=== PATIENT | male | born 1935 | race Caucasian/White ===

== ENCOUNTER 2016-10-24 00:50 | Inpatient (IN) | payer OTHER ==
[~2016-10-24] VITALS: Ht 177.8 cm; Wt 78.9 kg
[2016-10-24] VITALS (51 sets, daily range): BP systolic 81–158; BP diastolic 47–79; PULSE 69–96; TEMP 36.4–36.9; O2SAT 97–99; Ht 177.8 cm; Wt 78.9 kg
[2016-10-24] MEDS ORDERED: SODIUM CHLORIDE 0.9% 500ML 500 ML IV STA (01:08)
[2016-10-24] MEDS ORDERED: ONDANSETRON INJ 2 MG/ML 2 ML VIAL IV STA (01:08)
[2016-10-24] MEDS ORDERED: MoRPHine SULFATE 4 MG/ML 1 ML CARP\\VIAL IV STA (01:08)
--- NOTE | 2016-10-24 01:08 | EMERGENCY ROOM VISIT NOTE ---
History Report prepared by Herminio: Laura Graves Under the Supervision of: Dr. Narinder Swanson M.D. First contact with patient: 00:57 Chief Complaint: ABDOMINAL PAIN Stated Complaint: CHEST PAIN History of Present Illness The patient is a 81 year old male who presents to the Emergency Room with complaints of constant abdominal pain beginning 2 hours prior to arrival. He rates the pain at an 8/10. The patient states that he still has the pain right now and that it is exacerbated with palpation. He states that he has no history of a cardiac catheterization. His states that he took 2 Aspirin tonight prior to arrival. Source of History: patient Onset: 2 hours prior to arrival Position: abdomen Symptom Intensity: rated at an 8/10 Timing: constant Modifying Factors (Worsening): other (palpation) Review of Systems See HPI for pertinent positives & negatives. A total of 10 systems reviewed and were otherwise negative. Past Medical & Surgical Medical Problems: (1) Hypertension Family History No pertinent family history Social History Smoking Status: Former Smoker Marital Status: Current/Historical Medications Scheduled Aspirin (Aspirin), 1 TAB PO DAILY Atenolol (Tenormin), 50 MG PO DAILY Finasteride (Proscar), 5 MG PO DAILY Indapamide (Lozol), 1.25 MG PO DAILY Multiple Vitamins W/ Minerals (Centrum Adults), 1 TAB PO DAILY Ocuvite Preservision (Ocuvite Preservision), 1 TAB PO DAILY Tamsulosin Hcl (Flomax), 0.4 MG PO DAILY Allergies Coded Allergies: No Known Allergies (Unverified , 10/24/16) Physical Exam Vital Signs Date Time Temp Pulse Resp B/P (MAP) Pulse Ox O2 Delivery O2 Flow Rate FiO2 10/24/16 04:31 95 20 144/72 94 Room Air 10/24/16 03:21 36.8 88 21 151/81 95 Room Air 10/24/16 02:48 88 151/81 95 Room Air 10/24/16 02:20 93 21 10/24/16 01:29 Room Air 10/24/16 01:29 Room Air 10/24/16 01:05 100 10/24/16 01:01 160/87 10/24/16 00:53 36.8 101 22 103/62 94 Room Air Physical Exam GENERAL: Patient is a healthy-appearing well-nourished male HEAD: Normocephalic atraumatic EYES: Ocular movements intact pupils equal and react to light OROPHARYNX mucous membranes are moist no exudates present no erythema or edema present NECK: Supple no nuchal rigidity CHEST: Good equal expansion LUNGS: Clear and equal to auscultation CARDIAC: Normal S1 and S2 ABDOMEN: Tenderness in the epigastric region. Positive guarding. BACK: No CVA tenderness EXTREMITIES: No pain upon palpation normal muscle strength in all groups no clubbing cyanosis or edema NEURO: Patient is following commands and answering questions appropriately. Alert and oriented x3 Cranial Nerves 2-12 grossly intact Medical Decision & Procedures ER Provider Diagnostic Interpretation: 1 view of chest as reviewed by me: No evidence of pneumonia, congestion, or pneumothorax Radiology results as stated below per my review and radiologist interpretation: CTA CHEST: ADDENDUM: added by Maria Elena Sharma MD on 10/24/2016 3:05 AM (-07:00) Dilated bowel and free intraperitoneal air in the upper abdomen. See CTA abdomen and pelvis for further details. No evidence of pulmonary embolism, thoracic aortic aneurysm or dissection. No evidence of intramural hematoma on noncontrast CT. Small amount of fluid in the esophagus with esophageal wall thickening, possibly esophagitis related to gastroesophageal reflux or other process. Recommend clinical correlation. Cardiac size within normal limits. Small pericardial fluid.effusion. Hyperlucent and hyperinflated lungs consistent with emphysema/COPD. Evidence of prior granulomatous disease with left lung granulomas and calcified left hilar lymph nodes. Incidental thyroid nodules. Radiology results as stated below per my review and radiologist interpretation: CTA ABDOMEN & PELVIS: Dilated colon with extraluminal air most prominent in the region of the sigmoid colon with additional free air in the upper abdomen. Findings are consistent with bowel perforation, likely at the level of the sigmoid colon. There is focal wall thickening of the sigmoid colon with adjacent air and fluid collections suspicious for pericolonic abscess in the setting of perforation. Underlying colonic mass or perforated diverticulitis not excluded. Surgery consultation recommended. Peripheral air along the cecum as well as at the hepatic flexure favored to represent air trapped beneath liquid stool versus (less likely) pneumatosis. Areas of colonic ischemia or pneumatosis elated to obstruction not entirely excluded. 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 No evidence of active extravasation or periaortic hemorrhage to suggest rupture. Abdominal aorta and visualized branch vessels appear patent. Thick-walled distal esophagus containing fluid. Findings may represent esophagitis related to gastroesophageal reflux disease or other etiology. Low-attenuation structure in the right posterior aspect of the prostate measuring 10 mm. This may represent cyst or other lesion. Decompressed bladder with wall thickening which may be related to underdistention. Correlate with urinalysis to exclude cystitis. Laboratory Results 10/24/16 01:23 Red Blood Count 4.46, Mean Corpuscular Volume 84.5, Mean Corpuscular Hemoglobin 28.0, Mean Corpuscular Hemoglobin Concent 33.2, Mean Platelet Volume 9.3, Neutrophils (%) (Auto) 93.0, Lymphocytes (%) (Auto) 3.3, Monocytes (%) (Auto) 3.1, Eosinophils (%) (Auto) 0.1, Basophils (%) (Auto) 0.1, Neutrophils # (Auto) 11.39, Lymphocytes # (Auto) 0.41, Monocytes # (Auto) 0.38, Eosinophils # (Auto) 0.01, Basophils # (Auto) 0.01 10/24/16 01:23 Test 10/24/16 01:23 10/24/16 01:29 10/24/16 02:40 White Blood Count 12.25 K/uL (4.8-10.8) Red Blood Count 4.46 M/uL (4.7-6.1) Hemoglobin 12.5 g/dL (14.0-18.0) Hematocrit 37.7 % (42-52) Mean Corpuscular Volume 84.5 fL (80-100) Mean Corpuscular Hemoglobin 28.0 pg (25-34) Mean Corpuscular Hemoglobin Concent 33.2 g/dl (32-36) Platelet Count 672 K/uL (130-400) Mean Platelet Volume 9.3 fL (7.4-10.4) Neutrophils (%) (Auto) 93.0 % Lymphocytes (%) (Auto) 3.3 % Monocytes (%) (Auto) 3.1 % Eosinophils (%) (Auto) 0.1 % Basophils (%) (Auto) 0.1 % Neutrophils # (Auto) 11.39 K/uL (1.4-6.5) Lymphocytes # (Auto) 0.41 K/uL (1.2-3.4) Monocytes # (Auto) 0.38 K/uL (0.11-0.59) Eosinophils # (Auto) 0.01 K/uL (0-0.5) Basophils # (Auto) 0.01 K/uL (0-0.2) RDW Standard Deviation 41.1 fL (36.4-46.3) RDW Coefficient of Variation 13.4 % (11.5-14.5) Immature Granulocyte % (Auto) 0.4 % Immature Granulocyte # (Auto) 0.05 K/uL (0.00-0.02) Red Blood Cell Morphology Unremarkable Estimated GFR () 64.4 Estimated GFR (Non- 55.6 BUN/Creatinine Ratio 21.9 (10-20) Calcium Level 11.3 mg/dl (8.5-10.1) Total Bilirubin 0.4 mg/dl (0.2-1) Direct Bilirubin 0.2 mg/dl (0-0.2) Aspartate Amino Transf (AST/SGOT) 12 U/L (15-37) Alanine Aminotransferase (ALT/SGPT) 18 U/L (12-78) Alkaline Phosphatase 93 U/L (45-117) Total Creatine Kinase 10 U/L (39-308) Creatine Kinase MB 0.7 ng/ml (0.5-3.6) Creatine Kinase MB Ratio 7.0 (0-3.0) Troponin I < 0.015 ng/ml (0-0.045) Total Protein 6.6 gm/dl (6.4-8.2) Albumin 2.4 gm/dl (3.4-5.0) Lipase 172 U/L (73-393) Bedside Hemoglobin 13.3 g/dl (14.0-18.0) Bedside Hematocrit 39 % (42-52) Bedside Sodium 132 mEq/L (135-144) Bedside Potassium 3.1 mEq/L (3.3-5.0) Bedside Chloride 89 mEq/L (101-112) Bedside Total CO2 28 mEq/l (24-31) Anion Gap 18.0 mmol/L (16-25) Bedside Blood Urea Nitrogen 27 mg/dl (7-18) Bedside Creatinine 1.1 mg/dl (0.6-1.3) Bedside Glucose (other) 156 mg/dl (70-99) Bedside Ionized Calcium (Pola) 1.09 mmol/l (1.12-1.32) Prothrombin Time 13.3 SECONDS (9.0-12.0) Prothromb Time International Ratio 1.2 (0.9-1.1) Activated Partial Thromboplast Time 26.1 SECONDS (21.0-31.0) Partial Thromboplastin Ratio 1.0 Labs reviewed by ED physician. Medications Administered Medications (Trade) Dose Ordered Sig/Andrzej Route Start Time Stop Time Status Last Admin Dose Admin Sodium Chloride 500 ml @ 999 mls/hr Q31M STAT IV 10/24/16 01:08 10/24/16 01:38 DC 10/24/16 01:08 999 MLS/HR Imipenem/ Cilastatin Sodium 500 mg/Dextrose 110 ml @ 100 mls/hr NOW STAT IV 10/24/16 03:17 10/24/16 04:22 DC 10/24/16 04:26 100 MLS/HR Daptomycin 414 mg/ Sodium Chloride 58.28 ml @ 100 mls/hr NOW STAT IV 10/24/16 03:27 10/24/16 04:01 DC 10/24/16 03:27 100 MLS/HR ECG Indication: abdominal pain Rate (beats per minute): 103 Rhythm: sinus tachycardia Findings: no acute ischemic change, no ectopy ED Course 0107: Past medical records reviewed. The patient was evaluated in room B2. A complete history and physical examination was performed. 0108: Ordered Zofran Inj 4 mg IV, Morphine Sulfate 4 mg IV, Sodium Chloride 500 ml @ 999 mls/hr IV. 0317: Ordered Imipenem/Cilastatin Sodium 500 mg/Dextrose 110 ml @ 100 mls/hr IV. 0327: Ordered Daptomycin 414 mg/Sodium Chloride 58.28 ml @ 100 mls/hr IV. 0334: I discussed the patient's case with Dr. Santana, he has agreed to evaluate the patient for further management and care. 0336: Upon reexamination the patient is resting. I discussed results and treatment plan with the patient. He verbalizes agreement and understanding. Medical Decision Blood Pressure Screening: Patient was found to have an elevated blood pressure and was referred to their primary care doctor for recheck and further treatment Medication Reconciliation: I attest that I have personally reviewed the patient' s current medication list Differential diagnosis: Etiologies such as appendicitis, diverticulitis, PUD, biliary pathology, UTI, pancreatitis, obstruction, mesenteric ischemia, aortic pathology, infections, inflammatory bowel disease, renal colic, as well as others were entertained. This is an 81-year-old male who presents emergency department complaining of epigastric pain. The patient is right tender on examination. He is hypotensive upon arrival to emergency department. Due to the nature the patient 's pain and abdominal examination the patient was immediately sent for CAT scan of the abdomen and pelvis. This was concerning for free air along what appears to be a puncture in the sigmoid colon. The patient was therefore pancultured and started on antibiotics. I will note that there was a delay between the patient's CAT scan being performed and the read by stat rad due to the high volume and high acuity of the emergency department .I did discuss the case with the surgeon on-call who agreed to see the patient. The patient was given normal saline bolus as well as morphine. Repeat examination revealed improvement in the patient's vital signs. I discussed my findings with the family her were in agreement with the treatment plan. Consults Time Called: 030 Consulting Physician: Dr. Santana Returned Call: 033 I discussed the patient's case with Dr. Santana, he has agreed to evaluate the patient for further management and care. Impression Primary Impression: Perforated abdominal viscus Critical Care I have personally spent greater than 90 minutes of critical care time in the direct management of this patient. This includes bedside care, interpretation of diagnostic studies, and testing, discussion with consultants, patient, and family members, and other required patient management activities. This 90 minutes is in excess of all separately billable procedures. Scribe Attestation The scribe's documentation has been prepared under my direction and personally reviewed by me in its entirety. I confirm that the note above accurately reflects all work, treatment, procedures, and medical decision making performed by me. Departure Information Dispostion Being Evaluated By Surgeon Referrals No Doctor, Assigned (PCP) Patient Instructions My [facility]
[2016-10-24] MEDS ORDERED: OPTIRAY 320 IV PRN (01:30)
[2016-10-24 01:33] LABS: HEMATOCRIT 37.7 % (42-52); MEAN CELL VOLUME 84.5 fL (80-100); MEAN CORPUSCULAR HGB CONC 33.2 g/dl (32-36); MEAN PLATELET VOLUME 9.3 fL (7.4-10.4); PLATELET COUNT 672 K/uL (130-400); RED BLOOD COUNT 4.46 M/uL (4.7-6.1); WHITE BLOOD COUNT 12.25 K/uL (4.8-10.8)
[2016-10-24 01:43] LABS: ISTAT CREATININE 1.1 mg/dl (0.6-1.3); ISTAT HEMOGLOBIN 13.3 g/dl (14.0-18.0); ISTAT IONIZED CALCIUM 1.09 mmol/l (1.12-1.32)
[2016-10-24 01:50] LABS: ALT/SGPT 18 U/L (12-78); AST/SGOT 12 U/L (15-37); BLOOD UREA NITROGEN 26 mg/dl (7-18); BUN/CREATININE RATIO 21.9 (10-20); CALCIUM 11.3 mg/dl (8.5-10.1); CARBON DIOXIDE 29 mmol/L (21-32); CHLORIDE 92 mmol/L (98-107); GLUCOSE 149 mg/dl (70-99); POTASSIUM 3.2 mmol/L (3.5-5.1); SODIUM 134 mmol/L (136-145)
[2016-10-24 01:56] LABS: ALKALINE PHOSPHATASE 93 U/L (45-117)
[2016-10-24 01:57] LABS: BASO % 0.1 %; BASO ABS # 0.01 K/uL (0-0.2); COMPLETE YES; EOS % 0.1 %; IG% 0.4 %; LYMPH % 3.3 %; LYMPH ABS # 0.41 K/uL (1.2-3.4); MONO % 3.1 %
[2016-10-24] MEDS ORDERED: INDA1TAB3 PO (03:06)
[2016-10-24] MEDS ORDERED: MULT-190 PO (03:06)
[2016-10-24] MEDS ORDERED: MULT-610 PO (03:06)
[2016-10-24] MEDS ORDERED: TAMS0.4C38 PO (03:06)
[2016-10-24] MEDS ORDERED: ATEN50TA8 PO (03:06)
[2016-10-24] MEDS ORDERED: FINA5TAB4 PO (03:06)
[2016-10-24] MEDS ORDERED: ASPI1TAB83 PO (03:06)
[2016-10-24 03:13] LABS: INR 1.2 (0.9-1.1); PROTHROMBIN TIME (PATIENT) 13.3 SECONDS (9.0-12.0)
[2016-10-24] MEDS ORDERED: IMIPENEM/CILASTATIN IV 500 MG in DEXTROSE 5% 100ML 100 ML IV STA (03:17)
[2016-10-24] MEDS ORDERED: SODIUM CHLORIDE 0.9% IV STA (03:27)
[2016-10-24] MEDS ORDERED: DAPTOMYCIN IV STA (03:27)
--- NOTE | 2016-10-24 04:24 | History and Physical ---
History & Physical Date & Time of Service: Oct 24, 2016 at 04:20 Chief Complaint: Chest Pain Primary Care Physician: No Doctor, Assigned History of Present Illness Source: patient, family Family History No pertinent family history Social History Smoking Status: Former Smoker Marital Status: Allergies Coded Allergies: No Known Allergies (Unverified , 10/24/16) Home Medications Scheduled Aspirin (Aspirin), 1 TAB PO DAILY Atenolol (Tenormin), 50 MG PO DAILY Finasteride (Proscar), 5 MG PO DAILY Indapamide (Lozol), 1.25 MG PO DAILY Multiple Vitamins W/ Minerals (Centrum Adults), 1 TAB PO DAILY Ocuvite Preservision (Ocuvite Preservision), 1 TAB PO DAILY Tamsulosin Hcl (Flomax), 0.4 MG PO DAILY Review of Systems Constitutional: + weight loss Abdomen: + pain Physical Exam Vital Signs Date Time Temp Pulse Resp B/P (MAP) Pulse Ox O2 Delivery O2 Flow Rate FiO2 10/24/16 03:21 36.8 88 21 151/81 95 Room Air 10/24/16 02:48 88 151/81 95 Room Air 10/24/16 02:20 93 21 10/24/16 01:29 Room Air 10/24/16 01:29 Room Air 10/24/16 01:05 100 10/24/16 01:01 160/87 10/24/16 00:53 36.8 101 22 103/62 94 Room Air General Appearance: + mild distress Head: normocephalic, atraumatic Eyes: PERRL, EOMI ENT: hearing grossly normal Neck: supple, no JVD Respiratory/Chest: no respiratory distress, no accessory muscle use Cardiovascular: no edema Abdomen/GI: + tenderness, + guarding, + rebound Neurologic/Psych: alert Skin: normal color, warm/dry Diagnostics Laboratory Results Results Past 24 Hours Test 10/24/16 01:23 10/24/16 01:29 10/24/16 02:40 Range/Units White Blood Count 12.25 4.8-10.8 K/uL Red Blood Count 4.46 4.7-6.1 M/uL Hemoglobin 12.5 14.0-18.0 g/dL Hematocrit 37.7 42-52 % Mean Corpuscular Volume 84.5 80-100 fL Mean Corpuscular Hemoglobin 28.0 25-34 pg Mean Corpuscular Hemoglobin Concent 33.2 32-36 g/dl Platelet Count 672 130-400 K/uL Mean Platelet Volume 9.3 7.4-10.4 fL Neutrophils (%) (Auto) 93.0 % Lymphocytes (%) (Auto) 3.3 % Monocytes (%) (Auto) 3.1 % Eosinophils (%) (Auto) 0.1 % Basophils (%) (Auto) 0.1 % Neutrophils # (Auto) 11.39 1.4-6.5 K/uL Lymphocytes # (Auto) 0.41 1.2-3.4 K/uL Monocytes # (Auto) 0.38 0.11-0.59 K/uL Eosinophils # (Auto) 0.01 0-0.5 K/uL Basophils # (Auto) 0.01 0-0.2 K/uL RDW Standard Deviation 41.1 36.4-46.3 fL RDW Coefficient of Variation 13.4 11.5-14.5 % Immature Granulocyte % (Auto) 0.4 % Immature Granulocyte # (Auto) 0.05 0.00-0.02 K/uL Red Blood Cell Morphology Unremarkable Sodium Level 134 136-145 mmol/L Potassium Level 3.2 3.5-5.1 mmol/L Chloride Level 92 98-107 mmol/L Carbon Dioxide Level 29 21-32 mmol/L Anion Gap 13.0 18.0 16-25 mmol/L Blood Urea Nitrogen 26 7-18 mg/dl Creatinine 1.20 0.60-1.40 mg/dl Estimated GFR () 64.4 Estimated GFR (Non- 55.6 BUN/Creatinine Ratio 21.9 10-20 Random Glucose 149 70-99 mg/dl Calcium Level 11.3 8.5-10.1 mg/dl Total Bilirubin 0.4 0.2-1 mg/dl Direct Bilirubin 0.2 0-0.2 mg/dl Aspartate Amino Transf (AST/SGOT) 12 15-37 U/L Alanine Aminotransferase (ALT/SGPT) 18 12-78 U/L Alkaline Phosphatase 93 45-117 U/L Total Creatine Kinase 10 39-308 U/L Creatine Kinase MB 0.7 0.5-3.6 ng/ml Creatine Kinase MB Ratio 7.0 0-3.0 Troponin I < 0.015 0-0.045 ng/ml Total Protein 6.6 6.4-8.2 gm/dl Albumin 2.4 3.4-5.0 gm/dl Lipase 172 73-393 U/L Bedside Hemoglobin 13.3 14.0-18.0 g/dl Bedside Hematocrit 39 42-52 % Bedside Sodium 132 135-144 mEq/L Bedside Potassium 3.1 3.3-5.0 mEq/L Bedside Chloride 89 101-112 mEq/L Bedside Total CO2 28 24-31 mEq/l Bedside Blood Urea Nitrogen 27 7-18 mg/dl Bedside Creatinine 1.1 0.6-1.3 mg/dl Bedside Glucose (other) 156 70-99 mg/dl Bedside Ionized Calcium (Pola) 1.09 1.12-1.32 mmol/l Prothrombin Time 13.3 9.0-12.0 SECONDS Prothromb Time International Ratio 1.2 0.9-1.1 Activated Partial Thromboplast Time 26.1 21.0-31.0 SECONDS Partial Thromboplastin Ratio 1.[address] showing free air/pneumotosis; ? sigmoid mass Impression Assessment and Plan free air likely sigmoid colon source will need ex-lap and likely ac's procedure vs repair gastric/duodenal perforated ulcer discussed with patient and family at bedside risks include bleeding/infection/dvt/pe/mi/sepsis/injury to ureter/bowel/ bladder etc... will likely require colostomy questions answered. will proceed stat
[2016-10-24] MEDS ORDERED: LIDOCAINE HCL 2% 2 ML VIAL (20MG/ML) ONE (04:28)
[2016-10-24] MEDS ORDERED: ONDANSETRON INJ 2 MG/ML 2 ML VIAL ONE (04:28)
[2016-10-24] MEDS ORDERED: PROPOFOL IV EMULSION 10 MG/ML 20 ML VIAL IV ONE (04:28)
[2016-10-24] MEDS ORDERED: ROCURONIUM BROMIDE 10 MG/ML 5 ML VIAL ONE (04:29)
[2016-10-24] MEDS ORDERED: FENTANYL CITRATE INJ 50 MCG/1 ML 2 ML VIAL ONE (04:30)
[2016-10-24] MEDS ORDERED: ATROPINE SULFATE 0.1 MG/ML 5ML SYR IV PRN (04:45)
[2016-10-24] MEDS ORDERED: EpHEDrine SULFATE INJ 50 MG/ML AMP IV PRN (04:45)
[2016-10-24] MEDS ORDERED: ONDANSETRON INJ 2 MG/ML 2 ML VIAL IV PRN ×2 (04:45→07:30)
[2016-10-24] MEDS ORDERED: HYDROmorphone INJ 2 MG/ML SYR/VIAL IV PRN (04:45)
[2016-10-24] MEDS ORDERED: PHENYLEPHRINE 100MCG/ML 5ML SYR IV PRN (04:45)
[2016-10-24] MEDS: POTASSIUM CHLR 10 MEQ / WTR 10 MEQ in PREMIXED WATER 100 ML IV SCH ×2 (04:53→05:53)
[2016-10-24] MEDS ORDERED: ALBUMIN HUMAN 5% 12.5 GM/250 ML VIAL IV ONE ×2 (06:14→06:18)
--- NOTE | 2016-10-24 06:41 | DIAGNOSTIC IMAGING REPORT ---
CHEST ONE VIEW PORTABLE HISTORY:81 yearsMaleCHEST PAIN COMPARISON: Chest CT 10/24/2016 TECHNIQUE: Portable upright AP view of the chest FINDINGS: Cardiac silhouette is within normal limits. There is a calcified granuloma of the left upper lobe. Emphysematous changes are noted without pneumothorax, pleural effusion or focal airspace consolidation. There is mild right hemidiaphragmatic elevation. The bones are grossly intact. IMPRESSION: 1. Emphysema without acute cardiopulmonary process. 2. Prior granulomatous disease. The above report was generated using voice recognition software. It may contain grammatical, syntax or spelling errors. Electronically signed by: Campbell Sterling 10/24/2016 6:39 AM Dictated Date/Time: 10/24/2016 6:37 AM
--- NOTE | 2016-10-24 07:21 | [facility] Operative Report ---
Operative Report Operative Date Oct 24, 2016. Pre-Operative Diagnosis Perforated viscus Post-Operative Diagnosis Perforated sigmoid colon Procedure(s) Performed Exploratory laparotomy, sigmoid colectomy, end colostomy, cecostomy with decompression, and abdominal washout Surgeon Dr. Fabian Silver Collection Development Librarian Surgeon(s) None Estimated Blood Loss 20ml Findings perforated sigmoid colon;free air/fluid throughout abdomen; massively dilated cecum. Specimens A. Sigmoid colon Drains 19 gavin times 2 Anesthesia get Complication(s) None Disposition Surgical ICU Description of Procedure After informed consent was obtained the patient was taken to the operating suite placed in supine position. After successful intubation and nasogastric tube and Harrison catheter were placed. The abdomen was sterilely prepped and draped in usual fashion. Midline incision from above the umbilicus down to the suprapubic area was made with a 10 blade scalpel and carried down through the soft tissue using electrocautery. Anterior rectus fascia was opened using electrocautery exposing peritoneum. Peritoneum was elevated with hemostats and incised under direct vision using a Metzenbaum scissor. We then used electrocautery to open the incision the both poles. Immediately upon entering the abdomen there was a large amount of purulent fluid. There was not a foul odor but there was a large amount of white edgar free fluid as well as free air. The cecum was massively dilated up to the hepatic flexure. We began by simply exploring the abdomen irrigating and suctioning. Initially had trouble identifying exactly where the perforation was. Stomach and duodenum appeared normal. The cecum appeared normal other than being massively dilated. We followed this clear around the sigmoid colon. The sigmoid colon was markedly inflamed and stuck to the pelvic brim. I freed this up using blunt finger fractionation and encountered a very large abscess cavity. Once we free this up there was an obvious perforation of the sigmoid colon. I began by transecting the sigmoid colon proximal to this area with a MADELYN purple cartridge stapler. I then used LigaSure to come down the mesentery. Just distal to the perforation I was able to free up the mesentery and make a small opening in it. We used a another MADELYN purple cartridge linear stapler to transect this. Once we did this I used LigaSure to take down the mesentery and handed off portion of sigmoid colon to be sent to pathology. It was very hard and was unclear to me whether this was diverticular disease versus a perforated tumor. I did not see any evidence of tumor anywhere else such as the peritoneal surfaces or the liver. Once we had the perforation out I did thoroughly irrigated with irrigating all 4 quadrants of the abdomen. The cecum being massively dilated starting to have some serosal tears on. He despite denying abdominal surgery in the past clearly did have surgery as we saw silk sutures and the mesentery as well as his appendix was missing. I did make a small cecostomy and decompressed the entire sigmoid colon up to the hepatic flexure. We milked out brown liquid stool as well as air. Once we had this adequately decompressed I then used a MADELYN stapler with a 10 cartridge to close the cecostomy. I did oversew the staple line with 3-0 silk in Lembert fashion. I did explore the abdomen one final time. I saw no other gross abnormalities. We did a final irrigation. I fashioned a colostomy site in the left lower quadrant using electrocautery. I made a cruciate incision in the fascia and using blunt spreading of the muscle. A [place] clamp was then used to pull the end of the left colon out through this was performed without tension and without twisting it. I then used 2 #19 Gavin drains through separate stab incisions one directed into the pelvis and one directed along the left paracolic gutter up in the left upper quadrant. There is secured to skin using 2-0 silk. I then closed the fascia using #1 PDS starting at either pole running them and securing them in the midline. Soft tissue was irrigated and closure using skin moe loosely. I then fashioned a Farrah colostomy with 3-0 PDS. I placed an appliance bag. We then covered the incision was silver dressing gauze and tape. The patient remained intubated and was transferred to the intensive care unit in critical condition I attest to the content of the Intraoperative Record and any orders documented therein. Any exceptions are noted below.
[2016-10-24] MEDS ORDERED: PIPERACILL/TAZOBAC CONSULT ACTIVE PRN (07:30)
[2016-10-24] MEDS ORDERED: MoRPHine SULFATE 4 MG/ML 1 ML CARP\\VIAL IV PRN (07:30)
[2016-10-24] MEDS ORDERED: PIPERACILL/TAZOBAC IV 2.25 GM in DEXTROSE 5% 100ML 100 ML IV SCH (07:30)
[2016-10-24] MEDS ORDERED: MoRPHine SULFATE 2 MG/ML CARP IV PRN (07:30)
[2016-10-24] MEDS ORDERED: SODIUM CHLORIDE 0.9% 1000ML 1,000 ML IV SCH (07:30)
--- NOTE | 2016-10-24 07:44 | DIAGNOSTIC IMAGING REPORT ---
CT ANGIOGRAM OF THE CHEST COMBO; CT angiogram of the abdomen and pelvis CLINICAL HISTORY: Epigastric abdominal pain. COMPARISON STUDY: Chest x-ray dated 10/24/2016. TECHNIQUE: Unenhanced CT scan of the chest was performed. Subsequent, following the IV administration of 119 cc of Optiray 320, CT angiogram of the chest, abdomen, and pelvis was performed from the thoracic inlet to the proximal femora. Images are reviewed in the axial, sagittal, and coronal planes. 3-D MIPS images are created and assessed. IV contrast was administered without complication. Automated dose control exposure was utilized. CT DOSE: 972.02 mGy.cm FINDINGS: CHEST: Thyroid: Imaged portions of the thyroid gland are normal in size and attenuation. There are numerous bilateral low-attenuation nodules. The largest is on the left and measures up to 1.1 cm. Coarse calcifications are noted. Thoracic aorta: No intramural hematoma is identified on the unenhanced series. There is atherosclerotic calcification of the thoracic aorta, which is normal in caliber and demonstrates standard 3-vessel arch anatomy. No dissection is seen. The arch vessels are widely patent. Pulmonary vasculature: The pulmonary trunk is normal in caliber. There are no filling defects identified in the central pulmonary vessels to indicate pulmonary embolus. Note that this examination was not protocoled for evaluation of the pulmonary arteries. Heart: The heart is normal in size and there is trace pericardial effusion. The coronary arteries are calcified. Lungs and pleural spaces: There is advanced emphysema. No airspace consolidation or pleural effusion is identified. The trachea and central airways are clear. Scattered calcified granulomas are observed. A 3 mm pleural-based nodule is seen in the right middle lobe on image #206 of the unenhanced series. Mediastinum: There is no mediastinal lymphadenopathy. Rsoario: There are calcified hilar nodes. No hilar adenopathy is seen. Axillae: There is no axillary lymphadenopathy. Bony thorax: The skeletal structures are osteopenic. No lytic or blastic lesions are identified. Degenerative change is seen throughout the thoracic spine. ABDOMEN AND PELVIS: Liver: The contrast-enhanced liver is normal in size, contour, and attenuation. There is no intrahepatic biliary ductal dilatation. Numerous calcified hepatic granulomas are identified. A 1.5 cm cyst is noted in the left hepatic lobe. Additional subcentimeter hypodensities also likely represent cysts but are too small for definitive characterization. Gallbladder: Unremarkable. Spleen: Normal in size and attenuation. There are numerous calcified splenic granulomas. Pancreas: Atrophic and grossly unremarkable. Adrenal glands: There is nodular thickening of the adrenal glands. Kidneys: The contrast enhanced kidneys are atrophic and without hydronephrosis. There is a left-sided extrarenal pelvis. The kidneys enhance symmetrically. Abdominal aorta and iliac arteries: There is advanced atherosclerotic calcification of the abdominal aorta and iliac arteries. 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 This measures 3.3 cm in AP diameter and 3.4 cm in transverse outer. A focal dissection is seen within this aneurysm as seen on axial image #190. The abdominal aorta is widely patent. The iliac arteries are widely patent bilaterally, as are the common femoral arteries and the imaged portions of the proximal superficial femoral arteries. Major branches of the abdominal aorta: The celiac trunk, superior mesenteric, and inferior mesenteric arteries are widely patent. Hepatic arterial anatomy is conventional. The splenic artery is patent. Single renal arteries are widely patent bilaterally. Stomach and bowel: Mild wall thickening is seen in the mid to distal esophagus. There is a small hiatal hernia. The stomach and duodenum otherwise normal in configuration. There is no evidence of bowel obstruction. The right colon is markedly distended, filled with gas and liquid stool. The cecum measures up to 10 cm in diameter. There is pneumatosis intestinalis involving the right colon, greatest in the cecum. There is mild colonic diverticulosis without CT evidence of acute diverticulitis. There is abnormal wall thickening versus underdistention seen involving a portion of the sigmoid colon seen on axial image #353. The appendix is not clearly identified. Peritoneum: There are numerous foci of intraperitoneal free air is seen throughout the abdomen and pelvis, greatest in the pelvis. There is a small volume of perihepatic and perisplenic ascites, as well as fluid in the paracolic gutters and pelvis. Lymphadenopathy: None. Pelvic viscera: The prostate gland is enlarged and heterogeneous measuring 6.0 cm in transverse diameter. There is median lobe hypertrophy. A 1.4 cm low-attenuation nodule is noted in the right lobe of the prostate gland on image #426. The bladder wall is thickened and trabeculated suggesting the sequelae of chronic outlet obstruction. Skeletal structures: The skeletal structures are osteopenic. There is moderate to advanced lumbosacral spondylosis. Advanced arthritic change is seen in the hips. No lytic or blastic lesions are seen. IMPRESSION: 1. Advanced emphysema. 2. There is no aneurysm or dissection seen involving the thoracic aorta. 3. No airspace consolidation or pleural effusion is identified. 4. Wall thickening and hyperemia is suggested involving the distal esophagus. Correlate clinically for evidence of esophagitis. 5. 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 6. The right colon is markedly abnormal. The cecum is distended and fluid-filled. There is pneumatosis intestinalis involving the cecum, and the appearance is highly concerning for ischemic colitis. 7. There is underdistention versus abnormal wall thickening identified in the sigmoid colon. Adjacent free air and fluid are identified. A mass lesion with perforation is not excluded. 8. There are numerous foci of intraperitoneal free air throughout the abdomen and pelvis consistent with visceral perforation. A small volume of abdominopelvic ascites is identified. This is most likely related to either the sigmoid colon or the right colon. Surgical consultation is advised. 9. The prostate gland is enlarged and heterogeneous, and there is evidence of chronic bladder obstruction. A 1.4 cm low-attenuation nodule is suggested in the right lobe of the prostate. Follow-up with serum PSA levels is recommended. 10. The celiac trunk, superior mesenteric artery, and inferior mesenteric artery are widely patent. 11. Additional findings as above. Electronically signed by: Jed Guidry M.D. 10/24/2016 7:43 AM Dictated Date/Time: 10/24/2016 7:22 AM
[2016-10-24] MEDS ORDERED: LACTATED RINGER'S 1000ML 1,000 ML IV SCH (08:00)
[2016-10-24] MEDS ORDERED: PIPERACILL/TAZOBAC IV 3.375 GM in DEXTROSE 5% 100ML IV ONE (08:00)
--- NOTE | 2016-10-24 08:02 | Critical Care Consultation ---
Critical Care Consultation Date of Consultation: Oct 24, 2016. Attending Physician: Fabian Silver D.O. Reason for Consultation: Perforated Bowel History of Present Illness He was admitted to the hospital with a perforated bowel. Required exploration and diversion. He comes to the ICU after surgery intubated and critically ill. The operative information and anesthesia interventions noted. Directly reviewed care and performed evaluation with ICU team AM today. Past Medical/Surgical History HTN BPH Mild Cognitive Decline--able to perform all ADLs OA with hip pain--uses a cane Family History No pertinent family history Social History Smoking Status: Former Smoker Marital Status: Allergies Coded Allergies: No Known Allergies (Unverified , 10/24/16) Home Medications Scheduled Aspirin (Aspirin), 1 TAB PO DAILY Atenolol (Tenormin), 50 MG PO DAILY Finasteride (Proscar), 5 MG PO DAILY Indapamide (Lozol), 1.25 MG PO DAILY Multiple Vitamins W/ Minerals (Centrum Adults), 1 TAB PO DAILY Ocuvite Preservision (Ocuvite Preservision), 1 TAB PO DAILY Tamsulosin Hcl (Flomax), 0.4 MG PO DAILY Current Inpatient Medications Current Inpatient Medications Medications (Trade) Dose Ordered Sig/Andrzej Route Start Time Stop Time Status Last Admin Dose Admin Ioversol (Optiray 320) 125 ml UD PRN IV 10/24/16 01:30 10/28/16 01:29 Hydromorphone HCl (Dilaudid Inj) 0.5 mg Q5M PRN IV 10/24/16 04:45 10/24/16 10:00 Ondansetron HCl (Zofran Inj) 4 mg ONE PRN IV 10/24/16 04:45 10/24/16 10:00 Ephedrine Sulfate (EpHEDrine SULFATE INJ) 5 mg Q5M PRN IV 10/24/16 04:45 10/24/16 10:00 Atropine Sulfate (Atropine Sulfate 0.1MG/Ml Inj) 0.5 mg Q1M PRN IV 10/24/16 04:45 10/24/16 10:00 Phenylephrine HCl (Edvin-Synephrine 500MCG/5ML Syr) 100 mcg Q5M PRN IV 10/24/16 04:45 10/24/16 10:00 Sodium Chloride 1,000 ml @ 125 mls/hr Q8H IV 10/24/16 07:30 11/23/16 07:29 Piperacillin Sod/ Tazobactam Sod 3.375 gm/Dextrose 115 ml @ 230 mls/hr 0800 ONCE IV 10/24/16 08:00 10/24/16 08:29 Piperacillin Sod/ Tazobactam Sod 3.375 gm/Dextrose 115 ml @ 28.75 mls/ hr Q8H IV 10/24/16 14:00 11/03/16 13:59 Piperacillin Sod/ Tazobactam Sod (Consult) 1 ea UD PRN N/A 10/24/16 07:30 11/23/16 07:29 Lactated Ringer's 1,000 ml @ 150 mls/hr Q6H40M IV 10/24/16 08:00 11/23/16 07:59 Morphine Sulfate (MoRPHine SULFATE INJ) 2 mg Q3H PRN IV 10/24/16 07:30 11/07/16 07:29 Morphine Sulfate (MoRPHine SULFATE INJ) 4 mg Q3H PRN IV 10/24/16 07:30 11/07/16 07:29 Ondansetron HCl (Zofran Inj) 4 mg Q6H PRN IV 10/24/16 07:30 11/23/16 07:29 Acetaminophen 100 ml @ 400 mls/hr Q8H PRN IV 10/24/16 07:30 11/23/16 07:29 Enoxaparin Sodium (Lovenox Inj) 40 mg QAM SQ 10/24/16 09:00 11/23/16 08:59 UNV Lorazepam (Ativan Inj) 1 mg UD PRN IV 10/24/16 07:45 11/23/16 07:44 UNV Fentanyl Citrate (Fentanyl Inj) 25 mcg UD PRN IV 10/24/16 07:45 11/07/16 07:44 UNV Potassium Chloride 10 meq/ Prmx 100 ml @ 100 mls/hr NOW STAT IV 10/24/16 07:44 10/24/16 08:43 UNV Lactated Ringer's 1,000 ml @ 125 mls/hr Q8H IV 10/24/16 07:45 11/23/16 07:44 UNV Review of Systems The review was limited given the intubation and postoperative sedation. No clear target pain. Awakes to time. Synchronous on the vent. Physical Exam Date Time Temp Pulse Resp B/P (MAP) Pulse Ox O2 Delivery O2 Flow Rate FiO2 10/24/16 07:45 87 16 149/74 (89) 99 10/24/16 07:35 85 16 144/72 (91) 97 10/24/16 07:25 85 16 152/68 (107) 99 Mechanical Ventilator 100 10/24/16 07:20 100 10/24/16 07:15 36.5 88 16 158/75 (116) 99 Mechanical Ventilator 100 10/24/16 04:31 95 20 144/72 94 Room Air 10/24/16 03:21 36.8 88 21 151/81 95 Room Air 10/24/16 02:48 88 151/81 95 Room Air 10/24/16 02:20 93 21 10/24/16 01:29 Room Air 10/24/16 01:29 Room Air 10/24/16 01:05 100 10/24/16 01:01 160/87 10/24/16 00:53 36.8 101 22 103/62 94 Room Air Gen--frail elderly man--cachectic HEENT--no focal targets. ETT in place. Respiratory--exchange is adequate without substantial wheezing/rhonchi Cardio--rate and volume ok. for now. Perfusion adequate--no JVD observed. No substantial murmur GI--quiet--drains in place --cardona to gravity Musculo--poor muscle mass Neuro--no focal deficits appreciated--responding to nursing Psych--negative Derm--no lesions of concern at this point. Laboratory Results Last 24 Hours Test 10/24/16 01:23 10/24/16 01:29 10/24/16 02:40 White Blood Count 12.25 K/uL Red Blood Count 4.46 M/uL Hemoglobin 12.5 g/dL Hematocrit 37.7 % Mean Corpuscular Volume 84.5 fL Mean Corpuscular Hemoglobin 28.0 pg Mean Corpuscular Hemoglobin Concent 33.2 g/dl Platelet Count 672 K/uL Mean Platelet Volume 9.3 fL Neutrophils (%) (Auto) 93.0 % Lymphocytes (%) (Auto) 3.3 % Monocytes (%) (Auto) 3.1 % Eosinophils (%) (Auto) 0.1 % Basophils (%) (Auto) 0.1 % Neutrophils # (Auto) 11.39 K/uL Lymphocytes # (Auto) 0.41 K/uL Monocytes # (Auto) 0.38 K/uL Eosinophils # (Auto) 0.01 K/uL Basophils # (Auto) 0.01 K/uL RDW Standard Deviation 41.1 fL RDW Coefficient of Variation 13.4 % Immature Granulocyte % (Auto) 0.4 % Immature Granulocyte # (Auto) 0.05 K/uL Red Blood Cell Morphology Unremarkable Sodium Level 134 mmol/L Potassium Level 3.2 mmol/L Chloride Level 92 mmol/L Carbon Dioxide Level 29 mmol/L Anion Gap 13.0 mmol/L 18.0 mmol/L Blood Urea Nitrogen 26 mg/dl Creatinine 1.20 mg/dl Estimated GFR () 64.4 Estimated GFR (Non- 55.6 BUN/Creatinine Ratio 21.9 Random Glucose 149 mg/dl Calcium Level 11.3 mg/dl Total Bilirubin 0.4 mg/dl Direct Bilirubin 0.2 mg/dl Aspartate Amino Transf (AST/SGOT) 12 U/L Alanine Aminotransferase (ALT/SGPT) 18 U/L Alkaline Phosphatase 93 U/L Total Creatine Kinase 10 U/L Creatine Kinase MB 0.7 ng/ml Creatine Kinase MB Ratio 7.0 Troponin I < 0.015 ng/ml Total Protein 6.6 gm/dl Albumin 2.4 gm/dl Lipase 172 U/L Bedside Hemoglobin 13.3 g/dl Bedside Hematocrit 39 % Bedside Sodium 132 mEq/L Bedside Potassium 3.1 mEq/L Bedside Chloride 89 mEq/L Bedside Total CO2 28 mEq/l Bedside Blood Urea Nitrogen 27 mg/dl Bedside Creatinine 1.1 mg/dl Bedside Glucose (other) 156 mg/dl Bedside Ionized Calcium (Pola) 1.09 mmol/l Prothrombin Time 13.3 SECONDS Prothromb Time International Ratio 1.2 Activated Partial Thromboplast Time 26.1 SECONDS Partial Thromboplastin Ratio 1.0 Assessment & Plan Perforated Viscous with surgical exploration and diversion: 1. Cardio--will volume replace as needed.--Currently stable--track for urine output. May require IV metoprolol given the history of Atenolol. 2. Pulmonary--currently tolerating limited support. Recheck CXR. If able plan to extubate in next 24 hours 3. GI--supportive care for now. enteral feeding when surgery advises-- 4. F/E/N--will optimize numbers 5. Renal--track urine output closely 6. General ICU--PICC for access/antibiotics/replacements--DVT prophylaxis
[2016-10-24] MEDS ORDERED: POTASSIUM CHLR 10 MEQ / WTR 10 MEQ in PREMIXED WATER 100 ML IV ONE (08:30)
--- NOTE | 2016-10-24 08:37 | Anesthesiology Progress Note ---
Anesthesia Post Op Note Date & Time Oct 24, 2016 at 08:35 Vital Signs Pain Intensity: 0.0 Vital Signs Past 12 Hours Date Time Temp Pulse Resp B/P (MAP) Pulse Ox O2 Delivery O2 Flow Rate FiO2 10/24/16 07:55 36.0 86 17 147/74 (116) 99 Mechanical Ventilator 100 10/24/16 07:45 87 16 149/74 (89) 99 10/24/16 07:35 85 16 144/72 (91) 97 10/24/16 07:30 36.5 88 14 158/75 99 Mechanical Ventilator 100 10/24/16 07:25 85 16 152/68 (107) 99 Mechanical Ventilator 100 10/24/16 07:20 100 10/24/16 07:15 36.5 88 16 158/75 (116) 99 Mechanical Ventilator 100 10/24/16 04:31 95 20 144/72 94 Room Air 10/24/16 03:21 36.8 88 21 151/81 95 Room Air 10/24/16 02:48 88 151/81 95 Room Air 10/24/16 02:20 93 21 10/24/16 01:29 Room Air 10/24/16 01:29 Room Air 10/24/16 01:05 100 10/24/16 01:01 160/87 10/24/16 00:53 36.8 101 22 103/62 94 Room Air Notes Nausea / Vomiting: adequately controlled Pain: adequately controlled Airway Patency, RR, SpO2: see Notes BP & HR: see Notes Hydration State: see Notes The patient was in early sepsis and was left intubated and placed on the ventilator in the ICU. His vital signs were stable on admission.
[2016-10-24 08:52] LABS: URINE APPEARANCE CLOUDY (CLEAR); URINE BILIRUBIN NEG (NEG); URINE COLOR DK YELLOW; URINE EPITHELIAL CELL AUTO >30 /lpf (0-5); URINE NITRITE NEG (NEG); URINE PH 5.5 (4.5-7.5); URINE SPECIFIC GRAVITY > 1.045 (1.000-1.030); UROBILINOGEN NEG (NEG); ZZUR CULT IF INDIC CLEAN CATCH YES
[2016-10-24 09:04] LABS: MANUAL MICROSCOPIC REQUIRED? NO; REVIEW REQ? YES
[2016-10-24] MEDS: FAMOTIDINE IV INJ 20 MG in DEXTROSE 5% 100ML 100 ML IV SCH ×2 (09:24→21:00)
[2016-10-24] MEDS: LACTATED RINGER'S 1000ML 1,000 ML IV SCH ×2 (09:26→15:52)
[2016-10-24] MEDS: LORAZEPAM 2 MG/ML 1 ML VIAL IV PRN ×2 (09:26→18:42)
[2016-10-24] MEDS: FENTANYL CITRATE INJ 50 MCG/1 ML 2 ML VIAL IV PRN (09:27)
--- NOTE | 2016-10-24 09:32 | DIAGNOSTIC IMAGING REPORT ---
CHEST ONE VIEW PORTABLE CLINICAL HISTORY: vent tube position COMPARISON STUDY: 10/24/2016 1:18 AM FINDINGS: Interval placement of an endotracheal tube 4.5 cm both keyur. Lungs remain clear. Emphysematous changes again noted. There is nasogastric tube position within the stomach, versus the possibility of a drainage catheter in left upper quadrant. The radiopaque marker of the nasogastric tube appears to be discontinuous. Radiopaque marker terminates at the distal esophagus with a curved tube position overlying the the stomach, or drainage catheter in left upper quadrant. IMPRESSION: 1. Endotracheal tube 4.5 cm both keyur 2. Nasogastric tube positioned within the distal esophagus, versus a discontinuous radiopaque marker with the catheter coiled within the stomach. 3. Alternatively, the nasogastric tube is positioned within the distal esophagus, and should be repositioned, with the second catheter represent a drainage catheter in the left upper quadrant Electronically signed by: Jagdish Shrestha M.D. 10/24/2016 9:31 AM Dictated Date/Time: 10/24/2016 9:26 AM
[2016-10-24 11:11] LABS: HEMATOCRIT 28.9 % (42-52); MEAN CELL VOLUME 84.3 fL (80-100); MEAN CORPUSCULAR HEMOGLOBIN 26.5 pg (25-34); MEAN CORPUSCULAR HGB CONC 31.5 g/dl (32-36); MEAN PLATELET VOLUME 9.1 fL (7.4-10.4); PLATELET COUNT 508 K/uL (130-400); RED BLOOD COUNT 3.43 M/uL (4.7-6.1); WHITE BLOOD COUNT 15.76 K/uL (4.8-10.8)
[2016-10-24 11:12] LABS: COMPLETE YES; IG% 0.5 %; LYMPH % 1.3 %; MONO % 2.2 %
[2016-10-24 11:31] LABS: BUN/CREATININE RATIO 22.8 (10-20); CALCIUM 9.9 mg/dl (8.5-10.1); CREATININE 1.2 mg/dl (0.60-1.40); POTASSIUM 4.6 mmol/L (3.5-5.1)
[2016-10-24] MEDS ORDERED: PNEUMOCOCCAL ADMINISTRATION CHARGE ONE (13:45)
[2016-10-24] MEDS ORDERED: PNEUMOCOCCAL POLYSACCHARIDES 25 MCG/0.5 ML VIAL/SYR IM. ONE (13:45)
[2016-10-24] MEDS ORDERED: PIPERACILL/TAZOBAC IV 3.375 GM in DEXTROSE 5% 100ML 100 ML IV SCH (14:00)
[2016-10-24] MEDS: PIPERACILL/TAZOBAC IV 3.375 GM in DEXTROSE 5% 100ML IV SCH ×2 (14:42→21:01)
[2016-10-24] MEDS: ENOXAPARIN 40 MG/0.4 ML SYR SQ SCH (15:03)
[2016-10-24] MEDS: MoRPHine SULFATE 2 MG/ML CARP IV PRN (16:06)
[2016-10-25] VITALS (19 sets, daily range): BP systolic 99–142; BP diastolic 54–95; PULSE 70–89; TEMP 36.8–37; O2SAT 91–100
[2016-10-25] MEDS: MoRPHine SULFATE 2 MG/ML CARP IV PRN (00:40)
[2016-10-25] MEDS: LORAZEPAM 2 MG/ML 1 ML VIAL IV PRN (01:01)
[2016-10-25] MEDS: LACTATED RINGER'S 1000ML 1,000 ML IV SCH ×3 (01:01→16:46)
[2016-10-25] MEDS: PIPERACILL/TAZOBAC IV 3.375 GM in DEXTROSE 5% 100ML IV SCH ×3 (05:43→21:55)
[2016-10-25 06:06] LABS: HEMATOCRIT 26.3 % (42-52); MEAN CELL VOLUME 84.3 fL (80-100); MEAN CORPUSCULAR HEMOGLOBIN 27.2 pg (25-34); MEAN CORPUSCULAR HGB CONC 32.3 g/dl (32-36); MEAN PLATELET VOLUME 8.9 fL (7.4-10.4); PLATELET COUNT 482 K/uL (130-400); RED BLOOD COUNT 3.12 M/uL (4.7-6.1); WHITE BLOOD COUNT 15.66 K/uL (4.8-10.8)
[2016-10-25 06:31] LABS: BASO % 0.1 %; BASO ABS # 0.01 K/uL (0-0.2); COMPLETE YES; EOS % 0.3 %; IG% 0.4 %; LYMPH % 2.2 %; LYMPH ABS # 0.35 K/uL (1.2-3.4); MONO % 2.7 %; NEUT % 94.3 %; OVALOCYTES 1+
[2016-10-25 06:46] LABS: BUN/CREATININE RATIO 27.1 (10-20); CALCIUM 9.8 mg/dl (8.5-10.1); CREATININE 0.87 mg/dl (0.60-1.40)
--- NOTE | 2016-10-25 07:59 | Critical Care Progress Note ---
Critical Care Progress Note Date of Service Oct 25, 2016. ICU Day ICU Day Number: [address] Rojas Subjective He is sedated but able to arouse some. Wean trial looking good. No Temp. Secretions minimal. Volume status ok. Objective Gen--calm and comfortable HEENT--no focal target-- Respiratory--exchange is good Cardio--volume status appropriate GI--functional--small amount of stool in the bag with gas --cardona to gravity Musculo--rate and volume ok Neuro--no focal changes. Derm--intact--wound ok Psych--somewhat sedated at this point Current SOFA Score SOFA Score Response (Comments) Value PaO2/FiO2 (mmHg) < 300 2 SaO2 / FIO2 142 - 220 2 Platelets (x10) > 150 0 Bilirubin (mg/dL) < 1.2 0 Renetta Coma Score 10 - 12 2 Level of Hypotension No Hypotension 0 Creatinine (mg/dL) 1.2 - 1.9 1 Total 7 Assessment & Plan Bowel Perforation--Vent 1. Respiratory--wean and extubate 2. Cardio--volume status ok--no additions or changes, consider low dose of beta humble 3. GI--trickle feed when ok with surgery 4. Neuro--holding sedation 5. Disposition--will require Rehab care. Consults & Procedures Consultants: see orders Procedures: none Data Medications: Current Inpatient Medications Medications (Trade) Dose Ordered Sig/Andrzej Route Start Time Stop Time Status Last Admin Dose Admin Ioversol (Optiray 320) 125 ml UD PRN IV 10/24/16 01:30 10/28/16 01:29 Piperacillin Sod/ Tazobactam Sod 3.375 gm/Dextrose 115 ml @ 28.75 mls/ hr Q8H IV 10/24/16 14:00 11/03/16 13:59 10/25/16 05:43 28.75 MLS/HR Piperacillin Sod/ Tazobactam Sod (Consult) 1 ea UD PRN N/A 10/24/16 07:30 11/23/16 07:29 Morphine Sulfate (MoRPHine SULFATE INJ) 2 mg Q3H PRN IV 10/24/16 07:30 11/07/16 07:29 10/25/16 00:40 2 MG Morphine Sulfate (MoRPHine SULFATE INJ) 4 mg Q3H PRN IV 10/24/16 07:30 11/07/16 07:29 Ondansetron HCl (Zofran Inj) 4 mg Q6H PRN IV 10/24/16 07:30 11/23/16 07:29 Acetaminophen 100 ml @ 400 mls/hr Q8H PRN IV 10/24/16 07:30 11/23/16 07:29 Enoxaparin Sodium (Lovenox Inj) 40 mg QAM SQ 10/24/16 14:00 11/23/16 13:59 10/24/16 15:03 40 MG Lorazepam (Ativan Inj) 1 mg Q30M PRN IV 10/24/16 07:45 11/23/16 07:44 10/25/16 01:01 1 MG Fentanyl Citrate (Fentanyl Inj) 25 mcg Q30M PRN IV 10/24/16 07:45 11/07/16 07:44 10/24/16 09:27 25 MCG Lactated Ringer's 1,000 ml @ 125 mls/hr Q8H IV 10/24/16 08:30 11/23/16 08:29 10/25/16 01:01 125 MLS/HR Famotidine 20 mg/ Dextrose 102 ml @ 204 mls/hr Q12@0900,2100 IV 10/24/16 09:00 11/23/16 08:59 10/24/16 21:00 204 MLS/HR Heparin Sodium (Porcine) (Heparin 10 Unit/ ml 5 ml Flush) 5 ml PRN PRN FLUSH 10/24/16 12:45 11/23/16 12:44 Vital Signs: Date Time Temp Pulse Resp B/P (MAP) Pulse Ox O2 Delivery O2 Flow Rate FiO2 10/25/16 06:00 76 12 112/62 (79) 96 CPAP 35 Mechanical Ventilator 10/25/16 05:02 35 10/25/16 04:00 40 10/25/16 04:00 36.9 72 12 117/57 (77) 97 Mechanical Ventilator 40 10/25/16 04:00 97 Mechanical Ventilator 40 10/25/16 02:01 75 12 104/54 (71) 94 10/25/16 01:48 50 10/25/16 00:00 36.8 75 13 114/62 (79) 99 Mechanical Ventilator 50 10/25/16 00:00 99 Mechanical Ventilator 50 10/25/16 00:00 50 10/24/16 22:02 50 10/24/16 22:01 71 14 101/60 (74) 97 10/24/16 21:31 72 14 103/60 (74) 98 10/24/16 21:01 74 14 115/65 (82) 98 10/24/16 20:31 69 13 98/56 (70) 98 10/24/16 20:01 36.9 70 13 106/59 (75) 98 Mechanical Ventilator 50 10/24/16 20:00 50 10/24/16 20:00 98 Mechanical Ventilator 50 10/24/16 19:27 50 10/24/16 18:00 76 13 94/58 (70) 98 Mechanical Ventilator 50 10/24/16 18:00 50 10/24/16 16:00 99 Mechanical Ventilator 50 10/24/16 16:00 50 10/24/16 16:00 36.4 78 12 109/63 (78) 99 Mechanical Ventilator 50 10/24/16 14:44 50 10/24/16 14:01 80 13 120/67 (84) 98 10/24/16 13:40 77 12 98 10/24/16 12:41 70 12 99 10/24/16 12:31 70 12 112/68 (83) 99 10/24/16 12:31 70 12 112/68 (82) 99 10/24/16 12:11 72 12 99 10/24/16 12:01 74 13 136/79 (104) 99 10/24/16 12:01 74 13 136/79 (98) 99 10/24/16 12:00 50 10/24/16 12:00 73 12 98 10/24/16 12:00 98 Mechanical Ventilator 50 10/24/16 11:55 50 10/24/16 11:41 74 14 98 10/24/16 11:31 71 12 134/77 (105) 10/24/16 11:31 71 12 134/77 (96) 10/24/16 11:11 71 13 97 10/24/16 11:01 70 11 93/52 (69) 98 10/24/16 11:00 71 11 98 10/24/16 11:00 71 11 98 10/24/16 10:56 70 10 98 10/24/16 10:41 72 11 99 10/24/16 10:31 73 9 81/48 (59) 98 10/24/16 10:31 73 9 81/48 (59) 98 10/24/16 10:12 81 10 85/47 (60) 10/24/16 10:12 81 10 85/47 (60) 10/24/16 10:11 82 8 97 10/24/16 09:46 88 16 91/49 (63) 98 10/24/16 09:46 88 16 91/49 (63) 98 10/24/16 09:41 87 15 98 10/24/16 09:40 89 14 98 10/24/16 09:31 96 16 130/68 (88) 99 10/24/16 09:31 96 16 130/68 (88) 99 10/24/16 09:30 92 19 99 10/24/16 09:16 86 15 134/73 (93) 99 10/24/16 09:16 86 15 134/73 (93) 99 10/24/16 09:11 84 15 98 10/24/16 09:01 85 15 130/68 (88) 99 10/24/16 09:00 84 15 99 10/24/16 08:46 87 23 137/66 (89) 98 10/24/16 08:46 87 23 137/66 (89) 98 10/24/16 08:45 85 12 98 10/24/16 08:31 87 16 141/72 (95) 99 10/24/16 08:31 87 16 141/72 (95) 99 10/24/16 08:30 85 14 99 10/24/16 08:30 85 14 99 10/24/16 08:16 83 14 141/68 (92) 99 10/24/16 08:16 83 14 141/68 (92) 99 10/24/16 08:15 85 16 98 10/24/16 08:01 87 17 127/77 (94) 99 10/24/16 08:01 87 17 127/77 (94) 99 10/24/16 08:00 Mechanical Ventilator 10/24/16 08:00 85 15 99 10/24/16 08:00 85 15 99 Laboratory Results: Last 24 Hours Test 10/24/16 08:25 10/24/16 10:33 10/24/16 21:05 10/25/16 05:39 Urine Color DK YELLOW Urine Appearance CLOUDY Urine pH 5.5 Urine Specific [place] > 1.045 Urine Protein 2+ Urine Glucose (UA) NEG Urine Ketones TRACE Urine Occult Blood 2+ Urine Nitrite NEG Urine Bilirubin NEG Urine Urobilinogen NEG Urine Leukocyte Esterase NEG Urine WBC (Auto) 10-30 /hpf Urine RBC (Auto) 10-30 /hpf Urine Hyaline Casts (Auto) 1-5 /lpf Urine Epithelial Cells (Auto) >30 /lpf Urine Bacteria (Auto) 1+ Urine Renal Epithelial Cells /lpf Urine Pathogenic Casts /lpf Urine Yeast (Auto) White Blood Count 15.76 K/uL 15.66 K/uL Red Blood Count 3.43 M/uL 3.12 M/uL Hemoglobin 9.1 g/dL 8.5 g/dL Hematocrit 28.9 % 26.3 % Mean Corpuscular Volume 84.3 fL 84.3 fL Mean Corpuscular Hemoglobin 26.5 pg 27.2 pg Mean Corpuscular Hemoglobin Concent 31.5 g/dl 32.3 g/dl Platelet Count 508 K/uL 482 K/uL Mean Platelet Volume 9.1 fL 8.9 fL Neutrophils (%) (Auto) 96.0 % 94.3 % Lymphocytes (%) (Auto) 1.3 % 2.2 % Monocytes (%) (Auto) 2.2 % 2.7 % Eosinophils (%) (Auto) 0.0 % 0.3 % Basophils (%) (Auto) 0.0 % 0.1 % Neutrophils # (Auto) 15.13 K/uL 14.76 K/uL Lymphocytes # (Auto) 0.20 K/uL 0.35 K/uL Monocytes # (Auto) 0.35 K/uL 0.43 K/uL Eosinophils # (Auto) 0.00 K/uL 0.05 K/uL Basophils # (Auto) 0.00 K/uL 0.01 K/uL RDW Standard Deviation 41.1 fL 41.3 fL RDW Coefficient of Variation 13.6 % 13.6 % Immature Granulocyte % (Auto) 0.5 % 0.4 % Immature Granulocyte # (Auto) 0.08 K/uL 0.06 K/uL Sodium Level 134 mmol/L 135 mmol/L Potassium Level 4.6 mmol/L 4.0 mmol/L Chloride Level 98 mmol/L 99 mmol/L Carbon Dioxide Level 32 mmol/L 27 mmol/L Anion Gap 4.0 mmol/L 9.0 mmol/L Blood Urea Nitrogen 27 mg/dl 24 mg/dl Creatinine 1.20 mg/dl 0.87 mg/dl Est Creatinine Clear Calc Drug Dose 48.2 ml/min 64.2 ml/min Estimated GFR () 64.4 92.5 Estimated GFR (Non- 55.6 79.8 BUN/Creatinine Ratio 22.8 27.1 Random Glucose 139 mg/dl 84 mg/dl Calcium Level 9.9 mg/dl 9.8 mg/dl Bedside Glucose 109 mg/dl Ovalocytes 1+
--- NOTE | 2016-10-25 08:18 | Surgery Progress Note ---
Surgery Progress Note Date of Service Oct 25, 2016. Subjective Post OP Day: 1 on CPAP Objective Vital Signs: Date Time Temp Pulse Resp B/P (MAP) Pulse Ox O2 Delivery O2 Flow Rate FiO2 10/25/16 08:06 37.0 83 26 136/64 (88) 91 Nasal Cannula 2.0 10/25/16 07:23 83 24 137/95 (109) 96 Nasal Cannula 4.0 10/25/16 06:00 76 12 112/62 (79) 96 CPAP 35 Mechanical Ventilator 10/25/16 05:02 35 10/25/16 04:00 40 10/25/16 04:00 36.9 72 12 117/57 (77) 97 Mechanical Ventilator 40 10/25/16 04:00 97 Mechanical Ventilator 40 10/25/16 02:01 75 12 104/54 (71) 94 10/25/16 01:48 50 10/25/16 00:00 36.8 75 13 114/62 (79) 99 Mechanical Ventilator 50 10/25/16 00:00 99 Mechanical Ventilator 50 10/25/16 00:00 50 10/24/16 22:02 50 10/24/16 22:01 71 14 101/60 (74) 97 10/24/16 21:31 72 14 103/60 (74) 98 10/24/16 21:01 74 14 115/65 (82) 98 10/24/16 20:31 69 13 98/56 (70) 98 10/24/16 20:01 36.9 70 13 106/59 (75) 98 Mechanical Ventilator 50 10/24/16 20:00 50 10/24/16 20:00 98 Mechanical Ventilator 50 10/24/16 19:27 50 10/24/16 18:00 76 13 94/58 (70) 98 Mechanical Ventilator 50 10/24/16 18:00 50 10/24/16 16:00 99 Mechanical Ventilator 50 10/24/16 16:00 50 10/24/16 16:00 36.4 78 12 109/63 (78) 99 Mechanical Ventilator 50 10/24/16 14:44 50 10/24/16 14:01 80 13 120/67 (84) 98 10/24/16 13:40 77 12 98 10/24/16 12:41 70 12 99 10/24/16 12:31 70 12 112/68 (83) 99 10/24/16 12:31 70 12 112/68 (82) 99 10/24/16 12:11 72 12 99 10/24/16 12:01 74 13 136/79 (104) 99 10/24/16 12:01 74 13 136/79 (98) 99 10/24/16 12:00 50 10/24/16 12:00 73 12 98 10/24/16 12:00 98 Mechanical Ventilator 50 10/24/16 11:55 50 10/24/16 11:41 74 14 98 10/24/16 11:31 71 12 134/77 (105) 10/24/16 11:31 71 12 134/77 (96) 10/24/16 11:11 71 13 97 10/24/16 11:01 70 11 93/52 (69) 98 10/24/16 11:00 71 11 98 10/24/16 11:00 71 11 98 10/24/16 10:56 70 10 98 10/24/16 10:41 72 11 99 10/24/16 10:31 73 9 81/48 (59) 98 10/24/16 10:31 73 9 81/48 (59) 98 10/24/16 10:12 81 10 85/47 (60) 10/24/16 10:12 81 10 85/47 (60) 10/24/16 10:11 82 8 97 10/24/16 09:46 88 16 91/49 (63) 98 10/24/16 09:46 88 16 91/49 (63) 98 10/24/16 09:41 87 15 98 10/24/16 09:40 89 14 98 10/24/16 09:31 96 16 130/68 (88) 99 10/24/16 09:31 96 16 130/68 (88) 99 10/24/16 09:30 92 19 99 10/24/16 09:16 86 15 134/73 (93) 99 10/24/16 09:16 86 15 134/73 (93) 99 10/24/16 09:11 84 15 98 10/24/16 09:01 85 15 130/68 (88) 99 10/24/16 09:00 84 15 99 10/24/16 08:46 87 23 137/66 (89) 98 10/24/16 08:46 87 23 137/66 (89) 98 10/24/16 08:45 85 12 98 10/24/16 08:31 87 16 141/72 (95) 99 10/24/16 08:31 87 16 141/72 (95) 99 10/24/16 08:30 85 14 99 10/24/16 08:30 85 14 99 10/24/16 08:16 83 14 141/68 (92) 99 10/24/16 08:16 83 14 141/68 (92) 99 10/24/16 08:15 85 16 98 Physical Exam: MOHAN drainage (70cc #1, 30 cc #2), nasogastric drainage (minimal) , urine output (200 cc past 4 hr) Abdomen: soft, + distended (minimal), + pertinent finding (stoma pink, some air in pouch) Incision(s): clean, dry Laboratory Results: Results Past 24 Hours Test 10/24/16 08:25 10/24/16 10:33 10/24/16 21:05 10/25/16 05:39 Range/Units Urine Color DK YELLOW Urine Appearance CLOUDY CLEAR Urine pH 5.5 4.5-7.5 Urine Specific [place] > 1.045 1.000-1.030 Urine Protein 2+ NEG Urine Glucose (UA) NEG NEG Urine Ketones TRACE NEG Urine Occult Blood 2+ NEG Urine Nitrite NEG NEG Urine Bilirubin NEG NEG Urine Urobilinogen NEG NEG Urine Leukocyte Esterase NEG NEG Urine WBC (Auto) 10-30 0-5 /hpf Urine RBC (Auto) 10-30 0-4 /hpf Urine Hyaline Casts (Auto) 1-5 0-5 /lpf Urine Epithelial Cells (Auto) >30 0-5 /lpf Urine Bacteria (Auto) 1+ NEG Urine Renal Epithelial Cells 0-5 /lpf Urine Pathogenic Casts 0 /lpf Urine Yeast (Auto) NONE PRSENT White Blood Count 15.76 15.66 4.8-10.8 K/uL Red Blood Count 3.43 3.12 4.7-6.1 M/uL Hemoglobin 9.1 8.5 14.0-18.0 g/dL Hematocrit 28.9 26.3 42-52 % Mean Corpuscular Volume 84.3 84.3 80-100 fL Mean Corpuscular Hemoglobin 26.5 27.2 25-34 pg Mean Corpuscular Hemoglobin Concent 31.5 32.3 32-36 g/dl Platelet Count 508 482 130-400 K/uL Mean Platelet Volume 9.1 8.9 7.4-10.4 fL Neutrophils (%) (Auto) 96.0 94.3 % Lymphocytes (%) (Auto) 1.3 2.2 % Monocytes (%) (Auto) 2.2 2.7 % Eosinophils (%) (Auto) 0.0 0.3 % Basophils (%) (Auto) 0.0 0.1 % Neutrophils # (Auto) 15.13 14.76 1.4-6.5 K/uL Lymphocytes # (Auto) 0.20 0.35 1.2-3.4 K/uL Monocytes # (Auto) 0.35 0.43 0.11-0.59 K/uL Eosinophils # (Auto) 0.00 0.05 0-0.5 K/uL Basophils # (Auto) 0.00 0.01 0-0.2 K/uL RDW Standard Deviation 41.1 41.3 36.4-46.3 fL RDW Coefficient of Variation 13.6 13.6 11.5-14.5 % Immature Granulocyte % (Auto) 0.5 0.4 % Immature Granulocyte # (Auto) 0.08 0.06 0.00-0.02 K/uL Sodium Level 134 135 136-145 mmol/L Potassium Level 4.6 4.0 3.5-5.1 mmol/L Chloride Level 98 99 98-107 mmol/L Carbon Dioxide Level 32 27 21-32 mmol/L Anion Gap 4.0 9.0 3-11 mmol/L Blood Urea Nitrogen 27 24 7-18 mg/dl Creatinine 1.20 0.87 0.60-1.40 mg/dl Est Creatinine Clear Calc Drug Dose 48.2 64.2 ml/min Estimated GFR () 64.4 92.5 Estimated GFR (Non- 55.6 79.8 BUN/Creatinine Ratio 22.8 27.1 10-20 Random Glucose 139 84 70-99 mg/dl Calcium Level 9.9 9.8 8.5-10.1 mg/dl Bedside Glucose 109 70-99 mg/dl Ovalocytes 1+ Microbiology Results 10/24/16 Urine Culture, Received Pending Assessment & Plan s/p ex lap, sigmoid rxsn/colostomy for perforated diverticulitis planning to extubate this AM UOP improving, creatine down to 0.8 WBC remains 15,000, afebrile post op anemia, H&H stable continue IV Zosyn, Lovenox, Pepcid cont dulce KNIGHT
--- NOTE | 2016-10-25 08:27 | Clinical Documentation Query ---
KAMI Graves : CLINICAL DOCUMENTATION QUERY Patient is a 81 year old male presenting with perforated bowel who underwent resection, colostomy creation, and abdominal washout. He remained intubated postoperatively and is currently being weaned from the ventilator. As appropriate, consider documentation as suggested below to capture the severity of illness and risk of mortality associated with such invasive management. In your clinical opinion is this patient being managed for: ( ) Acute pulmonary insufficiency following surgery ( ) Other explanation of clinical findings (Please Explain) ( ) Unable to determine (Please Define) ( ) Need to Discuss ( ) Not Agree The medical record reflects the following clinical findings, treatment, and risk factors. Clinical Indicators: As above Treatment: Remains mechanically ventilated > 24 hours postoperatively Risk Factors: Age, likely COPD, bowel surgery Please clarify and document your clinical opinion in the progress notes and discharge summary. Terms such as "probable", "suspected", "likely", "questionable", "possible", or "still to be ruled out" are acceptable. IF IN AGREEMENT, YOU MUST DOCUMENT ABOVE DIAGNOSTIC STATEMENT IN DAILY PROGRESS NOTES AND DISCHARGE SUMMARY. This document is not part of the patient's record. Thank You, Eitan Raman, RN [phone]
[2016-10-25] MEDS: FAMOTIDINE IV INJ 20 MG in DEXTROSE 5% 100ML 100 ML IV SCH ×2 (10:02→20:45)
[2016-10-25] MEDS: ENOXAPARIN 40 MG/0.4 ML SYR SQ SCH (10:03)
[2016-10-25] MEDS ORDERED: IMPACT LIQ 1000 ML BAG NG PRN (10:45)
[2016-10-25] MEDS: ACETAMINOPHEN IV 100 ML IV PRN (13:20)
[2016-10-25] MEDS: FENTANYL CITRATE INJ 50 MCG/1 ML 2 ML VIAL IV PRN (20:45)
[2016-10-26] VITALS (10 sets, daily range): BP systolic 119–177; BP diastolic 68–84; PULSE 77–92; TEMP 36.5–37.1; O2SAT 85–100
[2016-10-26] MEDS: FENTANYL CITRATE INJ 50 MCG/1 ML 2 ML VIAL IV PRN (00:44)
[2016-10-26] MEDS: LACTATED RINGER'S 1000ML 1,000 ML IV SCH ×3 (00:51→16:14)
[2016-10-26] MEDS: PIPERACILL/TAZOBAC IV 3.375 GM in DEXTROSE 5% 100ML IV SCH ×3 (06:07→21:36)
--- NOTE | 2016-10-26 07:13 | Surgery Progress Note ---
Surgery Progress Note Date of Service Oct 26, 2016. Subjective Post OP Day: 2 pt doing well per ICU attending. pt awake by sedate. denies pain. no acute changes clinically. Objective Vital Signs: Date Time Temp Pulse Resp B/P (MAP) Pulse Ox O2 Delivery O2 Flow Rate FiO2 10/26/16 06:00 36.8 92 23 161/84 (109) 96 Nasal Cannula 4.0 Humidified Oxygen 10/26/16 04:00 100 Oxymask 10.0 10/26/16 04:00 37.1 89 27 150/74 (99) 100 Oxymask 10.0 10/26/16 02:00 77 18 124/70 (88) 100 Oxymask 10.0 10/26/16 00:01 37.0 81 20 136/76 (96) 100 Oxymask 10.0 10/25/16 23:59 100 Oxymask 10.0 10/25/16 21:00 83 24 127/61 (83) 98 Oxymask 10.0 10/25/16 20:00 37.0 80 20 138/91 (107) 94 Nasal Cannula 2.0 10/25/16 20:00 94 Nasal Cannula 2.0 10/25/16 18:01 82 24 131/67 (88) 94 10/25/16 17:01 80 19 135/71 (92) 96 10/25/16 16:01 36.9 70 18 99/54 (69) 96 10/25/16 16:00 Nasal Cannula 2.0 10/25/16 15:01 83 24 115/61 (79) 96 10/25/16 14:02 83 23 114/76 (89) 96 10/25/16 13:01 89 21 142/71 (94) 92 10/25/16 12:01 36.9 77 25 126/58 (80) 95 10/25/16 12:00 Nasal Cannula 2.0 10/25/16 11:01 77 26 120/60 (80) 94 10/25/16 10:01 83 22 118/59 (78) 95 Nasal Cannula 2.0 10/25/16 09:01 83 25 131/66 (87) 94 Nasal Cannula 2.0 10/25/16 08:06 37.0 83 26 136/64 (88) 91 Nasal Cannula 2.0 10/25/16 08:00 Nasal Cannula 2.0 10/25/16 08:00 Nasal Cannula 10/25/16 07:23 83 24 137/95 (109) 96 Nasal Cannula 4.0 Physical Exam: MOHAN drainage (serous) General Appearance: no apparent distress Head: normocephalic, atraumatic Abdomen: non distended, soft Incision(s): clean, dry, intact Laboratory Results: Results Past 24 Hours Test 10/25/16 11:35 10/25/16 17:45 10/26/16 06:01 Range/Units Bedside Glucose 103 92 70-99 mg/dl Assessment & Plan POD#2 doing as well as could be expected ok to transfer to surgical floor will pull ngt and start oral intake will need PT/OT and likely rehab eventually am labs pending
--- NOTE | 2016-10-26 07:36 | Critical Care Progress Note ---
Critical Care Progress Note Date of Service Oct 26, 2016. ICU Day ICU Day Number: [address] Rojas Subjective Comfortable. Hemodynamically stable. Only change I see is continue elevation of the WBCs. Clinically he is improved. Spoke with surgery regarding care. Objective Gen--calm and comfortable HEENT--no focal target-- Respiratory--exchange is good Cardio--volume status appropriate GI--functional --cardona to gravity Musculo--rate and volume ok Neuro--no focal changes. Derm--intact--wound ok Psych--calm Current SOFA Score SOFA Score Response (Comments) Value PaO2/FiO2 (mmHg) < 300 2 SaO2 / FIO2 142 - 220 2 Platelets (x10) > 150 0 Bilirubin (mg/dL) < 1.2 0 Renetta Coma Score 10 - 12 2 Level of Hypotension No Hypotension 0 Creatinine (mg/dL) 1.2 - 1.9 1 Total 7 Assessment & Plan Bowel Obstruction and surgical intervention 1. Cardio--volume status and B/P good 2. Pulmonary--off the vent and doing ok 3. GI--will review with surgery 4. Musculo--no new targets 5. Neuro--nonfocal 6. F/E/N-Renal---output has been reasonable. Consults & Procedures Consultants: see orders Procedures: none Data Medications: Current Inpatient Medications Medications (Trade) Dose Ordered Sig/Andrzej Route Start Time Stop Time Status Last Admin Dose Admin Ioversol (Optiray 320) 125 ml UD PRN IV 10/24/16 01:30 10/28/16 01:29 Piperacillin Sod/ Tazobactam Sod 3.375 gm/Dextrose 115 ml @ 28.75 mls/ hr Q8H IV 10/24/16 14:00 11/03/16 13:59 10/26/16 06:07 28.75 MLS/HR Piperacillin Sod/ Tazobactam Sod (Consult) 1 ea UD PRN N/A 10/24/16 07:30 11/23/16 07:29 Morphine Sulfate (MoRPHine SULFATE INJ) 2 mg Q3H PRN IV 10/24/16 07:30 11/07/16 07:29 10/25/16 00:40 2 MG Morphine Sulfate (MoRPHine SULFATE INJ) 4 mg Q3H PRN IV 10/24/16 07:30 11/07/16 07:29 Ondansetron HCl (Zofran Inj) 4 mg Q6H PRN IV 10/24/16 07:30 11/23/16 07:29 Acetaminophen 100 ml @ 400 mls/hr Q8H PRN IV 10/24/16 07:30 11/23/16 07:29 10/25/16 13:20 400 MLS/HR Enoxaparin Sodium (Lovenox Inj) 40 mg QAM SQ 10/24/16 14:00 11/23/16 13:59 10/25/16 10:03 40 MG Lorazepam (Ativan Inj) 1 mg Q30M PRN IV 10/24/16 07:45 11/23/16 07:44 10/25/16 01:01 1 MG Fentanyl Citrate (Fentanyl Inj) 25 mcg Q30M PRN IV 10/24/16 07:45 11/07/16 07:44 10/26/16 00:44 25 MCG Lactated Ringer's 1,000 ml @ 125 mls/hr Q8H IV 10/24/16 08:30 11/23/16 08:29 10/26/16 00:51 125 MLS/HR Famotidine 20 mg/ Dextrose 102 ml @ 204 mls/hr Q12@0900,2100 IV 10/24/16 09:00 11/23/16 08:59 10/25/16 20:45 204 MLS/HR Heparin Sodium (Porcine) (Heparin 10 Unit/ ml 5 ml Flush) 5 ml PRN PRN FLUSH 10/24/16 12:45 11/23/16 12:44 Enteral Nutritional Formula (Impact 1.0 Jose) 1,000 ml 10ML/HR PRN NG 10/25/16 10:45 11/24/16 10:44 10/25/16 13:21 1,000 ML Vital Signs: Date Time Temp Pulse Resp B/P (MAP) Pulse Ox O2 Delivery O2 Flow Rate FiO2 10/26/16 06:00 36.8 92 23 161/84 (109) 96 Nasal Cannula 4.0 Humidified Oxygen 10/26/16 04:00 100 Oxymask 10.0 10/26/16 04:00 37.1 89 27 150/74 (99) 100 Oxymask 10.0 10/26/16 02:00 77 18 124/70 (88) 100 Oxymask 10.0 10/26/16 00:01 37.0 81 20 136/76 (96) 100 Oxymask 10.0 10/25/16 23:59 100 Oxymask 10.0 10/25/16 21:00 83 24 127/61 (83) 98 Oxymask 10.0 10/25/16 20:00 37.0 80 20 138/91 (107) 94 Nasal Cannula 2.0 10/25/16 20:00 94 Nasal Cannula 2.0 10/25/16 18:01 82 24 131/67 (88) 94 10/25/16 17:01 80 19 135/71 (92) 96 10/25/16 16:01 36.9 70 18 99/54 (69) 96 10/25/16 16:00 Nasal Cannula 2.0 10/25/16 15:01 83 24 115/61 (79) 96 10/25/16 14:02 83 23 114/76 (89) 96 10/25/16 13:01 89 21 142/71 (94) 92 10/25/16 12:01 36.9 77 25 126/58 (80) 95 10/25/16 12:00 Nasal Cannula 2.0 10/25/16 11:01 77 26 120/60 (80) 94 10/25/16 10:01 83 22 118/59 (78) 95 Nasal Cannula 2.0 10/25/16 09:01 83 25 131/66 (87) 94 Nasal Cannula 2.0 10/25/16 08:06 37.0 83 26 136/64 (88) 91 Nasal Cannula 2.0 10/25/16 08:00 Nasal Cannula 2.0 10/25/16 08:00 Nasal Cannula Laboratory Results: Last 24 Hours Test 10/25/16 11:35 10/25/16 17:45 10/26/16 06:01 Bedside Glucose 103 mg/dl 92 mg/dl
[2016-10-26 08:40] LABS: HEMATOCRIT 31.4 % (42-52); MEAN CELL VOLUME 85.3 fL (80-100); MEAN CORPUSCULAR HEMOGLOBIN 27.2 pg (25-34); MEAN CORPUSCULAR HGB CONC 31.8 g/dl (32-36); MEAN PLATELET VOLUME 9.1 fL (7.4-10.4); PLATELET COUNT 498 K/uL (130-400); RED BLOOD COUNT 3.68 M/uL (4.7-6.1); WHITE BLOOD COUNT 27.78 K/uL (4.8-10.8)
[2016-10-26 08:51] LABS: BUN/CREATININE RATIO 22.6 (10-20); CALCIUM 10.9 mg/dl (8.5-10.1); CREATININE 0.73 mg/dl (0.60-1.40); POTASSIUM 3.6 mmol/L (3.5-5.1)
[2016-10-26 08:56] LABS: BASO % 0.1 %; BASO ABS # 0.02 K/uL (0-0.2); COMPLETE YES; EOS % 0.1 %; IG% 0.5 %; LYMPH % 0.9 %; LYMPH ABS # 0.24 K/uL (1.2-3.4); MONO % 1.3 %; NEUT % 97.1 %
[2016-10-26] MEDS: ACETAMINOPHEN IV 100 ML IV PRN (09:16)
[2016-10-26] MEDS: ENOXAPARIN 40 MG/0.4 ML SYR SQ SCH (09:45)
[2016-10-26] MEDS ORDERED: METOPROLOL TARTRATE 1 MG/ML VIAL IV. SCH (13:00)
--- NOTE | 2016-10-26 13:06 | Medical Consult ---
Consultation Date of Consultation: Oct 26, 2016. Attending Physician: Fabian Silver D.O. History of Present Illness 81 y/o M Hx HTN, BPH, mild cognitive impairment - presented to the ER on 10/24 with persistent severe abdominal pain and proceeded to the OR emergently due to a bowel perforation. He was intubated and sent to the ICU post-op. He has since recovered enough to transfer to the floor and the medical service is asked to see him for management pending D/C. Pt is lethargic - denies excessive pain or SOB at the time of medical evaluation. Per surgical report, pt is post exploratory laparotomy, sigmoid colectomy, end colostomy, cecostomy with decompression, and abdominal washout. Results of initial CT below. 1. Advanced emphysema. 2. There is no aneurysm or dissection seen involving the thoracic aorta. 3. No airspace consolidation or pleural effusion is identified. 4. Wall thickening and hyperemia is suggested involving the distal esophagus. 5. 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 6. The right colon is markedly abnormal. The cecum is distended and fluid- filled. There is pneumatosis intestinalis involving the cecum, and the appearance is highly concerning for ischemic colitis. 7. There is underdistention versus abnormal wall thickening identified in the sigmoid colon. Adjacent free air and fluid are identified. A mass lesion with perforation is not excluded. 8. There are numerous foci of intraperitoneal free air throughout the abdomen and pelvis consistent with visceral perforation. A small volume of abdominopelvic ascites is identified. This is most likely related to either the sigmoid colon or the right colon. Surgical consultation is advised. 9. The prostate gland is enlarged and heterogeneous, and there is evidence of chronic bladder obstruction. A 1.4 cm low-attenuation nodule is suggested in the right lobe of the prostate. Follow-up with serum PSA levels is recommended. Past Medical/Surgical History 1) HTN 2) BPH 3) Mild cognitive impairment Family History No pertinent family history Social History Smoking Status: Former Smoker Marital Status: Allergies Coded Allergies: No Known Allergies (Unverified , 10/24/16) Current Inpatient Medications Current Inpatient Medications Medications (Trade) Dose Ordered Sig/Andrzej Route Start Time Stop Time Status Last Admin Dose Admin Ioversol (Optiray 320) 125 ml UD PRN IV 10/24/16 01:30 10/28/16 01:29 Piperacillin Sod/ Tazobactam Sod 3.375 gm/Dextrose 115 ml @ 28.75 mls/ hr Q8H IV 10/24/16 14:00 11/03/16 13:59 10/26/16 06:07 28.75 MLS/HR Piperacillin Sod/ Tazobactam Sod (Consult) 1 ea UD PRN N/A 10/24/16 07:30 11/23/16 07:29 Morphine Sulfate (MoRPHine SULFATE INJ) 2 mg Q3H PRN IV 10/24/16 07:30 11/07/16 07:29 10/25/16 00:40 2 MG Morphine Sulfate (MoRPHine SULFATE INJ) 4 mg Q3H PRN IV 10/24/16 07:30 11/07/16 07:29 Ondansetron HCl (Zofran Inj) 4 mg Q6H PRN IV 10/24/16 07:30 11/23/16 07:29 Acetaminophen 100 ml @ 400 mls/hr Q8H PRN IV 10/24/16 07:30 11/23/16 07:29 10/26/16 09:16 400 MLS/HR Enoxaparin Sodium (Lovenox Inj) 40 mg QAM SQ 10/24/16 14:00 11/23/16 13:59 10/26/16 09:45 40 MG Lorazepam (Ativan Inj) 1 mg Q30M PRN IV 10/24/16 07:45 11/23/16 07:44 10/25/16 01:01 1 MG Fentanyl Citrate (Fentanyl Inj) 25 mcg Q30M PRN IV 10/24/16 07:45 11/07/16 07:44 10/26/16 00:44 25 MCG Lactated Ringer's 1,000 ml @ 125 mls/hr Q8H IV 10/24/16 08:30 11/23/16 08:29 10/26/16 00:51 125 MLS/HR Heparin Sodium (Porcine) (Heparin 10 Unit/ ml 5 ml Flush) 5 ml PRN PRN FLUSH 10/24/16 12:45 11/23/16 12:44 Enteral Nutritional Formula (Impact 1.0 Jose) 1,000 ml 10ML/HR PRN NG 10/25/16 10:45 11/24/16 10:44 10/25/16 13:21 1,000 ML Review of Systems Constitutional: + weakness, + fatigue Eyes: No worsening of vision, No eye pain ENT: No hearing loss, No nasal symptoms Respiratory: No cough, No sputum, No wheezing Cardiovascular: No chest pain, No orthopnea, No PND Abdomen: + pain (at surgical site - controlled), No nausea (tolerating full liquid diet), No vomiting Musculoskeletal: No joint pain Genitourinary - Male: + problem reported (Harrison in place), No hematuria Neurologic: + weakness, No memory loss, No paralysis Endocrine: + fatigue Hematologic / Lymphatic: No abnormal bleeding/bruising Integumentary: No rash Allergic / Immunologic: No environmental allergies Physical Exam Date Time Temp Pulse Resp B/P (MAP) Pulse Ox O2 Delivery O2 Flow Rate FiO2 10/26/16 11:33 92 Nasal Cannula 2.0 10/26/16 11:33 85 Room Air 10/26/16 10:45 36.5 91 16 119/68 (85) 93 Room Air 10/26/16 10:45 Room Air 93.0 10/26/16 09:29 36.8 92 22 98 2.0 10/26/16 08:00 98 Nasal Cannula 2.0 Humidified Oxygen 10/26/16 08:00 36.8 92 22 136/78 (97) 98 Nasal Cannula 2.0 Humidified Oxygen 10/26/16 06:00 36.8 92 23 161/84 (109) 96 Nasal Cannula 4.0 Humidified Oxygen 10/26/16 04:00 100 Oxymask 10.0 10/26/16 04:00 37.1 89 27 150/74 (99) 100 Oxymask 10.0 10/26/16 02:00 77 18 124/70 (88) 100 Oxymask 10.0 10/26/16 00:01 37.0 81 20 136/76 (96) 100 Oxymask 10.0 10/25/16 23:59 100 Oxymask 10.0 10/25/16 21:00 83 24 127/61 (83) 98 Oxymask 10.0 10/25/16 20:00 37.0 80 20 138/91 (107) 94 Nasal Cannula 2.0 10/25/16 20:00 94 Nasal Cannula 2.0 10/25/16 18:01 82 24 131/67 (88) 94 10/25/16 17:01 80 19 135/71 (92) 96 10/25/16 16:01 36.9 70 18 99/54 (69) 96 10/25/16 16:00 Nasal Cannula 2.0 10/25/16 15:01 83 24 115/61 (79) 96 10/25/16 14:02 83 23 114/76 (89) 96 10/25/16 13:01 89 21 142/71 (94) 92 Lethargic elderly male - can answer questions appropriately - no distress Head: normocephalic, atraumatic Eyes: normal inspection, EOMI ENT: normal ENT inspection, pharynx normal Neck: supple, no JVD Respiratory/Chest: chest non-tender, lungs clear, normal breath sounds Cardiovascular: regular rate, rhythm, no edema, no gallop Abdomen/GI: + pertinent finding (palpation avoided - no evidence of infection at op site) Back: normal inspection, no CVA tenderness, no muscle spasm, normal range of motion Extremities/Musculoskelatal: normal inspection, no calf tenderness, normal capillary refill, no pedal edema, normal range of motion Neurologic/Psych: physiognomist II-XII nml as tested, no motor/sensory deficits, alert, + pertinent finding (AAO x 2 ) Skin: normal color, warm/dry, no rash Laboratory Results Last 24 Hours Test 10/25/16 17:45 10/26/16 08:24 Bedside Glucose 92 mg/dl White Blood Count 27.78 K/uL Red Blood Count 3.68 M/uL Hemoglobin 10.0 g/dL Hematocrit 31.4 % Mean Corpuscular Volume 85.3 fL Mean Corpuscular Hemoglobin 27.2 pg Mean Corpuscular Hemoglobin Concent 31.8 g/dl Platelet Count 498 K/uL Mean Platelet Volume 9.1 fL Neutrophils (%) (Auto) 97.1 % Lymphocytes (%) (Auto) 0.9 % Monocytes (%) (Auto) 1.3 % Eosinophils (%) (Auto) 0.1 % Basophils (%) (Auto) 0.1 % Neutrophils # (Auto) 26.96 K/uL Lymphocytes # (Auto) 0.24 K/uL Monocytes # (Auto) 0.37 K/uL Eosinophils # (Auto) 0.04 K/uL Basophils # (Auto) 0.02 K/uL RDW Standard Deviation 42.7 fL RDW Coefficient of Variation 13.6 % Immature Granulocyte % (Auto) 0.5 % Immature Granulocyte # (Auto) 0.15 K/uL Sodium Level 136 mmol/L Potassium Level 3.6 mmol/L Chloride Level 99 mmol/L Carbon Dioxide Level 30 mmol/L Anion Gap 7.0 mmol/L Blood Urea Nitrogen 17 mg/dl Creatinine 0.73 mg/dl Est Creatinine Clear Calc Drug Dose 76.5 ml/min Estimated GFR () 99.4 Estimated GFR (Non- 85.8 BUN/Creatinine Ratio 22.6 Random Glucose 89 mg/dl Calcium Level 10.9 mg/dl Assessment & Plan 81 y/o M Hx HTN, BPH, mild cognitive impairment - presented to the ER on 10/24 with persistent severe abdominal pain and proceeded to the OR emergently due to a bowel perforation. He was intubated and sent to the ICU post-op. He has since recovered enough to transfer to the floor and the medical service is asked to see him for management pending D/C. Per surgical report, pt is post exploratory laparotomy, sigmoid colectomy, end colostomy, cecostomy with decompression, and abdominal washout. 1) Bowel perforation - post laparotomy, colectomy/colostomy 10/24. Pt has recovered well and transferred to the surgical floor from the ICU. PT/OT recommended - will likely need rehab due to age and deconditioning. Receiving Zosyn. Morphine PRN for pain. IVF - lactated ringers per surgery. Decision to start PO and colostomy management per surgery. 2) HTN - can continue prescribed meds if tolerating PO - should start B humble at earliest time - can provide 12.5 BID of reg metoprolol 3) BPH - Restart Finasteride and Flomax prior to Harrison removal. 4) Lovenox provided for DVT prophylaxis. Total time for this consult including review of labs, meds, surgical notes - discussion with pt - 37 min - med to follow daily
[2016-10-26] MEDS: MoRPHine SULFATE 2 MG/ML CARP IV PRN (16:10)
[2016-10-26] MEDS: LORAZEPAM INJ 1 MG in SYRINGE 0.5 ML IV PRN (20:56)
[2016-10-27] VITALS (7 sets, daily range): BP systolic 133–174; BP diastolic 65–89; PULSE 78–98; TEMP 36.4–37.3; O2SAT 93–98
[2016-10-27] MEDS: LACTATED RINGER'S 1000ML 1,000 ML IV SCH ×3 (00:44→22:41)
[2016-10-27 05:29] LABS: HEMATOCRIT 31.5 % (42-52); MEAN CELL VOLUME 85.1 fL (80-100); MEAN CORPUSCULAR HEMOGLOBIN 26.8 pg (25-34); MEAN CORPUSCULAR HGB CONC 31.4 g/dl (32-36); MEAN PLATELET VOLUME 9.2 fL (7.4-10.4); PLATELET COUNT 512 K/uL (130-400); WHITE BLOOD COUNT 21.22 K/uL (4.8-10.8)
[2016-10-27] MEDS: PIPERACILL/TAZOBAC IV 3.375 GM in DEXTROSE 5% 100ML IV SCH ×3 (05:44→21:42)
[2016-10-27 05:53] LABS: COMPLETE YES; ECHINOCYTES 1+; IG% 0.3 %; LYMPH % 1.5 %; LYMPH ABS # 0.32 K/uL (1.2-3.4); MONO % 2.7 %; NEUT % 94.5 %
[2016-10-27 05:58] LABS: BUN/CREATININE RATIO 18.6 (10-20); CALCIUM 10.5 mg/dl (8.5-10.1); CREATININE 0.69 mg/dl (0.60-1.40); POTASSIUM 3.5 mmol/L (3.5-5.1)
--- NOTE | 2016-10-27 06:50 | Surgery Progress Note ---
Surgery Progress Note Date of Service Oct 27, 2016. Subjective Post OP Day: 3 pt mildly confused...has baseline dementia. ? baseline. denies pain. Objective Vital Signs: Date Time Temp Pulse Resp B/P (MAP) Pulse Ox O2 Delivery O2 Flow Rate FiO2 10/26/16 23:24 36.9 92 16 177/78 (111) 92 Nasal Cannula 2.0 10/26/16 23:15 Nasal Cannula 2.0 10/26/16 16:49 Nasal Cannula 2.0 10/26/16 15:18 36.6 83 18 137/68 (91) 98 Nasal Cannula 2.0 10/26/16 11:33 92 Nasal Cannula 2.0 10/26/16 11:33 85 Room Air 10/26/16 10:45 36.5 91 16 119/68 (85) 93 Room Air 10/26/16 10:45 Room Air 93.0 10/26/16 09:29 36.8 92 22 98 2.0 10/26/16 08:00 98 Nasal Cannula 2.0 Humidified Oxygen 10/26/16 08:00 36.8 92 22 136/78 (97) 98 Nasal Cannula 2.0 Humidified Oxygen Physical Exam: MOHAN drainage (serous) General Appearance: no apparent distress Abdomen: non tender, non distended, soft, + pertinent finding (stoma pink/ functioning.) Incision(s): clean, dry, intact, no erythema Laboratory Results: Results Past 24 Hours Test 10/26/16 08:24 10/27/16 05:09 Range/Units White Blood Count 27.78 21.22 4.8-10.8 K/uL Red Blood Count 3.68 3.70 4.7-6.1 M/uL Hemoglobin 10.0 9.9 14.0-18.0 g/dL Hematocrit 31.4 31.5 42-52 % Mean Corpuscular Volume 85.3 85.1 80-100 fL Mean Corpuscular Hemoglobin 27.2 26.8 25-34 pg Mean Corpuscular Hemoglobin Concent 31.8 31.4 32-36 g/dl Platelet Count 498 512 130-400 K/uL Mean Platelet Volume 9.1 9.2 7.4-10.4 fL Neutrophils (%) (Auto) 97.1 94.5 % Lymphocytes (%) (Auto) 0.9 1.5 % Monocytes (%) (Auto) 1.3 2.7 % Eosinophils (%) (Auto) 0.1 1.0 % Basophils (%) (Auto) 0.1 0.0 % Neutrophils # (Auto) 26.96 20.05 1.4-6.5 K/uL Lymphocytes # (Auto) 0.24 0.32 1.2-3.4 K/uL Monocytes # (Auto) 0.37 0.57 0.11-0.59 K/uL Eosinophils # (Auto) 0.04 0.21 0-0.5 K/uL Basophils # (Auto) 0.02 0.00 0-0.2 K/uL RDW Standard Deviation 42.7 42.3 36.4-46.3 fL RDW Coefficient of Variation 13.6 13.5 11.5-14.5 % Immature Granulocyte % (Auto) 0.5 0.3 % Immature Granulocyte # (Auto) 0.15 0.07 0.00-0.02 K/uL Sodium Level 136 138 136-145 mmol/L Potassium Level 3.6 3.5 3.5-5.1 mmol/L Chloride Level 99 98 98-107 mmol/L Carbon Dioxide Level 30 34 21-32 mmol/L Anion Gap 7.0 6.0 3-11 mmol/L Blood Urea Nitrogen 17 13 7-18 mg/dl Creatinine 0.73 0.69 0.60-1.40 mg/dl Est Creatinine Clear Calc Drug Dose 76.5 80.9 ml/min Estimated GFR () 99.4 101.8 Estimated GFR (Non- 85.8 87.8 BUN/Creatinine Ratio 22.6 18.6 10-20 Random Glucose 89 75 70-99 mg/dl Calcium Level 10.9 10.5 8.5-10.1 mg/dl Echinocytes 1+ Microbiology Results 10/26/16 Blood Culture, Received Pending 10/26/16 Blood Culture, Received Pending 10/26/16 C.difficile Toxin B Gene (PCR) - Final, Complete No C. difficile toxin B gene detected 10/26/16 Urine Culture, Received Pending Assessment & Plan 10/27/16 doing reasonably ok stoma functioning wbc still elevated but decreasing. c.diff negative. blood cx pending path- no malignancy/diverticulitis will need agressive pt/ot/rehab can advance diet as tolerated 10/26/16 POD#2 doing as well as could be expected ok to transfer to surgical floor will pull ngt and start oral intake will need PT/OT and likely rehab eventually am labs pending POD#2 doing as well as could be expected ok to transfer to surgical floor will pull ngt and start oral intake will need PT/OT and likely rehab eventually am labs pending
[2016-10-27] MEDS: TAMSULOSIN HCL 0.4 MG CAP PO SCH (08:11)
[2016-10-27] MEDS: METOPROLOL TARTRATE 25 MG TAB PO SCH ×2 (08:11→21:00)
--- NOTE | 2016-10-27 08:11 | Progress Note ---
Subjective Date of Service: Oct 27, 2016. Subjective pt is lethargic and at bedside states he is typically highly functioning. he has some abdominal pain Review of Systems Constitutional: + weakness, + fatigue, No fever, No chills Respiratory: No cough, No shortness of breath, No dyspnea on exertion Cardiac: No chest pain, No PND, No edema Abdomen: + pain, + constipation, No nausea, No vomiting, No diarrhea Musculoskeletal: No joint pain, No muscle pain Psychiatric: No depression symptoms, No anhedonism Objective Vital Signs Date Time Temp Pulse Resp B/P (MAP) Pulse Ox O2 Delivery O2 Flow Rate FiO2 10/27/16 08:00 37.3 98 16 168/88 (114) 96 Nasal Cannula 2.0 10/27/16 07:44 36.8 97 20 174/89 (117) 94 Nasal Cannula 2.0 10/27/16 07:35 Nasal Cannula 2.0 10/26/16 23:24 36.9 92 16 177/78 (111) 92 Nasal Cannula 2.0 10/26/16 23:15 Nasal Cannula 2.0 10/26/16 16:49 Nasal Cannula 2.0 10/26/16 15:18 36.6 83 18 137/68 (91) 98 Nasal Cannula 2.0 10/26/16 11:33 92 Nasal Cannula 2.0 10/26/16 11:33 85 Room Air 10/26/16 10:45 36.5 91 16 119/68 (85) 93 Room Air 10/26/16 10:45 Room Air 93.0 10/26/16 09:29 36.8 92 22 98 2.0 Physical Exam General Appearance: WD/WN, + moderate distress Neck: supple, no JVD Respiratory/Chest: chest non-tender, lungs clear Cardiovascular: regular rate, rhythm, no murmur Abdomen: soft, + abnormal bowel sounds, + distended Extremities: no pedal edema, no calf tenderness Laboratory Results Last 24 Hours Test 10/26/16 08:24 10/27/16 05:09 White Blood Count 27.78 K/uL 21.22 K/uL Red Blood Count 3.68 M/uL 3.70 M/uL Hemoglobin 10.0 g/dL 9.9 g/dL Hematocrit 31.4 % 31.5 % Mean Corpuscular Volume 85.3 fL 85.1 fL Mean Corpuscular Hemoglobin 27.2 pg 26.8 pg Mean Corpuscular Hemoglobin Concent 31.8 g/dl 31.4 g/dl Platelet Count 498 K/uL 512 K/uL Mean Platelet Volume 9.1 fL 9.2 fL Neutrophils (%) (Auto) 97.1 % 94.5 % Lymphocytes (%) (Auto) 0.9 % 1.5 % Monocytes (%) (Auto) 1.3 % 2.7 % Eosinophils (%) (Auto) 0.1 % 1.0 % Basophils (%) (Auto) 0.1 % 0.0 % Neutrophils # (Auto) 26.96 K/uL 20.05 K/uL Lymphocytes # (Auto) 0.24 K/uL 0.32 K/uL Monocytes # (Auto) 0.37 K/uL 0.57 K/uL Eosinophils # (Auto) 0.04 K/uL 0.21 K/uL Basophils # (Auto) 0.02 K/uL 0.00 K/uL RDW Standard Deviation 42.7 fL 42.3 fL RDW Coefficient of Variation 13.6 % 13.5 % Immature Granulocyte % (Auto) 0.5 % 0.3 % Immature Granulocyte # (Auto) 0.15 K/uL 0.07 K/uL Sodium Level 136 mmol/L 138 mmol/L Potassium Level 3.6 mmol/L 3.5 mmol/L Chloride Level 99 mmol/L 98 mmol/L Carbon Dioxide Level 30 mmol/L 34 mmol/L Anion Gap 7.0 mmol/L 6.0 mmol/L Blood Urea Nitrogen 17 mg/dl 13 mg/dl Creatinine 0.73 mg/dl 0.69 mg/dl Est Creatinine Clear Calc Drug Dose 76.5 ml/min 80.9 ml/min Estimated GFR () 99.4 101.8 Estimated GFR (Non- 85.8 87.8 BUN/Creatinine Ratio 22.6 18.6 Random Glucose 89 mg/dl 75 mg/dl Calcium Level 10.9 mg/dl 10.5 mg/dl Echinocytes 1+ Assessment and Plan 81 y/o M presented with bowel perforation taken to OR 10/24, Hx HTN, BPH, mild cognitive impairment Per surgical report, pt is post exploratory laparotomy, sigmoid colectomy, end colostomy, cecostomy with decompression, and abdominal washout. pathology is negative for tumor Bowel perforation - post laparotomy, colectomy/colostomy 10/24. Zosyn. Morphine PRN for pain. IVF - per surgery. Decision to start PO and colostomy management per surgery. HTN - metoprolol, systolic bp is high will increase dose if needed but has not received any med yet BPH - Finasteride and Flomax prior to Harrison removal. Lovenox provided for DVT prophylaxis.
[2016-10-27] MEDS: FINASTERIDE 5 MG TAB PO SCH (08:12)
[2016-10-27] MEDS: ENOXAPARIN 40 MG/0.4 ML SYR SQ SCH (08:12)
[2016-10-27] MEDS: LORAZEPAM INJ 1 MG in SYRINGE 0.5 ML IV PRN ×2 (16:10→19:26)
[2016-10-27] MEDS ORDERED: KETOROLAC TROMETHAMINE 15 MG/ML VIAL IV PRN (17:15)
[2016-10-27] MEDS ORDERED: ACETAMINOPHEN IV 650 MG in EMPTY BAG 0 ML IV PRN (17:15)
[2016-10-27] MEDS: ACETAMINOPHEN IV 100 ML IV PRN (19:52)
[2016-10-28] MEDS: PIPERACILL/TAZOBAC IV 3.375 GM in DEXTROSE 5% 100ML IV SCH ×3 (05:45→21:36)
[2016-10-28 07:31] VITALS: BP 154/74; PULSE 92; TEMP 36.7; O2SAT 98
--- NOTE | 2016-10-28 08:29 | Surgery Progress Note ---
Surgery Progress Note Date of Service Oct 28, 2016. Subjective Post OP Day: 4 + feeling well F/U post exploratory laparotomy, sigmoid colectomy, end colostomy, cecostomy with decompression, and abdominal washout. pt is doing better, per nurse, pt denies abdominal pain, he tolerated full liquid diet, pt denies nausea, no vomiting, Objective Vital Signs: Date Time Temp Pulse Resp B/P (MAP) Pulse Ox O2 Delivery O2 Flow Rate FiO2 10/28/16 07:31 36.7 92 18 154/74 (100) 98 Room Air 10/27/16 23:35 36.4 83 15 149/65 (93) 95 Nasal Cannula 2.0 10/27/16 23:30 Nasal Cannula 2.0 10/27/16 16:46 Nasal Cannula 2.0 10/27/16 15:12 36.8 90 18 133/78 (96) 98 Nasal Cannula 2.0 10/27/16 12:10 36.7 88 16 147/87 (107) 97 Nasal Cannula 2.0 10/27/16 09:47 97 Nasal Cannula 2.0 General Appearance: no apparent distress Neck: supple, no JVD Respiratory/Chest: chest non-tender, lungs clear Cardiovascular: regular rate, rhythm, no edema, no JVD Abdomen: normal bowel sounds, non tender, non distended, soft (colostomy is working, some stool in bag, ) Incision(s): clean, dry, intact Extremities: normal range of motion, non-tender, normal inspection Laboratory Results: Results Past 24 Hours Test 10/28/16 08:20 Range/Units Assessment & Plan pt is post exploratory laparotomy, sigmoid colectomy, end colostomy, cecostomy with decompression, and abdominal washout. continue treatment, CBC CMP today will F/U
[2016-10-28 09:07] LABS: BASO % 0.1 %; BASO ABS # 0.01 K/uL (0-0.2); COMPLETE YES; EOS % 1.8 %; HEMATOCRIT 31.9 % (42-52); IG% 0.4 %; LYMPH % 2.2 %; LYMPH ABS # 0.28 K/uL (1.2-3.4); MEAN CELL VOLUME 85.5 fL (80-100); MEAN CORPUSCULAR HEMOGLOBIN 26.5 pg (25-34); MEAN PLATELET VOLUME 9.1 fL (7.4-10.4); MONO % 5.8 %; NEUT % 89.7 %; PLATELET COUNT 498 K/uL (130-400); RED BLOOD COUNT 3.73 M/uL (4.7-6.1); WHITE BLOOD COUNT 12.75 K/uL (4.8-10.8)
[2016-10-28 09:23] LABS: BUN/CREATININE RATIO 21.6 (10-20); CALCIUM 10.5 mg/dl (8.5-10.1); CREATININE 0.68 mg/dl (0.60-1.40); POTASSIUM 3.4 mmol/L (3.5-5.1)
[2016-10-28] MEDS: TAMSULOSIN HCL 0.4 MG CAP PO SCH (09:25)
[2016-10-28] MEDS: FINASTERIDE 5 MG TAB PO SCH (09:26)
[2016-10-28] MEDS: METOPROLOL TARTRATE 25 MG TAB PO SCH ×2 (09:26→20:31)
[2016-10-28] MEDS: ENOXAPARIN 40 MG/0.4 ML SYR SQ SCH (09:27)
[2016-10-28 09:28] LABS: ALB/GLOB RATIO 0.5 (0.9-2)
--- NOTE | 2016-10-28 12:39 | Progress Note ---
Subjective Date of Service: Oct 28, 2016. Subjective pt remains lethargic but states his pain is better Review of Systems Constitutional: No fever, No chills, No weakness Respiratory: No cough, No shortness of breath Cardiac: No chest pain, No edema Abdomen: + pain, No nausea, No vomiting, No diarrhea, No constipation Musculoskeletal: No joint pain, No muscle pain Objective Vital Signs Date Time Temp Pulse Resp B/P (MAP) Pulse Ox O2 Delivery O2 Flow Rate FiO2 10/28/16 10:38 Nasal Cannula 2.0 10/28/16 07:31 36.7 92 18 154/74 (100) 98 Room Air 10/27/16 23:35 36.4 83 15 149/65 (93) 95 Nasal Cannula 2.0 10/27/16 23:30 Nasal Cannula 2.0 10/27/16 16:46 Nasal Cannula 2.0 10/27/16 15:12 36.8 90 18 133/78 (96) 98 Nasal Cannula 2.0 Physical Exam General Appearance: WD/WN, + mild distress Neck: supple, no JVD Respiratory/Chest: chest non-tender, + decreased breath sounds Cardiovascular: regular rate, rhythm, + systolic murmur Abdomen: soft, + abnormal bowel sounds, + guarding, + tenderness Extremities: no pedal edema, no calf tenderness Laboratory Results Last 24 Hours Test 10/28/16 08:32 White Blood Count 12.75 K/uL Red Blood Count 3.73 M/uL Hemoglobin 9.9 g/dL Hematocrit 31.9 % Mean Corpuscular Volume 85.5 fL Mean Corpuscular Hemoglobin 26.5 pg Mean Corpuscular Hemoglobin Concent 31.0 g/dl Platelet Count 498 K/uL Mean Platelet Volume 9.1 fL Neutrophils (%) (Auto) 89.7 % Lymphocytes (%) (Auto) 2.2 % Monocytes (%) (Auto) 5.8 % Eosinophils (%) (Auto) 1.8 % Basophils (%) (Auto) 0.1 % Neutrophils # (Auto) 11.44 K/uL Lymphocytes # (Auto) 0.28 K/uL Monocytes # (Auto) 0.74 K/uL Eosinophils # (Auto) 0.23 K/uL Basophils # (Auto) 0.01 K/uL RDW Standard Deviation 42.7 fL RDW Coefficient of Variation 13.7 % Immature Granulocyte % (Auto) 0.4 % Immature Granulocyte # (Auto) 0.05 K/uL Sodium Level 138 mmol/L Potassium Level 3.4 mmol/L Chloride Level 99 mmol/L Carbon Dioxide Level 37 mmol/L Anion Gap 2.0 mmol/L Blood Urea Nitrogen 15 mg/dl Creatinine 0.68 mg/dl Est Creatinine Clear Calc Drug Dose 82.1 ml/min Estimated GFR () 102.4 Estimated GFR (Non- 88.3 BUN/Creatinine Ratio 21.6 Random Glucose 92 mg/dl Calcium Level 10.5 mg/dl Total Bilirubin 0.4 mg/dl Aspartate Amino Transf (AST/SGOT) 14 U/L Alanine Aminotransferase (ALT/SGPT) 13 U/L Alkaline Phosphatase 86 U/L Total Protein 4.8 gm/dl Albumin 1.6 gm/dl Globulin 3.2 gm/dl Albumin/Globulin Ratio 0.5 Assessment and Plan 81 y/o M presented with bowel perforation taken to OR 10/24, Hx HTN, BPH, mild cognitive impairment Per surgical report, pt is post exploratory laparotomy, sigmoid colectomy, end colostomy, cecostomy with decompression, and abdominal washout. pathology is negative for tumor Bowel perforation - post laparotomy, colectomy/colostomy 10/24. Zosyn continues , . Morphine PRN for pain, pain is in good control IVF - per surgery. Decision to start PO and colostomy management per surgery. HTN - metoprolol, systolic improved with b humble, will keep on metoprolol but change to atenolol on discharge as per his home meds BPH - Finasteride and Flomax no complaints Lovenox provided for DVT prophylaxis.
[2016-10-28 15:01] VITALS: BP 132/70; PULSE 88; TEMP 36.7; O2SAT 97
[2016-10-28] MEDS: LACTATED RINGER'S 1000ML 1,000 ML IV SCH (18:53)
[2016-10-28] MEDS: ACETAMINOPHEN IV 100 ML IV PRN (19:34)
[2016-10-28 20:33] VITALS: BP 129/69; PULSE 91
[2016-10-28] MEDS ORDERED: SODIUM CHLORIDE 0.9% 500ML 500 ML IV SCH (22:30)
[2016-10-28 22:59] VITALS: BP 163/73; PULSE 91; TEMP 36.6; O2SAT 95
[2016-10-29] MEDS: PIPERACILL/TAZOBAC IV 3.375 GM in DEXTROSE 5% 100ML IV SCH ×3 (05:51→21:39)
[2016-10-29 07:18] VITALS: BP 149/71; PULSE 95; TEMP 36.6; O2SAT 97
[2016-10-29] MEDS: FINASTERIDE 5 MG TAB PO SCH (08:36)
[2016-10-29] MEDS: POTASSIUM CHLORIDE 20 MEQ TABCR PO SCH (08:36)
[2016-10-29] MEDS: TAMSULOSIN HCL 0.4 MG CAP PO SCH (08:36)
[2016-10-29] MEDS: METOPROLOL TARTRATE 25 MG TAB PO SCH ×2 (08:37→21:01)
[2016-10-29] MEDS: ENOXAPARIN 40 MG/0.4 ML SYR SQ SCH (08:38)
[2016-10-29 09:00] VITALS: O2SAT 92
--- NOTE | 2016-10-29 10:34 | Surgery Progress Note ---
Surgery Progress Note Date of Service Oct 29, 2016. Subjective + feeling well pt is doing better, more wake, no abdominal pain, no nausea, no vomiting, the colostomy is working well, Objective Vital Signs: Date Time Temp Pulse Resp B/P (MAP) Pulse Ox O2 Delivery O2 Flow Rate FiO2 10/29/16 09:00 92 Room Air 10/29/16 07:18 36.6 95 18 149/71 (97) 97 Room Air 10/28/16 23:45 Nasal Cannula 2.0 10/28/16 22:59 36.6 91 16 163/73 (103) 95 Nasal Cannula 2.0 10/28/16 20:33 91 129/69 (89) 10/28/16 15:10 Nasal Cannula 2.0 10/28/16 15:01 36.7 88 16 132/70 (90) 97 Nasal Cannula 2.0 10/28/16 10:38 Nasal Cannula 2.0 General Appearance: WD/WN Head: normocephalic Neck: supple, no JVD Respiratory/Chest: chest non-tender, lungs clear Cardiovascular: regular rate, rhythm, no edema Abdomen: normal bowel sounds, non tender, non distended, soft Incision(s): clean, dry, intact Extremities: normal range of motion, non-tender, normal inspection Assessment & Plan pt is post exploratory laparotomy, sigmoid colectomy, end colostomy, cecostomy with decompression, and abdominal washout. continue treatment, CBC CMP today will F/U 10/29/2016 pt is doing better, continue treatment, pt is post exploratory laparotomy, sigmoid colectomy, end colostomy, cecostomy with decompression, and abdominal washout. continue treatment, CBC CMP today will F/U
--- NOTE | 2016-10-29 11:42 | Progress Note ---
Subjective Date of Service: Oct 29, 2016. Subjective pt has made a dramatic improvement overnight, still sleepy but sitting in chair eating breakfast states pain is controlled Review of Systems Constitutional: + weakness, + fatigue, No fever, No chills Respiratory: No cough, No shortness of breath Cardiac: No chest pain, No edema Abdomen: + pain, + constipation, No nausea, No vomiting, No diarrhea Musculoskeletal: No joint pain, No muscle pain Objective Vital Signs Date Time Temp Pulse Resp B/P (MAP) Pulse Ox O2 Delivery O2 Flow Rate FiO2 10/29/16 11:22 Room Air 10/29/16 09:00 92 Room Air 10/29/16 07:18 36.6 95 18 149/71 (97) 97 Room Air 10/28/16 23:45 Nasal Cannula 2.0 10/28/16 22:59 36.6 91 16 163/73 (103) 95 Nasal Cannula 2.0 10/28/16 20:33 91 129/69 (89) 10/28/16 15:10 Nasal Cannula 2.0 10/28/16 15:01 36.7 88 16 132/70 (90) 97 Nasal Cannula 2.0 Physical Exam General Appearance: WD/WN, + mild distress Eyes: PERRL, EOMI Neck: supple, no JVD Respiratory/Chest: chest non-tender, lungs clear Cardiovascular: regular rate, rhythm, no murmur Abdomen: + abnormal bowel sounds, + distended, + tenderness Neurologic/Psychiatric: alert, oriented x 3 Assessment and Plan 81 y/o M presented with bowel perforation taken to OR 10/24, Hx HTN, BPH, mild cognitive impairment Per surgical report, pt is post exploratory laparotomy, sigmoid colectomy, end colostomy, cecostomy with decompression, and abdominal washout. pathology is negative for tumor Bowel perforation - post laparotomy, colectomy/colostomy 10/24. Zosyn continues , . Morphine PRN for pain, pain is in good control IVF - per surgery. PO feedings started and colostomy management per surgery. HTN - in good control after some adjustment, metoprolol, , will keep on metoprolol while here but consider resumption of outpt atenolol on discharge BPH - Finasteride and Flomax Lovenox provided for DVT prophylaxis.
[2016-10-29 11:46] VITALS: BP 130/69; PULSE 102; O2SAT 91
[2016-10-29] MEDS: LACTATED RINGER'S 1000ML 1,000 ML IV SCH (15:11)
[2016-10-29 15:27] VITALS: BP 129/68; PULSE 97; TEMP 36.8; O2SAT 90
[2016-10-29 21:01] VITALS: BP 146/78; PULSE 95
[2016-10-29 22:49] VITALS: BP 145/71; PULSE 86; TEMP 36.8; O2SAT 91
[2016-10-30] MEDS: PIPERACILL/TAZOBAC IV 3.375 GM in DEXTROSE 5% 100ML IV SCH ×3 (05:30→21:39)
[2016-10-30 06:25] LABS: HEMATOCRIT 30.6 % (42-52); MEAN CELL VOLUME 84.1 fL (80-100); MEAN CORPUSCULAR HEMOGLOBIN 26.4 pg (25-34); MEAN CORPUSCULAR HGB CONC 31.4 g/dl (32-36); MEAN PLATELET VOLUME 9.1 fL (7.4-10.4); PLATELET COUNT 508 K/uL (130-400); RED BLOOD COUNT 3.64 M/uL (4.7-6.1); WHITE BLOOD COUNT 14.14 K/uL (4.8-10.8)
[2016-10-30 07:01] LABS: CREATININE 0.66 mg/dl (0.60-1.40)
[2016-10-30 07:34] VITALS: BP 168/86; PULSE 88; TEMP 36.7; O2SAT 92
[2016-10-30] MEDS: TAMSULOSIN HCL 0.4 MG CAP PO SCH (08:23)
[2016-10-30] MEDS: METOPROLOL TARTRATE 25 MG TAB PO SCH ×2 (08:23→21:11)
[2016-10-30] MEDS: POTASSIUM CHLORIDE 20 MEQ TABCR PO SCH (08:24)
[2016-10-30] MEDS: ENOXAPARIN 40 MG/0.4 ML SYR SQ SCH (08:24)
[2016-10-30] MEDS: FINASTERIDE 5 MG TAB PO SCH (08:24)
--- NOTE | 2016-10-30 08:44 | Surgery Progress Note ---
Surgery Progress Note Date of Service Oct 30, 2016. Subjective Post OP Day: 6 + feeling well, + diet (full liquids), No complaints, No nausea eating breakfast Objective Vital Signs: Date Time Temp Pulse Resp B/P (MAP) Pulse Ox O2 Delivery O2 Flow Rate FiO2 10/30/16 07:34 36.7 88 16 168/86 (113) 92 Room Air 10/30/16 07:05 Room Air 10/29/16 23:20 Room Air 10/29/16 22:49 36.8 86 16 145/71 (95) 91 Room Air 10/29/16 21:01 95 146/78 (100) 10/29/16 15:27 36.8 97 18 129/68 (88) 90 Room Air 10/29/16 15:10 Room Air 10/29/16 11:46 102 91 10/29/16 11:22 Room Air 10/29/16 09:00 92 Room Air Physical Exam: Gavin drainage (30 cc #1, 90 cc #2 past 24 hrs, serous) Abdomen: soft Laboratory Results: Results Past 24 Hours Test 10/30/16 05:58 Range/Units White Blood Count 14.14 4.8-10.8 K/uL Red Blood Count 3.64 4.7-6.1 M/uL Hemoglobin 9.6 14.0-18.0 g/dL Hematocrit 30.6 42-52 % Mean Corpuscular Volume 84.1 80-100 fL Mean Corpuscular Hemoglobin 26.4 25-34 pg Mean Corpuscular Hemoglobin Concent 31.4 32-36 g/dl RDW Standard Deviation 41.9 36.4-46.3 fL RDW Coefficient of Variation 13.6 11.5-14.5 % Platelet Count 508 130-400 K/uL Mean Platelet Volume 9.1 7.4-10.4 fL Creatinine 0.66 0.60-1.40 mg/dl Est Creatinine Clear Calc Drug Dose 87.6 ml/min Estimated GFR () 103.6 Estimated GFR (Non- 89.4 Assessment & Plan s/p ex lap, sigmoid rxsn/colostomy for perforated diverticulitis tolerating liquids, can probably advance PT/OT WBC 14, cultures were negative, remains afebrile cont IV zosyn will give an extra 20 meq K+ this AM
[2016-10-30] MEDS ORDERED: POTASSIUM CHLORIDE 20 MEQ TABCR PO ONE (08:45)
[2016-10-30] MEDS ORDERED: NURSING VERBAL MED ORDER ONE (10:00)
--- NOTE | 2016-10-30 11:28 | Hospitalist Progress Note ---
Hospitalist Progress Note Date of Service Oct 30, 2016. (Abril Ribera ., SHILPA) Subjective Pt evaluation today including: conversation w/ patient, physical exam, chart review, lab review, review of inpatient medication list Voiding: cardona catheter in place Patient states he is feeling well. Diet per surgery: currently on liquid diet, tolerating well. Denies any pain. +chronic cough- no sputum production Patient denies any fever, chills, sweats, lightheadedness, dizziness, vision changes, CP, palpitations, edema, SOB, wheezing, abdominal pain, nausea, vomiting, diarrhea, urinary symptoms, melena, numbness/tingling, weakness, muscle/joint pain, anxiety/depression, active bleeding, or new skin discoloration/changes. (Abril Ribera ., SAVAGEC) Medications Current Inpatient Medications Medications (Trade) Dose Ordered Sig/Andrzej Route Start Time Stop Time Status Last Admin Dose Admin Piperacillin Sod/ Tazobactam Sod 3.375 gm/Dextrose 115 ml @ 28.75 mls/ hr Q8H IV 10/24/16 14:00 11/03/16 13:59 10/30/16 05:30 28.75 MLS/HR Piperacillin Sod/ Tazobactam Sod (Consult) 1 ea UD PRN N/A 10/24/16 07:30 11/23/16 07:29 Morphine Sulfate (MoRPHine SULFATE INJ) 2 mg Q3H PRN IV 10/24/16 07:30 11/07/16 07:29 10/26/16 16:10 2 MG Morphine Sulfate (MoRPHine SULFATE INJ) 4 mg Q3H PRN IV 10/24/16 07:30 11/07/16 07:29 Ondansetron HCl (Zofran Inj) 4 mg Q6H PRN IV 10/24/16 07:30 11/23/16 07:29 Acetaminophen 100 ml @ 400 mls/hr Q8H PRN IV 10/24/16 07:30 11/23/16 07:29 10/28/16 19:34 400 MLS/HR Enoxaparin Sodium (Lovenox Inj) 40 mg QAM SQ 10/24/16 14:00 11/23/16 13:59 10/30/16 08:24 40 MG Heparin Sodium (Porcine) (Heparin 10 Unit/ ml 5 ml Flush) 5 ml PRN PRN FLUSH 10/24/16 12:45 11/23/16 12:44 10/30/16 10:34 5 ML Enteral Nutritional Formula (Impact 1.0 Jose) 1,000 ml 10ML/HR PRN NG 10/25/16 10:45 11/24/16 10:44 10/25/16 13:21 1,000 ML Finasteride (Proscar Tab) 5 mg DAILY PO 10/27/16 09:00 11/26/16 08:59 10/30/16 08:24 5 MG Tamsulosin HCl (Flomax Cap) 0.4 mg DAILY PO 10/27/16 09:00 11/26/16 08:59 10/30/16 08:23 0.4 MG Lorazepam 1 mg/ Syringe 1 ml @ 1 mls/min Q30M PRN IV 10/26/16 20:30 11/25/16 20:29 10/27/16 19:26 1 MLS/MIN Acetaminophen 650 mg/Empty Bag 65 ml @ 260 mls/hr Q6H PRN IV 10/27/16 17:15 11/26/16 17:14 Ketorolac Tromethamine (Toradol Inj) 15 mg Q6H PRN IV 10/27/16 17:15 11/01/16 17:14 Metoprolol Tartrate (Lopressor Tab) 25 mg BID PO 10/28/16 09:00 11/26/16 08:59 10/30/16 08:23 25 MG Potassium Chloride (Klor-Con Tab) 20 meq QAM PO 10/29/16 09:00 11/02/16 08:59 10/30/16 08:24 20 MEQ (Abril Ribera, PA-C) Objective Vital Signs Date Time Temp Pulse Resp B/P (MAP) Pulse Ox O2 Delivery O2 Flow Rate FiO2 10/30/16 07:34 36.7 88 16 168/86 (113) 92 Room Air 10/30/16 07:05 Room Air 10/29/16 23:20 Room Air 10/29/16 22:49 36.8 86 16 145/71 (95) 91 Room Air 10/29/16 21:01 95 146/78 (100) 10/29/16 15:27 36.8 97 18 129/68 (88) 90 Room Air 10/29/16 15:10 Room Air 10/29/16 11:46 102 91 10/29/16 11:22 Room Air (Abril Ribera, JUANIS-C) Physical Exam General Appearance: no apparent distress Eyes: normal inspection, PERRL ENT: hearing grossly normal Neck: supple Respiratory/Chest: lungs clear, no respiratory distress, no accessory muscle use Cardiovascular: regular rate, rhythm Abdomen: normal bowel sounds, soft, + tenderness Extremities: no pedal edema, no calf tenderness Neurologic/Psychiatric: alert, normal mood/affect, oriented x 3 Skin: normal color, warm/dry, no rash (Abril Ribera, JUANIS-C) Laboratory Results Last 24 Hours Test 10/30/16 05:58 10/30/16 08:14 White Blood Count 14.14 K/uL Red Blood Count 3.64 M/uL Hemoglobin 9.6 g/dL Hematocrit 30.6 % Mean Corpuscular Volume 84.1 fL Mean Corpuscular Hemoglobin 26.4 pg Mean Corpuscular Hemoglobin Concent 31.4 g/dl RDW Standard Deviation 41.9 fL RDW Coefficient of Variation 13.6 % Platelet Count 508 K/uL Mean Platelet Volume 9.1 fL Creatinine 0.66 mg/dl Est Creatinine Clear Calc Drug Dose 87.6 ml/min Estimated GFR () 103.6 Estimated GFR (Non- 89.4 Bedside Glucose 130 mg/dl (Abril Ribera, JUANIS-C) Assessment and Plan 81 y/o male, with PMHx HTN, BPH, mild cognitive impairment, presented with bowel perforation taken to OR 10/24 Bowel perforation s/p exploratory laparotomy, sigmoid colectomy, end colostomy, cecostomy with decompression, and abdominal washout by Dr. Silver on 10/24: - Admitted to ICU- intubated 10/24 and extubated on 10/25 -- Transferred to med/surg on 10/26 - Pathology negative - Per surgical team: -- Diet is currently full liquid, tolerating well- advance per surgery recommendations -- Pain management w/ IV Tylenol, Toradol, and IV Morphine PRN -- Antibiotic therapy w/ IV Zosyn (started on 10/24) -- Colostomy care per surgery - Encouraged incentive spirometer Mild hypokalemia at 3.4 10/28: Continue KCL 20 mEq daily HTN: - Atenolol 50 mg daily held - Started Metoprolol 12.5 mg BID on 10/27- increased to Metoprolol 25 mg BID on - increase to 37.5 mg BID on 10/30 BPH: Continue Proscar 5 mg daily and Flomax 0.4 mg HS DVT Prophylaxis: Lovenox Code Status: LEVEL I, FULL Dispo: Discharge as per primary team - PT/OT recommend rehab- family refusing, would like patient to return home w/ family support (Abril Ribera ., PA-C) Attending Attestation: Pt seen/examined, chart reviewed, care plan d/w JUANIS Ribera. I agree w/ the king components of her documentation. Pt w/o complaints. He passed some stool via the ostomy today. No abdominal pain. Tolerating diet. Chronic cough unchanged. VSS afebrile gen - nad mouth - no thrush neck - no JVD heart - RRR lungs - CTA b/l abd - soft, colostomy with bag in place with dark brown stool, NT, BS+ ext - no edema A/P: s/p ex lap with cecostomy, sigmoid colectomy, colostomy creation (path report suggests diverticulitis). HTN - labile but control acceptable. Bowel function has returned. Hypokalemia - repeat BMP in am. dispo - rehab vs Home with HH. Art Todd MD (Art Todd MD)
[2016-10-30 12:16] VITALS: BP 122/68; O2SAT 94
[2016-10-30 15:35] VITALS: BP 129/66; PULSE 94; TEMP 37; O2SAT 97
[2016-10-30 21:09] VITALS: BP 164/80; PULSE 91
[2016-10-30 23:15] VITALS: BP 155/77; PULSE 80; TEMP 36.7; O2SAT 92
[2016-10-31] MEDS: PIPERACILL/TAZOBAC IV 3.375 GM in DEXTROSE 5% 100ML IV SCH ×3 (05:34→21:24)
--- NOTE | 2016-10-31 07:15 | Surgery Progress Note ---
Surgery Progress Note Date of Service Oct 31, 2016. Subjective Post OP Day: 7 + feeling well, + diet (soft), No nausea Objective Vital Signs: Date Time Temp Pulse Resp B/P (MAP) Pulse Ox O2 Delivery O2 Flow Rate FiO2 10/30/16 23:15 36.7 80 20 155/77 (103) 92 Room Air 10/30/16 23:10 Room Air 10/30/16 21:09 91 164/80 (108) 10/30/16 15:40 Room Air 10/30/16 15:35 37.0 94 16 129/66 (87) 97 Room Air 10/30/16 12:16 122/68 (86) 94 10/30/16 07:34 36.7 88 16 168/86 (113) 92 Room Air Physical Exam: MOHAN drainage (#1) 15, #2) 60) Abdomen: non distended, soft, + pertinent finding (stoma pink, + output) Incision(s): clean, no erythema Laboratory Results: Results Past 24 Hours Test 10/30/16 08:14 10/31/16 04:44 Range/Units Bedside Glucose 130 70-99 mg/dl Assessment & Plan s/p Edwar's tolerating diet, not taking any analgesics wants to return home rather than rehab labs pending d/c in next day or so, continue po abx at discharge
[2016-10-31 07:35] VITALS: BP 132/70; PULSE 89; TEMP 36.7; O2SAT 91
[2016-10-31] MEDS: POTASSIUM CHLORIDE 20 MEQ TABCR PO SCH (07:52)
[2016-10-31] MEDS: TAMSULOSIN HCL 0.4 MG CAP PO SCH (07:52)
[2016-10-31] MEDS: METOPROLOL TARTRATE 25 MG TAB PO SCH ×2 (07:53→21:24)
[2016-10-31] MEDS: FINASTERIDE 5 MG TAB PO SCH (07:58)
[2016-10-31] MEDS: ENOXAPARIN 40 MG/0.4 ML SYR SQ SCH (08:00)
[2016-10-31] MEDS: BOOST VANILLA PO SCH ×6 (09:36→17:49)
[2016-10-31] MEDS ORDERED: HYDR-5688 PO (09:47)
--- NOTE | 2016-10-31 09:50 | Discharge Instructions ---
Discharge Instructions Date of Service Oct 31, 2016. Admission Reason for Admission: Pneumoperitoneum Discharge Discharge Diagnosis / Problem: colostomy for diverticular perforation Discharge Goals Goal(s): Increase independence, Improve nutritional status Activity Recommendations Activity Limitations: as noted below Lifting Limitations: no more than 10 pounds Exercise/Sports Limitations: as tolerated Shower/Bathe: no limitations (shower or sponge bath in shallow water) . Instructions / Follow-Up Instructions / Follow-Up Dr. Silver in 7-10 days, call [phone] to schedule, [facility], [address] [place] [address] Current Hospital Diet Patient's current hospital diet: Low Fat Diet Discharge Diet Recommended Diet: Low Fiber Diet Procedures Procedures Performed: Exploratory laparotomy, sigmoid colectomy, end colostomy, cecostomy with decompression, and abdominal washout Pending Studies Studies pending at discharge: no Medical Emergencies . Who to Call and When: Medical Emergencies: If at any time you feel your situation is an emergency, please call 911 immediately. . Non-Emergent Contact Non-Emergency issues call your: Surgeon Call Non-Emergent contact if: you have a fever, temperature is above 101.5, your pain is not controlled, wound has increased redness, wound has increased pain, you have any medication questions . "Provider Documentation" section prepared by Jw Best. . VTE Core Measure Inpt VTE Proph given/why not?: Enoxaparin (Lovenox)SQ, SCD's [place] Drug Monitoring Program Search Results: no issues identified
[2016-10-31] MEDS ORDERED: AMOX875T PO (09:51)
[2016-10-31] MEDS: CEROVITE ADV FORMULA TAB PO SCH (10:03)
[2016-10-31 10:12] LABS: BUN/CREATININE RATIO 26.7 (10-20); CALCIUM 10.7 mg/dl (8.5-10.1); CREATININE 0.69 mg/dl (0.60-1.40)
[2016-10-31 15:27] VITALS: BP 153/68; PULSE 80; TEMP 36.6; O2SAT 92
[2016-10-31 23:25] VITALS: BP 127/66; PULSE 75; TEMP 36.6; O2SAT 94
--- NOTE | 2016-11-01 01:08 | Progress Note ---
Subjective Date of Service: late entry for visit Oct 31, 2016. Subjective Pt evaluation today including: conversation w/ patient, physical exam, chart review, lab review Pain: left hip "for years"; hurts to lay on it and walk on it PO Intake: improved Voiding: no voiding problems overall his abdomen feels good; denies pain, nausea, emesis passing flatus & stool via ostomy Review of Systems Constitutional: No fever, No chills Respiratory: + cough, No sputum, No shortness of breath Cardiac: No chest pain Abdomen: No pain Objective Vital Signs Date Time Temp Pulse Resp B/P (MAP) Pulse Ox O2 Delivery O2 Flow Rate FiO2 10/31/16 23:30 Room Air 10/31/16 23:25 36.6 75 18 127/66 (86) 94 Room Air 10/31/16 16:00 Room Air 10/31/16 15:27 36.6 80 16 153/68 (96) 92 Room Air 10/31/16 08:00 Room Air 10/31/16 07:35 36.7 89 16 132/70 (90) 91 Room Air Physical Exam General Appearance: no apparent distress, + thin ENT: pharynx normal Neck: no JVD Respiratory/Chest: lungs clear, no respiratory distress, no accessory muscle use Cardiovascular: regular rate, rhythm, no gallop, no murmur Abdomen: normal bowel sounds, non tender, soft, no organomegaly, + pertinent finding (sutures in place - clean; colostomy in place with dark brown stool) Extremities: + pedal edema, + swelling (significant - 3-4+ both thighs and lower legs as well) Neurologic/Psychiatric: alert, oriented x 3 Comments: musculo - left hip - tender to palpation over expected location of trochanteric bursa; no pain with flexion of hip; internal and external rotation of hip causes mild pain laterally Laboratory Results Last 24 Hours Test 10/31/16 09:05 Sodium Level 135 mmol/L Potassium Level 4.0 mmol/L Chloride Level 98 mmol/L Carbon Dioxide Level 35 mmol/L Anion Gap 2.0 mmol/L Blood Urea Nitrogen 18 mg/dl Creatinine 0.69 mg/dl Est Creatinine Clear Calc Drug Dose 83.8 ml/min Estimated GFR () 101.8 Estimated GFR (Non- 87.8 BUN/Creatinine Ratio 26.7 Random Glucose 125 mg/dl Calcium Level 10.7 mg/dl Assessment and Plan 81yo male: 1. s/p ex lap with cecostomy, sigmoid colectomy, colostomy creation (path report suggests diverticulitis) - doing well from surgical standpoint. 2. HTN - controlled. 3. left hip pain - either chronic IT band/bursitis pain vs OA of hip; suspect former. Follow for now. 4. hypokalemia - resolved. 5. hypercalcemia - primary hyperparathyroidism? check PTH and phos in AM then re-eval. 6. COPD - stable, not in exacerbation. 7. BPH - continue dual therapy. 8. edema of legs - likely due to severe protein calorie malnutrition (albumin < 2, etc). Boost supplementation. Consider a few days of low-dose oral lasix. both PT, OT recommend rehab (probably SNF level) will d/w patient and his family ultimate disposition is per the surgical team Continued [facility] stay due to: ambulation difficulties, multiple IV medications needed Discharge planning: uncertain
[2016-11-01] MEDS: PIPERACILL/TAZOBAC IV 3.375 GM in DEXTROSE 5% 100ML IV SCH ×3 (05:31→21:09)
[2016-11-01 07:38] LABS: HEMATOCRIT 31.3 % (42-52); MEAN CELL VOLUME 84.8 fL (80-100); MEAN CORPUSCULAR HEMOGLOBIN 26.3 pg (25-34); PLATELET COUNT 547 K/uL (130-400); RED BLOOD COUNT 3.69 M/uL (4.7-6.1)
--- NOTE | 2016-11-01 07:46 | Surgery Progress Note ---
Surgery Progress Note Date of Service Nov 01, 2016. Subjective Post OP Day: 8 + feeling well, + diet (regular, appetite decreased), No nausea Objective Vital Signs: Date Time Temp Pulse Resp B/P (MAP) Pulse Ox O2 Delivery O2 Flow Rate FiO2 10/31/16 23:30 Room Air 10/31/16 23:25 36.6 75 18 127/66 (86) 94 Room Air 10/31/16 16:00 Room Air 10/31/16 15:27 36.6 80 16 153/68 (96) 92 Room Air 10/31/16 08:00 Room Air Physical Exam: Gavin drainage (20 cc) Abdomen: non distended, soft Incision(s): clean, dry, no erythema Laboratory Results: Results Past 24 Hours Test 10/31/16 09:05 11/01/16 07:15 Range/Units Sodium Level 135 136-145 mmol/L Potassium Level 4.0 3.5-5.1 mmol/L Chloride Level 98 98-107 mmol/L Carbon Dioxide Level 35 21-32 mmol/L Anion Gap 2.0 3-11 mmol/L Blood Urea Nitrogen 18 7-18 mg/dl Creatinine 0.69 0.60-1.40 mg/dl Est Creatinine Clear Calc Drug Dose 83.8 ml/min Estimated GFR () 101.8 Estimated GFR (Non- 87.8 BUN/Creatinine Ratio 26.7 10-20 Random Glucose 125 70-99 mg/dl Calcium Level 10.7 8.5-10.1 mg/dl White Blood Count 14.80 4.8-10.8 K/uL Red Blood Count 3.69 4.7-6.1 M/uL Hemoglobin 9.7 14.0-18.0 g/dL Hematocrit 31.3 42-52 % Mean Corpuscular Volume 84.8 80-100 fL Mean Corpuscular Hemoglobin 26.3 25-34 pg Mean Corpuscular Hemoglobin Concent 31.0 32-36 g/dl Platelet Count 547 130-400 K/uL Mean Platelet Volume 9.0 7.4-10.4 fL RDW Standard Deviation 43.2 36.4-46.3 fL RDW Coefficient of Variation 14.1 11.5-14.5 % Assessment & Plan s/p Edwar's tolerating diet, not taking any analgesics awaiting decision on placement WBC remains 14, will discuss IV vs PO abx at d/c remaining drain removed stable for transfer
[2016-11-01 07:53] VITALS: BP 126/60; PULSE 82; TEMP 36.5; O2SAT 92
[2016-11-01 07:57] VITALS: O2SAT 92
[2016-11-01 08:02] LABS: BASO % 0.2 %; BASO ABS # 0.03 K/uL (0-0.2); COMPLETE YES; EOS % 1.4 %; IG% 0.7 %; LYMPH % 3.5 %; LYMPH ABS # 0.52 K/uL (1.2-3.4); MONO % 5.9 %; NEUT % 88.3 %
--- NOTE | 2016-11-01 08:47 | Discharge Instructions ---
Discharge Instructions Date of Service Nov 01, 2016. Admission Reason for Admission: Pneumoperitoneum Discharge Discharge Diagnosis / Problem: perforated diverticulitis Discharge Goals Goal(s): Increase independence, Improve nutritional status Activity Recommendations Activity Level: Assistance Required Therapies: Physical Therapy, Occupational Therapy Exercise/Sports Limitations: as tolerated Shower/Bathe: no limitations . Additional Information Patient informed of condition: Yes Advance Directives: No DNR: No Level of Care: Acute Rehab Communicable Disease: No Prognosis: Improving Instructions / Follow-Up Instructions / Follow-Up Dr. Silver in 1 week for staple removal Current Hospital Diet Patient's current hospital diet: Low Fat Diet Discharge Diet Recommended Diet: Regular Diet Procedures Procedures Performed: Exploratory laparotomy, sigmoid colectomy, end colostomy, cecostomy with decompression, and abdominal washout Pending Studies Studies pending at discharge: no Medical Emergencies . Who to Call and When: Medical Emergencies: If at any time you feel your situation is an emergency, please call 911 immediately. . Non-Emergent Contact Non-Emergency issues call your: Surgeon Call Non-Emergent contact if: you have a fever, temperature is above 101.5, wound has increased redness . . "Provider Documentation" section prepared by Jw Best. . Core Measure Problem Core Measures: None [place] Drug Monitoring Program Search Results: no issues identified
[2016-11-01] MEDS ORDERED: Boost PO (08:48)
[2016-11-01] MEDS ORDERED: AMOX875T PO (08:48)
[2016-11-01] MEDS: BOOST VANILLA PO SCH ×6 (08:49→17:45)
[2016-11-01] MEDS: TAMSULOSIN HCL 0.4 MG CAP PO SCH (08:50)
[2016-11-01] MEDS: POTASSIUM CHLORIDE 20 MEQ TABCR PO SCH (08:51)
[2016-11-01] MEDS: METOPROLOL TARTRATE 25 MG TAB PO SCH ×2 (08:52→21:09)
[2016-11-01] MEDS: CEROVITE ADV FORMULA TAB PO SCH (08:54)
[2016-11-01] MEDS: FINASTERIDE 5 MG TAB PO SCH (08:55)
[2016-11-01] MEDS: ENOXAPARIN 40 MG/0.4 ML SYR SQ SCH (09:05)
[2016-11-01 11:06] VITALS: BP 108/58; PULSE 73; O2SAT 97
--- NOTE | 2016-11-01 11:11 | Discharge Summary ---
Discharge Summary Date of Service Nov 01, 2016. Admission Date/Reason Oct 24, 2016 at 07:10 Pneumoperitoneum. Discharge Date/Disposition Nov 01, 2016 Rehab Diagnosis Principal Diagnosis: 1. Perforated sigmoid diverticulitis 2. Postoperative anemia Secondary Diagnoses/Problems: 1. Hypertension 2. COPD 3. BPH Procedure(s) Performed Exploratory laparotomy, sigmoid colectomy, end colostomy, cecostomy with decompression, and abdominal washout Consultations 1. [facility] Industrial Machinery Mechanic 2. [facility] Hospitalist Medication Reconciliation New Medications: Amoxicillin & Pot Clavulanate (Augmentin 875-125 mg) 1 Tab Tab 875 MG PO BID, #12 TAB Hydrocodone/Acetaminophen 5MG/325MG ([place] 5MG/325MG) Tab 1 TABLET PO Q4H PRN for Pain, #15 TAB [Boost] () 1 CAN LIQD 1 CAN PO TIDM Continued Medications: Aspirin (Aspirin) 81 Mg Tab 1 TAB PO DAILY for 90 Days, #90 TAB 3 Refills Atenolol (Tenormin) 50 Mg Tab 50 MG PO DAILY, TAB Finasteride (Proscar) 5 Mg Tab 5 MG PO DAILY, TAB Indapamide (Lozol) 1.25 Mg Tab 1.25 MG PO DAILY, TAB Multiple Vitamins W/ Minerals (Centrum Adults) 1 Tab Tab 1 TAB PO DAILY Ocuvite Preservision (Ocuvite Preservision) 1 Tab Tab 1 TAB PO DAILY, TAB Tamsulosin Hcl (Flomax) 0.4 Mg Cap 0.4 MG PO DAILY, CAP Admission Physical Exam As per Admitting History & Physical. Hospital Course 81 y/o male presented to ED overnight with several hour history of abdominal pain. CT showed free air, sigmoid thickening with likely perforation and cecal distention. He was taken to the OR emergently where exploratory laparotomy, sigmoid colectomy, end colostomy, cecostomy with decompression, and abdominal washout were carried out. He was transferred to ICU intubated. He was extubated 24 hours later. He remained stable on POD 2, was transferred to the surgical floor. NG was discontinued. IV Zosyn was continued throughout admission. He had some confusion on POD 3 but made significant improvement over days 4 and 5. He was tolerating an advancing diet. Stoma was pink and there was colostomy output. He was tolerating regular diet on day 6. White count remained slightly elevated but urine and blood cultures were negative and he remained afebrile and was was clinically doing well. C. diff was also negative. He was wanting to return home although therapy recommended rehab. Once those arrangements were made he stable for transfer on POD 8 to [facility]. Discharge Instructions Follow-up dr. Treviño office in 1 week, [phone] Will need follow-up for high calcium/elevated PTH Please refer to the electronic Patient Visit Report (Discharge Instructions) for additional information.
--- NOTE | 2016-11-01 12:09 | Hospitalist Progress Note ---
Hospitalist Progress Note Date of Service Nov 01, 2016. (Abril Ribera ., SHILPA) Subjective Pt evaluation today including: conversation w/ patient, physical exam, chart review, lab review, review of inpatient medication list Voiding: no voiding problems Patient states he is feeling well. Oriented x3. Eating and drinking OK. +non-productive cough. Patient denies any fever, chills, sweats, lightheadedness, dizziness, vision changes, CP, palpitations, edema, SOB, wheezing, abdominal pain, nausea, vomiting, diarrhea, urinary symptoms, melena, numbness/tingling, weakness, muscle/joint pain, anxiety/depression, active bleeding, or new skin discoloration/changes. (Abril Ribera ., SAVAGEC) Medications Current Inpatient Medications Medications (Trade) Dose Ordered Sig/Andrzej Route Start Time Stop Time Status Last Admin Dose Admin Piperacillin Sod/ Tazobactam Sod 3.375 gm/Dextrose 115 ml @ 28.75 mls/ hr Q8H IV 10/24/16 14:00 11/03/16 13:59 11/01/16 05:31 28.75 MLS/HR Piperacillin Sod/ Tazobactam Sod (Consult) 1 ea UD PRN N/A 10/24/16 07:30 11/23/16 07:29 Morphine Sulfate (MoRPHine SULFATE INJ) 2 mg Q3H PRN IV 10/24/16 07:30 11/07/16 07:29 10/26/16 16:10 2 MG Morphine Sulfate (MoRPHine SULFATE INJ) 4 mg Q3H PRN IV 10/24/16 07:30 11/07/16 07:29 Ondansetron HCl (Zofran Inj) 4 mg Q6H PRN IV 10/24/16 07:30 11/23/16 07:29 Acetaminophen 100 ml @ 400 mls/hr Q8H PRN IV 10/24/16 07:30 11/23/16 07:29 10/28/16 19:34 400 MLS/HR Enoxaparin Sodium (Lovenox Inj) 40 mg QAM SQ 10/24/16 14:00 11/23/16 13:59 11/01/16 09:05 40 MG Heparin Sodium (Porcine) (Heparin 10 Unit/ ml 5 ml Flush) 5 ml PRN PRN FLUSH 10/24/16 12:45 8/10/17 12:44 11/01/16 10:35 5 ML Enteral Nutritional Formula (Impact 1.0 Jose) 1,000 ml 10ML/HR PRN NG 10/25/16 10:45 11/24/16 10:44 10/25/16 13:21 1,000 ML Finasteride (Proscar Tab) 5 mg DAILY PO 10/27/16 09:00 11/26/16 08:59 11/01/16 08:55 5 MG Tamsulosin HCl (Flomax Cap) 0.4 mg DAILY PO 10/27/16 09:00 11/26/16 08:59 11/01/16 08:50 0.4 MG Lorazepam 1 mg/ Syringe 1 ml @ 1 mls/min Q30M PRN IV 10/26/16 20:30 11/25/16 20:29 10/27/16 19:26 1 MLS/MIN Acetaminophen 650 mg/Empty Bag 65 ml @ 260 mls/hr Q6H PRN IV 10/27/16 17:15 11/26/16 17:14 Ketorolac Tromethamine (Toradol Inj) 15 mg Q6H PRN IV 10/27/16 17:15 11/01/16 17:14 10/31/16 14:31 15 MG Potassium Chloride (Klor-Con Tab) 20 meq QAM PO 10/29/16 09:00 11/02/16 08:59 11/01/16 08:51 20 MEQ Metoprolol Tartrate (Lopressor Tab) 37.5 mg BID PO 10/30/16 21:00 11/26/16 08:59 11/01/16 08:52 37.5 MG Enteral Nutritional Formula (Boost) 1 can TIDM PO 10/31/16 08:30 11/30/16 08:29 11/01/16 08:49 1 CAN Multivitamins/ Minerals (Multivitamin W/ Minerals Tab) 1 tab QAM PO 10/31/16 09:00 11/30/16 08:59 11/01/16 08:54 1 TAB (Abril Ribera PA-C) Objective Vital Signs Date Time Temp Pulse Resp B/P (MAP) Pulse Ox O2 Delivery O2 Flow Rate FiO2 11/01/16 07:57 92 Room Air 11/01/16 07:55 Room Air 11/01/16 07:53 36.5 82 14 126/60 (82) 92 Room Air 10/31/16 23:30 Room Air 10/31/16 23:25 36.6 75 18 127/66 (86) 94 Room Air 10/31/16 16:00 Room Air 10/31/16 15:27 36.6 80 16 153/68 (96) 92 Room Air (Abril Ribera, PA-C) Physical Exam General Appearance: no apparent distress Eyes: normal inspection, PERRL ENT: hearing grossly normal Neck: supple Respiratory/Chest: no respiratory distress, no accessory muscle use, + rhonchi (throughout all lung doran ) Cardiovascular: regular rate, rhythm Abdomen: normal bowel sounds, soft, + pertinent finding (ostomy- stool present ; incision site- clean and dry w/ no obvious erythema or drainage ) Extremities: no calf tenderness, + swelling (+2 pitting edema of bilateral lower extremities ) Neurologic/Psychiatric: alert, normal mood/affect, oriented x 3 Skin: normal color, warm/dry, no rash (Abril Ribera ., PA-C) Laboratory Results Last 24 Hours Test 11/01/16 07:15 White Blood Count 14.80 K/uL Red Blood Count 3.69 M/uL Hemoglobin 9.7 g/dL Hematocrit 31.3 % Mean Corpuscular Volume 84.8 fL Mean Corpuscular Hemoglobin 26.3 pg Mean Corpuscular Hemoglobin Concent 31.0 g/dl Platelet Count 547 K/uL Mean Platelet Volume 9.0 fL Neutrophils (%) (Auto) 88.3 % Lymphocytes (%) (Auto) 3.5 % Monocytes (%) (Auto) 5.9 % Eosinophils (%) (Auto) 1.4 % Basophils (%) (Auto) 0.2 % Neutrophils # (Auto) 13.06 K/uL Lymphocytes # (Auto) 0.52 K/uL Monocytes # (Auto) 0.88 K/uL Eosinophils # (Auto) 0.21 K/uL Basophils # (Auto) 0.03 K/uL RDW Standard Deviation 43.2 fL RDW Coefficient of Variation 14.1 % Immature Granulocyte % (Auto) 0.7 % Immature Granulocyte # (Auto) 0.10 K/uL Phosphorus Level 2.4 mg/dl Parathyroid Hormone (Intact) 164.3 pg/mL (Abril Ribera ., PA-C) Assessment and Plan 81 y/o male, with PMHx HTN, BPH, mild cognitive impairment, presented with bowel perforation taken to OR 10/24 Bowel perforation s/p exploratory laparotomy, sigmoid colectomy, end colostomy, cecostomy with decompression, and abdominal washout by Dr. Silver on 10/24: - Admitted to ICU- intubated 10/24 and extubated on 10/25 -- Transferred to med/surg on 10/26 - Pathology negative - Per surgical team: -- Advanced diet per surgery recommendations- tolerating low fat diet and boost supplement -- Pain management w/ IV Tylenol, Toradol, and IV Morphine PRN -- Antibiotic therapy w/ IV Zosyn (started on 10/24) -- Colostomy care per surgery - Encouraged incentive spirometer Hypercalcemia, ?secondary primary hyperparathyroidism: - PTH 164.3 and phosphate- 2.4 - Outpatient follow-up w/ Endocrinology recommended Mild hypokalemia at 3.4 10/28- RESOLVED: Continue KCL 20 mEq daily COPD- STABLE HTN- CONTROLLED: - Atenolol 50 mg daily held- resume at discharge - Treated w/ Metoprolol 37.5 mg BID while inpatient Bilateral lower extremity edema, likely due to severe protein calorie malnutrition (albumin <2): - Boost supplement - Lozol 1.25 mg daily held- resume at discharge BPH: Continue Proscar 5 mg daily and Flomax 0.4 mg HS DVT Prophylaxis: Lovenox Code Status: LEVEL I, FULL Dispo: Discharge as per primary team- planning for acute rehab- medically stable for discharge (Abril Ribera, PA-C) Attending Attestation: Pt seen/examined, chart reviewed,care plan d/w JUANIS Ribera. I agree w/ the king components of her documentation. [facility]. Denies complaints except for cough. LE edema persists. Diet improving. We had discussion re: suspected primary hyperparathyroidism. vss afebrile gen - nad neck - no JVD heart - RRR lungs - course BS b/l, no rales abd - soft, colostomy in place with brown stool, NT, incision clean ext - 2-3+ pitting edema from the hips all the ways down to the feet PTH elevated calcium mildly high phos mildly low A/P: 1. hypercalcemia - labs c/w primary hyperparathyroidism. At this time ca level is mildly high and he has no symptoms. outpatient endo f/u. 2. LE edema - lasix 20mg IV x1 with mag/K supplement. 2nd to immobilization, hypoalbuminemia, and copious hydration this admission. reassess response to lasix in AM; recheck labs in am. other plans per Ms. Ribera. should be ready for d/c tomorrow from medical standpoint Curtis TODD MD (Art Todd MD)
[2016-11-01 15:42] VITALS: BP 113/63; PULSE 84; TEMP 36.8; O2SAT 92
[2016-11-01 16:00] VITALS: O2SAT 92
[2016-11-01] MEDS ORDERED: POTASSIUM CHLORIDE 10 MEQ TABCR PO STA (17:01)
[2016-11-01] MEDS ORDERED: FUROSEMIDE INJ 20 MG in SYRINGE 0 ML IV SCH (17:15)
[2016-11-01] MEDS ORDERED: MAGNESIUM OXIDE 400 MG TAB PO SCH (17:15)
[2016-11-01] MEDS ORDERED: NURSING VERBAL MED ORDER ONE (18:30)
[2016-11-01 23:05] VITALS: BP 148/74; PULSE 70; TEMP 36.7; O2SAT 93
[2016-11-02] MEDS: PIPERACILL/TAZOBAC IV 3.375 GM in DEXTROSE 5% 100ML IV SCH (05:39)
[2016-11-02 06:57] LABS: HEMATOCRIT 29.8 % (42-52); MEAN CELL VOLUME 84.9 fL (80-100); MEAN CORPUSCULAR HEMOGLOBIN 26.8 pg (25-34); MEAN CORPUSCULAR HGB CONC 31.5 g/dl (32-36); MEAN PLATELET VOLUME 9.1 fL (7.4-10.4); PLATELET COUNT 585 K/uL (130-400); RED BLOOD COUNT 3.51 M/uL (4.7-6.1); WHITE BLOOD COUNT 13.68 K/uL (4.8-10.8)
[2016-11-02 07:25] LABS: CREATININE 0.8 mg/dl (0.60-1.40)
[2016-11-02] MEDS ORDERED: AMOX875T PO (07:25)
--- NOTE | 2016-11-02 07:33 | Surgery Progress Note ---
Surgery Progress Note Date of Service Nov 02, 2016. Subjective Post OP Day: 9 + feeling well Objective Vital Signs: Date Time Temp Pulse Resp B/P (MAP) Pulse Ox O2 Delivery O2 Flow Rate FiO2 11/01/16 23:15 Room Air 11/01/16 23:05 36.7 70 20 148/74 (98) 93 Room Air 11/01/16 16:00 92 Room Air 11/01/16 15:42 36.8 84 16 113/63 (80) 92 Room Air 11/01/16 11:06 73 97 11/01/16 07:57 92 Room Air 11/01/16 07:55 Room Air 11/01/16 07:53 36.5 82 14 126/60 (82) 92 Room Air Abdomen: non distended, soft Laboratory Results: Results Past 24 Hours Test 11/02/16 06:47 Range/Units White Blood Count 13.68 4.8-10.8 K/uL Red Blood Count 3.51 4.7-6.1 M/uL Hemoglobin 9.4 14.0-18.0 g/dL Hematocrit 29.8 42-52 % Mean Corpuscular Volume 84.9 80-100 fL Mean Corpuscular Hemoglobin 26.8 25-34 pg Mean Corpuscular Hemoglobin Concent 31.5 32-36 g/dl RDW Standard Deviation 43.0 36.4-46.3 fL RDW Coefficient of Variation 14.2 11.5-14.5 % Platelet Count 585 130-400 K/uL Mean Platelet Volume 9.1 7.4-10.4 fL Creatinine 0.80 0.60-1.40 mg/dl Est Creatinine Clear Calc Drug Dose 72.2 ml/min Estimated GFR () 95.7 Estimated GFR (Non- 82.6 Assessment & Plan s/p Edwar's tolerating diet, not taking any analgesics WBC 13, po abx at d/c ok for transfer to [facility]
[2016-11-02 07:43] VITALS: BP 118/62; PULSE 76; TEMP 36.2; O2SAT 96
[2016-11-02 07:43] LABS: BUN/CREATININE RATIO 19.7 (10-20); CALCIUM 10.1 mg/dl (8.5-10.1); CREATININE 0.86 mg/dl (0.60-1.40); MAGNESIUM 2.1 mg/dl (1.8-2.4); POTASSIUM 4.1 mmol/L (3.5-5.1)
[2016-11-02] MEDS: BOOST VANILLA PO SCH ×2 (09:16)
[2016-11-02 09:17] VITALS: BP 122/65; PULSE 87
[2016-11-02] MEDS: TAMSULOSIN HCL 0.4 MG CAP PO SCH (09:19)
[2016-11-02] MEDS: FINASTERIDE 5 MG TAB PO SCH (09:20)
[2016-11-02] MEDS: METOPROLOL TARTRATE 25 MG TAB PO SCH (09:20)
[2016-11-02] MEDS: CEROVITE ADV FORMULA TAB PO SCH (09:20)
[2016-11-02] MEDS: ENOXAPARIN 40 MG/0.4 ML SYR SQ SCH (09:21)
[2016-11-02 09:48] VITALS: O2SAT 96
[2016-11-02 09:50] VITALS: BP 122/65; PULSE 87; TEMP 36.2; O2SAT 96
--- NOTE | 2016-11-02 12:10 | Hospitalist Progress Note ---
Hospitalist Progress Note Date of Service Nov 02, 2016. Subjective Pt evaluation today including: conversation w/ patient, conversation w/ family , chart review, lab review, review of inpatient medication list Voiding: no voiding problems, no incontinence Patient states he is feeling well this AM. Getting dressed- planned discharge for 1030. Tolerated breakfast well. +nonproductive cough. Patient denies any fever, chills, sweats, lightheadedness, dizziness, vision changes, CP, palpitations, edema, SOB, wheezing, abdominal pain, nausea, vomiting, diarrhea, urinary symptoms, melena, numbness/tingling, weakness, muscle/joint pain, anxiety/depression, active bleeding, or new skin discoloration/changes. Objective Vital Signs Date Time Temp Pulse Resp B/P (MAP) Pulse Ox O2 Delivery O2 Flow Rate FiO2 11/02/16 09:50 36.2 87 14 96 Room Air 11/02/16 09:48 96 Room Air 11/02/16 09:17 87 122/65 (84) 11/02/16 07:43 36.2 76 14 118/62 (80) 96 Room Air 11/02/16 07:25 Room Air 11/01/16 23:15 Room Air 11/01/16 23:05 36.7 70 20 148/74 (98) 93 Room Air 11/01/16 16:00 92 Room Air 11/01/16 15:42 36.8 84 16 113/63 (80) 92 Room Air Physical Exam General Appearance: no apparent distress Eyes: normal inspection, PERRL ENT: hearing grossly normal Neck: supple Respiratory/Chest: no respiratory distress, no accessory muscle use, + crackles (bilateral lung bases ) Cardiovascular: regular rate, rhythm Abdomen: normal bowel sounds, soft, + pertinent finding (ostomy w/ dark stool present; incision site clean/dry w/ no obvious erythema or drainage ) Extremities: no calf tenderness, + swelling (+1-2 pitting edema of bilateral lower extremities; ) Neurologic/Psychiatric: alert Skin: normal color, warm/dry, no rash Laboratory Results Last 24 Hours Test 11/02/16 06:47 White Blood Count 13.68 K/uL Red Blood Count 3.51 M/uL Hemoglobin 9.4 g/dL Hematocrit 29.8 % Mean Corpuscular Volume 84.9 fL Mean Corpuscular Hemoglobin 26.8 pg Mean Corpuscular Hemoglobin Concent 31.5 g/dl RDW Standard Deviation 43.0 fL RDW Coefficient of Variation 14.2 % Platelet Count 585 K/uL Mean Platelet Volume 9.1 fL Sodium Level 135 mmol/L Potassium Level 4.1 mmol/L Chloride Level 99 mmol/L Carbon Dioxide Level 31 mmol/L Anion Gap 5.0 mmol/L Blood Urea Nitrogen 17 mg/dl Creatinine 0.86 mg/dl Est Creatinine Clear Calc Drug Dose 67.2 ml/min Estimated GFR () 92.9 Estimated GFR (Non- 80.2 BUN/Creatinine Ratio 19.7 Random Glucose 98 mg/dl Calcium Level 10.1 mg/dl Magnesium Level 2.1 mg/dl Assessment and Plan 81 y/o male, with PMHx HTN, BPH, mild cognitive impairment, presented with bowel perforation taken to OR 10/24 Bowel perforation s/p exploratory laparotomy, sigmoid colectomy, end colostomy, cecostomy with decompression, and abdominal washout by Dr. Silver on 10/24: - Admitted to ICU- intubated 10/24 and extubated on 10/25 -- Transferred to med/surg on 10/26 - Pathology negative - Per surgical team: -- Advanced diet per surgery recommendations- tolerating low fat diet and boost supplement -- Pain management w/ IV Tylenol, Toradol, and IV Morphine PRN -- Antibiotic therapy w/ IV Zosyn (started on 10/24)- discharged w/ Augmentin -- Colostomy care per surgery - Encouraged incentive spirometer Hypercalcemia, secondary primary hyperparathyroidism: - PTH 164.3 and phosphate- 2.4 - Outpatient follow-up w/ Endocrinology Mild hypokalemia at 3.4 10/28- RESOLVED: Continue KCL 20 mEq daily COPD- STABLE HTN- CONTROLLED: - Atenolol 50 mg daily held- resume at discharge - Treated w/ Metoprolol 37.5 mg BID while inpatient Bilateral lower extremity edema, likely due to severe protein calorie malnutrition (albumin <2), immobilization, and holding diuretic: - Boost supplement - IV Lasix 20 mg x1 dose of 11/01- Lozol 1.25 mg daily held- resume at discharge BPH: Continue Proscar 5 mg daily and Flomax 0.4 mg HS DVT Prophylaxis: Lovenox Code Status: LEVEL I, FULL Dispo: Discharge as per primary team to [facility]
[2016-11-17] MEDS ORDERED: ACET-1047 PO (16:38)
[2016-11-17] MEDS ORDERED: NUTR-977 PO (16:38)
[2016-11-17] MEDS ORDERED: IPRASOL4 INH (16:38)
[2016-11-17] MEDS ORDERED: LSX20 PO (16:38)
[2016-11-27] MEDS ORDERED: ALBU4TAB10 PO (14:39)
[2016-11-27] MEDS ORDERED: VNTHFA/IN INH (14:39)
[2017-01-10] MEDS ORDERED: KFL500 PO (17:06)
[2017-01-10] MEDS ORDERED: LCTX PO (17:06)
[2017-01-10] MEDS ORDERED: CINA0.42 PO (17:06)
== END 2016-11-02 10:45 | DRG 329 ==
LOC: C.EDB 00:52 → C.MSICU 07:10 → ENRESERV 10-26 08:46 → C.MSN 10-26 10:00
PROVIDERS: ADMIT Surgery; ATTEND Surgery
PROC: 02HV33Z Insertion of Infusion Device into Superior Vena Cava, Percutaneous Approach (ICD-10-PCS; 2016-10-24)
PROC: 0D9H0ZZ Drainage of Cecum, Open Approach (ICD-10-PCS; principal; 2016-10-24 04:45)
PROC: 0DTN0ZZ Resection of Sigmoid Colon, Open Approach (ICD-10-PCS; principal; 2016-10-24 04:45)
DX: K57.20 Diverticulitis of large intestine with perforation and abscess without bleeding (principal); E43 Unspecified severe protein-calorie malnutrition; K59.39 Other megacolon; R64 Cachexia; D64.9 Anemia, unspecified; E87.6 Hypokalemia; E83.52 Hypercalcemia; I10 Essential (primary) hypertension; J44.9 Chronic obstructive pulmonary disease, unspecified; N40.0 Benign prostatic hyperplasia without lower urinary tract symptoms; G31.84 Mild cognitive impairment of uncertain or unknown etiology; Z51.81 Encounter for therapeutic drug level monitoring; Z79.899 Other long term (current) drug therapy; Z79.82 Long term (current) use of aspirin; Z87.891 Personal history of nicotine dependence

== ENCOUNTER 2016-11-05 08:30 | Inpatient (IN) | payer OTHER ==
[2016-11-05] VITALS (11 sets, daily range): BP systolic 115–138; BP diastolic 54–68; PULSE 65–69; TEMP 36.4–37.3; O2SAT 90–99; Ht 180.3 cm; Wt 76.7 kg
[~2016-11-05] VITALS: Ht 180.3 cm; Wt 76.7 kg
[~2016-11-05 08:30] MED LIST: AMOX875T PO; ASPI1TAB83 PO; ATEN50TA8 PO; Boost PO; FINA5TAB4 PO; HYDR-5688 PO; INDA1TAB3 PO; MULT-190 PO; MULT-610 PO; TAMS0.4C38 PO
--- NOTE | 2016-11-05 09:20 | EMERGENCY ROOM VISIT NOTE ---
History Report prepared by Herminio: Radha Quiros Under the Supervision of: Dr. Johnny Alegria M.D. First contact with patient: 08:50 Chief Complaint: ILLNESS Stated Complaint: SEIZURE History of Present Illness The patient is an 81 year old male who presents to the Emergency Room with complaints of a sudden seizure that occurred 1 hour ago, around 0745. The patient came to the ED via ambulance from [facility]. His blood sugar in the field was 130. EMS reported that the patient's eyes rolled back and his arms and legs were "shaking." The shaking episode lasted for approximately 40 seconds. The patient does not remember what happened. He felt well prior to the seizure-like activity. He denies any incontinence or biting his tongue. He also denies recent fevers. He also denies being in any pain. The patient does not have any history of seizures. The patient was evaluated in the ED 12 days ago and admitted to the hospital for a perforated colon. The patient had a sigmoid colectomy and had a colostomy placed. He was discharged from the hospital 3 days ago. The patient's family member states that the patient has been experiencing worsening bilateral lower extremity edema since he was discharged from the hospital 3 days ago. The patient is also experiencing a productive cough. Source of History: patient, EMS Onset: 1 hour ago, around 0745 Position: other (global) Quality: other (seizure) Timing: other (sudden) Associated Symptoms: No fevers Note: no tongue bite, no incontinence, no pain Review of Systems All systems have been listed, reviewed, and are negative other than those previously mentioned. Please see Additional Medical History Sheet. Past Medical & Surgical Medical Problems: (1) Acute blood loss anemia (2) Hypertension (3) Pneumoperitoneum Family History No pertinent family history Social History Smoking Status: Former Smoker Marital Status: Current/Historical Medications Scheduled Amoxicillin & Pot Clavulanate (Augmentin 875-125 mg), 875 MG PO BID Aspirin (Aspirin), 1 TAB PO DAILY Atenolol (Tenormin), 50 MG PO DAILY Docusate Sodium (Docusate Sodium), 1 CAP PO BID Finasteride (Proscar), 5 MG PO DAILY Indapamide (Lozol), 1.25 MG PO DAILY Multiple Vitamins W/ Minerals (Centrum Adults), 1 TAB PO DAILY Ocuvite Preservision (Ocuvite Preservision), 1 TAB PO DAILY Tamsulosin Hcl (Flomax), 0.4 MG PO DAILY [Boost], 1 CAN PO TIDM Scheduled PRN Hydrocodone/Acetaminophen 5MG/325MG ([place] 5MG/325MG), 1 TABLET PO Q4H PRN for Pain Allergies Coded Allergies: No Known Allergies (Unverified , 11/05/16) Physical Exam Vital Signs Date Time Temp Pulse Resp B/P (MAP) Pulse Ox O2 Delivery O2 Flow Rate FiO2 11/05/16 11:45 93 Room Air 11/05/16 10:29 65 18 104/49 93 Room Air 11/05/16 09:14 94 Room Air 11/05/16 09:08 81 11/05/16 08:31 36.8 71 20 121/82 94 Room Air Physical Exam GENERAL: Patient awake, alert, oriented x 3. Patient follows commands. Patient does not appear toxic. Patient is adequately hydrated and well- nourished. SKIN: No erythema, pallor, cyanosis or rash HEENT: Normal head, pupils equal, reactive to light and accommodation, bilateral arcus senilis. Ears normal. Edentulous. Oral cavity and posterior pharynx appear normal. Neck: Without adenopathy, no neck vein distention. LUNGS: Rhonchi bilaterally. No wheezes or rales. HEART: No murmurs. No gallops. No rubs ABDOMEN: Colostomy in left lower quadrant, healing scar midabdomen, bowel sounds active, nontender, no masses, no rebound, no hepatomegaly or splenomegaly. EXTREMITIES: No signs of trauma. 3+ pretibial edema. No calf or thigh tenderness. NEUROLOGIC: Cranial nerves II-XII within normal limits. No gross motor sensory function deficits. Medical Decision & Procedures ER Provider Diagnostic Interpretation: Radiology results as stated below per my review and radiologist interpretation: CHEST ONE VIEW PORTABLE FINDINGS: The endotracheal tube has been removed. There is moderate to severe pulmonary emphysema. There is a calcified left upper lung zone granuloma. There is no focal pulmonary consolidation. There is no failure. Trace pleural effusions cannot be excluded.[ IMPRESSION: Emphysema. No evidence of focal pulmonary consolidation Electronically signed by: Tom Luong M.D. 11/05/2016 9:26 AM Dictated Date/Time: 11/05/2016 9:[address] HEAD WITHOUT CONTRAST (CT) FINDINGS: No intra or extra-axial mass lesions are visualized. There is no CT evidence of acute cortical infarction. There is no evidence of midline shift. There is no acute hemorrhage. No calvarial fractures are visualized. There are minor white matter hypodensities likely on a small vessel basis. There is no evidence of pathologic ventricular dilatation. There is no evidence of acute sinusitis IMPRESSION: No acute intracranial findings Electronically signed by: Tom Luong M.D. 11/05/2016 10:09 AM Dictated Date/Time: 11/05/2016 10:08 AM Laboratory Results 11/05/16 09:39 Red Blood Count 3.23, Mean Corpuscular Volume 84.5, Mean Corpuscular Hemoglobin 26.6, Mean Corpuscular Hemoglobin Concent 31.5, Mean Platelet Volume 9.2, Neutrophils (%) (Auto) 91.1, Lymphocytes (%) (Auto) 2.6, Monocytes (%) (Auto) 5.4, Eosinophils (%) (Auto) 0.3, Basophils (%) (Auto) 0.1, Neutrophils # (Auto) 11.71, Lymphocytes # (Auto) 0.33, Monocytes # (Auto) 0.70, Eosinophils # (Auto) 0.04, Basophils # (Auto) 0.01 11/05/16 09:39 Test 11/05/16 00:00 11/05/16 09:39 11/05/16 12:35 11/05/16 12:43 Urine Color YELLOW Urine Appearance CLEAR (CLEAR) Urine pH 6.5 (4.5-7.5) Urine Specific [place] 1.021 (1.000-1.030) Urine Protein NEG (NEG) Urine Glucose (UA) NEG (NEG) Urine Ketones NEG (NEG) Urine Occult Blood 2+ (NEG) Urine Nitrite NEG (NEG) Urine Bilirubin NEG (NEG) Urine Urobilinogen NEG (NEG) Urine Leukocyte Esterase NEG (NEG) Urine WBC (Auto) 1-5 /hpf (0-5) Urine RBC (Auto) >30 /hpf (0-4) Urine Hyaline Casts (Auto) 1-5 /lpf (0-5) Urine Epithelial Cells (Auto) >30 /lpf (0-5) Urine Bacteria (Auto) NEG (NEG) White Blood Count 12.85 K/uL (4.8-10.8) Red Blood Count 3.23 M/uL (4.7-6.1) Hemoglobin 8.6 g/dL (14.0-18.0) Hematocrit 27.3 % (42-52) Mean Corpuscular Volume 84.5 fL (80-100) Mean Corpuscular Hemoglobin 26.6 pg (25-34) Mean Corpuscular Hemoglobin Concent 31.5 g/dl (32-36) Platelet Count 715 K/uL (130-400) Mean Platelet Volume 9.2 fL (7.4-10.4) Neutrophils (%) (Auto) 91.1 % Lymphocytes (%) (Auto) 2.6 % Monocytes (%) (Auto) 5.4 % Eosinophils (%) (Auto) 0.3 % Basophils (%) (Auto) 0.1 % Neutrophils # (Auto) 11.71 K/uL (1.4-6.5) Lymphocytes # (Auto) 0.33 K/uL (1.2-3.4) Monocytes # (Auto) 0.70 K/uL (0.11-0.59) Eosinophils # (Auto) 0.04 K/uL (0-0.5) Basophils # (Auto) 0.01 K/uL (0-0.2) RDW Standard Deviation 45.2 fL (36.4-46.3) RDW Coefficient of Variation 14.9 % (11.5-14.5) Immature Granulocyte % (Auto) 0.5 % Immature Granulocyte # (Auto) 0.06 K/uL (0.00-0.02) Ovalocytes 1+ Prothrombin Time 11.5 SECONDS (9.0-12.0) Prothromb Time International Ratio 1.1 (0.9-1.1) Activated Partial Thromboplast Time 23.1 SECONDS (21.0-31.0) Partial Thromboplastin Ratio 0.9 Anion Gap 4.0 mmol/L (3-11) Est Creatinine Clear Calc Drug Dose 77.4 ml/min Estimated GFR () 97.3 Estimated GFR (Non- 83.9 BUN/Creatinine Ratio 17.4 (10-20) Lactic Acid Level 1.2 mmol/L (0.4-2.0) Calcium Level 10.2 mg/dl (8.5-10.1) Total Bilirubin 0.3 mg/dl (0.2-1) Aspartate Amino Transf (AST/SGOT) 20 U/L (15-37) Alanine Aminotransferase (ALT/SGPT) 26 U/L (12-78) Alkaline Phosphatase 70 U/L (45-117) Total Protein 5.0 gm/dl (6.4-8.2) Albumin 2.0 gm/dl (3.4-5.0) Globulin 3.0 gm/dl (2.5-4.0) Albumin/Globulin Ratio 0.7 (0.9-2) Laboratory results as stated above per my review. ECG Indication: syncope Rate (beats per minute): 66 Rhythm: normal sinus Findings: no acute ischemic change, no ectopy ED Course 0852: Past medical records reviewed. The patient was evaluated in room B6. A complete history and physical examination was performed. 1046: I reassessed the patient. He is resting comfortably but he has a steady ooze from his abdominal incision. I discussed today's findings with him. He verbalized agreement of the treatment plan. 1057: Discussed the patient's case with Dr. Silver - General Surgery. He is going to come in to evaluate the patient but he requested to have the patient admitted to medicine. 1124: Dr. Silver evaluated the patient in the ED. He doesn't think that the patient needs to be taken to the OR right now but he should be admitted to medicine. 1125: Discussed the patient's case with Dr. Rascon of the [facility] Hospitalist Service. The patient will be evaluated for further management. Medical Decision Nurses notes reviewed. Medical history sheet reviewed. Differential diagnosis includes but is not limited to: new onset seizure, metabolic disorder, fever, medication reaction, post -op complication. Multiple labs, EKG and imaging were obtained. Please see above. The patient has some steady oozing from his abdominal incision. The colostomy site is not bleeding. The patient's hemoglobin has dropped almost 1 g in the past 3 days. I do not know that his cause for his syncope today. The patient had no seizure-like activity while here in the ED. The patient will require further evaluation in the hospital. I discussed care with Dr. Silver who also evaluated the patient here. The patient was also seen by the hospitalist. Blood was typed and crossed for possible transfusion later. Medication Reconcilliation Current Medication List: was personally reviewed by me Blood Pressure Screening Patient's blood pressure: Normal blood pressure Consults Time Called: 1055 Consulting Physician: Dr. Silver - General Surgery Returned Call: 1054 Discussed the patient's case with Dr. Silver - [facility] Surgery. He is going to come in to evaluate the patient but he requested to have the patient admitted to medicine. Additional Consults: Time Called: 1124 Consulted Physician: Dr. Rascon - [facility] Returned Call: 1129 Additional Comments: Discussed the patient's case with Dr. Rascon of the [facility] Hospitalist Service. The patient will be evaluated for further management. Impression Primary Impression: Syncope Additional Impressions: Anemia Postoperative bleeding from incision Scribe Attestation The scribe's documentation has been prepared under my direction and personally reviewed by me in its entirety. I confirm that the note above accurately reflects all work, treatment, procedures, and medical decision making performed by me. Departure Information Dispostion Being Evaluated By Hospitalist Referrals No Doctor, Assigned (PCP) Patient Instructions My [facility] Health Problem Qualifiers Primary Impression: Syncope Syncope type: unspecified Qualified Codes: R55 - Syncope and collapse Additional Impressions: Anemia Anemia type: unspecified type Qualified Codes: D64.9 - Anemia, unspecified
--- NOTE | 2016-11-05 09:28 | DIAGNOSTIC IMAGING REPORT ---
CHEST ONE VIEW PORTABLE CLINICAL HISTORY: new onset seizure COMPARISON STUDY: 10/24/2016 FINDINGS: The endotracheal tube has been removed. There is moderate to severe pulmonary emphysema. There is a calcified left upper lung zone granuloma. There is no focal pulmonary consolidation. There is no failure. Trace pleural effusions cannot be excluded.[ IMPRESSION: Emphysema. No evidence of focal pulmonary consolidation Electronically signed by: Tom Luong M.D. 11/05/2016 9:26 AM Dictated Date/Time: 11/05/2016 9:24 AM
[2016-11-05 09:54] LABS: BASO % 0.1 %; BASO ABS # 0.01 K/uL (0-0.2); EOS % 0.3 %; HEMATOCRIT 27.3 % (42-52); IG% 0.5 %; LYMPH % 2.6 %; LYMPH ABS # 0.33 K/uL (1.2-3.4); MEAN CELL VOLUME 84.5 fL (80-100); MEAN CORPUSCULAR HEMOGLOBIN 26.6 pg (25-34); MEAN CORPUSCULAR HGB CONC 31.5 g/dl (32-36); MEAN PLATELET VOLUME 9.2 fL (7.4-10.4); MONO % 5.4 %; NEUT % 91.1 %; PLATELET COUNT 715 K/uL (130-400); RED BLOOD COUNT 3.23 M/uL (4.7-6.1); WHITE BLOOD COUNT 12.85 K/uL (4.8-10.8)
[2016-11-05] MEDS ORDERED: DOCU100C31 PO (09:58)
[2016-11-05 10:07] LABS: INR 1.1 (0.9-1.1); PARTIAL THROMBOPLASTIN RATIO 0.9; PROTHROMBIN TIME (PATIENT) 11.5 SECONDS (9.0-12.0)
[2016-11-05 10:09] LABS: BUN/CREATININE RATIO 17.4 (10-20); CALCIUM 10.2 mg/dl (8.5-10.1); CREATININE 0.77 mg/dl (0.60-1.40); POTASSIUM 3.8 mmol/L (3.5-5.1)
--- NOTE | 2016-11-05 10:10 | DIAGNOSTIC IMAGING REPORT ---
CT HEAD WITHOUT CONTRAST (CT) CLINICAL HISTORY: No onset seizure. Confusion. COMPARISON STUDY: No previous studies for comparison. TECHNIQUE: Axial CT of the brain is performed from the vertex to the skull base. IV contrast was not administered for this examination. A dose lowering technique was utilized adhering to the principles of ALARA. CT DOSE: 709.48 mGy.cm FINDINGS: No intra or extra-axial mass lesions are visualized. There is no CT evidence of acute cortical infarction. There is no evidence of midline shift. There is no acute hemorrhage. No calvarial fractures are visualized. There are minor white matter hypodensities likely on a small vessel basis. There is no evidence of pathologic ventricular dilatation. There is no evidence of acute sinusitis IMPRESSION: No acute intracranial findings Electronically signed by: Tom Luong M.D. 11/05/2016 10:09 AM Dictated Date/Time: 11/05/2016 10:08 AM
[2016-11-05 10:12] LABS: ALB/GLOB RATIO 0.7 (0.9-2)
[2016-11-05 10:13] LABS: COMPLETE YES; OVALOCYTES 1+
[2016-11-05 10:51] LABS: URINE APPEARANCE CLEAR (CLEAR); URINE BILIRUBIN NEG (NEG); URINE COLOR YELLOW; URINE EPITHELIAL CELL AUTO >30 /lpf (0-5); URINE NITRITE NEG (NEG); URINE PH 6.5 (4.5-7.5); URINE SPECIFIC GRAVITY 1.021 (1.000-1.030); UROBILINOGEN NEG (NEG); ZZUR CULT IF INDIC CLEAN CATCH NO
[2016-11-05 10:54] LABS: MANUAL MICROSCOPIC REQUIRED? NO; REVIEW REQ? NO
--- NOTE | 2016-11-05 11:36 | Surgery Consultation ---
Consultation Date of Consultation: Nov 05, 2016. Attending Physician: History of Present Illness pt s/p ex-lap [facility] procedure for perforated diverticulitis. had been transferred to [facility] and been doing well. this am had what sounds like a near syncopal episode while walking to the bathroom. other than some weakness and decreased appetite overall felt as though he was progressing nicely there. started have some blood from the upper part of his midline incision yesterday and admits he has been coughing. pt's family also states he had alot of leg edema there compared to normal. Family History No pertinent family history Social History Smoking Status: Former Smoker Marital Status: Allergies Coded Allergies: No Known Allergies (Unverified , 11/05/16) Home Medications Scheduled Amoxicillin & Pot Clavulanate (Augmentin 875-125 mg), 875 MG PO BID Aspirin (Aspirin), 1 TAB PO DAILY Atenolol (Tenormin), 50 MG PO DAILY Docusate Sodium (Docusate Sodium), 1 CAP PO BID Finasteride (Proscar), 5 MG PO DAILY Indapamide (Lozol), 1.25 MG PO DAILY Multiple Vitamins W/ Minerals (Centrum Adults), 1 TAB PO DAILY Ocuvite Preservision (Ocuvite Preservision), 1 TAB PO DAILY Tamsulosin Hcl (Flomax), 0.4 MG PO DAILY [Boost], 1 CAN PO TIDM Scheduled PRN Hydrocodone/Acetaminophen 5MG/325MG ([place] 5MG/325MG), 1 TABLET PO Q4H PRN for Pain Review of Systems Constitutional: + fatigue Respiratory: + cough Abdomen: + problem reported (some bleeding from midline incision for 24 hours. ) Physical Exam Date Time Temp Pulse Resp B/P (MAP) Pulse Ox O2 Delivery O2 Flow Rate FiO2 11/05/16 10:29 65 18 104/49 93 Room Air 11/05/16 09:14 94 Room Air 11/05/16 09:08 81 11/05/16 08:31 36.8 71 20 121/82 94 Room Air General Appearance: no apparent distress Head: normocephalic, atraumatic Eyes: EOMI ENT: hearing grossly normal Neck: supple Respiratory/Chest: + rhonchi, + pertinent finding (frequent cough) Abdomen/GI: non tender, soft, + pertinent finding (stoma fx. midline clean. no sign of infection. small amount of bright red blood coming from between moe on upper part of incsion. ) Neurologic/Psych: alert, oriented x 3 Laboratory Results Last 24 Hours Test 11/05/16 00:00 11/05/16 09:39 Urine Color YELLOW Urine Appearance CLEAR Urine pH 6.5 Urine Specific [place] 1.021 Urine Protein NEG Urine Glucose (UA) NEG Urine Ketones NEG Urine Occult Blood 2+ Urine Nitrite NEG Urine Bilirubin NEG Urine Urobilinogen NEG Urine Leukocyte Esterase NEG Urine WBC (Auto) 1-5 /hpf Urine RBC (Auto) >30 /hpf Urine Hyaline Casts (Auto) 1-5 /lpf Urine Epithelial Cells (Auto) >30 /lpf Urine Bacteria (Auto) NEG White Blood Count 12.85 K/uL Red Blood Count 3.23 M/uL Hemoglobin 8.6 g/dL Hematocrit 27.3 % Mean Corpuscular Volume 84.5 fL Mean Corpuscular Hemoglobin 26.6 pg Mean Corpuscular Hemoglobin Concent 31.5 g/dl Platelet Count 715 K/uL Mean Platelet Volume 9.2 fL Neutrophils (%) (Auto) 91.1 % Lymphocytes (%) (Auto) 2.6 % Monocytes (%) (Auto) 5.4 % Eosinophils (%) (Auto) 0.3 % Basophils (%) (Auto) 0.1 % Neutrophils # (Auto) 11.71 K/uL Lymphocytes # (Auto) 0.33 K/uL Monocytes # (Auto) 0.70 K/uL Eosinophils # (Auto) 0.04 K/uL Basophils # (Auto) 0.01 K/uL RDW Standard Deviation 45.2 fL RDW Coefficient of Variation 14.9 % Immature Granulocyte % (Auto) 0.5 % Immature Granulocyte # (Auto) 0.06 K/uL Ovalocytes 1+ Prothrombin Time 11.5 SECONDS Prothromb Time International Ratio 1.1 Activated Partial Thromboplast Time 23.1 SECONDS Partial Thromboplastin Ratio 0.9 Sodium Level 131 mmol/L Potassium Level 3.8 mmol/L Chloride Level 97 mmol/L Carbon Dioxide Level 30 mmol/L Anion Gap 4.0 mmol/L Blood Urea Nitrogen 13 mg/dl Creatinine 0.77 mg/dl Est Creatinine Clear Calc Drug Dose 77.4 ml/min Estimated GFR () 97.3 Estimated GFR (Non- 83.9 BUN/Creatinine Ratio 17.4 Random Glucose 110 mg/dl Lactic Acid Level 1.2 mmol/L Calcium Level 10.2 mg/dl Total Bilirubin 0.3 mg/dl Aspartate Amino Transf (AST/SGOT) 20 U/L Alanine Aminotransferase (ALT/SGPT) 26 U/L Alkaline Phosphatase 70 U/L Total Protein 5.0 gm/dl Albumin 2.0 gm/dl Globulin 3.0 gm/dl Albumin/Globulin Ratio 0.7 Assessment & Plan 1. s/p diverticulits with perf. doing well from surgery. eating. stoma fx 2. incisional bleeding. ? if cough initiated the episode. simple wound care. I do not want to remove moe yet at this time as wound otherwise looks good 3. anemia. likely multi-factoral. recent surgery. chronic illness. poor nutrition. may need a unit or 2 of PRBC's in light of recent near syncope. will defer to medicine 4. from my standpoint would not need admitted however I agree with ER physician that observation would be puck[place]. monitor h/h vs transfuse. monitor syncope symptoms. will follow while he's here.
[2016-11-05] MEDS ORDERED: POLYETHYLENE (MIRALAX) 17 GM PACK PO PRN (12:45)
[2016-11-05] MEDS ORDERED: ALUMINUM/MAGNESIUM/SIMETH (MAALOX MAX) 30 ML UDC PO PRN (12:45)
[2016-11-05] MEDS ORDERED: HYDROCODONE/ACETAMOPHEN 5/325MG TAB PO PRN (12:45)
[2016-11-05] MEDS ORDERED: MAGNESIUM HYDROXIDE SUSP 30 ML UDC PO PRN (12:45)
[2016-11-05] MEDS ORDERED: ACETAMINOPHEN 325 MG TAB PO PRN (12:45)
[2016-11-05] MEDS ORDERED: ONDANSETRON INJ 2 MG/ML 2 ML VIAL IV PRN (12:45)
[2016-11-05] MEDS ORDERED: PIPERACILLIN/TAZOBACTAM 4.5 GM/100ML D5W IV STA (13:16)
[2016-11-05 13:28] LABS: MAGNESIUM 2.1 mg/dl (1.8-2.4)
[2016-11-05] MEDS ORDERED: IV FLUIDS COMPLETED PRN (13:30)
[2016-11-05] MEDS ORDERED: VANCOMYCIN INJ 2,000 MG in SODIUM CHLORIDE 0.9% 500ML 500 ML IV ONE (13:30)
--- NOTE | 2016-11-05 13:43 | History and Physical ---
History & Physical Date & Time of Service: Nov 05, 2016 at 12:55 Chief Complaint: Seizure Primary Care Physician: Mateus Boyd M.D. History of Present Illness Source: patient, family (grandson at bedside), spouse, hospital records, other ([facility] records) This is an 81 y/o male with a history of HTN, BPH, and recent perforated diverticulitis s/p sigmoid colectomy and colostomy who presented to the ED on from [facility] following a syncopal or near syncopal episode. The patient reports feeling well until this morning when he got up to go to the bathroom. He developed dizziness and lightheadedness at that time and felt like he was going to pass out. He recalls hearing someone say that he should be lowered to the ground, but that is all he recalls. He is not certain if he truly lost consciousness, but he does not think he fell or hit his head. The states that there is reportedly some shakiness in the patient's hands for a few seconds, but again the patient does not recall this. The patient denied any chest pain, palpitations, shortness of breath, nausea, vomiting, numbness or tingling at the onset of the dizziness. The patient states that the dizziness has since resolved. The patient complains of a productive cough that has been ongoing since the sigmoid colectomy on October 24. He also complains of lower extremity edema, which again began after the recent surgery, although he and his family state that the swelling has been improving. The patient denies fevers, chills, sweats, chest pain, palpitations, claudication, wheezing, shortness of breath, nausea, vomiting, abdominal pain, dysuria, hematuria, urinary retention, paralysis, weakness, numbness and tingling. Past Medical/Surgical History HTN BPH H/o perforated diverticulitis s/p sigmoid colectomy and colostomy H/o hernia repair x 2 about 5-6 years ago Family History Cancer Myocardial infarction Social History Smoking Status: Former Smoker (quit 60 years ago) Smokeless Tobacco Use: No Alcohol Use: none Drug Use: none Marital Status: Housing status: other (rehab at [facility]) Occupational Status: retired Allergies Coded Allergies: No Known Allergies (Unverified , 11/05/16) Home Medications Scheduled Amoxicillin & Pot Clavulanate (Augmentin 875-125 mg), 875 MG PO BID Aspirin (Aspirin), 1 TAB PO DAILY Atenolol (Tenormin), 50 MG PO DAILY Docusate Sodium (Docusate Sodium), 1 CAP PO BID Finasteride (Proscar), 5 MG PO DAILY Indapamide (Lozol), 1.25 MG PO DAILY Multiple Vitamins W/ Minerals (Centrum Adults), 1 TAB PO DAILY Ocuvite Preservision (Ocuvite Preservision), 1 TAB PO DAILY Tamsulosin Hcl (Flomax), 0.4 MG PO DAILY [Boost], 1 CAN PO TIDM Scheduled PRN Hydrocodone/Acetaminophen 5MG/325MG (Riverside 5MG/325MG), 1 TABLET PO Q4H PRN for Pain Review of Systems Constitutional: + problem reported (dizziness), No fever, No chills, No sweats , No weakness, No fatigue Eyes: No worsening of vision, No eye pain, No diplopia ENT: No hearing loss, No sore throat, No trouble swallowing Respiratory: + cough, + sputum, No wheezing, No shortness of breath Cardiovascular: No chest pain, No claudication, No palpitations Abdomen: No pain, No nausea, No vomiting Musculoskeletal: + swelling, No joint pain, No muscle pain, No calf pain Genitourinary - Male: No hematuria, No dysuria, No urinary retention Neurologic: No paralysis, No weakness, No numbness/tingling Integumentary: No rash, No itch, No color change Physical Exam Vital Signs Date Time Temp Pulse Resp B/P (MAP) Pulse Ox O2 Delivery O2 Flow Rate FiO2 11/05/16 11:45 93 Room Air 11/05/16 10:29 65 18 104/49 93 Room Air 11/05/16 09:14 94 Room Air 11/05/16 09:08 81 11/05/16 08:31 36.8 71 20 121/82 94 Room Air General appearance: +Thin. Well-developed, well-nourished, no apparent distress Head: Normocephalic, atraumatic Eyes: Normal inspection, PERRL, EOMI ENT: Normal ENT inspection, hearing grossly normal, pharynx normal Neck: Supple, no JVD, trachea midline Respiratory/Chest: +Rhonchi throughout, decreased breath sounds. No respiratory distress Cardiovascular: Regular rate & rhythm, no gallop, no murmur Abdomen/GI: +Incision w/moe down midline. Bandages just changed by Dr. Silver, c/d/i. Colostomy LLQ. Normal bowel sounds, non-tender, soft Extremities/Musculoskeletal: +3-4 pitting edema lower extremities bilaterally with blisters. No calf tenderness Neurological/Psych: +Disoriented to place. Alert, normal mood/affect, oriented x 2 Skin: Normal color, warm/dry, no rash Diagnostics Laboratory Results Results Past 24 Hours Test 11/05/16 00:00 11/05/16 09:39 11/05/16 12:35 Range/Units Urine Color YELLOW Urine Appearance CLEAR CLEAR Urine pH 6.5 4.5-7.5 Urine Specific [place] 1.021 1.000-1.030 Urine Protein NEG NEG Urine Glucose (UA) NEG NEG Urine Ketones NEG NEG Urine Occult Blood 2+ NEG Urine Nitrite NEG NEG Urine Bilirubin NEG NEG Urine Urobilinogen NEG NEG Urine Leukocyte Esterase NEG NEG Urine WBC (Auto) 1-5 0-5 /hpf Urine RBC (Auto) >30 0-4 /hpf Urine Hyaline Casts (Auto) 1-5 0-5 /lpf Urine Epithelial Cells (Auto) >30 0-5 /lpf Urine Bacteria (Auto) NEG NEG White Blood Count 12.85 4.8-10.8 K/uL Red Blood Count 3.23 4.7-6.1 M/uL Hemoglobin 8.6 14.0-18.0 g/dL Hematocrit 27.3 42-52 % Mean Corpuscular Volume 84.5 80-100 fL Mean Corpuscular Hemoglobin 26.6 25-34 pg Mean Corpuscular Hemoglobin Concent 31.5 32-36 g/dl Platelet Count 715 130-400 K/uL Mean Platelet Volume 9.2 7.4-10.4 fL Neutrophils (%) (Auto) 91.1 % Lymphocytes (%) (Auto) 2.6 % Monocytes (%) (Auto) 5.4 % Eosinophils (%) (Auto) 0.3 % Basophils (%) (Auto) 0.1 % Neutrophils # (Auto) 11.71 1.4-6.5 K/uL Lymphocytes # (Auto) 0.33 1.2-3.4 K/uL Monocytes # (Auto) 0.70 0.11-0.59 K/uL Eosinophils # (Auto) 0.04 0-0.5 K/uL Basophils # (Auto) 0.01 0-0.2 K/uL RDW Standard Deviation 45.2 36.4-46.3 fL RDW Coefficient of Variation 14.9 11.5-14.5 % Immature Granulocyte % (Auto) 0.5 % Immature Granulocyte # (Auto) 0.06 0.00-0.02 K/uL Ovalocytes 1+ Prothrombin Time 11.5 9.0-12.0 SECONDS Prothromb Time International Ratio 1.1 0.9-1.1 Activated Partial Thromboplast Time 23.1 21.0-31.0 SECONDS Partial Thromboplastin Ratio 0.9 Sodium Level 131 136-145 mmol/L Potassium Level 3.8 3.5-5.1 mmol/L Chloride Level 97 98-107 mmol/L Carbon Dioxide Level 30 21-32 mmol/L Anion Gap 4.0 3-11 mmol/L Blood Urea Nitrogen 13 7-18 mg/dl Creatinine 0.77 0.60-1.40 mg/dl Est Creatinine Clear Calc Drug Dose 77.4 ml/min Estimated GFR () 97.3 Estimated GFR (Non- 83.9 BUN/Creatinine Ratio 17.4 10-20 Random Glucose 110 70-99 mg/dl Lactic Acid Level 1.2 0.4-2.0 mmol/L Calcium Level 10.2 8.5-10.1 mg/dl Total Bilirubin 0.3 0.2-1 mg/dl Aspartate Amino Transf (AST/SGOT) 20 15-37 U/L Alanine Aminotransferase (ALT/SGPT) 26 12-78 U/L Alkaline Phosphatase 70 45-117 U/L Total Protein 5.0 6.4-8.2 gm/dl Albumin 2.0 3.4-5.0 gm/dl Globulin 3.0 2.5-4.0 gm/dl Albumin/Globulin Ratio 0.7 0.9-2 Diagnostic Radiology Reviewed the following studies and agree with interpretation as follows: Patient Name: KAMI LABOY Unit Number: [id number] Dictated: 11/05/161007 Transcribed: 11/05/161007 ARG Printed Date/Time: [~ rep prt dt]/[~ rep prt tm] [~ rep ct labl] - [~ rep ct ivnm] [facility] [place] [address] Dictated: 11/05/16 1008 Transcribed: 11/05/16 100 ARG Printed Date/Time: [~ rep prt dt]/[~ rep prt tm] [~ rep ct labl] - [~ rep ct ivnm] Patient: KAMI LABOY JR Address1: [address] [place] [address] Rec: [id number] Address2: Acct ID: [id number] [facility] [place] [address] Date: 1935 Sex: M Room/Bed: Ref Phy: Maetus Boyd M.D. SC: GARY Att Phy: Report #: [id number] Sofiya Phy: Mateus Boyd M.D. Test: HWO Admit Phy: Food Quality Tester: BENNIE Interpreting Phy: Tom Luong M.D. Diagnosis: SEIZURE Ordering Phy: Johnny Alegria M.D. Service Date: 11/05/16 Admit Date: 11/05/16 MNE: PWRSCRIBE CONF: DICTATED BY: Tom Luong M.D.]] CC: Mateus Boyd M.D. Ziff, Theodore, M.D. Endcc: [~ rep ct add3]] CT HEAD WITHOUT CONTRAST (CT) CLINICAL HISTORY: No onset seizure. Confusion. COMPARISON STUDY: No previous studies for comparison. TECHNIQUE: Axial CT of the brain is performed from the vertex to the skull base. IV contrast was not administered for this examination. A dose lowering technique was utilized adhering to the principles of ALARA. CT DOSE: 709.48 mGy.cm FINDINGS: No intra or extra-axial mass lesions are visualized. There is no CT evidence of acute cortical infarction. There is no evidence of midline shift. There is no acute hemorrhage. No calvarial fractures are visualized. There are minor white matter hypodensities likely on a small vessel basis. There is no evidence of pathologic ventricular dilatation. There is no evidence of acute sinusitis IMPRESSION: No acute intracranial findings Electronically signed by: Tom Luong M.D. 11/05/2016 10:09 AM Dictated Date/Time: 11/05/2016 10:08 AM The status of this report is Signed. Draft = Not yet reviewed or approved by Radiologist. Signed = Reviewed and approved by Radiologist. <AttendingPhy></AttendingPhy> <FamilyPhy>Mateus Boyd M.D.</FamilyPhy > <PrimaryPhy>Mateus Boyd M.D.</PrimaryPhy> <UnitNumber>[id number]</ UnitNumber> <VisitNumber>[id number]</VisitNumber> <PatientName>KAMI LABOY JR </PatientName> <DateOfBirth>1935</DateOfBirth> <Location>C.EDB</Location> <ServiceDate>11/05/16</ServiceDate> <MNE>ESINDI</MNE> <OrderingPhy>Johnny Alegria M.D.</OrderingPhy> <OrderingPhyMNE>f rep ord dr knutson</OrderingPhyMNE> < DictatingPhyMNE>f rep dict dr knutson</DictatingPhyMNE> <CCListMNE>f rep ct mne</ CCListMNE> <AdmittingPhyMNE>f pt admit dr knutson</AdmittingPhyMNE> <AttendingPhyMNE >f pt attend dr knutson</AttendingPhyMNE> <ConsultingPhyMNE>f pt consult dr knutson</ConsultingPhyMNE> <FamilyPhyMNE>f pt fam dr knutson</FamilyPhyMNE> <OtherPhyMNE>f pt other dr knutson</OtherPhyMNE> < PrimaryPhyMNE>f pt prim care dr knutson</PrimaryPhyMNE> <ReferringPhyMNE>f pt referring dr knutson</ReferringPhyMNE> Patient Name: KAMI LABOY JR Unit Number: [id number] Dictated: 11/05/16923 Transcribed: 11/05/16923 ARG Printed Date/Time: [~ rep prt dt]/[~ rep prt tm] [~ rep ct labl] - [~ rep ct ivnm] [facility] [place] [address] Dictated: 11/05/16923 Transcribed: 11/05/16923 ARG Printed Date/Time: [~ rep prt dt]/[~ rep prt tm] [~ rep ct labl] - [~ rep ct ivnm] Patient: KAMI LABOY Address1: [address] [place] [address] Rec: [id number] Address2: Acct ID: [id number] [facility] Zip: [place] [address] Date: 1935 Sex: M Room/Bed: Ref Phy: No Doctor, Assigned SC: GARY Att Phy: Report #: [id number] Sofiya Phy: No Doctor, Assigned Test: CXR1P Admit Phy: Food Quality Tester: PAVEL Interpreting Phy: Tom Luong M.D. Diagnosis: SEIZURE Ordering Phy: Johnny Alegria M.D. Service Date: 11/05/16 Admit Date: 11/05/16 MNE: PWRSCRIBE CONF: DICTATED BY: Tom Luong M.D.]] CC: No Doctor, Assigned Johnny Alegria M.D. Endcc: [~ rep ct add3]] CHEST ONE VIEW PORTABLE CLINICAL HISTORY: new onset seizure COMPARISON STUDY: 10/24/2016 FINDINGS: The endotracheal tube has been removed. There is moderate to severe pulmonary emphysema. There is a calcified left upper lung zone granuloma. There is no focal pulmonary consolidation. There is no failure. Trace pleural effusions cannot be excluded.[ IMPRESSION: Emphysema. No evidence of focal pulmonary consolidation Electronically signed by: Tom Luong M.D. 11/05/2016 9:26 AM Dictated Date/Time: 11/05/2016 9:24 AM The status of this report is Signed. Draft = Not yet reviewed or approved by Radiologist. Signed = Reviewed and approved by Radiologist. <AttendingPhy></AttendingPhy> <FamilyPhy>No Doctor, Assigned</FamilyPhy> < PrimaryPhy>No Doctor, Assigned</PrimaryPhy> <UnitNumber>[id number]</UnitNumber> <VisitNumber>[id number]</VisitNumber> <PatientName>KAMI LABOY JR</ PatientName> <DateOfBirth>1935</DateOfBirth> <Location>C.EDB</Location> < ServiceDate>11/05/16</ServiceDate> <MNE>ESINDI</MNE> <OrderingPhy>Johnny Alegria M.D.</OrderingPhy> <OrderingPhyMNE>f rep ord dr knutson</OrderingPhyMNE> < DictatingPhyMNE>f rep dict dr knutson</DictatingPhyMNE> <CCListMNE>f rep ct eamon</ CCListMNE> <AdmittingPhyMNE>f pt admit dr knutson</AdmittingPhyMNE> <AttendingPhyMNE >f pt attend dr knutson</AttendingPhyMNE> <ConsultingPhyMNE>f pt consult dr knutson</ConsultingPhyMNE> <FamilyPhyMNE>f pt fam dr knutson</FamilyPhyMNE> <OtherPhyMNE>f pt other dr knutson</OtherPhyMNE> < PrimaryPhyMNE>f pt prim care dr knutson</PrimaryPhyMNE> <ReferringPhyMNE>f pt referring dr knutson</ReferringPhyMNE> EKG Reviewed EKG and agree with interpretation as follows: 66 bpm, NSR Impression Assessment and Plan 81 y/o male with a history of HTN, BPH, and recent perforated diverticulitis s/ p sigmoid colectomy and colostomy who presented to the ED on 11/05 from [facility] following a syncopal or near syncopal episode. Patient afebrile, VSS. BP was 121/82 on arrival, then dropped to 104/49. Head CT negative for acute findings. CXR shows emphysema but no evidence of consolidation. Trace pleural effusions cannot be excluded. EKG shows no ischemic changes. WBC 12.85. Hgb 8.6. PLT 715. UA positive for occult blood 2+. Syncope/near syncope, acute blood loss anemia--bleeding from incision, pt with poor oral intake -Admit to telemetry for observation -Hgb 8.6 on admission, down from 9.4 3 days ago -Trend CBC w/o diff q6h x 4 -Transfuse prn if Hgb <8. Consent form signed. Type and screen completed, and 2 units type and crossed on hold from ED -Echocardiogram ordered -Trend troponin q8h x 3 -Check orthostatic BPs q shift -Decrease atenolol dose to 25 mg PO qd, start tomorrow -Hold ASA -Fall precautions -PT/OT Suspected lower respiratory infection in healthcare setting w/recent ventilation --recently admitted to [facility], discharged 11/02 to [facility]. Was on ventilator while admitted -CXR does not show infiltrate, but pt has had productive cough last 2 weeks and has rhonchi on exam -WBC 12.85 on admission, down from 13.58 3 days ago -Treat with IV vancomycin, Levaquin, and Zosyn for now to cover healthcare acquired infection Bilateral lower extremity edema--improving per pt and family -Doppler ultrasound b/l to r/o DVT ordered -Hold indapamide, which pt had started recently at [facility] due to edema -Lasix 20 mg IV qd, 1 dose now -Wound care nurse consulted for blisters HTN--stable, currently low normal -Reduce atenolol dose as above. Hold if HR less than 60 or SBP less than 100 BPH -Continue Proscar 5 mg PO qd and Flomax 0.4 mg PO qd Recent perforated diverticulitis s/p sigmoid colectomy and colostomy -Consult general surgery. Dr Silver saw in ED, does not require any surgical intervention right now -Continue Riverside 5/325 mg 1 tab PO q4h prn pain -Augmentin held, abx as above -Pt with poor oral intake. Continue Boost TIDM DVT prophylaxis -Hold chemical prophylaxis due to anemia -CHANTALE zamora and SCDs Code Status -Level I, FULL RESUSCITATION STATUS This chart was completed in part utilizing 8hands Speech Voice Recognition software. Attempts were made to minimize the grammatical errors, random word insertions, pronoun errors and incomplete sentences. Any formal questions or concerns about the content, text or information contained within the body of this dictation should be directly addressed to the provider for clarification. Level of Care Telemetry Advanced Directives Existing Living Will: No Existing Power of Plating Engineer: No Resuscitation Status FULL RESUSCITATION VTE Prophylaxis VTE Risk Assessment Done? Y/N: Yes Risk Level: Moderate Given or contraindicated: T.ERitesh Kearney, SCD's Reviewed: Pt Seen/Exam by Me History Physician Subway Operator Supervision Note: I interviewed and examined the patient. Discussed with JUANIS Blount and agree with findings and plan as documented in the note. Any exceptions or clarifications are listed here: Patient is an 81-year-old male with history of recent sigmoid perforation and colectomy with colostomy, who is at [facility] and presented with probable syncope likely vasovagal in nature. Also with active cough 2 weeks and some oozing from his incision site with a gram drop in his hemoglobin. No significant abdominal pain, afebrile, no signs of sepsis, however his white blood cell count remains elevated as well as a thrombocytosis. He's also had significant lower extremity edema worsening in the last 2 days, no calf pain, but with multiple superficial blisters on the legs with no surrounding cellulitis. Vitals reviewed No acute distress, appears cachectic Regular rate and rhythm, no murmurs Rubs Lungs with Mostly Upper Airway Rhonchi, Productive Cough during Interview, No Wheezing Abdomen Positive Blood Stained Dressing That Was Recently Changed, with Scant Dried Blood underneath the Colostomy Bag, Colostomy Bag with Air and Small Amount of Stool Nonbloody, Soft, Nontender, Positive Bowel Sounds Extremities 3+ Pitting Edema to the Thigh Bilaterally with Multiple Ruptured Superficial Blisters without Any Surrounding Cellulitis, 2+ Dorsalis Pedis Pulses Bilaterally -Check Dopplers of the Lower Extremities to Rule Out DVT, but Largely Edema Most Likely Secondary to Fluid Overload from Recent Prolonged Hospital Stay As Well As Hypoalbuminemia and Poor Nutrition -IV Lasix Daily for Diuresis -Check Echo and Monitor on Telemetry -Appreciate General Surgery Consultation and Will Follow for Bleeding from Incision Site, Check CBC Every 6 Hours -We'll Give Broad-Spectrum Antibiotics to Cover for Healthcare Associated Pneumonia Considering He Was on the Ventilator for 24 Hours Plus Was in the Hospital for 8 Days Followed by a Alf Setting. Could Consider Narrowing Back down to Augmentin Plus Levaquin upon Discharge If Improving Documented By: Janel Rascon
--- NOTE | 2016-11-05 13:44 | Pharmacy Progress Note ---
Pharmacy Abx Initial Consult Date of Service Nov 05, 2016. Pharmacy Dosing Scope Date of Consult: 11/05/16 Consultation requested by: Nevin Blount PA-C Pharmacy is consulted to initiate Vancomycin + Zosyn + Levaquin IV dosing therapy, order appropriate labs and adjust drug dose/frequency. Subjective The patient is a 81 year old male admitted on 11/05/16. Objective Height (Feet): 5 Height (Inches): 11.00 Weight (Kilograms): 80.200 Vital Signs (Past 12Hrs) Vital Signs Past 12 Hours Date Time Temp Pulse Resp B/P (MAP) Pulse Ox O2 Delivery O2 Flow Rate FiO2 11/05/16 11:45 93 Room Air 11/05/16 10:29 65 18 104/49 93 Room Air 11/05/16 09:14 94 Room Air 11/05/16 09:08 81 11/05/16 08:31 36.8 71 20 121/82 94 Room Air Lab Results (24Hrs) Laboratory Tests (24 Hours) Test 11/05/16 09:39 Lactic Acid Level 1.2 mmol/L (0.4-2.0) White Blood Count 12.85 K/uL (4.8-10.8) H Red Blood Count 3.23 M/uL (4.7-6.1) L Hemoglobin 8.6 g/dL (14.0-18.0) L Hematocrit 27.3 % (42-52) L Mean Corpuscular Volume 84.5 fL (80-100) Mean Corpuscular Hemoglobin 26.6 pg (25-34) Mean Corpuscular Hemoglobin Concent 31.5 g/dl (32-36) L Platelet Count 715 K/uL (130-400) H Mean Platelet Volume 9.2 fL (7.4-10.4) Neutrophils (%) (Auto) 91.1 % Lymphocytes (%) (Auto) 2.6 % Monocytes (%) (Auto) 5.4 % Eosinophils (%) (Auto) 0.3 % Basophils (%) (Auto) 0.1 % Neutrophils # (Auto) 11.71 K/uL (1.4-6.5) H Lymphocytes # (Auto) 0.33 K/uL (1.2-3.4) L Monocytes # (Auto) 0.70 K/uL (0.11-0.59) H Eosinophils # (Auto) 0.04 K/uL (0-0.5) Basophils # (Auto) 0.01 K/uL (0-0.2) Risk Factors for Resistance * Resident at extended-care facility * Hospitalization for 48 hours or more within the past 90 days * Antimicrobial use within the last 90 days -> Zosyn and Augmentin Assessment & Plan Assessment 81 year old male admitted with perforated diverticulitis, r/o pneumonia ( empiric antibiotics were ordered with indication of pulmonary source) * recent admission to [facility] 10/24-11/02 with perforated sigmoid diverticulitis, s/ p ex-lap Hartmans procedure * pt treated with Zosyn during last admission and discharged to [facility] on Augmentin Plan Empiric treatment with Vancomycin, Zosyn, and Levaquin Vancomycin IV * Loading dose: 2000 mg (25 mg/kg) * Maintenance dose: 1250 mg IV (15.6 mg/kg) every 12 hours * Goal trough level for pnx/intra-abd. : 15 to 20 mcg/mL * Trough level ordered for 11/07/16 Piperacillin/tazobactam * 4.5 g bolus administered over 30 minutes, then 3.375 g IV extended infusion every 8 hours for CrCl greater than 20 mL/min Levaquin IV * 750 mg IV every 24 hours for CrCl >/= 50 ml/min Pharmacy will continue to follow and will adjust dose/frequency as necessary. Thank you.
--- NOTE | 2016-11-05 14:59 | DIAGNOSTIC IMAGING REPORT ---
ULTRASOUND VENOUS DOPPLER LWR EXT BILA CLINICAL HISTORY: lower extremity edema COMPARISON STUDY: No previous studies for comparison. FINDINGS: Real-time and color flow Doppler imaging were performed. Flow was seen within the femoral, popliteal and calf veins with no intraluminal thrombus demonstrated. The saphenous vein is patent. There is a left popliteal cyst measuring 24 x 2 x 49 mm. IMPRESSION: No evidence of lower extremity DVT Electronically signed by: Tom Luong M.D. 11/05/2016 2:58 PM Dictated Date/Time: 11/05/2016 2:57 PM
[2016-11-05] MEDS ORDERED: FUROSEMIDE INJ 20 MG in SYRINGE 0 ML IV ONE (15:30)
[2016-11-05 15:36] LABS: MEAN CELL VOLUME 83.9 fL (80-100); MEAN CORPUSCULAR HEMOGLOBIN 26.6 pg (25-34); MEAN CORPUSCULAR HGB CONC 31.7 g/dl (32-36); PLATELET COUNT 649 K/uL (130-400); RED BLOOD COUNT 2.86 M/uL (4.7-6.1); WHITE BLOOD COUNT 11.63 K/uL (4.8-10.8)
[2016-11-05] MEDS: BOOST PLUS VANILLA PO SCH ×2 (15:50)
[2016-11-05] MEDS ORDERED: ACETAMINOPHEN 325 MG TAB PO ONE (16:00)
[2016-11-05] MEDS ORDERED: FUROSEMIDE INJ 20 MG in SYRINGE 0 ML IV SCH (18:00)
[2016-11-05 20:44] LABS: MEAN CELL VOLUME 83.3 fL (80-100); MEAN CORPUSCULAR HEMOGLOBIN 27.5 pg (25-34); MEAN PLATELET VOLUME 8.8 fL (7.4-10.4); PLATELET COUNT 640 K/uL (130-400); RED BLOOD COUNT 3.24 M/uL (4.7-6.1); WHITE BLOOD COUNT 13.14 K/uL (4.8-10.8)
[2016-11-05] MEDS: DOCUSATE SODIUM 100 MG CAP PO SCH (21:00)
[2016-11-05] MEDS: LEVOFLOXACIN / D5W 750 MG in PREMIXED IN D5W 150 ML IV SCH (21:38)
[2016-11-05] MEDS ORDERED: NURSING VERBAL MED ORDER ONE (22:00)
[2016-11-05] MEDS: PIPERACILL/TAZOBAC IV 3.375 GM in DEXTROSE 5% 100ML 100 ML IV SCH (23:10)
[2016-11-06] VITALS (14 sets, daily range): BP systolic 95–146; BP diastolic 54–70; PULSE 65–78; TEMP 36.6–37.2; O2SAT 92–99
[2016-11-06] MEDS: VANCOMYCIN INJ 1,250 MG in SODIUM CHLORIDE 0.9% 250ML 250 ML IV SCH ×2 (00:41→11:29)
[2016-11-06] MEDS: PIPERACILL/TAZOBAC IV 3.375 GM in DEXTROSE 5% 100ML 100 ML IV SCH ×2 (04:29→11:28)
[2016-11-06 04:41] LABS: HEMATOCRIT 26.9 % (42-52); MEAN CELL VOLUME 85.1 fL (80-100); MEAN CORPUSCULAR HEMOGLOBIN 27.5 pg (25-34); MEAN CORPUSCULAR HGB CONC 32.3 g/dl (32-36); PLATELET COUNT 626 K/uL (130-400); RED BLOOD COUNT 3.16 M/uL (4.7-6.1); WHITE BLOOD COUNT 10.81 K/uL (4.8-10.8)
[2016-11-06 04:57] LABS: BLOOD UREA NITROGEN 11 mg/dl (7-18); BUN/CREATININE RATIO 14.6 (10-20); CALCIUM 9.3 mg/dl (8.5-10.1); CARBON DIOXIDE 33 mmol/L (21-32); CHLORIDE 99 mmol/L (98-107); CREATININE 0.78 mg/dl (0.60-1.40); GLUCOSE 86 mg/dl (70-99); MAGNESIUM 1.9 mg/dl (1.8-2.4); POTASSIUM 3.9 mmol/L (3.5-5.1); SODIUM 136 mmol/L (136-145)
[2016-11-06] MEDS: TAMSULOSIN HCL 0.4 MG CAP PO SCH (07:11)
[2016-11-06] MEDS: DOCUSATE SODIUM 100 MG CAP PO SCH ×2 (07:11→20:53)
[2016-11-06] MEDS: FINASTERIDE 5 MG TAB PO SCH (07:12)
[2016-11-06] MEDS: CEROVITE ADV FORMULA TAB PO SCH (07:12)
[2016-11-06] MEDS: BOOST PLUS VANILLA PO SCH ×6 (07:30→16:26)
[2016-11-06] MEDS ORDERED: POTASSIUM CHLORIDE 10 MEQ TABCR PO STA (07:58)
[2016-11-06] MEDS ORDERED: FUROSEMIDE INJ 20 MG in SYRINGE 0 ML IV SCH (08:15)
[2016-11-06] MEDS ORDERED: POTASSIUM CHLORIDE 20 MEQ TABCR PO ONE (08:15)
[2016-11-06] MEDS: ALBUT/IPRATROP 3MG/0.5MG NEB 3 ML VIAL INH SCH ×4 (08:15→18:56)
[2016-11-06] MEDS ORDERED: ALBUT/IPRATROP 3MG/0.5MG NEB 3 ML VIAL INH PRN (08:30)
--- NOTE | 2016-11-06 08:30 | Surgery Progress Note ---
Surgery Progress Note Date of Service Nov 06, 2016. Subjective feeling well, in chair this AM, tolerated breakfast Objective Vital Signs: Date Time Temp Pulse Resp B/P (MAP) Pulse Ox O2 Delivery O2 Flow Rate FiO2 11/06/16 08:24 94 Nasal Cannula 3.0 11/06/16 07:25 36.6 69 18 146/70 (95) 94 3.0 11/06/16 04:00 99 Nasal Cannula 3.0 11/06/16 03:15 36.9 66 18 136/68 (90) 97 Nasal Cannula 3.0 11/06/16 00:00 99 Nasal Cannula 3.0 11/05/16 23:05 36.4 68 18 138/54 (82) 99 Nasal Cannula 3.0 11/05/16 20:00 90 Nasal Cannula 3.0 11/05/16 19:18 36.9 65 15 115/65 91 11/05/16 18:15 37.0 69 18 130/66 95 11/05/16 17:45 36.9 69 18 131/61 94 11/05/16 17:15 37.0 67 18 127/66 94 11/05/16 17:00 37.0 67 18 131/64 94 11/05/16 16:45 37.1 68 18 131/68 93 11/05/16 16:30 37.1 65 18 132/58 94 11/05/16 16:14 37.3 68 22 132/58 93 11/05/16 13:42 69 18 120/60 96 Room Air 11/05/16 11:45 37.2 69 18 130/67 93 Room Air 11/05/16 10:29 65 18 104/49 93 Room Air 11/05/16 09:14 94 Room Air 11/05/16 09:08 81 11/05/16 08:31 36.8 71 20 121/82 94 Room Air Abdomen: soft Incision(s): clean, dry, ecchymosis, findings (no further bleeding) Laboratory Results: Results Past 24 Hours Test 11/05/16 09:39 11/05/16 15:20 11/05/16 20:33 11/06/16 04:27 Range/Units White Blood Count 12.85 11.63 13.14 10.81 4.8-10.8 K/uL Red Blood Count 3.23 2.86 3.24 3.16 4.7-6.1 M/uL Hemoglobin 8.6 7.6 8.9 8.7 14.0-18.0 g/dL Hematocrit 27.3 24.0 27.0 26.9 42-52 % Mean Corpuscular Volume 84.5 83.9 83.3 85.1 80-100 fL Mean Corpuscular Hemoglobin 26.6 26.6 27.5 27.5 25-34 pg Mean Corpuscular Hemoglobin Concent 31.5 31.7 33.0 32.3 32-36 g/dl Platelet Count 715 649 640 626 130-400 K/uL Mean Platelet Volume 9.2 9.0 8.8 9.0 7.4-10.4 fL Neutrophils (%) (Auto) 91.1 % Lymphocytes (%) (Auto) 2.6 % Monocytes (%) (Auto) 5.4 % Eosinophils (%) (Auto) 0.3 % Basophils (%) (Auto) 0.1 % Neutrophils # (Auto) 11.71 1.4-6.5 K/uL Lymphocytes # (Auto) 0.33 1.2-3.4 K/uL Monocytes # (Auto) 0.70 0.11-0.59 K/uL Eosinophils # (Auto) 0.04 0-0.5 K/uL Basophils # (Auto) 0.01 0-0.2 K/uL RDW Standard Deviation 45.2 45.1 44.3 45.7 36.4-46.3 fL RDW Coefficient of Variation 14.9 15.0 14.9 14.9 11.5-14.5 % Immature Granulocyte % (Auto) 0.5 % Immature Granulocyte # (Auto) 0.06 0.00-0.02 K/uL Ovalocytes 1+ Prothrombin Time 11.5 9.0-12.0 SECONDS Prothromb Time International Ratio 1.1 0.9-1.1 Activated Partial Thromboplast Time 23.1 21.0-31.0 SECONDS Partial Thromboplastin Ratio 0.9 Sodium Level 131 136 136-145 mmol/L Potassium Level 3.8 3.9 3.5-5.1 mmol/L Chloride Level 97 99 98-107 mmol/L Carbon Dioxide Level 30 33 21-32 mmol/L Anion Gap 4.0 4.0 3-11 mmol/L Blood Urea Nitrogen 13 11 7-18 mg/dl Creatinine 0.77 0.78 0.60-1.40 mg/dl Est Creatinine Clear Calc Drug Dose 77.4 76.4 ml/min Estimated GFR () 97.3 96.7 Estimated GFR (Non- 83.9 83.5 BUN/Creatinine Ratio 17.4 14.6 10-20 Random Glucose 110 86 70-99 mg/dl Lactic Acid Level 1.2 0.4-2.0 mmol/L Calcium Level 10.2 9.3 8.5-10.1 mg/dl Magnesium Level 2.1 1.9 1.8-2.4 mg/dl Total Bilirubin 0.3 0.2-1 mg/dl Aspartate Amino Transf (AST/SGOT) 20 15-37 U/L Alanine Aminotransferase (ALT/SGPT) 26 12-78 U/L Alkaline Phosphatase 70 45-117 U/L Troponin I < 0.015 < 0.015 < 0.015 0-0.045 ng/ml Total Protein 5.0 6.4-8.2 gm/dl Albumin 2.0 3.4-5.0 gm/dl Globulin 3.0 2.5-4.0 gm/dl Albumin/Globulin Ratio 0.7 0.9-2 Microbiology Results 11/05/16 Blood Culture, Received Pending 11/05/16 Blood Culture, Received Pending 11/05/16 MRSA DNA Surveillance Screen - Final, Complete Specimen Negative for MRSA by DNA Probe Assessment & Plan syncope/near syncope s/p Edwar's no further bleeding from incision H&H stable would continue binder for now no surgical issues at this time
[2016-11-06] MEDS: FERROUS SULFATE 325 MG TAB PO SCH ×2 (08:36→16:26)
[2016-11-06] MEDS: FUROSEMIDE INJ 20 MG in SYRINGE 0 ML IV SCH (08:36)
[2016-11-06] MEDS: FLUTICASONE/SALMETEROL 250/50 (ADVAIR) 14 PUFF/1 INHALER INH SCH ×2 (08:36→20:54)
[2016-11-06] MEDS: MAGNESIUM OXIDE 400 MG TAB PO SCH (08:36)
[2016-11-06] MEDS: GUAIFENESIN 600 MG TABCR PO SCH ×2 (08:37→20:54)
[2016-11-06] MEDS ORDERED: CEROVITE ADV FORMULA TAB PO SCH (09:00)
--- NOTE | 2016-11-06 09:20 | Hospitalist Progress Note ---
Hospitalist Progress Note Date of Service Nov 06, 2016. (Abril Ribera ., PA-C) Subjective Pt evaluation today including: conversation w/ patient, physical exam, chart review, lab review, review of studies, review of inpatient medication list Voiding: cardona catheter in place (draining clear/yellow urine) Patient states he is feeling well. [place] lightheaded/dizzy yesterday. Denies any events since admission. +decreased appetite- encourage good intake and boost supplement. +non-productive cough- believes it has improved slightly since last admission. Denies SOB Denies fevers/chills +bilateral lower extremity edema- improving since last admission. Patient denies any fever, chills, sweats, lightheadedness, dizziness, vision changes, CP, palpitations, SOB, wheezing, abdominal pain, nausea, vomiting, diarrhea, urinary symptoms, melena, numbness/tingling, weakness, muscle/joint pain, anxiety/depression, active bleeding, or new skin discoloration/changes. (Abril Ribera ., PA-C) Medications Current Inpatient Medications Medications (Trade) Dose Ordered Sig/Andrzej Route Start Time Stop Time Status Last Admin Dose Admin Acetaminophen (Tylenol Tab) 650 mg Q4H PRN PO 11/05/16 12:45 12/05/16 12:44 Al Hydrox/Mg Hydrox/Simethicone (Maalox Max Susp) 15 ml Q4H PRN PO 11/05/16 12:45 12/05/16 12:44 Magnesium Hydroxide (Milk Of Magnesia Susp) 30 ml Q12H PRN PO 11/05/16 12:45 12/05/16 12:44 Ondansetron HCl (Zofran Inj) 4 mg Q6H PRN IV 11/05/16 12:45 12/05/16 12:44 Polyethylene (Miralax Powder Packet) 17 gm DAILY PRN PO 11/05/16 12:45 12/05/16 12:44 Atenolol (Tenormin Tab) 25 mg DAILY PO 11/06/16 09:00 12/06/16 08:59 11/06/16 07:12 25 MG Docusate Sodium (coLACE CAP) 100 mg BID PO 11/05/16 21:00 12/05/16 20:59 11/06/16 07:11 100 MG Finasteride (Proscar Tab) 5 mg DAILY PO 11/06/16 09:00 12/06/16 08:59 11/06/16 07:12 5 MG Acetaminophen/ Hydrocodone Bitart ([place] 5/325 Tab) 1 tab Q4H PRN PO 11/05/16 12:45 11/19/16 12:44 Multivitamins/ Minerals (Multivitamin W/ Minerals Tab) 1 tab DAILY PO 11/06/16 09:00 12/06/16 08:59 11/06/16 07:12 1 TAB Tamsulosin HCl (Flomax Cap) 0.4 mg DAILY PO 11/06/16 09:00 12/06/16 08:59 11/06/16 07:11 0.4 MG Enteral Nutritional Formula (Boost Plus Vanilla) 1 can TIDM PO 11/05/16 16:45 12/05/16 17:59 11/05/16 15:50 1 CAN Furosemide 20 mg/ Syringe 2 ml @ 4 mls/min DAILY IV 11/06/16 09:00 12/06/16 08:59 11/06/16 08:36 4 MLS/MIN Vancomycin HCl 1250 mg/Sodium Chloride 275 ml @ 125 mls/hr Q12H IV 11/06/16 00:00 11/12/16 11:59 11/06/16 11:29 125 MLS/HR Levofloxacin 750 mg/Prmx 150 ml @ 100 mls/hr Q24H IV 11/05/16 16:00 11/12/16 15:59 11/05/16 21:38 100 MLS/HR Piperacillin Sod/ Tazobactam Sod 3.375 gm/Dextrose 115 ml @ 28.75 mls/ hr Q8H IV 11/05/16 20:00 11/12/16 12:59 11/06/16 11:28 28.75 MLS/HR Miscellaneous (Iv Fluids Completed) 1 ea PRN PRN N/A 11/05/16 13:30 11/05/17 13:29 Magnesium Oxide (Mag-Ox Tab) 400 mg QAM PO 11/06/16 09:00 12/06/16 08:59 11/06/16 08:36 400 MG Ferrous Sulfate (Feosol Tab) 325 mg BIDM PO 11/06/16 08:00 12/06/16 07:59 11/06/16 08:36 325 MG Salmeterol Xinafoate/ Fluticasone (Advair Diskus 250/50 Inh) 1 puff BID INH 11/06/16 09:00 12/06/16 08:59 11/06/16 08:36 1 PUFF Guaifenesin (Mucinex Contr Rel Tab) 1,200 mg Q12 PO 11/06/16 09:00 12/06/16 08:59 11/06/16 08:37 1,200 MG Albuterol/ Ipratropium (Duoneb) 3 ml QIDR INH 11/06/16 08:15 12/06/16 08:14 11/06/16 11:11 3 ML Albuterol/ Ipratropium (Duoneb) 3 ml Q2H PRN INH 11/06/16 08:30 12/06/16 08:29 Enteral Nutritional Formula (Boost Plus Vanilla) 1 can TIDM PO 11/06/16 16:45 12/06/16 16:44 UNV (Abril Ribera, PA-C) Objective Vital Signs Date Time Temp Pulse Resp B/P (MAP) Pulse Ox O2 Delivery O2 Flow Rate FiO2 11/06/16 08:24 94 Nasal Cannula 3.0 11/06/16 07:25 36.6 69 18 146/70 (95) 94 3.0 11/06/16 04:00 99 Nasal Cannula 3.0 11/06/16 03:15 36.9 66 18 136/68 (90) 97 Nasal Cannula 3.0 11/06/16 00:00 99 Nasal Cannula 3.0 11/05/16 23:05 36.4 68 18 138/54 (82) 99 Nasal Cannula 3.0 11/05/16 20:00 90 Nasal Cannula 3.0 11/05/16 19:18 36.9 65 15 115/65 91 11/05/16 18:15 37.0 69 18 130/66 95 11/05/16 17:45 36.9 69 18 131/61 94 11/05/16 17:15 37.0 67 18 127/66 94 11/05/16 17:00 37.0 67 18 131/64 94 11/05/16 16:45 37.1 68 18 131/68 93 11/05/16 16:30 37.1 65 18 132/58 94 11/05/16 16:14 37.3 68 22 132/58 93 11/05/16 13:42 69 18 120/60 96 Room Air 11/05/16 11:45 37.2 69 18 130/67 93 Room Air 11/05/16 10:29 65 18 104/49 93 Room Air 11/05/16 09:14 94 Room Air 11/05/16 09:08 81 (Abril Ribera ., PA-C) Physical Exam General Appearance: no apparent distress ENT: hearing grossly normal Neck: supple Respiratory/Chest: no respiratory distress, no accessory muscle use, + decreased breath sounds (bilateral lung bases, R>L), + crackles (throughout all lung doran, >at bases ), + wheezing (slight, occasional expiratory wheeze ) Cardiovascular: regular rate, rhythm Abdomen: normal bowel sounds, non tender, soft, + pertinent finding (LLQ ostomy - abdominal binder on ) Extremities: + swelling (+1 pitting edema of bilateral lower extremities), + pertinent finding (TEDs on ) Neurologic/Psychiatric: alert, normal mood/affect Skin: warm/dry, no rash, + pallor (Abril Ribera ., PA-C) Laboratory Results Last 24 Hours Test 11/05/16 09:39 11/05/16 15:20 11/05/16 20:33 11/06/16 04:27 White Blood Count 12.85 K/uL 11.63 K/uL 13.14 K/uL 10.81 K/uL Red Blood Count 3.23 M/uL 2.86 M/uL 3.24 M/uL 3.16 M/uL Hemoglobin 8.6 g/dL 7.6 g/dL 8.9 g/dL 8.7 g/dL Hematocrit 27.3 % 24.0 % 27.0 % 26.9 % Mean Corpuscular Volume 84.5 fL 83.9 fL 83.3 fL 85.1 fL Mean Corpuscular Hemoglobin 26.6 pg 26.6 pg 27.5 pg 27.5 pg Mean Corpuscular Hemoglobin Concent 31.5 g/dl 31.7 g/dl 33.0 g/dl 32.3 g/dl Platelet Count 715 K/uL 649 K/uL 640 K/uL 626 K/uL Mean Platelet Volume 9.2 fL 9.0 fL 8.8 fL 9.0 fL Neutrophils (%) (Auto) 91.1 % Lymphocytes (%) (Auto) 2.6 % Monocytes (%) (Auto) 5.4 % Eosinophils (%) (Auto) 0.3 % Basophils (%) (Auto) 0.1 % Neutrophils # (Auto) 11.71 K/uL Lymphocytes # (Auto) 0.33 K/uL Monocytes # (Auto) 0.70 K/uL Eosinophils # (Auto) 0.04 K/uL Basophils # (Auto) 0.01 K/uL RDW Standard Deviation 45.2 fL 45.1 fL 44.3 fL 45.7 fL RDW Coefficient of Variation 14.9 % 15.0 % 14.9 % 14.9 % Immature Granulocyte % (Auto) 0.5 % Immature Granulocyte # (Auto) 0.06 K/uL Ovalocytes 1+ Prothrombin Time 11.5 SECONDS Prothromb Time International Ratio 1.1 Activated Partial Thromboplast Time 23.1 SECONDS Partial Thromboplastin Ratio 0.9 Sodium Level 131 mmol/L 136 mmol/L Potassium Level 3.8 mmol/L 3.9 mmol/L Chloride Level 97 mmol/L 99 mmol/L Carbon Dioxide Level 30 mmol/L 33 mmol/L Anion Gap 4.0 mmol/L 4.0 mmol/L Blood Urea Nitrogen 13 mg/dl 11 mg/dl Creatinine 0.77 mg/dl 0.78 mg/dl Est Creatinine Clear Calc Drug Dose 77.4 ml/min 76.4 ml/min Estimated GFR () 97.3 96.7 Estimated GFR (Non- 83.9 83.5 BUN/Creatinine Ratio 17.4 14.6 Random Glucose 110 mg/dl 86 mg/dl Lactic Acid Level 1.2 mmol/L Calcium Level 10.2 mg/dl 9.3 mg/dl Magnesium Level 2.1 mg/dl 1.9 mg/dl Total Bilirubin 0.3 mg/dl Aspartate Amino Transf (AST/SGOT) 20 U/L Alanine Aminotransferase (ALT/SGPT) 26 U/L Alkaline Phosphatase 70 U/L Troponin I < 0.015 ng/ml < 0.015 ng/ml < 0.015 ng/ml Total Protein 5.0 gm/dl Albumin 2.0 gm/dl Globulin 3.0 gm/dl Albumin/Globulin Ratio 0.7 (Abril Ribera, SHILPA) Assessment and Plan 81 y/o male with a history of HTN, BPH, and recent perforated diverticulitis s/ p sigmoid colectomy and colostomy who presented to the ED on 11/05 from [facility] following a syncopal or near syncopal episode. Patient afebrile, VSS. BP was 121/82 on arrival, then dropped to 104/49. Head CT negative for acute findings. CXR shows emphysema but no evidence of consolidation. Trace pleural effusions cannot be excluded. EKG shows no ischemic changes. WBC 12.85. Hgb 8.6. PLT 715. UA positive for occult blood 2+. Syncope/near syncope event, likely secondary to acute blood loss anemia- transfused 1 U PRBCs on 11/05 due to hgb of 7.6 : - Admit to telemetry cardiac monitoring- no acute events - Trended cardiac enzymes x3- negative - Follow H&H- STABLE - Ferrous sulfate supplement 325 mg BID - Atenolol dose decreased to to 25 mg PO daily from 50 mg daily - Hold ASA 81 mg daily Cough, ?secondary to fluid overload vs lower respiratory infection in healthcare setting w/ recent ventilation: - CXR on 11/05- Emphysema. No evidence of focal pulmonary consolidation - Mild leukocytosis- IMPROVING - BCx pending; UA negative - Started IV Vancomycin, Levaquin, and Zosyn on 11/05 -- MRSA swab negative- will d/c Vanco -- Treated w/ IV Zosyn 10/24-11/02, then discharged w/ Augmentin BID x5 days- will d/c Zosyn - DuoNebs QID and q2 hrs PRN - Mucinex 1200 mg BID - O2 protocol, wean as tolerated- does NOT wear supplemental O2 at home - Treating w/ IV Lasix 20 mg daily- will given additional 20 mg IV x1 tonight; hold Lozol 1.25 mg daily - Cardona placed- monitor I&O's and daily weights; weight up ~10kg since admission on 10/24 - ECHO Bilateral lower extremity edema, likely secondary to holding Lozol during last admission- IMPROVING: - Doppler ultrasound b/l- no evidence of DVT - Held Lozol; treating w/ IV Lasix - Wound care consulted HTN- STABLE: Reduced Atenolol dose as above- hold if HR less than 60 or SBP less than 100 BPH: Continue Proscar 5 mg PO qd and Flomax 0.4 mg PO qd Recent perforated diverticulitis s/p sigmoid colectomy and colostomy: - Consulted general surgery, appreciate recommendations -- No intervention required at this time - Continue [place] 5/325 mg 1 tab PO q4h PRN pain - Poor oral intake- continue Boost TID DVT Prophylaxis: Mechanical w/ TEDs/SCDs; chemical means contraindicated due to anemia Code Status: LEVEL I, FULL Dispo: From [facility]- health social work professor consulted - PT/OT evaluations (Abril Ribera ., PAIssaC) Attending Attestation: Pt seen/examined, chart reviewed, care plan d/w JUANIS Ribera. I agree w/ the king components of her documentation. Pt "feeling well" Mild cough but no worse than his last hospital stay (just lingering) LE edema improved Denies any further dizziness or near-syncope VSS BPs low-normal o2 sats acceptable gen - nad neck - no obvious JVD at 90 degrees (pt sitting in chair) heart - RRR, s1, s2, no murmur lungs - wheeze/rhonchi b/l; decreased BS bases with occasional crackle abd - soft, NT, ND, BS+, colostomy in place left abdomen with normal -appearing stool ext - 1-2+ edema b/l - improved from prior hospital stay abd binder in place - incision not examined A/P: 1. acute blood loss anemia 2nd to mild bleeding from incision s/p 1 unit PRBCs start Fe supplementation 2. severe hypoalbuminemia with volume overload (possible acute diastolic CHF) - await echo. lasix 20mg IV x 2 doses today repeat BMP, mag in am IMPROVING 3. dizziness/near-syncope - likely due to #1 above 4. edema - 2nd to #1 - LE dopplers neg for DVT 5. probable underlying COPD with exacerbation - narrow abx to levaquin only; add duonebs; add advair BID; add mucinex defer on systemic steroids unless he fails to improve PT, OT consultations leave on tele Art Todd MD (Art Todd MD)
[2016-11-06 10:35] LABS: HEMATOCRIT 29.8 % (42-52); MEAN CELL VOLUME 84.9 fL (80-100); MEAN CORPUSCULAR HEMOGLOBIN 26.8 pg (25-34); MEAN CORPUSCULAR HGB CONC 31.5 g/dl (32-36); MEAN PLATELET VOLUME 9.1 fL (7.4-10.4); PLATELET COUNT 652 K/uL (130-400); RED BLOOD COUNT 3.51 M/uL (4.7-6.1); WHITE BLOOD COUNT 12.87 K/uL (4.8-10.8)
--- NOTE | 2016-11-06 16:16 | ECHOCARDIOGRAM REPORT ---
*NOTICE TO RECEIVING [employer] This information is strictly Confidential and protected under [place] law. [place] law prohibits you from making any further disclosure of this information unless further disclosure is expressly permitted by the written consent of the person to whom it pertains or is authorized by law. A general authorization for the release of medical or other information is not sufficient for this purpose. Hospital accepts no responsibility if the information is made available to any other person, INCLUDING THE PATIENT. Interpretation Summary * Name: KAMI LABOY JR Study Date: 11/05/2016 03:30 PM BP: 104/49 mmHg * Patient Location: [facility] HR: 65 * : 1935 (M/d/yyyy) Gender: Male Height: 71 in * Age: 81 yrs Ethnicity: [place] Weight: 176 lb * Ordering Physician: Nevin Blount * Referring Physician: Brandin Rush * Performed By: Cata Sweeney RDCS * * Reason For Study: Syncope * BSA: 2.0 m2 * -- Conclusions -- * Left ventricular systolic function is normal. * No regional wall motion abnormalities noted. * Ejection Fraction = 55-60%. * No significant valvular pathology. Procedure Details * The study was technically difficult. * Limited views were obtained. * There were technical limitations due to patient'sPoor acoustic windows secondary to severe lung disease. * The study was technically limited. Left Ventricle * The left ventricle is normal in size. * There is normal left ventricular wall thickness. * Left ventricular systolic function is normal. * Ejection Fraction = 55-60%. * No regional wall motion abnormalities noted. Right Ventricle * The right ventricle is grossly normal size. * The right ventricular systolic function is normal as assessed by tricuspid annular plane systolic excursion (TAPSE) (normal >1.5 cm). Atria * The left atrial size is normal. * Right atrium not well visualized. * There is no evidence of atrial septal defect, but resolution does not allow assessment for a patent foramen ovale. Mitral Valve * The mitral valve is grossly normal. * There is no mitral valve stenosis. * Significant mitral regurgitation is absent. Tricuspid Valve * The tricuspid valve is not well visualized. * Significant tricuspid regurgitation is absent. Aortic Valve * The aortic valve is not well visualized. * The aortic valve opens well. * Aortic valve sclerosis moderate, without significant aortic valvular stenosis. * No aortic regurgitation is present. Pulmonic Valve * The pulmonary valve is not well seen, but the Doppler examination is normal without significant regurgitation or stenosis. Great Vessels * The aortic root is normal size. * The pulmonary is not well visualized. Pericardium/Pleural * There is no pericardial effusion. Great Vessels * The IVC is not well seen. MMode 2D Measurements and Calculations IVSd 0.77 cm LVIDd 4.5 cm LVIDs 3.1 cm LVPWd 0.77 cm IVS/LVPW 1.0 FS 32.7 % EDV(Teich) 94.2 ml ESV(Teich) 36.5 ml EF(Teich) 61.2 % EDV(cubed) 93.3 ml ESV(cubed) 28.4 ml EF(cubed) 69.5 % LV mass(C)d 109.9 grams LV mass(C)dI 55.0 grams/m\S\2 SV(Teich) 57.7 ml SI(Teich) 28.9 ml/m\S\2 SV(cubed) 64.9 ml SI(cubed) 32.5 ml/m\S\2 Ao root diam 3.5 cm Ao root area 9.7 cm\S\2 ACS 1.8 cm LVOT diam 2.0 cm LVOT area 3.1 cm\S\2 Doppler Measurements and Calculations PA V2 max 105.9 cm/sec PA max PG 4.5 mmHg PA acc slope 836.7 cm/sec\S\2 PA acc time 0.10 sec PA pr(Accel) 36.2 mmHg
[2016-11-06] MEDS: LEVOFLOXACIN / D5W 750 MG in PREMIXED IN D5W 150 ML IV SCH (16:26)
[2016-11-06] MEDS ORDERED: FUROSEMIDE INJ 20 MG in SYRINGE 0 ML IV ONE (17:00)
[2016-11-07] VITALS (29 sets, daily range): BP systolic 88–151; BP diastolic 46–68; PULSE 70–92; TEMP 36.4–37.2; O2SAT 18–97
[2016-11-07 06:12] LABS: MEAN CELL VOLUME 83.3 fL (80-100); MEAN CORPUSCULAR HEMOGLOBIN 26.9 pg (25-34); MEAN CORPUSCULAR HGB CONC 32.3 g/dl (32-36); MEAN PLATELET VOLUME 9.3 fL (7.4-10.4); PLATELET COUNT 629 K/uL (130-400); RED BLOOD COUNT 3.12 M/uL (4.7-6.1); WHITE BLOOD COUNT 13.14 K/uL (4.8-10.8)
[2016-11-07 06:56] LABS: BUN/CREATININE RATIO 18.8 (10-20); CALCIUM 9.3 mg/dl (8.5-10.1); CREATININE 0.7 mg/dl (0.60-1.40)
[2016-11-07] MEDS: ALBUT/IPRATROP 3MG/0.5MG NEB 3 ML VIAL INH SCH ×4 (07:10→19:24)
[2016-11-07] MEDS: BOOST PLUS VANILLA PO SCH ×6 (07:24→15:06)
[2016-11-07] MEDS: GUAIFENESIN 600 MG TABCR PO SCH ×2 (07:27→20:22)
[2016-11-07] MEDS: DOCUSATE SODIUM 100 MG CAP PO SCH ×2 (07:27→20:22)
[2016-11-07] MEDS: MAGNESIUM OXIDE 400 MG TAB PO SCH (07:27)
[2016-11-07] MEDS: TAMSULOSIN HCL 0.4 MG CAP PO SCH (07:27)
[2016-11-07] MEDS: FLUTICASONE/SALMETEROL 250/50 (ADVAIR) 14 PUFF/1 INHALER INH SCH ×2 (07:27→20:21)
[2016-11-07] MEDS: FUROSEMIDE INJ 20 MG in SYRINGE 0 ML IV SCH (07:27)
[2016-11-07] MEDS: FERROUS SULFATE 325 MG TAB PO SCH ×2 (07:27→17:17)
[2016-11-07] MEDS: FINASTERIDE 5 MG TAB PO SCH (07:28)
[2016-11-07] MEDS: CEROVITE ADV FORMULA TAB PO SCH (07:28)
[2016-11-07] MEDS ORDERED: POTASSIUM CHLORIDE 20 MEQ TABCR PO ONE (08:00)
--- NOTE | 2016-11-07 09:24 | Clinical Documentation Query ---
EMILIO Huynh : CLINICAL DOCUMENTATION QUERY Patient is an 81 year old male admitted s/p syncopal event at inpatient rehab s/p sigmoid colectomy on October 24. H&P notes "Suspected lower respiratory infection in healthcare setting w/recent mechanical ventilation", initially treated with Vanco, Zosyn, and Levaquin. Antibiotic regimen since reduced to Levaquin only. Subsequent progress note includes "ower respiratory infection in healthcare setting w/ recent ventilation" and "probable underlying COPD with exacerbation". Please clarify as clinically appropriate and to negate the possibility of cpc coder uncertainty at time of discharge. Thank you. In your clinical opinion is this patient being managed for: ( ) (Possible/Suspected/Likely) Gram negative pneumonia ( x ) Other explanation of clinical findings (Please Explain) - likely COPD with exacerbation ( ) Unable to determine (Please Define) ( ) Need to Discuss ( ) Not Agree The medical record reflects the following clinical findings, treatment, and risk factors. Clinical Indicators: As above Treatment: IV Levaquin, nebs, mucinex, advair Risk Factors: Recent hospitalization with mechanical ventilation, inpatient rehabilitation, recent antibiotics Please clarify and document your clinical opinion in the progress notes and discharge summary. Terms such as "probable", "suspected", "likely", "questionable", "possible", or "still to be ruled out" are acceptable. IF IN AGREEMENT, YOU MUST DOCUMENT ABOVE DIAGNOSTIC STATEMENT IN DAILY PROGRESS NOTES AND DISCHARGE SUMMARY. This document is not part of the patient's record. Thank You, Eitan Raman, RN [phone]
--- NOTE | 2016-11-07 09:58 | Surgery Progress Note ---
Surgery Progress Note Date of Service Nov 07, 2016. Subjective Patient laying in bed during examination. No new complaints overnight. Objective Vital Signs: Date Time Temp Pulse Resp B/P (MAP) Pulse Ox O2 Delivery O2 Flow Rate FiO2 11/07/16 08:53 79 103/52 (69) 92 Nasal Cannula 2.0 80 94/49 (64) 76 96/53 (67) 11/07/16 08:19 93 Nasal Cannula 2.0 11/07/16 07:19 36.9 76 18 138/68 (91) 93 2.0 11/07/16 07:11 71 16 92 Nasal Cannula 2.0 11/07/16 04:03 37.1 70 18 125/61 (82) 94 Room Air 11/07/16 04:00 Room Air 11/07/16 00:00 Room Air 11/06/16 23:37 37.1 78 18 111/57 (75) 92 Room Air 11/06/16 20:00 Nasal Cannula 3.0 11/06/16 19:16 36.9 69 16 95/56 (69) 95 Nasal Cannula 2.5 11/06/16 18:56 74 16 94 Nasal Cannula 2.5 11/06/16 16:00 95 Nasal Cannula 3.0 11/06/16 15:23 37.2 65 18 100/54 (69) 95 Nasal Cannula 3.0 11/06/16 15:08 76 16 94 Nasal Cannula 2.0 11/06/16 12:08 94 Nasal Cannula 3.0 11/06/16 11:11 75 16 99 Nasal Cannula 3.0 11/06/16 11:05 36.8 68 18 101/55 (70) 97 3.0 General Appearance: WD/WN, no apparent distress Respiratory/Chest: no respiratory distress Abdomen: non tender, soft Incision(s): clean, no erythema, findings (Minimal drainage on dressing- no active bleeding. Lance still in place. ) Laboratory Results: Results Past 24 Hours Test 11/06/16 10:11 11/07/16 05:03 11/07/16 08:00 Range/Units White Blood Count 12.87 13.14 4.8-10.8 K/uL Red Blood Count 3.51 3.12 4.7-6.1 M/uL Hemoglobin 9.4 8.4 14.0-18.0 g/dL Hematocrit 29.8 26.0 42-52 % Mean Corpuscular Volume 84.9 83.3 80-100 fL Mean Corpuscular Hemoglobin 26.8 26.9 25-34 pg Mean Corpuscular Hemoglobin Concent 31.5 32.3 32-36 g/dl RDW Standard Deviation 46.1 45.9 36.4-46.3 fL RDW Coefficient of Variation 15.2 15.5 11.5-14.5 % Platelet Count 652 629 130-400 K/uL Mean Platelet Volume 9.1 9.3 7.4-10.4 fL Sodium Level 133 136-145 mmol/L Potassium Level 3.0 3.5-5.1 mmol/L Chloride Level 95 98-107 mmol/L Carbon Dioxide Level 31 21-32 mmol/L Anion Gap 7.0 3-11 mmol/L Blood Urea Nitrogen 13 7-18 mg/dl Creatinine 0.70 0.60-1.40 mg/dl Est Creatinine Clear Calc Drug Dose 85.2 ml/min Estimated GFR () 101.2 Estimated GFR (Non- 87.3 BUN/Creatinine Ratio 18.8 10-20 Random Glucose 101 70-99 mg/dl Calcium Level 9.3 8.5-10.1 mg/dl Magnesium Level 2.0 1.8-2.4 mg/dl Stool Occult Blood POSITIVE NEGATIVE Assessment & Plan syncope/near syncope s/p Edwar's Dr. Silver in to see and examine patient. Dressing removed. No active bleeding from incision. Continue abdominal binder. Consult PT- patient was discharged to [facility] after last hospital stay and was doing well, receiving PT/OT, until syncope/near syncope episode. No surgical issues at this time. WiIl continue to follow.
[2016-11-07] MEDS: LEVOFLOXACIN 750 MG TAB PO SCH (11:06)
[2016-11-07] MEDS ORDERED: FUROSEMIDE INJ 20 MG in SYRINGE 0 ML IV SCH (12:00)
[2016-11-07] MEDS ORDERED: POTASSIUM CHLORIDE 20 MEQ TABCR PO SCH (12:00)
--- NOTE | 2016-11-07 12:00 | Hospitalist Progress Note ---
Hospitalist Progress Note Date of Service Nov 07, 2016. (Tess Florian PA-C) Subjective Pt evaluation today including: conversation w/ patient, conversation w/ family , physical exam Pain: None PO Intake: NPO Voiding: no voiding problems The patient was seen and examined this morning. Pt reports feeling good this morning. He does note that when he was up and walked with PT that he felt dizzy and needed to sit back down. He denies lightheadedness now, at rest. He denies any chest palpitations, flutter or sob. He denies that he looks pale in comparison to his usual. Recheck heme + stool. Constitutional: + problem reported (lightheaded when standing/walking with PT), No fever, No chills, No sweats Eyes: No discharge, No problem reported ENT: No trouble swallowing Respiratory: No shortness of breath, No dyspnea on exertion Cardiovascular: No chest pain, No palpitations Abdomen: No pain, No nausea, No vomiting, No diarrhea, No constipation Male : No dysuria Neurologic: No memory loss, No weakness, No numbness/tingling Endo: No fatigue Skin: No rash, No itch (Tess Florian PA-C) Objective Vital Signs Date Time Temp Pulse Resp B/P (MAP) Pulse Ox O2 Delivery O2 Flow Rate FiO2 11/07/16 11:30 79 18 91 Nasal Cannula 2.0 11/07/16 11:29 36.9 76 18 93/50 (64) 97 Nasal Cannula 2.0 11/07/16 08:53 79 103/52 (69) 92 Nasal Cannula 2.0 80 94/49 (64) 76 96/53 (67) 11/07/16 08:19 93 Nasal Cannula 2.0 11/07/16 07:19 36.9 76 18 138/68 (91) 93 2.0 11/07/16 07:11 71 16 92 Nasal Cannula 2.0 11/07/16 04:03 37.1 70 18 125/61 (82) 94 Room Air 11/07/16 04:00 Room Air 11/07/16 00:00 Room Air 11/06/16 23:37 37.1 78 18 111/57 (75) 92 Room Air 11/06/16 20:00 Nasal Cannula 3.0 11/06/16 19:16 36.9 69 16 95/56 (69) 95 Nasal Cannula 2.5 11/06/16 18:56 74 16 94 Nasal Cannula 2.5 11/06/16 16:00 95 Nasal Cannula 3.0 11/06/16 15:23 37.2 65 18 100/54 (69) 95 Nasal Cannula 3.0 11/06/16 15:08 76 16 94 Nasal Cannula 2.0 11/06/16 12:08 94 Nasal Cannula 3.0 (Tess Florian, SAVAGEC) Physical Exam General Appearance: WD/WN, no apparent distress Eyes: PERRL, EOMI ENT: hearing grossly normal, pharynx normal Neck: supple, no JVD Respiratory/Chest: no respiratory distress, no accessory muscle use, + pertinent finding (coarse breath sounds throughout, slightly diminished in all doran. + crackles at baseline. He is on 2 L via NC. ) Cardiovascular: regular rate, rhythm, no JVD, no murmur Abdomen: non tender, soft, + pertinent finding (+ LLQ ostomy, + mid abdominal incision, dressing is seeping/intact. ) Neurologic/Psychiatric: alert, normal mood/affect, oriented x 3 Skin: normal color, warm/dry (Tess Florian, JUANIS-C) Laboratory Results Last 24 Hours Test 11/07/16 05:03 11/07/16 08:00 White Blood Count 13.14 K/uL Red Blood Count 3.12 M/uL Hemoglobin 8.4 g/dL Hematocrit 26.0 % Mean Corpuscular Volume 83.3 fL Mean Corpuscular Hemoglobin 26.9 pg Mean Corpuscular Hemoglobin Concent 32.3 g/dl RDW Standard Deviation 45.9 fL RDW Coefficient of Variation 15.5 % Platelet Count 629 K/uL Mean Platelet Volume 9.3 fL Sodium Level 133 mmol/L Potassium Level 3.0 mmol/L Chloride Level 95 mmol/L Carbon Dioxide Level 31 mmol/L Anion Gap 7.0 mmol/L Blood Urea Nitrogen 13 mg/dl Creatinine 0.70 mg/dl Est Creatinine Clear Calc Drug Dose 85.2 ml/min Estimated GFR () 101.2 Estimated GFR (Non- 87.3 BUN/Creatinine Ratio 18.8 Random Glucose 101 mg/dl Calcium Level 9.3 mg/dl Magnesium Level 2.0 mg/dl Stool Occult Blood POSITIVE (Tess Florian, SHILPA) Assessment and Plan 81 y/o male with a history of HTN, BPH, and recent perforated diverticulitis s/ p sigmoid colectomy and colostomy who presented to the ED on 11/05 from [facility] following a syncopal or near syncopal episode. Patient afebrile, VSS. BP was 121/82 on arrival, then dropped to 104/49. Head CT negative for acute findings. CXR shows emphysema but no evidence of consolidation. Trace pleural effusions cannot be excluded. EKG shows no ischemic changes. WBC 12.85. Hgb 8.6. PLT 715. UA positive for occult blood 2+. Syncope/near syncope event, likely secondary to acute blood loss anemia- transfused 1 U PRBCs on 11/05 due to hgb of 7.6 : - Hgb has dropped again this morning to 8.4, he is lightheaded with standing with PT this morning, and orthostatic, -- will order another 2 U of PRBCs - discussed with Dr. Todd. Recheck Hgb this afternoon. - Trended cardiac enzymes x3- negative - Ferrous sulfate supplement 325 mg BID - Atenolol dose decreased to to 25 mg PO daily from 50 mg daily - Hold ASA 81 mg daily Cough, ?secondary to fluid overload vs lower respiratory infection in healthcare setting w/ recent ventilation: Possible/Suspected/Likely) Gram negative pneumonia - CXR on 11/05- Emphysema. No evidence of focal pulmonary consolidation - Mild leukocytosis- IMPROVING - BCx pending; UA negative -Continue IV Levaquin, and Zosyn on 11/05 -- now off Vanco with neg MRSA swab. -- Treated w/ IV Zosyn 10/24-11/02, then discharged w/ Augmentin BID x5 days - will d/c Zosyn - DuoNebs QID and q2 hrs PRN - Mucinex 1200 mg BID - O2 protocol, wean as tolerated- does NOT wear supplemental O2 at home - Treating w/ IV Lasix 20 mg daily- hold Lozol 1.25 mg daily - Harrison placed- monitor I&O's / daily weights; currently - 4 L with diuresis - ECHO Bilateral lower extremity edema, likely secondary to holding Lozol during last admission- IMPROVING: - Doppler ultrasound b/l- no evidence of DVT - Held Lozol; treating w/ IV Lasix - Wound care consulted - pt has bilateral lower extremity fluid blisters. - Discussed with nursing to place nonstick dressing over these to avoid further abrasion with TEDs. HTN- STABLE: Reduced Atenolol dose as above- hold if HR less than 60 or SBP less than 100 BPH: Continue Proscar 5 mg PO qd and Flomax 0.4 mg PO qd Recent perforated diverticulitis s/p sigmoid colectomy and colostomy: - Consulted general surgery, appreciate recommendations -- No intervention required at this time - Continue [place] 5/325 mg 1 tab PO q4h PRN pain - Poor oral intake- continue Boost TID DVT Prophylaxis: TEDs/SCDs; chemical means contraindicated due to anemia Code Status: FULL CODE Dispo: From [facility]- social welfare research worker consulted, PT/OT evals, possible discharge within ~2 days. (Tess Florian, SHILPA) Attending Attestation: Pt seen/examined, chart reviewed, care plan d/w JUANIS Florian. I agree w/ the king components of her documentation. Pt with +orthostatics and c/o dizziness with standing and ambulation Denies dyspnea Denies abd pain Nursing staff confirm midline incision continues to drain serosanguinous fluid Stool in colostomy bag is brown - no bright red blood or melena VSS BPs low-normal or low with +orthostatics o2 sats acceptable gen - nad neck - no obvious JVD at 90 degrees (pt sitting in chair) heart - RRR, s1, s2, no murmur lungs - crackles improved, wheezes improved abd - soft, NT, ND, BS+, colostomy in place; midline incision with intact moe but with serosanguinous drainage ext - 1-2+ edema - again improved today Na 133 K 3 Cr stable A/P: 1. acute blood loss anemia 2nd to mild bleeding from incision, heme+ stool ( possible), and frequent phlebotomy - in light of low-normal BPs, orthostasis, and dizziness will Tx 2 more units of PRBCs today repeat CBC am lasix in between units 1 and 2 cont Fe supplement 2. severe hypoalbuminemia with volume overload (possible acute diastolic CHF) - echo largely normal overall improved continue gentle diuresis improve his nutritional state 3. dizziness/near-syncope - due to orthostasis. Latter likely due to anemia, 3rd spacing from hypoalbuminemia, etc. 4. edema - 2nd to #1 - LE dopplers neg for DVT; overall improved with lasix 5. probable underlying COPD with exacerbation - cont levaquin, duonebs, advair , mucinex defer on systemic steroids unless he fails to improve 6. midline incision drainage - spoke with surgery - nothing to do at this time 7. hypokalemia - replace 8. hyponatremia - 2nd to diuresis; BMP am PT, OT consultations appreciated leave on tele but maybe med/surg in AM family updated by phone this evening Art Todd MD (Art Todd MD)
--- NOTE | 2016-11-07 12:52 | Clinical Documentation Query ---
Ms. MAZARIEGOSCARLYLE : CLINICAL DOCUMENTATION QUERY Patient is an 81 year old male admitted s/p syncopal event at inpatient rehab s/p sigmoid colectomy on October 24. H&P notes "Suspected lower respiratory infection in healthcare setting w/recent mechanical ventilation", initially treated with Vanco, Zosyn, and Levaquin. Antibiotic regimen since reduced to Levaquin only. Subsequent progress note includes "ower respiratory infection in healthcare setting w/ recent ventilation" and "probable underlying COPD with exacerbation". Please clarify as clinically appropriate and to negate the possibility of rn lactation consultant uncertainty at time of discharge. Thank you. In your clinical opinion is this patient being managed for: ( ) (Possible/Suspected/Likely) Gram negative pneumonia ( x ) Other explanation of clinical findings (Please Explain) - likely COPD with exacerbation; no evidence of pneumonia on imaging - Curtis ARRIETA ( ) Unable to determine (Please Define) ( ) Need to Discuss ( ) Not Agree The medical record reflects the following clinical findings, treatment, and risk factors. Clinical Indicators: As above Treatment: IV Levaquin, nebs, mucinex, advair Risk Factors: Recent hospitalization with mechanical ventilation, inpatient rehabilitation, recent antibiotics Please clarify and document your clinical opinion in the progress notes and discharge summary. Terms such as "probable", "suspected", "likely", "questionable", "possible", or "still to be ruled out" are acceptable. IF IN AGREEMENT, YOU MUST DOCUMENT ABOVE DIAGNOSTIC STATEMENT IN DAILY PROGRESS NOTES AND DISCHARGE SUMMARY. This document is not part of the patient's record. Thank You, Eitan Raman, MOOK [phone]
[2016-11-07] MEDS: PANTOprazole SOD 40 MG TAB PO SCH ×2 (15:05→21:31)
[2016-11-07] MEDS: POTASSIUM CHLORIDE 20 MEQ TABCR PO SCH (20:22)
[2016-11-08] VITALS (18 sets, daily range): BP systolic 83–138; BP diastolic 45–75; PULSE 65–84; TEMP 36.8–37.3; O2SAT 90–96
[2016-11-08 06:20] LABS: HEMATOCRIT 29.2 % (42-52); MEAN CELL VOLUME 83.2 fL (80-100); MEAN CORPUSCULAR HEMOGLOBIN 27.4 pg (25-34); MEAN CORPUSCULAR HGB CONC 32.9 g/dl (32-36); MEAN PLATELET VOLUME 9.3 fL (7.4-10.4); PLATELET COUNT 538 K/uL (130-400); RED BLOOD COUNT 3.51 M/uL (4.7-6.1); WHITE BLOOD COUNT 12.48 K/uL (4.8-10.8)
[2016-11-08] MEDS: ALBUT/IPRATROP 3MG/0.5MG NEB 3 ML VIAL INH SCH ×4 (06:57→19:36)
--- NOTE | 2016-11-08 07:22 | Surgery Progress Note ---
Surgery Progress Note Date of Service Nov 08, 2016. Subjective feeling well from abdominal stanpoint. no new complaints. Objective Vital Signs: Date Time Temp Pulse Resp B/P (MAP) Pulse Ox O2 Delivery O2 Flow Rate FiO2 11/08/16 06:57 83 14 94 Room Air 11/08/16 04:32 37.2 84 18 136/63 (87) 92 Room Air 11/08/16 04:00 Room Air 11/07/16 23:59 Room Air 11/07/16 23:47 37.0 86 18 151/62 (91) 94 Room Air 92 133/64 (87) 85 123/62 (82) 11/07/16 20:00 Room Air 2.0 11/07/16 19:32 37.2 82 16 113/53 (73) 91 Nasal Cannula 2.0 11/07/16 19:24 90 14 91 Nasal Cannula 2.0 11/07/16 18:15 36.9 82 18 96/56 18 2.0 11/07/16 17:15 36.9 78 18 96/56 91 2.0 11/07/16 16:45 37.0 81 18 94/54 90 2.0 11/07/16 16:41 93 Nasal Cannula 2.0 11/07/16 16:15 37.0 84 18 96/54 90 2.0 11/07/16 16:00 37.0 82 18 96/56 92 2.0 11/07/16 15:51 77 18 92 Nasal Cannula 2.0 11/07/16 15:45 36.9 84 18 97/52 91 2.0 11/07/16 15:30 36.9 78 18 93/46 91 2.0 11/07/16 15:22 36.8 85 16 103/55 (71) 92 Nasal Cannula 2.0 11/07/16 15:15 36.8 83 18 94/53 91 2.0 11/07/16 14:00 36.8 80 18 93/56 90 2.0 11/07/16 13:30 36.8 80 18 92/55 91 2.0 11/07/16 13:00 36.7 76 18 89/54 90 2.0 11/07/16 12:45 36.7 76 18 89/54 93 2.0 11/07/16 12:30 36.8 81 18 103/61 92 2.0 11/07/16 12:15 36.8 85 18 103/55 92 2.0 11/07/16 12:09 93 Nasal Cannula 2.0 11/07/16 11:59 36.4 82 18 88/46 96 2.0 11/07/16 11:30 79 18 91 Nasal Cannula 2.0 11/07/16 11:29 36.9 76 18 93/50 (64) 97 Nasal Cannula 2.0 11/07/16 08:53 79 103/52 (69) 92 Nasal Cannula 2.0 80 94/49 (64) 76 96/53 (67) 11/07/16 08:19 93 Nasal Cannula 2.0 General Appearance: no apparent distress Abdomen: non tender, non distended, soft Incision(s): clean, dry, intact, findings (dressing from yesterday still essentially dry/no active bleeding. ) Laboratory Results: Results Past 24 Hours Test 11/07/16 08:00 11/08/16 05:51 Range/Units Stool Occult Blood POSITIVE NEGATIVE White Blood Count 12.48 4.8-10.8 K/uL Red Blood Count 3.51 4.7-6.1 M/uL Hemoglobin 9.6 14.0-18.0 g/dL Hematocrit 29.2 42-52 % Mean Corpuscular Volume 83.2 80-100 fL Mean Corpuscular Hemoglobin 27.4 25-34 pg Mean Corpuscular Hemoglobin Concent 32.9 32-36 g/dl RDW Standard Deviation 45.5 36.4-46.3 fL RDW Coefficient of Variation 15.6 11.5-14.5 % Platelet Count 538 130-400 K/uL Mean Platelet Volume 9.3 7.4-10.4 fL Assessment & Plan no acute surgical issues follow H/H
[2016-11-08 07:29] LABS: BUN/CREATININE RATIO 20.2 (10-20); CALCIUM 9.3 mg/dl (8.5-10.1); CREATININE 0.85 mg/dl (0.60-1.40); POTASSIUM 3.9 mmol/L (3.5-5.1)
[2016-11-08] MEDS: BOOST PLUS VANILLA PO SCH ×6 (07:30→17:46)
[2016-11-08] MEDS: DOCUSATE SODIUM 100 MG CAP PO SCH ×2 (07:35→20:57)
[2016-11-08] MEDS: GUAIFENESIN 600 MG TABCR PO SCH ×2 (07:35→20:56)
[2016-11-08] MEDS: CEROVITE ADV FORMULA TAB PO SCH (07:35)
[2016-11-08] MEDS: FLUTICASONE/SALMETEROL 250/50 (ADVAIR) 14 PUFF/1 INHALER INH SCH ×2 (07:35→20:55)
[2016-11-08] MEDS: FINASTERIDE 5 MG TAB PO SCH (07:35)
[2016-11-08] MEDS: TAMSULOSIN HCL 0.4 MG CAP PO SCH (07:35)
[2016-11-08] MEDS: FERROUS SULFATE 325 MG TAB PO SCH ×2 (07:35→17:45)
[2016-11-08] MEDS: MAGNESIUM OXIDE 400 MG TAB PO SCH (07:35)
[2016-11-08] MEDS: POTASSIUM CHLORIDE 20 MEQ TABCR PO SCH ×2 (07:35→20:57)
[2016-11-08] MEDS: PANTOprazole SOD 40 MG TAB PO SCH (07:36)
[2016-11-08] MEDS: LEVOFLOXACIN 750 MG TAB PO SCH (11:07)
--- NOTE | 2016-11-08 14:02 | Hospitalist Progress Note ---
Hospitalist Progress Note Date of Service Nov 08, 2016. (Tess Florian PA-C) Subjective Pt evaluation today including: conversation w/ patient, physical exam, chart review, lab review, review of studies Pain: None PO Intake: good Voiding: cardona catheter in place The patient was seen and examined this morning. Pt reports doing well. He is tolerating a regular diet without difficulty. Pt reports bowels are moving through the ostomy, and are occasionally dark brown and almost tarry. He denies bright red blood in the ostomy outs. Pt has been ambulating in room. He denies lightheadedness or dizziness today s/p 2 U PRBCs. His hgb increased from 8.4 to 9.6. Additional Comments: ROS: Constitutional: No fever, No chills, No sweats Eyes: No discharge, No problem reported ENT: No trouble swallowing Respiratory: No shortness of breath, No dyspnea on exertion Cardiovascular: No chest pain, No palpitations Abdomen: No pain, No nausea, No vomiting, No diarrhea, No constipation Male : No dysuria Neurologic: No memory loss, No weakness, No numbness/tingling Endo: No fatigue Skin: No rash, No itch (Tess Florian PA-C) Objective Vital Signs Date Time Temp Pulse Resp B/P (MAP) Pulse Ox O2 Delivery O2 Flow Rate FiO2 11/08/16 12:33 36.8 80 104/63 (77) 96 96/54 (68) 83/45 (58) 11/08/16 12:22 96 Room Air 11/08/16 11:24 70 14 95 Room Air 11/08/16 08:39 96 Room Air 11/08/16 07:59 37.0 84 16 138/66 (90) 96 11/08/16 06:57 83 14 94 Room Air 11/08/16 04:32 37.2 84 18 136/63 (87) 92 Room Air 11/08/16 04:00 Room Air 11/07/16 23:59 Room Air 11/07/16 23:47 37.0 86 18 151/62 (91) 94 Room Air 92 133/64 (87) 85 123/62 (82) 11/07/16 20:00 Room Air 2.0 11/07/16 19:32 37.2 82 16 113/53 (73) 91 Nasal Cannula 2.0 11/07/16 19:24 90 14 91 Nasal Cannula 2.0 11/07/16 18:15 36.9 82 18 96/56 18 2.0 11/07/16 17:15 36.9 78 18 96/56 91 2.0 11/07/16 16:45 37.0 81 18 94/54 90 2.0 11/07/16 16:41 93 Nasal Cannula 2.0 11/07/16 16:15 37.0 84 18 96/54 90 2.0 11/07/16 16:00 37.0 82 18 96/56 92 2.0 11/07/16 15:51 77 18 92 Nasal Cannula 2.0 11/07/16 15:45 36.9 84 18 97/52 91 2.0 11/07/16 15:30 36.9 78 18 93/46 91 2.0 11/07/16 15:22 36.8 85 16 103/55 (71) 92 Nasal Cannula 2.0 11/07/16 15:15 36.8 83 18 94/53 91 2.0 11/07/16 14:00 36.8 80 18 93/56 90 2.0 11/07/16 13:30 36.8 80 18 92/55 91 2.0 (Tess Florian PA-C) Physical Exam Notes: General Appearance: WD/WN, no apparent distress Eyes: PERRL, EOMI ENT: hearing grossly normal, pharynx normal Neck: supple, no JVD Respiratory/Chest: no respiratory distress, no accessory muscle use, + pertinent finding (coarse breath in anterior doran, improved aeration in posterior doran and bases, on 2 L via NC. ) Cardiovascular: regular rate, rhythm, no JVD, no murmur Abdomen: non tender, soft, + pertinent finding (+ LLQ ostomy, + mid abdominal incision, dressing is C/D/I ) Neurologic/Psychiatric: alert, normal mood/affect, oriented x 3 Skin: normal color, warm/dry (Tess Florian, PA-C) Laboratory Results Last 24 Hours Test 11/08/16 05:51 White Blood Count 12.48 K/uL Red Blood Count 3.51 M/uL Hemoglobin 9.6 g/dL Hematocrit 29.2 % Mean Corpuscular Volume 83.2 fL Mean Corpuscular Hemoglobin 27.4 pg Mean Corpuscular Hemoglobin Concent 32.9 g/dl RDW Standard Deviation 45.5 fL RDW Coefficient of Variation 15.6 % Platelet Count 538 K/uL Mean Platelet Volume 9.3 fL Sodium Level 134 mmol/L Potassium Level 3.9 mmol/L Chloride Level 98 mmol/L Carbon Dioxide Level 31 mmol/L Anion Gap 5.0 mmol/L Blood Urea Nitrogen 17 mg/dl Creatinine 0.85 mg/dl Est Creatinine Clear Calc Drug Dose 70.1 ml/min Estimated GFR () 93.4 Estimated GFR (Non- 80.6 BUN/Creatinine Ratio 20.2 Random Glucose 107 mg/dl Calcium Level 9.3 mg/dl Magnesium Level 2.0 mg/dl (Tess Florian, SHILPA) Assessment and Plan 81 y/o male with a history of HTN, BPH, and recent perforated diverticulitis s/ p sigmoid colectomy and colostomy who presented to the ED on 11/05 from [facility] following a syncopal or near syncopal episode. Patient afebrile, VSS. BP was 121/82 on arrival, then dropped to 104/49. Head CT negative for acute findings. CXR shows emphysema but no evidence of consolidation. Trace pleural effusions cannot be excluded. EKG shows no ischemic changes. WBC 12.85. Hgb 8.6. PLT 715. UA positive for occult blood 2+. Syncope/near syncope event, likely secondary to acute blood loss anemia - S/p total of 3 U PRBCs: 1 on 11/05 and then another 1 U on 11/07 Hgb - Hgb 9.6 now, only increased 1g with 2 U though - Will consult GI involved to evaluate and determine if there are needs for scope to identify source of bleed , unlikely that incisional site is causing this much hgb drop - Spoke with TERRENCE Charles from GI and is aware of the patient. - Trended cardiac enzymes x3- negative - Ferrous sulfate supplement 325 mg BID - Atenolol dose decreased to 25 mg PO daily from 50 mg daily - Hold ASA 81 mg daily Cough, ?secondary to fluid overload vs lower respiratory infection in healthcare setting w/ recent ventilation: Possible Gram negative pneumonia - CXR on 11/05- Emphysema. No evidence of focal pulmonary consolidation - Mild leukocytosis- IMPROVED - BCx pending; UA negative - Continue Levaquin (day #4), now switched to PO. Initially treated with Zosyn x 2 days and Vanco x2 days but d/c'd with neg MRSA swab. -- Prior to admission was Treated w/ IV Zosyn 10/24-11/02, then discharged w / Augmentin BID x5 days - DuoNebs QID and q2 hrs PRN - Mucinex 1200 mg BID - O2 protocol, wean as tolerated- does NOT wear supplemental O2 at home - Holding Lasix 20 mg daily and Lozol 1.25 mg daily - Cardona placed- monitor I&O's / daily weights; currently - 4 L with diuresis - ECHO Bilateral lower extremity edema, likely secondary to holding Lozol during last admission- improving - Doppler ultrasound b/l- no evidence of DVT - Held Lozol - Wound care consulted - pt has bilateral lower extremity fluid blisters. Continue nonstick dressings HTN- STABLE: Reduced Atenolol dose as above- hold if HR less than 60 or SBP less than 100 BPH: Continue Proscar 5 mg PO qd and Flomax 0.4 mg PO qd Recent perforated diverticulitis s/p sigmoid colectomy and colostomy 10/24/16: - Consulted general surgery, appreciate recommendations -- No intervention required at this time - Continue [place] 5/325 mg 1 tab PO q4h PRN pain - Poor oral intake- continue Boost TID DVT Prophylaxis: TEDs/SCDs; chemical means contraindicated due to anemia Code Status: FULL CODE Dispo: From [facility]- social secretary consulted, PT/OT evals, possible discharge within ~2 days. (Tess Florian PA-C) Attending Attestation: Pt seen/examined, chart reviewed, care plan d/w JUANIS Florian. I agree w/ the king components of her documentation. Pt w/o complaints today No dizziness No cp, sob Cough improved LE edema improved Tele stable overnight EGD tomorrow AM by GI scheduled VSS O2 sats stable in RA gen - nad neck - no obvious JVD at 90 degrees (pt sitting in chair) heart - RRR, s1, s2, no murmur lungs - slight rales bases only, otherwise cta b/l w/o wheeze or rhonchi abd - soft, NT, ND, BS+, colostomy in place left abdomen ext - 1-2+ edema from the shins down but thighs are back to normal Na 134 Cr stable Hb 9.6 A/P: 1. acute blood loss anemia- he is s/p 3 units PRBCs this admission. Despite such his Hb has only risen modestly His stool in the colostomy is heme+ GI consulted; EGD planned for AM Protonix drip in meantime Has had minimal serosanguinous d/c from incision and I agree with surgery this is not the cause of his anemia 2. severe hypoalbuminemia with volume overload (possible acute diastolic CHF) - echo largely normal volume status significantly improved improve his nutritional state hold off on diuretics today due to concern of ongoing GI bleeding repeat albumin in am 3. dizziness/near-syncope - due to orthostasis. Latter likely due to anemia, 3rd spacing from hypoalbuminemia, etc. Symptoms resolved 4. edema - 2nd to #2 - LE dopplers neg for DVT; overall improved with lasix 5. probable underlying COPD with exacerbation - cont levaquin, duonebs, advair , mucinex - improved 6. midline incision drainage - improved, gen surg following 7. hypokalemia - replaced and resolved 8. hyponatremia - stable and improved PT, OT consultations appreciated leave on telemetry dispo - hopefully [facility] at the conclusion of this stay Art Todd MD (Art Todd MD)
--- NOTE | 2016-11-08 14:37 | Gastrointestinal Consultation ---
Gastrointestinal Consultation Date of Consultation: Nov 08, 2016 Attending Physician: Art Sotomayor Consulting Physician: Rich Sosa Reason for Consultation: GI bleed, anemia History of Present Illness Patient is a 81 year old male w PMHx of HTN, BPH, and recent perforated diverticulitis s/p Edwar's procedure by Dr. Silver on 10/24/16 who presented to ED on 11/05/16 from [facility] after a near syncopal episode. He was going to the bathroom when he felt lightheaded and dizzy, denies any falls. Upon evaluation he was noted to be hemodynamically stable, CT head unremarkable. CXR did show emphysematous changes. He was found to be anemic w Hgb in 8s. Previous Hgb 12 during his hospitalized after his perforated diverticulitis, at time of DC on 11/02, it was 9.9. He had been transfused a total of 3U PRBC since admission (1U on 11/05, 2U on 11/07). Hgb staying mid 8s, then today 8-9.6 after 2U yesterday. Pt denies any nirmala blood output from his LLQ ostomy. Ostomy bag usually empties 2x a day, stools may be dark in color, it was tested to be heme positive yesterday. He is tolerating regular consistency diet. Denies any more light headedness, dizziness today. Denies any abd pain, n/v. Been followed by Surgery team who's monitoring his incisional areas, no acute surgical intervention needed at this time. He's never had any endoscopic evaluations in the past. Recently moved from [place] to this area. Past Medical/Surgical History Medical Problems: (1) Anemia Status: Acute (2) Postoperative bleeding from incision Status: Acute (3) Syncope Status: Acute Past Medical History: See HPI Past Surgical History: 10/24 Edwar's procedure for perforated diverticulitis Hx of inguinal hernia repairs Family History Cancer Myocardial infarction Social History Smoking Status: Former Smoker (quit 60 years ago) Drug Use: none Marital Status: Housing Status: other (Was at [facility]) Occupation Status: retired Allergies Coded Allergies: No Known Allergies (Unverified , 11/05/16) Current Medications Home Meds and Scripts Medications Dose Route/Sig Max Daily Dose Days Date Category Docusate Sodium 100 Mg Cap 1 Cap PO BID 11/05/16 Reported Augmentin 875-125 mg (Amoxicillin & Pot Clavulanate) 1 Tab Tab 875 Mg PO BID 11/02/16 Rx [Boost] 1 CAN Liqd 1 Can PO TIDM 11/01/16 Rx [place] 5MG/325MG (Acetaminophen/Hydrocodone Bitart) Tab 1 Tablet PO Q4H PRN 10/31/16 Rx Centrum Adults (Multiple Vitamins W/ Minerals) 1 Tab Tab 1 Tab PO DAILY 10/24/16 Reported Ocuvite Preservision (Multivitamins/Minerals) 1 Tab Tab 1 Tab PO DAILY 10/24/16 Reported Lozol (Indapamide) 1.25 Mg Tab 1.25 Mg PO DAILY 10/24/16 Reported Tenormin (Atenolol) 50 Mg Tab 50 Mg PO DAILY 10/24/16 Reported Aspirin 81 Mg Tab 1 Tab PO DAILY 90 10/24/16 Reported Proscar (Finasteride) 5 Mg Tab 5 Mg PO DAILY 10/24/16 Reported Flomax (Tamsulosin Hcl) 0.4 Mg Cap 0.4 Mg PO DAILY 10/24/16 Reported Review of Systems Constitutional: No fever, No chills Respiratory: No cough, No shortness of breath Abdomen: No pain, No nausea, No vomiting Physical Exam Date Time Temp Pulse Resp B/P (MAP) Pulse Ox O2 Delivery O2 Flow Rate FiO2 11/08/16 12:33 36.8 80 104/63 (77) 96 96/54 (68) 83/45 (58) 11/08/16 12:22 96 Room Air 11/08/16 11:24 70 14 95 Room Air 11/08/16 08:39 96 Room Air 11/08/16 07:59 37.0 84 16 138/66 (90) 96 11/08/16 06:57 83 14 94 Room Air 11/08/16 04:32 37.2 84 18 136/63 (87) 92 Room Air 11/08/16 04:00 Room Air 11/07/16 23:59 Room Air 11/07/16 23:47 37.0 86 18 151/62 (91) 94 Room Air 92 133/64 (87) 85 123/62 (82) 11/07/16 20:00 Room Air 2.0 11/07/16 19:32 37.2 82 16 113/53 (73) 91 Nasal Cannula 2.0 11/07/16 19:24 90 14 91 Nasal Cannula 2.0 11/07/16 18:15 36.9 82 18 96/56 18 2.0 11/07/16 17:15 36.9 78 18 96/56 91 2.0 11/07/16 16:45 37.0 81 18 94/54 90 2.0 11/07/16 16:41 93 Nasal Cannula 2.0 11/07/16 16:15 37.0 84 18 96/54 90 2.0 11/07/16 16:00 37.0 82 18 96/56 92 2.0 11/07/16 15:51 77 18 92 Nasal Cannula 2.0 11/07/16 15:45 36.9 84 18 97/52 91 2.0 11/07/16 15:30 36.9 78 18 93/46 91 2.0 11/07/16 15:22 36.8 85 16 103/55 (71) 92 Nasal Cannula 2.0 11/07/16 15:15 36.8 83 18 94/53 91 2.0 General Appearance: WD/WN, no apparent distress Eyes: normal inspection, PERRL, EOMI Neck: supple, thyroid normal, trachea midline Respiratory/Chest: no accessory muscle use, + rhonchi Cardiovascular: regular rate, rhythm, no gallop, no murmur Abdomen: normal bowel sounds, non tender, soft, + pertinent finding (RLQ ostomy w sticky, tarry stool output) Extremities: + swelling (bilateral LE) Neurologic/Psych: alert, normal mood/affect, oriented x 3 Skin: normal color, no jaundice, no rash Laboratory Results Last 24 Hours Test 11/08/16 05:51 White Blood Count 12.48 K/uL Red Blood Count 3.51 M/uL Hemoglobin 9.6 g/dL Hematocrit 29.2 % Mean Corpuscular Volume 83.2 fL Mean Corpuscular Hemoglobin 27.4 pg Mean Corpuscular Hemoglobin Concent 32.9 g/dl RDW Standard Deviation 45.5 fL RDW Coefficient of Variation 15.6 % Platelet Count 538 K/uL Mean Platelet Volume 9.3 fL Sodium Level 134 mmol/L Potassium Level 3.9 mmol/L Chloride Level 98 mmol/L Carbon Dioxide Level 31 mmol/L Anion Gap 5.0 mmol/L Blood Urea Nitrogen 17 mg/dl Creatinine 0.85 mg/dl Est Creatinine Clear Calc Drug Dose 70.1 ml/min Estimated GFR () 93.4 Estimated GFR (Non- 80.6 BUN/Creatinine Ratio 20.2 Random Glucose 107 mg/dl Calcium Level 9.3 mg/dl Magnesium Level 2.0 mg/dl Impression Patient is a 81 year old male w recent perforated diverticulitis s/p Eagle procedure on 10/24 and discharged to [facility]; admitted for presyncopal episode on 11/05. He was noted to be anemic, Hgb mid 8s, treated w total of 3U PRBC since admission, now Hgb up to 9.6. No nirmala s/s of GI bleeding especially from ostomy site though his stools did test heme positive. He is tolerated regular consistency diet w/o abd pain, n/v. Plan - Monitor H/H and transfuse prn - Protonix 40mg bolus and gtt - Would proceed w EGD eval to r/o PUD given melanotic stool from ostomy output. Pls keep pt NPO after midnight. Would defer endoscopic procedures through his ostomy at this time for risk of colon perforation. I have seen, examined, and agree with the plan as outlined above by TERRENCE Cottrell. -Melena in the ostomy -PPI and NPO after MN -Plan for EGD tomorrow given has eaten today and VSS, if has bleeding acutely will need to call GI telephone service adviser
[2016-11-08] MEDS ORDERED: PANTOprazole INJ 80 MG in DEXTROSE 5% 100ML IV ONE (15:30)
[2016-11-08] MEDS: PANTOprazole INJ 40 MG in DEXTROSE 5% 100ML IV SCH ×2 (15:54→20:55)
[2016-11-08 16:44] LABS: HEMATOCRIT 30.5 % (42-52)
[2016-11-09] VITALS (9 sets, daily range): BP systolic 92–147; BP diastolic 44–72; PULSE 64–72; TEMP 36.5–37; O2SAT 92–100
[2016-11-09] MEDS: PANTOprazole INJ 40 MG in DEXTROSE 5% 100ML IV SCH ×5 (00:59→21:40)
[2016-11-09 06:16] LABS: HEMATOCRIT 29.9 % (42-52); MEAN CELL VOLUME 84.9 fL (80-100); MEAN CORPUSCULAR HEMOGLOBIN 28.1 pg (25-34); MEAN CORPUSCULAR HGB CONC 33.1 g/dl (32-36); PLATELET COUNT 485 K/uL (130-400); RED BLOOD COUNT 3.52 M/uL (4.7-6.1); WHITE BLOOD COUNT 7.95 K/uL (4.8-10.8)
[2016-11-09 06:41] LABS: BUN/CREATININE RATIO 19.1 (10-20); CALCIUM 9.5 mg/dl (8.5-10.1); CREATININE 0.77 mg/dl (0.60-1.40); POTASSIUM 4.2 mmol/L (3.5-5.1)
[2016-11-09 06:44] LABS: ALB/GLOB RATIO 0.7 (0.9-2)
[2016-11-09] MEDS: BOOST PLUS VANILLA PO SCH ×6 (07:13→16:28)
[2016-11-09] MEDS: ALBUT/IPRATROP 3MG/0.5MG NEB 3 ML VIAL INH SCH ×4 (07:32→19:40)
[2016-11-09] MEDS: FERROUS SULFATE 325 MG TAB PO SCH ×2 (08:28→16:28)
[2016-11-09] MEDS: DOCUSATE SODIUM 100 MG CAP PO SCH ×2 (08:28→20:58)
[2016-11-09] MEDS: MAGNESIUM OXIDE 400 MG TAB PO SCH (08:30)
[2016-11-09] MEDS: FLUTICASONE/SALMETEROL 250/50 (ADVAIR) 14 PUFF/1 INHALER INH SCH ×2 (08:30→20:58)
[2016-11-09] MEDS: FINASTERIDE 5 MG TAB PO SCH (08:31)
[2016-11-09] MEDS: TAMSULOSIN HCL 0.4 MG CAP PO SCH (08:31)
[2016-11-09] MEDS: POTASSIUM CHLORIDE 20 MEQ TABCR PO SCH ×2 (08:31→20:58)
[2016-11-09] MEDS: GUAIFENESIN 600 MG TABCR PO SCH ×2 (08:31→20:59)
[2016-11-09] MEDS: CEROVITE ADV FORMULA TAB PO SCH (08:31)
--- NOTE | 2016-11-09 09:17 | Surgery Progress Note ---
Surgery Progress Note Date of Service Nov 09, 2016. Subjective No complaints for EGD today Objective Vital Signs: Date Time Temp Pulse Resp B/P (MAP) Pulse Ox O2 Delivery O2 Flow Rate FiO2 11/09/16 07:32 72 18 94 Room Air 11/09/16 07:16 37.0 69 20 147/72 (97) 100 11/09/16 04:00 Room Air 11/09/16 03:13 36.9 67 18 122/64 (83) 94 Room Air 11/08/16 23:59 Room Air 11/08/16 22:58 65 103/48 (66) 11/08/16 22:57 77 121/62 (81) 11/08/16 22:56 37.1 75 18 120/63 (82) 91 Room Air 11/08/16 20:00 96 Room Air 11/08/16 19:20 74 18 95 Room Air 11/08/16 18:58 72 126/64 (84) 11/08/16 18:56 77 119/69 (86) 11/08/16 18:52 37.3 78 20 126/75 (92) 94 Room Air 11/08/16 16:05 73 14 95 Room Air 11/08/16 16:00 96 Room Air 11/08/16 15:14 37.0 74 20 99/58 (72) 90 Room Air 11/08/16 12:33 36.8 80 104/63 (77) 96 96/54 (68) 83/45 (58) 11/08/16 12:22 96 Room Air 11/08/16 11:24 70 14 95 Room Air Abdomen: non distended, soft Incision(s): drainage (minimal bloody drainage from mid incision) Laboratory Results: Results Past 24 Hours Test 11/08/16 16:25 11/09/16 06:07 Range/Units Hemoglobin 10.0 9.9 14.0-18.0 g/dL Hematocrit 30.5 29.9 42-52 % White Blood Count 7.95 4.8-10.8 K/uL Red Blood Count 3.52 4.7-6.1 M/uL Mean Corpuscular Volume 84.9 80-100 fL Mean Corpuscular Hemoglobin 28.1 25-34 pg Mean Corpuscular Hemoglobin Concent 33.1 32-36 g/dl RDW Standard Deviation 49.0 36.4-46.3 fL RDW Coefficient of Variation 16.0 11.5-14.5 % Platelet Count 485 130-400 K/uL Mean Platelet Volume 9.0 7.4-10.4 fL Sodium Level 133 136-145 mmol/L Potassium Level 4.2 3.5-5.1 mmol/L Chloride Level 101 98-107 mmol/L Carbon Dioxide Level 30 21-32 mmol/L Anion Gap 2.0 3-11 mmol/L Blood Urea Nitrogen 15 7-18 mg/dl Creatinine 0.77 0.60-1.40 mg/dl Est Creatinine Clear Calc Drug Dose 76.9 ml/min Estimated GFR () 97.3 Estimated GFR (Non- 83.9 BUN/Creatinine Ratio 19.1 10-20 Random Glucose 97 70-99 mg/dl Calcium Level 9.5 8.5-10.1 mg/dl Total Bilirubin 0.4 0.2-1 mg/dl Aspartate Amino Transf (AST/SGOT) 12 15-37 U/L Alanine Aminotransferase (ALT/SGPT) 18 12-78 U/L Alkaline Phosphatase 61 45-117 U/L Total Protein 4.5 6.4-8.2 gm/dl Albumin 1.8 3.4-5.0 gm/dl Globulin 2.7 2.5-4.0 gm/dl Albumin/Globulin Ratio 0.7 0.9-2 Assessment & Plan syncope/near syncope s/p Edwar's minimal bleeding from incision EGD today needs to mobilize, consider removing cardona & can transfer to floor per primary
[2016-11-09] MEDS ORDERED: LIDOCAINE HCL 2% 2 ML VIAL (20MG/ML) ONE (11:01)
[2016-11-09] MEDS ORDERED: PROPOFOL IV EMULSION 10 MG/ML 20 ML VIAL IV ONE (11:01)
[2016-11-09] MEDS ORDERED: FENTANYL CITRATE INJ 50 MCG/1 ML 2 ML VIAL ONE (12:17)
--- NOTE | 2016-11-09 12:54 | GI REPORT ---
Procedure Date: 11/09/2016 11:01 AM Procedure: Upper GI endoscopy Indications: Melena Medicines: General Anesthesia Complications: No immediate complications. Estimated blood loss: None. Estimated Blood Loss: Estimated blood loss: None. Estimated blood loss: none. Procedure: Pre-Anesthesia Assessment: - Pre-Anesthesia Assessment: - Prior to the procedure, a History and Physical was performed, and patient medications, allergies and sensitivities were reviewed. The patient's tolerance of previous anesthesia was reviewed. Please see [facility] for complete details. - The risks and benefits of the procedure and the sedation options and risks were discussed with the patient. All questions were answered and informed consent was obtained. - Patient identification and proposed procedure were verified prior to the procedure by the physician and the nurse. The procedure was verified in the pre-procedure area in the procedure room. After obtaining informed consent, the endoscope was passed carefully and meticuously under direct vision and only advanced when the lumen was clearly identified, C02 insuflation was utilized throughout the entirity of the procedure. Throughout the procedure, the patient's blood pressure, pulse, and oxygen saturations were monitored continuously. After obtaining informed consent, the endoscope was passed under direct vision. Throughout the procedure, the patient's blood pressure, pulse, and oxygen saturations were monitored continuously.The upper GI endoscopy was accomplished without difficulty. The patient tolerated the procedure well. The scope was introduced through the mouth, and advanced to the second part of duodenum. Findings: LA Grade D (one or more mucosal breaks involving at least 75% of esophageal circumference) esophagitis with no bleeding was found. Biopsies were taken with a cold forceps for histology. The entire examined stomach was normal. Biopsies were taken with a cold forceps for Helicobacter pylori testing. One non-bleeding, extremely deep, and cratered duodenal ulcer with a clean ulcer base (Gustavo Class III) was found in the duodenal bulb. The lesion was at the apex of the bulb and extended through the sweep towards the second portion of the duodenal and appeared at least 12-14 mm in largest lateral dimension. Impression: - LA Grade D reflux esophagitis. Biopsied. - Normal stomach. Biopsied. - One non-bleeding duodenal ulcer with a clean ulcer base (Gustavo Class III). Recommendation: - [facility]. - Continue IV PPI infusion given size of ulcer for at least overnight - If has evidence of bleeding, then will need surgical vs IR intervention as ulcer is unlikely too big for endsoscopic therapy. - OK for clear liquids today Rich Sosa MD 11/09/2016 12:53:51 PM This report has been signed electronically. Note Initiated On: 11/09/2016 11:01 AM I attest to the content of the Intraoperative Record and orders documented therein, exceptions below
--- NOTE | 2016-11-09 13:07 | Anesthesiology Progress Note ---
Anesthesia Post Op Note Date & Time Nov 09, 2016 at 13:07 Vital Signs Pain Intensity: 0 Vital Signs Past 12 Hours Date Time Temp Pulse Resp B/P (MAP) Pulse Ox O2 Delivery O2 Flow Rate FiO2 11/09/16 13:02 94 Room Air 11/09/16 13:00 73 20 100/59 (73) 96 Nasal Cannula 2 11/09/16 12:45 73 20 102/55 (71) 92 Nasal Cannula 4 11/09/16 09:56 36.6 73 20 133/72 (92) 93 Room Air 11/09/16 09:37 37.0 69 18 147/72 94 Room Air 2.0 11/09/16 08:00 Room Air 11/09/16 07:32 72 18 94 Room Air 11/09/16 07:16 37.0 69 20 147/72 (97) 100 11/09/16 04:00 Room Air 11/09/16 03:13 36.9 67 18 122/64 (83) 94 Room Air Notes Mental Status: alert / awake / arousable, participated in evaluation Pt Amnestic to Procedure: Yes Nausea / Vomiting: adequately controlled Pain: adequately controlled Airway Patency, RR, SpO2: stable & adequate BP & HR: stable & adequate Hydration State: stable & adequate Anesthetic Complications: no major complications apparent
--- NOTE | 2016-11-09 14:17 | Hospitalist Progress Note ---
Hospitalist Progress Note Date of Service Nov 09, 2016. (Tess Florian PA-C) Subjective Pt evaluation today including: conversation w/ patient, physical exam, chart review, lab review, review of studies Pain: None PO Intake: NPO this morning Voiding: cardona catheter in place Pt reports doing well. He denies lightheadedness or dizziness. Nursing reports negative orthostatics this morning. He is scheduled for an upper endoscopy. Pt denies abdominal pain, nausea, vomiting, diarrhea, or dark tarry stools. He has not been walking with PT/OT in the past 2 days, but reports he wants to try. Pts endoscopy was held this morning due to orthostatic BPs until early afternoon. He had an episode of syncope after endoscopy at ~ 13:45. Pts family members state this is similar to preadmission syncopal episode at [facility]. Constitutional: No fever, No chills, No sweats Eyes: No discharge, No diplopia ENT: No sore throat, No trouble swallowing Respiratory: No shortness of breath, No dyspnea at rest Cardiovascular: No chest pain, No edema Abdomen: No pain, No nausea, No vomiting, No diarrhea, No constipation Musculoskeletal: No joint pain, No muscle pain Neurologic: No numbness/tingling Skin: No rash, No itch (Tess Florian PA-C) Objective Vital Signs Date Time Temp Pulse Resp B/P (MAP) Pulse Ox O2 Delivery O2 Flow Rate FiO2 11/09/16 13:43 65 20 131/74 (93) 99 Mask 10 11/09/16 13:38 69 20 149/78 (101) 98 Mask 15 11/09/16 13:25 68 20 169/107 (127) 98 Mask 15 11/09/16 13:15 63 20 107/50 (69) 93 Room Air 11/09/16 13:05 63 20 107/58 (74) 93 Room Air 11/09/16 13:02 94 Room Air 11/09/16 13:00 73 20 100/59 (73) 96 Nasal Cannula 2 11/09/16 12:45 73 20 102/55 (71) 92 Nasal Cannula 4 11/09/16 09:56 36.6 73 20 133/72 (92) 93 Room Air 11/09/16 09:37 37.0 69 18 147/72 94 Room Air 2.0 11/09/16 08:00 Room Air 11/09/16 07:32 72 18 94 Room Air 11/09/16 07:16 37.0 69 20 147/72 (97) 100 11/09/16 04:00 Room Air 11/09/16 03:13 36.9 67 18 122/64 (83) 94 Room Air 11/08/16 23:59 Room Air 11/08/16 22:58 65 103/48 (66) 11/08/16 22:57 77 121/62 (81) 11/08/16 22:56 37.1 75 18 120/63 (82) 91 Room Air 11/08/16 20:00 96 Room Air 11/08/16 19:20 74 18 95 Room Air 11/08/16 18:58 72 126/64 (84) 11/08/16 18:56 77 119/69 (86) 11/08/16 18:52 37.3 78 20 126/75 (92) 94 Room Air 11/08/16 16:05 73 14 95 Room Air 11/08/16 16:00 96 Room Air 11/08/16 15:14 37.0 74 20 99/58 (72) 90 Room Air (Tess Florian PA-C) Physical Exam Notes: General Appearance: WD/WN, no apparent distress Eyes: PERRL, EOMI ENT: hearing grossly normal, pharynx normal Neck: supple, no JVD Respiratory/Chest: no respiratory distress, no accessory muscle use, + pertinent finding (coarse breath in anterior doran, continued improved aeration in posterior doran and bases, on 2 L via NC. ) Cardiovascular: regular rate, rhythm, no JVD, no murmur Abdomen: non tender, soft, + pertinent finding (+ LLQ ostomy, + mid abdominal incision, dressing is C/D/I) Neurologic/Psychiatric: alert, normal mood/affect, oriented x 3 Skin: normal color, warm/dry. + multiple fluid blisters over BLE are covered in dressings which are saturated, removed at bedside with NSS and replaced w nonstick vaseline gauze. Some blisters are popped open, and few a oozing blood when dressing removed. (Tess Florian PA-C) Laboratory Results Last 24 Hours Test 11/08/16 16:25 11/09/16 06:07 Hemoglobin 10.0 g/dL 9.9 g/dL Hematocrit 30.5 % 29.9 % White Blood Count 7.95 K/uL Red Blood Count 3.52 M/uL Mean Corpuscular Volume 84.9 fL Mean Corpuscular Hemoglobin 28.1 pg Mean Corpuscular Hemoglobin Concent 33.1 g/dl RDW Standard Deviation 49.0 fL RDW Coefficient of Variation 16.0 % Platelet Count 485 K/uL Mean Platelet Volume 9.0 fL Sodium Level 133 mmol/L Potassium Level 4.2 mmol/L Chloride Level 101 mmol/L Carbon Dioxide Level 30 mmol/L Anion Gap 2.0 mmol/L Blood Urea Nitrogen 15 mg/dl Creatinine 0.77 mg/dl Est Creatinine Clear Calc Drug Dose 76.9 ml/min Estimated GFR () 97.3 Estimated GFR (Non- 83.9 BUN/Creatinine Ratio 19.1 Random Glucose 97 mg/dl Calcium Level 9.5 mg/dl Total Bilirubin 0.4 mg/dl Aspartate Amino Transf (AST/SGOT) 12 U/L Alanine Aminotransferase (ALT/SGPT) 18 U/L Alkaline Phosphatase 61 U/L Total Protein 4.5 gm/dl Albumin 1.8 gm/dl Globulin 2.7 gm/dl Albumin/Globulin Ratio 0.7 (eTss Florian, SAVAGEC) Assessment and Plan 81 y/o male with a history of HTN, BPH, and recent perforated diverticulitis s/ p sigmoid colectomy and colostomy who presented to the ED on 11/05 from [facility] following a syncopal or near syncopal episode. Patient afebrile, VSS. BP was 121/82 on arrival, then dropped to 104/49. Head CT negative for acute findings. CXR shows emphysema but no evidence of consolidation. Trace pleural effusions cannot be excluded. EKG shows no ischemic changes. WBC 12.85. Hgb 8.6. PLT 715. UA positive for occult blood 2+. Syncope/near syncope event, likely secondary to acute blood loss anemia - S/p total of 3 U PRBCs: 1 on 11/05 and then another 2 U on 11/07 - Hgb stable today at 9.9 - GI on board- upper endoscopy was scheduled for this morning, but then postponed until afternoon due to orthostatics, procedure identified on large nonbleeding duodenal ulcer. After the procedure the pt had an acute syncopal episode which was similar to the one experienced at [facility] upon admission. Recheck CBC and BMP this afternoon May require neuro consultation if no improvement. - Trended cardiac enzymes x3- negative - Ferrous sulfate supplement 325 mg BID - Atenolol dose decreased to 25 mg PO daily from 50 mg daily - Hold ASA 81 mg daily Cough, ?secondary to fluid overload vs lower respiratory infection in healthcare setting w/ recent ventilation: Possible Gram negative pneumonia - CXR on 11/05- Emphysema. No evidence of focal pulmonary consolidation - Mild leukocytosis improved - BCx pending; UA negative - Continue Levaquin (day #5), now switched to PO. Initially treated with Zosyn x 2 days and Vanco x2 days but d/c'd with neg MRSA swab. -- Prior to admission was Treated w/ IV Zosyn 10/24-11/02, then discharged w / Augmentin BID x5 days - DuoNebs QID and q2 hrs PRN - Mucinex 1200 mg BID - O2 protocol, wean as tolerated- does NOT wear supplemental O2 at home - Holding Lasix 20 mg daily and Lozol 1.25 mg daily - Cardona placed- monitor I&O's / daily weights; currently - 4 L with diuresis - ECHO Bilateral lower extremity edema, likely secondary to holding Lozol during last admission- improving - Doppler ultrasound b/l- no evidence of DVT - Held Lozol - Wound care consulted - pt has bilateral lower extremity fluid blisters. Continue nonstick dressings HTN- STABLE: Reduced Atenolol dose as above- hold if HR less than 60 or SBP less than 100 BPH: Continue Proscar 5 mg PO qd and Flomax 0.4 mg PO qd - UA noted to have occult blood at time of admission, will recheck UA as urine appears slightly darker today, and check UCx with repeat syncopal episode. Recent perforated diverticulitis s/p sigmoid colectomy and colostomy 10/24/16: - Consulted general surgery, appreciate recommendations -- No intervention required at this time - Continue [place] 5/325 mg 1 tab PO q4h PRN pain - Poor oral intake- continue Boost TID DVT Prophylaxis: TEDs/SCDs; chemical means contraindicated due to anemia Code Status: FULL CODE Dispo: From [facility]- social service liaison consulted, PT/OT therese (Tess Florian PA-C) JUANIS Physician Supervision Note: I interviewed and examined the patient. Discussed with Tess Florian PAC and agree with findings and plan as documented in the note. Any exceptions or clarifications are listed here: None This patient underwent endoscopy today was found to have a very large duodenal ulcer however he did have a syncopal episode in endoscopy which the family states was similar to the episode that occurred at else out. Repeat laboratories in the afternoon after segment did not show any change the exact etiology of his syncope is yet to be determined considerations could be vasovagal or orthostatic from inappropriate autonomic response Current vital signs are stable The patient is awake and alert he is reasonable memory with some gaps Heart is regular with a systolic murmur lungs are clear without wheezes abdomen soft Syncope of undetermined significance patient was not on the monitor when this occurred to determine whether this would be an arrhythmia will continue to monitor him. Evaluate medications that may affect his blood pressure or ability to respond to changes in position, orthostatics in the morning For his duodenal ulcer he is on a Protonix continuous infusion. Documented By: Wilmer Kramer (Wilmer Kramer M.D.)
[2016-11-09] MEDS: LEVOFLOXACIN 750 MG TAB PO SCH (14:51)
[2016-11-09 15:32] LABS: HEMATOCRIT 31.7 % (42-52); MEAN CELL VOLUME 85.9 fL (80-100); MEAN CORPUSCULAR HEMOGLOBIN 28.2 pg (25-34); MEAN CORPUSCULAR HGB CONC 32.8 g/dl (32-36); MEAN PLATELET VOLUME 8.8 fL (7.4-10.4); PLATELET COUNT 510 K/uL (130-400); RED BLOOD COUNT 3.69 M/uL (4.7-6.1)
[2016-11-09 16:14] LABS: CALCIUM 9.7 mg/dl (8.5-10.1); CREATININE 0.84 mg/dl (0.60-1.40); POTASSIUM 4.4 mmol/L (3.5-5.1)
[2016-11-09 16:15] LABS: BASO % 0.3 %; BASO ABS # 0.03 K/uL (0-0.2); COMPLETE YES; ECHINOCYTES 1+; IG% 0.3 %; LYMPH % 4.5 %; MONO % 8.9 %
[2016-11-09 23:35] LABS: URINE APPEARANCE CLEAR (CLEAR); URINE BILIRUBIN NEG (NEG); URINE COLOR YELLOW; URINE NITRITE NEG (NEG); URINE PH 6.5 (4.5-7.5); URINE SPECIFIC GRAVITY 1.009 (1.000-1.030); UROBILINOGEN NEG (NEG)
[2016-11-09 23:37] LABS: MANUAL MICROSCOPIC REQUIRED? YES; REVIEW REQ? NO
[2016-11-09 23:50] LABS: URINE BACTERIA NEG (NEG); URINE RBC 0-4 /hpf (0-4)
[2016-11-10] VITALS (14 sets, daily range): BP systolic 98–151; BP diastolic 57–76; PULSE 56–77; TEMP 36.6–37; O2SAT 90–99
[2016-11-10] MEDS: PANTOprazole INJ 40 MG in DEXTROSE 5% 100ML IV SCH ×3 (02:54→12:47)
[2016-11-10] MEDS: ALBUT/IPRATROP 3MG/0.5MG NEB 3 ML VIAL INH SCH ×3 (07:14→19:08)
[2016-11-10] MEDS: BOOST PLUS VANILLA PO SCH ×6 (07:30→16:45)
--- NOTE | 2016-11-10 08:38 | Hospitalist Progress Note ---
Hospitalist Progress Note Date of Service Nov 10, 2016. (Tess Florian PA-C) Subjective Pt evaluation today including: conversation w/ patient, physical exam, chart review, lab review, review of studies Pain: None PO Intake: Good Voiding: cardona catheter in place The patient was seen and examined this morning. Pt reports he does not remember the syncopal episode yesterday after EGD. He was not sure of the results from the EGD yesterday, but once reminded about the findings he could recall having a large ulcer. Pt denies any other acute complaints. He has not walked with PT yet. He denies feeling lightheaded or dizziness with sitting at the bedside. Pt was informed of holding atenolol this morning to attempt to improve his pressures. Additional Comments: Constitutional: No fever, No chills, No sweats Eyes: No discharge, No diplopia ENT: No sore throat, No trouble swallowing Respiratory: No shortness of breath, No dyspnea at rest Cardiovascular: No chest pain, No edema Abdomen: No pain, No nausea, No vomiting, No diarrhea, No constipation Musculoskeletal: No joint pain, No muscle pain Neurologic: No numbness/tingling Skin: No rash, No itch (Tess Florian PA-C) Objective Vital Signs Date Time Temp Pulse Resp B/P (MAP) Pulse Ox O2 Delivery O2 Flow Rate FiO2 11/10/16 07:15 36.7 66 20 133/72 (92) 98 Nasal Cannula 11/10/16 07:15 71 16 90 Room Air 11/10/16 04:00 108/62 (77) 98/57 (71) 11/10/16 04:00 92 Room Air 11/10/16 03:47 36.6 56 18 118/64 (82) 92 Room Air 11/10/16 00:00 92 Room Air 11/09/16 23:38 36.5 68 18 113/58 (76) 92 Room Air 11/09/16 20:00 36.6 64 16 115/65 (82) 93 Room Air 66 106/58 (74) 66 92/44 (60) 11/09/16 20:00 93 Room Air 11/09/16 19:40 70 12 95 Room Air 11/09/16 16:00 Room Air 11/09/16 15:56 68 18 100 Room Air 11/09/16 15:13 36.7 64 19 117/66 (83) 98 Nasal Cannula 2.0 11/09/16 14:25 67 20 132/69 (90) 97 Nasal Cannula 2 11/09/16 14:15 64 20 131/69 (89) 97 Nasal Cannula 2 11/09/16 14:05 62 20 135/78 (97) 100 Nasal Cannula 2 11/09/16 13:55 66 20 138/76 (96) 99 Nasal Cannula 5 11/09/16 13:43 65 20 131/74 (93) 99 Mask 10 11/09/16 13:38 69 20 149/78 (101) 98 Mask 15 11/09/16 13:25 68 20 169/107 (127) 98 Mask 15 11/09/16 13:15 63 20 107/50 (69) 93 Room Air 11/09/16 13:05 63 20 107/58 (74) 93 Room Air 11/09/16 13:02 94 Room Air 11/09/16 13:00 73 20 100/59 (73) 96 Nasal Cannula 2 11/09/16 12:45 73 20 102/55 (71) 92 Nasal Cannula 4 11/09/16 09:56 36.6 73 20 133/72 (92) 93 Room Air 11/09/16 09:37 37.0 69 18 147/72 94 Room Air 2.0 (Tess Florian, PAIssaC) Physical Exam Notes: General Appearance: WD/WN, no apparent distress Eyes: PERRL, EOMI ENT: hearing grossly normal, pharynx normal Neck: supple, no JVD Respiratory/Chest: no respiratory distress, no accessory muscle use, + pertinent finding (coarse breath in anterior doran, continued improved aeration in posterior doran and bases, on 2 L via NC. ) Cardiovascular: regular rate, rhythm, no JVD, no murmur Abdomen: non tender, soft, + pertinent finding (+ LLQ ostomy, + mid abdominal incision, dressing is C/D/I) Neurologic/Psychiatric: alert, normal mood/affect, oriented x 3 Skin: normal color, warm/dry. + multiple fluid blisters over BLE are covered in dressings which are saturated, removed at bedside with NSS and replaced w nonstick vaseline gauze. Some blisters are popped open, no oozing blood when dressing removed. Dressing changed. (Tess Florian, SHILPA) Laboratory Results Last 24 Hours Test 11/09/16 15:11 11/09/16 23:17 White Blood Count 8.80 K/uL Red Blood Count 3.69 M/uL Hemoglobin 10.4 g/dL Hematocrit 31.7 % Mean Corpuscular Volume 85.9 fL Mean Corpuscular Hemoglobin 28.2 pg Mean Corpuscular Hemoglobin Concent 32.8 g/dl Platelet Count 510 K/uL Mean Platelet Volume 8.8 fL Neutrophils (%) (Auto) 83.0 % Lymphocytes (%) (Auto) 4.5 % Monocytes (%) (Auto) 8.9 % Eosinophils (%) (Auto) 3.0 % Basophils (%) (Auto) 0.3 % Neutrophils # (Auto) 7.30 K/uL Lymphocytes # (Auto) 0.40 K/uL Monocytes # (Auto) 0.78 K/uL Eosinophils # (Auto) 0.26 K/uL Basophils # (Auto) 0.03 K/uL RDW Standard Deviation 50.2 fL RDW Coefficient of Variation 16.0 % Immature Granulocyte % (Auto) 0.3 % Immature Granulocyte # (Auto) 0.03 K/uL Echinocytes 1+ Sodium Level 136 mmol/L Potassium Level 4.4 mmol/L Chloride Level 100 mmol/L Carbon Dioxide Level 28 mmol/L Anion Gap 8.0 mmol/L Blood Urea Nitrogen 13 mg/dl Creatinine 0.84 mg/dl Est Creatinine Clear Calc Drug Dose 70.5 ml/min Estimated GFR () 93.8 Estimated GFR (Non- 81.0 BUN/Creatinine Ratio 16.0 Random Glucose 96 mg/dl Calcium Level 9.7 mg/dl Urine Color YELLOW Urine Appearance CLEAR Urine pH 6.5 Urine Specific [place] 1.009 Urine Protein NEG Urine Glucose (UA) NEG Urine Ketones NEG Urine Occult Blood 1+ Urine Nitrite NEG Urine Bilirubin NEG Urine Urobilinogen NEG Urine Leukocyte Esterase TRACE Urine WBC (Auto) /hpf Urine RBC (Auto) /hpf Urine Hyaline Casts (Auto) /lpf Urine Epithelial Cells (Auto) /lpf Urine Bacteria (Auto) Urine RBC 0-4 /hpf Urine WBC 1-5 /hpf Urine Epithelial Cells 0-5 /lpf Urine Calcium Oxalate Crystals PRESENT Urine Bacteria NEG (Tess Florian, SHILPA) Assessment and Plan 81 y/o male with a history of HTN, BPH, and recent perforated diverticulitis s/ p sigmoid colectomy and colostomy who presented to the ED on 11/[address] [facility] following a syncopal or near syncopal episode. Patient afebrile, VSS. BP was 121/82 on arrival, then dropped to 104/49. Head CT negative for acute findings. CXR shows emphysema but no evidence of consolidation. Trace pleural effusions cannot be excluded. EKG shows no ischemic changes. WBC 12.85. Hgb 8.6. PLT 715. UA positive for occult blood 2+. Syncope/near syncope event, likely secondary to acute blood loss anemia - S/p total of 3 U PRBCs: 1 on 11/05 and then another 2 U on 11/07 - Hgb stable today at 10.4 - GI on board- upper endoscopy was scheduled for this morning, but then postponed until afternoon due to orthostatics, procedure identified on large nonbleeding duodenal ulcer. After the procedure the pt had an acute syncopal episode which was similar to the one experienced at [facility] upon admission. May require neuro consultation if no improvement. - Trended cardiac enzymes x3- negative - Ferrous sulfate supplement 325 mg BID - Atenolol dose being held this morning, due to syncopal episode on 11/09 after GI procedure, pt has been orthostatic yesterday evening and again this morning. At time of admission it was decreased to 25 mg PO daily from 50 mg daily - Hold ASA 81 mg daily Cough, ?secondary to fluid overload vs lower respiratory infection in healthcare setting w/ recent ventilation: Possible Gram negative pneumonia - CXR on 11/05- Emphysema. No evidence of focal pulmonary consolidation - Mild leukocytosis improved - BCx negative, UA negative - Continue Levaquin (day #6), now switched to PO. Initially treated with Zosyn x 2 days and Vanco x2 days but d/c'd with neg MRSA swab. -- Prior to admission was Treated w/ IV Zosyn 10/24-11/02, then discharged w / Augmentin BID x5 days - DuoNebs QID and q2 hrs PRN - Mucinex 1200 mg BID - O2 protocol, wean as tolerated- does NOT wear supplemental O2 at home - Holding Lasix 20 mg daily and Lozol 1.25 mg daily - Cardona placed- monitor I&O's / daily weights; currently - 4 L with diuresis - ECHO Bilateral lower extremity edema, likely secondary to holding Lozol during last admission- improving - Doppler ultrasound b/l- no evidence of DVT - Held Lozol - Wound care consulted - pt has bilateral lower extremity fluid blisters. Continue nonstick dressings HTN- STABLE: Holding Atenolol completely today as above- hold if HR less than 60 or SBP less than 100 BPH: Continue Proscar 5 mg PO qd and Flomax 0.4 mg PO qd - UA noted to have occult blood at time of admission, will recheck UA has only 1 + blood, but with trace esterase, Culture in process Recent perforated diverticulitis s/p sigmoid colectomy and colostomy 10/24/16: - Consulted general surgery, appreciate recommendations - No intervention required at this time - Continue Rose 5/325 mg 1 tab PO q4h PRN pain - Poor oral intake- continue Boost TID DVT Prophylaxis: TEDs/SCDs; chemical means contraindicated due to anemia Code Status: FULL CODE Dispo: From [facility]- licensed clinical social worker consulted, PT/OT therese (Tess Florian PA-C) PA Physician Supervision Note: I interviewed and examined the patient. Discussed with Tess Florian PAC and agree with findings and plan as documented in the note. Any exceptions or clarifications are listed here: None This patient underwent endoscopy and was found to have a very large duodenal ulcer however syncopal episode in endoscopy which was similar to the episode that occurred at [facility]. vitals in the am show pt to be orthostatic and bradycardic Current vital signs are stable when laying down The patient is more awake and alert Heart is regular with a systolic murmur lungs are clear without wheezes abdomen soft Orthostatic bp, stop atenolol, follow for heart rate to corn picker For his duodenal ulcer he is on a Protonix continuous infusion will transition to po PT/OT Documented By: Wilmer Kramer (Wilmer Kramer M.D.)
[2016-11-10] MEDS: FLUTICASONE/SALMETEROL 250/50 (ADVAIR) 14 PUFF/1 INHALER INH SCH ×2 (09:14→20:30)
[2016-11-10] MEDS: FERROUS SULFATE 325 MG TAB PO SCH ×2 (09:14→18:58)
[2016-11-10] MEDS: DOCUSATE SODIUM 100 MG CAP PO SCH ×2 (09:14→20:30)
[2016-11-10] MEDS: GUAIFENESIN 600 MG TABCR PO SCH ×2 (09:14→20:30)
[2016-11-10] MEDS: POTASSIUM CHLORIDE 20 MEQ TABCR PO SCH ×2 (09:15→20:30)
[2016-11-10] MEDS: MAGNESIUM OXIDE 400 MG TAB PO SCH (09:15)
[2016-11-10] MEDS: CEROVITE ADV FORMULA TAB PO SCH (09:15)
[2016-11-10] MEDS: FINASTERIDE 5 MG TAB PO SCH (09:16)
--- NOTE | 2016-11-10 09:36 | Surgery Progress Note ---
Surgery Progress Note Date of Service Nov 10, 2016. Subjective + feeling well Objective Vital Signs: Date Time Temp Pulse Resp B/P (MAP) Pulse Ox O2 Delivery O2 Flow Rate FiO2 11/10/16 07:15 36.7 66 20 133/72 (92) 98 Nasal Cannula 11/10/16 07:15 71 16 90 Room Air 11/10/16 04:00 108/62 (77) 98/57 (71) 11/10/16 04:00 92 Room Air 11/10/16 03:47 36.6 56 18 118/64 (82) 92 Room Air 11/10/16 00:00 92 Room Air 11/09/16 23:38 36.5 68 18 113/58 (76) 92 Room Air 11/09/16 20:00 36.6 64 16 115/65 (82) 93 Room Air 66 106/58 (74) 66 92/44 (60) 11/09/16 20:00 93 Room Air 11/09/16 19:40 70 12 95 Room Air 11/09/16 16:00 Room Air 11/09/16 15:56 68 18 100 Room Air 11/09/16 15:13 36.7 64 19 117/66 (83) 98 Nasal Cannula 2.0 11/09/16 14:25 67 20 132/69 (90) 97 Nasal Cannula 2 11/09/16 14:15 64 20 131/69 (89) 97 Nasal Cannula 2 11/09/16 14:05 62 20 135/78 (97) 100 Nasal Cannula 2 11/09/16 13:55 66 20 138/76 (96) 99 Nasal Cannula 5 11/09/16 13:43 65 20 131/74 (93) 99 Mask 10 11/09/16 13:38 69 20 149/78 (101) 98 Mask 15 11/09/16 13:25 68 20 169/107 (127) 98 Mask 15 11/09/16 13:15 63 20 107/50 (69) 93 Room Air 11/09/16 13:05 63 20 107/58 (74) 93 Room Air 11/09/16 13:02 94 Room Air 11/09/16 13:00 73 20 100/59 (73) 96 Nasal Cannula 2 11/09/16 12:45 73 20 102/55 (71) 92 Nasal Cannula 4 11/09/16 09:56 36.6 73 20 133/72 (92) 93 Room Air 11/09/16 09:37 37.0 69 18 147/72 94 Room Air 2.0 Abdomen: non distended, soft Incision(s): drainage (minimal) Laboratory Results: Results Past 24 Hours Test 11/09/16 15:11 11/09/16 23:17 Range/Units White Blood Count 8.80 4.8-10.8 K/uL Red Blood Count 3.69 4.7-6.1 M/uL Hemoglobin 10.4 14.0-18.0 g/dL Hematocrit 31.7 42-52 % Mean Corpuscular Volume 85.9 80-100 fL Mean Corpuscular Hemoglobin 28.2 25-34 pg Mean Corpuscular Hemoglobin Concent 32.8 32-36 g/dl Platelet Count 510 130-400 K/uL Mean Platelet Volume 8.8 7.4-10.4 fL Neutrophils (%) (Auto) 83.0 % Lymphocytes (%) (Auto) 4.5 % Monocytes (%) (Auto) 8.9 % Eosinophils (%) (Auto) 3.0 % Basophils (%) (Auto) 0.3 % Neutrophils # (Auto) 7.30 1.4-6.5 K/uL Lymphocytes # (Auto) 0.40 1.2-3.4 K/uL Monocytes # (Auto) 0.78 0.11-0.59 K/uL Eosinophils # (Auto) 0.26 0-0.5 K/uL Basophils # (Auto) 0.03 0-0.2 K/uL RDW Standard Deviation 50.2 36.4-46.3 fL RDW Coefficient of Variation 16.0 11.5-14.5 % Immature Granulocyte % (Auto) 0.3 % Immature Granulocyte # (Auto) 0.03 0.00-0.02 K/uL Echinocytes 1+ Sodium Level 136 136-145 mmol/L Potassium Level 4.4 3.5-5.1 mmol/L Chloride Level 100 98-107 mmol/L Carbon Dioxide Level 28 21-32 mmol/L Anion Gap 8.0 3-11 mmol/L Blood Urea Nitrogen 13 7-18 mg/dl Creatinine 0.84 0.60-1.40 mg/dl Est Creatinine Clear Calc Drug Dose 70.5 ml/min Estimated GFR () 93.8 Estimated GFR (Non- 81.0 BUN/Creatinine Ratio 16.0 10-20 Random Glucose 96 70-99 mg/dl Calcium Level 9.7 8.5-10.1 mg/dl Urine Color YELLOW Urine Appearance CLEAR CLEAR Urine pH 6.5 4.5-7.5 Urine Specific [place] 1.009 1.000-1.030 Urine Protein NEG NEG Urine Glucose (UA) NEG NEG Urine Ketones NEG NEG Urine Occult Blood 1+ NEG Urine Nitrite NEG NEG Urine Bilirubin NEG NEG Urine Urobilinogen NEG NEG Urine Leukocyte Esterase TRACE NEG Urine WBC (Auto) 0-5 /hpf Urine RBC (Auto) 0-4 /hpf Urine Hyaline Casts (Auto) 0-5 /lpf Urine Epithelial Cells (Auto) 0-5 /lpf Urine Bacteria (Auto) NEG Urine RBC 0-4 0-4 /hpf Urine WBC 1-5 0-5 /hpf Urine Epithelial Cells 0-5 0-5 /lpf Urine Calcium Oxalate Crystals PRESENT NONE PRSENT Urine Bacteria NEG NEG Microbiology Results 11/09/16 Urine Culture, Received Pending Assessment & Plan s/p Edwar's syncope/near syncope H&H stable EGD yesterday- nonbleeding ulcer in duodenal bulb will remove moe if he develops bleeding from ulcer, would consider tertiary center for IR
[2016-11-10] MEDS: LEVOFLOXACIN 750 MG TAB PO SCH (12:47)
--- NOTE | 2016-11-10 13:22 | Gastroenterology Progress Note ---
Progress Note Date of Service: Nov 10, 2016 Subjective Pt evaluation today including: conversation w/ patient, physical exam, chart review, lab review, review of studies, review of inpatient medication list Mr. Kumari is an 81 yr old male admitted with anemia, melena EGD yesterday with a large duodenal ulcer and with esophagitis. Today, Hb stable at 10.4,BUN is 13. Ostomy draining dark green thick but not formed stool, no melena or nirmala blood this morning. Review of Systems Constitutional: No fever Respiratory: No cough Cardiac: No chest pain Abdomen: No pain, No nausea, No vomiting, No diarrhea, No constipation Male : No dysuria Neuro: No memory loss Psych: No depression symptoms Heme: No abnormal bleeding/bruising Endo: + fatigue (improving) Medications Current Inpatient Medications Medications (Trade) Dose Ordered Sig/Andrzej Route Start Time Stop Time Status Last Admin Dose Admin Acetaminophen (Tylenol Tab) 650 mg Q4H PRN PO 11/05/16 12:45 12/05/16 12:44 Al Hydrox/Mg Hydrox/Simethicone (Maalox Max Susp) 15 ml Q4H PRN PO 11/05/16 12:45 12/05/16 12:44 Magnesium Hydroxide (Milk Of Magnesia Susp) 30 ml Q12H PRN PO 11/05/16 12:45 12/05/16 12:44 Ondansetron HCl (Zofran Inj) 4 mg Q6H PRN IV 11/05/16 12:45 12/05/16 12:44 Polyethylene (Miralax Powder Packet) 17 gm DAILY PRN PO 11/05/16 12:45 12/05/16 12:44 Atenolol (Tenormin Tab) 25 mg DAILY PO 11/06/16 09:00 12/06/16 08:59 Future Hold 11/09/16 08:30 25 MG Docusate Sodium (coLACE CAP) 100 mg BID PO 11/05/16 21:00 12/05/16 20:59 11/10/16 09:14 100 MG Finasteride (Proscar Tab) 5 mg DAILY PO 11/06/16 09:00 12/06/16 08:59 11/10/16 09:16 5 MG Acetaminophen/ Hydrocodone Bitart ([place] 5/325 Tab) 1 tab Q4H PRN PO 11/05/16 12:45 11/19/16 12:44 11/10/16 10:29 1 TAB Multivitamins/ Minerals (Multivitamin W/ Minerals Tab) 1 tab DAILY PO 11/06/16 09:00 12/06/16 08:59 11/10/16 09:15 1 TAB Tamsulosin HCl (Flomax Cap) 0.4 mg DAILY PO 11/06/16 09:00 12/06/16 08:59 Future Hold 11/09/16 08:31 0.4 MG Furosemide 20 mg/ Syringe 2 ml @ 4 mls/min DAILY IV 11/06/16 09:00 12/06/16 08:59 Future Hold 11/07/16 07:27 4 MLS/MIN Miscellaneous (Iv Fluids Completed) 1 ea PRN PRN N/A 11/05/16 13:30 11/05/17 13:29 Magnesium Oxide (Mag-Ox Tab) 400 mg QAM PO 11/06/16 09:00 12/06/16 08:59 11/10/16 09:15 400 MG Ferrous Sulfate (Feosol Tab) 325 mg BIDM PO 11/06/16 08:00 12/06/16 07:59 11/10/16 09:14 325 MG Salmeterol Xinafoate/ Fluticasone (Advair Diskus 250/50 Inh) 1 puff BID INH 11/06/16 09:00 12/06/16 08:59 11/10/16 09:14 1 PUFF Guaifenesin (Mucinex Contr Rel Tab) 1,200 mg Q12 PO 11/06/16 09:00 12/06/16 08:59 11/10/16 09:14 1,200 MG Albuterol/ Ipratropium (Duoneb) 3 ml QIDR INH 11/06/16 08:15 12/06/16 08:14 11/10/16 11:11 3 ML Albuterol/ Ipratropium (Duoneb) 3 ml Q2H PRN INH 11/06/16 08:30 12/06/16 08:29 Enteral Nutritional Formula (Boost Plus Vanilla) 1 can TIDM PO 11/06/16 16:45 12/06/16 16:44 11/10/16 07:30 1 CAN Levofloxacin (Levaquin Tab) 750 mg DAILY@11 PO 11/07/16 11:00 11/12/26 10:59 11/10/16 12:47 750 MG Potassium Chloride (Klor-Con Tab) 20 meq BID PO 11/07/16 21:00 12/07/16 20:59 11/10/16 09:15 20 MEQ Pantoprazole Sodium 40 mg/ Dextrose 100 ml @ 20 mls/hr Q5H IV 11/08/16 15:44 12/08/16 15:43 11/10/16 12:47 20 MLS/HR Objective Vital Signs Date Time Temp Pulse Resp B/P (MAP) Pulse Ox O2 Delivery O2 Flow Rate FiO2 11/10/16 11:23 36.8 71 20 151/73 (99) 99 Room Air 11/10/16 11:11 67 16 91 Room Air 11/10/16 07:15 36.7 66 20 133/72 (92) 98 Nasal Cannula 11/10/16 07:15 71 16 90 Room Air 11/10/16 04:00 108/62 (77) 98/57 (71) 11/10/16 04:00 92 Room Air 11/10/16 03:47 36.6 56 18 118/64 (82) 92 Room Air 11/10/16 00:00 92 Room Air 11/09/16 23:38 36.5 68 18 113/58 (76) 92 Room Air 11/09/16 20:00 36.6 64 16 115/65 (82) 93 Room Air 66 106/58 (74) 66 92/44 (60) 11/09/16 20:00 93 Room Air 11/09/16 19:40 70 12 95 Room Air 11/09/16 16:00 Room Air 11/09/16 15:56 68 18 100 Room Air 11/09/16 15:13 36.7 64 19 117/66 (83) 98 Nasal Cannula 2.0 11/09/16 14:25 67 20 132/69 (90) 97 Nasal Cannula 2 11/09/16 14:15 64 20 131/69 (89) 97 Nasal Cannula 2 11/09/16 14:05 62 20 135/78 (97) 100 Nasal Cannula 2 11/09/16 13:55 66 20 138/76 (96) 99 Nasal Cannula 5 11/09/16 13:43 65 20 131/74 (93) 99 Mask 10 11/09/16 13:38 69 20 149/78 (101) 98 Mask 15 11/09/16 13:25 68 20 169/107 (127) 98 Mask 15 Physical Exam General Appearance: no apparent distress Neck: thyroid normal, no JVD Respiratory/Chest: lungs clear Cardiovascular: regular rate, rhythm, no JVD, no murmur Abdomen: non tender, soft, + pertinent finding (ileostomy) Extremities: non-tender Neurologic/Psych: alert, normal mood/affect, oriented x 3 Skin: no jaundice Laboratory Results Last 24 Hours Test 11/09/16 15:11 11/09/16 23:17 White Blood Count 8.80 K/uL Red Blood Count 3.69 M/uL Hemoglobin 10.4 g/dL Hematocrit 31.7 % Mean Corpuscular Volume 85.9 fL Mean Corpuscular Hemoglobin 28.2 pg Mean Corpuscular Hemoglobin Concent 32.8 g/dl Platelet Count 510 K/uL Mean Platelet Volume 8.8 fL Neutrophils (%) (Auto) 83.0 % Lymphocytes (%) (Auto) 4.5 % Monocytes (%) (Auto) 8.9 % Eosinophils (%) (Auto) 3.0 % Basophils (%) (Auto) 0.3 % Neutrophils # (Auto) 7.30 K/uL Lymphocytes # (Auto) 0.40 K/uL Monocytes # (Auto) 0.78 K/uL Eosinophils # (Auto) 0.26 K/uL Basophils # (Auto) 0.03 K/uL RDW Standard Deviation 50.2 fL RDW Coefficient of Variation 16.0 % Immature Granulocyte % (Auto) 0.3 % Immature Granulocyte # (Auto) 0.03 K/uL Echinocytes 1+ Sodium Level 136 mmol/L Potassium Level 4.4 mmol/L Chloride Level 100 mmol/L Carbon Dioxide Level 28 mmol/L Anion Gap 8.0 mmol/L Blood Urea Nitrogen 13 mg/dl Creatinine 0.84 mg/dl Est Creatinine Clear Calc Drug Dose 70.5 ml/min Estimated GFR () 93.8 Estimated GFR (Non- 81.0 BUN/Creatinine Ratio 16.0 Random Glucose 96 mg/dl Calcium Level 9.7 mg/dl Urine Color YELLOW Urine Appearance CLEAR Urine pH 6.5 Urine Specific [place] 1.009 Urine Protein NEG Urine Glucose (UA) NEG Urine Ketones NEG Urine Occult Blood 1+ Urine Nitrite NEG Urine Bilirubin NEG Urine Urobilinogen NEG Urine Leukocyte Esterase TRACE Urine WBC (Auto) /hpf Urine RBC (Auto) /hpf Urine Hyaline Casts (Auto) /lpf Urine Epithelial Cells (Auto) /lpf Urine Bacteria (Auto) Urine RBC 0-4 /hpf Urine WBC 1-5 /hpf Urine Epithelial Cells 0-5 /lpf Urine Calcium Oxalate Crystals PRESENT Urine Bacteria NEG Assessment and Plan Mr. Kumari is an 81 yr old male with acute blood loss anemia secondary to esophagitis and a duodenal ulcer. He is hemodynamically stable w/o evidence of continued bleeding on a Protonix drip. Plan: 1. May advance diet to soft/low residual. 2. May change from Protonix drip to po or IV BID. 3. No plan for f/u endoscopy. 4. GI will sign off. Please notify us if new/worsening GI issues. I have seen, examined, and agree with the plan as outlined above by TERRENCE Fuller -ostomy output has decreased -hold octreotide -can give colestipol as is effective -Follow up with colorectal with Garfield [facility]field
[2016-11-10] MEDS: PANTOprazole SOD 40 MG TAB PO SCH (20:30)
[2016-11-11] VITALS (10 sets, daily range): BP systolic 117–151; BP diastolic 58–70; PULSE 72–103; TEMP 36.8–37; O2SAT 90–94
[2016-11-11] MEDS: ALBUT/IPRATROP 3MG/0.5MG NEB 3 ML VIAL INH SCH ×3 (07:20→15:24)
[2016-11-11] MEDS: PANTOprazole SOD 40 MG TAB PO SCH ×2 (08:03→20:57)
[2016-11-11] MEDS: POTASSIUM CHLORIDE 20 MEQ TABCR PO SCH ×2 (08:03→20:58)
[2016-11-11] MEDS: FLUTICASONE/SALMETEROL 250/50 (ADVAIR) 14 PUFF/1 INHALER INH SCH ×2 (08:04→20:57)
[2016-11-11] MEDS: GUAIFENESIN 600 MG TABCR PO SCH ×2 (08:04→20:58)
[2016-11-11] MEDS: FERROUS SULFATE 325 MG TAB PO SCH ×2 (08:04→17:38)
[2016-11-11] MEDS: CEROVITE ADV FORMULA TAB PO SCH (08:04)
[2016-11-11] MEDS: DOCUSATE SODIUM 100 MG CAP PO SCH ×2 (08:04→20:57)
[2016-11-11] MEDS: MAGNESIUM OXIDE 400 MG TAB PO SCH (08:05)
[2016-11-11] MEDS: BOOST PLUS VANILLA PO SCH ×6 (08:05→17:02)
[2016-11-11] MEDS: FINASTERIDE 5 MG TAB PO SCH (08:06)
--- NOTE | 2016-11-11 09:18 | Gastroenterology Progress Note ---
Progress Note Date of Service: Nov 11, 2016 Subjective Pt evaluation today including: conversation w/ patient, physical exam The patient reports that he has no nausea or abdominal pain presently. It appears she's had no further drop in his hemoglobin overnight. Review of Systems Eyes: No eye pain, No redness Respiratory: + problem reported, No cough, No wheezing, No dyspnea at rest Abdomen: No pain, No nausea, No jaundice Medications Current Inpatient Medications Medications (Trade) Dose Ordered Sig/Andrzej Route Start Time Stop Time Status Last Admin Dose Admin Acetaminophen (Tylenol Tab) 650 mg Q4H PRN PO 11/05/16 12:45 12/05/16 12:44 Al Hydrox/Mg Hydrox/Simethicone (Maalox Max Susp) 15 ml Q4H PRN PO 11/05/16 12:45 12/05/16 12:44 Magnesium Hydroxide (Milk Of Magnesia Susp) 30 ml Q12H PRN PO 11/05/16 12:45 12/05/16 12:44 Ondansetron HCl (Zofran Inj) 4 mg Q6H PRN IV 11/05/16 12:45 12/05/16 12:44 Polyethylene (Miralax Powder Packet) 17 gm DAILY PRN PO 11/05/16 12:45 12/05/16 12:44 Atenolol (Tenormin Tab) 25 mg DAILY PO 11/06/16 09:00 12/06/16 08:59 Future Hold 11/09/16 08:30 25 MG Docusate Sodium (coLACE CAP) 100 mg BID PO 11/05/16 21:00 12/05/16 20:59 11/11/16 08:04 100 MG Finasteride (Proscar Tab) 5 mg DAILY PO 11/06/16 09:00 12/06/16 08:59 11/11/16 08:06 5 MG Acetaminophen/ Hydrocodone Bitart ([place] 5/325 Tab) 1 tab Q4H PRN PO 11/05/16 12:45 11/19/16 12:44 11/10/16 10:29 1 TAB Multivitamins/ Minerals (Multivitamin W/ Minerals Tab) 1 tab DAILY PO 11/06/16 09:00 12/06/16 08:59 11/11/16 08:04 1 TAB Tamsulosin HCl (Flomax Cap) 0.4 mg DAILY PO 11/06/16 09:00 12/06/16 08:59 Future Hold 11/09/16 08:31 0.4 MG Furosemide 20 mg/ Syringe 2 ml @ 4 mls/min DAILY IV 11/06/16 09:00 12/06/16 08:59 Future Hold 11/07/16 07:27 4 MLS/MIN Miscellaneous (Iv Fluids Completed) 1 ea PRN PRN N/A 11/05/16 13:30 11/05/17 13:29 Magnesium Oxide (Mag-Ox Tab) 400 mg QAM PO 11/06/16 09:00 12/06/16 08:59 11/11/16 08:05 400 MG Ferrous Sulfate (Feosol Tab) 325 mg BIDM PO 11/06/16 08:00 12/06/16 07:59 11/11/16 08:04 325 MG Salmeterol Xinafoate/ Fluticasone (Advair Diskus 250/50 Inh) 1 puff BID INH 11/06/16 09:00 12/06/16 08:59 11/11/16 08:04 1 PUFF Guaifenesin (Mucinex Contr Rel Tab) 1,200 mg Q12 PO 11/06/16 09:00 12/06/16 08:59 11/11/16 08:04 1,200 MG Albuterol/ Ipratropium (Duoneb) 3 ml QIDR INH 11/06/16 08:15 12/06/16 08:14 11/11/16 07:20 3 ML Albuterol/ Ipratropium (Duoneb) 3 ml Q2H PRN INH 11/06/16 08:30 12/06/16 08:29 Enteral Nutritional Formula (Boost Plus Vanilla) 1 can TIDM PO 11/06/16 16:45 12/06/16 16:44 11/11/16 08:05 1 CAN Levofloxacin (Levaquin Tab) 750 mg DAILY@11 PO 11/07/16 11:00 11/12/26 10:59 11/10/16 12:47 750 MG Potassium Chloride (Klor-Con Tab) 20 meq BID PO 11/07/16 21:00 12/07/16 20:59 11/11/16 08:03 20 MEQ Pantoprazole Sodium (Protonix Tab) 40 mg BID PO 11/10/16 21:00 12/10/16 20:59 11/11/16 08:03 40 MG Objective Vital Signs Date Time Temp Pulse Resp B/P (MAP) Pulse Ox O2 Delivery O2 Flow Rate FiO2 11/11/16 07:20 79 16 92 Room Air 11/11/16 06:57 37.0 75 18 151/69 (96) 92 Room Air 11/11/16 04:00 36.8 72 18 127/62 (83) 94 Room Air 11/11/16 04:00 94 Room Air 11/11/16 00:00 94 Room Air 11/10/16 23:48 37.0 77 20 138/65 (89) 94 Room Air 11/10/16 20:00 Room Air 11/10/16 19:10 65 16 90 Room Air 11/10/16 18:49 36.6 72 19 141/70 (93) 92 Room Air 11/10/16 16:45 71 151/68 (95) 91 Room Air 11/10/16 16:00 Room Air 11/10/16 15:14 114/57 (76) 11/10/16 15:12 125/71 (89) 11/10/16 15:10 36.7 76 19 142/76 (98) 94 Room Air 11/10/16 12:00 Room Air 11/10/16 11:23 36.8 71 20 151/73 (99) 99 Room Air 11/10/16 11:11 67 16 91 Room Air Physical Exam General Appearance: no apparent distress Eyes: PERRL Neck: no JVD Respiratory/Chest: lungs clear Cardiovascular: no murmur Abdomen: soft Neurologic/Psych: alert Skin: no jaundice Assessment and Plan Patient found to have a large duodenal ulcer yesterday during upper endoscopy. Given the size and description from I would suggest continued Protonix drip for another 48 hours. You can advance the patient's diet as tolerated. If there is evidence of rebleeding Dr. sosa felt that the ulcer was not amenable to endoscopic therapy and would therefore suggest referral to a tertiary care center Recomendations Protonix drip for another 48 hours the protonix [address] Sosa to repeat egd in 8 weeks Please call with any additional questions or concerns over the weekend GI coverage to resume on Sunday
--- NOTE | 2016-11-11 10:30 | Hospitalist Progress Note ---
Hospitalist Progress Note Date of Service Nov 11, 2016. (Tess Florian PA-C) Subjective Pt evaluation today including: conversation w/ patient, physical exam, chart review, lab review, review of studies Pain: None PO Intake: Good Voiding: no voiding problems The patient was seen and examined this morning, his granddaughter is present at bedside. He has been tolerating a soft diet without difficulty, outs in ostomy are dark brown/tarry still, likely residual. He denies any other complaints. Wound dressed the wounds on his legs last night. Discussion was held regarding having a wound vac placed, he is in agreement to this. PT/OT has not worked with the patient, will ask them to today. Overnight events: [place] were removed from abdominal incision yesterday and upper part of the wound dehisced, ~ 3-4 cm. Additional Comments: Constitutional: No fever, No chills, No sweats Eyes: No discharge, No diplopia ENT: No sore throat, No trouble swallowing Respiratory: No shortness of breath, No dyspnea at rest Cardiovascular: No chest pain, No edema Abdomen: No pain, No nausea, No vomiting, No diarrhea, No constipation Musculoskeletal: No joint pain, No muscle pain Neurologic: No numbness/tingling Skin: No rash, No itch (Tess Florian PA-C) Objective Vital Signs Date Time Temp Pulse Resp B/P (MAP) Pulse Ox O2 Delivery O2 Flow Rate FiO2 11/11/16 08:00 Room Air 11/11/16 07:20 79 16 92 Room Air 11/11/16 06:57 37.0 75 18 151/69 (96) 92 Room Air 11/11/16 04:00 36.8 72 18 127/62 (83) 94 Room Air 11/11/16 04:00 94 Room Air 11/11/16 00:00 94 Room Air 11/10/16 23:48 37.0 77 20 138/65 (89) 94 Room Air 11/10/16 20:00 Room Air 11/10/16 19:10 65 16 90 Room Air 11/10/16 18:49 36.6 72 19 141/70 (93) 92 Room Air 11/10/16 16:45 71 151/68 (95) 91 Room Air 11/10/16 16:00 Room Air 11/10/16 15:14 114/57 (76) 11/10/16 15:12 125/71 (89) 11/10/16 15:10 36.7 76 19 142/76 (98) 94 Room Air 11/10/16 12:00 Room Air 11/10/16 11:23 36.8 71 20 151/73 (99) 99 Room Air 11/10/16 11:11 67 16 91 Room Air (Tess Florian PA-C) Physical Exam Notes: General Appearance: WD/WN, no apparent distress Eyes: PERRL, EOMI ENT: hearing grossly normal, pharynx normal Neck: supple, no JVD Respiratory/Chest: no respiratory distress, no accessory muscle use, + pertinent finding (coarse breaths in anterior doran and posterior doran, seems the same, on room air ) Cardiovascular: regular rate, rhythm, no JVD, no murmur Abdomen: non tender, soft, + pertinent finding (+ LLQ ostomy, + mid abdominal incision moe removed 11/10, now with dehiscense at top ~ 3-4 cm, packed with guaze, lower part of incision is intact) Neurologic/Psychiatric: alert, normal mood/affect, oriented x 3 Skin: normal color, warm/dry. + multiple fluid blisters over BLE are covered in nonstick vaseline gauze and kerlix, replaced last evening. (Tess Florian, SAVAGEC) Assessment and Plan 81 y/o male with a history of HTN, BPH, and recent perforated diverticulitis s/ p sigmoid colectomy and colostomy who presented to the ED on 11/05 from [facility] following a syncopal or near syncopal episode. Patient afebrile, VSS. BP was 121/82 on arrival, then dropped to 104/49. Head CT negative for acute findings. CXR shows emphysema but no evidence of consolidation. Trace pleural effusions cannot be excluded. EKG shows no ischemic changes. WBC 12.85. Hgb 8.6. PLT 715. UA positive for occult blood 2+. Syncope/near syncope event, likely secondary to acute blood loss anemia - S/p total of 3 U PRBCs: 1 on 11/05 and then another 2 U on 11/07 - Hgb stable - GI on board- upper endoscopy was scheduled for this morning, but then postponed until afternoon due to orthostatics, procedure identified on large nonbleeding duodenal ulcer. After the procedure the pt had an acute syncopal episode which was similar to the one experienced at [facility] upon admission. May require neuro consultation if no improvement. - Trended cardiac enzymes x3- negative - Ferrous sulfate supplement 325 mg BID - Atenolol dose being held due to syncopal episode on 11/09 after GI procedure, pt has been orthostatic yesterday evening and again this morning. At time of admission it was decreased to 25 mg PO daily from 50 mg daily - Hold ASA 81 mg daily Cough, ?secondary to fluid overload vs lower respiratory infection in healthcare setting w/ recent ventilation: Possible Gram negative pneumonia - CXR on 11/05- Emphysema. No evidence of focal pulmonary consolidation - Mild leukocytosis improved - BCx negative, UA negative - Continue Levaquin (day #6), now switched to PO. Initially treated with Zosyn x 2 days and Vanco x2 days but d/c'd with neg MRSA swab. -- Prior to admission was Treated w/ IV Zosyn 10/24-11/02, then discharged w / Augmentin BID x5 days - DuoNebs QID and q2 hrs PRN - Mucinex 1200 mg BID - O2 protocol, wean as tolerated- does NOT wear supplemental O2 at home - Holding Lasix 20 mg daily and Lozol 1.25 mg daily - Harrison placed- monitor I&O's / daily weights; currently - 4 L with diuresis - ECHO Abdominal Wound dehiscence - Abdominal moe removed on 11/10 and superior aspect of incision now open ~ 3 cm down to the fascial plane,- Dr. Hernandez looked at the wound on 11/10 in PM , however does not require surgery at this time. Recommending wound vac. Likely was a hematoma that is now resolve. - Wound vac ordered - Wound consulted for abd dehiscence Bilateral lower extremity edema, likely secondary to holding Lozol during last admission- improving - Doppler ultrasound b/l- no evidence of DVT - Held Lozol - Wound care consulted - pt has bilateral lower extremity fluid blisters. Continue nonstick dressings HTN- STABLE: Holding Atenolol completely since 7/27 - would not resume this at the time of discharge, as it was previously and he represented with syncopal episode from [facility]. Likely can see his PCP once discharged and consider restarting if needed later. BPH: Continue Proscar 5 mg PO qd and Flomax 0.4 mg PO qd - UA noted to have occult blood at time of admission, will recheck UA has only 1 + blood, but with trace esterase, Culture in process Recent perforated diverticulitis s/p sigmoid colectomy and colostomy 10/24/16: - Consulted general surgery, appreciate recommendations - No intervention required at this time - Continue [place] 5/325 mg 1 tab PO q4h PRN pain - Poor oral intake- continue Boost TID DVT Prophylaxis: TEDs/SCDs; chemical means contraindicated due to anemia Code Status: FULL CODE Dispo: From N- social worker delinquency prevention consulted, PT/OT evals (Tess Florian, SHILPA) PA Physician Supervision Note: I interviewed and examined the patient. Discussed with Tess Florian PAC and agree with findings and plan as documented in the note. Any exceptions or clarifications are listed here: None This patient underwent endoscopy and was found to have a very large duodenal ulcer however syncopal episode in endoscopy which was similar to the episode that occurred at [facility]. this proved to be orhtostatic hypotension at least temporarily improved with hydration and stopping atenolol Current vital signs are stable no recurrent symptoms Heart is regular with a systolic murmur lungs are clear without wheezes abdomen on afternoon of 11/10 the pt had a dehiscence of abdominal wound approx 6 cm, this was evaluated by surgery and felt fascia was intact, will now heal by second intent and wound nurse will be consulted Orthostatic bp, improved with stopping atenolol For his duodenal ulcer he is on a Protonix continuous infusion will transition to po wound dehissance will need wound care follow up PT/OT eval for return to rehab Documented By: Wilmer Kramer (Wilmer Kramer M.D.)
[2016-11-11 10:54] LABS: HEMATOCRIT 33.5 % (42-52); MEAN CORPUSCULAR HEMOGLOBIN 27.5 pg (25-34); MEAN CORPUSCULAR HGB CONC 31.6 g/dl (32-36); MEAN PLATELET VOLUME 8.9 fL (7.4-10.4); PLATELET COUNT 450 K/uL (130-400); RED BLOOD COUNT 3.85 M/uL (4.7-6.1); WHITE BLOOD COUNT 9.17 K/uL (4.8-10.8)
[2016-11-11] MEDS: LEVOFLOXACIN 750 MG TAB PO SCH (11:14)
[2016-11-11 11:29] LABS: BASO % 0.3 %; BASO ABS # 0.03 K/uL (0-0.2); COMPLETE YES; EOS % 2.5 %; IG% 0.5 %; LYMPH % 4.9 %; LYMPH ABS # 0.45 K/uL (1.2-3.4); MONO % 8.9 %; NEUT % 82.9 %; OVALOCYTES 1+
[2016-11-11 11:31] LABS: BUN/CREATININE RATIO 10.8 (10-20); CALCIUM 10.3 mg/dl (8.5-10.1); CREATININE 0.81 mg/dl (0.60-1.40); POTASSIUM 4.4 mmol/L (3.5-5.1)
--- NOTE | 2016-11-11 11:35 | Surgery Progress Note ---
Surgery Progress Note Date of Service Nov 11, 2016. Subjective + feeling well, + bowel movement, No complaints, No nausea, No vomiting Objective Vital Signs: Date Time Temp Pulse Resp B/P (MAP) Pulse Ox O2 Delivery O2 Flow Rate FiO2 11/11/16 08:00 Room Air 11/11/16 07:20 79 16 92 Room Air 11/11/16 06:57 37.0 75 18 151/69 (96) 92 Room Air 11/11/16 04:00 36.8 72 18 127/62 (83) 94 Room Air 11/11/16 04:00 94 Room Air 11/11/16 00:00 94 Room Air 11/10/16 23:48 37.0 77 20 138/65 (89) 94 Room Air 11/10/16 20:00 Room Air 11/10/16 19:10 65 16 90 Room Air 11/10/16 18:49 36.6 72 19 141/70 (93) 92 Room Air 11/10/16 16:45 71 151/68 (95) 91 Room Air 11/10/16 16:00 Room Air 11/10/16 15:14 114/57 (76) 11/10/16 15:12 125/71 (89) 11/10/16 15:10 36.7 76 19 142/76 (98) 94 Room Air 11/10/16 12:00 Room Air Abdomen: normal bowel sounds, non tender, non distended, soft Incision(s): clean, no erythema, no drainage Laboratory Results: Results Past 24 Hours Test 11/11/16 10:31 Range/Units White Blood Count 9.17 4.8-10.8 K/uL Red Blood Count 3.85 4.7-6.1 M/uL Hemoglobin 10.6 14.0-18.0 g/dL Hematocrit 33.5 42-52 % Mean Corpuscular Volume 87.0 80-100 fL Mean Corpuscular Hemoglobin 27.5 25-34 pg Mean Corpuscular Hemoglobin Concent 31.6 32-36 g/dl Platelet Count 450 130-400 K/uL Mean Platelet Volume 8.9 7.4-10.4 fL Neutrophils (%) (Auto) 82.9 % Lymphocytes (%) (Auto) 4.9 % Monocytes (%) (Auto) 8.9 % Eosinophils (%) (Auto) 2.5 % Basophils (%) (Auto) 0.3 % Neutrophils # (Auto) 7.59 1.4-6.5 K/uL Lymphocytes # (Auto) 0.45 1.2-3.4 K/uL Monocytes # (Auto) 0.82 0.11-0.59 K/uL Eosinophils # (Auto) 0.23 0-0.5 K/uL Basophils # (Auto) 0.03 0-0.2 K/uL RDW Standard Deviation 51.3 36.4-46.3 fL RDW Coefficient of Variation 16.1 11.5-14.5 % Immature Granulocyte % (Auto) 0.5 % Immature Granulocyte # (Auto) 0.05 0.00-0.02 K/uL Ovalocytes 1+ Sodium Level 136 136-145 mmol/L Potassium Level 4.4 3.5-5.1 mmol/L Chloride Level 104 98-107 mmol/L Carbon Dioxide Level 29 21-32 mmol/L Anion Gap 3.0 3-11 mmol/L Blood Urea Nitrogen 9 7-18 mg/dl Creatinine 0.81 0.60-1.40 mg/dl Est Creatinine Clear Calc Drug Dose 73.5 ml/min Estimated GFR () 95.3 Estimated GFR (Non- 82.2 BUN/Creatinine Ratio 10.8 10-20 Random Glucose 98 70-99 mg/dl Calcium Level 10.3 8.5-10.1 mg/dl Assessment & Plan S/P Eagle procedure Skin portion of wound opened No purulence or bleeding Wound vac ordered Continue dressings until wound vac placed
[2016-11-12] VITALS (13 sets, daily range): BP systolic 115–159; BP diastolic 67–76; PULSE 81–99; TEMP 36.5–37; O2SAT 90–96
[2016-11-12] MEDS: ALBUT/IPRATROP 3MG/0.5MG NEB 3 ML VIAL INH SCH ×4 (07:15→19:20)
[2016-11-12] MEDS: BOOST PLUS VANILLA PO SCH ×8 (08:31→17:49)
[2016-11-12] MEDS: FERROUS SULFATE 325 MG TAB PO SCH ×2 (08:34→17:49)
[2016-11-12] MEDS: DOCUSATE SODIUM 100 MG CAP PO SCH ×2 (08:34→20:47)
[2016-11-12] MEDS: GUAIFENESIN 600 MG TABCR PO SCH ×2 (08:34→20:47)
[2016-11-12] MEDS: MAGNESIUM OXIDE 400 MG TAB PO SCH (08:34)
[2016-11-12] MEDS: FINASTERIDE 5 MG TAB PO SCH (08:35)
[2016-11-12] MEDS: CEROVITE ADV FORMULA TAB PO SCH (08:35)
[2016-11-12] MEDS: PANTOprazole SOD 40 MG TAB PO SCH ×2 (08:35→20:47)
[2016-11-12] MEDS: POTASSIUM CHLORIDE 20 MEQ TABCR PO SCH ×2 (08:36→20:47)
[2016-11-12] MEDS: FLUTICASONE/SALMETEROL 250/50 (ADVAIR) 14 PUFF/1 INHALER INH SCH ×2 (08:36→21:22)
[2016-11-12] MEDS: LEVOFLOXACIN 750 MG TAB PO SCH (08:36)
--- NOTE | 2016-11-12 12:29 | Progress Note ---
Subjective Date of Service: Nov 12, 2016. Subjective Patient is doing well seems less confused he is oriented 2. He has no abdominal pain. He's had no rebound tachycardia nor reoccurrence of his syncope orthostasis since discontinuation of atenolol. Wound care nurses will address his abdominal wound dehiscence. Evaluation for replacement in rehabilitation will occur early next week. Problem List Medical Problems: (1) Anemia Status: Acute (2) Postoperative bleeding from incision Status: Acute (3) Syncope Status: Acute Review of Systems Constitutional: No fever, No chills Respiratory: No shortness of breath Cardiac: No chest pain, No orthopnea, No edema Abdomen: + problem reported (wound dehissence ), No pain, No nausea, No vomiting, No diarrhea Male : No dysuria, No urinary frequency Objective Vital Signs Date Time Temp Pulse Resp B/P (MAP) Pulse Ox O2 Delivery O2 Flow Rate FiO2 11/12/16 11:39 37.0 87 20 138/74 (95) 96 Room Air 11/12/16 11:20 36.5 85 16 90 2.0 11/12/16 11:12 85 16 90 Room Air 11/12/16 08:07 36.5 99 20 129/71 (90) 92 Room Air 11/12/16 08:00 95 Room Air 11/12/16 07:15 85 16 93 Room Air 11/12/16 04:43 37.0 81 16 132/72 (92) 94 11/12/16 04:00 Room Air 11/12/16 00:41 36.9 85 18 134/67 (89) 95 11/12/16 00:00 95 Room Air 11/11/16 20:00 90 149/70 (96) 98 133/64 (87) 103 126/58 (80) 11/11/16 20:00 94 Room Air 11/11/16 19:02 37.0 88 18 146/66 (92) 94 Room Air 11/11/16 16:00 Room Air 11/11/16 15:24 87 16 90 Room Air 11/11/16 15:12 37.0 84 20 122/62 (82) 93 Room Air Physical Exam General Appearance: WD/WN, + mild distress, + thin Respiratory/Chest: chest non-tender, lungs clear, normal breath sounds Cardiovascular: regular rate, rhythm, no murmur Abdomen: normal bowel sounds, soft, + guarding, + tenderness, + pertinent finding (colostomy llq) Extremities: no pedal edema, no calf tenderness Neurologic/Psychiatric: government affairs manager II-XII nml as tested, alert Assessment and Plan 81 y/o M here with acute blood loss anemia from large duodenal ulcer, had orthostatic hypotension and syncope which improved with stopping atenolol, history of HTN, BPH, and recent perforated diverticulitis s/p sigmoid colectomy and colostomy. Developed post op vental abdominal wound dehiscence 11/10 Acute blood loss anemia, S/p 3 u prbc, not clear role anemia played in syncope, certainly blood volume loss worsened orthostasis Endoscopy showed large non bleeding duodenal ulcer, GI recommends Bid PPI Orthostatic syncope, - Atenolol stopped due to syncopal episode on 11/09 after GI procedure, Cough, baseline copd, complete course of treatment of previous pneumonia, Mucinex 1200 mg BID - DuoNebs QID and q2 hrs PRN - O2 protocol, wean as tolerated- does NOT wear supplemental O2 at home Abdominal Wound dehiscence Dr. Hernandez looked at the wound on 11/10 in PM, . Recommending wound consult for recommendations, currently Dry Sterile Dressing Bilateral lower extremity edema- Doppler ultrasound b/l- no evidence of DVT BPH: Continue Proscar 5 mg PO qd and Flomax 0.4 mg PO qd attempt to remove cardona prior to discharge Recent perforated diverticulitis s/p sigmoid colectomy and colostomy 10/24/16: - Consulted general surgery, appreciate recommendations DVT Prophylaxis: TEDs/SCDs; chemical means contraindicated due to anemia Code Status: FULL CODE Dispo: From N- director social welfare consulted, PT/OT evals
--- NOTE | 2016-11-12 12:41 | Surgery Progress Note ---
Surgery Progress Note Date of Service Nov 12, 2016. Subjective + feeling well, + bowel movement (osomy functioning), + diet (tolerating low fiber diet) Objective Vital Signs: Date Time Temp Pulse Resp B/P (MAP) Pulse Ox O2 Delivery O2 Flow Rate FiO2 11/12/16 11:39 37.0 87 20 138/74 (95) 96 Room Air 11/12/16 11:20 36.5 85 16 90 2.0 11/12/16 11:12 85 16 90 Room Air 11/12/16 08:07 36.5 99 20 129/71 (90) 92 Room Air 11/12/16 08:00 95 Room Air 11/12/16 07:15 85 16 93 Room Air 11/12/16 04:43 37.0 81 16 132/72 (92) 94 11/12/16 04:00 Room Air 11/12/16 00:41 36.9 85 18 134/67 (89) 95 11/12/16 00:00 95 Room Air 11/11/16 20:00 90 149/70 (96) 98 133/64 (87) 103 126/58 (80) 11/11/16 20:00 94 Room Air 11/11/16 19:02 37.0 88 18 146/66 (92) 94 Room Air 11/11/16 16:00 Room Air 11/11/16 15:24 87 16 90 Room Air 11/11/16 15:12 37.0 84 20 122/62 (82) 93 Room Air Abdomen: normal bowel sounds, non distended, soft, + pertinent finding (upper portion of skin open) Incision(s): clean, dry, no erythema Assessment & Plan S/P Eagle procedure Upper portion of skin opened No purulence or bleeding Wound vac ordered Continue dressings until wound vac placed
[2016-11-13] VITALS (8 sets, daily range): BP systolic 108–161; BP diastolic 55–76; PULSE 82–91; TEMP 36.4–37.1; O2SAT 91–96
[2016-11-13 06:08] LABS: BASO % 0.8 %; BASO ABS # 0.06 K/uL (0-0.2); COMPLETE YES; EOS % 6.8 %; HEMATOCRIT 31.8 % (42-52); IG% 0.4 %; LYMPH % 8.4 %; LYMPH ABS # 0.63 K/uL (1.2-3.4); MEAN CELL VOLUME 87.1 fL (80-100); MEAN CORPUSCULAR HEMOGLOBIN 27.7 pg (25-34); MEAN CORPUSCULAR HGB CONC 31.8 g/dl (32-36); MEAN PLATELET VOLUME 9.3 fL (7.4-10.4); MONO % 11.5 %; NEUT % 72.1 %; PLATELET COUNT 360 K/uL (130-400); RED BLOOD COUNT 3.65 M/uL (4.7-6.1); WHITE BLOOD COUNT 7.46 K/uL (4.8-10.8)
[2016-11-13 06:38] LABS: BUN/CREATININE RATIO 19.7 (10-20); CREATININE 0.76 mg/dl (0.60-1.40); POTASSIUM 4.4 mmol/L (3.5-5.1)
[2016-11-13] MEDS: ALBUT/IPRATROP 3MG/0.5MG NEB 3 ML VIAL INH SCH ×4 (07:00→18:19)
[2016-11-13] MEDS: BOOST PLUS VANILLA PO SCH ×6 (08:46→17:45)
[2016-11-13] MEDS: FERROUS SULFATE 325 MG TAB PO SCH ×2 (08:47→18:48)
[2016-11-13] MEDS: CEROVITE ADV FORMULA TAB PO SCH (08:47)
[2016-11-13] MEDS: PANTOprazole SOD 40 MG TAB PO SCH ×2 (08:47→21:03)
[2016-11-13] MEDS: GUAIFENESIN 600 MG TABCR PO SCH ×2 (08:47→21:03)
[2016-11-13] MEDS: DOCUSATE SODIUM 100 MG CAP PO SCH ×2 (08:47→21:04)
[2016-11-13] MEDS: POTASSIUM CHLORIDE 20 MEQ TABCR PO SCH ×2 (08:47→21:04)
[2016-11-13] MEDS: MAGNESIUM OXIDE 400 MG TAB PO SCH (08:48)
[2016-11-13] MEDS: FINASTERIDE 5 MG TAB PO SCH (08:48)
[2016-11-13] MEDS: FLUTICASONE/SALMETEROL 250/50 (ADVAIR) 14 PUFF/1 INHALER INH SCH ×2 (08:49→21:02)
[2016-11-13] MEDS ORDERED: HydrALAZINE HCL 20 MG/ML VIAL IV. PRN (10:45)
--- NOTE | 2016-11-13 11:47 | Surgery Progress Note ---
Surgery Progress Note Date of Service Nov 13, 2016. Subjective eating breakfast, no complaints Objective Vital Signs: Date Time Temp Pulse Resp B/P (MAP) Pulse Ox O2 Delivery O2 Flow Rate FiO2 11/13/16 11:40 84 16 92 Room Air 11/13/16 07:30 Room Air 11/13/16 07:25 36.5 88 18 161/75 (103) 96 Room Air 11/13/16 07:15 82 16 94 Room Air 11/13/16 00:00 Room Air 11/12/16 22:57 36.9 85 16 159/70 (99) 94 Room Air 11/12/16 19:20 84 16 93 Room Air 11/12/16 15:46 90 16 93 Room Air 11/12/16 15:40 Room Air 11/12/16 15:13 36.6 90 16 115/76 (89) 92 Room Air 11/12/16 12:15 Room Air General Appearance: no apparent distress Laboratory Results: Results Past 24 Hours Test 11/13/16 05:17 Range/Units White Blood Count 7.46 4.8-10.8 K/uL Red Blood Count 3.65 4.7-6.1 M/uL Hemoglobin 10.1 14.0-18.0 g/dL Hematocrit 31.8 42-52 % Mean Corpuscular Volume 87.1 80-100 fL Mean Corpuscular Hemoglobin 27.7 25-34 pg Mean Corpuscular Hemoglobin Concent 31.8 32-36 g/dl Platelet Count 360 130-400 K/uL Mean Platelet Volume 9.3 7.4-10.4 fL Neutrophils (%) (Auto) 72.1 % Lymphocytes (%) (Auto) 8.4 % Monocytes (%) (Auto) 11.5 % Eosinophils (%) (Auto) 6.8 % Basophils (%) (Auto) 0.8 % Neutrophils # (Auto) 5.37 1.4-6.5 K/uL Lymphocytes # (Auto) 0.63 1.2-3.4 K/uL Monocytes # (Auto) 0.86 0.11-0.59 K/uL Eosinophils # (Auto) 0.51 0-0.5 K/uL Basophils # (Auto) 0.06 0-0.2 K/uL RDW Standard Deviation 52.9 36.4-46.3 fL RDW Coefficient of Variation 16.4 11.5-14.5 % Immature Granulocyte % (Auto) 0.4 % Immature Granulocyte # (Auto) 0.03 0.00-0.02 K/uL Sodium Level 137 136-145 mmol/L Potassium Level 4.4 3.5-5.1 mmol/L Chloride Level 105 98-107 mmol/L Carbon Dioxide Level 28 21-32 mmol/L Anion Gap 4.0 3-11 mmol/L Blood Urea Nitrogen 15 7-18 mg/dl Creatinine 0.76 0.60-1.40 mg/dl Est Creatinine Clear Calc Drug Dose 78.4 ml/min Estimated GFR () 97.8 Estimated GFR (Non- 84.4 BUN/Creatinine Ratio 19.7 10-20 Random Glucose 95 70-99 mg/dl Calcium Level 10.0 8.5-10.1 mg/dl Assessment & Plan s/p Edwar's syncope/near syncope duodenal ulcer H&H stable wound opened after moe removed, to be seen for wound vac today
--- NOTE | 2016-11-13 14:23 | Hospitalist Progress Note ---
Hospitalist Progress Note Date of Service Nov 13, 2016. (Kisha Hansen PA-C) Subjective Pt evaluation today including: conversation w/ patient, physical exam, chart review, lab review, review of studies, review of inpatient medication list Patient seen and evaluated. Is due for wound vac placement today. Verbalizes no complaints. Hemoglobin has remained stable. Constitutional: No fever, No chills Respiratory: No shortness of breath Cardiovascular: No chest pain Abdomen: No pain, No nausea, No vomiting Heme: No abnormal bleeding/bruising (Kisha Hansen PA-C) Medications Current Inpatient Medications Medications (Trade) Dose Ordered Sig/Andrzej Route Start Time Stop Time Status Last Admin Dose Admin Acetaminophen (Tylenol Tab) 650 mg Q4H PRN PO 11/05/16 12:45 12/05/16 12:44 Al Hydrox/Mg Hydrox/Simethicone (Maalox Max Susp) 15 ml Q4H PRN PO 11/05/16 12:45 12/05/16 12:44 Magnesium Hydroxide (Milk Of Magnesia Susp) 30 ml Q12H PRN PO 11/05/16 12:45 12/05/16 12:44 Ondansetron HCl (Zofran Inj) 4 mg Q6H PRN IV 11/05/16 12:45 12/05/16 12:44 Polyethylene (Miralax Powder Packet) 17 gm DAILY PRN PO 11/05/16 12:45 12/05/16 12:44 Atenolol (Tenormin Tab) 25 mg DAILY PO 11/06/16 09:00 12/06/16 08:59 Future Hold 11/09/16 08:30 25 MG Docusate Sodium (coLACE CAP) 100 mg BID PO 11/05/16 21:00 12/05/16 20:59 11/13/16 08:47 100 MG Finasteride (Proscar Tab) 5 mg DAILY PO 11/06/16 09:00 12/06/16 08:59 11/13/16 08:48 5 MG Acetaminophen/ Hydrocodone Bitart ([place] 5/325 Tab) 1 tab Q4H PRN PO 11/05/16 12:45 11/19/16 12:44 11/10/16 10:29 1 TAB Multivitamins/ Minerals (Multivitamin W/ Minerals Tab) 1 tab DAILY PO 11/06/16 09:00 12/06/16 08:59 11/13/16 08:47 1 TAB Tamsulosin HCl (Flomax Cap) 0.4 mg DAILY PO 11/06/16 09:00 12/06/16 08:59 Future Hold 11/09/16 08:31 0.4 MG Furosemide 20 mg/ Syringe 2 ml @ 4 mls/min DAILY IV 11/06/16 09:00 12/06/16 08:59 Future Hold 11/07/16 07:27 4 MLS/MIN Miscellaneous (Iv Fluids Completed) 1 ea PRN PRN N/A 11/05/16 13:30 11/05/17 13:29 Magnesium Oxide (Mag-Ox Tab) 400 mg QAM PO 11/06/16 09:00 12/06/16 08:59 11/13/16 08:48 400 MG Ferrous Sulfate (Feosol Tab) 325 mg BIDM PO 11/06/16 08:00 12/06/16 07:59 11/13/16 08:47 325 MG Salmeterol Xinafoate/ Fluticasone (Advair Diskus 250/50 Inh) 1 puff BID INH 11/06/16 09:00 12/06/16 08:59 11/12/16 21:22 1 PUFF Guaifenesin (Mucinex Contr Rel Tab) 1,200 mg Q12 PO 11/06/16 09:00 12/06/16 08:59 11/13/16 08:47 1,200 MG Albuterol/ Ipratropium (Duoneb) 3 ml QIDR INH 11/06/16 08:15 12/06/16 08:14 11/13/16 11:40 3 ML Albuterol/ Ipratropium (Duoneb) 3 ml Q2H PRN INH 11/06/16 08:30 12/06/16 08:29 Enteral Nutritional Formula (Boost Plus Vanilla) 1 can TIDM PO 11/06/16 16:45 12/06/16 16:44 11/13/16 12:43 1 CAN Potassium Chloride (Klor-Con Tab) 20 meq BID PO 11/07/16 21:00 12/07/16 20:59 11/13/16 08:47 20 MEQ Pantoprazole Sodium (Protonix Tab) 40 mg BID PO 11/10/16 21:00 12/10/16 20:59 11/13/16 08:47 40 MG Hydralazine HCl (HydrALAZINE INJ) 10 mg Q6 PRN IV. 11/13/16 10:45 12/13/16 10:44 (Kisha Hansen PA-C) Objective Vital Signs Date Time Temp Pulse Resp B/P (MAP) Pulse Ox O2 Delivery O2 Flow Rate FiO2 11/13/16 07:25 36.5 88 18 161/75 (103) 96 Room Air 11/13/16 07:15 82 16 94 Room Air 11/13/16 00:00 Room Air 11/12/16 22:57 36.9 85 16 159/70 (99) 94 Room Air 11/12/16 19:20 84 16 93 Room Air 11/12/16 15:46 90 16 93 Room Air 11/12/16 15:40 Room Air 11/12/16 15:13 36.6 90 16 115/76 (89) 92 Room Air 11/12/16 12:15 Room Air 11/12/16 11:39 37.0 87 20 138/74 (95) 96 Room Air 11/12/16 11:20 36.5 85 16 90 2.0 11/12/16 11:12 85 16 90 Room Air (Kisha Hansen PA-C) Physical Exam General Appearance: no apparent distress, + thin Eyes: sclerae normal ENT: hearing grossly normal Neck: supple, no JVD, trachea midline Respiratory/Chest: no respiratory distress, no accessory muscle use, + wheezing (intermittent R exp. wheeze that cleared with increased breaths) Cardiovascular: regular rate, rhythm, no gallop, no murmur Abdomen: normal bowel sounds, + pertinent finding (LLQ colostomy) Extremities: + pertinent finding (improved edema with blistering of lower extremities) Neurologic/Psychiatric: alert Skin: normal color, warm/dry (Kisha Hansen PA-C) Laboratory Results Last 24 Hours Test 11/13/16 05:17 White Blood Count 7.46 K/uL Red Blood Count 3.65 M/uL Hemoglobin 10.1 g/dL Hematocrit 31.8 % Mean Corpuscular Volume 87.1 fL Mean Corpuscular Hemoglobin 27.7 pg Mean Corpuscular Hemoglobin Concent 31.8 g/dl Platelet Count 360 K/uL Mean Platelet Volume 9.3 fL Neutrophils (%) (Auto) 72.1 % Lymphocytes (%) (Auto) 8.4 % Monocytes (%) (Auto) 11.5 % Eosinophils (%) (Auto) 6.8 % Basophils (%) (Auto) 0.8 % Neutrophils # (Auto) 5.37 K/uL Lymphocytes # (Auto) 0.63 K/uL Monocytes # (Auto) 0.86 K/uL Eosinophils # (Auto) 0.51 K/uL Basophils # (Auto) 0.06 K/uL RDW Standard Deviation 52.9 fL RDW Coefficient of Variation 16.4 % Immature Granulocyte % (Auto) 0.4 % Immature Granulocyte # (Auto) 0.03 K/uL Sodium Level 137 mmol/L Potassium Level 4.4 mmol/L Chloride Level 105 mmol/L Carbon Dioxide Level 28 mmol/L Anion Gap 4.0 mmol/L Blood Urea Nitrogen 15 mg/dl Creatinine 0.76 mg/dl Est Creatinine Clear Calc Drug Dose 78.4 ml/min Estimated GFR () 97.8 Estimated GFR (Non- 84.4 BUN/Creatinine Ratio 19.7 Random Glucose 95 mg/dl Calcium Level 10.0 mg/dl (Kisha Hansen, PAIssaC) Assessment and Plan 81 y/o male with a history of HTN, BPH, and recent perforated diverticulitis s/ p sigmoid colectomy and colostomy who presented to the ED on 11/05 from [facility] following a syncopal or near syncopal episode. Patient afebrile, VSS. BP was 121/82 on arrival, then dropped to 104/49. Head CT negative for acute findings. CXR shows emphysema but no evidence of consolidation. Trace pleural effusions cannot be excluded. EKG shows no ischemic changes. WBC 12.85. Hgb 8.6. PLT 715. UA positive for occult blood 2+. Syncope/Near Syncope: Acute Blood Loss Anemia vs Atenolol: - Total transfusion of PRBCs x 3 units - 11/05 and 11/07 - Hgb stable in 10s - ASA 81 mg on hold - Ferrous sulfate 325 mg BID - Continue to hold Atenolol and plan to D/C altogether - tolerating without rebound effects - GI followed - evidence of non-bleeding duodenal ulcer - Gen Surg following - plan for wound vac for dehiscence Cough: Fluid Overload vs Lower Resp Infection: - Outpatient antibiotics as well as inpatient - antibiotic course finished - Duonebs and Mucinex BID - Echo - EF 55-60%; no mention of diastolic dysfunction - Continue to hold Lozol - negative 10471 fluid balance Abdominal Wound Dehiscence S/P Sigmoid Colectomy and Colostomy 10/24 - Perforated Diverticulitis: - Staple removed 11/10 - superior aspect of incision 3 cm down to fascial plan - no surgical intervention but placement of wound vac - Wound care following - discussed with Amparo that there is presence of a hematoma and will not be able to place wound vac due to risk of compromised hemostasis -- Will discuss with Dr. Carrillo and have him evaluate patient - will utilize non-stick and absorbant dressings Bilateral Lower Extremity Edema: IMPROVING - Bilateral Doppler U/S - no evidence of DVT - Lozol remains on hold - Wound care following - non-stick dressings for blisters HTN: STABLE - Continue to hold atenolol with likely D/C - consideration for reinstitution if necessary by PCP BPH: - Proscar 5 mg daily and Flomax 0.4 mg daily DVT Prophylaxis: TEDs/SCDs; chemical means contraindicated due to anemia Code Status: FULL CODE Disposition: D/C likely tomorrow to [facility] Discharge planning: rehab hospital (Kisha Hansen PA-C) Reviewed: Pt Seen/Exam by Me (Janel Rascon MD) History Physician Care Transport Nurse Supervision Note: I interviewed and examined the patient. Discussed with JUANIS Hansen and agree with findings and plan as documented in the note. Any exceptions or clarifications are listed here: Pt states he feels "fine." Denies SOB, has a mild cough that is improved from when I admitted him. Has diuresed quite a bit but still remains with LE edema. Apparently Wound RN tried to place wound vac but couldn't this afternoon due to hematoma. Vitals reviewed, labile BP NAD, sitting in chair, Alert, awake RRR no mgr Lungs with diminished BS throughout, some upper airway insp and exp wheezes, no crackles Abd +BS, soft, NT, LLQ colostomy bag with stool green, superior incision with dressing in place c/d/i, lower incision open to air with some steri strips and is well-healed Ext 2+ pitting edema, dressings not removed 81 yo male with recent perforated sigmoid diverticulitis with colectomy and colostomy, admitted with syncope and acute blood loss anemia, fluid overload. Found to have large nonbleeding duodenal ulcer, also with bleeding from incision and wound dehiscence. Hgb has stabilized, no further transfusion needed. Difficulty with wound vac placement now due to incisional hematoma--> will d/w Surgery, WOund MD FLuid overload-ECHO with normal EF, has diuresed quite a bit and still has more to go--> restart lasix 20mg po daily -ok to stephen Hopson, continue to follow I/Os -COPD-continue nebs, has finished out course of Levaquin for acute exacerbation COPD -continue bid PPI for large ulcer--> will likely need outpt GI f/u in future, may need f/u EGD Documented By: Janel Rascon (Janel Rascon MD)
[2016-11-13] MEDS ORDERED: FUROSEMIDE 20 MG TAB PO ONE (16:00)
[2016-11-14] VITALS (11 sets, daily range): BP systolic 103–160; BP diastolic 57–78; PULSE 81–96; TEMP 36.5–37; O2SAT 94–96
[2016-11-14 06:55] LABS: HEMATOCRIT 32.8 % (42-52); MEAN CORPUSCULAR HEMOGLOBIN 27.6 pg (25-34); MEAN CORPUSCULAR HGB CONC 31.7 g/dl (32-36); MEAN PLATELET VOLUME 9.2 fL (7.4-10.4); PLATELET COUNT 372 K/uL (130-400); RED BLOOD COUNT 3.77 M/uL (4.7-6.1); WHITE BLOOD COUNT 8.51 K/uL (4.8-10.8)
[2016-11-14] MEDS: ALBUT/IPRATROP 3MG/0.5MG NEB 3 ML VIAL INH SCH ×4 (07:10→19:33)
[2016-11-14 07:17] LABS: BUN/CREATININE RATIO 20.6 (10-20); CALCIUM 10.5 mg/dl (8.5-10.1); CREATININE 1.1 mg/dl (0.60-1.40); POTASSIUM 4.1 mmol/L (3.5-5.1)
--- NOTE | 2016-11-14 07:42 | Surgery Progress Note ---
Surgery Progress Note Date of Service Nov 14, 2016. Subjective No complaints wound vac on hold due to clot in wound Objective Vital Signs: Date Time Temp Pulse Resp B/P (MAP) Pulse Ox O2 Delivery O2 Flow Rate FiO2 11/14/16 07:10 94 16 96 Room Air 11/13/16 23:20 Room Air 11/13/16 22:52 36.9 90 16 147/76 (99) 95 Room Air 11/13/16 18:20 86 16 93 Room Air 11/13/16 15:32 86 16 93 Room Air 11/13/16 15:23 37.1 91 16 108/55 (72) 95 Room Air 11/13/16 15:15 Room Air 11/13/16 11:51 36.4 85 16 110/66 (81) 91 Room Air 11/13/16 11:40 84 16 92 Room Air Incision(s): intact (optifoam dressing) Laboratory Results: Results Past 24 Hours Test 11/14/16 06:22 Range/Units White Blood Count 8.51 4.8-10.8 K/uL Red Blood Count 3.77 4.7-6.1 M/uL Hemoglobin 10.4 14.0-18.0 g/dL Hematocrit 32.8 42-52 % Mean Corpuscular Volume 87.0 80-100 fL Mean Corpuscular Hemoglobin 27.6 25-34 pg Mean Corpuscular Hemoglobin Concent 31.7 32-36 g/dl RDW Standard Deviation 52.2 36.4-46.3 fL RDW Coefficient of Variation 16.4 11.5-14.5 % Platelet Count 372 130-400 K/uL Mean Platelet Volume 9.2 7.4-10.4 fL Sodium Level 137 136-145 mmol/L Potassium Level 4.1 3.5-5.1 mmol/L Chloride Level 103 98-107 mmol/L Carbon Dioxide Level 29 21-32 mmol/L Anion Gap 5.0 3-11 mmol/L Blood Urea Nitrogen 23 7-18 mg/dl Creatinine 1.10 0.60-1.40 mg/dl Est Creatinine Clear Calc Drug Dose 54.2 ml/min Estimated GFR () 71.6 Estimated GFR (Non- 61.8 BUN/Creatinine Ratio 20.6 10-20 Random Glucose 96 70-99 mg/dl Calcium Level 10.5 8.5-10.1 mg/dl Assessment & Plan s/p Edwar's syncope/near syncope duodenal ulcer stable from surgical perspective wound care following d/c planning ? return to [facility], can f/u with us about 2 weeks after discharge
[2016-11-14] MEDS: BOOST PLUS VANILLA PO SCH ×6 (08:30→18:18)
[2016-11-14] MEDS: CEROVITE ADV FORMULA TAB PO SCH (09:41)
[2016-11-14] MEDS: GUAIFENESIN 600 MG TABCR PO SCH ×2 (09:42→21:09)
[2016-11-14] MEDS: FLUTICASONE/SALMETEROL 250/50 (ADVAIR) 14 PUFF/1 INHALER INH SCH ×2 (09:42→21:07)
[2016-11-14] MEDS: PANTOprazole SOD 40 MG TAB PO SCH ×2 (09:42→21:09)
[2016-11-14] MEDS: FERROUS SULFATE 325 MG TAB PO SCH ×2 (09:42→18:18)
[2016-11-14] MEDS: FUROSEMIDE 20 MG TAB PO SCH (09:43)
[2016-11-14] MEDS: DOCUSATE SODIUM 100 MG CAP PO SCH ×2 (09:43→21:08)
[2016-11-14] MEDS: POTASSIUM CHLORIDE 20 MEQ TABCR PO SCH ×2 (09:43→21:08)
[2016-11-14] MEDS: MAGNESIUM OXIDE 400 MG TAB PO SCH (09:43)
[2016-11-14] MEDS: FINASTERIDE 5 MG TAB PO SCH (09:43)
--- NOTE | 2016-11-14 14:15 | Hospitalist Progress Note ---
Hospitalist Progress Note Date of Service Nov 14, 2016. (Kisha Hansen PA-C) Subjective Pt evaluation today including: conversation w/ patient, physical exam, chart review, lab review, review of studies, review of inpatient medication list Voiding: cardona catheter in place Patient seen and evaluated. Wound care provider in to see patient and removed clot but will not be able to place vac due to concern of evisceration. Will continue conservative treatment with wound care/dressings. Surgery plans to follow-up in 2 weeks. Patient also noted to have urinary retention requiring straight cath and ultimately reinsertion of Cardona catheter. Flomax has been on hold due to orthostasis. -- Plan to obtain updated orthostatics and possible reinstitute Flomax Patient was eating lunch and has been tolerating diet. Granddaughter reports that they were just recently able to get him eating again a few days ago. He verbalizes no complaints. Updated granddaughter yesterday and will try to update her again today. Spoke with [facility] sales representative facility services and the authorization process was started. Constitutional: No fever, No chills Respiratory: + cough, No shortness of breath Cardiovascular: No chest pain, No palpitations Abdomen: No pain, No nausea, No vomiting Male : No dysuria Heme: No abnormal bleeding/bruising (Kisha Hansen, SAVAGEC) Medications Current Inpatient Medications Medications (Trade) Dose Ordered Sig/Andrzej Route Start Time Stop Time Status Last Admin Dose Admin Acetaminophen (Tylenol Tab) 650 mg Q4H PRN PO 11/05/16 12:45 12/05/16 12:44 Al Hydrox/Mg Hydrox/Simethicone (Maalox Max Susp) 15 ml Q4H PRN PO 11/05/16 12:45 12/05/16 12:44 Magnesium Hydroxide (Milk Of Magnesia Susp) 30 ml Q12H PRN PO 11/05/16 12:45 12/05/16 12:44 Ondansetron HCl (Zofran Inj) 4 mg Q6H PRN IV 11/05/16 12:45 12/05/16 12:44 Polyethylene (Miralax Powder Packet) 17 gm DAILY PRN PO 11/05/16 12:45 12/05/16 12:44 Atenolol (Tenormin Tab) 25 mg DAILY PO 11/06/16 09:00 8/23/17 08:59 Future Hold 11/09/16 08:30 25 MG Docusate Sodium (coLACE CAP) 100 mg BID PO 11/05/16 21:00 12/05/16 20:59 11/14/16 09:43 100 MG Finasteride (Proscar Tab) 5 mg DAILY PO 11/06/16 09:00 12/06/16 08:59 11/14/16 09:43 5 MG Acetaminophen/ Hydrocodone Bitart ([place] 5/325 Tab) 1 tab Q4H PRN PO 11/05/16 12:45 11/19/16 12:44 11/10/16 10:29 1 TAB Multivitamins/ Minerals (Multivitamin W/ Minerals Tab) 1 tab DAILY PO 11/06/16 09:00 12/06/16 08:59 11/14/16 09:41 1 TAB Tamsulosin HCl (Flomax Cap) 0.4 mg DAILY PO 11/06/16 09:00 12/06/16 08:59 Future Hold 11/09/16 08:31 0.4 MG Miscellaneous (Iv Fluids Completed) 1 ea PRN PRN N/A 11/05/16 13:30 11/05/17 13:29 Magnesium Oxide (Mag-Ox Tab) 400 mg QAM PO 11/06/16 09:00 12/06/16 08:59 11/14/16 09:43 400 MG Ferrous Sulfate (Feosol Tab) 325 mg BIDM PO 11/06/16 08:00 12/06/16 07:59 11/14/16 09:42 325 MG Salmeterol Xinafoate/ Fluticasone (Advair Diskus 250/50 Inh) 1 puff BID INH 11/06/16 09:00 12/06/16 08:59 11/14/16 09:42 1 PUFF Guaifenesin (Mucinex Contr Rel Tab) 1,200 mg Q12 PO 11/06/16 09:00 12/06/16 08:59 11/14/16 09:42 1,200 MG Albuterol/ Ipratropium (Duoneb) 3 ml QIDR INH 11/06/16 08:15 12/06/16 08:14 11/14/16 07:10 3 ML Albuterol/ Ipratropium (Duoneb) 3 ml Q2H PRN INH 11/06/16 08:30 12/06/16 08:29 Enteral Nutritional Formula (Boost Plus Vanilla) 1 can TIDM PO 11/06/16 16:45 12/06/16 16:44 11/14/16 12:39 1 CAN Potassium Chloride (Klor-Con Tab) 20 meq BID PO 11/07/16 21:00 12/07/16 20:59 11/14/16 09:43 20 MEQ Pantoprazole Sodium (Protonix Tab) 40 mg BID PO 11/10/16 21:00 12/10/16 20:59 11/14/16 09:42 40 MG Hydralazine HCl (HydrALAZINE INJ) 10 mg Q6 PRN IV. 11/13/16 10:45 12/13/16 10:44 Furosemide (Lasix Tab) 20 mg QAM PO 11/14/16 09:00 12/14/16 08:59 11/14/16 09:43 20 MG (Kisha Hansen PA-C) Objective Vital Signs Date Time Temp Pulse Resp B/P (MAP) Pulse Ox O2 Delivery O2 Flow Rate FiO2 11/14/16 12:25 Room Air 11/14/16 12:21 109/63 (78) 11/14/16 12:20 103/57 (72) 11/14/16 12:19 134/68 (90) 11/14/16 08:30 96 Room Air 11/14/16 07:50 37.0 82 16 154/78 (103) 96 Room Air 11/14/16 07:10 94 16 96 Room Air 11/13/16 23:20 Room Air 11/13/16 22:52 36.9 90 16 147/76 (99) 95 Room Air 11/13/16 18:20 86 16 93 Room Air 11/13/16 15:32 86 16 93 Room Air 11/13/16 15:23 37.1 91 16 108/55 (72) 95 Room Air 11/13/16 15:15 Room Air (Kisha Hansen PA-C) Physical Exam General Appearance: no apparent distress, + thin Eyes: sclerae normal ENT: hearing grossly normal Neck: supple, no JVD, trachea midline Respiratory/Chest: lungs clear, normal breath sounds, no respiratory distress, no accessory muscle use Cardiovascular: regular rate, rhythm, no gallop, no murmur Abdomen: normal bowel sounds, non tender, soft Extremities: + swelling (bilateral lower extremities - L>R) Neurologic/Psychiatric: alert Skin: normal color, warm/dry (Kisha Hansen PA-C) Laboratory Results Last 24 Hours Test 11/14/16 06:22 White Blood Count 8.51 K/uL Red Blood Count 3.77 M/uL Hemoglobin 10.4 g/dL Hematocrit 32.8 % Mean Corpuscular Volume 87.0 fL Mean Corpuscular Hemoglobin 27.6 pg Mean Corpuscular Hemoglobin Concent 31.7 g/dl RDW Standard Deviation 52.2 fL RDW Coefficient of Variation 16.4 % Platelet Count 372 K/uL Mean Platelet Volume 9.2 fL Sodium Level 137 mmol/L Potassium Level 4.1 mmol/L Chloride Level 103 mmol/L Carbon Dioxide Level 29 mmol/L Anion Gap 5.0 mmol/L Blood Urea Nitrogen 23 mg/dl Creatinine 1.10 mg/dl Est Creatinine Clear Calc Drug Dose 54.2 ml/min Estimated GFR () 71.6 Estimated GFR (Non- 61.8 BUN/Creatinine Ratio 20.6 Random Glucose 96 mg/dl Calcium Level 10.5 mg/dl (Kisha Hansen PA-C) Assessment and Plan 81 y/o male with a history of HTN, BPH, and recent perforated diverticulitis s/ p sigmoid colectomy and colostomy who presented to the ED on 11/05 from [facility] following a syncopal or near syncopal episode. Patient afebrile, VSS. BP was 121/82 on arrival, then dropped to 104/49. Head CT negative for acute findings. CXR shows emphysema but no evidence of consolidation. Trace pleural effusions cannot be excluded. EKG shows no ischemic changes. WBC 12.85. Hgb 8.6. PLT 715. UA positive for occult blood 2+. Syncope/Near Syncope: Acute Blood Loss Anemia vs Atenolol: RESOLVED - Total transfusion of PRBCs x 3 units - 11/05 and 11/07 - hemoglobin remains stable in 10s - ASA 81 mg on hold - Ferrous sulfate 325 mg BID - Continue to hold Atenolol and plan to D/C altogether - tolerating without rebound effects - GI followed - evidence of non-bleeding duodenal ulcer - Gen Surg following - wants to F/U in 2 weeks - no need for surgical intervention Cough: Fluid Overload vs Lower Resp Infection: - Outpatient antibiotics as well as inpatient - antibiotic course finished - Duonebs and Mucinex BID - Echo - EF 55-60%; no mention of diastolic dysfunction - Continue to hold Lozol - negative 20647 fluid balance Abdominal Wound Dehiscence S/P Sigmoid Colectomy and Colostomy 10/24 - Perforated Diverticulitis: - Staple removed 11/10 - superior aspect of incision 3 cm down to fascial plan - - Wound care following - discussed with Amparo that there is presence of a hematoma and will not be able to place wound vac due to risk of compromised hemostasis -- Dr. Carrillo evaluated and evacuated clot - still cannot place wound vac for concern of evisceration - continue dressings and will see tomorrow Bilateral Lower Extremity Edema: IMPROVING - Bilateral Doppler U/S - no evidence of DVT - Lozol remains on hold - likely will need to avoid on D/C - Lasix 20 mg po daily - Wound care following - non-stick dressings for blisters HTN: STABLE - Continue to hold atenolol with likely D/C - consideration for reinstitution if necessary by PCP BPH: - Proscar 5 mg daily and Flomax 0.4 mg daily DVT Prophylaxis: TEDs/SCDs; chemical means contraindicated due to anemia Code Status: FULL CODE Disposition: Will await re-evaluated by wound - would like to make sure wound is stabilized; will likely need to be D/C'd with Cardona -- Hopeful D/C 1-2 days? Continued [facility] stay due to: voiding difficulties, other (Wound stabilization) Discharge planning: rehab hospital (Kisha Hansen PA-C) Reviewed: Pt Seen/Exam by Me (Janel Rascon MD) History Physician Merchant Tailor Supervision Note: I interviewed and examined the patient. Discussed with JUANIS Hansen and agree with findings and plan as documented in the note. Any exceptions or clarifications are listed here: Discussed case with Wound MD and after clot removal, there was exposed peritoneum so wound vac will not be placed. He d/w Surgery who recommended continued dressing changes until healed. Pt is eating. He is retaining urine and has been off Flomax for orthostasis, Cardona placed today Vitals reviewed, labile BP NAD, sitting in chair, Alert, awake RRR no mgr Lungs with diminished BS throughout, some upper airway insp and exp wheezes, no crackles Abd +BS, soft, NT, LLQ colostomy bag with stool green, superior incision with dressing in place c/d/i, lower incision open to air with some steri strips and is well-healed Ext 1+ pitting edema, dressings not removed 81 yo male with recent perforated sigmoid diverticulitis with colectomy and colostomy, admitted with syncope and acute blood loss anemia, fluid overload. Found to have large nonbleeding duodenal ulcer, also with bleeding from incision and wound dehiscence. Hgb has stabilized, no further transfusion needed. No plans for wound vac placement now due to exposed peritoneum, continue daily dressing changes Leg edema secondary to hypoalbuminemia-ECHO with normal EF, has diuresed quite a bit and still has more to go--> restart lasix 20mg po daily -continue with good nutrition and Nutrition consult for wound healing -Keep Cardona in now and restart Flomax, will keep Cardona in to go to SNF -COPD-continue nebs, has finished out course of Levaquin for acute exacerbation COPD -continue bid PPI for large ulcer--> will likely need outpt GI f/u in future, may need f/u EGD Documented By: Janel Rascon (Janel Rascon MD)
--- NOTE | 2016-11-14 15:09 | Wound Consultation: Inpatient ---
Wound Consultation Date of Consultation: Nov 14, 2016. Attending Physician: Wilmer Kramer M.D. Reason for Consultation: Nonhealing postoperative abdominal wound History of Present Illness Patient underwent surgical exploration for a ruptured diverticuli approximately 7 days prior. Patient's midabdominal wound opened a few days ago following removal of moe. There were episodes of bleeding at this site intermittently prior to this. Patient currently denies any pain in the area. Patient denies any nausea vomiting chest pain or shortness of breath. Patient denies any fever chills or night sweats. Patient denies any other systemic complaints at this time. Family History Cancer Myocardial infarction Social History Smoking Status: Former Smoker Smokeless Tobacco Use: No Alcohol Use: none Drug Use: none Marital Status: Housing Status: other (Was at [facility]) Occupation Status: retired Allergies Coded Allergies: No Known Allergies (Unverified , 11/05/16) Home Medications Scheduled Amoxicillin & Pot Clavulanate (Augmentin 875-125 mg), 875 MG PO BID Aspirin (Aspirin), 1 TAB PO DAILY Atenolol (Tenormin), 50 MG PO DAILY Docusate Sodium (Docusate Sodium), 1 CAP PO BID Finasteride (Proscar), 5 MG PO DAILY Indapamide (Lozol), 1.25 MG PO DAILY Multiple Vitamins W/ Minerals (Centrum Adults), 1 TAB PO DAILY Ocuvite Preservision (Ocuvite Preservision), 1 TAB PO DAILY Tamsulosin Hcl (Flomax), 0.4 MG PO DAILY [Boost], 1 CAN PO TIDM Scheduled PRN Hydrocodone/Acetaminophen 5MG/325MG ([place] 5MG/325MG), 1 TABLET PO Q4H PRN for Pain Inpatient Medications Current Inpatient Medications Medications (Trade) Dose Ordered Sig/Andrzej Route Start Time Stop Time Status Last Admin Dose Admin Acetaminophen (Tylenol Tab) 650 mg Q4H PRN PO 11/05/16 12:45 12/05/16 12:44 Al Hydrox/Mg Hydrox/Simethicone (Maalox Max Susp) 15 ml Q4H PRN PO 11/05/16 12:45 12/05/16 12:44 Magnesium Hydroxide (Milk Of Magnesia Susp) 30 ml Q12H PRN PO 11/05/16 12:45 12/05/16 12:44 Ondansetron HCl (Zofran Inj) 4 mg Q6H PRN IV 11/05/16 12:45 12/05/16 12:44 Polyethylene (Miralax Powder Packet) 17 gm DAILY PRN PO 11/05/16 12:45 12/05/16 12:44 Atenolol (Tenormin Tab) 25 mg DAILY PO 11/06/16 09:00 12/06/16 08:59 Future Hold 11/09/16 08:30 25 MG Docusate Sodium (coLACE CAP) 100 mg BID PO 11/05/16 21:00 12/05/16 20:59 11/14/16 09:43 100 MG Finasteride (Proscar Tab) 5 mg DAILY PO 11/06/16 09:00 12/06/16 08:59 11/14/16 09:43 5 MG Acetaminophen/ Hydrocodone Bitart ([place] 5/325 Tab) 1 tab Q4H PRN PO 11/05/16 12:45 11/19/16 12:44 11/10/16 10:29 1 TAB Multivitamins/ Minerals (Multivitamin W/ Minerals Tab) 1 tab DAILY PO 11/06/16 09:00 12/06/16 08:59 11/14/16 09:41 1 TAB Tamsulosin HCl (Flomax Cap) 0.4 mg DAILY PO 11/06/16 09:00 12/06/16 08:59 Future hold 11/09/16 08:31 0.4 MG Miscellaneous (Iv Fluids Completed) 1 ea PRN PRN N/A 11/05/16 13:30 11/05/17 13:29 Magnesium Oxide (Mag-Ox Tab) 400 mg QAM PO 11/06/16 09:00 12/06/16 08:59 11/14/16 09:43 400 MG Ferrous Sulfate (Feosol Tab) 325 mg BIDM PO 11/06/16 08:00 12/06/16 07:59 11/14/16 09:42 325 MG Salmeterol Xinafoate/ Fluticasone (Advair Diskus 250/50 Inh) 1 puff BID INH 11/06/16 09:00 12/06/16 08:59 11/14/16 09:42 1 PUFF Guaifenesin (Mucinex Contr Rel Tab) 1,200 mg Q12 PO 11/06/16 09:00 12/06/16 08:59 11/14/16 09:42 1,200 MG Albuterol/ Ipratropium (Duoneb) 3 ml QIDR INH 11/06/16 08:15 12/06/16 08:14 11/14/16 07:10 3 ML Albuterol/ Ipratropium (Duoneb) 3 ml Q2H PRN INH 11/06/16 08:30 12/06/16 08:29 Enteral Nutritional Formula (Boost Plus Vanilla) 1 can TIDM PO 11/06/16 16:45 12/06/16 16:44 11/14/16 12:39 1 CAN Potassium Chloride (Klor-Con Tab) 20 meq BID PO 11/07/16 21:00 12/07/16 20:59 11/14/16 09:43 20 MEQ Pantoprazole Sodium (Protonix Tab) 40 mg BID PO 11/10/16 21:00 12/10/16 20:59 11/14/16 09:42 40 MG Hydralazine HCl (HydrALAZINE INJ) 10 mg Q6 PRN IV. 11/13/16 10:45 12/13/16 10:44 Furosemide (Lasix Tab) 20 mg QAM PO 11/14/16 09:00 12/14/16 08:59 11/14/16 09:43 20 MG Physical Exam Date Time Temp Pulse Resp B/P (MAP) Pulse Ox O2 Delivery O2 Flow Rate FiO2 11/14/16 12:25 Room Air 11/14/16 12:21 109/63 (78) 11/14/16 12:20 103/57 (72) 11/14/16 12:19 134/68 (90) 11/14/16 08:30 96 Room Air 11/14/16 07:50 37.0 82 16 154/78 (103) 96 Room Air 11/14/16 07:10 94 16 96 Room Air 11/13/16 23:20 Room Air 11/13/16 22:52 36.9 90 16 147/76 (99) 95 Room Air 11/13/16 18:20 86 16 93 Room Air 11/13/16 15:32 86 16 93 Room Air 11/13/16 15:23 37.1 91 16 108/55 (72) 95 Room Air 11/13/16 15:15 Room Air General: The patient is sitting in the exam room in no distress. Alert, cooperative and appropriate to all questions. HEENT: Pupils equal and reactive to light. Sclera clear, EOM intact. Neck: Supple, No JVD noted Chest: CTA in all doran. No deformity Heart: RRR without murmurs, S3, S4, thrills, rubs or heaves Abdomen: Soft nondistended no tenderness to palpations noted. There is an extensive open midabdominal wound measuring 9.5 x 3.7 x 2.2 cm. Undermining present between 12 and 6:00 of 2.8 cm. There is an extensive organized clot throughout the base. Once the clot was evacuated peritoneum was exposed. No evidence of fascia or muscle present at the base. No active bleeding present. Neurological: Alert and oriented x3. No focal deficits. Laboratory Results Last 24 Hours Test 11/14/16 06:22 White Blood Count 8.51 K/uL Red Blood Count 3.77 M/uL Hemoglobin 10.4 g/dL Hematocrit 32.8 % Mean Corpuscular Volume 87.0 fL Mean Corpuscular Hemoglobin 27.6 pg Mean Corpuscular Hemoglobin Concent 31.7 g/dl RDW Standard Deviation 52.2 fL RDW Coefficient of Variation 16.4 % Platelet Count 372 K/uL Mean Platelet Volume 9.2 fL Sodium Level 137 mmol/L Potassium Level 4.1 mmol/L Chloride Level 103 mmol/L Carbon Dioxide Level 29 mmol/L Anion Gap 5.0 mmol/L Blood Urea Nitrogen 23 mg/dl Creatinine 1.10 mg/dl Est Creatinine Clear Calc Drug Dose 54.2 ml/min Estimated GFR () 71.6 Estimated GFR (Non- 61.8 BUN/Creatinine Ratio 20.6 Random Glucose 96 mg/dl Calcium Level 10.5 mg/dl Assessment & Plan Assessment: Postoperative nonhealing abdominal wound with organized hematoma Plan: With the patient's permission the hematoma formation was removed with blunt dissection and copious irrigation of normal saline was suction. No active bleeding was present. No significant purulent drainage or odor was noted. Peritoneum was present and intact. No fascia or muscle was noted at the base. The site will be dressed today with 2 layers of Adaptic followed by Kaltostat and after phone dressings. Rest is to be changed daily. Patient will continue to be monitored during his hospital course and in the outpatient environment as needed. At this time a wound VAC is not recommended due to the complete exposure peritoneum at the base. The care was discussed with Dr. Silver. This represented an evacuation of an abdominal wall hematoma.
[2016-11-15] VITALS (8 sets, daily range): BP systolic 94–137; BP diastolic 39–70; PULSE 78–101; TEMP 36.3–37.2; O2SAT 88–96
[2016-11-15 07:01] LABS: BASO % 1.7 %; BASO ABS # 0.12 K/uL (0-0.2); COMPLETE YES; EOS % 7.7 %; HEMATOCRIT 29.5 % (42-52); IG% 0.4 %; LYMPH % 8.3 %; LYMPH ABS # 0.58 K/uL (1.2-3.4); MEAN CORPUSCULAR HEMOGLOBIN 27.4 pg (25-34); MEAN CORPUSCULAR HGB CONC 31.5 g/dl (32-36); MEAN PLATELET VOLUME 9.2 fL (7.4-10.4); MONO % 9.8 %; NEUT % 72.1 %; PLATELET COUNT 320 K/uL (130-400); RED BLOOD COUNT 3.39 M/uL (4.7-6.1); WHITE BLOOD COUNT 7.03 K/uL (4.8-10.8)
[2016-11-15] MEDS: ALBUT/IPRATROP 3MG/0.5MG NEB 3 ML VIAL INH SCH ×4 (07:07→19:59)
[2016-11-15 07:38] LABS: CALCIUM 10.2 mg/dl (8.5-10.1); CREATININE 0.94 mg/dl (0.60-1.40); POTASSIUM 4.4 mmol/L (3.5-5.1)
[2016-11-15] MEDS: FLUTICASONE/SALMETEROL 250/50 (ADVAIR) 14 PUFF/1 INHALER INH SCH ×2 (08:58→20:40)
[2016-11-15] MEDS: PANTOprazole SOD 40 MG TAB PO SCH ×2 (08:59→20:41)
[2016-11-15] MEDS: DOCUSATE SODIUM 100 MG CAP PO SCH ×2 (08:59→20:40)
[2016-11-15] MEDS: FINASTERIDE 5 MG TAB PO SCH (08:59)
[2016-11-15] MEDS: FUROSEMIDE 20 MG TAB PO SCH (08:59)
[2016-11-15] MEDS: CEROVITE ADV FORMULA TAB PO SCH (08:59)
[2016-11-15] MEDS: GUAIFENESIN 600 MG TABCR PO SCH ×2 (08:59→20:41)
[2016-11-15] MEDS: POTASSIUM CHLORIDE 20 MEQ TABCR PO SCH ×2 (08:59→20:42)
[2016-11-15] MEDS: MAGNESIUM OXIDE 400 MG TAB PO SCH (08:59)
[2016-11-15] MEDS: FERROUS SULFATE 325 MG TAB PO SCH ×2 (09:00→20:40)
[2016-11-15] MEDS: BOOST PLUS VANILLA PO SCH ×6 (09:00→20:39)
[2016-11-15] MEDS: TAMSULOSIN HCL 0.4 MG CAP PO SCH (11:54)
[2016-11-15] MEDS ORDERED: FRRS300 PO (12:12)
[2016-11-15] MEDS ORDERED: Boost PO (12:12)
[2016-11-15] MEDS ORDERED: IPRASOL4 INH (12:12)
[2016-11-15] MEDS ORDERED: ADVIN25050 INH (12:12)
[2016-11-15] MEDS ORDERED: GFNSR600 PO (12:12)
[2016-11-15] MEDS ORDERED: HYDR-5688 PO (12:12)
[2016-11-15] MEDS ORDERED: MCRK20 PO (12:12)
[2016-11-15] MEDS ORDERED: MGNO400 PO (12:12)
[2016-11-15] MEDS ORDERED: LSX20 PO (12:12)
--- NOTE | 2016-11-15 15:17 | Hospitalist Progress Note ---
Hospitalist Progress Note Date of Service Nov 15, 2016. (Kisha Hansen, SAVAGEC) Subjective Pt evaluation today including: conversation w/ patient, physical exam, chart review, lab review, review of studies, review of inpatient medication list Patient seen and evaluated. No acute events overnight. Verbalizes no complaints. Looks comfortable and in no distress. Discussed with Dr. Carrillo in regards to his wound and expresses concern for evisceration given the wound being down to the peritoneum. He would like to evaluate the plan. Discussing some plans with colleagues to appropriately stabilize and treat this wound. Discussed with Gela about plan to continue hospital stay. Will update grandson later today. Constitutional: No fever, No chills Respiratory: No cough, No shortness of breath Cardiovascular: No chest pain, No palpitations Abdomen: No pain, No nausea, No vomiting Musculoskeletal: + swelling (bilateral lower extremities) (Kisha Hansen , JUANIS-C) Medications Current Inpatient Medications Medications (Trade) Dose Ordered Sig/Andrzej Route Start Time Stop Time Status Last Admin Dose Admin Acetaminophen (Tylenol Tab) 650 mg Q4H PRN PO 11/05/16 12:45 12/05/16 12:44 Al Hydrox/Mg Hydrox/Simethicone (Maalox Max Susp) 15 ml Q4H PRN PO 11/05/16 12:45 12/05/16 12:44 Magnesium Hydroxide (Milk Of Magnesia Susp) 30 ml Q12H PRN PO 11/05/16 12:45 12/05/16 12:44 Ondansetron HCl (Zofran Inj) 4 mg Q6H PRN IV 11/05/16 12:45 12/05/16 12:44 Polyethylene (Miralax Powder Packet) 17 gm DAILY PRN PO 11/05/16 12:45 12/05/16 12:44 Atenolol (Tenormin Tab) 25 mg DAILY PO 11/06/16 09:00 12/06/16 08:59 Future Hold 11/09/16 08:30 25 MG Docusate Sodium (coLACE CAP) 100 mg BID PO 11/05/16 21:00 12/05/16 20:59 11/15/16 08:59 100 MG Finasteride (Proscar Tab) 5 mg DAILY PO 11/06/16 09:00 12/06/16 08:59 11/15/16 08:59 5 MG Acetaminophen/ Hydrocodone Bitart ([place] 5/325 Tab) 1 tab Q4H PRN PO 11/05/16 12:45 11/19/16 12:44 11/10/16 10:29 1 TAB Multivitamins/ Minerals (Multivitamin W/ Minerals Tab) 1 tab DAILY PO 11/06/16 09:00 12/06/16 08:59 11/15/16 08:59 1 TAB Tamsulosin HCl (Flomax Cap) 0.4 mg DAILY PO 11/06/16 09:00 12/06/16 08:59 Future hold 11/15/16 11:54 0.4 MG Miscellaneous (Iv Fluids Completed) 1 ea PRN PRN N/A 11/05/16 13:30 11/05/17 13:29 Magnesium Oxide (Mag-Ox Tab) 400 mg QAM PO 11/06/16 09:00 12/06/16 08:59 11/15/16 08:59 400 MG Ferrous Sulfate (Feosol Tab) 325 mg BIDM PO 11/06/16 08:00 12/06/16 07:59 11/15/16 09:00 325 MG Salmeterol Xinafoate/ Fluticasone (Advair Diskus 250/50 Inh) 1 puff BID INH 11/06/16 09:00 12/06/16 08:59 11/15/16 08:58 1 PUFF Guaifenesin (Mucinex Contr Rel Tab) 1,200 mg Q12 PO 11/06/16 09:00 12/06/16 08:59 11/15/16 08:59 1,200 MG Albuterol/ Ipratropium (Duoneb) 3 ml QIDR INH 11/06/16 08:15 12/06/16 08:14 11/15/16 11:14 3 ML Albuterol/ Ipratropium (Duoneb) 3 ml Q2H PRN INH 11/06/16 08:30 12/06/16 08:29 Enteral Nutritional Formula (Boost Plus Vanilla) 1 can TIDM PO 11/06/16 16:45 12/06/16 16:44 11/15/16 13:10 1 CAN Potassium Chloride (Klor-Con Tab) 20 meq BID PO 11/07/16 21:00 12/07/16 20:59 11/15/16 08:59 20 MEQ Pantoprazole Sodium (Protonix Tab) 40 mg BID PO 11/10/16 21:00 12/10/16 20:59 11/15/16 08:59 40 MG Hydralazine HCl (HydrALAZINE INJ) 10 mg Q6 PRN IV. 11/13/16 10:45 12/13/16 10:44 Furosemide (Lasix Tab) 20 mg QAM PO 11/14/16 09:00 12/14/16 08:59 11/15/16 08:59 20 MG (Kisha Hansen PA-C) Objective Vital Signs Date Time Temp Pulse Resp B/P (MAP) Pulse Ox O2 Delivery O2 Flow Rate FiO2 11/15/16 11:16 92 15 93 Room Air 11/15/16 08:52 Room Air 11/15/16 08:00 36.3 88 16 130/70 (90) 92 Room Air 11/15/16 08:00 92 Room Air 11/15/16 07:09 78 16 96 Room Air 11/15/16 05:16 37.2 88 16 137/64 (88) 92 Room Air 95 101/39 (59) 101 94/49 (64) 11/14/16 23:19 Room Air 11/14/16 22:59 36.9 93 16 131/66 (87) 96 Room Air 11/14/16 19:33 81 16 96 Room Air 11/14/16 15:42 85 16 94 Room Air 11/14/16 15:25 Room Air 11/14/16 15:17 36.5 96 18 138/66 (90) Room Air (Kisha Hansen PA-C) Physical Exam General Appearance: no apparent distress, + thin Eyes: sclerae normal ENT: hearing grossly normal Neck: supple, no JVD, trachea midline Respiratory/Chest: lungs clear Cardiovascular: regular rate, rhythm, no gallop, no murmur Abdomen: normal bowel sounds, non tender, soft, + pertinent finding (LLQ colostomy) Extremities: no pedal edema Neurologic/Psychiatric: alert Skin: normal color, warm/dry (Kisha Hansen PA-C) Laboratory Results Last 24 Hours Test 11/15/16 06:18 White Blood Count 7.03 K/uL Red Blood Count 3.39 M/uL Hemoglobin 9.3 g/dL Hematocrit 29.5 % Mean Corpuscular Volume 87.0 fL Mean Corpuscular Hemoglobin 27.4 pg Mean Corpuscular Hemoglobin Concent 31.5 g/dl Platelet Count 320 K/uL Mean Platelet Volume 9.2 fL Neutrophils (%) (Auto) 72.1 % Lymphocytes (%) (Auto) 8.3 % Monocytes (%) (Auto) 9.8 % Eosinophils (%) (Auto) 7.7 % Basophils (%) (Auto) 1.7 % Neutrophils # (Auto) 5.07 K/uL Lymphocytes # (Auto) 0.58 K/uL Monocytes # (Auto) 0.69 K/uL Eosinophils # (Auto) 0.54 K/uL Basophils # (Auto) 0.12 K/uL RDW Standard Deviation 53.1 fL RDW Coefficient of Variation 16.7 % Immature Granulocyte % (Auto) 0.4 % Immature Granulocyte # (Auto) 0.03 K/uL Sodium Level 138 mmol/L Potassium Level 4.4 mmol/L Chloride Level 105 mmol/L Carbon Dioxide Level 30 mmol/L Anion Gap 3.0 mmol/L Blood Urea Nitrogen 21 mg/dl Creatinine 0.94 mg/dl Est Creatinine Clear Calc Drug Dose 63.4 ml/min Estimated GFR () 86.6 Estimated GFR (Non- 74.7 BUN/Creatinine Ratio 22.0 Random Glucose 90 mg/dl Calcium Level 10.2 mg/dl (Kisha Hansen, PA-C) Assessment and Plan 81 y/o male with a history of HTN, BPH, and recent perforated diverticulitis s/ p sigmoid colectomy and colostomy who presented to the ED on 11/05 from [facility] following a syncopal or near syncopal episode. Patient afebrile, VSS. BP was 121/82 on arrival, then dropped to 104/49. Head CT negative for acute findings. CXR shows emphysema but no evidence of consolidation. Trace pleural effusions cannot be excluded. EKG shows no ischemic changes. WBC 12.85. Hgb 8.6. PLT 715. UA positive for occult blood 2+. Syncope/Near Syncope: Acute Blood Loss Anemia vs Atenolol: RESOLVED - Total transfusion of PRBCs x 3 units - 11/05 and 11/07 - hemoglobin remains stable - ASA 81 mg on hold - Ferrous sulfate 325 mg BID - Continue to hold Atenolol and plan to D/C altogether - tolerating without rebound effects - GI followed - evidence of non-bleeding duodenal ulcer - Gen Surg following - wants to F/U in 2 weeks - no need for surgical intervention Cough: Fluid Overload vs Lower Resp Infection: - Outpatient antibiotics as well as inpatient - antibiotic course finished - Duonebs and Mucinex BID - Echo - EF 55-60%; no mention of diastolic dysfunction - Continue to hold Lozol - negative 21122 fluid balance Abdominal Wound Dehiscence S/P Sigmoid Colectomy and Colostomy 10/24 - Perforated Diverticulitis: - Milton removed 11/10 - wound dehiscence - Wound care following - wound is to the peritoneum and concern for lack of stabilization leading to evisceration Bilateral Lower Extremity Edema: IMPROVING - Bilateral Doppler U/S - no evidence of DVT - Lozol remains on hold - likely will need to avoid on D/C - Lasix 20 mg po daily - orthostatics remain + but states he is asymptomatic - likely can place Lasix PRN - lower extremity edema likely from hypoalbuminemia - Wound care following - non-stick dressings for blisters HTN: STABLE - Continue to hold atenolol with likely D/C - consideration for reinstitution if necessary by PCP BPH: - Proscar 5 mg daily and Flomax 0.4 mg daily DVT Prophylaxis: TEDs/SCDs; chemical means contraindicated due to anemia Code Status: FULL CODE Disposition: - Will have Dr. Carrillo see patient today - concern for wound stabilization - pending intervention hopeful D/C tomorrow Continued [facility] stay due to: other (wound stabilization) Discharge planning: rehab hospital (Kisha Hansen PA-C) Reviewed: Pt Seen/Exam by Me (Janel Rascon MD) History Physician Truck Hop Supervision Note: I interviewed and examined the patient. Discussed with JUANIS Hansen and agree with findings and plan as documented in the note. Any exceptions or clarifications are listed here: Wound vac placed today by Wound MD but set at much lower suction than usual. Pt feels fine, has no complaints. Orthostatics remain positive but pt is asymptomatic. Had to restart Flomax due to urinary retention Vitals reviewed, afebrile NAD, sitting in chair, Alert, awake RRR no mgr Lungs with diminished BS throughout, some upper airway insp and exp wheezes, no crackles Abd +BS, soft, NT, LLQ colostomy bag with stool green, superior incision with wound vac in place c/d/i, lower incision open to air with some steri strips and is well-healed Ext 1+ pitting edema, dressings not removed 81 yo male with recent perforated sigmoid diverticulitis with colectomy and colostomy, admitted with syncope and acute blood loss anemia, fluid overload. Found to have large nonbleeding duodenal ulcer, also with bleeding from incision and wound dehiscence. Hgb has stabilized, no further transfusion needed. Now with wound vac placement at lower suction pressure due to exposed peritoneum ,appreciate Wound MD management Leg edema secondary to hypoalbuminemia-ECHO with normal EF, has diuresed quite a bit and still has more to go--> cont lasix 20mg po daily prn -continue with good nutrition and Nutrition consult for wound healing -Keep Harrison in now and continue Flomax, will keep Harrison in to go to SNF -COPD-continue nebs, has finished out course of Levaquin for acute exacerbation COPD -continue bid PPI for large ulcer--> will likely need outpt GI f/u in future, may need f/u EGD Documented By: Janel Rascon (Janel Rascon MD)
[2016-11-16] VITALS (10 sets, daily range): BP systolic 94–137; BP diastolic 48–71; PULSE 83–103; TEMP 36.8–37.3; O2SAT 91–95
[2016-11-16] MEDS: ALBUT/IPRATROP 3MG/0.5MG NEB 3 ML VIAL INH SCH ×4 (07:03→20:49)
[2016-11-16] MEDS: POTASSIUM CHLORIDE 20 MEQ TABCR PO SCH ×2 (07:52→21:39)
[2016-11-16] MEDS: DOCUSATE SODIUM 100 MG CAP PO SCH ×2 (07:52→21:39)
[2016-11-16] MEDS: FLUTICASONE/SALMETEROL 250/50 (ADVAIR) 14 PUFF/1 INHALER INH SCH ×2 (07:52→21:38)
[2016-11-16] MEDS: FUROSEMIDE 20 MG TAB PO SCH (07:52)
[2016-11-16] MEDS: FERROUS SULFATE 325 MG TAB PO SCH ×2 (07:52→17:54)
[2016-11-16] MEDS: BOOST PLUS VANILLA PO SCH ×6 (07:52→17:45)
[2016-11-16] MEDS: TAMSULOSIN HCL 0.4 MG CAP PO SCH (07:52)
[2016-11-16] MEDS: FINASTERIDE 5 MG TAB PO SCH (07:53)
[2016-11-16] MEDS: GUAIFENESIN 600 MG TABCR PO SCH ×2 (07:53→21:38)
[2016-11-16] MEDS: MAGNESIUM OXIDE 400 MG TAB PO SCH (07:53)
[2016-11-16] MEDS: PANTOprazole SOD 40 MG TAB PO SCH ×2 (07:53→21:38)
[2016-11-16] MEDS: CEROVITE ADV FORMULA TAB PO SCH (07:53)
[2016-11-16 08:25] LABS: HEMATOCRIT 28.1 % (42-52); MEAN CELL VOLUME 87.3 fL (80-100); MEAN PLATELET VOLUME 9.1 fL (7.4-10.4); PLATELET COUNT 313 K/uL (130-400); RED BLOOD COUNT 3.22 M/uL (4.7-6.1); WHITE BLOOD COUNT 8.11 K/uL (4.8-10.8)
[2016-11-16 08:45] LABS: BUN/CREATININE RATIO 23.8 (10-20); CALCIUM 10.4 mg/dl (8.5-10.1); CREATININE 0.77 mg/dl (0.60-1.40); POTASSIUM 4.3 mmol/L (3.5-5.1)
--- NOTE | 2016-11-16 13:38 | Surgery Progress Note ---
Surgery Progress Note Date of Service Nov 16, 2016. Subjective feeling well. eating. no pain. no new complaints. Objective Vital Signs: Date Time Temp Pulse Resp B/P (MAP) Pulse Ox O2 Delivery O2 Flow Rate FiO2 11/16/16 11:09 95 16 93 Room Air 11/16/16 07:45 Room Air 11/16/16 07:04 86 16 93 Room Air 11/16/16 07:01 36.9 83 18 137/65 (89) 93 Room Air 11/16/16 06:19 36.9 90 18 107/59 (75) 92 Room Air 11/16/16 06:18 36.8 89 19 117/63 (81) 91 Room Air 11/16/16 06:17 36.9 87 17 132/71 (91) 93 Room Air 11/15/16 23:48 Room Air 11/15/16 23:09 37.1 92 16 129/63 (85) 95 Room Air 11/15/16 20:00 98 16 88 Room Air 11/15/16 16:10 36.8 98 16 118/60 (79) 94 Room Air 113/55 (74) 94/47 (63) 11/15/16 15:26 88 18 91 Room Air 11/15/16 15:25 Room Air Abdomen: non tender, soft Incision(s): findings (wound vac in place) Laboratory Results: Results Past 24 Hours Test 11/16/16 07:41 Range/Units White Blood Count 8.11 4.8-10.8 K/uL Red Blood Count 3.22 4.7-6.1 M/uL Hemoglobin 9.0 14.0-18.0 g/dL Hematocrit 28.1 42-52 % Mean Corpuscular Volume 87.3 80-100 fL Mean Corpuscular Hemoglobin 28.0 25-34 pg Mean Corpuscular Hemoglobin Concent 32.0 32-36 g/dl RDW Standard Deviation 52.9 36.4-46.3 fL RDW Coefficient of Variation 16.4 11.5-14.5 % Platelet Count 313 130-400 K/uL Mean Platelet Volume 9.1 7.4-10.4 fL Sodium Level 136 136-145 mmol/L Potassium Level 4.3 3.5-5.1 mmol/L Chloride Level 104 98-107 mmol/L Carbon Dioxide Level 30 21-32 mmol/L Anion Gap 2.0 3-11 mmol/L Blood Urea Nitrogen 18 7-18 mg/dl Creatinine 0.77 0.60-1.40 mg/dl Est Creatinine Clear Calc Drug Dose 77.4 ml/min Estimated GFR () 97.3 Estimated GFR (Non- 83.9 BUN/Creatinine Ratio 23.8 10-20 Random Glucose 95 70-99 mg/dl Calcium Level 10.4 8.5-10.1 mg/dl Assessment & Plan 11/16/16 no acute surgical issues d/w harsh keyes...keep wound vac. f/u with me in office in 1-2 weeks no acute surgical issues follow H/H
--- NOTE | 2016-11-16 15:46 | Hospitalist Progress Note ---
Hospitalist Progress Note Date of Service Nov 16, 2016. (Kisha Hansen, PAIssaC) Subjective Pt evaluation today including: conversation w/ patient, conversation w/ family , physical exam, chart review, lab review, review of studies, review of inpatient medication list Patient seen and evaluated. Wound vac placed at low pressure. Discussed with Dr. Carrillo that it needs to be a KCI vac with low pressure for the next 3-4 weeks. Patient remains orthostatic but verbalizes no issues. Lasix will be changed to PRN and edema of legs likely related more to hypoalbuminemia. Wound vac without drainage in container but clear/brown colored drainage ( minimal) in tubing. Verbalizes no complaints with this. Colostomy with brown/ green stool. Continues to have a cough that he reports is largely non-productive. Continues to have intermittent wheeze and course sounds largely on the R side. Wound and vac will be assessed tomorrow and if no acute events or problems will be cleared for discharge tomorrow. Constitutional: No fever, No chills Respiratory: + cough, No sputum, No shortness of breath Cardiovascular: No chest pain, No palpitations Abdomen: No pain, No nausea, No vomiting Musculoskeletal: + swelling, No calf pain Male : No dysuria (Kisha Hansen, JUANIS-C) Medications Current Inpatient Medications Medications (Trade) Dose Ordered Sig/Andrzej Route Start Time Stop Time Status Last Admin Dose Admin Acetaminophen (Tylenol Tab) 650 mg Q4H PRN PO 11/05/16 12:45 12/05/16 12:44 Al Hydrox/Mg Hydrox/Simethicone (Maalox Max Susp) 15 ml Q4H PRN PO 11/05/16 12:45 12/05/16 12:44 Magnesium Hydroxide (Milk Of Magnesia Susp) 30 ml Q12H PRN PO 11/05/16 12:45 12/05/16 12:44 Ondansetron HCl (Zofran Inj) 4 mg Q6H PRN IV 11/05/16 12:45 12/05/16 12:44 Polyethylene (Miralax Powder Packet) 17 gm DAILY PRN PO 11/05/16 12:45 12/05/16 12:44 Atenolol (Tenormin Tab) 25 mg DAILY PO 11/06/16 09:00 12/06/16 08:59 Future Hold 11/09/16 08:30 25 MG Docusate Sodium (coLACE CAP) 100 mg BID PO 11/05/16 21:00 12/05/16 20:59 11/16/16 07:52 100 MG Finasteride (Proscar Tab) 5 mg DAILY PO 11/06/16 09:00 12/06/16 08:59 11/16/16 07:53 5 MG Acetaminophen/ Hydrocodone Bitart (Stephan 5/325 Tab) 1 tab Q4H PRN PO 11/05/16 12:45 11/19/16 12:44 11/10/16 10:29 1 TAB Multivitamins/ Minerals (Multivitamin W/ Minerals Tab) 1 tab DAILY PO 11/06/16 09:00 12/06/16 08:59 11/16/16 07:53 1 TAB Tamsulosin HCl (Flomax Cap) 0.4 mg DAILY PO 11/06/16 09:00 12/06/16 08:59 Future hold 11/16/16 07:52 0.4 MG Miscellaneous (Iv Fluids Completed) 1 ea PRN PRN N/A 11/05/16 13:30 11/05/17 13:29 Magnesium Oxide (Mag-Ox Tab) 400 mg QAM PO 11/06/16 09:00 12/06/16 08:59 11/16/16 07:53 400 MG Ferrous Sulfate (Feosol Tab) 325 mg BIDM PO 11/06/16 08:00 12/06/16 07:59 11/16/16 07:52 325 MG Salmeterol Xinafoate/ Fluticasone (Advair Diskus 250/50 Inh) 1 puff BID INH 11/06/16 09:00 12/06/16 08:59 11/16/16 07:52 1 PUFF Guaifenesin (Mucinex Contr Rel Tab) 1,200 mg Q12 PO 11/06/16 09:00 12/06/16 08:59 11/16/16 07:53 1,200 MG Albuterol/ Ipratropium (Duoneb) 3 ml QIDR INH 11/06/16 08:15 12/06/16 08:14 11/16/16 15:26 3 ML Albuterol/ Ipratropium (Duoneb) 3 ml Q2H PRN INH 11/06/16 08:30 12/06/16 08:29 Enteral Nutritional Formula (Boost Plus Vanilla) 1 can TIDM PO 11/06/16 16:45 12/06/16 16:44 11/16/16 11:27 1 CAN Potassium Chloride (Klor-Con Tab) 20 meq BID PO 11/07/16 21:00 12/07/16 20:59 11/16/16 07:52 20 MEQ Pantoprazole Sodium (Protonix Tab) 40 mg BID PO 11/10/16 21:00 12/10/16 20:59 11/16/16 07:53 40 MG Hydralazine HCl (HydrALAZINE INJ) 10 mg Q6 PRN IV. 11/13/16 10:45 12/13/16 10:44 Furosemide (Lasix Tab) 20 mg QAM PRN PO 11/17/16 09:00 12/14/16 08:59 (Kisha aHnsen, JUANIS-C) Objective Vital Signs Date Time Temp Pulse Resp B/P (MAP) Pulse Ox O2 Delivery O2 Flow Rate FiO2 11/16/16 15:08 37.1 98 16 126/63 (84) 93 Room Air 110/55 (73) 94/48 (63) 11/16/16 11:09 95 16 93 Room Air 11/16/16 07:45 Room Air 11/16/16 07:04 86 16 93 Room Air 11/16/16 07:01 36.9 83 18 137/65 (89) 93 Room Air 11/16/16 06:19 36.9 90 18 107/59 (75) 92 Room Air 11/16/16 06:18 36.8 89 19 117/63 (81) 91 Room Air 11/16/16 06:17 36.9 87 17 132/71 (91) 93 Room Air 11/15/16 23:48 Room Air 11/15/16 23:09 37.1 92 16 129/63 (85) 95 Room Air 11/15/16 20:00 98 16 88 Room Air 11/15/16 16:10 36.8 98 16 118/60 (79) 94 Room Air 113/55 (74) 94/47 (63) (Kisha Hansen, PA-C) Physical Exam General Appearance: no apparent distress, + thin Eyes: sclerae normal ENT: hearing grossly normal Neck: supple, no JVD, trachea midline Respiratory/Chest: no respiratory distress, no accessory muscle use, + wheezing (intermittent in R mid-lung; minimal course rhonchi) Cardiovascular: regular rate, rhythm, no gallop, no murmur Abdomen: normal bowel sounds, non tender, soft, + pertinent finding (colostomy in LLQ with green/brown stool; wound vac in place with surrounding skin without erythema, edema, purulent drainage) Extremities: + swelling (continues to have pitting edema in bilateral lower extremities with legs wrapped) Neurologic/Psychiatric: alert Skin: normal color, warm/dry (Kisha Hansen, PA-C) Laboratory Results Last 24 Hours Test 11/16/16 07:41 White Blood Count 8.11 K/uL Red Blood Count 3.22 M/uL Hemoglobin 9.0 g/dL Hematocrit 28.1 % Mean Corpuscular Volume 87.3 fL Mean Corpuscular Hemoglobin 28.0 pg Mean Corpuscular Hemoglobin Concent 32.0 g/dl RDW Standard Deviation 52.9 fL RDW Coefficient of Variation 16.4 % Platelet Count 313 K/uL Mean Platelet Volume 9.1 fL Sodium Level 136 mmol/L Potassium Level 4.3 mmol/L Chloride Level 104 mmol/L Carbon Dioxide Level 30 mmol/L Anion Gap 2.0 mmol/L Blood Urea Nitrogen 18 mg/dl Creatinine 0.77 mg/dl Est Creatinine Clear Calc Drug Dose 77.4 ml/min Estimated GFR () 97.3 Estimated GFR (Non- 83.9 BUN/Creatinine Ratio 23.8 Random Glucose 95 mg/dl Calcium Level 10.4 mg/dl (Kisha Hansen, PA-C) Assessment and Plan 81 y/o male with a history of HTN, BPH, and recent perforated diverticulitis s/ p sigmoid colectomy and colostomy who presented to the ED on 11/05 from [facility] following a syncopal or near syncopal episode. Patient afebrile, VSS. BP was 121/82 on arrival, then dropped to 104/49. Head CT negative for acute findings. CXR shows emphysema but no evidence of consolidation. Trace pleural effusions cannot be excluded. EKG shows no ischemic changes. WBC 12.85. Hgb 8.6. PLT 715. UA positive for occult blood 2+. Syncope/Near Syncope: Acute Blood Loss Anemia vs Atenolol: RESOLVED - Total transfusion of PRBCs x 3 units - 11/05 and 11/07 - hemoglobin remains stable - ASA 81 mg on hold - Ferrous sulfate 325 mg BID - Continue to hold Atenolol and plan to D/C altogether - tolerating without rebound effects - GI followed - evidence of non-bleeding duodenal ulcer - plan for F/U EGD in 8 weeks and follow-up as outpatient - Gen Surg following - wants to F/U in 1-2 weeks Cough: Fluid Overload vs Lower Resp Infection: - Outpatient antibiotics as well as inpatient - antibiotic course finished - Duonebs and Mucinex BID - Echo - EF 55-60%; no mention of diastolic dysfunction - Continue to hold Lozol - negative [id number] fluid balance - Repeat CXR - pending Abdominal Wound Dehiscence S/P Sigmoid Colectomy and Colostomy 10/24 - Perforated Diverticulitis: - [place] removed 11/10 - wound dehiscence - Wound care following - wound is to the peritoneum and concern for lack of stabilization leading to evisceration - low pressure wound vac at 75 Bilateral Lower Extremity Edema: STABLE - Likely more from hypoalbuminemia - Bilateral Doppler U/S - no evidence of DVT - Lozol remains on hold - likely will need to avoid on D/C - Lasix 20 mg po PRN - orthostatics remain + but states he is asymptomatic - Wound care following - non-stick dressings for blisters HTN: STABLE - Continue to hold atenolol with likely D/C - consideration for reinstitution if necessary by PCP BPH: - Proscar 5 mg daily and Flomax 0.4 mg daily DVT Prophylaxis: TEDs/SCDs; chemical means contraindicated due to anemia Code Status: FULL CODE Disposition: - Dr. Carrillo will evaluate wound and adjust wound vac tomorrow - if no acute events will be cleared for D/C -- Discussed with case management and auth will need submitted after evaluation - possible remaining stay 1-2 days Continued [facility] stay due to: other (wound stabilization) Discharge planning: rehab hospital (Kisha Hansen, SHILPA) Reviewed: Pt Seen/Exam by Me (Janel Rascon MD) History Physician Industrial Engineering Analyst Supervision Note: I interviewed and examined the patient. Discussed with JUANIS Hansen and agree with findings and plan as documented in the note. Any exceptions or clarifications are listed here: Pt denies abd pain. He does have a persistent cough and abnormal CXR with slightly worse right basilar opacity despite prolonged courses of Zosyn, then Augmentin as outpt, then more Zosyn, Vanc x 2 days, and Levaquin x7 days this admission. Afebrile, cough nonproductive, no leukocytosis. Vitals reviewed, afebrile NAD, sitting in chair, Alert, awake RRR no mgr Lungs with diminished BS throughout, +rhonchi on right lower and mid lung doran Abd +BS, soft, NT, LLQ colostomy bag with stool green, superior incision with wound vac in place c/d/i, lower incision open to air with some steri strips and is well-healed Ext 1+ pitting edema, dressings not removed 81 yo male with recent perforated sigmoid diverticulitis with colectomy and colostomy, admitted with syncope and acute blood loss anemia, fluid overload. Found to have large nonbleeding duodenal ulcer, also with bleeding from incision and wound dehiscence. Hgb has stabilized, no further transfusion needed. Now with wound vac placement at lower suction pressure due to exposed peritoneum ,appreciate Wound MD management Leg edema secondary to hypoalbuminemia-ECHO with normal EF, has diuresed quite a bit and still has more to go--> cont lasix 20mg po daily -continue with good nutrition and Nutrition consult for wound healing -Keep [place] in now and continue Flomax, will keep Harrison in to go to SNF -COPD-continue nebs, has finished out course of Levaquin for acute exacerbation COPD but with persistent chronic cough likely from COPD, CXR slightly worse today with pleural effusions and right basilar opacity----> check CT CHest, hold off on further abx at this time -continue bid PPI for large ulcer--> will likely need outpt GI f/u in future, will need f/u EGD in 6-8 weeks Documented By: Janel Rascon (Janel Rascon MD)
--- NOTE | 2016-11-16 16:20 | DIAGNOSTIC IMAGING REPORT ---
CHEST 2 VIEWS ROUTINE CLINICAL HISTORY: Cough SYNCOPE COMPARISON STUDY: 11/05/2016 FINDINGS: There is evidence for pulmonary emphysema. There is calcified left midlung zone granuloma. There is no failure. There are small bilateral pleural effusions. There is a hazy airspace opacity within the posterior aspect of the right lower lobe. IMPRESSION: 1. Pulmonary emphysema 2. Small bilateral pleural effusions 3. Hazy right basilar airspace opacity Electronically signed by: Tom Luong M.D. 11/16/2016 4:19 PM Dictated Date/Time: 11/16/2016 4:17 PM
[2016-11-16] MEDS ORDERED: PRT40 PO (17:25)
--- NOTE | 2016-11-16 17:39 | Discharge Instructions ---
Discharge Instructions Date of Service Nov 16, 2016. Admission Reason for Admission: Acute Blood Loss Anemia, Syncope Discharge Discharge Diagnosis / Problem: Orthostatic Hypotension and Surgical Wound Dehiscence,Duodenal ulcer Discharge Goals Goal(s): Decrease discomfort, Improve function, Increase independence Activity Recommendations Activity Level: Assistance Required Therapies: Physical Therapy, Occupational Therapy ABSOLUTELY NO ABDOMINAL EXERCISES AND NO EXERCISES THAT WOULD CAUSE ASH YENNY OR INCREASED INTRABDOMINAL PRESSURE. . Additional Information Patient informed of condition: Yes Advance Directives: Yes DNR: No Level of Care: Acute Rehab Communicable Disease: No Prognosis: Improving [place] Catheter: Yes Instructions / Follow-Up Instructions / Follow-Up 81 y/o male with a history of HTN, BPH, and recent perforated diverticulitis s/ p sigmoid colectomy and colostomy who presented to the ED on 11/05 from [facility] following a syncopal or near syncopal episode. Patient afebrile, VSS. BP was 121/82 on arrival, then dropped to 104/49. Head CT negative for acute findings. CXR shows emphysema but no evidence of consolidation. Trace pleural effusions cannot be excluded. EKG shows no ischemic changes. WBC 12.85. Hgb 8.6. PLT 715. UA positive for occult blood 2+. Syncope/Near Syncope: Acute Blood Loss Anemia vs Atenolol: RESOLVED - Continues to have positive orthostatic BP readings but reporting being asymptomatic - no syncopal episodes with D/C atenolol - Total transfusion of PRBCs x 3 units - 11/05 and 11/07 - hemoglobin remains stable in 9-10 range - recommend repeat CBC in 2-3 days to monitor continued stabilization - ASA 81 mg on hold - would recommend to continue holding at this time given gastric ulcer and wound dehiscence - can likely be restarted soon now that PPI coverage provided and as wound heals - Ferrous sulfate 325 mg BID - Continue to hold Atenolol and plan to D/C altogether - tolerating without rebound effects - GI followed - evidence of non-bleeding duodenal ulcer - plan for F/U EGD in 7 weeks and follow-up as outpatient -- This will be performed by [facility] - Dr. Sosa - will need follow-up appointment for this - Gen Surg following - wants to F/U in 1-2 weeks - Dr. Silver Cough: acute on chronic COPD - Outpatient antibiotics as well as inpatient - antibiotic course finished with 7 days of Levaquin -CT Chest shows small bilat pleural effusions, no infiltrate on 11/17 - Duonebs and Mucinex BID - Echo - EF 55-60%; no mention of diastolic dysfunction - D/C'd Lozol - negative 45539+ fluid balance - Repeat CXR 11/16 - without failure; evidence of emphysema and hazy RLL opacity which was present on comparison study - remains afebrile and without leukocytosis Abdominal Wound Dehiscence S/P Sigmoid Colectomy and Colostomy 10/24 - Perforated Diverticulitis: - [place] removed 11/10 - wound dehiscence occurred - Wound care following - wound is to the peritoneum and concern for lack of stabilization leading to evisceration - keep low pressure KCI wound vac at 75 -- Dr. Carrillo has been following patient - expresses to use KCI low pressure wound vac - likely 3-4 weeks and prefers KCI vacs and requests to not use other brand vacs -change wound vac with dressing as per Wound Care notes MWF -follow up with [facility], Dr. Jagdish Carrillo in 1 week, f/u Dr. Silver 1-2 weeks Bilateral Lower Extremity Edema: STABLE - Likely more from hypoalbuminemia - with extensive diuresis legs remain edematous but improved - appetite has improved and Boost supplementation implemented - Bilateral Doppler U/S - no evidence of DVT -dc Lozol - Lasix 20 mg po PRN - orthostatics remain + but states he is asymptomatic - Wound care following - non-stick dressings for blisters of lower extremities which are healed HTN: STABLE - Continue to hold atenolol with likely D/C - consideration for reinstitution if necessary by PCP BPH: - Proscar 5 mg daily and Flomax 0.4 mg daily - Has had some urinary retention as Flomax was initially held due to orthostasis - plan to leave Harrison in for about a week and do void trial in 1 week DVT Prophylaxis: TEDs/SCDs; chemical means contraindicated due to anemia Code Status: FULL CODE Disposition: - Repeat CBC in 2-3 days - GI F/U in 7 weeks for likely repeat EGD - Dr. Sosa - Gen Surg F/U in 1-2 week - Dr. Silver - Wound care F/U and continued wound vac Current Hospital Diet Patient's current hospital diet: Low Fiber Diet Discharge Diet Recommended Diet: Low Fiber Diet Procedures Procedures Performed: CT Chest Chest xray ECHO Doppler venous lower extremities Head CT Pending Studies Studies pending at discharge: no Physician Orders On Transfer Dressing Changes: Wound Vac Mon/Sun/Sun IV Therapy: none Vital Signs: Routine Weigh: Routine POLST Discussion: Not Applicable Laboratory Results Last 24 Hours Test 11/17/16 06:47 White Blood Count 8.59 K/uL Red Blood Count 3.20 M/uL Hemoglobin 9.0 g/dL Hematocrit 28.0 % Mean Corpuscular Volume 87.5 fL Mean Corpuscular Hemoglobin 28.1 pg Mean Corpuscular Hemoglobin Concent 32.1 g/dl RDW Standard Deviation 53.2 fL RDW Coefficient of Variation 16.6 % Platelet Count 313 K/uL Mean Platelet Volume 9.1 fL Sodium Level 138 mmol/L Potassium Level 4.2 mmol/L Chloride Level 104 mmol/L Carbon Dioxide Level 30 mmol/L Anion Gap 4.0 mmol/L Blood Urea Nitrogen 18 mg/dl Creatinine 0.72 mg/dl Est Creatinine Clear Calc Drug Dose 82.8 ml/min Estimated GFR () 100.0 Estimated GFR (Non- 86.3 BUN/Creatinine Ratio 25.4 Random Glucose 94 mg/dl Calcium Level 10.3 mg/dl Magnesium Level 2.2 mg/dl Total Bilirubin 0.2 mg/dl Direct Bilirubin < 0.1 mg/dl Aspartate Amino Transf (AST/SGOT) 12 U/L Alanine Aminotransferase (ALT/SGPT) 13 U/L Alkaline Phosphatase 64 U/L Total Protein 5.0 gm/dl Albumin 1.9 gm/dl Medical Emergencies . Who to Call and When: Medical Emergencies: If at any time you feel your situation is an emergency, please call 911 immediately. . Non-Emergent Contact Non-Emergency issues call your: Primary Care Provider, Surgeon Call Non-Emergent contact if: you have a fever, your pain is concerning you, wound has increased drainage, wound has increased redness, wound has increased pain, you have any medication questions . . "Provider Documentation" section prepared by Kisha Hansen. . Core Measure Problem Core Measures: None [place] Drug Monitoring Program Search Results: patient reviewed within database, no issues identified (last 2012)
[2016-11-17] VITALS (7 sets, daily range): BP systolic 117–138; BP diastolic 62–68; PULSE 85–97; TEMP 36.8–37.1; O2SAT 91–100
[2016-11-17] MEDS: ALBUT/IPRATROP 3MG/0.5MG NEB 3 ML VIAL INH SCH ×4 (07:12→20:29)
[2016-11-17 07:29] LABS: MEAN CELL VOLUME 87.5 fL (80-100); MEAN CORPUSCULAR HEMOGLOBIN 28.1 pg (25-34); MEAN CORPUSCULAR HGB CONC 32.1 g/dl (32-36); MEAN PLATELET VOLUME 9.1 fL (7.4-10.4); PLATELET COUNT 313 K/uL (130-400); WHITE BLOOD COUNT 8.59 K/uL (4.8-10.8)
[2016-11-17] MEDS: FLUTICASONE/SALMETEROL 250/50 (ADVAIR) 14 PUFF/1 INHALER INH SCH (07:44)
[2016-11-17] MEDS: FINASTERIDE 5 MG TAB PO SCH (07:45)
[2016-11-17] MEDS: FERROUS SULFATE 325 MG TAB PO SCH ×2 (07:45→18:37)
[2016-11-17] MEDS: BOOST PLUS VANILLA PO SCH ×6 (07:45→18:37)
[2016-11-17] MEDS: POTASSIUM CHLORIDE 20 MEQ TABCR PO SCH (07:45)
[2016-11-17] MEDS: GUAIFENESIN 600 MG TABCR PO SCH (07:45)
[2016-11-17] MEDS: PANTOprazole SOD 40 MG TAB PO SCH (07:45)
[2016-11-17] MEDS: TAMSULOSIN HCL 0.4 MG CAP PO SCH (07:45)
[2016-11-17] MEDS: MAGNESIUM OXIDE 400 MG TAB PO SCH (07:45)
[2016-11-17] MEDS: DOCUSATE SODIUM 100 MG CAP PO SCH (07:45)
[2016-11-17] MEDS: CEROVITE ADV FORMULA TAB PO SCH (07:45)
[2016-11-17 08:04] LABS: ALT/SGPT 13 U/L (12-78); BLOOD UREA NITROGEN 18 mg/dl (7-18); BUN/CREATININE RATIO 25.4 (10-20); CALCIUM 10.3 mg/dl (8.5-10.1); CARBON DIOXIDE 30 mmol/L (21-32); CHLORIDE 104 mmol/L (98-107); CREATININE 0.72 mg/dl (0.60-1.40); GLUCOSE 94 mg/dl (70-99); MAGNESIUM 2.2 mg/dl (1.8-2.4); POTASSIUM 4.2 mmol/L (3.5-5.1); SODIUM 138 mmol/L (136-145)
[2016-11-17 08:07] LABS: ALKALINE PHOSPHATASE 64 U/L (45-117); AST/SGOT 12 U/L (15-37)
[2016-11-17] MEDS ORDERED: OPTIRAY 320 IV PRN (08:30)
--- NOTE | 2016-11-17 08:48 | DIAGNOSTIC IMAGING REPORT ---
(CHEST) THORAX WITH CT DOSE: 304.89 mGycm HISTORY: Pneumonia right lower lung opacity, r/o infiltrate/PNA TECHNIQUE: Multiaxial CT images of the chest were performed following the intravenous administration of contrast. A dose lowering technique was utilized adhering to the principles of ALARA. COMPARISON: 11/16/2016 FINDINGS: No evidence for focal infiltrate. Moderate emphysematous change. Calcified granuloma left upper lobe. No significant mediastinal or hilar adenopathy. Bilateral pleural effusions. Mild bibasilar atelectasis. IMPRESSION: 1. Small bilateral pleural effusions. 2. Mild bibasilar atelectasis. 3. Moderate emphysematous change. 4. No acute infiltrate. The above report was generated using voice recognition software. It may contain grammatical, syntax or spelling errors. Electronically signed by: Jagdish Shrestha M.D. 11/17/2016 8:47 AM Dictated Date/Time: 11/17/2016 8:44 AM
[2016-11-17] MEDS ORDERED: FUROSEMIDE 20 MG TAB PO PRN (09:00)
[2016-11-17] MEDS ORDERED: LSX20 PO (16:38)
[2016-11-17] MEDS ORDERED: ACET-1047 PO (16:38)
[2016-11-17] MEDS ORDERED: NUTR-977 PO (16:38)
[2016-11-17] MEDS ORDERED: IPRASOL4 INH (16:38)
--- NOTE | 2016-11-21 16:13 | Discharge Summary ---
Discharge Summary Date of Service Nov 17, 2016. Discharge Summary Admission Date: Nov 05, 2016 at 15:48 Discharge Date: Nov 17, 2016 Discharge Disposition: Rehab Principal Diagnosis: Syncope,orthostasis, acute blood loss anemia Problems/Secondary Diagnoses: HTN BPH H/o perforated diverticulitis s/p sigmoid colectomy and colostomy PUD with +Hemoccult Wound dehiscence Hypoalbuminemia Lower extremity edema Acute exacerbation of COPD Small bilateral pleural effusions Acute urinary retention Hyperparathyroidism Hypercalcemia Procedures: 1. Head CT-negative for acute findings 2. CHEST ONE VIEW PORTABLE CLINICAL HISTORY: new onset seizure COMPARISON STUDY: 10/24/2016 FINDINGS: The endotracheal tube has been removed. There is moderate to severe pulmonary emphysema. There is a calcified left upper lung zone granuloma. There is no focal pulmonary consolidation. There is no failure. Trace pleural effusions cannot be excluded.[ IMPRESSION: Emphysema. No evidence of focal pulmonary consolidation 3. ULTRASOUND VENOUS DOPPLER LWR EXT BILA CLINICAL HISTORY: lower extremity edema COMPARISON STUDY: No previous studies for comparison. FINDINGS: Real-time and color flow Doppler imaging were performed. Flow was seen within the femoral, popliteal and calf veins with no intraluminal thrombus demonstrated. The saphenous vein is patent. There is a left popliteal cyst measuring 24 x 2 x 49 mm. IMPRESSION: No evidence of lower extremity DVT 4. CHEST 2 VIEWS ROUTINE CLINICAL HISTORY: Cough SYNCOPE COMPARISON STUDY: 11/05/2016 FINDINGS: There is evidence for pulmonary emphysema. There is calcified left midlung zone granuloma. There is no failure. There are small bilateral pleural effusions. There is a hazy airspace opacity within the posterior aspect of the right lower lobe. IMPRESSION: 1. Pulmonary emphysema 2. Small bilateral pleural effusions 3. Hazy right basilar airspace opacity 5. (CHEST) THORAX WITH CT DOSE: 304.89 mGycm HISTORY: Pneumonia right lower lung opacity, r/o infiltrate/PNA TECHNIQUE: Multiaxial CT images of the chest were performed following the intravenous administration of contrast. A dose lowering technique was utilized adhering to the principles of ALARA. COMPARISON: 11/16/2016 FINDINGS: No evidence for focal infiltrate. Moderate emphysematous change. Calcified granuloma left upper lobe. No significant mediastinal or hilar adenopathy. Bilateral pleural effusions. Mild bibasilar atelectasis. IMPRESSION: 1. Small bilateral pleural effusions. 2. Mild bibasilar atelectasis. 3. Moderate emphysematous change. 4. No acute infiltrate. 6. ECHO: * Left ventricular systolic function is normal. * No regional wall motion abnormalities noted. * Ejection Fraction = 55-60%. * No significant valvular pathology. 7. EGD: Impression: - LA Grade D reflux esophagitis. Biopsied. - Normal stomach. Biopsied. - One non-bleeding duodenal ulcer with a clean ulcer base (Gustavo Class III). Recommendation: - [facility] - Continue IV PPI infusion given size of ulcer for at least overnight - If has evidence of bleeding, then will need surgical vs IR intervention as ulcer is unlikely too big for endsoscopic therapy. - OK for clear liquids today Consultations: General Surgery Gastroenterology Wound Care Medication Reconciliation New Medications: Acetaminophen (Mapap) 325 Mg Tab 650 MG PO Q4H PRN for Pain or Fever for 30 Days Enteral Nutrition Formula (Ensure Plus Vanilla) 1 Can Liqd 1 CAN PO TIDM for 30 Days Ferrous Sulfate (Ferrous Sulfate) 325 Mg Tab 325 MG PO BIDM for 14 Days, TAB Fluticasone Prop/Salmeterol (Advair Diskus 250-50 Mcg/Dose) 14 Puff/1 Inhaler Aerp 1 PUFF INH BID for 14 Days Furosemide (Furosemide) 20 Mg Tab 20 MG PO QAM PRN for Edema for 14 Days, #14 TAB Furosemide (Furosemide) 20 Mg Tab 20 MG PO QAM PRN for Edema for 30 Days, #30 TAB Guaifenesin Ext Rel (Mucinex Ext Rel) 600 Mg Tabcr 1200 MG PO Q12 for 7 Days Ipratropium-Albuterol (Duoneb) 3 Ml Nebu 3 ML INH QIDR for 30 Days Magnesium Oxide (Magnesium-Oxide) 400 Mg Tab 400 MG PO QAM PRN for With Lasix for 14 Days, #14 TAB Pantoprazole (Pantoprazole Sodium) 40 Mg Tab 40 MG PO BID for 14 Days, #28 TAB Potassium Chloride (Klor-Con M20) 20 Meq Tabcr 20 MEQ PO DAILY PRN for With Lasix for 14 Days Continued Medications: Docusate Sodium (Docusate Sodium) 100 Mg Cap 1 CAP PO BID, CAP Finasteride (Proscar) 5 Mg Tab 5 MG PO DAILY, TAB Multiple Vitamins W/ Minerals (Centrum Adults) 1 Tab Tab 1 TAB PO DAILY Ocuvite Preservision (Ocuvite Preservision) 1 Tab Tab 1 TAB PO DAILY, TAB Tamsulosin Hcl (Flomax) 0.4 Mg Cap 0.4 MG PO DAILY, CAP [Boost] () 1 CAN LIQD 1 CAN PO TIDM (This prescription has been renewed) Discontinued Medications: Amoxicillin & Pot Clavulanate (Augmentin 875-125 mg) 1 Tab Tab 875 MG PO BID, #10 TAB Aspirin (Aspirin) 81 Mg Tab 1 TAB PO DAILY for 90 Days, #90 TAB 3 Refills Atenolol (Tenormin) 50 Mg Tab 50 MG PO DAILY, TAB Indapamide (Lozol) 1.25 Mg Tab 1.25 MG PO DAILY, TAB Discharge Exam Vitals reviewed, afebrile NAD, lying in bed with wound vac off, Alert, awake RRR no mgr Lungs much clearer today, no wcr Abd +BS, soft, NT, LLQ colostomy bag with stool green, wound is open at the superior portion about 3-4 cm across at widest portion, exposed peritoneum, no undermining exists, no purulence, no surrounding erythema Ext 1+ pitting edema, dressings not removed Review of Systems: Constitutional: No fever, No chills Eyes: No problem reported ENT: No problem reported Respiratory: + cough (chronic mild) Cardiovascular: + edema, No chest pain, No palpitations Abdomen: No pain, No nausea, No vomiting, No constipation Musculoskeletal: No problem reported Genitourinary - Male: + urinary retention Neurologic: No problem reported Psychiatric: No problem reported Endocrine: No problem reported Hematologic / Lymphatic: No problem reported Integumentary: No problem reported Hospital Course 81 y/o male with a history of HTN, BPH, and recent perforated diverticulitis s/ p sigmoid colectomy and colostomy who presented to the ED on 11/05 from [facility] following a syncopal or near syncopal episode. Patient afebrile, VSS. BP was 121/82 on arrival, then dropped to 104/49. Head CT negative for acute findings. CXR shows emphysema but no evidence of consolidation. Trace pleural effusions cannot be excluded. EKG shows no ischemic changes. WBC 12.85. Hgb 8.6. PLT 715. UA positive for occult blood 2+. Syncope/Near Syncope: Acute Blood Loss Anemia vs Atenolol: RESOLVED - Continues to have positive orthostatic BP readings but reporting being asymptomatic - no syncopal episodes with D/C atenolol - Total transfusion of PRBCs x 3 units - 11/05 and 11/07 - hemoglobin remains stable in 9-10 range - recommend repeat CBC in 2-3 days to monitor continued stabilization - ASA 81 mg on hold - would recommend to continue holding at this time given gastric ulcer and wound dehiscence - can likely be restarted soon now that PPI coverage provided and as wound heals - Ferrous sulfate 325 mg BID - Continue to hold Atenolol and plan to D/C altogether - tolerating without rebound effects - GI followed - evidence of non-bleeding duodenal ulcer - plan for F/U EGD in 7 weeks and follow-up as outpatient -- This will be performed by [facility] - Dr. Sosa - will need follow-up appointment for this - Gen Surg following - wants to F/U in 1-2 weeks - Dr. Silver Cough: acute exacerbation COPD - Outpatient antibiotics as well as inpatient - antibiotic course finished with 7 days of Levaquin -CT Chest shows small bilat pleural effusions, no infiltrate on 11/17 - Duonebs and Mucinex BID - Echo - EF 55-60%; no diastolic dysfunction - D/C'd Lozol - negative [id number] fluid balance - Repeat CXR 11/16 - without failure; evidence of emphysema and hazy RLL opacity which was present on comparison study - remains afebrile and without leukocytosis Abdominal Wound Dehiscence S/P Sigmoid Colectomy and Colostomy 10/24 - Perforated Diverticulitis: - Industry removed 11/10 - wound dehiscence occurred - Wound care following - wound is exposed down to the peritoneum and concern for lack of stabilization leading to evisceration - keep low pressure KCI wound vac at 75 -- Dr. Carrillo has been following patient - expresses to use KCI low pressure wound vac - likely 3-4 weeks and prefers KCI vacs and requests to not use other brand vacs -change wound vac with dressing as per Wound Care notes MWF -follow up with [facility], Dr. Jagdish Carrillo in 1 week, f/u Dr. Silver 1-2 weeks Bilateral Lower Extremity Edema: STABLE - Likely more from hypoalbuminemia - with extensive diuresis legs remain edematous but improved - appetite has improved and Boost supplementation implemented - Bilateral Doppler U/S - no evidence of DVT -dc Lozol - Lasix 20 mg po PRN - orthostatics remain + but states he is asymptomatic - Wound care following - non-stick dressings for blisters of lower extremities which are healed HTN: STABLE - Continue to hold atenolol with likely D/C - consideration for reinstitution if necessary by PCP BPH: - Proscar 5 mg daily and Flomax 0.4 mg daily - Has had some urinary retention as Flomax was initially held due to orthostasis - plan to leave [place] in for about a week and do void trial in 1 week Hyperparathyroidism, Hypercalcemia- corrected calcium close to 11. iPTH checked last admission and was elevated at 164. No signs or symptoms related to hypercalcemia. No CKD. Vit D level not checked in our records. Most likely primary hyperparathyroidism -should be followed as an outpatient -should have Endocrine workup and possible SESTAMIBI scan parathyroid glands -as outpatient, would check Vit D25-OH, DEXA scan, follow corrected calcium levels, and watch for signs/symptoms of hypercalcemic crisis DVT Prophylaxis: TEDs/SCDs; chemical means contraindicated due to anemia Code Status: FULL CODE Disposition: - Repeat CBC in 2-3 days - GI F/U in 7 weeks for likely repeat EGD - Dr. Sosa - Gen Surg F/U in 1-2 week - Dr. Silver - Wound care F/U and continued wound vac Total Time Spent: Greater than 30 minutes This includes examination of the patient, discharge planning, medication reconciliation, and communication with other providers. Discharge Instructions Please refer to the electronic Patient Visit Report (Discharge Instructions) for additional information. Additional [facility] To [facility]; Mateus Boyd M.D.
[2016-11-27] MEDS ORDERED: VNTHFA/IN INH (14:39)
[2016-11-27] MEDS ORDERED: ALBU4TAB10 PO (14:39)
[2017-01-10] MEDS ORDERED: KFL500 PO (17:06)
[2017-01-10] MEDS ORDERED: CINA0.42 PO (17:06)
[2017-01-10] MEDS ORDERED: LCTX PO (17:06)
== END 2016-11-17 20:45 | DRG 907 ==
LOC: EDBD 08:30 → C.EDB 08:32 → C.2T 12:54 → ENRESERV 13:04 → OBSVTOIN 15:48 → EDBEDREQ 11-12 10:32 → EDBEDREQSVC 11-12 10:32 → ENRESERV 11-12 10:40 → C.MSN 11-12 11:34
PROVIDERS: ADMIT Family Medicine; ATTEND Internal Medicine
PROC: 0DB58ZX Excision of Esophagus, Via Natural or Artificial Opening Endoscopic, Diagnostic (ICD-10-PCS; 2016-11-09)
PROC: 0DB68ZX Excision of Stomach, Via Natural or Artificial Opening Endoscopic, Diagnostic (ICD-10-PCS; 2016-11-09)
PROC: 0W9F0ZZ Drainage of Abdominal Wall, Open Approach (ICD-10-PCS; principal; 2016-11-14)
DX: K91.870 Postprocedural hematoma of a digestive system organ or structure following a digestive system procedure (principal); T81.32XA Disruption of internal operation (surgical) wound, not elsewhere classified, initial encounter; I50.31 Acute diastolic (congestive) heart failure; K26.4 Chronic or unspecified duodenal ulcer with hemorrhage; D62 Acute posthemorrhagic anemia; R56.9 Unspecified convulsions; F17.200 Nicotine dependence, unspecified, uncomplicated; E87.6 Hypokalemia; J44.1 Chronic obstructive pulmonary disease with (acute) exacerbation; J90 Pleural effusion, not elsewhere classified; E87.1 Hypo-osmolality and hyponatremia; Z79.82 Long term (current) use of aspirin; I10 Essential (primary) hypertension; N40.1 Benign prostatic hyperplasia with lower urinary tract symptoms; Z82.49 Family history of ischemic heart disease and other diseases of the circulatory system; Z93.3 Colostomy status; K20.9 Esophagitis, unspecified; I95.1 Orthostatic hypotension; Y83.8 Other surgical procedures as the cause of abnormal reaction of the patient, or of later complication, without mention of misadventure at the time of the procedure; Y92.199 Unspecified place in other specified residential institution as the place of occurrence of the external cause; E88.09 Other disorders of plasma-protein metabolism, not elsewhere classified; R33.9 Retention of urine, unspecified

== ENCOUNTER → 2016-12-05 | Outpatient (CLI) | payer OTHER ==
[~2016-12-05] MED LIST changes: +ACET-1047 PO; +ADVIN25050 INH; -AMOX875T PO; -ASPI1TAB83 PO; -ATEN50TA8 PO; +CINA0.42 PO; +DOCU100C31 PO; +FRRS300 PO; +GFNSR600 PO; +GUAI400T29 PO; -HYDR-5688 PO; -INDA1TAB3 PO; +IPRASOL4 INH; +KFL500 PO; +LCTX PO; +LSX20 PO; +MCRK20 PO; +MGNO400 PO; +NUTR-977 PO; +PRT40 PO
[2016-12-06 08:34] LABS: BLOOD UREA NITROGEN 14 mg/dl (7-18); BUN/CREATININE RATIO 17.6 (10-20); CALCIUM 11.8 mg/dl (8.5-10.1); CARBON DIOXIDE 29 mmol/L (21-32); CHLORIDE 105 mmol/L (98-107); GLUCOSE 122 mg/dl (70-99); POTASSIUM 4.2 mmol/L (3.5-5.1); SODIUM 138 mmol/L (136-145)
[2016-12-06 09:26] LABS: HEMATOCRIT 29.4 % (42-52); MEAN CELL VOLUME 87.2 fL (80-100); MEAN CORPUSCULAR HEMOGLOBIN 27.3 pg (25-34); MEAN CORPUSCULAR HGB CONC 31.3 g/dl (32-36); MEAN PLATELET VOLUME 9.1 fL (7.4-10.4); PLATELET COUNT 522 K/uL (130-400); RED BLOOD COUNT 3.37 M/uL (4.7-6.1); WHITE BLOOD COUNT 7.42 K/uL (4.8-10.8)
== END | disposition home or self-care (01) ==
LOC: C.LABSPEC 08:20
PROVIDERS: ATTEND Nurse Practitioner
DX: N17.9 Acute kidney failure, unspecified (principal); D64.9 Anemia, unspecified; T81.89XA Other complications of procedures, not elsewhere classified, initial encounter; Y83.8 Other surgical procedures as the cause of abnormal reaction of the patient, or of later complication, without mention of misadventure at the time of the procedure

== ENCOUNTER 2017-01-06 15:10 | Inpatient (IN) | payer OTHER ==
[~2017-01-06] VITALS: Ht 182.9 cm; Wt 68.2 kg
[~2017-01-06 15:10] MED LIST changes: -CINA0.42 PO; -GUAI400T29 PO; -KFL500 PO; -LCTX PO
--- NOTE | 2017-01-06 15:59 | EMERGENCY ROOM VISIT NOTE ---
History Report prepared by Herminio: Iggy Ash Under the Supervision of: Dr. Johnny Alegria M.D. First contact with patient: 15:45 Chief Complaint: REFERRED BY DOCTOR Stated Complaint: INCREASE IN CALCIUM History of Present Illness The patient is a 81 year old male who presents to the Emergency Room with complaints of hypercalcemia that was recorded at a 13.9. The patient was diagnosed with hyperparathyroid disease in October of this year. He has a wound to his chest that is healing and a colostomy in place from a sigmoid colectomy procedure. His daughter brought in a blood sample to the ER this morning like usual and was notified of the patient's high calcium level. Currently, the patient feels very well. He denies any pain, shortness of breath, or abnormal urinary symptoms. Per family, they note that the patient has not been eating very much lately. Secondary to this, he has not been passing much stool into his ostomy. He is currently taking Cinacalcet. Source of History: patient Onset: Collected today Position: other (global) Symptom Intensity: 13.9 Quality: other (Hypercalcemia) Timing: constant Associated Symptoms: No SOB, No urinary symptoms Note: He denies any pain. He has not been eating very much. Review of Systems All systems have been listed, reviewed, and are negative other than those previously mentioned. Please see Additional Medical History Sheet. Past Medical & Surgical Medical Problems: (1) Acute blood loss anemia (2) COPD (chronic obstructive pulmonary disease) (3) Hyperparathyroidism (4) Hypertension (5) Pneumoperitoneum (6) Severe anemia Surgical Problems: (1) History of colectomy Family History Cancer Myocardial infarction Social History Smoking Status: Former Smoker Drug Use: none Marital Status: Housing Status: other Occupation Status: retired Current/Historical Medications Scheduled Cinacalcet (Sensipar), Unknown Dose PO UD Docusate Sodium (Docusate Sodium), 1 CAP PO BID Enteral Nutrition Formula (Ensure Plus Vanilla), 1 CAN PO DAILY Ferrous Sulfate (Ferrous Sulfate), 325 MG PO BIDM Finasteride (Proscar), 5 MG PO DAILY Fluticasone Prop/Salmeterol (Advair Diskus 250-50 Mcg/Dose), 1 PUFF INH BID Guaifenesin (Mucus Relief), 800 MG PO BID Ipratropium-Albuterol (Duoneb), 3 ML INH QIDR Multiple Vitamins W/ Minerals (Centrum Adults), 1 TAB PO DAILY Ocuvite Preservision (Ocuvite Preservision), 1 TAB PO DAILY Pantoprazole (Pantoprazole Sodium), 40 MG PO BID Tamsulosin Hcl (Flomax), 0.4 MG PO DAILY Scheduled PRN Acetaminophen (Mapap), 650 MG PO Q4H PRN for Pain or Fever Allergies Coded Allergies: No Known Allergies (Unverified , 11/05/16) Physical Exam Vital Signs Date Time Temp Pulse Resp B/P (MAP) Pulse Ox O2 Delivery O2 Flow Rate FiO2 01/06/17 16:33 67 16 180/86 96 Room Air 01/06/17 16:10 67 01/06/17 15:52 97 Room Air 01/06/17 15:27 37.0 71 17 122/61 95 Room Air Physical Exam GENERAL: Patient awake, alert, oriented x 3. Patient follows commands. Patient does not appear toxic. Patient is adequately hydrated and well- nourished. SKIN: No erythema, pallor, cyanosis or rash HEENT: Normal head, pupils equal, reactive to light and accommodation. Bilateral arcus senilis. Ears normal. Oral cavity and posterior pharynx appear normal. Neck: Without adenopathy, no neck vein distention. LUNGS: Clear to auscultation. No wheezes, no rales, no rhonchi. HEART: No murmurs. No gallops. No rubs ABDOMEN: Colostomy in place to the LLQ. Healing wound on the mid abdomen. No masses, no rebound, no hepatomegaly or splenomegaly. EXTREMITIES: No signs of trauma/infection. No pedal or pretibial edema. No calf or thigh tenderness. NEUROLOGIC: Cranial nerves II-XII within normal limits. No gross motor sensory function deficits. Medical Decision & Procedures Laboratory Results Test 01/06/17 16:15 01/06/17 17:25 Calcium Level 15.0 mg/dl (8.5-10.1) Laboratory results as stated above per my review. Medications Administered Medications (Trade) Dose Ordered Sig/Andrzej Route Start Time Stop Time Status Last Admin Dose Admin Sodium Chloride 1,000 ml @ 1,000 mls/hr Q1H ONCE IV 01/06/17 16:00 01/06/17 16:59 DC 01/06/17 16:30 1,000 MLS/HR ECG Indication: other (Hypercalcemia) Rate (beats per minute): 70 Rhythm: normal sinus Findings: no acute ischemic change, left axis deviation, no ectopy ED Course 1545: Past medical records reviewed. The patient was evaluated in room C6. A complete history and physical examination was performed. 1600: Ordered Sodium Chloride 1000 ml @ 1000 mls/hr IV 1723: Upon reevaluation, the patient is resting. I discussed today's findings with him. He verbalized agreement of the treatment plan. I spoke with Dr. Rodney of the [place] [facility] to evaluate the patient for further management. Medical Decision Differential diagnoses considered include hypercalcemia, hyperparathyroidism, other metabolic disorders, infection, and dehydration. Multiple labs from earlier today plus additional labs today, chest x-ray and EKG were evaluated. Please see above. The patient's calcium increased from earlier today. The patient will require treatment and was started on IV fluids here. I discussed care with the patient and multiple family members. I also discussed care with the hospitalist. The patient remains asymptomatic. Medication Reconcilliation Current Medication List: was personally reviewed by me Blood Pressure Screening Patient's blood pressure: Normal blood pressure Blood pressure disposition: Did not require urgent referral Consults Time Called: 1720 Consulting Physician: Dr. Rodney - [facility] [place] Returned Call: 1723 Discussed the patient's case with him. The patient will be evaluated for further management. Impression Primary Impression: Hypercalcemia Additional Impression: Hyperparathyroidism Scribe Attestation The scribe's documentation has been prepared under my direction and personally reviewed by me in its entirety. I confirm that the note above accurately reflects all work, treatment, procedures, and medical decision making performed by me. Departure Information Dispostion Being Evaluated By Hospitalist Referrals Mateus Boyd M.D. (PCP) Patient Instructions My [facility] Problem Qualifiers
[2017-01-06] MEDS ORDERED: SODIUM CHLORIDE 0.9% 1000ML 1,000 ML IV ONE (16:00)
[2017-01-06] MEDS ORDERED: NUTR-977 PO (17:05)
[2017-01-06] MEDS ORDERED: CINA0.42 PO (17:05)
[2017-01-06] MEDS ORDERED: GUAI400T29 PO (17:05)
[2017-01-06] MEDS ORDERED: ACETAMINOPHEN 325 MG TAB PO PRN (18:15)
[2017-01-06] MEDS ORDERED: ONDANSETRON INJ 2 MG/ML 2 ML VIAL IV PRN (18:15)
[2017-01-06 18:19] VITALS: O2SAT 97; BMI 20.3
--- NOTE | 2017-01-06 18:31 | History and Physical ---
History & Physical Date & Time of Service: Jan 06, 2017 at 18:17 Chief Complaint: Increase In Calcium Primary Care Physician: Mateus Boyd M.D. History of Present Illness Source: patient, family Pt is a 81 yo male who presents to the ER as a referral for complaints of hypercalcemia that was recorded at a 13.9 this AM. Pt was diagnosed with hyperparathyroid disease in October of this year and follows up with Dr Brizuela. His daughter (who works for a lab) brought in blood sample to the ER this morning like usual and was notified of the patient's high calcium level. Upon evaluation, pt denies any chest pain, shortness of breath, joint pain, palpitations, fevers or chills, N/V/D. Family does report that pt has had poor PO intake. He is currently taking Cinacalcet. Past Medical/Surgical History Medical Problems: (1) COPD (chronic obstructive pulmonary disease) Status: Chronic (2) Hyperparathyroidism Status: Chronic Surgical Problems: (1) History of colectomy Status: Resolved Family History Cancer Myocardial infarction Social History Smoking Status: Former Smoker Drug Use: none Marital Status: Housing status: other Occupational Status: retired Allergies Coded Allergies: No Known Allergies (Unverified , 11/05/16) Home Medications Scheduled Cinacalcet (Sensipar), Unknown Dose PO UD Docusate Sodium (Docusate Sodium), 1 CAP PO BID Enteral Nutrition Formula (Ensure Plus Vanilla), 1 CAN PO DAILY Ferrous Sulfate (Ferrous Sulfate), 325 MG PO BIDM Finasteride (Proscar), 5 MG PO DAILY Fluticasone Prop/Salmeterol (Advair Diskus 250-50 Mcg/Dose), 1 PUFF INH BID Guaifenesin (Mucus Relief), 800 MG PO BID Ipratropium-Albuterol (Duoneb), 3 ML INH QIDR Multiple Vitamins W/ Minerals (Centrum Adults), 1 TAB PO DAILY Ocuvite Preservision (Ocuvite Preservision), 1 TAB PO DAILY Pantoprazole (Pantoprazole Sodium), 40 MG PO BID Tamsulosin Hcl (Flomax), 0.4 MG PO DAILY Scheduled PRN Acetaminophen (Mapap), 650 MG PO Q4H PRN for Pain or Fever Review of Systems Constitutional: + weakness, + fatigue, No fever, No chills, No sweats, No weight loss Eyes: No worsening of vision, No eye pain, No redness, No discharge, No diplopia Respiratory: No cough, No sputum, No wheezing, No shortness of breath Cardiovascular: + edema, No chest pain, No orthopnea, No PND Abdomen: No pain, No nausea, No vomiting, No diarrhea Musculoskeletal: No joint pain, No muscle pain, No swelling, No calf pain Genitourinary - Male: No hematuria, No dysuria, No urinary frequency, No urinary urgency Neurologic: No memory loss, No paralysis, No weakness, No numbness/tingling, No vertigo Psychiatric: No depression symptoms, No anhedonism, No anxiety, No insomnia Endocrine: No fatigue, No excessive thirst Integumentary: No rash, No itch Allergic / Immunologic: No environmental allergies Physical Exam Vital Signs Date Time Temp Pulse Resp B/P (MAP) Pulse Ox O2 Delivery O2 Flow Rate FiO2 01/06/17 16:33 67 16 180/86 96 Room Air 01/06/17 16:10 67 01/06/17 15:52 97 Room Air 01/06/17 15:27 37.0 71 17 122/61 95 Room Air General Appearance: WD/WN, no apparent distress Head: normocephalic, atraumatic Eyes: normal inspection, PERRL, EOMI Neck: supple, no adenopathy, thyroid normal, no JVD Respiratory/Chest: chest non-tender, lungs clear, normal breath sounds, no respiratory distress Cardiovascular: no edema, no gallop, no JVD, no murmur Abdomen/GI: normal bowel sounds, non tender, soft, no organomegaly Back: normal inspection, no CVA tenderness, no muscle spasm, normal range of motion Extremities/Musculoskelatal: normal inspection, no calf tenderness, normal capillary refill, + pedal edema Neurologic/Psych: no motor/sensory deficits, alert, normal mood/affect, normal reflexes Diagnostics Laboratory Results Results Past 24 Hours Test 01/06/17 16:15 01/06/17 18:09 Range/Units Calcium Level 15.0 8.5-10.1 mg/dl Impression Assessment and Plan 81 y/o male with a history of HTN, BPH, perforated diverticulitis s/p sigmoid colectomy and colostomy presents to ER for abnormals labs Hypercalcemia likely related to hyperparathyroidism in addition to poor PO intake Will admit to observation at this time Start on IV NS at 75 cc/hr Obtain an intact PTH Give zometa 4 mg IV x 1 EKG unremarkable Consult PT/OT Hx of bilateral lower extremity edema Cont to monitor with IVF HTN cont home meds BPH Continue Proscar 5 mg PO qd and Flomax 0.4 mg PO qd Recent perforated diverticulitis s/p sigmoid colectomy and colostomy Pt with poor oral intake. 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 Y/N: Yes Risk Level: Moderate
--- NOTE | 2017-01-06 18:40 | DIAGNOSTIC IMAGING REPORT ---
CHEST ONE VIEW PORTABLE HISTORY: hypercalcemia COMPARISON: Chest 11/16/2016. Chest CT 11/17/2016. FINDINGS: Advanced emphysema. No pneumothorax. Stable calcified granuloma within the left upper lobe. The heart is normal in size. No new focal lung consolidations to suggest pneumonia. No evidence for pulmonary edema. No pleural effusions. IMPRESSION: Emphysema. Otherwise, no acute process within the chest. Electronically signed by: Jeremias Swartz M.D. 01/06/2017 6:38 PM Dictated Date/Time: 01/06/2017 6:37 PM
[2017-01-06 18:47] VITALS: BP 143/73; PULSE 69; TEMP 36.7; O2SAT 96
[2017-01-06 19:02] VITALS: BP 143/73; PULSE 69; TEMP 36.7
[2017-01-06 19:05] VITALS: Ht 182.9 cm; Wt 68.2 kg
[2017-01-06 19:16] LABS: BASO % 1.1 %; BASO ABS # 0.07 K/uL (0-0.2); COMPLETE YES; EOS % 3.7 %; HEMATOCRIT 32.1 % (42-52); IG% 0.3 %; LYMPH ABS # 0.79 K/uL (1.2-3.4); MEAN CELL VOLUME 87.2 fL (80-100); MEAN CORPUSCULAR HGB CONC 32.1 g/dl (32-36); MEAN PLATELET VOLUME 10.7 fL (7.4-10.4); MONO % 10.2 %; NEUT % 72.7 %; PLATELET COUNT 274 K/uL (130-400); RED BLOOD COUNT 3.68 M/uL (4.7-6.1); WHITE BLOOD COUNT 6.57 K/uL (4.8-10.8)
[2017-01-06 19:28] LABS: PROTHROMBIN TIME (PATIENT) 10.7 SECONDS (9.0-12.0)
[2017-01-06] MEDS: SODIUM CHLORIDE 0.9% 1000ML 1,000 ML IV SCH (19:32)
[2017-01-06] MEDS: ALBUT/IPRATROP 3MG/0.5MG NEB 3 ML VIAL INH SCH (19:58)
[2017-01-06] MEDS ORDERED: ZOLEDRONIC ACID INJ 4 MG in SODIUM CHLORIDE 0.9% 100ML 100 ML IV ONE (20:00)
[2017-01-06 20:02] VITALS: PULSE 63; O2SAT 94
[2017-01-06 20:25] LABS: BUN/CREATININE RATIO 23.2 (10-20); CALCIUM 14.6 mg/dl (8.5-10.1); CREATININE 1.4 mg/dl (0.60-1.40); POTASSIUM 3.4 mmol/L (3.5-5.1)
[2017-01-06] MEDS: DOCUSATE SODIUM 100 MG CAP PO SCH (20:38)
[2017-01-06] MEDS: PANTOprazole SOD 40 MG TAB PO SCH (20:38)
[2017-01-06] MEDS: HEPARIN SOD 5000 UNIT/0.5 ML CARP SQ SCH (22:00)
[2017-01-06 23:25] VITALS: BP 173/77; PULSE 69; TEMP 36.9; O2SAT 96
[2017-01-07] VITALS (9 sets, daily range): BP systolic 116–190; BP diastolic 51–94; PULSE 68–88; TEMP 36.5–37.7; O2SAT 93–98
[2017-01-07] MEDS ORDERED: HydrALAZINE HCL 20 MG/ML VIAL IV. STA (05:29)
[2017-01-07] MEDS: FLUTICASONE/SALMETEROL 250/50 (ADVAIR) 14 PUFF/1 INHALER INH SCH ×3 (06:14→21:36)
[2017-01-07] MEDS: HEPARIN SOD 5000 UNIT/0.5 ML CARP SQ SCH ×3 (06:19→21:38)
[2017-01-07] MEDS: ALBUT/IPRATROP 3MG/0.5MG NEB 3 ML VIAL INH SCH ×4 (06:47→18:55)
[2017-01-07 07:04] LABS: BASO ABS # 0.06 K/uL (0-0.2); COMPLETE YES; EOS % 4.6 %; HEMATOCRIT 32.1 % (42-52); IG% 0.2 %; LYMPH % 12.4 %; LYMPH ABS # 0.76 K/uL (1.2-3.4); MEAN CELL VOLUME 86.5 fL (80-100); MEAN CORPUSCULAR HEMOGLOBIN 27.8 pg (25-34); MEAN CORPUSCULAR HGB CONC 32.1 g/dl (32-36); MEAN PLATELET VOLUME 10.3 fL (7.4-10.4); MONO % 9.3 %; NEUT % 72.5 %; PLATELET COUNT 257 K/uL (130-400); RED BLOOD COUNT 3.71 M/uL (4.7-6.1); WHITE BLOOD COUNT 6.15 K/uL (4.8-10.8)
--- NOTE | 2017-01-07 07:41 | Progress Note ---
Subjective Date of Service: Jan 07, 2017. Subjective pt is pleasantly confused but in no distress, accompanied by family Problem List Medical Problems: (1) Anemia Status: Acute (2) Hypercalcemia Status: Acute (3) Hyperparathyroidism Status: Chronic (4) Postoperative bleeding from incision Status: Acute (5) Syncope Status: Acute Review of Systems Constitutional: + weakness, + fatigue, No fever, No chills Respiratory: No cough, No shortness of breath, No dyspnea on exertion Cardiac: No chest pain, No edema Abdomen: No pain, No nausea, No vomiting, No diarrhea Objective Vital Signs Date Time Temp Pulse Resp B/P (MAP) Pulse Ox O2 Delivery O2 Flow Rate FiO2 01/07/17 06:47 36.7 74 18 126/51 (76) 96 Room Air 01/07/17 06:47 72 16 96 Room Air 01/07/17 04:15 36.6 68 20 190/87 (121) 96 Room Air 01/07/17 04:00 Room Air 01/07/17 00:00 Room Air 01/06/17 23:25 36.9 69 22 173/77 (109) 96 Room Air 01/06/17 20:02 63 16 94 Room Air 01/06/17 20:00 Room Air 01/06/17 19:02 36.7 69 20 143/73 01/06/17 18:47 36.7 69 19 143/73 (96) 96 Nasal Cannula 2.0 01/06/17 18:22 69 18 175/91 97 Room Air 01/06/17 18:19 97 Room Air 01/06/17 16:33 67 16 180/86 96 Room Air 01/06/17 16:10 67 01/06/17 15:52 97 Room Air 01/06/17 15:27 37.0 71 17 122/61 95 Room Air Physical Exam General Appearance: no apparent distress, + thin Respiratory/Chest: chest non-tender, lungs clear, normal breath sounds Cardiovascular: regular rate, rhythm, no murmur Abdomen: normal bowel sounds, non tender, soft Extremities: no calf tenderness, + pedal edema Neurologic/Psychiatric: alert, oriented x 3 Skin: normal color, warm/dry, no rash Laboratory Results Last 24 Hours Test 01/06/17 16:15 01/06/17 19:18 01/07/17 06:48 White Blood Count 6.57 K/uL 6.15 K/uL Red Blood Count 3.68 M/uL 3.71 M/uL Hemoglobin 10.3 g/dL 10.3 g/dL Hematocrit 32.1 % 32.1 % Mean Corpuscular Volume 87.2 fL 86.5 fL Mean Corpuscular Hemoglobin 28.0 pg 27.8 pg Mean Corpuscular Hemoglobin Concent 32.1 g/dl 32.1 g/dl Platelet Count 274 K/uL 257 K/uL Mean Platelet Volume 10.7 fL 10.3 fL Neutrophils (%) (Auto) 72.7 % 72.5 % Lymphocytes (%) (Auto) 12.0 % 12.4 % Monocytes (%) (Auto) 10.2 % 9.3 % Eosinophils (%) (Auto) 3.7 % 4.6 % Basophils (%) (Auto) 1.1 % 1.0 % Neutrophils # (Auto) 4.78 K/uL 4.47 K/uL Lymphocytes # (Auto) 0.79 K/uL 0.76 K/uL Monocytes # (Auto) 0.67 K/uL 0.57 K/uL Eosinophils # (Auto) 0.24 K/uL 0.28 K/uL Basophils # (Auto) 0.07 K/uL 0.06 K/uL RDW Standard Deviation 51.9 fL 51.0 fL RDW Coefficient of Variation 16.0 % 16.0 % Immature Granulocyte % (Auto) 0.3 % 0.2 % Immature Granulocyte # (Auto) 0.02 K/uL 0.01 K/uL Prothrombin Time 10.7 SECONDS Prothromb Time International Ratio 1.0 Calcium Level 15.0 mg/dl 14.6 mg/dl Troponin I < 0.015 ng/ml Sodium Level 143 mmol/L Potassium Level 3.4 mmol/L Chloride Level 109 mmol/L Carbon Dioxide Level 27 mmol/L Anion Gap 7.0 mmol/L Blood Urea Nitrogen 33 mg/dl Creatinine 1.40 mg/dl Est Creatinine Clear Calc Drug Dose 36.4 ml/min Estimated GFR () 53.5 Estimated GFR (Non- 46.1 BUN/Creatinine Ratio 23.2 Random Glucose 87 mg/dl Total Bilirubin 0.3 mg/dl Aspartate Amino Transf (AST/SGOT) 11 U/L Alanine Aminotransferase (ALT/SGPT) 11 U/L Alkaline Phosphatase 82 U/L Total Protein 6.0 gm/dl Albumin 3.0 gm/dl Globulin 3.0 gm/dl Albumin/Globulin Ratio 1.0 Parathyroid Hormone (Intact) 563.9 pg/mL Assessment and Plan 81 y/o male with hypercalcemia and previous hyperparathyroidism, plus a history of HTN, BPH, perforated diverticulitis s/p sigmoid colectomy and colostomy Hypercalcemia likely related to hyperparathyroidism in addition to clinical dehydration Started on IV NS at 75 cc/hr, elevated intact PTH Given zometa 4 mg IV x 1 EKG unremarkable Hx of bilateral lower extremity edema, Last Echo preserved EF Cont to monitor with IVF cautious use with edema in past Copd stable on symbicort, offer duonebs BPH Proscar 5 mg PO qd and Flomax 0.4 mg PO qd Recent perforated diverticulitis s/p sigmoid colectomy and colostomy . Communications Engineering Technician consult to consider supplementation DVT prophylaxis with heparin Code Status Level I, FULL RESUSCITATION STATUS
[2017-01-07] MEDS: SODIUM CHLORIDE 0.9% 1000ML 1,000 ML IV SCH (07:49)
[2017-01-07] MEDS: FERROUS SULFATE 325 MG TAB PO SCH ×2 (07:49→17:04)
[2017-01-07 07:53] LABS: ALB/GLOB RATIO 0.9 (0.9-2); BUN/CREATININE RATIO 21.7 (10-20); CALCIUM 14.7 mg/dl (8.5-10.1); CREATININE 1.4 mg/dl (0.60-1.40); POTASSIUM 3.3 mmol/L (3.5-5.1)
[2017-01-07] MEDS: PANTOprazole SOD 40 MG TAB PO SCH ×2 (08:35→21:36)
[2017-01-07] MEDS: FINASTERIDE 5 MG TAB PO SCH (08:35)
[2017-01-07] MEDS: DOCUSATE SODIUM 100 MG CAP PO SCH ×2 (08:35→21:36)
[2017-01-07] MEDS: TAMSULOSIN HCL 0.4 MG CAP PO SCH (08:35)
[2017-01-07] MEDS: CEROVITE ADV FORMULA TAB PO SCH (08:35)
[2017-01-07] MEDS: BOOST PLUS VANILLA PO SCH ×2 (17:03)
[2017-01-08] VITALS (10 sets, daily range): BP systolic 121–158; BP diastolic 53–74; PULSE 70–80; TEMP 36.7–37.8; O2SAT 94–98
[2017-01-08] MEDS: HEPARIN SOD 5000 UNIT/0.5 ML CARP SQ SCH ×3 (05:57→21:19)
[2017-01-08] MEDS: ALBUT/IPRATROP 3MG/0.5MG NEB 3 ML VIAL INH SCH ×4 (06:55→19:36)
[2017-01-08] MEDS: SODIUM CHLORIDE 0.9% 1000ML 1,000 ML IV SCH (07:13)
[2017-01-08] MEDS: BOOST PLUS VANILLA PO SCH ×6 (07:13→16:15)
[2017-01-08] MEDS: FERROUS SULFATE 325 MG TAB PO SCH ×2 (07:13→16:34)
[2017-01-08 07:29] LABS: BASO ABS # 0.04 K/uL (0-0.2); EOS % 1.5 %; HEMATOCRIT 29.1 % (42-52); IG% 0.2 %; LYMPH % 7.9 %; LYMPH ABS # 0.32 K/uL (1.2-3.4); MEAN CELL VOLUME 87.1 fL (80-100); MEAN CORPUSCULAR HEMOGLOBIN 26.6 pg (25-34); MEAN CORPUSCULAR HGB CONC 30.6 g/dl (32-36); MONO % 10.4 %; PLATELET COUNT 230 K/uL (130-400); RED BLOOD COUNT 3.34 M/uL (4.7-6.1); WHITE BLOOD COUNT 4.03 K/uL (4.8-10.8)
[2017-01-08 07:53] LABS: COMPLETE YES
[2017-01-08 08:05] LABS: ALB/GLOB RATIO 0.9 (0.9-2); BUN/CREATININE RATIO 20.4 (10-20); CREATININE 1.3 mg/dl (0.60-1.40); POTASSIUM 3.1 mmol/L (3.5-5.1)
[2017-01-08] MEDS: DOCUSATE SODIUM 100 MG CAP PO SCH ×2 (08:41→21:14)
[2017-01-08] MEDS: FLUTICASONE/SALMETEROL 250/50 (ADVAIR) 14 PUFF/1 INHALER INH SCH ×2 (08:41→21:15)
[2017-01-08] MEDS: PANTOprazole SOD 40 MG TAB PO SCH ×2 (08:42→21:14)
[2017-01-08] MEDS ORDERED: POTASSIUM CHLORIDE 10 MEQ TABCR PO ONE (09:00)
[2017-01-08] MEDS: NSS + 20MEQ KCL 1000ML 1,000 ML IV SCH ×2 (09:15→21:16)
[2017-01-08] MEDS: FINASTERIDE 5 MG TAB PO SCH (09:16)
[2017-01-08] MEDS: TAMSULOSIN HCL 0.4 MG CAP PO SCH (09:16)
[2017-01-08] MEDS: CEROVITE ADV FORMULA TAB PO SCH (09:16)
[2017-01-08 11:07] LABS: URINE APPEARANCE CLOUDY (CLEAR); URINE BILIRUBIN NEG (NEG); URINE COLOR YELLOW; URINE NITRITE POS (NEG); URINE SPECIFIC GRAVITY 1.016 (1.000-1.030); UROBILINOGEN NEG (NEG)
[2017-01-08 11:11] LABS: MANUAL MICROSCOPIC REQUIRED? NO; REVIEW REQ? NO
--- NOTE | 2017-01-08 12:11 | Clinical Documentation Query ---
EMILIO Huynh : CLINICAL DOCUMENTATION QUERY Patient is an 81 year old male admitted for treatment of hypercalcemia in the setting of hyperparathyroidism. BMI noted to be 19.0 kg/m*m. Weight 63.7 Kg. On 11/05/16, documented weight was 80.2 Kg. This represents a weight loss of 16.5 Kg or > 20% of initial body weight over this interval. Recent (10/30) perforated sigmoid diverticulitis s/p colectomy and colostomy. Green Inspector has seen in consultation In your clinical opinion is this patient being managed for: ( ) Severe protein-calorie malnutrition ( ) Not Agree ( ) Other explanation of clinical findings (Please Explain) ( ) Unable to determine (Please Define) ( ) Need to Discuss The medical record reflects the following clinical findings, treatment, and risk factors. Clinical Indicators: Weight loss, poor wound healing Treatment: Oral supplementation, dietary consultation, MVI, iron supplementation Risk Factors: Age, recent surgery ASPEN Criteria: Malnutrition in Chronic Illness Moderate or Severe Malnutrition defined by 2 of the following 6 criteria: ENERGY INTAKE <75% of estimated energy requirement for > 1month WEIGHT LOSS 5%/1 month 7.5%/3 months 10%/6months 20%/1year >5%/1 month >7.5%/3 months >10%/6months >20%/1year Please clarify and document your clinical opinion in the progress notes and discharge summary. Terms such as "probable", "suspected", "likely", "questionable", "possible", or "still to be ruled out" are acceptable. IF IN AGREEMENT, YOU MUST DOCUMENT ABOVE DIAGNOSTIC STATEMENT IN DAILY PROGRESS NOTES AND DISCHARGE SUMMARY. This document is not part of the patient's record. Thank You, Eitan Raman, RN [phone]
[2017-01-08] MEDS ORDERED: CEFTRIAXONE SOD INJ 1 GM in DEXTROSE 5% ADD-VANTAGE 50ML 50 ML IV SCH (12:30)
--- NOTE | 2017-01-08 13:09 | Medical Student: [facility] ---
Med Student History & Physical Date & Time of Service: Jan 08, 2017 at 12:56 Chief Complaint: Hypercalcemia,Hyperparathyroidism Primary Care Physician: Mateus Boyd M.D. History of Present Illness Source: clinic records, hospital records Pt is 81 yo M who was admitted for hypercalcemia (13.9) secondary to primary hyperparathryoidism. His hyperparathyroidism was diagnosed earlier this year while hospitalized for perforated diverticulitis and a subsequent sigmoidectomy and colostomy. He has seen Dr. Egan outpatient for his Primary hyperparathyroidism. 30 mg of Sensipar was started in an attempt to delay a possible parathryoid surgery. Overnight, the patient was agitated and pulled out his IVs. He also had a low-grade fever overnight. He was placed with a 1:1 sitter and has been calm today. Past Medical/Surgical History Medical Problems: (1) Anemia Status: Acute (2) Hypercalcemia Status: Acute (3) Hyperparathyroidism Status: Chronic (4) Postoperative bleeding from incision Status: Acute (5) Syncope Status: Acute Surgical Problems: (1) History of colectomy Status: Resolved Social History Smoking Status: Former Smoker Drug Use: none Marital Status: Housing status: other Occupational Status: retired Allergies Coded Allergies: No Known Allergies (Unverified , 11/05/16) Medications Acetaminophen (Mapap), 650 MG PO Q4H PRN for Pain or Fever Cinacalcet (Sensipar), Unknown Dose PO UD Docusate Sodium (Docusate Sodium), 1 CAP PO BID Enteral Nutrition Formula (Ensure Plus Vanilla), 1 CAN PO DAILY Ferrous Sulfate (Ferrous Sulfate), 325 MG PO BIDM Finasteride (Proscar), 5 MG PO DAILY Fluticasone Prop/Salmeterol (Advair Diskus 250-50 Mcg/Dose), 1 PUFF INH BID Guaifenesin (Mucus Relief), 800 MG PO BID Ipratropium-Albuterol (Duoneb), 3 ML INH QIDR Multiple Vitamins W/ Minerals (Centrum Adults), 1 TAB PO DAILY Ocuvite Preservision (Ocuvite Preservision), 1 TAB PO DAILY Pantoprazole (Pantoprazole Sodium), 40 MG PO BID Tamsulosin Hcl (Flomax), 0.4 MG PO DAILY Review of Systems Constitutional: No chills, No weakness Respiratory: No cough, No shortness of breath Cardiovascular: No chest pain, No palpitations Abdomen: No pain, No nausea, No vomiting Musculoskeletal: No joint pain, No swelling Genitourinary - Male: No dysuria, No urinary frequency Neurologic: + memory loss, No weakness Physical Exam Vital Signs (24 Hours) Date Time Temp Pulse Resp B/P (MAP) Pulse Ox O2 Delivery O2 Flow Rate FiO2 01/08/17 11:28 70 16 95 Room Air 01/08/17 11:03 37.1 74 19 121/55 (77) 95 Room Air 01/08/17 08:00 Room Air 01/08/17 07:39 70 16 95 Room Air 01/08/17 07:36 36.7 80 20 134/53 (80) 94 Room Air 01/08/17 04:00 Room Air 01/08/17 03:34 37.8 77 18 158/74 (102) 96 Room Air 01/08/17 00:00 Room Air 01/07/17 23:36 37.7 85 18 149/94 (112) 97 Room Air 01/07/17 20:00 Room Air 01/07/17 19:13 37.1 88 22 150/56 (87) 97 Room Air 01/07/17 18:55 80 16 93 Room Air 01/07/17 16:00 Room Air 01/07/17 15:50 37.0 73 18 123/63 (83) 97 Room Air 01/07/17 15:36 72 16 96 Room Air General Appearance: no apparent distress (sleeping comfortably. ), + thin Head: normocephalic, atraumatic Eyes: normal inspection ENT: hearing grossly normal Neck: supple, no adenopathy, no JVD Respiratory/Chest: lungs clear, normal breath sounds, no respiratory distress Cardiovascular: regular rate, rhythm, no edema, no murmur Abdomen/GI: non tender, soft, no organomegaly Extremities/Musculoskelatal: normal range of motion, + swelling (Right knee effusion ) Neurologic/Psych: alert, + disoriented (oriented to person and year only. ) Skin: normal color, warm/dry, no rash Diagnostics Laboratory Results Results Past 24 Hours Test 01/08/17 07:11 01/08/17 10:34 Range/Units White Blood Count 4.03 4.8-10.8 K/uL Red Blood Count 3.34 4.7-6.1 M/uL Hemoglobin 8.9 14.0-18.0 g/dL Hematocrit 29.1 42-52 % Mean Corpuscular Volume 87.1 80-100 fL Mean Corpuscular Hemoglobin 26.6 25-34 pg Mean Corpuscular Hemoglobin Concent 30.6 32-36 g/dl Platelet Count 230 130-400 K/uL Mean Platelet Volume 10.0 7.4-10.4 fL Neutrophils (%) (Auto) 79.0 % Lymphocytes (%) (Auto) 7.9 % Monocytes (%) (Auto) 10.4 % Eosinophils (%) (Auto) 1.5 % Basophils (%) (Auto) 1.0 % Neutrophils # (Auto) 3.18 1.4-6.5 K/uL Lymphocytes # (Auto) 0.32 1.2-3.4 K/uL Monocytes # (Auto) 0.42 0.11-0.59 K/uL Eosinophils # (Auto) 0.06 0-0.5 K/uL Basophils # (Auto) 0.04 0-0.2 K/uL RDW Standard Deviation 52.4 36.4-46.3 fL RDW Coefficient of Variation 16.3 11.5-14.5 % Immature Granulocyte % (Auto) 0.2 % Immature Granulocyte # (Auto) 0.01 0.00-0.02 K/uL Red Blood Cell Morphology Unremarkable Sodium Level 144 136-145 mmol/L Potassium Level 3.1 3.5-5.1 mmol/L Chloride Level 112 98-107 mmol/L Carbon Dioxide Level 23 21-32 mmol/L Anion Gap 9.0 3-11 mmol/L Blood Urea Nitrogen 27 7-18 mg/dl Creatinine 1.30 0.60-1.40 mg/dl Est Creatinine Clear Calc Drug Dose 38.8 ml/min Estimated GFR () 58.5 Estimated GFR (Non- 50.5 BUN/Creatinine Ratio 20.4 10-20 Random Glucose 84 70-99 mg/dl Calcium Level 12.0 8.5-10.1 mg/dl Magnesium Level 2.1 1.8-2.4 mg/dl Total Bilirubin 0.2 0.2-1 mg/dl Aspartate Amino Transf (AST/SGOT) 15 15-37 U/L Alanine Aminotransferase (ALT/SGPT) 11 12-78 U/L Alkaline Phosphatase 71 45-117 U/L Total Protein 5.4 6.4-8.2 gm/dl Albumin 2.6 3.4-5.0 gm/dl Globulin 2.7 2.5-4.0 gm/dl Albumin/Globulin Ratio 0.9 0.9-2 Urine Color YELLOW Urine Appearance CLOUDY CLEAR Urine pH 7.0 4.5-7.5 Urine Specific [place] 1.016 1.000-1.030 Urine Protein TRACE NEG Urine Glucose (UA) NEG NEG Urine Ketones NEG NEG Urine Occult Blood NEG NEG Urine Nitrite POS NEG Urine Bilirubin NEG NEG Urine Urobilinogen NEG NEG Urine Leukocyte Esterase LARGE NEG Urine WBC (Auto) >30 0-5 /hpf Urine RBC (Auto) 0-4 0-4 /hpf Urine Hyaline Casts (Auto) 1-5 0-5 /lpf Urine Epithelial Cells (Auto) 5-10 0-5 /lpf Urine Bacteria (Auto) 1+ NEG Microbiology Results 01/08/17 Urine Culture, Received Pending Impression Assessment and Plan Pt is 81 year old male with hx of primary hyperparathyroidism, COPD, BPH and perforated diverticulosis who presented with hypercalcemia. Plan: Neuro * Altered Mental Status * Disoriented to time and place. Has been baseline following last surgery. * Agitated - pulling out IVs. Could be secondary to hypercalcemia or possible UTI. * Continue with 1:1 sitter. Cardiovascular * No concerns at this time. Pulmonology * COPD * Continue home dose of Advair BID and duonebs PRN. GI * Normal diet as tolerated. * Boost supplements as well for hypoalbuminemia. * Monitor consistency of colostomy output. * Continue home Protonix 40 mg BID. * Continue Iron replacement and Colace supplements for constipation that results. Renal * Decreased renal function * Cr bumped slightly from baseline of 0.8 to 1.3. * BUN is 27. * Continue to monitor. * Likely UTI * UA was (+) for bacteria, WBCs, and nitrites. * Begin Rocefin. * * Continue IVF (1,000 mL at 75 mls/hr) to diurese excess calcium. * Hypokalemia * add 20 meq K+ to IVF. * Hypoalbuminemia * Continue to monitor. Endocrine * Primary Hyperparathyroidism and hypercalcemia. * Sensipar 30 mg no on formulary. family may supply. * Continue NaCl IVF to diurese Calcium. * Start Zometa 4 mg IV. * Discuss referral to endocrine surgery. Infectious Disease * UTI - as above. Hematology * Anemia * likely acute blood loss and dilutional in nature. * Fe supplementation, 3225 mg BID. * Obtain Ferratin and transferrin saturation, as well as B12 and folate levels. Level of Care Med/Surg Advanced Directives Existing Living Will: Yes Existing Power of Hoop Punch And Coiler Operator Helper: Yes (LAURA) Resuscitation Status FULL RESUSCITATION DVT Prophylaxis unfractionated heparin SQ
[2017-01-08] MEDS: LACTOBACILLUS ACIDOPHILUS (FLORANEX) TAB PO SCH (16:34)
[2017-01-08] MEDS ORDERED: NURSING VERBAL MED ORDER ONE (17:00)
[2017-01-09] VITALS (9 sets, daily range): BP systolic 141–166; BP diastolic 72–76; PULSE 62–76; TEMP 36.4–37.1; O2SAT 94–98
[2017-01-09] MEDS: HEPARIN SOD 5000 UNIT/0.5 ML CARP SQ SCH ×3 (06:24→22:32)
--- NOTE | 2017-01-09 06:24 | Progress Note ---
Subjective Date of Service: Jan 08, 2017. Subjective Pt evaluation today including: conversation w/ patient, physical exam, chart review, lab review, review of inpatient medication list Pain: none voiced PO Intake: decent per staff tele stable overnight during the visit he was pleasant and offered no complaints of cp, sob, abd pain he was surprisingly alert/oriented x 3 for us; staff reporting waxing & waning delirium family confirmed with staff he is typically not fully oriented on most days at home was encephalopathic overnight Problem List Medical Problems: (1) Anemia Status: Acute (2) Hypercalcemia Status: Acute (3) Hyperparathyroidism Status: Chronic (4) Postoperative bleeding from incision Status: Acute (5) Syncope Status: Acute Review of Systems Constitutional: No fever, No chills Respiratory: No shortness of breath Cardiac: No chest pain Abdomen: No pain Objective Vital Signs Date Time Temp Pulse Resp B/P (MAP) Pulse Ox O2 Delivery O2 Flow Rate FiO2 01/08/17 19:38 74 16 96 Room Air 01/08/17 18:55 37.2 72 18 136/60 (85) 97 Room Air 01/08/17 16:00 Room Air 01/08/17 15:27 77 16 98 Room Air 01/08/17 15:14 37.4 72 18 147/67 (93) 97 Room Air 01/08/17 12:00 Room Air 01/08/17 11:28 70 16 95 Room Air 01/08/17 11:03 37.1 74 19 121/55 (77) 95 Room Air 01/08/17 08:00 Room Air 01/08/17 07:39 70 16 95 Room Air 01/08/17 07:36 36.7 80 20 134/53 (80) 94 Room Air 01/08/17 04:00 Room Air 01/08/17 03:34 37.8 77 18 158/74 (102) 96 Room Air 01/08/17 00:00 Room Air 01/07/17 23:36 37.7 85 18 149/94 (112) 97 Room Air 01/07/17 20:00 Room Air Physical Exam General Appearance: no apparent distress ENT: pharynx normal Neck: no JVD Respiratory/Chest: lungs clear, no respiratory distress, no accessory muscle use Cardiovascular: regular rate, rhythm, no gallop Abdomen: normal bowel sounds, non tender, soft, no organomegaly, + pertinent finding (colostomy in place with brown stool in bag) Extremities: no pedal edema Neurologic/Psychiatric: alert, oriented x 3 Skin: + pertinent finding (stasis changes on legs) Laboratory Results Last 24 Hours Test 01/08/17 07:11 01/08/17 10:34 White Blood Count 4.03 K/uL Red Blood Count 3.34 M/uL Hemoglobin 8.9 g/dL Hematocrit 29.1 % Mean Corpuscular Volume 87.1 fL Mean Corpuscular Hemoglobin 26.6 pg Mean Corpuscular Hemoglobin Concent 30.6 g/dl Platelet Count 230 K/uL Mean Platelet Volume 10.0 fL Neutrophils (%) (Auto) 79.0 % Lymphocytes (%) (Auto) 7.9 % Monocytes (%) (Auto) 10.4 % Eosinophils (%) (Auto) 1.5 % Basophils (%) (Auto) 1.0 % Neutrophils # (Auto) 3.18 K/uL Lymphocytes # (Auto) 0.32 K/uL Monocytes # (Auto) 0.42 K/uL Eosinophils # (Auto) 0.06 K/uL Basophils # (Auto) 0.04 K/uL RDW Standard Deviation 52.4 fL RDW Coefficient of Variation 16.3 % Immature Granulocyte % (Auto) 0.2 % Immature Granulocyte # (Auto) 0.01 K/uL Red Blood Cell Morphology Unremarkable Sodium Level 144 mmol/L Potassium Level 3.1 mmol/L Chloride Level 112 mmol/L Carbon Dioxide Level 23 mmol/L Anion Gap 9.0 mmol/L Blood Urea Nitrogen 27 mg/dl Creatinine 1.30 mg/dl Est Creatinine Clear Calc Drug Dose 38.8 ml/min Estimated GFR () 58.5 Estimated GFR (Non- 50.5 BUN/Creatinine Ratio 20.4 Random Glucose 84 mg/dl Calcium Level 12.0 mg/dl Magnesium Level 2.1 mg/dl Total Bilirubin 0.2 mg/dl Aspartate Amino Transf (AST/SGOT) 15 U/L Alanine Aminotransferase (ALT/SGPT) 11 U/L Alkaline Phosphatase 71 U/L Total Protein 5.4 gm/dl Albumin 2.6 gm/dl Globulin 2.7 gm/dl Albumin/Globulin Ratio 0.9 Urine Color YELLOW Urine Appearance CLOUDY Urine pH 7.0 Urine Specific [place] 1.016 Urine Protein TRACE Urine Glucose (UA) NEG Urine Ketones NEG Urine Occult Blood NEG Urine Nitrite POS Urine Bilirubin NEG Urine Urobilinogen NEG Urine Leukocyte Esterase LARGE Urine WBC (Auto) >30 /hpf Urine RBC (Auto) 0-4 /hpf Urine Hyaline Casts (Auto) 1-5 /lpf Urine Epithelial Cells (Auto) 5-10 /lpf Urine Bacteria (Auto) 1+ Assessment and Plan 81yo male - 1. hypercalcemia 2nd to primary hyperparathyroidism - improving. cont judicious IVF s/p IV bisphosphonate earlier this admission corrected total calcium is closer to 13 accounting for hypoalbuminemia sees Dr. Gutierres from endo cause of acute rise? dehydration? 2. concern for UTI - start rocephin 1gm daily. Follow cx 3. anemia - check iron studies, b12, folate; cbc in am 4. 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 h/o chronic diastolic CHF - compensated. 6. BPH - cont finasteride and flomax; stable; if has UTI will need JOSE JUAN to r/o prostatitis 7. DVT proph - heparin TID 8. hypokalemia - replace IV and PO BMP am 9. COPD -stable, cont home inhalers 10. CKD stage 3 - creatinine stable BMP am PT, OT evals to help w/ dispo planning Continued [facility] stay due to: multiple IV medications needed Discharge planning: uncertain
[2017-01-09] MEDS: BOOST PLUS VANILLA PO SCH ×6 (07:00→16:15)
[2017-01-09] MEDS: ALBUT/IPRATROP 3MG/0.5MG NEB 3 ML VIAL INH SCH ×4 (07:25→20:00)
[2017-01-09 08:12] LABS: BASO % 1.1 %; BASO ABS # 0.05 K/uL (0-0.2); COMPLETE YES; EOS % 5.9 %; HEMATOCRIT 30.9 % (42-52); LYMPH % 13.4 %; LYMPH ABS # 0.59 K/uL (1.2-3.4); MEAN CELL VOLUME 87.5 fL (80-100); MEAN CORPUSCULAR HEMOGLOBIN 26.9 pg (25-34); MEAN CORPUSCULAR HGB CONC 30.7 g/dl (32-36); MEAN PLATELET VOLUME 10.6 fL (7.4-10.4); MONO % 12.1 %; NEUT % 67.5 %; PLATELET COUNT 225 K/uL (130-400); RED BLOOD COUNT 3.53 M/uL (4.7-6.1); WHITE BLOOD COUNT 4.39 K/uL (4.8-10.8)
[2017-01-09] MEDS: CEROVITE ADV FORMULA TAB PO SCH (08:27)
[2017-01-09] MEDS: FERROUS SULFATE 325 MG TAB PO SCH ×2 (08:27→17:30)
[2017-01-09] MEDS: PANTOprazole SOD 40 MG TAB PO SCH ×2 (08:27→19:36)
[2017-01-09] MEDS: DOCUSATE SODIUM 100 MG CAP PO SCH ×2 (08:27→19:35)
[2017-01-09] MEDS: FINASTERIDE 5 MG TAB PO SCH (08:28)
[2017-01-09] MEDS: FLUTICASONE/SALMETEROL 250/50 (ADVAIR) 14 PUFF/1 INHALER INH SCH ×2 (08:28→19:35)
[2017-01-09] MEDS: TAMSULOSIN HCL 0.4 MG CAP PO SCH (08:28)
[2017-01-09] MEDS: LACTOBACILLUS ACIDOPHILUS (FLORANEX) TAB PO SCH ×3 (08:29→17:31)
[2017-01-09 09:00] LABS: CREATININE 1.2 mg/dl (0.60-1.40)
[2017-01-09 09:01] LABS: BUN/CREATININE RATIO 19.7 (10-20)
[2017-01-09] MEDS ORDERED: NON-FORMULARY MEDICATION SCH (11:00)
[2017-01-09] MEDS: CEPHALEXIN MONOHYDRATE 500 MG CAP PO SCH ×2 (14:29→19:38)
[2017-01-09] MEDS: NSS + 20MEQ KCL 1000ML 1,000 ML IV SCH (14:29)
--- NOTE | 2017-01-09 15:52 | Medical Student: [facility] ---
Med Student Progress Note Date of Service Jan 09, 2017. Subjective Pt evaluation today including: conversation w/ patient, physical exam, chart review, lab review, review of inpatient medication list Pain: None PO Intake: Regular Diet Voiding: no voiding problems Pt is a 81 yo male who was admitted for hypercalcemia secondary to primary hyperparathyroidism. Pt's mentation has improved significantly in the past 24 hours. He is now oriented to person, place and the month and the year. He remains unaware of the reason for his admission. He continues to deny any physical symptoms, stating he is comfortable and slept well last night. Review of Systems Constitutional: No fever, No chills, No sweats Respiratory: No cough, No wheezing, No shortness of breath Cardiac: No chest pain, No orthopnea, No palpitations Abdomen: No pain, No nausea, No vomiting, No diarrhea Musculoskeletal: No joint pain, No swelling Male : No dysuria, No urinary frequency Skin: No rash, No itch Objective Vital Signs Date Time Temp Pulse Resp B/P (MAP) Pulse Ox O2 Delivery O2 Flow Rate FiO2 01/09/17 12:00 Room Air 01/09/17 11:32 64 16 97 Room Air 01/09/17 11:25 36.4 67 16 142/72 (95) 94 Room Air 01/09/17 08:00 36.9 76 18 141/72 (95) 98 01/09/17 08:00 Room Air 01/09/17 07:25 62 16 95 Room Air 01/09/17 04:13 37.1 72 18 148/73 (98) 98 Room Air 01/09/17 04:00 Room Air 01/09/17 00:00 Room Air 01/08/17 23:34 37.4 76 16 134/64 (87) 96 Room Air 01/08/17 20:00 Room Air 01/08/17 19:38 74 16 96 Room Air 01/08/17 18:55 37.2 72 18 136/60 (85) 97 Room Air 01/08/17 16:00 Room Air Physical Exam General Appearance: WD/WN, no apparent distress ENT: hearing grossly normal Neck: supple, no adenopathy, no JVD Respiratory/Chest: lungs clear, normal breath sounds, no respiratory distress Cardiovascular: regular rate, rhythm, no edema, no murmur Abdomen: non tender, soft, no organomegaly, + pertinent finding (colostomy RLQ) Extremities: normal inspection, no pedal edema Neurologic/Psychiatric: alert, normal mood/affect, oriented x 3 Skin: normal color, warm/dry, no rash Laboratory Results Last 24 Hours Test 01/09/17 07:48 White Blood Count 4.39 K/uL Red Blood Count 3.53 M/uL Hemoglobin 9.5 g/dL Hematocrit 30.9 % Mean Corpuscular Volume 87.5 fL Mean Corpuscular Hemoglobin 26.9 pg Mean Corpuscular Hemoglobin Concent 30.7 g/dl Platelet Count 225 K/uL Mean Platelet Volume 10.6 fL Neutrophils (%) (Auto) 67.5 % Lymphocytes (%) (Auto) 13.4 % Monocytes (%) (Auto) 12.1 % Eosinophils (%) (Auto) 5.9 % Basophils (%) (Auto) 1.1 % Neutrophils # (Auto) 2.96 K/uL Lymphocytes # (Auto) 0.59 K/uL Monocytes # (Auto) 0.53 K/uL Eosinophils # (Auto) 0.26 K/uL Basophils # (Auto) 0.05 K/uL RDW Standard Deviation 52.4 fL RDW Coefficient of Variation 16.3 % Immature Granulocyte % (Auto) 0.0 % Immature Granulocyte # (Auto) 0.00 K/uL Sodium Level 142 mmol/L Potassium Level 4.0 mmol/L Chloride Level 113 mmol/L Carbon Dioxide Level 20 mmol/L Anion Gap 9.0 mmol/L Blood Urea Nitrogen 24 mg/dl Creatinine 1.20 mg/dl Est Creatinine Clear Calc Drug Dose 45.0 ml/min Estimated GFR () 64.4 Estimated GFR (Non- 55.6 BUN/Creatinine Ratio 19.7 Random Glucose 87 mg/dl Calcium Level 11.0 mg/dl Albumin 2.6 gm/dl Assessment and Plan Assessment and Plan: Pt is 81 year old male with hx of primary hyperparathyroidism, COPD, BPH and perforated diverticulosis who presented with hypercalcemia. Plan: Neuro * Altered Mental Status - resolved. * Now oriented to person time and place. * Likely secondary to hypercalcemia or possible UTI. Cardiovascular * history of CHF. Stable currently. Pulmonology * COPD * Continue home dose of Advair BID and duonebs PRN. GI * Normal diet as tolerated. * Boost supplements as well for hypoalbuminemia. * Monitor consistency of colostomy output. * Continue home Protonix 40 mg BID. * Continue Iron replacement and Colace supplements for constipation that results. Renal * Decreased renal function * Cr bumped slightly from baseline of 0.8 to 1.3. * BUN is 27. * Continue to monitor. * Continue IVF (1,000 mL at 75 mls/hr) to diurese excess calcium. * Hypokalemia - resolved. * 20 meq K+ to IVF. * Hypoalbuminemia * Continue to monitor. Endocrine * Primary Hyperparathyroidism and hypercalcemia. * D/w Dr. Mariano. Will up Sensipar dose to 60 mg. Family to bring in Rx from home as not on formulary here. * Continue NaCl IVF to diurese Calcium. * Start Zometa 4 mg IV. * Discuss referral to endocrine surgery. Infectious Disease * ? Prostatitis * Culture negative urine sample * Nitrites and WBCs present. * Boggy Prostate on JOSE JUAN. * Switch to keflex 500 mg bid. * low grade fevers have resolved. Hematology * Anemia * likely acute blood loss and dilutional in nature. * Fe supplementation, 325 mg BID. * Obtain Ferritin and transferrin saturation, as well as B12 and folate levels. PT/OT - referral to assist with discharge planning. Continued [facility] stay due to: multiple IV medications needed Discharge planning: uncertain
[2017-01-09] MEDS: CINACALCET 30 MG TAB PO SCH (19:40)
[2017-01-10] VITALS (8 sets, daily range): BP systolic 120–175; BP diastolic 79–84; PULSE 77–82; TEMP 36.7; O2SAT 94–98
--- NOTE | 2017-01-10 05:03 | Progress Note ---
Subjective Date of Service: late enty for visit on Jan 09, 2017. Subjective Pt evaluation today including: conversation w/ patient, conversation w/ family (grandson by phone), physical exam, chart review, lab review, conversation w/ foreign law consultant (Dr. Brizuela, endocrinology), review of inpatient medication list Pain: denies PO Intake: normal tele stable overnight offers no new complaints feels good cleared by PT for home Problem List Medical Problems: (1) Anemia Status: Acute (2) Hypercalcemia Status: Acute (3) Hyperparathyroidism Status: Chronic (4) Postoperative bleeding from incision Status: Acute (5) Syncope Status: Acute Review of Systems Constitutional: No fever Respiratory: No shortness of breath, No dyspnea on exertion Cardiac: No chest pain Abdomen: No pain Objective Vital Signs Date Time Temp Pulse Resp B/P (MAP) Pulse Ox O2 Delivery O2 Flow Rate FiO2 01/10/17 00:42 36.7 82 18 120/84 (96) 94 Room Air 01/10/17 00:30 97 Room Air 01/09/17 21:41 70 16 97 Room Air 01/09/17 20:00 Room Air 01/09/17 17:42 36.7 70 16 97 2.0 01/09/17 16:00 Room Air 01/09/17 15:47 70 16 97 Room Air 01/09/17 14:53 36.7 74 18 166/76 (106) 98 Room Air 01/09/17 12:00 Room Air 01/09/17 11:32 64 16 97 Room Air 01/09/17 11:25 36.4 67 16 142/72 (95) 94 Room Air 01/09/17 08:00 36.9 76 18 141/72 (95) 98 01/09/17 08:00 Room Air 01/09/17 07:25 62 16 95 Room Air Physical Exam General Appearance: no apparent distress ENT: pharynx normal Neck: no JVD Respiratory/Chest: lungs clear, no respiratory distress, no accessory muscle use Cardiovascular: regular rate, rhythm, no gallop, no murmur Abdomen: normal bowel sounds, non tender, soft, no organomegaly, + pertinent finding (colostomy in place with brown stool ) Extremities: no pedal edema Neurologic/Psychiatric: alert, oriented x 3 Comments: rectal exam - prostate enlarged, mildly boggy but not overtly tender; small nodule, left upper pole; there was firm, hard stool in the rectal vault Laboratory Results Last 24 Hours Test 01/09/17 07:48 01/10/17 04:44 White Blood Count 4.39 K/uL Red Blood Count 3.53 M/uL Hemoglobin 9.5 g/dL Hematocrit 30.9 % Mean Corpuscular Volume 87.5 fL Mean Corpuscular Hemoglobin 26.9 pg Mean Corpuscular Hemoglobin Concent 30.7 g/dl Platelet Count 225 K/uL Mean Platelet Volume 10.6 fL Neutrophils (%) (Auto) 67.5 % Lymphocytes (%) (Auto) 13.4 % Monocytes (%) (Auto) 12.1 % Eosinophils (%) (Auto) 5.9 % Basophils (%) (Auto) 1.1 % Neutrophils # (Auto) 2.96 K/uL Lymphocytes # (Auto) 0.59 K/uL Monocytes # (Auto) 0.53 K/uL Eosinophils # (Auto) 0.26 K/uL Basophils # (Auto) 0.05 K/uL RDW Standard Deviation 52.4 fL RDW Coefficient of Variation 16.3 % Immature Granulocyte % (Auto) 0.0 % Immature Granulocyte # (Auto) 0.00 K/uL Sodium Level 142 mmol/L Potassium Level 4.0 mmol/L Chloride Level 113 mmol/L Carbon Dioxide Level 20 mmol/L Anion Gap 9.0 mmol/L Blood Urea Nitrogen 24 mg/dl Creatinine 1.20 mg/dl Est Creatinine Clear Calc Drug Dose 45.0 ml/min Estimated GFR () 64.4 Estimated GFR (Non- 55.6 BUN/Creatinine Ratio 19.7 Random Glucose 87 mg/dl Calcium Level 11.0 mg/dl Albumin 2.6 gm/dl Transferrin % Saturation % Assessment and Plan 81yo male - 1. hypercalcemia 2nd to primary hyperparathyroidism - improving. s/p IV bisphosphonate earlier this admission corrected total calcium is closer to 11.5 but total today is 11. spoke with Dr. Gutierres from endo he has recommended increasing the sensipar to 60mg BID after d/c will need repeat calcium level in about 5 days with f/u with him in the office in about 1 week 2. suspected UTI + possible prostatitis - although urine cx was negative a specific pathogen is often not isolated from urine cx with prostatitis. will stop rocephin, change to keflex and treat for 10-14 days 3. anemia - check iron studies, b12, folate 4. 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 h/o chronic diastolic CHF - compensated. stop fluids to avoid fluid overload state 6. BPH - cont finasteride and flomax has nodule on exam - will mention to patient/family before discharge unsure if pursuing work-up is necessary 7. DVT proph - heparin TID 8. hypokalemia - resolved 9. COPD -stable, cont home inhalers 10. CKD stage 3 - creatinine stable BMP am PT, OT both feel he can return home d/c tele move to med/surg grandson updated anticipate d/c home tomorrow Continued [facility] stay due to: multiple IV medications needed Discharge planning: home
[2017-01-10] MEDS: HEPARIN SOD 5000 UNIT/0.5 ML CARP SQ SCH ×2 (06:04→14:46)
[2017-01-10 06:21] LABS: CREATININE 1.1 mg/dl (0.60-1.40)
[2017-01-10 06:22] LABS: BUN/CREATININE RATIO 17.7 (10-20); CALCIUM 10.2 mg/dl (8.5-10.1); POTASSIUM 3.8 mmol/L (3.5-5.1)
[2017-01-10 06:26] LABS: FERRITIN 202.7 ng/ml (8.0-388.0)
[2017-01-10] MEDS: ALBUT/IPRATROP 3MG/0.5MG NEB 3 ML VIAL INH SCH ×3 (07:14→14:24)
[2017-01-10] MEDS: FLUTICASONE/SALMETEROL 250/50 (ADVAIR) 14 PUFF/1 INHALER INH SCH (08:14)
[2017-01-10] MEDS: FERROUS SULFATE 325 MG TAB PO SCH ×2 (08:15→16:33)
[2017-01-10] MEDS: CEPHALEXIN MONOHYDRATE 500 MG CAP PO SCH (08:15)
[2017-01-10] MEDS: DOCUSATE SODIUM 100 MG CAP PO SCH (08:15)
[2017-01-10] MEDS: TAMSULOSIN HCL 0.4 MG CAP PO SCH (08:15)
[2017-01-10] MEDS: PANTOprazole SOD 40 MG TAB PO SCH (08:16)
[2017-01-10] MEDS: LACTOBACILLUS ACIDOPHILUS (FLORANEX) TAB PO SCH ×3 (08:16→16:34)
[2017-01-10] MEDS: CEROVITE ADV FORMULA TAB PO SCH (08:16)
[2017-01-10] MEDS: CINACALCET 30 MG TAB PO SCH (08:16)
[2017-01-10] MEDS: FINASTERIDE 5 MG TAB PO SCH (08:17)
[2017-01-10] MEDS: BOOST PLUS VANILLA PO SCH ×6 (08:17→16:34)
--- NOTE | 2017-01-10 14:14 | Medical Student: [facility] ---
Discharge Summary Admission Date: Jan 06, 2017 at 18:05 Discharge Date: Jan 10, 2017 Discharge Disposition: Home Principal Diagnosis: Hypercalcemia Problems/Secondary Diagnoses: Primary Hyperparathyroidism, COPD, CHF, normocytic anemia c/w anemia of chronic disease Discharge Exam Review of Systems: Constitutional: No fever, No chills, No sweats, No weakness Respiratory: No cough, No wheezing, No shortness of breath Cardiovascular: No chest pain, No palpitations Abdomen: No pain, No nausea, No vomiting, No diarrhea, No constipation Musculoskeletal: No joint pain, No swelling Genitourinary - Male: No dysuria, No urinary frequency Neurologic: No weakness Endocrine: No excessive thirst Integumentary: No rash, No itch Physical Exam: General Appearance: WD/WN, no apparent distress (sitting eating breakfast) Eyes: PERRL, EOMI Neck: supple, no adenopathy, no JVD Respiratory/Chest: lungs clear, normal breath sounds, no respiratory distress Cardiovascular: regular rate, rhythm, no gallop, no murmur, normal peripheral pulses Abdomen / GI: non tender, soft, no organomegaly, + pertinent finding ( colostomy with formed brown stool present. ) Extremities: normal capillary refill Neurologic/Psychiatric: alert, normal mood/affect, oriented x 3 Skin: normal color, warm/dry, no rash Hospital Course Mr. Kumari was admitted four days ago for a high Calcium level (13.9). While he was inpatient he was continued on home medications and given IV fluids to flush the excess calcium from his system. He was also given a dose of Zometa, that will help his bones absorb calcium in the next few weeks. While he was inpatient he developed a mild fever which was likely due to prostatitis. This caused him to experience some delirium while he was admitted. He has since been treated with antibiotics and is feeling much better. His AMS has resolved. He will need to continue this antibiotic (Keflex) for another 9 days. In addition, his Sensipar dose was increased to 60mg daily. Total Time Spent: Greater than 30 minutes This includes examination of the patient, discharge planning, medication reconciliation, and communication with other providers. Discharge Instructions Please refer to the electronic Patient Visit Report (Discharge Instructions) for additional information. Follow-Up Dr. Egan, your forex trader, will be following your Calcium Levels while out of the hospital. You will need to have bloodwork done on January 15, to measure your Calcium Level. You have an appt with Dr. Egan on 01/17. You should also follow up with your Primary Care Doctor on Sunday, 01/15. While you were in the hospital, you were diagnosed with Prostatitis, which is an infection of your prostate gland. You will need to take an antibiotic (Keflex ) for 9 more days to cure this infection. When your prostate was examined, a nodule (growth) was noted on your prostate gland. This could be benign, or it could be something else. You may decide if you would like to have further tests done to determine what type of nodule this is.
[2017-01-10] MEDS ORDERED: LCTX PO (17:06)
[2017-01-10] MEDS ORDERED: KFL500 PO (17:06)
[2017-01-10] MEDS ORDERED: CINA0.42 PO (17:06)
--- NOTE | 2017-01-10 17:16 | Discharge Instructions ---
Discharge Instructions Date of Service Jan 10, 2017. Admission Reason for Admission: Hypercalcemia (high calcium level), Hyperparathyroidism ( overactive parathyroid gland(s)) Discharge Discharge Diagnosis / Problem: High calcium level - improved; suspected Urinary tract infection - improved Discharge Goals Goal(s): Learn about illness, Diagnostic testing, Therapeutic intervention Activity Recommendations Activity Limitations: resume your previous activity (as tolerated) . Instructions / Follow-Up Instructions / Follow-Up From Dr. Todd: 1. Hyperparathyroidism causing high calcium levels - * this is markedly improved at time of discharge * your total calcium level on day of discharge is 10.2 (it was 15 at its peak) * we have spoken to Dr. Brizuela, your emergency services professional, and he recommends INCREASING your sensipar to 60mg twice daily; please start this TONIGHT upon return home * please have your calcium level checked on SUNDAY, January 15, 2017 - you can have this done at [facility] or your family physician's office; give the prescription with the lab test to the lab personnel * please see Dr. Brizuela as scheduled NEXT WEEK 2. Suspected urinary infection / prostatitis - * please take cephalexin ("keflex") 500mg twice a day for 12 more days * begin this TONIGHT on 01/10/17 upon return home 3. Follow-up appointments - * see separate section in this handout * you have 2 appointments this coming week 4. Return to [facility] if - * fever over 100.4 degrees * worsening weakness, lethargy/fatigue, shortness of breath * worsening confusion * any other concerns Current Hospital Diet Patient's current hospital diet: Regular Diet Discharge Diet Recommended Diet: Regular Diet Procedures Procedures Performed: chest x-ray Pending Studies Studies pending at discharge: no Medical Emergencies . Who to Call and When: Medical Emergencies: If at any time you feel your situation is an emergency, please call 911 immediately. . Non-Emergent Contact Non-Emergency issues call your: Primary Care Provider Call Non-Emergent contact if: temperature is above 100.5, you have any medication questions . . "Provider Documentation" section prepared by Art Todd. . VTE Core Measure Inpt VTE Proph given/why not?: Unfractionated heparin SQ
--- NOTE | 2017-01-11 10:37 | Discharge Summary ---
Discharge Summary Date of Service Jan 11, 2017. Discharge Summary Admission Date: Jan 06, 2017 at 18:05 Discharge Date: Jan 10, 2017 Discharge Disposition: Home Principal Diagnosis: hypercalcemia 2nd to primary hyperparathyroidism Problems/Secondary Diagnoses: 1. suspected UTI +/- mild prostatitis 2. COPD 3. h/o perforated diverticulitis s/p sigmoidectomy and colostomy formation 4. BPH 5. prostate nodule 6. CKD stage 2 7. hypokalemia - resolved 8. metabolic encephalopathy - resolved 9. baseline mild cognitive impairment 10. esophagitis / duodenal ulcer - October 2016 11. anemia of chronic disease 12. acute kidney injury - resolved 13. chronic diastolic CHF Procedures: chest x-ray Consultations: PT, OT Medication Reconciliation New Medications: Cephalexin Monohydrate (Cephalexin) 500 Mg Cap 500 MG PO BID for 12 Days, #24 CAP 0 Refills Lactobacillus Acidophilus (Floranex) 1 Tab Tab 4 TAB PO BID for 12 Days, #100 TAB 0 Refills Changed Medications: Cinacalcet Hydrochloride (Sensipar) 30 Mg Tab 60 MG PO BID for 30 Days, #120 TAB 2 Refills (Changed from: Cinacalcet (Sensipar ) 30 Mg Tab Unknown Dose PO UD) Continued Medications: Acetaminophen (Mapap) 325 Mg Tab 650 MG PO Q4H PRN for Pain or Fever for 30 Days Docusate Sodium (Docusate Sodium) 100 Mg Cap 1 CAP PO BID, CAP Enteral Nutrition Formula (Ensure Plus Vanilla) 1 Can Liqd 1 CAN PO DAILY, CAN Finasteride (Proscar) 5 Mg Tab 5 MG PO DAILY, TAB Fluticasone Prop/Salmeterol (Advair Diskus 250-50 Mcg/Dose) 14 Puff/1 Inhaler Aerp 1 PUFF INH BID for 14 Days Guaifenesin (Mucus Relief) 400 Mg Tab 800 MG PO BID Ipratropium-Albuterol (Duoneb) 3 Ml Nebu 3 ML INH QIDR for 30 Days Multiple Vitamins W/ Minerals (Centrum Adults) 1 Tab Tab 1 TAB PO DAILY Ocuvite Preservision (Ocuvite Preservision) 1 Tab Tab 1 TAB PO DAILY, TAB Pantoprazole (Pantoprazole Sodium) 40 Mg Tab 40 MG PO BID for 14 Days, #28 TAB Tamsulosin Hcl (Flomax) 0.4 Mg Cap 0.4 MG PO DAILY, CAP WITH EVENING MEAL Discontinued Medications: Ferrous Sulfate (Ferrous Sulfate) 325 Mg Tab 325 MG PO BIDM for 14 Days, TAB Discharge Exam Physical Exam: General Appearance: no apparent distress, + thin ENT: pharynx normal Neck: no JVD Respiratory/Chest: lungs clear, no respiratory distress, no accessory muscle use Cardiovascular: regular rate, rhythm, no gallop, no murmur, normal peripheral pulses Abdomen / GI: normal bowel sounds, non tender, soft, no organomegaly, + pertinent finding (colostomy in place, bag with brown stool) Extremities: + pedal edema (<1+ b/l) Neurologic/Psychiatric: alert, oriented x 3 Skin: no rash Hospital Course HISTORY OF PRESENT ILLNESS: Pt is a 81yo male who presents to the ER as a referral for complaint of hypercalcemia. Pt was diagnosed with hyperparathyroid disease in October of this year and follows with Dr Brizuela. His grand-daughter (who works in the [facility] lab) was notified of the patient's high calcium level after he had undergone routine surveillance blood work for his hyperparathyroidism. Upon evaluation pt denies any chest pain, shortness of breath, joint pain, palpitations, fevers or chills, N/V/D. Family does report that pt has had poor PO intake. He is currently taking Cinacalcet for the hypercalcemia. HOSPITAL COURSE: The patient's peak total calcium level was 15, improving to 10.2 at discharge. He was treated with IV bisphosphonate (zometa) and IVF. Diuretics were not needed. Phone consultation with his primary stand up forklift operator, Dr. Brizuela, was held and he recommended an increase in his sensipar to 60mg BID. He will need a repeat BMP about [address] Brizuela will then see him shortly after. In addition to the above it was suspected the patient had a mild UTI +/- mild prostatitis. He had low-grade fevers and a dirty u/a; urine culture, however, was negative. He will complete a course of keflex twice daily following discharge for the suspected urinary tract infection. Lastly the patient had mild acute kidney injury with presenting creatinine of 1.4, improving to 1.1 at discharge. This was likely 2nd to dehydration in the setting of his severe hypercalcemia. All other medical problems remained stable while hospitalized. He was cleared by PT/OT to return home. Total Time Spent: Greater than 30 minutes This includes examination of the patient, discharge planning, medication reconciliation, and communication with other providers. Discharge Instructions Please refer to the electronic Patient Visit Report (Discharge Instructions) for additional information. Follow-Up 1. Dr. Manuelito Brizuela - [facility] - SundayJanuary 17 at 1:40 pm. 2. Ashley Mojica PA-C - SundayJanuary 15 at 2:00 pm. Additional Copies To Manuelito Brizuela M.D.; Ashley MojicaPTrevor.
== END 2017-01-10 18:00 | disposition home or self-care (01) | DRG 644 ==
LOC: C.EDB 15:11 → C.2T 18:05 → ENRESERV 18:21 → C.2T 01-07 19:02 → ENRESERV 01-09 16:56 → C.4E 01-09 17:56
PROVIDERS: ADMIT Hospitalist; ATTEND Internal Medicine
DX: E21.0 Primary hyperparathyroidism (principal); N17.9 Acute kidney failure, unspecified; I13.0 Hypertensive heart and chronic kidney disease with heart failure and stage 1 through stage 4 chronic kidney disease, or unspecified chronic kidney disease; I50.32 Chronic diastolic (congestive) heart failure; N39.0 Urinary tract infection, site not specified; E86.0 Dehydration; D64.9 Anemia, unspecified; E87.6 Hypokalemia; J44.9 Chronic obstructive pulmonary disease, unspecified; N18.3 Chronic kidney disease, stage 3 (moderate); N40.0 Benign prostatic hyperplasia without lower urinary tract symptoms; Z93.3 Colostomy status; Z90.49 Acquired absence of other specified parts of digestive tract; Z87.19 Personal history of other diseases of the digestive system; Z87.891 Personal history of nicotine dependence; Z79.899 Other long term (current) drug therapy; Z82.49 Family history of ischemic heart disease and other diseases of the circulatory system

== ENCOUNTER → 2017-01-06 | Outpatient (CLI) | payer OTHER ==
[2017-01-06 10:42] LABS: BASO % 0.6 %; BASO ABS # 0.04 K/uL (0-0.2); COMPLETE YES; EOS % 3.5 %; HEMATOCRIT 31.1 % (42-52); IG% 0.3 %; LYMPH % 11.8 %; LYMPH ABS # 0.73 K/uL (1.2-3.4); MEAN CELL VOLUME 88.4 fL (80-100); MEAN CORPUSCULAR HEMOGLOBIN 27.8 pg (25-34); MEAN CORPUSCULAR HGB CONC 31.5 g/dl (32-36); MEAN PLATELET VOLUME 10.6 fL (7.4-10.4); MONO % 10.3 %; NEUT % 73.5 %; PLATELET COUNT 274 K/uL (130-400); RED BLOOD COUNT 3.52 M/uL (4.7-6.1)
[2017-01-06 11:26] LABS: PROSTATE SPECIFIC ANTIGEN 1.72 ng/ml (0.000-4.000); THYROID STIMULATING HORMONE 3.44 uIu/ml (0.300-4.500)
[2017-01-06 12:38] LABS: ALKALINE PHOSPHATASE 83 U/L (45-117); ALT/SGPT 11 U/L (12-78); AST/SGOT 10 U/L (15-37); BLOOD UREA NITROGEN 32 mg/dl (7-18); BUN/CREATININE RATIO 21.3 (10-20); CALCIUM 13.9 mg/dl (8.5-10.1); CARBON DIOXIDE 29 mmol/L (21-32); CHLORIDE 107 mmol/L (98-107); GLUCOSE 89 mg/dl (70-99); POTASSIUM 3.8 mmol/L (3.5-5.1); SODIUM 144 mmol/L (136-145)
== END | disposition home or self-care (01) ==
LOC: C.LABSPEC 09:59
PROVIDERS: ATTEND Internal Medicine Endocrinology, Diabetes & Metabolism
DX: E21.3 Hyperparathyroidism, unspecified (principal); E83.52 Hypercalcemia; D64.9 Anemia, unspecified; E88.09 Other disorders of plasma-protein metabolism, not elsewhere classified; N40.2 Nodular prostate without lower urinary tract symptoms

== ENCOUNTER → 2017-01-15 | Outpatient (CLI) | payer OTHER ==
[~2017-01-15] MED LIST changes: -Boost PO; +CINA0.42 PO; -FRRS300 PO; -GFNSR600 PO; +GUAI400T29 PO; +KFL500 PO; +LCTX PO; -LSX20 PO; -MCRK20 PO; -MGNO400 PO
[2017-01-15 17:22] LABS: BLOOD UREA NITROGEN 13 mg/dl (7-18); BUN/CREATININE RATIO 13.1 (10-20); CALCIUM 9.2 mg/dl (8.5-10.1); CARBON DIOXIDE 23 mmol/L (21-32); CHLORIDE 110 mmol/L (98-107); GLUCOSE 67 mg/dl (70-99); POTASSIUM 4.1 mmol/L (3.5-5.1); SODIUM 141 mmol/L (136-145)
== END | disposition home or self-care (01) ==
LOC: C.LABBFT 14:45
PROVIDERS: ATTEND Internal Medicine Endocrinology, Diabetes & Metabolism
DX: Z00.00 Encounter for general adult medical examination without abnormal findings (principal); E83.52 Hypercalcemia; E88.09 Other disorders of plasma-protein metabolism, not elsewhere classified; E21.3 Hyperparathyroidism, unspecified

== ENCOUNTER → 2017-01-22 | Outpatient (CLI) | payer OTHER ==
[2017-01-22 17:58] LABS: CALCIUM 10.9 mg/dl (8.5-10.1)
== END | disposition home or self-care (01) ==
LOC: C.LABBFT 15:22
PROVIDERS: ATTEND Internal Medicine Endocrinology, Diabetes & Metabolism
DX: E83.52 Hypercalcemia (principal); E21.3 Hyperparathyroidism, unspecified

== ENCOUNTER → 2017-01-29 | Outpatient (CLI) | payer OTHER | END | disposition home or self-care (01) | LOC: C.LABBFT 15:10 | PROVIDERS: ATTEND Internal Medicine Endocrinology, Diabetes & Metabolism | DX: E83.52 Hypercalcemia (principal) ==

== ENCOUNTER → 2017-02-12 | Outpatient (CLI) | payer OTHER ==
[~2017-02-12] MED LIST changes: +CINA60TA PO; +LSXL IV; +MRLP17X PO; +URC10 PO
== END | disposition home or self-care (01) ==
LOC: C.LABBFT 15:14
PROVIDERS: ATTEND Internal Medicine Endocrinology, Diabetes & Metabolism
DX: E83.52 Hypercalcemia (principal)

== ENCOUNTER → 2017-02-15 | Outpatient (CLI) | payer OTHER ==
--- NOTE | 2017-02-15 15:56 | DIAGNOSTIC IMAGING REPORT ---
SOFT TISS HEAD/NECK-THYROID HISTORY: HYPERPARATHYROIDISM COMPARISON: None. FINDINGS: Right lobe: Maximum linear dimension 4.6 cm. Several large benign-appearing calcifications. 5 mm upper pole hypoechoic nodule. 7 mm hypoechoic nodule lower pole. Left lobe: Maximum dimension 4.1 cm. Cystic nodules upper pole measuring 9 and 6 mm respectively. 6 mm mid pole nodule. 1.6 x 1.5 cm lower pole nodule. 2 x 1.2 cm exophytic nodule adjacent to the lower pole left thyroid with an additional 1.6 x 0.4 cm exophytic nodule adjacent to the lower pole of the right thyroid. Parathyroid adenomas are not excluded. Isthmus: No nodules. IMPRESSION: 1. Multinodular thyroid. 2. Dominant nodule lower aspect left thyroid measuring 1.6 x 1.5 cm. 3. Exophytic nodules adjacent to the lower poles of the right as well as left thyroid raising the possibility of parathyroid adenomas. The above report was generated using voice recognition software. It may contain grammatical, syntax or spelling errors. Electronically signed by: Jagdish Shrestha M.D. 02/15/2017 3:55 PM Dictated Date/Time: 02/15/2017 3:52 PM
--- NOTE | 2017-02-15 20:52 | DIAGNOSTIC IMAGING REPORT ---
NUCLEAR MEDICINE PARATHYROID SCAN WITH SPECT IMAGING CLINICAL HISTORY: HYPERPARATHYROIDISM COMPARISON STUDY: Thyroid ultrasonography dated February 15, 2017 FINDINGS: The patient was injected with 22 mCi of technetium 99m Cardiolite. 15 minute and 3 hour delayed images were acquired. SPECT imaging was performed On initial images, there is increased activity at the level of the left thyroid. Delayed images reveal very subtle persistent increased activity at the level of the lower pole the left thyroid. Given the clinical history, this could indicate a parathyroid adenoma. IMPRESSION: 1. Increased activity at the level of the lower pole the left of the thyroid which minimally persists on delayed imaging. This could be secondary to either a thyroid nodule or parathyroid adenoma. Electronically signed by: Tom Luong M.D. 02/15/2017 8:51 PM Dictated Date/Time: 02/15/2017 8:46 PM
== END | disposition home or self-care (01) ==
LOC: C.ULTR 14:59
PROVIDERS: ATTEND Internal Medicine Endocrinology, Diabetes & Metabolism
DX: E83.52 Hypercalcemia (principal); R93.8 Abnormal findings on diagnostic imaging of other specified body structures; E04.2 Nontoxic multinodular goiter

== ENCOUNTER 2017-02-26 19:22 | Emergency (ER) | payer OTHER ==
[~2017-02-26] VITALS: Ht 177.8 cm; Wt 66.0 kg
[~2017-02-26 19:22] MED LIST changes: -CINA0.42 PO; -KFL500 PO
[2017-02-26 19:25] VITALS: TEMP 37; Ht 177.8 cm; Wt 66.0 kg
--- NOTE | 2017-02-26 20:14 | EMERGENCY ROOM VISIT NOTE ---
History Report prepared by Herminio: Colleen Trejo Under the Supervision of: Dr. Sanket Gonzalez D.O. First contact with patient: 19:57 Chief Complaint: FALL Stated Complaint: FALL, LEFT HIP PAIN History of Present Illness The patient is an 81 year old male who presents to the Emergency Room with complaints of a fall that occurred earlier this afternoon. He reports he tripped over his feet as he was walking into his house around 1500 today and landed on his right side, hitting his right hip and right hand. He did not hit his head or lose consciousness. The patient rates his discomfort as a 4/10 in severity and states he is unable to walk. His son reports he has taken no medication for his discomfort. The patient denies any other complaints at today' s visit. Source of History: patient, family (son) Onset: 1500 today Position: other (global) Timing: resolved Associated Symptoms: No LOC Review of Systems See HPI for pertinent positives & negatives. A total of 10 systems reviewed and were otherwise negative. Past Medical & Surgical Medical Problems: (1) Acute blood loss anemia (2) COPD (chronic obstructive pulmonary disease) (3) Hypercalcemia (4) Hyperparathyroidism (5) Hypertension (6) Pneumoperitoneum (7) Severe anemia Surgical Problems: (1) History of colectomy Family History Cancer Myocardial infarction Social History Smoking Status: Former Smoker Drug Use: none Marital Status: Housing Status: other Occupation Status: retired Current/Historical Medications Scheduled Cinecalcet (Sensipar), 180 MG PO BID Docusate Sodium (Docusate Sodium), 1 CAP PO BID Enteral Nutrition Formula (Ensure Plus Vanilla), 1 CAN PO DAILY Finasteride (Proscar), 5 MG PO DAILY Fluticasone Prop/Salmeterol (Advair Diskus 250-50 Mcg/Dose), 1 PUFF INH BID Furosemide (Furosemide), 20 MG IV Q12 Guaifenesin (Mucus Relief), 800 MG PO BID Ipratropium-Albuterol (Duoneb), 3 ML INH QIDR Lactobacillus Acidophilus (Floranex), 4 TAB PO BIDM Multiple Vitamins W/ Minerals (Centrum Adults), 1 TAB PO DAILY Ocuvite Preservision (Ocuvite Preservision), 1 TAB PO DAILY Pantoprazole (Pantoprazole Sodium), 40 MG PO BID Potassium Citrate (Potassium Citrate), 10 MEQ PO BID Tamsulosin Hcl (Flomax), 0.4 MG PO DAILY Scheduled PRN Acetaminophen (Mapap), 650 MG PO Q4H PRN for Pain or Fever Polyethylene (Miralax), 17 GM PO DAILY PRN for Constipation Allergies Coded Allergies: No Known Allergies (Unverified , 11/05/16) Physical Exam Vital Signs Date Time Temp Pulse Resp B/P (MAP) Pulse Ox O2 Delivery O2 Flow Rate FiO2 02/26/17 21:25 87 18 135/60 94 Room Air 02/26/17 19:25 37.0 90 18 128/70 96 Room Air Physical Exam GENERAL: Patient is awake, alert, in no acute distress, patient is resting comfortably and showing no signs of anxiety EYES: The conjunctivae are clear. The pupils are round and reactive. EARS, NOSE, MOUTH AND THROAT: The nose is without any evidence of any deformity. Mucous membranes are moist tongue is midline NECK: The neck is nontender and supple. RESPIRATORY: Normal respiratory effort is noted there is no evidence of wheezing rhonchi or rales CARDIOVASCULAR: Regular rate and rhythm noted there no murmurs rubs or gallops normal S1 normal S2 GASTROINTESTINAL: The abdomen is soft. Bowel sounds are present in all quadrants. Abdomen is nontender BACK: No midline tenderness or or step-off noted range of motion in flexion extension as well as rotation no signs of muscle spasm noted MUSCULOSKELETAL/EXTREMITIES: No deformity noted of either lower extremities. Pain over lateral aspect of right hip with ROM testing. SKIN: There is no obvious evidence of any rash. There are no petechiae, pallor or cyanosis noted. NEUROLOGIC: Patient is awake alert and oriented x3 Medical Decision & Procedures ER Provider Diagnostic Interpretation: Radiology results as stated below per my review and radiologist interpretation: R FEMUR 2 VIEWS ROUTINE CLINICAL HISTORY: Left hip pain following fall. COMPARISON: None FINDINGS: There is complete loss of the left hip joint space with flattening of the femoral head, osteophytosis and sclerosis consistent with end-stage osteoarthritis. No acute fracture of the left hip is identified. There is no acute fracture the left femur. Alignment of the left knee is anatomic. IMPRESSION: 1. No acute fracture of the left femur. 2. End-stage osteoarthritis of the left hip. Electronically signed by: Law Galan M.D. 02/26/2017 9:24 PM PELVIS 1 OR 2 VIEW ROUTINE CLINICAL HISTORY: Left hip pain following fall. COMPARISON STUDY: CT of the abdomen and pelvis October 25, 2015. FINDINGS: A left lower quadrant ostomy is noted. Sacroiliac joints and symphysis pubis are intact. There is end-stage osteoarthritis of the left hip with flattening of the femoral head. Extensive osteophytosis and sclerosis is noted with complete loss of the joint space. No acute fracture within the pelvis or hips is identified. Note is made of chronic deformity of the left inferior pubic ramus. IMPRESSION: 1. No acute fracture within the pelvis or hips. 2. End-stage osteoarthritis of the left hip. Electronically signed by: Law Galan M.D. 02/26/2017 9:21 PM R FEMUR 2 VIEWS ROUTINE CLINICAL HISTORY: Fall. COMPARISON: None FINDINGS: No acute fracture of the right femur is identified. Alignment of the right hip and right knee is anatomic. IMPRESSION: No acute fracture of the right femur. Electronically signed by: Law Galan M.D. 02/26/2017 9:48 PM ED Course 2004: The patient was evaluated in room A6. A complete history and physical examination were performed. 2100: I reevaluated the patient. He is resting comfortably. 2154: I reevaluated the patient. He is feeling well and resting comfortably. I discussed his results and discharge instructions and he verbalized complete understanding and agreement. Medical Decision Prior records reviewed and summarized above. Triage Nursing notes reviewed and agree them. The patient's history was concerning for traumatic injury. Differential diagnosis: Etiologies such as fracture, dislocation, neurovascular compromise, compartment syndrome, soft tissue injury, as well as others were entertained. The patient is a 81-year-old male who presented to the emergency department for an evaluation of hip pain. The patient had a fall onto his right side suffering an injury to his right hip. He isolated the pain to his lateral hip. He did not have a decreased range of motion or shortening. The patient did not wish to have any pain medication. I discussed the patient's radiographic studies with him. He continues have very significant osteoarthritis of his left hip at the right hip appears to show no signs of fracture. The patient was encouraged to rest and avoid any strenuous activity. He was also encouraged to continue all medications as prescribed and follow-up with his family doctor this week. Otherwise she was encouraged to return to the emergency Department immediately if symptoms change worsen or the need arises. Medication Reconcilliation Current Medication List: was personally reviewed by me Blood Pressure Screening Patient's blood pressure: Normal blood pressure Blood pressure disposition: Did not require urgent referral Impression Primary Impression: Fall Additional Impression: Contusion of right hip Scribe Attestation The scribe's documentation has been prepared under my direction and personally reviewed by me in its entirety. I confirm that the note above accurately reflects all work, treatment, procedures, and medical decision making performed by me. Departure Information Dispostion Home / Self-Care Referrals Mateus Boyd M.D. (PCP) Patient Instructions ED Contusion Hip, [facility] Additional Instructions Call your family to schedule a follow-up appointment. Rest and avoid any strenuous activity. Continue all medications as prescribed. Problem Qualifiers Primary Impression: Fall Encounter type: initial encounter Qualified Codes: W19.XXXA - Unspecified fall, initial encounter Additional Impression: Contusion of right hip Encounter type: initial encounter Qualified Codes: S70.01XA - Contusion of right hip, initial encounter
--- NOTE | 2017-02-26 21:23 | DIAGNOSTIC IMAGING REPORT ---
PELVIS 1 OR 2 VIEW ROUTINE CLINICAL HISTORY: Left hip pain following fall. COMPARISON STUDY: CT of the abdomen and pelvis October 25, 2015. FINDINGS: A left lower quadrant ostomy is noted. Sacroiliac joints and symphysis pubis are intact. There is end-stage osteoarthritis of the left hip with flattening of the femoral head. Extensive osteophytosis and sclerosis is noted with complete loss of the joint space. No acute fracture within the pelvis or hips is identified. Note is made of chronic deformity of the left inferior pubic ramus. IMPRESSION: 1. No acute fracture within the pelvis or hips. 2. End-stage osteoarthritis of the left hip. Electronically signed by: Law Galan M.D. 02/26/2017 9:21 PM Dictated Date/Time: 02/26/2017 9:18 PM
[2017-02-26 21:25] VITALS: BP 135/60; PULSE 87; O2SAT 94
--- NOTE | 2017-02-26 21:26 | DIAGNOSTIC IMAGING REPORT ---
R FEMUR 2 VIEWS ROUTINE CLINICAL HISTORY: Left hip pain following fall. COMPARISON: None FINDINGS: There is complete loss of the left hip joint space with flattening of the femoral head, osteophytosis and sclerosis consistent with end-stage osteoarthritis. No acute fracture of the left hip is identified. There is no acute fracture the left femur. Alignment of the left knee is anatomic. IMPRESSION: 1. No acute fracture of the left femur. 2. End-stage osteoarthritis of the left hip. Electronically signed by: Law Galan M.D. 02/26/2017 9:24 PM Dictated Date/Time: 02/26/2017 9:23 PM
--- NOTE | 2017-02-26 21:49 | DIAGNOSTIC IMAGING REPORT ---
R FEMUR 2 VIEWS ROUTINE CLINICAL HISTORY: Fall. COMPARISON: None FINDINGS: No acute fracture of the right femur is identified. Alignment of the right hip and right knee is anatomic. IMPRESSION: No acute fracture of the right femur. Electronically signed by: Law Galan M.D. 02/26/2017 9:48 PM Dictated Date/Time: 02/26/2017 9:46 PM
== END 2017-02-26 21:55 | disposition home or self-care (01) ==
LOC: C.EDB 19:23 → C.EDA 21:55
DX: S70.01XA Contusion of right hip, initial encounter (principal); W01.0XXA Fall on same level from slipping, tripping and stumbling without subsequent striking against object, initial encounter; Y92.019 Unspecified place in single-family (private) house as the place of occurrence of the external cause; J44.9 Chronic obstructive pulmonary disease, unspecified; E83.52 Hypercalcemia; E21.3 Hyperparathyroidism, unspecified; I10 Essential (primary) hypertension; D64.9 Anemia, unspecified; Z80.9 Family history of malignant neoplasm, unspecified; Z82.49 Family history of ischemic heart disease and other diseases of the circulatory system; Z87.891 Personal history of nicotine dependence; Z79.899 Other long term (current) drug therapy

== ENCOUNTER → 2017-03-05 | Outpatient (CLI) | payer OTHER ==
[2017-03-05 12:46] LABS: CALCIUM 7.3 mg/dl (8.5-10.1)
== END | disposition home or self-care (01) ==
LOC: C.LABBFT 10:37
PROVIDERS: ATTEND Internal Medicine Endocrinology, Diabetes & Metabolism
DX: E21.3 Hyperparathyroidism, unspecified (principal)

== ENCOUNTER → 2017-03-08 | Outpatient (CLI) | payer OTHER | END | disposition home or self-care (01) | LOC: C.LABSPEC 13:28 | PROVIDERS: ATTEND Internal Medicine Endocrinology, Diabetes & Metabolism | DX: E83.51 Hypocalcemia (principal) ==

== ENCOUNTER → 2017-04-17 | Outpatient (CLI) | payer OTHER ==
[~2017-04-17] MED LIST changes: +AMLO10TA3 PO; +AMLO5TAB3 PO; +AZIT500T3 PO; +CALC0.5C PO; +CALC500C3 PO; +CEFD300C3 PO; +CHOL20009 PO; +GUAI1TAB7 PO; +IPRA-64 INH; +IPRA1AER2 INH; -IPRASOL4 INH; +PANT1TAB4 PO; +PRED10TA PO; -PRT40 PO; +SACC250C3 PO
== END | disposition home or self-care (01) ==
LOC: C.LABBFT 14:47
PROVIDERS: ATTEND Internal Medicine Endocrinology, Diabetes & Metabolism
DX: E83.51 Hypocalcemia (principal)

== ENCOUNTER 2017-05-10 08:54 | Emergency (ER) | payer OTHER ==
[~2017-05-10 08:54] MED LIST changes: -AMLO10TA3 PO; -AMLO5TAB3 PO; -AZIT500T3 PO; -CALC0.5C PO; -CALC500C3 PO; -CEFD300C3 PO; -CHOL20009 PO; -GUAI1TAB7 PO; -IPRA-64 INH; -IPRA1AER2 INH; +IPRASOL4 INH; -PANT1TAB4 PO; -PRED10TA PO; +PRT40 PO; -SACC250C3 PO
[2017-05-10 08:56] VITALS: TEMP 36.8; Ht 182.9 cm
--- NOTE | 2017-05-10 09:56 | EMERGENCY ROOM VISIT NOTE ---
History Report prepared by Herminio: Amando Robert Under the Supervision of: Dr. Nivia Lowe M.D. First contact with patient: 09:11 Chief Complaint: OTHER COMPLAINT Stated Complaint: BROKEN OSTOMY BAG History of Present Illness The patient is an 82 year old male who presents to the Emergency Room with complaints of a broken ostomy bag occurring last night. The patient's states that the bag came apart last night, and she was able to tape it up. He has not been sick recently. They have no other complaints. Source of History: patient, spouse/significant other Onset: last night Position: abdomen Quality: other (ostomy bag broken) Timing: constant Review of Systems See HPI for pertinent positives & negatives. A total of 6 systems reviewed and were otherwise negative. Past Medical & Surgical Medical Problems: (1) Acute blood loss anemia (2) COPD (chronic obstructive pulmonary disease) (3) Hypercalcemia (4) Hyperparathyroidism (5) Hypertension (6) Pneumoperitoneum (7) Severe anemia Surgical Problems: (1) History of colectomy Family History Cancer Myocardial infarction Social History Smoking Status: Former Smoker Drug Use: none Marital Status: Housing Status: other Occupation Status: retired Current/Historical Medications Scheduled Cinecalcet (Sensipar), 180 MG PO BID Docusate Sodium (Docusate Sodium), 1 CAP PO BID Enteral Nutrition Formula (Ensure Plus Vanilla), 1 CAN PO DAILY Finasteride (Proscar), 5 MG PO DAILY Fluticasone Prop/Salmeterol (Advair Diskus 250-50 Mcg/Dose), 1 PUFF INH BID Furosemide (Furosemide), 20 MG IV Q12 Guaifenesin (Mucus Relief), 800 MG PO BID Ipratropium-Albuterol (Duoneb), 3 ML INH QIDR Lactobacillus Acidophilus (Floranex), 4 TAB PO BIDM Multiple Vitamins W/ Minerals (Centrum Adults), 1 TAB PO DAILY Ocuvite Preservision (Ocuvite Preservision), 1 TAB PO DAILY Pantoprazole (Pantoprazole Sodium), 40 MG PO BID Potassium Citrate (Potassium Citrate), 10 MEQ PO BID Tamsulosin Hcl (Flomax), 0.4 MG PO DAILY Scheduled PRN Acetaminophen (Mapap), 650 MG PO Q4H PRN for Pain or Fever Polyethylene (Miralax), 17 GM PO DAILY PRN for Constipation Allergies Coded Allergies: No Known Allergies (Unverified , 05/10/17) Physical Exam Vital Signs Date Time Temp Pulse Resp B/P (MAP) Pulse Ox O2 Delivery O2 Flow Rate FiO2 05/10/17 11:22 79 16 140/76 94 05/10/17 08:56 36.8 90 20 151/69 94 Room Air Physical Exam Vital signs reviewed. General: Well-appearing male, in no significant distress. Abdomen: Abdomen to the left lower quadrant. Soft, nontender, nondistended, positive bowel sounds. Musculoskeletal: Atraumatic, no peripheral edema. Neurologic: Patient awake alert and oriented x 3 Skin: Warm, dry, no rash Medical Decision & Procedures ED Course 09: Past medical records reviewed. The patient was evaluated in room B8. A complete history and physical examination was performed. 1050: Upon reevaluation, the patient appeared to have improvement of his symptoms. I discussed findings with him. He verbalized agreement of the treatment plan. He was discharged home. Medical Decision This patient was evaluated and appeared to be in no significant distress. The ostomy box was ordered and nursing staff change the ostomy bag and wafer. Patient and seemed comfortable. The granddaughter normally cares for the patient's ostomy however she is at work today. They will continue current care and follow-up with the PCP. They will return to the ER for worsening of symptoms or any medical concerns. Medication Reconcilliation Current Medication List: was personally reviewed by me Blood Pressure Screening Patient's blood pressure: Elevated blood pressure Blood pressure disposition: Elevated BP felt to be situational Impression Primary Impression: Colostomy complication Scribe Attestation The scribe's documentation has been prepared under my direction and personally reviewed by me in its entirety. I confirm that the note above accurately reflects all work, treatment, procedures, and medical decision making performed by me. Departure Information Dispostion Home / Self-Care Referrals Mateus Boyd M.D. (PCP) Forms HOME CARE DOCUMENTATION FORM, IMPORTANT VISIT INFORMATION, WORK / SCHOOL INSTRUCTIONS Patient Instructions [facility] Additional Instructions Diagnosis: Colostomy malfunction Please continued ostomy care as directed. Follow-up with your physician for reevaluation or further colostomy issues.
[2017-05-10 11:22] VITALS: BP 140/76; PULSE 79; O2SAT 94
== END 2017-05-10 11:23 | disposition home or self-care (01) ==
LOC: C.EDB 08:57
DX: K94.03 Colostomy malfunction (principal); J44.9 Chronic obstructive pulmonary disease, unspecified; I10 Essential (primary) hypertension; E83.52 Hypercalcemia; E21.3 Hyperparathyroidism, unspecified; D64.9 Anemia, unspecified; D62 Acute posthemorrhagic anemia; Z87.891 Personal history of nicotine dependence

== ENCOUNTER → 2017-05-22 | Outpatient (CLI) | payer OTHER ==
[2017-05-22 17:57] LABS: BASO % 1.2 %; BASO ABS # 0.09 K/uL (0-0.2); EOS % 3.8 %; EOS ABS # 0.29 K/uL (0-0.5); HEMATOCRIT 33.3 % (42-52); HEMOGLOBIN 10.6 g/dL (14.0-18.0); IG# 0.02 K/uL (0.00-0.02); LYMPH % 13.4 %; LYMPH ABS # 1.03 K/uL (1.2-3.4); MEAN CELL VOLUME 91.2 fL (80-100); MEAN CORPUSCULAR HGB CONC 31.8 g/dl (32-36); MONO % 8.2 %; MONO ABS # 0.63 K/uL (0.11-0.59); NEUT % 73.1 %; PLATELET COUNT 421 K/uL (130-400); RED CELL DISTRIBUTION WIDTH CV 14.7 % (11.5-14.5); RED CELL DISTRIBUTION WIDTH SD 49.5 fL (36.4-46.3); WHITE BLOOD COUNT 7.66 K/uL (4.8-10.8)
[2017-05-22 18:16] LABS: ALBUMIN 3.4 gm/dl (3.4-5.0); ALT/SGPT 17 U/L (12-78); AST/SGOT 10 U/L (15-37); BLOOD UREA NITROGEN 19 mg/dl (7-18); CALCIUM 9.5 mg/dl (8.5-10.1); CARBON DIOXIDE 27 mmol/L (21-32); GLUCOSE 94 mg/dl (70-99); POTASSIUM 3.3 mmol/L (3.5-5.1); SODIUM 140 mmol/L (136-145)
[2017-05-22 18:19] LABS: ALKALINE PHOSPHATASE 77 U/L (45-117); CHOLESTEROL 157 mg/dl (0-200); LDL CHOLESTEROL CALCULATED 63 mg/dl; TOTAL PROTEIN 7.3 gm/dl (6.4-8.2)
== END | disposition home or self-care (01) ==
LOC: C.LABBFT 14:31
PROVIDERS: ATTEND Internal Medicine
DX: D64.9 Anemia, unspecified (principal); E55.9 Vitamin D deficiency, unspecified; Z13.6 Encounter for screening for cardiovascular disorders

== ENCOUNTER 2017-06-11 11:48 | Inpatient (IN) | payer OTHER ==
[~2017-06-11] VITALS: Ht 175.3 cm; Wt 62.8 kg
[2017-06-11] MEDS ORDERED: ALBUT/IPRATROP 3MG/0.5MG NEB 3 ML VIAL INH STA (12:35)
[2017-06-11] MEDS ORDERED: MAGNESIUM SULFATE 1GM / D5W 1 GM BAG IV STA (12:35)
[2017-06-11] MEDS ORDERED: SODIUM CHLORIDE 0.9% 1000ML 1,000 ML IV STA (12:35)
[2017-06-11] MEDS ORDERED: METHYLPREDNISOLONE 125 MG VIAL IV STA (12:35)
[2017-06-11] MEDS ORDERED: AZITHROMYCIN 250 MG TAB PO ONE (12:45)
[2017-06-11 12:57] LABS: BASO % 0.4 %; BASO ABS # 0.05 K/uL (0-0.2); EOS % 0.7 %; EOS ABS # 0.09 K/uL (0-0.5); HEMATOCRIT 33.7 % (42-52); IG# 0.03 K/uL (0.00-0.02); LYMPH % 4.2 %; LYMPH ABS # 0.53 K/uL (1.2-3.4); MEAN CORPUSCULAR HEMOGLOBIN 28.7 pg (25-34); MEAN CORPUSCULAR HGB CONC 32.6 g/dl (32-36); MEAN PLATELET VOLUME 9.1 fL (7.4-10.4); MONO % 6.6 %; MONO ABS # 0.84 K/uL (0.11-0.59); NEUT % 87.9 %; NEUT ABS # 11.13 K/uL (1.4-6.5); PLATELET COUNT 455 K/uL (130-400); RED CELL DISTRIBUTION WIDTH CV 14.7 % (11.5-14.5); RED CELL DISTRIBUTION WIDTH SD 47.2 fL (36.4-46.3); WHITE BLOOD COUNT 12.67 K/uL (4.8-10.8)
--- NOTE | 2017-06-11 13:11 | DIAGNOSTIC IMAGING REPORT ---
CHEST ONE VIEW PORTABLE CLINICAL HISTORY: Syncope. Altered mental status. Weakness. COMPARISON STUDY: 01/06/2017 FINDINGS: There is severe pulmonary emphysema. There is blunting of both lateral costophrenic angle suggesting small effusions. There are bibasal airspace opacities left greater than right. The findings are viewed as suspicious for a pneumonia. Films subsequent to treatment are recommended in follow-up.[ IMPRESSION: 1. Severe emphysema 2. Trace pleural effusions 3. Bibasal airspace opacities left greater than right. The findings are suspicious for pneumonia. Radiographic follow-up is recommended Electronically signed by: Tom Luong M.D. 06/11/2017 1:10 PM Dictated Date/Time: 06/11/2017 1:09 PM
[2017-06-11 13:13] LABS: ALBUMIN 3.2 gm/dl (3.4-5.0); BLOOD UREA NITROGEN 22 mg/dl (7-18); CALCIUM 9.2 mg/dl (8.5-10.1); CARBON DIOXIDE 29 mmol/L (21-32); CREATININE 1.13 mg/dl (0.60-1.40); GLUCOSE 107 mg/dl (70-99); POTASSIUM 3.6 mmol/L (3.5-5.1); SODIUM 140 mmol/L (136-145)
[2017-06-11 13:14] LABS: INR 1.1 (0.9-1.1); PTT PATIENT 27.5 SECONDS (21.0-31.0)
[2017-06-11 13:23] LABS: ALKALINE PHOSPHATASE 79 U/L (45-117); ALT/SGPT 18 U/L (12-78); AST/SGOT 13 U/L (15-37); PHOSPHORUS 3.5 mg/dl (2.5-4.9); TOTAL PROTEIN 7.2 gm/dl (6.4-8.2)
--- NOTE | 2017-06-11 13:37 | DIAGNOSTIC IMAGING REPORT ---
HEAD WITHOUT CONTRAST (CT) CLINICAL HISTORY: 82 years-old Male with EVALUATE ALTERED MENTAL STATUS/WEAKNESS. Acute weakness with altered mental status TECHNIQUE: Multiple axial CT images of the head were obtained without contrast. A dose lowering technique was utilized adhering to the principles of ALARA. CT DOSE: 614.27 mGy.cm COMPARISON: Head CT 11/05/2016. FINDINGS: No acute intracranial hemorrhage, midline shift, intracranial mass, hydrocephalus, territorial ischemia or abnormal extra-axial collection. Mild atrophy. Ill-defined areas of low attenuation are seen within the subcortical and periventricular white matter suggesting mild chronic microvascular ischemic changes. The calvarium is intact. Small bilateral mastoid effusions. Paranasal sinuses appear generally clear. Scalp, calvarium and soft tissues are unremarkable. Orbits appear symmetric. IMPRESSION: No acute intracranial abnormality. The above report was generated using voice recognition software. It may contain grammatical, syntax or spelling errors. Electronically signed by: Campbell Sterling M.D. 06/11/2017 1:35 PM Dictated Date/Time: 06/11/2017 1:33 PM
[2017-06-11] MEDS ORDERED: CEFTRIAXONE SOD INJ 1 GM ADDVIAL IV STA (13:54)
[2017-06-11] MEDS ORDERED: CALC500C3 PO (14:05)
[2017-06-11] MEDS ORDERED: GUAI1TAB7 PO (14:05)
[2017-06-11] MEDS ORDERED: AMLO-114 PO (14:05)
[2017-06-11] MEDS ORDERED: CHOL20009 PO (14:05)
[2017-06-11] MEDS ORDERED: IPRA1AER2 INH (14:05)
[2017-06-11] MEDS ORDERED: CALC0.5C PO (14:05)
--- NOTE | 2017-06-11 14:58 | EMERGENCY ROOM VISIT NOTE ---
History Report prepared by Herminio: Elvin Lema Under the Supervision of: Dr. Dwight Robles M.D. First contact with patient: 12:20 Chief Complaint: SYNCOPE Stated Complaint: PASSED OUT, TROUBLE BREATHINGQ History of Present Illness The patient is a 82 year old white male with a past medical history of COPD, HTN , diverticulitis s/p colectomy, hyperparathyroidism who presents to the ED by EMS with a cc of a syncopal episode occurring just prior to arrival. Positive shortness of breath (worsened with exertion). Patient was unconscious for about two minutes. He has a history of syncopal episodes, and his episode was consistent with his normal episodes. Patient does not remember the incident. He fell during the incident, landing on his back side and injured his left arm and right leg. Family states that the patient's pulse ox was 89% today (normally around 92%). They note that the patient's blood pressure was a little low today. They states that he was shaking during the episodes, but this is normal of his episodes. Negative chest pain, abdominal pain, numbness, tingling, or weakness. Patient has a known mass on his left chest which has been evaluated. Most recent syncopal episode was six months ago. Patient had his blood pressure dosage doubled last week. He has not been hydrating well recently. Source of History: patient Onset: Just prior to arrival Symptom Intensity: unconscious for two minutes Quality: other (syncope) Timing: other (episode) Associated Symptoms: + SOB (worse with exertion), No chest pain, No abdominal pain, No weakness, No numbness Note: Positive: right lower leg pain. Negative: tingling. Review of Systems See HPI for pertinent positives and negatives. A total of ten systems were reviewed and were otherwise negative. Past Medical & Surgical Medical Problems: (1) Acute blood loss anemia (2) COPD (chronic obstructive pulmonary disease) (3) Hypercalcemia (4) Hyperparathyroidism (5) Hypertension (6) Pneumoperitoneum (7) Severe anemia Surgical Problems: (1) History of colectomy Family History Cancer Myocardial infarction Social History Smoking Status: Unknown if Ever Smoked Drug Use: none Marital Status: Housing Status: other Occupation Status: retired Current/Historical Medications Scheduled Amlodipine (Norvasc), 10 MG PO DAILY Calcitriol (Calcitriol), 0.5 MCG PO DAILY Cholecalciferol (Vitamin D), 2,000 UNITS PO DAILY Docusate Sodium (Docusate Sodium), 1 CAP PO BID Finasteride (Proscar), 5 MG PO DAILY Fluticasone Prop/Salmeterol (Advair Diskus 250-50 Mcg/Dose), 1 PUFF INH BID Guaifenesin (Guaifenesin), 1 TAB PO BID Ipratropium-Albuterol (Combivent Respimat), 1 PUFFS INH QID Multiple Vitamins W/ Minerals (Centrum Adults), 1 TAB PO DAILY Ocuvite Preservision (Ocuvite Preservision), 1 TAB PO DAILY Pantoprazole (Pantoprazole Sodium), 40 MG PO BID Scheduled PRN Calcium Carbonate (Antacid) (Tums), 1 TAB PO DAILY PRN for GI Upset Allergies Coded Allergies: No Known Allergies (Unverified , 05/10/17) Physical Exam Vital Signs Date Time Temp Pulse Resp B/P (MAP) Pulse Ox O2 Delivery O2 Flow Rate FiO2 06/11/17 14:20 93 20 129/65 94 Room Air 06/11/17 13:03 77 143/69 72 135/68 80 117/62 06/11/17 12:39 91 Room Air 06/11/17 12:31 76 06/11/17 12:13 36.5 72 20 108/62 91 Room Air Physical Exam GENERAL: Awake, alert, well-appearing, NAD HENT: Normocephalic, atraumatic. EYES: Normal conjunctiva. Sclera non-icteric. NECK: Supple. No nuchal rigidity. FROM. No midline C-spine TTP. RESPIRATORY: Diffuse wheezing throughout. Shallow breath sounds. CARDIAC: RRR, no MRG ABDOMEN: Soft, NTND, BS+ MSK: No chest wall TTP, rubbery mass in left chest. No LE edema. No UE, LE, back or hip pain. NEURO: CN 2-12 intact, 5/5 upper and lower extremity strength, no dysmetria, no drift, good finger to nose, no sensory deficits. SKIN: No rash or jaundice noted. Medical Decision & Procedures ER Provider Diagnostic Interpretation: Radiology results as stated below per my review and radiologist interpretation: HEAD WITHOUT CONTRAST (CT) FINDINGS: No acute intracranial hemorrhage, midline shift, intracranial mass, hydrocephalus, territorial ischemia or abnormal extra-axial collection. Mild atrophy. Ill-defined areas of low attenuation are seen within the subcortical and periventricular white matter suggesting mild chronic microvascular ischemic changes. The calvarium is intact. Small bilateral mastoid effusions. Paranasal sinuses appear generally clear. Scalp, calvarium and soft tissues are unremarkable. Orbits appear symmetric. IMPRESSION: No acute intracranial abnormality. The above report was generated using voice recognition software. It may contain grammatical, syntax or spelling errors. Electronically signed by: Campbell Sterling M.D. 06/11/2017 1:35 PM CHEST ONE VIEW PORTABLE FINDINGS: There is severe pulmonary emphysema. There is blunting of both lateral costophrenic angle suggesting small effusions. There are bibasal airspace opacities left greater than right. The findings are viewed as suspicious for a pneumonia. Films subsequent to treatment are recommended in follow-up.[ IMPRESSION: 1. Severe emphysema 2. Trace pleural effusions 3. Bibasal airspace opacities left greater than right. The findings are suspicious for pneumonia. Radiographic follow-up is recommended Electronically signed by: Tom Luong M.D. 06/11/2017 1:10 PM Laboratory Results 06/11/17 12:48 Red Blood Count 3.83, Mean Corpuscular Volume 88.0, Mean Corpuscular Hemoglobin 28.7, Mean Corpuscular Hemoglobin Concent 32.6, Mean Platelet Volume 9.1, Neutrophils (%) (Auto) 87.9, Lymphocytes (%) (Auto) 4.2, Monocytes (%) (Auto) 6.6, Eosinophils (%) (Auto) 0.7, Basophils (%) (Auto) 0.4, Neutrophils # (Auto) 11.13, Lymphocytes # (Auto) 0.53, Monocytes # (Auto) 0.84, Eosinophils # (Auto) 0.09, Basophils # (Auto) 0.05 06/11/17 12:48 Test 06/11/17 12:48 White Blood Count 12.67 K/uL (4.8-10.8) Red Blood Count 3.83 M/uL (4.7-6.1) Hemoglobin 11.0 g/dL (14.0-18.0) Hematocrit 33.7 % (42-52) Mean Corpuscular Volume 88.0 fL (80-100) Mean Corpuscular Hemoglobin 28.7 pg (25-34) Mean Corpuscular Hemoglobin Concent 32.6 g/dl (32-36) Platelet Count 455 K/uL (130-400) Mean Platelet Volume 9.1 fL (7.4-10.4) Neutrophils (%) (Auto) 87.9 % Lymphocytes (%) (Auto) 4.2 % Monocytes (%) (Auto) 6.6 % Eosinophils (%) (Auto) 0.7 % Basophils (%) (Auto) 0.4 % Neutrophils # (Auto) 11.13 K/uL (1.4-6.5) Lymphocytes # (Auto) 0.53 K/uL (1.2-3.4) Monocytes # (Auto) 0.84 K/uL (0.11-0.59) Eosinophils # (Auto) 0.09 K/uL (0-0.5) Basophils # (Auto) 0.05 K/uL (0-0.2) RDW Standard Deviation 47.2 fL (36.4-46.3) RDW Coefficient of Variation 14.7 % (11.5-14.5) Immature Granulocyte % (Auto) 0.2 % Immature Granulocyte # (Auto) 0.03 K/uL (0.00-0.02) Prothrombin Time 11.4 SECONDS (9.0-12.0) Prothromb Time International Ratio 1.1 (0.9-1.1) Activated Partial Thromboplast Time 27.5 SECONDS (21.0-31.0) Partial Thromboplastin Ratio 1.1 Anion Gap 6.0 mmol/L (3-11) Est Creatinine Clear Calc Drug Dose 43.4 ml/min Estimated GFR () 68.8 Estimated GFR (Non- 59.4 BUN/Creatinine Ratio 19.4 (10-20) Calcium Level 9.2 mg/dl (8.5-10.1) Phosphorus Level 3.5 mg/dl (2.5-4.9) Magnesium Level 2.1 mg/dl (1.8-2.4) Total Bilirubin 0.4 mg/dl (0.2-1) Direct Bilirubin 0.1 mg/dl (0-0.2) Aspartate Amino Transf (AST/SGOT) 13 U/L (15-37) Alanine Aminotransferase (ALT/SGPT) 18 U/L (12-78) Alkaline Phosphatase 79 U/L (45-117) Total Creatine Kinase 50 U/L (39-308) Troponin I < 0.015 ng/ml (0-0.045) Total Protein 7.2 gm/dl (6.4-8.2) Albumin 3.2 gm/dl (3.4-5.0) Thyroid Stimulating Hormone (TSH) 5.610 uIu/ml (0.300-4.500) Laboratory results reviewed by me Medications Administered Medications (Trade) Dose Ordered Sig/Andrzej Route Start Time Stop Time Status Last Admin Dose Admin Sodium Chloride 1,000 ml @ 999 mls/hr Q1H1M STAT IV 06/11/17 12:35 06/11/17 13:35 DC 06/11/17 12:59 999 MLS/HR Albuterol/ Ipratropium (Duoneb) 9 ml ONE STAT INH 06/11/17 12:35 06/11/17 12:38 DC 06/11/17 12:59 9 ML Methylprednisolone Sodium Succinate (Solu-Medrol IV) 125 mg NOW STAT IV 06/11/17 12:35 06/11/17 12:38 DC 06/11/17 12:59 125 MG Magnesium Sulfate (Magnesium Sulfate) 1 gm NOW STAT IV 06/11/17 12:35 06/11/17 12:38 DC 06/11/17 12:59 1 GM Azithromycin (Zithromax Tab) 500 mg NOW ONCE PO 06/11/17 12:45 06/11/17 12:46 DC 06/11/17 12:59 500 MG Ceftriaxone Sodium (Rocephin Inj) 1 gm NOW STAT IV 06/11/17 13:54 06/11/17 13:56 DC 06/11/17 14:19 1 GM ECG Per My Interpretation Indication: syncope Rate (beats per minute): 76 Rhythm: normal sinus Findings: T-wave inversion (AVL), left axis deviation, no ectopy, other ( Normal intervals. ) Comparison ECG Date: January 08, 2017 Change: no significant change ED Course 1228: The patient was evaluated in room B7. A complete history and physical exam was performed. 1445: Upon reexamination, the patient was resting comfortably. I discussed the test results and treatment plan with him. The patient will be evaluated for further management. Medical Decision The patient is a 82 year old white male with a past medical history of COPD, HTN , diverticulitis s/p colectomy, hyperparathyroidism who presents to the ED by EMS with a cc of a syncopal episode occurring just prior to arrival. Differential diagnosis: Etiologies such as vasovagal event, infection, hypoglycemia, electrolyte abnormalities, cardiac sources, intracerebral event, toxicologic, neurologic, as well as others were entertained. Patient was seen and evaluated at the bedside. Patient reportedly had a syncopal episode with questionable seizure-like activity. Patient denies any tongue biting or incontinence. Patient did not strike his head. It was witnessed by family members. He is approximate for 2 minutes. Patient does have prior history of COPD and they are concerned about his breathing. On exam the patient has does have diffuse wheezing and shallow breath sounds. Patient was treated with has a COPD exacerbation along with a chest x-ray, EKG and blood work. Patient does have chronic stable anemia. Patient has a negative troponin. Patient's EKG does show a single T-wave inversion in aVL however this is fairly unchanged from prior. No overt arrhythmia noted. Intervals are normal. Chest x-ray does show a questionable developing pneumonia. Patient was given Rocephin in addition to the azithromycin for the pneumonia. Patient has had intermittent hypoxia at 88-89% on room air. Patient does not normally use O2. I did discuss the patient with the hospitalist. Patient is admitted. Medication Reconcilliation Current Medication List: was personally reviewed by me Blood Pressure Screening Patient's blood pressure: Normal blood pressure Blood pressure disposition: Did not require urgent referral Consults Time Called: 1445 Consulting Physician: Dr. Sears [facility] [place] Hospitalist Returned Call: [phone] Discussed the patient's case. The patient will be evaluated for further treatment and disposition. Impression Primary Impression: Syncope Additional Impressions: COPD (chronic obstructive pulmonary disease) Anemia Pneumonia Scribe Attestation The scribe's documentation has been prepared under my direction and personally reviewed by me in its entirety. I confirm that the note above accurately reflects all work, treatment, procedures, and medical decision making performed by me. Departure Information Dispostion Being Evaluated By Hospitalist Referrals Mateus Boyd M.D. (PCP) Patient Instructions My [facility] Problem Qualifiers Primary Impression: Syncope Syncope type: unspecified Qualified Codes: R55 - Syncope and collapse Additional Impressions: COPD (chronic obstructive pulmonary disease) COPD type: emphysema Emphysema type: unspecified Qualified Codes: J43.9 - Emphysema, unspecified Anemia Anemia type: unspecified type Qualified Codes: D64.9 - Anemia, unspecified Pneumonia Pneumonia type: due to unspecified organism Laterality: bilateral Lung location: lower lobe of lung Qualified Codes: J18.9 - Pneumonia, unspecified organism
--- NOTE | 2017-06-11 15:33 | History and Physical ---
History & Physical Date & Time of Service: Jun 11, 2017 at 15:27 Chief Complaint: Passed Out, Trouble Breathingq Primary Care Physician: Mateus Boyd M.D. History of Present Illness Source: patient, family, hospital records 82 years old man with past medical history of diverticulitis status post colectomy currently have a colostomy bag, severe COPD, hypertension, BPH and chronic kidney disease stage III. Patient was in his regular state of health until about 2 weeks ago when some family members had an upper respiratory tract infection. Patient started coughing more than usual. Denies any sputum production. Developed progressive worsening shortness of breath. Patient is not on oxygen at home and usually his oxygen saturation is around 92. Today family wanted to take him to see his primary care physician for the shortness of breath. Patient was sitting on a chair and suddenly lost consciousness and during his fall that she had filled with him but his relative he was who was next to him was able to catch him. Patient had stiffness in his upper body that lasted few minutes until paramedics arrived. On arrival here his oxygen saturation was 88-89% which is lower than his baseline. His blood pressure was borderline low. He was brought to the ED for further evaluation and management. Denies any chest pain or palpitation but chest x-ray revealed bilateral lower density in her lungs. Family History Cancer Myocardial infarction Social History Smoking Status: Unknown if Ever Smoked Drug Use: none Marital Status: Housing status: other Occupational Status: retired Allergies Coded Allergies: No Known Allergies (Unverified , 05/10/17) Home Medications Scheduled Amlodipine (Norvasc), 10 MG PO DAILY Calcitriol (Calcitriol), 0.5 MCG PO DAILY Cholecalciferol (Vitamin D), 2,000 UNITS PO DAILY Docusate Sodium (Docusate Sodium), 1 CAP PO BID Finasteride (Proscar), 5 MG PO DAILY Fluticasone Prop/Salmeterol (Advair Diskus 250-50 Mcg/Dose), 1 PUFF INH BID Guaifenesin (Guaifenesin), 1 TAB PO BID Ipratropium-Albuterol (Combivent Respimat), 1 PUFFS INH QID Multiple Vitamins W/ Minerals (Centrum Adults), 1 TAB PO DAILY Ocuvite Preservision (Ocuvite Preservision), 1 TAB PO DAILY Pantoprazole (Pantoprazole Sodium), 40 MG PO BID Scheduled PRN Calcium Carbonate (Antacid) (Tums), 1 TAB PO DAILY PRN for GI Upset Review of Systems Review of system Constitutional: No fever / no chills / no sweats /has some progressive weakness and fatigue Eyes: no blurring of vision / no eye pain / no discharge / no redness ENT: no hearing loss / no epistaxis /no swallowing problems Respiratory: Dry cough 2 weeks with progressive shortness of breath and wheezing Cardiovascular: no Chest pain / no lower extremity edema / no palpitation Abdomen: no pain / no nausea / no vomiting / no constipation Musculoskeletal: no joint pain / no muscle pain / no joint swelling Genitourinary: no dysuria / no incontinence / no urinary retention Neurologic: no focal weakness / no numbness/tingling / no ataxia Psychiatric: no depression symptoms / no anxiety / no insomnia Endocrine: no excessive thirst / no excessive urination Hematologic: no abnormal bleeding / no bruising / no LN swelling Skin: No rash / no pallor Physical Exam Vital Signs Date Time Temp Pulse Resp B/P (MAP) Pulse Ox O2 Delivery O2 Flow Rate FiO2 06/11/17 15:12 87 Room Air 06/11/17 15:12 91 Nasal Cannula 3.0 06/11/17 14:20 93 20 129/65 94 Room Air 06/11/17 13:03 77 143/69 72 135/68 80 117/62 06/11/17 12:39 91 Room Air 06/11/17 12:31 76 06/11/17 12:13 36.5 72 20 108/62 91 Room Air Physical examination General patient appears to be in mild distress HEENT: Atraumatic , normocephalic /no jaundice /no pallor /anicteric /no dry mucous membrane /normal external ear inspection Neck: Supple /no swelling /central trach Heart: S1/S2 normal/regular rate and rhythm/no gallop /no rub /no murmur Lungs: Bilateral decreased air entry, bilateral wheezing and scattered rhonchi. No use of accessory muscles of respiration but currently on oxygen Abdomen: Soft/nontender/no guarding/no rebound/no organomegaly/no pulsatile mass , colostomy bag Musculoskeletal: No swelling/no edema/no tenderness/normal range of motion Neuro exam: Awake alert oriented 3/cranial nerves II through XII appear to be intact/sensation intact/moves all extremities/no abnormal movements Psychiatric evaluation: No depressed mood/normal affect Skin: No rash on exposed skin area/no erythema Extremity: Normal pulse/no pitting edema/no clubbing or cyanosis Endocrine/lymphatic: No obvious lymphadenopathy /no lymphedema Diagnostics Laboratory Results Results Past 24 Hours Test 06/11/17 12:48 Range/Units White Blood Count 12.67 4.8-10.8 K/uL Red Blood Count 3.83 4.7-6.1 M/uL Hemoglobin 11.0 14.0-18.0 g/dL Hematocrit 33.7 42-52 % Mean Corpuscular Volume 88.0 80-100 fL Mean Corpuscular Hemoglobin 28.7 25-34 pg Mean Corpuscular Hemoglobin Concent 32.6 32-36 g/dl Platelet Count 455 130-400 K/uL Mean Platelet Volume 9.1 7.4-10.4 fL Neutrophils (%) (Auto) 87.9 % Lymphocytes (%) (Auto) 4.2 % Monocytes (%) (Auto) 6.6 % Eosinophils (%) (Auto) 0.7 % Basophils (%) (Auto) 0.4 % Neutrophils # (Auto) 11.13 1.4-6.5 K/uL Lymphocytes # (Auto) 0.53 1.2-3.4 K/uL Monocytes # (Auto) 0.84 0.11-0.59 K/uL Eosinophils # (Auto) 0.09 0-0.5 K/uL Basophils # (Auto) 0.05 0-0.2 K/uL RDW Standard Deviation 47.2 36.4-46.3 fL RDW Coefficient of Variation 14.7 11.5-14.5 % Immature Granulocyte % (Auto) 0.2 % Immature Granulocyte # (Auto) 0.03 0.00-0.02 K/uL Prothrombin Time 11.4 9.0-12.0 SECONDS Prothromb Time International Ratio 1.1 0.9-1.1 Activated Partial Thromboplast Time 27.5 21.0-31.0 SECONDS Partial Thromboplastin Ratio 1.1 Sodium Level 140 136-145 mmol/L Potassium Level 3.6 3.5-5.1 mmol/L Chloride Level 105 98-107 mmol/L Carbon Dioxide Level 29 21-32 mmol/L Anion Gap 6.0 3-11 mmol/L Blood Urea Nitrogen 22 7-18 mg/dl Creatinine 1.13 0.60-1.40 mg/dl Est Creatinine Clear Calc Drug Dose 43.4 ml/min Estimated GFR () 68.8 Estimated GFR (Non- 59.4 BUN/Creatinine Ratio 19.4 10-20 Random Glucose 107 70-99 mg/dl Calcium Level 9.2 8.5-10.1 mg/dl Phosphorus Level 3.5 2.5-4.9 mg/dl Magnesium Level 2.1 1.8-2.4 mg/dl Total Bilirubin 0.4 0.2-1 mg/dl Direct Bilirubin 0.1 0-0.2 mg/dl Aspartate Amino Transf (AST/SGOT) 13 15-37 U/L Alanine Aminotransferase (ALT/SGPT) 18 12-78 U/L Alkaline Phosphatase 79 45-117 U/L Total Creatine Kinase 50 39-308 U/L Troponin I < 0.015 0-0.045 ng/ml Total Protein 7.2 6.4-8.2 gm/dl Albumin 3.2 3.4-5.0 gm/dl Thyroid Stimulating Hormone (TSH) 5.610 0.300-4.500 uIu/ml Impression Assessment and Plan 82 years old man with past medical history of diverticulitis status post colectomy currently have a colostomy bag, severe COPD, hypertension, BPH and chronic kidney disease stage III. Presented to the hospital with cough, COPD exacerbation, syncope and hypoxic respiratory failure. Assessment Bibasal multifocal pneumonia, likely bacterial, community-acquired Acute respiratory failure with hypoxemia secondary to above COPD exacerbation Hypertension Chronic kidney disease stage III BPH History of parathyroid adenoma and hypercalcemia status post excision. Diverticulitis status post colectomy and colostomy bag Anemia of chronic disease Plan Admit patient to telemetry Syncope appears secondary to hypoxia plus anemia Oxygen supplement as per protocol Blood culture/sputum culture Influenza virus screen and PCR Urine legionella antigen Group a strep screen Initiate broad-spectrum antibiotics covering typical and atypical microorganisms Start patient on lactobacillus to prevent C. difficile Continue home medications IV fluid hydration as needed Monitor labs in a.m. Bronchodilators, small dose of steroids for the wheezing Monitor oxygen saturation DVT prophylaxis/heparin subcutaneous
[2017-06-11] MEDS ORDERED: MAGNESIUM HYDROXIDE SUSP 30 ML UDC PO PRN (15:45)
[2017-06-11] MEDS ORDERED: ZOLPIDEM TARTRATE 5 MG TAB PO PRN ×2 (15:45)
[2017-06-11] MEDS ORDERED: ACETAMINOPHEN 325 MG TAB PO PRN (15:45)
[2017-06-11] MEDS ORDERED: POLYETHYLENE (MIRALAX) 17 GM PACK PO PRN (15:45)
[2017-06-11] MEDS ORDERED: CALCIUM CARBONATE 500 MG CHEWABLE PO PRN (15:45)
[2017-06-11] MEDS ORDERED: ONDANSETRON INJ 2 MG/ML 2 ML VIAL IV PRN (15:45)
[2017-06-11] MEDS ORDERED: ALUMINUM/MAGNESIUM/SIMETH (MAALOX MAX) 30 ML UDC PO PRN (15:45)
[2017-06-11 16:31] VITALS: BP 154/71; PULSE 98; TEMP 36.9; O2SAT 93
[2017-06-11] MEDS ORDERED: IPRATROPIUM BROMIDE/ALBUTEROL respimat INH INH SCH (17:00)
[2017-06-11] MEDS: METHYLPREDNISOLONE IV 40 MG in SYRINGE 0 ML IV SCH ×2 (17:36→23:40)
[2017-06-11] MEDS: LACTOBACILLUS ACIDOPHILUS 1 GM PACK PO SCH (17:39)
[2017-06-11 19:28] VITALS: BP 154/71; PULSE 98; TEMP 36.9; O2SAT 95; Ht 175.3 cm; Wt 62.8 kg
[2017-06-11 19:40] LABS: INFLUENZA B ANTIGEN Neg for Influ B (NEG)
[2017-06-11] MEDS: PANTOprazole SOD 40 MG TAB PO SCH (20:44)
[2017-06-11] MEDS: GUAIFENESIN 200 MG TAB PO SCH (20:44)
[2017-06-11] MEDS: DOCUSATE SODIUM 100 MG CAP PO SCH (20:44)
[2017-06-11] MEDS: HEPARIN SOD 5000 UNIT/0.5 ML CARP SQ SCH (20:51)
[2017-06-11] MEDS ORDERED: FLUTICASONE/SALMETEROL 250/50 (ADVAIR) 14 PUFF/1 INHALER INH SCH (21:00)
[2017-06-11] MEDS ORDERED: LEVALBUTEROL/IPRATROPIUM NEB INH SCH (21:00)
[2017-06-11 23:31] VITALS: BP 145/71; PULSE 86; TEMP 36.9; O2SAT 95
[2017-06-12] VITALS (11 sets, daily range): BP systolic 130–153; BP diastolic 56–82; PULSE 79–88; TEMP 36.7–36.9; O2SAT 89–98
[2017-06-12] MEDS: LEVALBUTEROL 0.63MG/3 ML NEB INH SCH ×4 (01:40→19:35)
[2017-06-12] MEDS: IPRATROPIUM BROMIDE NEB SOLN 0.02% 2.5 ML VIAL INH SCH ×4 (01:40→19:35)
[2017-06-12 06:18] LABS: HEMATOCRIT 29.2 % (42-52); HEMOGLOBIN 9.5 g/dL (14.0-18.0); IG# 0.02 K/uL (0.00-0.02); LYMPH % 2.7 %; LYMPH ABS # 0.32 K/uL (1.2-3.4); MEAN CELL VOLUME 87.4 fL (80-100); MEAN CORPUSCULAR HEMOGLOBIN 28.4 pg (25-34); MEAN CORPUSCULAR HGB CONC 32.5 g/dl (32-36); MEAN PLATELET VOLUME 9.4 fL (7.4-10.4); MONO ABS # 0.12 K/uL (0.11-0.59); NEUT % 96.1 %; NEUT ABS # 11.53 K/uL (1.4-6.5); PLATELET COUNT 395 K/uL (130-400); RED CELL DISTRIBUTION WIDTH CV 14.4 % (11.5-14.5); RED CELL DISTRIBUTION WIDTH SD 46.6 fL (36.4-46.3); WHITE BLOOD COUNT 11.99 K/uL (4.8-10.8)
[2017-06-12 06:51] LABS: ALBUMIN 2.7 gm/dl (3.4-5.0); CALCIUM 8.5 mg/dl (8.5-10.1); CREATININE 1.19 mg/dl (0.60-1.40); POTASSIUM 4.3 mmol/L (3.5-5.1)
[2017-06-12 07:19] LABS: TOTAL PROTEIN 6.1 gm/dl (6.4-8.2)
[2017-06-12] MEDS: LACTOBACILLUS ACIDOPHILUS 1 GM PACK PO SCH ×3 (07:56→17:33)
[2017-06-12] MEDS: METHYLPREDNISOLONE IV 40 MG in SYRINGE 0 ML IV SCH ×2 (07:58→17:33)
[2017-06-12] MEDS: PANTOprazole SOD 40 MG TAB PO SCH ×2 (07:59→20:50)
[2017-06-12] MEDS: GUAIFENESIN 200 MG TAB PO SCH ×2 (07:59→20:50)
[2017-06-12] MEDS: DOCUSATE SODIUM 100 MG CAP PO SCH ×2 (07:59→20:50)
[2017-06-12] MEDS: CALCITRIOL 0.25 MCG CAP PO SCH (08:00)
[2017-06-12] MEDS: FINASTERIDE 5 MG TAB PO SCH (08:01)
[2017-06-12] MEDS: CEROVITE ADV FORMULA TAB PO SCH (08:01)
[2017-06-12] MEDS: CHOLECALCIFEROL 1000 INTER.UNIT TAB PO SCH (08:01)
[2017-06-12] MEDS: HEPARIN SOD 5000 UNIT/0.5 ML CARP SQ SCH ×2 (08:03→20:53)
[2017-06-12] MEDS ORDERED: CEROVITE ADV FORMULA TAB PO SCH (09:00)
--- NOTE | 2017-06-12 09:28 | Clinical Documentation Query ---
CLINICAL VALIDATION QUERY Dr. BECERRA, Thank you for your documentation of acute respiratory failure noted on 06/11/17 in the H/P. Due to recent R[employer] audit denials and stringent requirements passed on by our coding department, clear clinical indicators and treatment must be present. Please include the clinical support and treatment in your next progress note. Our coding department is requiring at least 2 of the indicators below or they will not code this diagnosis: Acute Respiratory Failure indicators include: * Respirations >28 or tachypnea * Air hunger * Use of accessory muscles of respiration * Inability to speak in full sentences *Cyanosis * Pulse ox <90% RA or <95% on O2 In your clinical opinion is this patient being managed for: Thank You, Latoya Obregon, RN [phone]
[2017-06-12] MEDS: AZITHROMYCIN IV 500 MG in DEXTROSE 5% 250ML 250 ML IV SCH (12:09)
[2017-06-12] MEDS ORDERED: CEFTRIAXONE SOD INJ 1 GM in DEXTROSE 5% ADD-VANTAGE 50ML 50 ML IV SCH (14:00)
--- NOTE | 2017-06-12 16:26 | Hospitalist Progress Note ---
Hospitalist Progress Note Date of Service Jun 12, 2017. Subjective Pt evaluation today including: conversation w/ patient, physical exam, chart review, lab review, review of studies, review of inpatient medication list Patient seen and evaluated. No acute events overnight. Telemetry unremarkable. Continues to have cough that is mostly non-productive. Feels that he is pretty much baseline without SOB. Rhonchi heard at L base but no wheezing. Will taper steroids Will obtain two-step tomorrow. Constitutional: No fever, No chills, No weakness, No fatigue Respiratory: + cough, No sputum, No wheezing, No shortness of breath Cardiovascular: No chest pain Abdomen: + problem reported (baseline colostomy output), No pain, No nausea , No vomiting Male : No dysuria Heme: No abnormal bleeding/bruising Medications Current Inpatient Medications Medications (Trade) Dose Ordered Sig/Andrzej Route Start Time Stop Time Status Last Admin Dose Admin Calcium Carbonate (Tums Chew Tab) 500 mg DAILY PRN PO 06/11/17 15:45 07/11/17 15:44 Docusate Sodium (coLACE CAP) 100 mg BID PO 06/11/17 21:00 07/11/17 20:59 06/12/17 07:59 100 MG Finasteride (Proscar Tab) 5 mg DAILY PO 06/12/17 09:00 07/12/17 08:59 06/12/17 08:01 5 MG Salmeterol Xinafoate/ Fluticasone (Advair Diskus 250/50 Inh) 1 puff BID INH 06/11/17 21:00 07/11/17 20:59 Future Hold Guaifenesin (Organidin Nr Tab) 200 mg BID PO 06/11/17 21:00 07/11/17 20:59 06/12/17 07:59 200 MG Albuterol/ Ipratropium (Combivent Respimat Inh) 1 puffs QID INH 06/11/17 17:00 07/11/17 16:59 Future Hold Multivitamins/ Minerals (Multivitamin W/ Minerals Tab) 1 tab DAILY PO 06/12/17 09:00 07/12/17 08:59 06/12/17 08:01 1 TAB Pantoprazole Sodium (Protonix Tab) 40 mg BID PO 06/11/17 21:00 07/11/17 20:59 06/12/17 07:59 40 MG Calcitriol (Rocaltrol Cap) 0.5 mcg DAILY PO 06/12/17 09:00 07/12/17 08:59 06/12/17 08:00 0.5 MCG Cholecalciferol (Vitamin D Tab) 2,000 inter.unit DAILY PO 06/12/17 09:00 07/12/17 08:59 06/12/17 08:01 2,000 INTER.UNIT Heparin Sodium (Porcine) (Heparin Sq 5000 Unit/0.5ml) 5,000 unit Q12 SQ 06/11/17 21:00 07/11/17 20:59 06/12/17 08:03 5,000 UNIT Acetaminophen (Tylenol Tab) 650 mg Q4H PRN PO 06/11/17 15:45 07/11/17 15:44 Al Hydrox/Mg Hydrox/Simethicone (Maalox Max Susp) 15 ml Q4H PRN PO 06/11/17 15:45 07/11/17 15:44 Magnesium Hydroxide (Milk Of Magnesia Susp) 30 ml Q12H PRN PO 06/11/17 15:45 07/11/17 15:44 Zolpidem Tartrate (Ambien Tab) 5 mg HSZ PRN PO 06/11/17 15:45 07/11/17 15:44 Zolpidem Tartrate (Ambien Tab) 5 mg HSZ PRN PO 06/11/17 15:45 07/11/17 15:44 Ondansetron HCl (Zofran Inj) 4 mg Q6H PRN IV 06/11/17 15:45 07/11/17 15:44 Polyethylene (Miralax Powder Packet) 17 gm DAILY PRN PO 06/11/17 15:45 07/11/17 15:44 Ceftriaxone Sodium 1 gm/ Dextrose 50 ml @ 100 mls/hr Q24H IV 06/12/17 14:00 06/18/17 13:59 06/12/17 14:29 100 MLS/HR Azithromycin 500 mg/Dextrose 255 ml @ 250 mls/hr Q24H IV 06/12/17 12:00 06/16/17 11:59 06/12/17 12:09 250 MLS/HR Methylprednisolone Sodium Succinate 40 mg/Syringe 0.64 ml @ 1.5 mls/min Q8H IV 06/11/17 17:00 07/11/17 16:59 06/12/17 07:58 1.5 MLS/MIN Lactobacillus Acidophilus (Lactinex Granules Pack) 1 gm TIDM PO 06/11/17 17:00 07/11/17 17:59 06/12/17 12:07 1 GM Ipratropium [place] (Atrovent 0.02% 0.5MG/2.5ML Neb) 0.5 mg Q6R INH 06/11/17 21:00 07/11/17 20:59 06/12/17 14:13 0.5 MG Levalbuterol (Xopenex 0.63 Mg/ 3 Ml Neb) 0.63 mg Q6R INH 06/11/17 21:00 07/11/17 20:59 06/12/17 14:13 0.63 MG Objective Vital Signs Date Time Temp Pulse Resp B/P (MAP) Pulse Ox O2 Delivery O2 Flow Rate FiO2 06/12/17 15:40 36.9 84 16 136/56 (82) 90 Room Air 0.0 06/12/17 14:13 86 18 91 Room Air 06/12/17 12:00 Room Air 06/12/17 11:36 90 Room Air 06/12/17 11:19 36.7 80 16 153/68 (96) 94 Nasal Cannula 1.0 06/12/17 11:19 94 Nasal Cannula 1.0 06/12/17 09:00 Nasal Cannula 2.0 06/12/17 08:00 Nasal Cannula 2.0 06/12/17 07:19 36.8 80 16 130/65 (86) 98 Nasal Cannula 2.0 06/12/17 07:05 83 18 91 Nasal Cannula 2.0 06/12/17 04:12 36.9 88 16 152/82 (105) 95 06/12/17 04:00 Nasal Cannula 2.0 06/12/17 01:40 79 18 90 Nasal Cannula 2.0 06/12/17 00:00 Nasal Cannula 2.0 06/11/17 23:31 36.9 86 18 145/71 (95) 95 Nasal Cannula 2.0 06/11/17 19:28 36.9 98 22 154/71 95 Nasal Cannula 3.0 06/11/17 16:31 36.9 98 22 154/71 (98) 93 Nasal Cannula 3.0 Physical Exam General Appearance: WD/WN, no apparent distress Eyes: sclerae normal ENT: hearing grossly normal Neck: supple, no JVD, trachea midline Respiratory/Chest: no respiratory distress, no accessory muscle use, + rhonchi (L base otherwise clear without wheezing) Cardiovascular: regular rate, rhythm Abdomen: normal bowel sounds, non tender, soft Extremities: no pedal edema Neurologic/Psychiatric: alert, oriented x 3 Skin: normal color, warm/dry Laboratory Results Last 24 Hours Test 06/11/17 17:50 06/11/17 21:00 06/12/17 05:55 06/12/17 10:44 Influenza Type A Antigen Neg for Influ A Influenza Type B Antigen Neg for Influ B Urine Color YELLOW Urine Appearance CLEAR Urine pH 5.0 Urine Specific [place] 1.021 Urine Protein NEG Urine Glucose (UA) NEG Urine Ketones TRACE Urine Occult Blood NEG Urine Nitrite NEG Urine Bilirubin NEG Urine Urobilinogen NEG Urine Leukocyte Esterase NEG White Blood Count 11.99 K/uL Red Blood Count 3.34 M/uL Hemoglobin 9.5 g/dL Hematocrit 29.2 % Mean Corpuscular Volume 87.4 fL Mean Corpuscular Hemoglobin 28.4 pg Mean Corpuscular Hemoglobin Concent 32.5 g/dl Platelet Count 395 K/uL Mean Platelet Volume 9.4 fL Neutrophils (%) (Auto) 96.1 % Lymphocytes (%) (Auto) 2.7 % Monocytes (%) (Auto) 1.0 % Eosinophils (%) (Auto) 0.0 % Basophils (%) (Auto) 0.0 % Neutrophils # (Auto) 11.53 K/uL Lymphocytes # (Auto) 0.32 K/uL Monocytes # (Auto) 0.12 K/uL Eosinophils # (Auto) 0.00 K/uL Basophils # (Auto) 0.00 K/uL RDW Standard Deviation 46.6 fL RDW Coefficient of Variation 14.4 % Immature Granulocyte % (Auto) 0.2 % Immature Granulocyte # (Auto) 0.02 K/uL Sodium Level 137 mmol/L Potassium Level 4.3 mmol/L Chloride Level 105 mmol/L Carbon Dioxide Level 25 mmol/L Anion Gap 7.0 mmol/L Blood Urea Nitrogen 25 mg/dl Creatinine 1.19 mg/dl Est Creatinine Clear Calc Drug Dose 41.6 ml/min Estimated GFR () 64.6 Estimated GFR (Non- 55.8 BUN/Creatinine Ratio 21.1 Random Glucose 139 mg/dl Calcium Level 8.5 mg/dl Magnesium Level 2.2 mg/dl Total Bilirubin 0.3 mg/dl Aspartate Amino Transf (AST/SGOT) 10 U/L Alanine Aminotransferase (ALT/SGPT) 14 U/L Alkaline Phosphatase 68 U/L Total Protein 6.1 gm/dl Albumin 2.7 gm/dl Globulin 3.4 gm/dl Albumin/Globulin Ratio 0.8 Iron Level 31 mcg/dl Total Iron Binding Capacity 204 mcg/dl Ferritin 245.6 ng/ml Vitamin B12 Level 1017 pg/mL Folate 17.64 ng/mL Test 06/12/17 13:45 Stool Occult Blood NEGATIVE Assessment and Plan 82 years old man with past medical history of diverticulitis status post colectomy currently have a colostomy bag, severe COPD, hypertension, BPH and chronic kidney disease stage III. Presented to the hospital with cough, COPD exacerbation, syncope and hypoxic respiratory failure. Syncope: RESOLVED - Telemetry reviewed and was NSR in 70-80s; May have been from illness/ dehydration - TSH is elevated but will check free T4 - given age this may be normal variant Acute Hypoxic Respiratory Failure 2/2 Multifocal CAP/COPD Exacerbation: IMPROVING - Zithromax 500 mg IV daily and Rocephin 1 g IV daily; Methylprednisolone 40 mg IV Q8H for today and convert to Prednisone 60 mg daily on 06/13 - Xopenex/Atrovent nebulizers; Advair BID - Will obtain two-step prior to D/C HTN: - Amlodipine 10 mg daily is on hold at this time CKD Stage III: STABLE - Continue to monitor and avoid nephrotoxins Anemia of Chronic Disease: - Iron and TIBC is low S/P Colectomy: STABLE - Reporting stable output DVT Prophylaxis: Heparin BID Code Status: FULL RESUSCITATION Disposition: - Possible D/C tomorrow pending clinical course Continued [facility] stay due to: multiple IV medications needed Discharge planning: home
[2017-06-13] VITALS (8 sets, daily range): BP systolic 154–170; BP diastolic 69–82; PULSE 70–82; TEMP 36.4–36.8; O2SAT 91–98
[2017-06-13] MEDS: LEVALBUTEROL 0.63MG/3 ML NEB INH SCH ×3 (01:32→14:15)
[2017-06-13] MEDS: IPRATROPIUM BROMIDE NEB SOLN 0.02% 2.5 ML VIAL INH SCH ×3 (01:32→14:15)
[2017-06-13 06:35] LABS: HEMATOCRIT 30.4 % (42-52); HEMOGLOBIN 9.8 g/dL (14.0-18.0); MEAN CELL VOLUME 87.9 fL (80-100); MEAN CORPUSCULAR HEMOGLOBIN 28.3 pg (25-34); MEAN CORPUSCULAR HGB CONC 32.2 g/dl (32-36); MEAN PLATELET VOLUME 9.6 fL (7.4-10.4); PLATELET COUNT 448 K/uL (130-400); RED CELL DISTRIBUTION WIDTH CV 14.7 % (11.5-14.5); RED CELL DISTRIBUTION WIDTH SD 47.1 fL (36.4-46.3); WHITE BLOOD COUNT 11.44 K/uL (4.8-10.8)
[2017-06-13 07:00] LABS: CREATININE 1.1 mg/dl (0.60-1.40)
[2017-06-13] MEDS: DOCUSATE SODIUM 100 MG CAP PO SCH (08:33)
[2017-06-13] MEDS: CHOLECALCIFEROL 1000 INTER.UNIT TAB PO SCH (08:33)
[2017-06-13] MEDS: CEROVITE ADV FORMULA TAB PO SCH (08:33)
[2017-06-13] MEDS: PANTOprazole SOD 40 MG TAB PO SCH (08:33)
[2017-06-13] MEDS: GUAIFENESIN 200 MG TAB PO SCH (08:34)
[2017-06-13] MEDS: FINASTERIDE 5 MG TAB PO SCH (08:34)
[2017-06-13] MEDS: LACTOBACILLUS ACIDOPHILUS 1 GM PACK PO SCH ×2 (08:34→12:23)
[2017-06-13] MEDS: CALCITRIOL 0.25 MCG CAP PO SCH (08:34)
--- NOTE | 2017-06-13 08:53 | DIAGNOSTIC IMAGING REPORT ---
CHEST 2 VIEWS ROUTINE CLINICAL HISTORY: follow up pna pneumonia COMPARISON STUDY: 06/11/2017 FINDINGS: Considerable improvement of the patient's bibasilar parenchymal infiltrative change. Moderate residual left and to a lesser extent right base. Baseline emphysematous change is unaltered. No evidence for cardiac enlargement. IMPRESSION: Improving basilar parenchymal infiltrates with moderate residual. Follow-up to complete resolution is suggested. The above report was generated using voice recognition software. It may contain grammatical, syntax or spelling errors. Electronically signed by: Jagdish Shrestha M.D. 06/13/2017 8:52 AM Dictated Date/Time: 06/13/2017 8:51 AM
[2017-06-13] MEDS: HEPARIN SOD 5000 UNIT/0.5 ML CARP SQ SCH ×2 (09:00→11:20)
[2017-06-13] MEDS ORDERED: AMLODIPINE BESYLATE 5 MG TAB PO ONE (11:30)
[2017-06-13] MEDS ORDERED: CEFDINIR 300 MG CAP PO ONE (12:23)
[2017-06-13] MEDS ORDERED: AZITHROMYCIN 250 MG TAB PO ONE (12:23)
[2017-06-13] MEDS: AZITHROMYCIN IV 500 MG in DEXTROSE 5% 250ML 250 ML IV SCH (12:26)
[2017-06-13] MEDS ORDERED: PRED10TA PO (13:43)
[2017-06-13] MEDS ORDERED: AMLO-110 PO (13:43)
[2017-06-13] MEDS ORDERED: AZIT500T3 PO (13:43)
[2017-06-13] MEDS ORDERED: CEFD300C3 PO (13:43)
--- NOTE | 2017-06-13 13:47 | Discharge Instructions ---
Discharge Instructions Date of Service Jun 13, 2017. Admission Reason for Admission: Acute Respiratory Failure With Hypoxemia Discharge Discharge Diagnosis / Problem: Syncope and Pneumonia/COPD Exacerbation Discharge Goals Goal(s): Decrease discomfort, Improve function, Increase independence Activity Recommendations Activity Limitations: resume your previous activity Driving or Machine Use: No driving until you see family doctor . Instructions / Follow-Up Instructions / Follow-Up Syncope: - This may have been from your illness or blood pressure medications. - DO NOT DRIVE UNTIL SEEING YOUR FAMILY DOCTOR WE MADE CHANGES TO YOUR BLOOD PRESSURE MEDICATIONS AND NEED TO MAKE SURE THIS IS NOT CONTRIBUTING. IF YOUR BLOOD PRESSURE GOES LOW AND YOU PASS OUT YOU CAN HARM YOURSELF, LOVED ONES, OR OTHERS - Your amlodipine was reduced to 7.5 mg daily. You had a dose today so start this tomorrow () Pneumonia and COPD Exacerbation: - You need to take Zithromax once daily on and Sunday and stop - You need to take your evening dose of Cefdinir tonight and then on 06/14 start taking this twice a day until all pills are gone - Continue your breathing treatments and inhalers - You will need to wear oxygen when at rest (2 Liters) and when walking around need to put this to 4 liters Current Hospital Diet Patient's current hospital diet: Regular Diet Discharge Diet Recommended Diet: Regular Diet Pending Studies Studies pending at discharge: no Laboratory Results Lipid Panel Test 05/22/17 14:34 Range/Units Triglycerides Level 41 0-150 mg/dl Cholesterol Level 157 0-200 mg/dl HDL Cholesterol 86 mg/dl Cholesterol/HDL Ratio 1.8 LDL Cholesterol, Calculated 63 mg/dl Medical Emergencies . Who to Call and When: Medical Emergencies: If at any time you feel your situation is an emergency, please call 911 immediately. . Non-Emergent Contact Non-Emergency issues call your: Primary Care Provider Call Non-Emergent contact if: you have a fever, your pain is concerning you, you have any medication questions . . "Provider Documentation" section prepared by Kisha Hansen. .
[2017-06-13] MEDS ORDERED: SACC250C3 PO (15:41)
--- NOTE | 2017-06-13 17:23 | Discharge Summary ---
Discharge Summary Date of Service Jun 13, 2017. Discharge Summary Admission Date: Jun 11, 2017 at 15:43 Discharge Date: Jun 13, 2017 Discharge Disposition: Home Principal Diagnosis: Syncope with Acute Hypoxic Respiratory Failure from CAP/ COPD Exacerbation Problems/Secondary Diagnoses: 1. COPD - Emphysema 2. HTN 3. CKD Stage III 4. BPH 5. Parathyroid Adenoma S/P Resection 6. Diverticulitis S/P Colectomy with Colostomy 7. Anemia of Chronic Disease - Iron Deficiency Procedures: CHEST ONE VIEW PORTABLE FINDINGS: There is severe pulmonary emphysema. There is blunting of both lateral costophrenic angle suggesting small effusions. There are bibasal airspace opacities left greater than right. The findings are viewed as suspicious for a pneumonia. Films subsequent to treatment are recommended in follow-up.[ IMPRESSION: 1. Severe emphysema 2. Trace pleural effusions 3. Bibasal airspace opacities left greater than right. The findings are suspicious for pneumonia. Radiographic follow-up is recommended Medication Reconciliation New Medications: Saccharomyces Boulardii (Florastor) 250 Mg Cap 1 TAB PO DAILY for 10 Days, #10 TAB Azithromycin (Azithromycin) 500 Mg Tab 500 MG PO DAILY for 2 Days, #2 TAB Start on 06/14. Cefdinir (Cefdinir) 300 Mg Cap 300 MG PO BID, #15 CAP Take one tablet this evening on 06/13 then resume twice a day on 06/14 Prednisone Tab (Prednisone) 10 Mg Tab 10 MG PO UD, #20 TAB Start on 06/14 taking 40 mg x 2 days then 30 mg x 2 days then 20 mg x 2 days then 10 mg x 2 days Changed Medications: Amlodipine (Norvasc) 5 Mg Tab 7.5 MG PO DAILY for 14 Days, #21 TAB (Changed from: Amlodipine (Norvasc) 10 Mg Tab 10 Mg PO DAILY) Continued Medications: Calcitriol (Calcitriol) 0.5 Mcg Cap 0.5 MCG PO DAILY Calcium Carbonate (Antacid) (Tums) 500 Mg Chw 1 TAB PO DAILY PRN for GI Upset Cholecalciferol (Vitamin D) 2,000 Unit Tab 2000 UNITS PO DAILY Docusate Sodium (Docusate Sodium) 100 Mg Cap 1 CAP PO BID, CAP Finasteride (Proscar) 5 Mg Tab 5 MG PO DAILY, TAB Fluticasone Prop/Salmeterol (Advair Diskus 250-50 Mcg/Dose) 14 Puff/1 Inhaler Aerp 1 PUFF INH BID for 14 Days Guaifenesin (Guaifenesin) 200 Mg Tab 1 TAB PO BID Ipratropium-Albuterol (Combivent Respimat) 1 Aer Aer 1 PUFFS INH QID Multiple Vitamins W/ Minerals (Centrum Adults) 1 Tab Tab 1 TAB PO DAILY Ocuvite Preservision (Ocuvite Preservision) 1 Tab Tab 1 TAB PO DAILY, TAB Pantoprazole (Pantoprazole Sodium) 40 Mg Tab 40 MG PO BID for 14 Days, #28 TAB Discharge Exam REVIEW OF SYSTEMS: General/Constitutional: Denies fever/chills, fatigue, weakness ENT: Denies nasal drainage, sore throat, trouble swallowing Cardiovascular: Denies chest pain Respiratory: + Cough; Denies sputum, SOB, wheezing GI: Denies nausea, vomiting, abdominal pain, constipation, melena/hematochezia : Denies dysuria Musculoskeletal: Denies joint/muscle aches, weakness, swelling Neurologic: Denies dizziness/lightheadedness Hematologic/Lymphatic: Denies bleeding/clotting abnormalities Skin: Denies rash PHYSICAL EXAM:: General Appearance: WDWN in NAD who is A&O x 3 and intermittently forgetful HEENT: Head is normocephalic/atraumatic; Hearing grossly intact; Mucous membranes moist; Pharynx negative for exudate/lesions Neck: Supple; Trachea midline; Neg JVD Heart: RRR with no M/G/R Lungs: Minimal rhonchi at bases; Good aeration; Respirations unlabored; Neg accessory muscle use Abdomen: Soft, non-tender, non-distended; Positive BS x 4 quadrants; Colostomy in LUQ with beefy red stoma in brown/green soft stool Extremities: Capillary refill < 2 seconds; Neg cyanosis or edema Neurological: Speech clear; Gross motor/sensory function intact; Neg focal neurologic deficits Psychiatric: Appropriate mood/affect Skin: Normal Color; Warm/Dry Hospital Course ADMISSION: 82 years old man with past medical history of diverticulitis status post colectomy currently have a colostomy bag, severe COPD, hypertension, BPH and chronic kidney disease stage III. Patient was in his regular state of health until about 2 weeks ago when some family members had an upper respiratory tract infection. Patient started coughing more than usual. Denies any sputum production. Developed progressive worsening shortness of breath. Patient is not on oxygen at home and usually his oxygen saturation is around 92. Today family wanted to take him to see his primary care physician for the shortness of breath. Patient was sitting on a chair and suddenly lost consciousness and during his fall that she had filled with him but his relative he was who was next to him was able to catch him. Patient had stiffness in his upper body that lasted few minutes until paramedics arrived. On arrival here his oxygen saturation was 88-89% which is lower than his baseline. His blood pressure was borderline low. He was brought to the ED for further evaluation and management. Denies any chest pain or palpitation but chest x-ray revealed bilateral lower density in her lungs. HOSPITAL COURSE: Mr. Kumari was admitted for a syncopal episode and acute hypoxic respiratory failure from pneumonia and COPD exacerbation. Syncope may have been the result of his illness versus dehydration versus low blood pressure. Patient was noted to have hypotension after episode however this may have been physiological from syncope. While on monitor no arrhythmias noted and he remained in NSR at rates of 70-80. In regards to blood pressure, his amlodipine was reduced to 7.5 mg daily. X-ray revealed bibasilar opacities with follow-up x-ray showing some improvement. For his pneumonia he will continue on Zithromax 2 days and Cefdinir 300 mg BID 7 more days. He will also complete a prednisone taper. Prior to discharge, two-step reveals the need for oxygen at 2 L at rest and 4 L with activity. DISPOSITION: Granddaughter Coco approached me outside of patient's room wanting to discuss the patient driving. She reports that he is forgetful and suspects he has underlying dementia. She states that he currently drives and is concerned that he may forget where he is going. She also feels that due to progressive visual issues his driving is not safe. He is reluctant to give up his driving. On previous accounts when taking care of his in the hospital , she has reported similar concerns. Patient overall is a good historian and appears competent to make decisions however does exhibit some signs of forgetfulness. Given syncope, it may be reasonable alone to pursue further evaluation of his driving abilities. However the syncope could have been related to acute illness versus blood pressure medication. Clinically, I do not have enough evidence to completely confirm that he is unsafe to drive however this may not be an unreasonable measure to pursue. I did instruct the patient to not drive at this time while adjusting his blood pressure medication as this may have possibly related to the syncope. Total Time Spent: Greater than 30 minutes This includes examination of the patient, discharge planning, medication reconciliation, and communication with other providers. Discharge Instructions Please refer to the electronic Patient Visit Report (Discharge Instructions) for additional information. Additional Copies To Mateus Boyd M.D.
[2017-06-13] MEDS ORDERED: CEFDINIR 300 MG CAP PO SCH (21:00)
[2017-06-14] MEDS ORDERED: AMLODIPINE BESYLATE 5 MG TAB PO SCH (09:00)
[2017-06-14] MEDS ORDERED: AZITHROMYCIN 250 MG TAB PO SCH (09:00)
--- NOTE | 2017-06-14 13:16 | EDITING REQUIRED CODING QUERY ---
CODING QUERY To promote full compliance with coding requirements relating to patient care, provider participation is requested in all cases of ore mixer uncertainty. Please assist us with the question(s) below: Coding Question(s): There is documentation in the record and Discharge Summary of Acute Hypoxic Respiratory Failure and the addendum on the Discharge Summary documents Acute Hypoxic Respiratory Distress. Please clarify below, in your clinical opinion. ( ) Acute Hypoxic Respiratory Failure (x ) Acute Hypoxic Respiratory Distress Physician's Response(s): Thank you Galilea Morales Principal Diagnosis: "_that condition established after study, to be chiefly responsible for occasioning the admission of the patient to the hospital for care." Co-Existing Principal Diagnosis: "_when two or more diagnoses equally meet the criteria for principal diagnosis as determined by the circumstances of admission, diagnostic work up, and/or therapy provided, and the Alphabetic Index, Tabular List, or another coding guideline does not provide sequencing direction, any one of the diagnoses may be sequenced first." "When the physician has documented what appears to be a current diagnosis in the body of the record, but has not included the diagnosis in the final diagnostic statement, the physician should be asked whether the diagnosis should be added." (Source Coding [facility] 2 QTR90. p3-4)
== END 2017-06-13 15:40 | disposition home or self-care (01) | DRG 190 ==
LOC: C.EDB 11:50 → C.MED 15:43 → ENRESERV 15:54
PROVIDERS: ADMIT Internal Medicine; ATTEND Hospitalist
DX: J44.0 Chronic obstructive pulmonary disease with (acute) lower respiratory infection (principal); J18.9 Pneumonia, unspecified organism; R55 Syncope and collapse; R09.02 Hypoxemia; R06.09 Other forms of dyspnea; E86.0 Dehydration; I95.9 Hypotension, unspecified; N18.3 Chronic kidney disease, stage 3 (moderate); I12.9 Hypertensive chronic kidney disease with stage 1 through stage 4 chronic kidney disease, or unspecified chronic kidney disease; D50.9 Iron deficiency anemia, unspecified; N40.0 Benign prostatic hyperplasia without lower urinary tract symptoms; Z51.81 Encounter for therapeutic drug level monitoring; Z79.899 Other long term (current) drug therapy; Z87.19 Personal history of other diseases of the digestive system; Z93.3 Colostomy status; Z82.49 Family history of ischemic heart disease and other diseases of the circulatory system

== ENCOUNTER → 2017-06-21 | Outpatient (CLI) | payer OTHER ==
[~2017-06-21] MED LIST changes: -ACET-1047 PO; +AMLO-110 PO; +AZIT500T3 PO; +CALC0.5C PO; +CALC500C3 PO; +CEFD300C3 PO; +CHOL20009 PO; -CINA60TA PO; +GUAI1TAB7 PO; -GUAI400T29 PO; +IPRA1AER2 INH; -IPRASOL4 INH; -LCTX PO; -LSXL IV; -MRLP17X PO; -NUTR-977 PO; +PRED10TA PO; +SACC250C3 PO; -TAMS0.4C38 PO; -URC10 PO
--- NOTE | 2017-06-21 11:50 | DIAGNOSTIC IMAGING REPORT ---
AORTIC ANEURYSM RETROPERI CLINICAL HISTORY: Abdominal aortic aneurysm COMPARISON STUDY: CT scan performed October 2016 FINDINGS: The proximal aorta measured 20 x 23 mm. The mid abdominal aorta measured 3.4 x 3.2 cm. There is a suspected focal dissection flap present. The distal abdominal aorta measured 15 x 12 mm. The right iliac measures 13 x 13 mm. The left iliac measured 15 x 12 mm. 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 There is a focal dissection flap present at this level Electronically signed by: Tom Luong M.D. 06/21/2017 11:49 AM Dictated Date/Time: 06/21/2017 11:46 AM
== END | disposition home or self-care (01) ==
LOC: C.ULTR 11:00
PROVIDERS: ATTEND Internal Medicine
DX: I71.4 Abdominal aortic aneurysm, without rupture (principal)

== ENCOUNTER → 2017-06-21 | Outpatient (CLI) | payer OTHER ==
[2017-06-21 18:25] LABS: ALBUMIN 3.1 gm/dl (3.4-5.0); CALCIUM 9.6 mg/dl (8.5-10.1)
== END | disposition home or self-care (01) ==
LOC: C.LABBFT 15:29
PROVIDERS: ATTEND Internal Medicine Endocrinology, Diabetes & Metabolism
DX: E88.09 Other disorders of plasma-protein metabolism, not elsewhere classified (principal); E83.51 Hypocalcemia

== ENCOUNTER → 2017-06-22 | Day surgery (SDC) | payer OTHER | END | disposition home or self-care (01) | LOC: C.ACU 14:02 | PROVIDERS: ATTEND Internal Medicine | DX: L90.9 Atrophic disorder of skin, unspecified (principal); J44.9 Chronic obstructive pulmonary disease, unspecified; D64.9 Anemia, unspecified; E88.09 Other disorders of plasma-protein metabolism, not elsewhere classified; I71.4 Abdominal aortic aneurysm, without rupture; I10 Essential (primary) hypertension; J18.9 Pneumonia, unspecified organism; K21.9 Gastro-esophageal reflux disease without esophagitis; M19.90 Unspecified osteoarthritis, unspecified site; N40.1 Benign prostatic hyperplasia with lower urinary tract symptoms; F32.9 Major depressive disorder, single episode, unspecified; E55.9 Vitamin D deficiency, unspecified; Z82.49 Family history of ischemic heart disease and other diseases of the circulatory system; Z88.5 Allergy status to narcotic agent ==

== ENCOUNTER → 2017-07-27 | Outpatient (CLI) | payer OTHER ==
[~2017-07-27] MED LIST changes: -AMLO-110 PO
--- NOTE | 2017-07-27 12:48 | DIAGNOSTIC IMAGING REPORT ---
CT OF THE CHEST WITHOUT IV CONTRAST CLINICAL HISTORY: Chronic obstructive pulmonary disease. COMPARISON STUDY: Chest CT November 17, 2016 and chest radiograph June 13, 2017. CT DOSE: 287.43 mGycm TECHNIQUE: Axial images of the chest were obtained without IV contrast. Images were reviewed in the axial, sagittal, and coronal planes. IV contrast was not administered for this examination. A dose lowering technique was utilized adhering to the principles of ALARA. FINDINGS: No enlarged axillary, mediastinal or hilar lymph nodes are present. The size of the heart is normal. Note is made of moderate coronary artery calcification. There is no pneumothorax. There is trace bilateral pleural fluid. Severe emphysema is noted. Right middle lobe subsegmental atelectasis is noted. Mild bilateral lower lobe airspace opacities are noted, including tree-in-bud nodules. Airspace opacity shown on exam of June 11, 2017 have significantly improved. There is no cavitation. No suspicious osseous lesions are present. Calcified granulomas within the spleen are noted. A suspected cyst within the upper pole of the left kidney is noted as well as several hepatic cysts. An infrarenal abdominal aortic aneurysm is partially imaged on this exam. IMPRESSION: 1. Mild bilateral lower lobe airspace opacities, markedly improved since exam of June 11, 2017. The findings suggest near complete resolution of pneumonia. A follow-up chest CT in 3 months to ensure complete resolution is recommended. 2. Severe emphysema. 3. Evidence for a previous granulomatous process. Electronically signed by: Law Galan M.D. 07/27/2017 12:47 PM Dictated Date/Time: 07/27/2017 12:38 PM
== END | disposition home or self-care (01) ==
LOC: C.CTS 11:59
PROVIDERS: ATTEND Internal Medicine Pulmonary Disease
DX: J44.9 Chronic obstructive pulmonary disease, unspecified (principal); J43.9 Emphysema, unspecified

== ENCOUNTER → 2017-08-06 | Outpatient (CLI) | payer OTHER ==
[2017-08-06 17:24] LABS: BASO % 1.4 %; BASO ABS # 0.08 K/uL (0-0.2); EOS % 3.6 %; EOS ABS # 0.21 K/uL (0-0.5); HEMATOCRIT 35.9 % (42-52); HEMOGLOBIN 11.4 g/dL (14.0-18.0); IG# 0.01 K/uL (0.00-0.02); LYMPH % 17.5 %; LYMPH ABS # 1.03 K/uL (1.2-3.4); MEAN CELL VOLUME 91.8 fL (80-100); MEAN CORPUSCULAR HEMOGLOBIN 29.2 pg (25-34); MEAN CORPUSCULAR HGB CONC 31.8 g/dl (32-36); MEAN PLATELET VOLUME 10.5 fL (7.4-10.4); MONO % 9.5 %; MONO ABS # 0.56 K/uL (0.11-0.59); NEUT % 67.8 %; PLATELET COUNT 213 K/uL (130-400); RED CELL DISTRIBUTION WIDTH CV 15.8 % (11.5-14.5); RED CELL DISTRIBUTION WIDTH SD 52.9 fL (36.4-46.3); RETIC COUNT % 0.6 % (0.5-2.0); WHITE BLOOD COUNT 5.89 K/uL (4.8-10.8)
== END | disposition home or self-care (01) ==
LOC: C.LABBFT 14:13
PROVIDERS: ATTEND Internal Medicine
DX: I10 Essential (primary) hypertension (principal); D64.9 Anemia, unspecified; R63.4 Abnormal weight loss; E55.9 Vitamin D deficiency, unspecified; Z86.39 Personal history of other endocrine, nutritional and metabolic disease; J44.9 Chronic obstructive pulmonary disease, unspecified; R94.6 Abnormal results of thyroid function studies

== ENCOUNTER 2018-04-23 17:32 | Inpatient (IN) ==
[2018-04-23] MEDS ORDERED: ALBUT/IPRATROP 3MG/0.5MG NEB 3 ML VIAL NEB STA ×2 (17:57→20:14)
[2018-04-23] MEDS ORDERED: ACETAMINOPHEN 500 MG TAB PO STA (18:04)
--- NOTE | 2018-04-23 18:04 | Emergency Department Note ---
Entered by Suni Gaviria acting as a scribe for Sanket Gonzalez DO History of Present Illness General Chief complaint: Congestion Stated complaint: GURGLING IN CHEST, COUGH, FEVER Time Seen by Provider: 04/23/18 17:50 Source: patient and family Mode of arrival: ambulatory Limitations: no limitations History of Present Illness Provider complaint: cough Onset (ago): day(s) (3 or 4) Location: chest Pain Consistency: + other (persistent) Quality: + other (cough) Associated symptoms: + fever/chills and + other (Denies: chest pain, pain or swelling in legs, abdominal pain. ) The patient is an 83 year old male who presents to the Emergency Room with complaints of persistent cough beginning 3 or 4 days ago. His son notes the patient has had a "gurgly" productive cough. The son notes the patient had a fever today. He sees Dr. Boyd as his PCP, and was referred to the ED when his family called the office today. The patient denies chest pain, pain or swelling in legs, or abdominal pain. He uses two different inhalers, and is not currently taking any antibiotics or steroids. The patient wears 2L oxygen at all times, 4L when moving around. He denies a history of ruptured lung. Home Medications Home Medications Medication Instructions Recorded Confirmed Type C,E,zinc,copper [id number] 1 cap PO DAILY 04/23/18 04/23/18 History [Ocuvite Adult 50 Plus] Saccharomyces boulardii [Florastor] 250 mg PO DAILY 04/23/18 04/23/18 History amlodipine 10 mg PO DAILY 04/23/18 04/23/18 History calcitriol 0.5 mcg PO DAILY 04/23/18 04/23/18 History calcium carbonate [Tums] 200 mg PO DIRECTED PRN 04/23/18 04/23/18 History cholecalciferol (vitamin D3) 2,000 units PO DAILY 04/23/18 04/23/18 History [Vitamin D3] docusate sodium 200 mg PO BID 04/23/18 04/23/18 History ferrous sulfate [iron] 325 mg PO TID 04/23/18 04/23/18 History finasteride 5 mg PO DAILY 04/23/18 04/23/18 History fluticasone-salmeterol [Advair 1 inh INHALATION BID 04/23/18 04/23/18 History Diskus] guaifenesin 200 mg PO BID 04/23/18 04/23/18 History ipratropium-albuterol [Combivent 1 puff INHALATION QID 04/23/18 04/23/18 History Respimat] xufpdzij-gff-AI-lycopen-lutein 1 tab PO DAILY 04/23/18 04/23/18 History [Centrum Silver] pantoprazole 40 mg PO BID 04/23/18 04/23/18 History tamsulosin 0.4 mg PO DAILY 04/23/18 04/23/18 History Allergies Allergy/AdvReac Type Severity Reaction Status Date / Time morphine AdvReac Severe Agitated Verified 04/23/18 19:30 Past Med/Surg History Medical History Hypertension Pneumoperitoneum Hyperparathyroidism (Chronic) COPD (chronic obstructive pulmonary disease) (Chronic) Colostomy complication (Inactive) Surgical History History of colon resection Family History Other No pertinent family history Social History marital status: Current Living Situation: Family current occupational status: retired Feels Safe at Home: Yes Smoking Status: Former smoker Preferred Language: [place] Communication Ability: Effective Hearing Ability: Hard of Hearing Review of Systems See HPI for pertinent positives & negatives. and A total of 10 systems reviewed and were otherwise negative Physical Exam Vital Signs Vital Signs - 24 hr 04/23/18 17:44 04/23/18 18:45 04/23/18 18:53 Temperature 39.3 C H Temperature Source Oral Sepsis Recent Fever Within 48 Hours Yes Sepsis Action Taken by Nursing Physician Notified Pulse Rate 92 H 92 H Pulse Rate [Apical] 88 Pulse Rhythm [Apical] Pulse Strength [Apical] Respiratory Rate 26 H 26 H 26 H Respiratory Effort / Characteristics Respiratory Depth Respiratory Pattern Blood Pressure 133/88 Blood Pressure [Right Arm] 134/64 Blood Pressure Mean 103 Blood Pressure Mean [Right Arm] 87 Blood Pressure Position Sitting Blood Pressure Position [Right Arm] Pulse Oximetry 95 95 97 Oxygen Delivery Method Nasal Cannula Nasal Cannula Nasal Cannula Oxygen Flow Rate 3 3 2 04/23/18 19:26 04/23/18 20:22 04/23/18 21:27 Temperature Temperature Source Sepsis Recent Fever Within 48 Hours Sepsis Action Taken by Nursing Pulse Rate Pulse Rate [Apical] 84 84 Pulse Rhythm [Apical] Regular Regular Regular Pulse Strength [Apical] Normal Normal Normal Respiratory Rate 21 20 20 Respiratory Effort / Characteristics Spontaneous Non-Labored Spontaneous Non-Labored Spontaneous Respiratory Depth Normal Normal Normal Respiratory Pattern Regular Regular Regular Blood Pressure Blood Pressure [Right Arm] 126/60 111/58 L 115/60 Blood Pressure Mean Blood Pressure Mean [Right Arm] 82 75 78 Blood Pressure Position Blood Pressure Position [Right Arm] Sitting Sitting Lying Pulse Oximetry 96 95 98 Oxygen Delivery Method Nasal Cannula Room Air Room Air Oxygen Flow Rate GENERAL: Patient is awake alert in no acute distress patient is resting comfortably and showing no signs of anxiety EYES: The conjunctivae are clear. The pupils are round and reactive. EARS, NOSE, MOUTH AND THROAT: The nose is without any evidence of any deformity. Mucous membranes are moist tongue is midline NECK: The neck is nontender and supple. RESPIRATORY: Diminished breath sounds were noted in the left lung field. There were scattered rhonchi noted throughout. Mild expiratory wheezing was noted. There was mild tachypnea and conversational dyspnea appreciated. CARDIOVASCULAR: Regular rate and rhythm noted there no murmurs rubs or gallops normal S1 normal S2 GASTROINTESTINAL: The abdomen is soft. Bowel sounds are present in all quadrants. Abdomen is nontender MUSCULOSKELETAL/EXTREMITIES: There is no evidence of gross deformity full range of motion is noted in the hips and shoulders SKIN: There is no obvious evidence of any rash. Trace pedal edema was noted bilaterally. NEUROLOGIC: Patient is awake alert and oriented x3. Course 1754: Past medical records reviewed. The patient was evaluated in room B7, and a complete history and physical examination were performed. 2017: I reviewed the patient's case with Dr. Ham [facility] hospitalist. He will evaluate the patient for further management. 2020: Upon reevaluation, the patient is resting. I discussed test results. They verbalized agreement with the treatment plan. Consultations Consultation #1: I reviewed the patient's case with Dr. Ham [facility] hospitalist. He will evaluate the patient for further management. Time: 20:17 Administered Medications Discontinued Medications Acetaminophen (Tylenol) 1,000 mg PO NOW STA Stop: 04/23/18 18:05 Last Admin: 04/23/18 18:36 Dose: 1,000 mg Albuterol (Duoneb) 3 ml NEB NOW STA Stop: 04/23/18 17:58 Last Admin: 04/23/18 18:36 Dose: 3 ml Albuterol (Duoneb) 3 ml NEB NOW STA Stop: 04/23/18 20:15 Last Admin: 04/23/18 20:21 Dose: 3 ml Levofloxacin/Dextrose (Levaquin/D5w) 750 mg in 150 mls @ 100 mls/hr IV NOW STA Stop: 04/23/18 19:56 Last Infusion: 04/23/18 20:21 Dose: 0 mls/hr Admin: 04/23/18 18:52 Dose: 100 mls/hr Sodium Chloride (Nss 1000ml) 1,000 mls @ 999 mls/hr IV .Q1H1M ONE Stop: 04/23/18 21:14 Last Admin: 04/23/18 20:21 Dose: 999 mls/hr Medical Decision Making Differential Diagnosis Etiologies such as infections, reactive airway disease, COPD, pneumonia, pleural effusion, pulmonary edema, ARDS, pneumothorax, CHF, cardiac ischemia, cardiac tamponade, dysrhythmia, anemia, pulmonary embolism, musculoskeletal, gastrointestinal process, as well as others were entertained. Medical Records Attestation: I reviewed the patient's medical records. Home Medications Current Medication List: was personally reviewed by me Laboratory Data Attestation: I reviewed the patient's lab results. Result diagrams: 04/23/18 18:32 04/23/18 18:32 Lab Results 04/23/18 04/23/18 04/23/18 Range/Units 18:23 18:32 18:32 WBC 17.75 H (4.8-10.8) K/uL RBC 3.70 L (4.7-6.1) M/uL Hgb 11.2 L (14.0-18.0) g/dL Hct 34.2 L (42-52) % MCV 92.4 (80-100) fL MCH 30.3 (25-34) pg MCHC 32.7 (32-36) g/dL RDW Std Deviation 48.2 H (36.4-46.3) fL RDW Coeff of Syl 14.2 (11.5-14.5) % Plt Count 234 (130-400) K/uL MPV 10.2 (7.4-10.4) fL Immature Gran % (Auto) 0.2 % Neut % (Auto) 88.0 % Lymph % (Auto) 2.5 % Polk % (Auto) 9.0 % Eos % (Auto) 0.1 % Baso % (Auto) 0.2 % Immature Gran # (Auto) 0.04 H (0.00-0.02) K/uL Neut # (Auto) 15.62 H (1.4-6.5) K/uL Lymph # (Auto) 0.45 L (1.2-3.4) K/uL Polk # (Auto) 1.60 H (0.11-0.59) K/uL Eos # (Auto) 0.01 (0-0.5) K/uL Baso # (Auto) 0.03 (0-0.2) K/uL ESR (0-14) mm/hr PT 11.2 (9.0-12.0) Seconds INR 1.1 (0.9-1.1) APTT 30.6 (21.0-31.0) Seconds PTT Ratio 1.2 VBG pH (7.36-7.41) VBG pCO2 (38-50) mmHg VBG pO2 mmHg VBG HCO3 mmol/L VBG O2 Saturation % VBG Base Excess mEq/L Barometric Pressure mm/Hg Sodium (136-145) mmol/L Potassium (3.5-5.1) mmol/L Chloride (98-107) mmol/L Carbon Dioxide (21-32) mmol/L Anion Gap (3-11) BUN (7-18) mg/dl Creatinine (0.6-1.4) mg/dl Est Cr Clr Drug Dosing ml/min Est GFR ( Amer) Est GFR (Non-Af Amer) BUN/Creatinine Ratio (10-20) Glucose (70-99) mg/dl Lactate (0.4-2.0) mmol/L Calcium (8.5-10.1) mg/dl Magnesium (1.8-2.4) mg/dl Total Bilirubin (0.2-1) mg/dl AST (15-37) U/L ALT (12-78) U/L Alkaline Phosphatase (45-117) U/L Troponin I (0-0.045) ng/ml C-Reactive Protein (0-0.29) mg/dl Total Protein (6.4-8.2) gm/dl Albumin (3.4-5.0) gm/dl Globulin (2.5-4.0) gm/dl Albumin/Globulin Ratio (0.9-2) Influenza Type A (PCR) Neg for Influ A (Neg) Influenza Type B (PCR) Neg for Influ B (Neg) 04/23/18 04/23/18 04/23/18 Range/Units 18:32 18:32 18:32 WBC (4.8-10.8) K/uL RBC (4.7-6.1) M/uL Hgb (14.0-18.0) g/dL Hct (42-52) % MCV (80-100) fL MCH (25-34) pg MCHC (32-36) g/dL RDW Std Deviation (36.4-46.3) fL RDW Coeff of Syl (11.5-14.5) % Plt Count (130-400) K/uL MPV (7.4-10.4) fL Immature Gran % (Auto) % Neut % (Auto) % Lymph % (Auto) % Polk % (Auto) % Eos % (Auto) % Baso % (Auto) % Immature Gran # (Auto) (0.00-0.02) K/uL Neut # (Auto) (1.4-6.5) K/uL Lymph # (Auto) (1.2-3.4) K/uL Polk # (Auto) (0.11-0.59) K/uL Eos # (Auto) (0-0.5) K/uL Baso # (Auto) (0-0.2) K/uL ESR 48 H (0-14) mm/hr PT (9.0-12.0) Seconds INR (0.9-1.1) APTT (21.0-31.0) Seconds PTT Ratio VBG pH (7.36-7.41) VBG pCO2 (38-50) mmHg VBG pO2 mmHg VBG HCO3 mmol/L VBG O2 Saturation % VBG Base Excess mEq/L Barometric Pressure mm/Hg Sodium 137 (136-145) mmol/L Potassium 4.0 (3.5-5.1) mmol/L Chloride 104 (98-107) mmol/L Carbon Dioxide 29 (21-32) mmol/L Anion Gap 4.0 (3-11) BUN 20 H (7-18) mg/dl Creatinine 1.12 (0.6-1.4) mg/dl Est Cr Clr Drug Dosing 46.9 ml/min Est GFR ( Amer) 69.1 Est GFR (Non-Af Amer) 59.6 BUN/Creatinine Ratio 17.7 (10-20) Glucose 118 H (70-99) mg/dl Lactate (0.4-2.0) mmol/L Calcium 9.2 (8.5-10.1) mg/dl Magnesium 1.9 Cancelled (1.8-2.4) mg/dl Total Bilirubin 0.6 (0.2-1) mg/dl AST 8 L (15-37) U/L ALT 17 (12-78) U/L Alkaline Phosphatase 84 (45-117) U/L Troponin I < 0.015 Cancelled (0-0.045) ng/ml C-Reactive Protein 13.50 H Cancelled (0-0.29) mg/dl Total Protein 6.9 (6.4-8.2) gm/dl Albumin 3.5 (3.4-5.0) gm/dl Globulin 3.4 (2.5-4.0) gm/dl Albumin/Globulin Ratio 1.0 (0.9-2) Influenza Type A (PCR) (Neg) Influenza Type B (PCR) (Neg) 04/23/18 04/23/18 Range/Units 18:49 18:50 WBC (4.8-10.8) K/uL RBC (4.7-6.1) M/uL Hgb (14.0-18.0) g/dL Hct (42-52) % MCV (80-100) fL MCH (25-34) pg MCHC (32-36) g/dL RDW Std Deviation (36.4-46.3) fL RDW Coeff of Syl (11.5-14.5) % Plt Count (130-400) K/uL MPV (7.4-10.4) fL Immature Gran % (Auto) % Neut % (Auto) % Lymph % (Auto) % Polk % (Auto) % Eos % (Auto) % Baso % (Auto) % Immature Gran # (Auto) (0.00-0.02) K/uL Neut # (Auto) (1.4-6.5) K/uL Lymph # (Auto) (1.2-3.4) K/uL Polk # (Auto) (0.11-0.59) K/uL Eos # (Auto) (0-0.5) K/uL Baso # (Auto) (0-0.2) K/uL ESR (0-14) mm/hr PT (9.0-12.0) Seconds INR (0.9-1.1) APTT (21.0-31.0) Seconds PTT Ratio VBG pH 7.47 H (7.36-7.41) VBG pCO2 38 (38-50) mmHg VBG pO2 50 mmHg VBG HCO3 27 mmol/L VBG O2 Saturation 85.6 % VBG Base Excess 2.9 mEq/L Barometric Pressure 722.3 mm/Hg Sodium (136-145) mmol/L Potassium (3.5-5.1) mmol/L Chloride (98-107) mmol/L Carbon Dioxide (21-32) mmol/L Anion Gap (3-11) BUN (7-18) mg/dl Creatinine (0.6-1.4) mg/dl Est Cr Clr Drug Dosing ml/min Est GFR ( Amer) Est GFR (Non-Af Amer) BUN/Creatinine Ratio (10-20) Glucose (70-99) mg/dl Lactate 1.1 (0.4-2.0) mmol/L Calcium (8.5-10.1) mg/dl Magnesium (1.8-2.4) mg/dl Total Bilirubin (0.2-1) mg/dl AST (15-37) U/L ALT (12-78) U/L Alkaline Phosphatase (45-117) U/L Troponin I (0-0.045) ng/ml C-Reactive Protein (0-0.29) mg/dl Total Protein (6.4-8.2) gm/dl Albumin (3.4-5.0) gm/dl Globulin (2.5-4.0) gm/dl Albumin/Globulin Ratio (0.9-2) Influenza Type A (PCR) (Neg) Influenza Type B (PCR) (Neg) Imaging Data Radiologist's Impression: Radiology results as stated below per my review and the radiologist's interpretation: SINGLE VIEW CHEST CLINICAL HISTORY: Sepsis. FINDINGS: 2 AP, portable, upright chest radiographs are compared to study dated 06/11/2017 and correlated with chest CT dated 07/27/2017. The cardiomediastinal silhouette is unremarkable, noting atherosclerotic calcification of the thoracic aorta. Enlargement of the central pulmonary arteries suggests pulmonary artery hypertension. Advanced emphysematous change is noted and there is chronic interstitial thickening. Bullous change is seen at the apices. There is patchy airspace consolidation at the right lung base with a trace right pleural effusion. A calcified granuloma is noted in the left upper lobe. No pneumothorax is seen. The skeletal structures are osteopenic. The bony thorax is grossly intact. Degenerative change is noted in the thoracic spine. Calcified granulomas are noted in the spleen. IMPRESSION: 1. There is patchy airspace consolidation at the right lung base and a trace right pleural effusion. The appearance is consistent with pneumonia/aspiration pneumonitis. Radiographic follow-up to resolution is recommended. 2. Advanced emphysema. Electronically signed by: Jed Guidry M.D. 04/23/2018 6:22 PM ECG Data Attestation: I personally reviewed and interpreted this ECG as follows: Indication: SOB/dyspnea Rate (beats per minute): 84 Rhythm: normal sinus Findings: no PAC, no PVC, no ST depression and no ST elevation Comparison ECG Date: from (06/11/17) Change: no significant change Blood Pressure Blood Pressure Findings: Normal blood pressure Blood Pressure Disposition: did not require urgent referral MDM Narrative The patient is an 83-year-old male who has a history of COPD who presented to the emergency department for an evaluation of shortness of breath. The patient appeared to have a history and physical exam consistent with pneumonia. He had asymmetric lung sounds. He also had a fever. The patient was started on IV antibiotics. The patient was also given IV fluids as well as DuoNeb therapy. On subsequent reevaluation he seemed to be somewhat improved. I discussed the patient's laboratory and radiographic studies with him and his family. The patient initially requested to be discharged although at this time he does appear to have significant findings I do feel he would benefit from inpatient therapy. For this reason I did discuss his case with the on-call [facility] hospitalist group. They have agreed to evaluate the patient in the emergency department for further management and disposition. Impression & Plan Pneumonia, Fever, Respiratory distress Discharge Plan Visit Data Chief Complaint: Congestion Stated Complaint: GURGLING IN CHEST, COUGH, FEVER ED Provider: Sanket Gonzalez Discharge Problem: Pneumonia, Fever, Respiratory distress Patient Disposition: Being Evaluated by Hospitalist Forms Stand Alone Forms: My [facility] Prescriptions Prescriptions: No Action fluticasone-salmeterol [Advair Diskus] 250-50 mcg/dose Blister With Device 1 inh INHALATION BID RF: 0 guaifenesin 200 mg Tablet 200 mg PO BID RF: 0 tamsulosin 0.4 mg Capsule 0.4 mg PO DAILY RF: 0 amlodipine 10 mg Tablet 10 mg PO DAILY RF: 0 pantoprazole 40 mg Tablet,Delayed Release (Dr/Ec) 40 mg PO BID RF: 0 ferrous sulfate [iron] 325 mg (65 mg iron) Tablet 325 mg PO TID RF: 0 calcitriol 0.5 mcg Capsule 0.5 mcg PO DAILY RF: 0 calcium carbonate [Tums] 200 mg calcium (500 mg) Tablet,Chewable 200 mg PO DIRECTED PRN (Reason: Indigestion) RF: 0 docusate sodium 100 mg Capsule 200 mg PO BID RF: 0 finasteride 5 mg Tablet 5 mg PO DAILY RF: 0 Saccharomyces boulardii [Florastor] 250 mg Capsule 250 mg PO DAILY RF: 0 yqzrhxtg-uuk-KD-lycopen-lutein [Centrum Silver] 0.4-300-250 mg-mcg-mcg Tablet 1 tab PO DAILY RF: 0 cholecalciferol (vitamin D3) [Vitamin D3] 2,000 unit Capsule 2,000 units PO DAILY RF: 0 C,E,zinc,copper [id number] [Ocuvite Adult 50 Plus] 250-5-1 mg Capsule 1 cap PO DAILY RF: 0 ipratropium-albuterol [Combivent Respimat] 20-100 mcg/actuation Mist 1 puff INHALATION QID RF: 0 Referrals Referrals: Pablo Boyd MD [Primary Care Provider] - The ruizibe's documentation has been prepared under my direction and personally reviewed by me in its entirety. I confirm that the note above accurately reflects all work, treatment, procedures, and medical decision making performed by me.
--- NOTE | 2018-04-23 18:23 | XRay Report ---
SINGLE VIEW CHEST CLINICAL HISTORY: Sepsis. FINDINGS: 2 AP, portable, upright chest radiographs are compared to study dated 06/11/2017 and correla gonzález with chest CT dated 07/27/2017. The cardiomediastinal silhouette is unremarkable, noting atheroscl erotic calcification of the thoracic aorta. Enlargement of the central pulmonary arteries suggests pu lmonary artery hypertension. Advanced emphysematous change is noted and there is chronic interstitial thickening. Bullous change is seen at the apices. There is patchy airspace consolidation at the righ t lung base with a trace right pleural effusion. A calcified granuloma is noted in the left upper lob e. No pneumothorax is seen. The skeletal structures are osteopenic. The bony thorax is grossly intact . Degenerative change is noted in the thoracic spine. Calcified granulomas are noted in the spleen. IMPRESSION: 1. There is patchy airspace consolidation at the right lung base and a trace right pleural effusion. The appearance is consistent with pneumonia/aspiration pneumonitis. Radiographic follow-up to [facility] [place] is recommended. 2. Advanced emphysema. Electronically signed by: Jed Guidry M.D. 04/23/2018 6:22 PM
[2018-04-23] MEDS ORDERED: LEVOFLOXACIN/D5W 750 MG/150 ML BAG IV STA (18:27)
[2018-04-23 18:52] LABS: Basophils # (auto) 0.03 K/uL (0-0.2); Basophils % (auto) 0.2 %; Eosinophils # (auto) 0.01 K/uL (0-0.5); Eosinophils % (auto) 0.1 %; Hematocrit (blood only) 34.2 % (42-52); Hemoglobin 11.2 g/dL (14.0-18.0); Immature Granulocytes # (auto) 0.04 K/uL (0.00-0.02); Immature Granulocytes % (auto) 0.2 %; Lymphocytes # (auto) 0.45 K/uL (1.2-3.4); Lymphocytes % (auto) 2.5 %; Mean Corpuscular Hgb Conc 32.7 g/dL (32-36); Mean Corpuscular Volume 92.4 fL (80-100); Mean Platelet Volume 10.2 fL (7.4-10.4); Neutrophils # (auto) 15.62 K/uL (1.4-6.5); Platelet Count 234 K/uL (130-400); RDW Coefficient of Variation 14.2 % (11.5-14.5); RDW Standard Deviation 48.2 fL (36.4-46.3); White Blood Count 17.75 K/uL (4.8-10.8)
[2018-04-23 19:00] LABS: INR 1.1 (0.9-1.1); Partial Thromboplastin Ratio 1.2; Partial Thromboplastin Time 30.6 Seconds (21.0-31.0); Prothrombin Time 11.2 Seconds (9.0-12.0)
[2018-04-23 19:08] LABS: Albumin Level 3.5 gm/dl (3.4-5.0); Blood Urea Nitrogen 20 mg/dl (7-18); Calcium 9.2 mg/dl (8.5-10.1); Carbon Dioxide 29 mmol/L (21-32); Chloride 104 mmol/L (98-107); Glucose 118 mg/dl (70-99); Sodium 137 mmol/L (136-145)
[2018-04-23 19:10] LABS: Alanine Aminotransferase 17 U/L (12-78); Aspartate Aminotransferase 8 U/L (15-37); BUN Creatinine Ratio 17.7 (10-20); Creatinine Clr Calc Pharmacy 46.9 ml/min; Est GFR (African American) 69.1; Est GFR (Non-African American) 59.6; Magnesium 1.9 mg/dl (1.8-2.4)
[2018-04-23 19:11] LABS: Base Excess VBG 2.9 mEq/L; Oxygen Saturation VBG 85.6 %; pH VBG 7.47 (7.36-7.41)
[2018-04-23 19:16] LABS: Alkaline Phosphatase 84 U/L (45-117); Bilirubin,Total 0.6 mg/dl (0.2-1); Globulin 3.4 gm/dl (2.5-4.0); Total Protein 6.9 gm/dl (6.4-8.2)
[2018-04-23 19:31] LABS: Troponin I < 0.015 ng/ml (0-0.045)
[2018-04-23] MEDS ORDERED: SODIUM CHLORIDE 0.9% 1000ML 1,000 ML IV ONE (20:14)
[2018-04-23 20:32] LABS: Influenza A virus by PCR Neg for Influ A (Neg); Influenza B virus by PCR Neg for Influ B (Neg)
--- NOTE | 2018-04-23 21:17 | CT Scan Report ---
CT SCAN OF THE CHEST WITHOUT IV CONTRAST CLINICAL HISTORY: Right-sided pneumonia. COMPARISON STUDY: Chest CT dated 07/27/2017 and 10/24/2016. Chest x-ray dated 04/23/2018. Abdominal CT d ated 10/24/2016. TECHNIQUE: CT scan of the thorax was performed from the thoracic inlet to the upper abdomen. Images are reviewed in the axial, sagittal, and coronal planes. IV contrast was not administered for this ex amination as per the referring clinician. A dose lowering technique was utilized adhering to the emely Asha. CT DOSE: 306.10 mGy.cm FINDINGS: Thyroid: The thyroid gland is atrophic. A 1.6 cm low-attenuation nodule is seen in the left lobe. Cou rse calcifications are present in both lobes. Thoracic aorta: There is atherosclerotic calcification of the thoracic aorta, which is normal in julius rosemarie and demonstrates standard 3-vessel arch anatomy. Heart: The heart is normal in size and there is trace pericardial effusion. The coronary arteries are densely calcified. Diminished attenuation of the cardiac blood pool as compared to the myocardium lou ggesting anemia. Lungs and pleural spaces: Advanced emphysematous change is again noted. There is volume loss in the r ight lung as compared to left. There is patchy airspace consolidation seen within the anterior right upper lobe, the right middle lobe, and the right lower lobe. The left lung appears clear. Scattered c alcified granulomas are observed. There is trace right pleural effusion. A fat-containing Bochdalek h ernia is noted at the right lung base. Secretions are noted within the trachea and mainstem bronchi. Mediastinum: There is no mediastinal lymphadenopathy. There are calcification containing mediastinal nodes. Rosario: Not well assessed without IV contrast. There are calcification containing hilar nodes. Axillae: There is no axillary lymphadenopathy. Upper abdomen: There are numerous calcified hepatic and splenic granulomas. Bilateral adrenal adenoma s are similar to previous. The partially imaged kidneys demonstrate cortical atrophy. A 1. Centimeter cyst is noted in the left upper pole. There are nonobstructing left renal calculi which measure up t o 8 mm. An abdominal aortic aneurysm with focal dissection measures up to 3.5 cm. This was better harvinder racterized on the 10/24/[address] A ventral hernia in the upper abdomen contains nonobstructe d bowel loops. Skeletal structures: The skeletal structures are osteopenic. Degenerative changes noted in the should ers and thoracic spine. No lytic or blastic bony lesions are seen. Soft tissues: A 2.2 cm subcutaneous cyst is again seen in the upper left anterior chest wall on image #[id number]. This is unchanged from previous. IMPRESSION: 1. Patchy airspace consolidation throughout the right lung is typical in appearance for pneumonia. Ra diographic follow-up to resolution is recommended. 2. Advanced emphysema. 3. There is a trace right pleural effusion. 4. Left-sided nephrolithiasis. 5. A 3.5 cm abdominal aortic aneurysm is identified. This was better characterized on the 10/24/[address] 6. Additional findings as above. Electronically signed by: Jed Guidry M.D. 04/23/2018 9:15 PM
--- NOTE | 2018-04-23 22:28 | History & Physical Report ---
Date of Service April 23, 2018 Assessment & Plan (1) Community acquired pneumonia: 83-year-old male was admitted on 23 April 2018 for community-acquired pneumonia. Community acquired pneumonia: Reported 3-4 days of persistent coughing without noted shortness of breath. Denies chest pain. In ED, febrile, not tachycardic , but is tachypneic. WBC 17, ESR 48, CRP 13, lactate 1.1. EKG NSR and TnI negative. Negative for influenza A. Chest x-ray and CT chest non-con suggestive of right-sided pneumonia. - In ED, treated with Tylenol, IV fluids, Levaquin, and albuterol nebs. Blood cultures sent. Sputum culture and Gram stain ordered. - We will continue with Levaquin 750 mg IV every 24 hours. - At home is on Florastor. Will continue probiotic here. COPD: History of the same, though he is not really complaining of much shortness of breath. Is on 2 L NC continuously at home and up to 4 L when moving around. At home is on Advair, Combivent, and guaifenesin. - In ED, treated with albuterol. - We will continue with duo nebs scheduled, albuterol as needed, and add solumedrol 40 mg IV every 12 hours. Anemia: PMH same. Admit Hb 11.2. Recent comparisons in the 9-10 range. No reported evidence of acute bleeding. Is on iron at home. Continue here. Abdominal aortic aneurysm: As seen on CT chest. Ongoing medical issues: - Hypertension: At home is on amlodipine. Continue here. - Hyperparathyroidism: At home is on calcitriol, Tums, vitamin D3. Continue here. - GERD: At home is on pantoprazole. Continue here. - ? BPH: At home is on Proscar and tamsulosin. Continue here. - Perforated diverticulum, status post colostomy: Patient has concerns for return of a parastomal yeast infection that occurred with last IV antibiotics. --- Will order prophylactic nystatin application locally. - Short-term memory issues: Per son. No known formal dementia workup. Code status: Full code Diet: Regular DVT prophy: Lovenox PT/OT: Deferred. Disbo: Admit to [facility]. (2) COPD (chronic obstructive pulmonary disease): (3) Anemia: (4) Abdominal aortic aneurysm: (5) Hypertension: (6) Hyperparathyroidism: (7) GERD (gastroesophageal reflux disease): History of Present Illness Primary Care Provider: Mateus Boyd MD 83-year-old male presents with his son with a noted persistent cough over the past 3-4 days. His son says the patient is quite stoic and rarely ever complains. Positive fever at home today. He denies any chest pain or noted shortness of breath. Continues to use Advair and Combivent at home for COPD that was thought to be related to automobile exhaust exposure for decades. He wears 2 L nasal cannula oxygen at all times and increases to 4 L when moving about. Otherwise, patient does not have any particular complaints and says he would like to go home as soon as possible. Past medical history includes hypertension, ruptured diverticulum and pneumoperitoneum, hyperparathyroidism, COPD, GERD. Surgical history includes colon resection, partial parathyroidectomy. 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 Does denies alcohol use. Lives at home with multiple family members including . Allergies Allergy/AdvReac Type Severity Reaction Status Date / Time morphine AdvReac Severe Agitated Verified 04/23/18 19:30 Home Medications Home Medications Medication Instructions Recorded Confirmed Type C,E,zinc,copper 11-kgfmp6m-tfc 1 cap PO DAILY 04/23/18 04/23/18 History [Ocuvite Adult 50 Plus] Saccharomyces boulardii [Florastor] 250 mg PO DAILY 04/23/18 04/23/18 History amlodipine 10 mg PO DAILY 04/23/18 04/23/18 History calcitriol 0.5 mcg PO DAILY 04/23/18 04/23/18 History calcium carbonate [Tums] 200 mg PO DIRECTED PRN 04/23/18 04/23/18 History cholecalciferol (vitamin D3) 2,000 units PO DAILY 04/23/18 04/23/18 History [Vitamin D3] docusate sodium 200 mg PO BID 04/23/18 04/23/18 History ferrous sulfate [iron] 325 mg PO TID 04/23/18 04/23/18 History finasteride 5 mg PO DAILY 04/23/18 04/23/18 History fluticasone-salmeterol [Advair 1 inh INHALATION BID 04/23/18 04/23/18 History Diskus] guaifenesin 200 mg PO BID 04/23/18 04/23/18 History ipratropium-albuterol [Combivent 1 puff INHALATION QID 04/23/18 04/23/18 History Respimat] nyovznlp-gsm-ZX-lycopen-lutein 1 tab PO DAILY 04/23/18 04/23/18 History [Centrum Silver] pantoprazole 40 mg PO BID 04/23/18 04/23/18 History tamsulosin 0.4 mg PO DAILY 04/23/18 04/23/18 History Past Med/Surg History Medical History Hypertension Pneumoperitoneum Hyperparathyroidism (Chronic) COPD (chronic obstructive pulmonary disease) (Chronic) Colostomy complication (Inactive) Surgical History History of colon resection Family History Other No pertinent family history Social History marital status: Current Living Situation: Family current occupational status: retired Feels Safe at Home: Yes Safety Concerns: Feels Safe At This Time Smoking Status: Never smoker Hx Alcohol Use: No Hx Substance Use: No Beliefs That Will Affect Care: None Preferred Language: Tristanian Communication Ability: Effective Manager Gyn Required: No Review of Systems Constitutional: See HPI. Eyes: Denies any visual loss or diplopia ENT: Denies any ear/nose/throat pain or difficulty speaking or swallowing Respiratory: Denies any hemoptysis Cardiovascular: Denies any chest pain or feeling of edema Gastrointestinal: Denies any abdominal pain, nausea/vomiting/diarrhea Musculoskeletal: Denies any acute extremity pains, myalgias, or focal weakness Skin: Denies any known acute rashes or lesions Neuro: Denies any headache, acute focal weakness or numbness, or difficulties with speech or swallow. Psych: Denies any recent depression or anxiety Physical Exam 2 Vital Signs (Past 24 Hours): Last Vital Signs Temp 39.3 C H 04/23/18 17:44 Pulse 84 04/23/18 21:27 Resp 20 04/23/18 21:27 BP 115/60 04/23/18 21:27 Pulse Ox 98 04/23/18 21:27 Physical Exam: GENERAL: Awake, alert, well-appearing, conversing easily, in no acute distress HENT: Normocephalic, atraumatic. Oropharynx unremarkable. EYES: Normal conjunctiva. Sclera non-icteric. NECK: Inspection normal. Non-tender. Supple and full ROM. No nuchal rigidity. CARDIAC: +S1S2 RRR, no murmurs. RESPIRATORY: Normal respiratory effort. Diminished breath sounds in the bilateral lung doran with mild expiratory wheezing throughout. Nasal cannula oxygen in place. GI: +BS, soft, non-distended. No tenderness to palpation. No rebound or guarding. Left lower quadrant ostomy in place. Large easily reducible ventral hernia. EXTREMITIES: No pedal edema or calf tenderness. Moving all extremities naturally and easily. NEURO: No gross neuro deficits. Lines: PIV. Results & Data Laboratory Results 04/23/18 04/23/18 04/23/18 Range/Units 18:50 18:49 18:32 WBC (4.8-10.8) K/uL RBC (4.7-6.1) M/uL Hgb (14.0-18.0) g/dL Hct (42-52) % MCV (80-100) fL MCH (25-34) pg MCHC (32-36) g/dL RDW Std Deviation (36.4-46.3) fL RDW Coeff of Syl (11.5-14.5) % Plt Count (130-400) K/uL MPV (7.4-10.4) fL Immature Gran % (Auto) % Neut % (Auto) % Lymph % (Auto) % [place] % (Auto) % Eos % (Auto) % Baso % (Auto) % Immature Gran # (Auto) (0.00-0.02) K/uL Neut # (Auto) (1.4-6.5) K/uL Lymph # (Auto) (1.2-3.4) K/uL [place] # (Auto) (0.11-0.59) K/uL Eos # (Auto) (0-0.5) K/uL Baso # (Auto) (0-0.2) K/uL ESR (0-14) mm/hr PT (9.0-12.0) Seconds INR (0.9-1.1) APTT (21.0-31.0) Seconds PTT Ratio VBG pH 7.47 H (7.36-7.41) VBG pCO2 38 (38-50) mmHg VBG pO2 50 mmHg VBG HCO3 27 mmol/L VBG O2 Saturation 85.6 % VBG Base Excess 2.9 mEq/L Barometric Pressure 722.3 mm/Hg Sodium (136-145) mmol/L Potassium (3.5-5.1) mmol/L Chloride (98-107) mmol/L Carbon Dioxide (21-32) mmol/L Anion Gap (3-11) BUN (7-18) mg/dl Creatinine (0.6-1.4) mg/dl Est Cr Clr Drug Dosing ml/min Est GFR ( Amer) Est GFR (Non-Af Amer) BUN/Creatinine Ratio (10-20) Glucose (70-99) mg/dl Lactate 1.1 (0.4-2.0) mmol/L Calcium (8.5-10.1) mg/dl Magnesium Cancelled (1.8-2.4) mg/dl Total Bilirubin (0.2-1) mg/dl AST (15-37) U/L ALT (12-78) U/L Alkaline Phosphatase (45-117) U/L Troponin I Cancelled (0-0.045) ng/ml C-Reactive Protein Cancelled (0-0.29) mg/dl Total Protein (6.4-8.2) gm/dl Albumin (3.4-5.0) gm/dl Globulin (2.5-4.0) gm/dl Albumin/Globulin Ratio (0.9-2) Influenza Type A (PCR) (Neg) Influenza Type B (PCR) (Neg) 04/23/18 04/23/18 04/23/18 Range/Units 18:32 18:32 18:32 WBC (4.8-10.8) K/uL RBC (4.7-6.1) M/uL Hgb (14.0-18.0) g/dL Hct (42-52) % MCV (80-100) fL MCH (25-34) pg MCHC (32-36) g/dL RDW Std Deviation (36.4-46.3) fL RDW Coeff of Syl (11.5-14.5) % Plt Count (130-400) K/uL MPV (7.4-10.4) fL Immature Gran % (Auto) % Neut % (Auto) % Lymph % (Auto) % [place] % (Auto) % Eos % (Auto) % Baso % (Auto) % Immature Gran # (Auto) (0.00-0.02) K/uL Neut # (Auto) (1.4-6.5) K/uL Lymph # (Auto) (1.2-3.4) K/uL [place] # (Auto) (0.11-0.59) K/uL Eos # (Auto) (0-0.5) K/uL Baso # (Auto) (0-0.2) K/uL ESR 48 H (0-14) mm/hr PT 11.2 (9.0-12.0) Seconds INR 1.1 (0.9-1.1) APTT 30.6 (21.0-31.0) Seconds PTT Ratio 1.2 VBG pH (7.36-7.41) VBG pCO2 (38-50) mmHg VBG pO2 mmHg VBG HCO3 mmol/L VBG O2 Saturation % VBG Base Excess mEq/L Barometric Pressure mm/Hg Sodium 137 (136-145) mmol/L Potassium 4.0 (3.5-5.1) mmol/L Chloride 104 (98-107) mmol/L Carbon Dioxide 29 (21-32) mmol/L Anion Gap 4.0 (3-11) BUN 20 H (7-18) mg/dl Creatinine 1.12 (0.6-1.4) mg/dl Est Cr Clr Drug Dosing 46.9 ml/min Est GFR ( Amer) 69.1 Est GFR (Non-Af Amer) 59.6 BUN/Creatinine Ratio 17.7 (10-20) Glucose 118 H (70-99) mg/dl Lactate (0.4-2.0) mmol/L Calcium 9.2 (8.5-10.1) mg/dl Magnesium 1.9 (1.8-2.4) mg/dl Total Bilirubin 0.6 (0.2-1) mg/dl AST 8 L (15-37) U/L ALT 17 (12-78) U/L Alkaline Phosphatase 84 (45-117) U/L Troponin I < 0.015 (0-0.045) ng/ml C-Reactive Protein 13.50 H (0-0.29) mg/dl Total Protein 6.9 (6.4-8.2) gm/dl Albumin 3.5 (3.4-5.0) gm/dl Globulin 3.4 (2.5-4.0) gm/dl Albumin/Globulin Ratio 1.0 (0.9-2) Influenza Type A (PCR) (Neg) Influenza Type B (PCR) (Neg) 04/23/18 04/23/18 Range/Units 18:32 18:23 WBC 17.75 H (4.8-10.8) K/uL RBC 3.70 L (4.7-6.1) M/uL Hgb 11.2 L (14.0-18.0) g/dL Hct 34.2 L (42-52) % MCV 92.4 (80-100) fL MCH 30.3 (25-34) pg MCHC 32.7 (32-36) g/dL RDW Std Deviation 48.2 H (36.4-46.3) fL RDW Coeff of Syl 14.2 (11.5-14.5) % Plt Count 234 (130-400) K/uL MPV 10.2 (7.4-10.4) fL Immature Gran % (Auto) 0.2 % Neut % (Auto) 88.0 % Lymph % (Auto) 2.5 % [place] % (Auto) 9.0 % Eos % (Auto) 0.1 % Baso % (Auto) 0.2 % Immature Gran # (Auto) 0.04 H (0.00-0.02) K/uL Neut # (Auto) 15.62 H (1.4-6.5) K/uL Lymph # (Auto) 0.45 L (1.2-3.4) K/uL [place] # (Auto) 1.60 H (0.11-0.59) K/uL Eos # (Auto) 0.01 (0-0.5) K/uL Baso # (Auto) 0.03 (0-0.2) K/uL ESR (0-14) mm/hr PT (9.0-12.0) Seconds INR (0.9-1.1) APTT (21.0-31.0) Seconds PTT Ratio VBG pH (7.36-7.41) VBG pCO2 (38-50) mmHg VBG pO2 mmHg VBG HCO3 mmol/L VBG O2 Saturation % VBG Base Excess mEq/L Barometric Pressure mm/Hg Sodium (136-145) mmol/L Potassium (3.5-5.1) mmol/L Chloride (98-107) mmol/L Carbon Dioxide (21-32) mmol/L Anion Gap (3-11) BUN (7-18) mg/dl Creatinine (0.6-1.4) mg/dl Est Cr Clr Drug Dosing ml/min Est GFR ( Amer) Est GFR (Non-Af Amer) BUN/Creatinine Ratio (10-20) Glucose (70-99) mg/dl Lactate (0.4-2.0) mmol/L Calcium (8.5-10.1) mg/dl Magnesium (1.8-2.4) mg/dl Total Bilirubin (0.2-1) mg/dl AST (15-37) U/L ALT (12-78) U/L Alkaline Phosphatase (45-117) U/L Troponin I (0-0.045) ng/ml C-Reactive Protein (0-0.29) mg/dl Total Protein (6.4-8.2) gm/dl Albumin (3.4-5.0) gm/dl Globulin (2.5-4.0) gm/dl Albumin/Globulin Ratio (0.9-2) Influenza Type A (PCR) Neg for Influ A (Neg) Influenza Type B (PCR) Neg for Influ B (Neg) Diagnostic Findings SINGLE VIEW CHEST IMPRESSION: 1. There is patchy airspace consolidation at the right lung base and a trace right pleural effusion. The appearance is consistent with pneumonia/aspiration pneumonitis. Radiographic follow-up to resolution is recommended. 2. Advanced emphysema. CT SCAN OF THE CHEST WITHOUT IV CONTRAST IMPRESSION: 1. Patchy airspace consolidation throughout the right lung is typical in appearance for pneumonia. Radiographic follow-up to resolution is recommended. 2. Advanced emphysema. 3. There is a trace right pleural effusion. 4. Left-sided nephrolithiasis. 5. A 3.5 cm abdominal aortic aneurysm is identified. This was better characterized on the 10/24/[address] 6. Additional findings as above. Code Status & VTE Plan Code Status Full code VTE Prophylaxis Plan VTE Prophylaxis will be ordered: Yes Supervising Physician Co-Signing Physician Notes Attending addendum: I have physically seen this patient, have supervised the medical residents activities, and agree with the H&P unless as otherwise noted. Assessment and Plan: Community acquired pneumonia/COPD exacerbation-- Ceftriaxone 1 g IV daily Levofloxacin 750 mg IV every 24 hours. Solu-Medrol 40 mg IV every 12 hours. Guaifenesin extended release 600 mg by mouth twice a day Xopenex/Atovent nebs q6hwa and q2h prn Nasal cannula 2 L of oxygen titrating to keep pulse ox greater than or equal to 92%. Sputum Gram stain and cultures. Remainder of orders and notations as noted. Resident Activity Tracking Resident Involvement: Resident Care Provided Care Provided: Adult Hospital Medicine
[2018-04-24] MEDS ORDERED: ACETAMINOPHEN 325 MG TAB PO PRN (00:34)
[2018-04-24] MEDS ORDERED: ALBUTEROL 0.083% NEBU SOLN 3 ML VIAL NEB PRN (00:34)
[2018-04-24] MEDS ORDERED: ONDANSETRON INJ 2 MG/ML 2 ML VIAL IV PRN (00:34)
[2018-04-24] MEDS ORDERED: CALCIUM CARBONATE 500 MG CHEWABLE TAB PO PRN (00:34)
[2018-04-24] MEDS: methylPREDNISolone 40 MG in SYRINGE 0 ML IV SCH ×2 (02:18→14:14)
[2018-04-24] MEDS: NYSTATIN OINT 15 GM TUBE EXT SCH ×2 (02:18→08:44)
[2018-04-24] MEDS: ALBUT/IPRATROP 3MG/0.5MG NEB 3 ML VIAL NEB SCH ×2 (07:07→11:18)
[2018-04-24 07:18] LABS: Appearance Urine Clear (Clear); Bacteria Urine Automated Negative (Negative); Bilirubin Urine Negative (Negative); Cast Urine Automated 0 /lpf (0-5); Color Urine Yellow; Glucose Urine UA Negative (Negative); Ketones Urine Trace (Negative); Leukocyte Esterase Urine Negative (Negative); Nitrite Urine Negative (Negative); Protein Urine Negative (Negative); Specific Gravity Urine 1.011 (1.000-1.030); Urobilinogen Urine Negative (Negative); pH Urine 6.5 (4.5-7.5)
[2018-04-24 08:27] LABS: Basophils # (auto) 0.01 K/uL (0-0.2); Basophils % (auto) 0.1 %; Hematocrit (blood only) 35.5 % (42-52); Hemoglobin 11.3 g/dL (14.0-18.0); Immature Granulocytes # (auto) 0.03 K/uL (0.00-0.02); Immature Granulocytes % (auto) 0.2 %; Lymphocytes # (auto) 0.43 K/uL (1.2-3.4); Lymphocytes % (auto) 2.5 %; Mean Corpuscular Hgb Conc 31.8 g/dL (32-36); Mean Corpuscular Volume 92.7 fL (80-100); Mean Platelet Volume 10.4 fL (7.4-10.4); Monocytes # (auto) 0.42 K/uL (0.11-0.59); Monocytes % (auto) 2.5 %; Neutrophils # (auto) 15.99 K/uL (1.4-6.5); Neutrophils % (auto) 94.7 %; Platelet Count 244 K/uL (130-400); RDW Coefficient of Variation 14.3 % (11.5-14.5); RDW Standard Deviation 48.4 fL (36.4-46.3); Red Blood Count 3.83 M/uL (4.7-6.1); White Blood Count 16.88 K/uL (4.8-10.8)
[2018-04-24] MEDS: FERROUS SULFATE 325 MG TAB PO SCH ×2 (08:44→14:14)
[2018-04-24 08:53] LABS: BUN Creatinine Ratio 15.5 (10-20); Calcium 9.1 mg/dl (8.5-10.1); Creatinine Clr Calc Pharmacy 45.4 ml/min; Est GFR (African American) 67.6; Est GFR (Non-African American) 58.3; Potassium 3.8 mmol/L (3.5-5.1)
[2018-04-24] MEDS ORDERED: TAMSULOSIN HCL 0.4 MG CAP PO SCH (09:00)
[2018-04-24] MEDS ORDERED: guaiFENesin 200 MG TAB PO SCH (09:00)
[2018-04-24] MEDS ORDERED: DOCUSATE SODIUM 100 MG CAP PO SCH (09:00)
[2018-04-24] MEDS ORDERED: CHOLECALCIFEROL 1,000 UNITS TAB PO SCH (09:00)
[2018-04-24] MEDS ORDERED: NON-FORMULARY MEDICATION (C,E,Zinc,Copper 11-Omega3s-Lut [Ocuvite Adult 50 Plus] 1 CAP) PO SCH (09:00)
[2018-04-24] MEDS ORDERED: SACCHAROMYCES BOULARDII 250 MG CAP PO SCH (09:00)
[2018-04-24] MEDS ORDERED: CALCITRIOL 0.25 MCG CAPSULE PO SCH (09:00)
[2018-04-24] MEDS ORDERED: AMLODIPINE BESYLATE 5 MG TAB PO SCH (09:00)
[2018-04-24] MEDS ORDERED: PANTOprazole 40 MG TAB PO SCH (09:00)
[2018-04-24] MEDS ORDERED: FINASTERIDE 5 MG TAB PO SCH (09:00)
[2018-04-24] MEDS ORDERED: ENOXAPARIN INJ 30 MG/0.3 ML SYR SQ SCH (09:00)
[2018-04-24] MEDS ORDERED: CEROVITE ADV FORMULA TAB PO SCH (09:00)
[2018-04-25] MEDS ORDERED: levoFLOXacin 750 MG TAB PO SCH (19:00)
--- NOTE | 2018-04-26 17:29 | Discharge Summary ---
Date of Service April 24, 2018 Admission HPI Per Admitting Provider 83-year-old male presents with his son with a noted persistent cough over the past 3-4 days. His son says the patient is quite stoic and rarely ever complains. Positive fever at home today. He denies any chest pain or noted shortness of breath. Continues to use Advair and Combivent at home for COPD that was thought to be related to automobile exhaust exposure for decades. He wears 2 L nasal cannula oxygen at all times and increases to 4 L when moving about. Otherwise, patient does not have any particular complaints and says he would like to go home as soon as possible. Past medical history includes hypertension, ruptured diverticulum and pneumoperitoneum, hyperparathyroidism, COPD, GERD. Surgical history includes colon resection, partial parathyroidectomy. 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 Does denies alcohol use. Lives at home with multiple family members including . Principal Diagnosis Community Acquired Pneumonia Discharge Exam Constitutional WD/WN, vitals as above no acute distress and not ill appearing Eyes + anicteric sclerae ENMT Ears: no hearing impairment Mouth: + dry oral mucous membranes Throat: uvula midline; no posterior oropharynx abnormality Neck trachea midline Respiratory normal respiratory effort Auscultation: + rhonchi (b/l bases); no wheezes Cardiovascular Rate/Rhythm: regular rate and regular rhythm Gastrointestinal (Abdomen) Inspection/Auscultation: normal bowel sounds Percussion/Palpation: abdomen soft; abdomen nontender RLQ Colostomy with beefy red stoma Musculoskeletal Head/Neck/Chest: normocephalic, head atraumatic and neck supple Extremities: no cyanosis and no clubbing Gait: normal gait Skin no rashes, warm and dry Neurologic moves all extremities Psychiatric A+Ox3, euthymic affect Discharge Data Allergies Allergy/AdvReac Type Severity Reaction Status Date / Time morphine AdvReac Severe Agitated Verified 04/23/18 19:[address] SCAN OF THE CHEST WITHOUT IV CONTRAST FINDINGS: Thyroid: The thyroid gland is atrophic. A 1.6 cm low-attenuation nodule is seen in the left lobe. Course calcifications are present in both lobes. Thoracic aorta: There is atherosclerotic calcification of the thoracic aorta, which is normal in caliber and demonstrates standard 3-vessel arch anatomy. Heart: The heart is normal in size and there is trace pericardial effusion. The coronary arteries are densely calcified. Diminished attenuation of the cardiac blood pool as compared to the myocardium suggesting anemia. Lungs and pleural spaces: Advanced emphysematous change is again noted. There is volume loss in the right lung as compared to left. There is patchy airspace consolidation seen within the anterior right upper lobe, the right middle lobe, and the right lower lobe. The left lung appears clear. Scattered calcified granulomas are observed. There is trace right pleural effusion. A fat- containing Bochdalek hernia is noted at the right lung base. Secretions are noted within the trachea and mainstem bronchi. Mediastinum: There is no mediastinal lymphadenopathy. There are calcification containing mediastinal nodes. Rosario: Not well assessed without IV contrast. There are calcification containing hilar nodes. Axillae: There is no axillary lymphadenopathy. Upper abdomen: There are numerous calcified hepatic and splenic granulomas. Bilateral adrenal adenomas are similar to previous. The partially imaged kidneys demonstrate cortical atrophy. A 1. Centimeter cyst is noted in the left upper pole. There are nonobstructing left renal calculi which measure up to 8 mm. An abdominal aortic aneurysm with focal dissection measures up to 3.5 cm. This was better characterized on the 10/24/[address] A ventral hernia in the upper abdomen contains nonobstructed bowel loops. Skeletal structures: The skeletal structures are osteopenic. Degenerative changes noted in the shoulders and thoracic spine. No lytic or blastic bony lesions are seen. Soft tissues: A 2.2 cm subcutaneous cyst is again seen in the upper left anterior chest wall on image #[id number]. This is unchanged from previous. IMPRESSION: 1. Patchy airspace consolidation throughout the right lung is typical in appearance for pneumonia. Radiographic follow-up to resolution is recommended. 2. Advanced emphysema. 3. There is a trace right pleural effusion. 4. Left-sided nephrolithiasis. 5. A 3.5 cm abdominal aortic aneurysm is identified. This was better characterized on the 10/24/[address] 6. Additional findings as above. Hospital Course (1) Community acquired pneumonia: - Initially febrile and tachypneic on admission however remained afebrile and no respiratory distress since - He reports continued cough but denies worsening of respiratory status - Negative for influenza - Given renal function will dose Levaquin 750 mg Q48H to finish a course - He reports he normally wears 2 L NC continuously and 4 L with ambulation at home but here was saturating well on RA (2) COPD (chronic obstructive pulmonary disease): - Does not appear to be in an exacerbation but will do a quick Prednisone taper - Continuation of his home inhalers to include Advair and Combivent - Rx provided for nebulizer tubing and Duonebs to use at home as they do have a nebulizer machine (3) Abdominal aortic aneurysm: - Evidence on CT - recommend routine F/U and monitoring -- An abdominal aortic aneurysm with focal dissection measures up to 3.5 cm. This was better characterized on the 10/24/[address] (4) Hypertension: - Continued Amlodipine 10 mg daily Total Time Total Time Spent Total Time Spent (In Minutes): Greater than 30 minutes Discharge Plan Discharge Items Patient Disposition: Home - Self-Care Reason For Visit: COMMUNITY ACQUIRED PNA Discharge Diagnosis: Pneumonia Discharge Goals: Decrease discomfort, Improve function and Increase independence Activity: Resume your previous activity Non-emergency contact: Primary Care Provider Call non-emergency contact if: you have any medication questions and your symptoms worsen Follow-up/Referrals: Pablo Boyd MD [Primary Care Provider] - 05/02/18 2:30 pm (Please, follow up with Dr. Boyd on May 02 at 2:30 pm. *If you need to change this appointment, call the office at [phone].) Diet: Regular Addtl Provider Instructions: Pneumonia: - Your X-ray and CAT scan of your chest shows a consolidation in the right loung that appears like a pneumonia. It does recommend that you have a follow- up scan after your recover to make sure this is resolved. Your family doctor can help arrange this. - You were also tested for the flu and this was negative - May continue to take Tylenol as needed if you feel like you are having a fever. - You will need to continue an antibiotic to treat this pneumonia. Due to its affects of the kidneys and looking at your lab work you need to take this medication every other day as follows -- Levaquin 750 mg on 04/25/18 then on 04/27/18 then on 04/29/18 then 05/01/18 and you will then be done with your antibiotic - Will also do a short course of steroids as follows -- Prednisone 40 mg starting on 04/25/18 as you had steroids today then 30 mg on 04/26 then 20 mg on 04/27 then 10 mg on 04/28. - Continue your inhalers as your previously would. - Your family has a nebulizer machine at home and you can use this. Recommend to use the nebulizer as needed for shortness of breath. You can use this up to four times a day if you need to. Home Medications: Continue your home medications as previously prescribed as we did not make any adjustments. If there is any issues with the medication list given from here, please discuss with your family doctor. Prescriptions: New levofloxacin 750 mg Tablet 750 mg PO Q48H Qty: 4 RF: 0 ipratropium-albuterol 0.5 mg-3 mg(2.5 mg base)/3 mL Solution For Nebulization 3 ml NEB QIDR PRN (Reason: SOB/Wheezing) 14 Days Qty: 168 RF: 0 prednisone 10 mg tablet 10 mg PO DIRECTED Qty: 10 RF: 0 Continue fluticasone-salmeterol [Advair Diskus] 250-50 mcg/dose Blister With Device 1 inh INHALATION BID RF: 0 guaifenesin 200 mg Tablet 200 mg PO BID RF: 0 tamsulosin 0.4 mg Capsule 0.4 mg PO DAILY RF: 0 amlodipine 10 mg Tablet 10 mg PO DAILY RF: 0 pantoprazole 40 mg Tablet,Delayed Release (Dr/Ec) 40 mg PO BID RF: 0 ferrous sulfate [iron] 325 mg (65 mg iron) Tablet 325 mg PO TID RF: 0 calcitriol 0.5 mcg Capsule 0.5 mcg PO DAILY RF: 0 calcium carbonate [Tums] 200 mg calcium (500 mg) Tablet,Chewable 200 mg PO DIRECTED PRN (Reason: Indigestion) RF: 0 docusate sodium 100 mg Capsule 200 mg PO BID RF: 0 finasteride 5 mg Tablet 5 mg PO DAILY RF: 0 Saccharomyces boulardii [Florastor] 250 mg Capsule 250 mg PO DAILY RF: 0 iirrmtth-rdx-FE-lycopen-lutein [Centrum Silver] 0.4-300-250 mg-mcg-mcg Tablet 1 tab PO DAILY RF: 0 cholecalciferol (vitamin D3) [Vitamin D3] 2,000 unit Capsule 2,000 units PO DAILY RF: 0 C,E,zinc,copper 72-[id number]-jyp [Ocuvite Adult 50 Plus] 250-5-1 mg Capsule 1 cap PO DAILY RF: 0 ipratropium-albuterol [Combivent Respimat] 20-100 mcg/actuation Mist 1 puff INHALATION QID RF: 0 Visit Report Forms: [facility] Stand-Alone Forms: Pending Sale To [facility] Discharge Orders: Discharge Order (Routine); Ordered 04/24/18 Ordered By: Bandar Guillen Admission Data Admit Date/Time: 04/23/18 22:19 Attending Provider: Juan Ham Admit Provider: Campbell Acosta Primary Care Provider: Pablo Boyd Service: Medical Other Interventions: Discharge Summary Assessment (RN) Last Done: 04/24/18 13:45 Pending Studies at Discharge: No DC Date/Time DO NOT enter until pt leaves facility: 04/24/18 14:28
== END 2018-04-24 14:28 | disposition home or self-care (01) | DRG 194 ==
LOC: ED 17:32 → 2W 22:19
DX: I71.4 Abdominal aortic aneurysm, without rupture; J44.0 Chronic obstructive pulmonary disease with (acute) lower respiratory infection; Z79.899 Other long term (current) drug therapy; I10 Essential (primary) hypertension; Z90.49 Acquired absence of other specified parts of digestive tract; Z93.3 Colostomy status; R41.3 Other amnesia; J18.9 Pneumonia, unspecified organism; E89.2 Postprocedural hypoparathyroidism; D64.9 Anemia, unspecified; N40.0 Benign prostatic hyperplasia without lower urinary tract symptoms; Z88.5 Allergy status to narcotic agent; T58 Toxic effect of carbon monoxide; Z99.81 Dependence on supplemental oxygen; K21.9 Gastro-esophageal reflux disease without esophagitis; Z79.51 Long term (current) use of inhaled steroids

== ENCOUNTER 2020-02-19 00:54 | Inpatient (IN) ==
[2020-02-19] MEDS ORDERED: CEFEPIME 2,000 MG in SYRINGE 0 ML IV STA (01:15)
[2020-02-19] MEDS ORDERED: ALBUT/IPRATROP 3MG/0.5MG NEB 3 ML VIAL INH STA (01:15)
[2020-02-19] MEDS ORDERED: DEXAMETHASONE SOD INJ 10 MG/ML VIAL IV ONE (01:15)
[2020-02-19 01:30] LABS: Basophils # (auto) 0.04 K/uL (0-0.2); Basophils % (auto) 0.3 %; Eosinophils # (auto) 0.17 K/uL (0-0.5); Eosinophils % (auto) 1.3 %; Hematocrit (blood only) 35.3 % (42-52); Hemoglobin 11.3 g/dL (14.0-18.0); Immature Granulocytes # (auto) 0.03 K/uL (0.00-0.02); Immature Granulocytes % (auto) 0.2 %; Lymphocytes % (auto) 3.9 %; Mean Corpuscular Hemoglobin 30.4 pg (25-34); Mean Corpuscular Volume 94.9 fL (80-100); Mean Platelet Volume 10.5 fL (7.4-10.4); Monocytes # (auto) 0.99 K/uL (0.11-0.59); Monocytes % (auto) 7.7 %; Neutrophils # (auto) 11.21 K/uL (1.4-6.5); Neutrophils % (auto) 86.6 %; Platelet Count 211 K/uL (130-400); RDW Coefficient of Variation 14.9 % (11.5-14.5); RDW Standard Deviation 51.6 fL (36.4-46.3); Red Blood Count 3.72 M/uL (4.7-6.1); White Blood Count 12.94 K/uL (4.8-10.8)
[2020-02-19] MEDS ORDERED: CEFEPIME 2,000 MG/20 ML VIAL ONE (01:31)
[2020-02-19 01:38] LABS: Partial Thromboplastin Ratio 0.9; Partial Thromboplastin Time 26.3 Seconds (21.0-31.0); Prothrombin Time 10.3 Seconds (9.0-12.0)
[2020-02-19 01:46] LABS: Albumin Level 3.5 gm/dl (3.4-5.0); BUN Creatinine Ratio 22.2 (10-20); Calcium 9.1 mg/dl (8.5-10.1); Creatinine Clr Calc Pharmacy 51.7 ml/min; Est GFR (African American) 76.8; Est GFR (Non-African American) 66.2; Magnesium 2.1 mg/dl (1.8-2.4); Potassium 3.6 mmol/L (3.5-5.1)
[2020-02-19 01:51] LABS: Bilirubin,Total 0.5 mg/dl (0.2-1); Globulin 3.5 gm/dl (2.5-4.0); Troponin I 0.02 ng/ml (0-0.045)
[2020-02-19] MEDS ORDERED: ALBUT/IPRATROP 3MG/0.5MG NEB 3 ML VIAL NEB ONE (02:15)
[2020-02-19 02:31] LABS: Adenovirus PCR Not Detected (NotDetected); Bordetella parapertussis PCR Not Detected (NotDetected); Bordetella pertussis PCR Not Detected (NotDetected); Chlamydia pneumoniae PCR Not Detected (NotDetected); Coronavirus 229E PCR Not Detected (NotDetected); Coronavirus CoV-2 (COVID19)PCR Not Detected (NotDetected); Coronavirus HKU1 PCR Not Detected (NotDetected); Coronavirus NL63 PCR Not Detected (NotDetected); Coronavirus OC43PCR Not Detected (NotDetected); Human Metapneumovirus PCR Not Detected (NotDetected); Influenza A PCR Not Detected (NotDetected); Influenza B PCR Not Detected (NotDetected); Mycoplasma pneumoniae PCR Not Detected (NotDetected); Parainfluenza Virus 1 PCR Not Detected (NotDetected); Parainfluenza Virus 2 PCR Not Detected (NotDetected); Parainfluenza Virus 3 PCR Not Detected (NotDetected); Parainfluenza Virus 4 PCR Not Detected (NotDetected); Respiratory Syncytial VirusPCR Not Detected (NotDetected); Rhinovirus/Enterovirus PCR Not Detected (NotDetected)
--- NOTE | 2020-02-19 03:20 | History & Physical Report ---
Date of Service February 19, 2020 Assessment & Plan (1) Pneumonia: Ford Kumari is an 84-year-old male with a past medical history of hyperparathyroidism, pneumoperitoneum, colostomy, GERD, COPD, hypertension, and abdominal aortic aneurysm who presents for evaluation of shortness of breath and dyspnea and he was found to have a leukocytosis on arrival to the ER. Acute hypoxic respiratory failure 2/2 Right lower lobe pneumonia +/- RLL pna Leukocytosis to 12.94 on admission Tachycardic, afebrile on admission Patient initially stable on nasal cannula, per ED provider hypoxia to the 80s and worsening work of breathing requiring escalation to nonrebreather and BiPAP. Patient clinically improved on BiPAP at time of admission assessment. Pro-Jose pending CXR: ?Streaking opacity in right lower lobe Troponin normal Bio fire negative, Covid not detected Blood cultures pending Received cefepime and dexamethasone in emergency department COPD treatment as below No history of Pseudomonas, recurrent hospitalizations. Narrow cefepime to Rocephin 2 g daily BiPAP as needed COPD exacerbation Continue Advair 250/50 1 puff twice daily DuoNebs as needed Azithromycin 500 mg IV Flutter valve, incentive spirometry Methylprednisolone 30 mg every 8 hours Hypertension Hypertensive on admission Continue amlodipine 10 mg daily Abdominal aortic aneurysm Last follow-up ultrasound 06/21/2017 showed stable focal aneurysm with prior CT noting a diameter of 3.5 cm, patient had declined follow-up at subsequent outpatient visits Elevated PSA, prostate nodule Patient with elevated PSA (1.7 in 2017) and nodule noted on CT scan, was not pursuing aggressive work-up as outpatient Colostomy Patient with 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 CODE STATUS: Full code Disposition: PCU (2) Fever: (3) Anemia: (4) History of hyperparathyroidism: (5) Community acquired pneumonia: (6) Abdominal aortic aneurysm: (7) GERD (gastroesophageal reflux disease): History of Present Illness Chief Complaint: Shortness of breath, dyspnea Primary Care Provider: Mateus Boyd MD Ford Kumari is an 84-year-old male with a past medical history of hyperparathyroidism, pneumoperitoneum, colostomy, GERD, COPD, hypertension, and abdominal aortic aneurysm who presents for evaluation of shortness of breath and dyspnea and he was found to have a leukocytosis on arrival to the ER. Ford reports he has been having increased shortness of breath and difficulty breathing for 1 to 2 weeks. He feels he has a nonproductive cough with a little wheezing. He has not had fever, chills, night sweats. He has not had any sick contacts. His cough is not productive. He had a similar presentation with pneumonia several months ago. He has not had any abdominal pain, nausea, vomiting, change in ostomy output. No new swelling in the legs. He lives at [facility] with his and grandchildren. He has remote tobacco use, none in many years. Denies alcohol and recreational drug use. He is not a good historian of his medications, and reports that his memory is poor. He does not think he has tried any attempted treatments for his current difficulty breathing, and thinks he took his medications this morning. They are mostly managed by his granddaughter Tena. He has a extremely large abdominal hernia which he reports has not changed. He has a left upper chest subcutaneous mobile density which she reports he does not know what it is but is been there for many years, denies a history of cancer. It is not tender. Medications: Reviewed Medical history: Reviewed Surgical history: Reviewed Family history: Reviewed, noncontributory Allergies: Reviewed, agitation to morphine Social: See above, no tobacco use, lives with and grandchildren. CODE STATUS full code Allergies Allergy/AdvReac Type Severity Reaction Status Date / Time morphine AdvReac Severe Agitated Verified 02/19/20 01:37 Home Medications Home Medications Medication Instructions Recorded Confirmed Type Centrum Silver 1 tab PO DAILY 04/23/18 02/19/20 History Saccharomyces boulardii [Florastor] 250 mg PO UD 04/23/18 02/19/20 History docusate sodium 200 mg PO BID 04/23/18 02/19/20 History ferrous sulfate [iron] 325 mg PO UD 04/23/18 02/19/20 History finasteride 5 mg tablet 5 mg PO DAILY #90 tab 10/15/19 02/19/20 Rx amlodipine 10 mg tablet 10 mg PO DAILY #90 tab 10/17/19 02/19/20 Rx tamsulosin 0.4 mg capsule 0.4 mg PO HS #90 cap 10/28/19 02/19/20 Rx fluticasone 250 mcg-salmeterol 50 1 inh INHALATION BID #60 ea 11/24/19 02/19/20 Rx mcg/dose blistr powdr for inhalation guaifenesin 600 mg tablet, 600 mg PO BID #60 tab 12/05/19 02/19/20 Rx extended release 12 hr ipratropium 0.5 mg-albuterol 3 mg 3 ml INHALATION Q6H PRN #90 ml 12/05/19 02/19/20 Rx (2.5 mg base)/3 mL nebulization soln vit C 250 mg-E 200 unit-zinc 40 1 tab PO ONCE #30 cap 12/05/19 02/19/20 Rx mg-copper 1 [id number]-trbmez capsule pantoprazole 40 mg tablet,delayed 40 mg PO BID #60 tab 01/05/20 02/19/20 Rx release cholecalciferol (vitamin D3) 50 2,000 unit PO DAILY #90 cap 02/11/20 02/19/20 Rx mcg (2,000 unit) capsule calcitriol 0.25 mcg PO DAILY 02/19/20 02/19/20 History ipratropium-albuterol [Combivent 1 puff INHALATION QID 02/19/20 02/19/20 History Respimat] Past Med/Surg History Medical History (Updated 06/27/19 @ 17:46 by Manuelito Brizuela MD) Colostomy complication COPD (chronic obstructive pulmonary disease) Hyperparathyroidism Hypertension Pneumoperitoneum Surgical History History of colon resection Family History Other No pertinent family history Social History Smoking Status: Former smoker Second Hand Exposure: No; Do You Dip or Chew Tobacco: No; Tobacco Cessation Education Requested by Patient: No Hx Alcohol Use: No Hx Substance Use: No Preferred Language: Cypriot Communication Ability: Effective Hearing Ability: Hard of Hearing 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 Answers questions appropriately. On BiPAP. HEENT: Atraumatic, normocephalic. Pupils equal and responsive to light and accommodation. Visual acuity grossly intact. Hearing grossly intact. Speech fluent. Mucous membranes tacky. Pulm: Lungs diffusely rhonchorous. Symmetrical chest rise. On BiPAP, no acute respiratory distress at time of visit. Small, approximately 2 cm firm nontender irregularity palpable on left upper chest. No thrill appreciated, no lou rrounding erythema. Cardiac: RRR, -mrg. Radial pulses intact and symmetrical. Abdominal: Large nonincarcerated abdominal hernia appreciated. Ostomy bag in place. Nontender, soft. Extremities: Moving all extremities equally. Sensation in hands and feet grossly intact. PT pulses intact and symmetrical bilaterally. Results & Data Results & Data ([facility]) Vital Signs (Past 12 Hours) Vital Signs Temp Pulse Pulse Resp BP Pulse Ox 02/19/20 02:34 105 H 105 H 22 98 02/19/20 02:22 96 02/19/20 01:34 97 02/19/20 01:31 102 H 20 97 02/19/20 01:25 97 02/19/20 01:20 37.1 C 102 H 30 H 162/83 H 97 Supervising Physician Co-Signing Physician Notes Patient seen and examined, chart reviewed, case discussed with Dr. Limon and I agree with his assessment and plan as documented above. Briefly, patient is an 84yo male presenting with SOB. Placed on BiPAP in ER for increased WOB, now improved On exam he is afebrile, HD stable, saturating well on BiPAP 12/6, 60% FiO2 Diffuse rhonchi, no rales/wheezes +abdominal wall hernia, reducible and soft No edema Labs and images reviewed Assessment/Plan: Suspect underlying PNA, COPD exacerbation -Continue BiPAP, wean as tolerated -Azithromycin/Ceftriaxone for presumed CAP -Steroids, nebs, O2 -Remainder of plan as above Resident Activity Tracking Resident Involvement: Resident Care Provided Care Provided: Adult Hospital Medicine (1) Fever Fever type: unspecified Qualified Code(s): R50.9 - Fever, unspecified (2) Pneumonia Laterality: right Lung location: lower lobe of lung Pneumonia type: due to unspecified organism Qualified Code(s): J18.1 - Lobar pneumonia, unspecified organism
[2020-02-19] MEDS ORDERED: ALBUT/IPRATROP 3MG/0.5MG NEB 3 ML VIAL NEB PRN (05:25)
[2020-02-19] MEDS ORDERED: ONDANSETRON INJ 2 MG/ML 2 ML VIAL IV PRN (05:25)
[2020-02-19] MEDS ORDERED: LACTATED RINGER'S 1,000 ML IV SCH (05:25)
[2020-02-19] MEDS ORDERED: ACETAMINOPHEN 325 MG TAB PO PRN (05:25)
--- NOTE | 2020-02-19 05:53 | Billing Data ---
Date of Service February 19, 2020 Coding Level of Care Code 98768 Initial Inpt Care Lvl 3
[2020-02-19] MEDS: cefTRIAXone SODIUM 2,000 MG in DEXTROSE 5% 50 ML IV SCH (06:22)
[2020-02-19] MEDS: ADVANCED PROBIOTIC 1250 MG CAPSULE PO SCH ×3 (07:53→17:04)
[2020-02-19] MEDS: FERROUS SULFATE 325 MG TAB PO SCH (07:53)
[2020-02-19] MEDS: methylPREDNISolone 30 MG in SYRINGE 0 ML IV SCH ×3 (07:53→23:22)
[2020-02-19] MEDS: ENOXAPARIN INJ 40 MG/0.4 ML SYR SQ SCH (07:53)
[2020-02-19] MEDS: FLUTICASONE/VILANTEROL 200/25MCG 14 PUFFS/INHALER INH SCH (07:54)
[2020-02-19] MEDS: guaiFENesin 600 MG TABCR PO SCH ×2 (07:54→21:11)
[2020-02-19] MEDS: amLODIPine BESYLATE 5 MG TAB PO SCH (07:55)
[2020-02-19] MEDS: PANTOprazole 40 MG TAB PO SCH ×2 (07:55→21:11)
[2020-02-19] MEDS: FINASTERIDE 5 MG TAB PO SCH (07:55)
[2020-02-19] MEDS ORDERED: AZITHROMYCIN 500 MG in DEXTROSE 5% 250 ML IV SCH (08:00)
--- NOTE | 2020-02-19 08:04 | Emergency Department Note ---
History of Present Illness General Chief complaint: Shortness of Breath/Dyspnea Source: patient and RN notes reviewed Mode of arrival: EMS Limitations: no limitations History of Present Illness Provider complaint: SOB This patient is an 84-year-old male who presents emergency department with complaints of shortness of breath that has worsened over the course of the day. The patient's family has given him several nebulizer treatments however his work of breathing seems to be worsening. Patient has had a moist cough. He does have a longstanding history of COPD with recurrent bronchitis/pneumonia. Patient denies any fevers, chills or chest pain. He denies any vomiting or recent choking episodes. Patient is not currently taking any antibiotics. History is somewhat limited due to patient's difficulty breathing, most of the history is obtained from EMS/nursing. He denies any known Covid exposure. Home Medications Home Medications Medication Instructions Recorded Confirmed Type Centrum Silver 1 tab PO DAILY 04/23/18 02/19/20 History Saccharomyces boulardii [Florastor] 250 mg PO UD 04/23/18 02/19/20 History docusate sodium 200 mg PO BID 04/23/18 02/19/20 History ferrous sulfate [iron] 325 mg PO UD 04/23/18 02/19/20 History finasteride 5 mg tablet 5 mg PO DAILY #90 tab 10/15/19 02/19/20 Rx amlodipine 10 mg tablet 10 mg PO DAILY #90 tab 10/17/19 02/19/20 Rx tamsulosin 0.4 mg capsule 0.4 mg PO HS #90 cap 10/28/19 02/19/20 Rx fluticasone 250 mcg-salmeterol 50 1 inh INHALATION BID #60 ea 11/24/19 02/19/20 Rx mcg/dose blistr powdr for inhalation guaifenesin 600 mg tablet, 600 mg PO BID #60 tab 12/05/19 02/19/20 Rx extended release 12 hr ipratropium 0.5 mg-albuterol 3 mg 3 ml INHALATION Q6H PRN #90 ml 12/05/19 02/19/20 Rx (2.5 mg base)/3 mL nebulization soln vit C 250 mg-E 200 unit-zinc 40 1 tab PO ONCE #30 cap 12/05/19 02/19/20 Rx mg-copper 1 [id number] capsule pantoprazole 40 mg tablet,delayed 40 mg PO BID #60 tab 01/05/20 02/19/20 Rx release cholecalciferol (vitamin D3) 50 2,000 unit PO DAILY #90 cap 02/11/20 02/19/20 Rx mcg (2,000 unit) capsule ipratropium-albuterol [Combivent 1 puff INHALATION QID 02/19/20 02/19/20 History Respimat] Allergies Allergy/AdvReac Type Severity Reaction Status Date / Time morphine AdvReac Severe Agitated Verified 02/19/20 01:37 Past Med/Surg History Medical History Colostomy complication COPD (chronic obstructive pulmonary disease) Hyperparathyroidism Hypertension Pneumoperitoneum Surgical History History of colon resection Family History Other No pertinent family history Social History Smoking Status: Former smoker Second Hand Exposure: No; Do You Dip or Chew Tobacco: No; Tobacco Cessation Education Requested by Patient: No Hx Alcohol Use: No Hx Substance Use: No Preferred Language: [place] Communication Ability: Effective Hearing Ability: Hard of Hearing Pharmacy Clinical Coordinator Required: No Beliefs That Will Affect Care: None marital status: Current Living Situation: Spouse and Family Current Living Situation Comment: and grandchilren current occupational status: retired Other Information That Helps Us Care for You: No Feels Safe at Home: Yes Safety Concerns: Feels Safe At This Time Assistive Devices: Walker Review of Systems See HPI for pertinent positives & negatives. and A total of 10 systems reviewed and were otherwise negative Physical Exam Vital Signs Vital Signs - 24 hr 02/19/20 01:20 02/19/20 01:25 02/19/20 01:31 Temperature 37.1 C Temperature Source Oral Pulse Rate 102 H Pulse Rate [Finger] 102 H Pulse Rate from SpO2 Sensor Pulse Rhythm [Finger] Respiratory Rate 30 H 20 Respiratory Effort / Characteristics Spontaneous Spontaneous Labored Respiratory Depth Normal Respiratory Pattern Regular Blood Pressure 162/83 H Blood Pressure [Right Arm] Blood Pressure Mean 109 Blood Pressure Mean [Right Arm] Pulse Oximetry 97 97 97 Oxygen Delivery Method Nasal Cannula Nasal Cannula Nasal Cannula Oxygen Flow Rate 2 2 4 Fraction of Inspired Oxygen Sepsis Recent Fever Within 48 Hours Yes Sepsis New/Unexplained Change in Mental Status N/A Sepsis Action Taken by Nursing No Action Required Oxygen Flow Rate - Titration 02/19/20 01:34 02/19/20 02:00 02/19/20 02:10 Temperature Temperature Source Pulse Rate 113 H 116 H Pulse Rate [Finger] Pulse Rate from SpO2 Sensor 113 H 116 H Pulse Rhythm [Finger] Respiratory Rate 32 H 32 H Respiratory Effort / Characteristics Respiratory Depth Respiratory Pattern Blood Pressure Blood Pressure [Right Arm] Blood Pressure Mean Blood Pressure Mean [Right Arm] Pulse Oximetry 97 92 88 L Oxygen Delivery Method Nasal Cannula Oxygen Flow Rate 4 4 4 Fraction of Inspired Oxygen Sepsis Recent Fever Within 48 Hours Sepsis New/Unexplained Change in Mental Status Sepsis Action Taken by Nursing Oxygen Flow Rate - Titration 4 02/19/20 02:15 02/19/20 02:22 02/19/20 02:34 Temperature Temperature Source Pulse Rate 116 H 105 H Pulse Rate [Finger] 105 H Pulse Rate from SpO2 Sensor 116 H Pulse Rhythm [Finger] Respiratory Rate 38 H 22 Respiratory Effort / Characteristics Spontaneous Labored Respiratory Depth Deep Respiratory Pattern Regular Blood Pressure Blood Pressure [Right Arm] Blood Pressure Mean Blood Pressure Mean [Right Arm] Pulse Oximetry 90 96 98 Oxygen Delivery Method Non-rebreather BiPAP Oxygen Flow Rate 15 Fraction of Inspired Oxygen 60 Sepsis Recent Fever Within 48 Hours Sepsis New/Unexplained Change in Mental Status Sepsis Action Taken by Nursing Oxygen Flow Rate - Titration 02/19/20 02:50 02/19/20 02:55 02/19/20 03:00 Temperature Temperature Source Pulse Rate 107 H 106 H 105 H Pulse Rate [Finger] Pulse Rate from SpO2 Sensor 107 H 106 H 105 H Pulse Rhythm [Finger] Respiratory Rate 38 H 32 H 39 H Respiratory Effort / Characteristics Respiratory Depth Respiratory Pattern Blood Pressure Blood Pressure [Right Arm] Blood Pressure Mean Blood Pressure Mean [Right Arm] Pulse Oximetry 98 98 98 Oxygen Delivery Method BiPAP Oxygen Flow Rate Fraction of Inspired Oxygen 60 Sepsis Recent Fever Within 48 Hours Sepsis New/Unexplained Change in Mental Status Sepsis Action Taken by Nursing Oxygen Flow Rate - Titration 02/19/20 03:05 02/19/20 03:10 02/19/20 03:12 Temperature Temperature Source Pulse Rate 104 H 103 H 104 H Pulse Rate [Finger] Pulse Rate from SpO2 Sensor 104 H 104 H 104 H Pulse Rhythm [Finger] Respiratory Rate 32 H 40 H 37 H Respiratory Effort / Characteristics Respiratory Depth Respiratory Pattern Blood Pressure 145/69 H Blood Pressure [Right Arm] Blood Pressure Mean 93 Blood Pressure Mean [Right Arm] Pulse Oximetry 98 98 98 Oxygen Delivery Method Oxygen Flow Rate Fraction of Inspired Oxygen Sepsis Recent Fever Within 48 Hours Sepsis New/Unexplained Change in Mental Status Sepsis Action Taken by Nursing Oxygen Flow Rate - Titration 02/19/20 03:15 02/19/20 03:20 02/19/20 03:23 Temperature Temperature Source Pulse Rate 105 H 104 H Pulse Rate [Finger] 103 H Pulse Rate from SpO2 Sensor 105 H 106 H Pulse Rhythm [Finger] Regular Respiratory Rate 29 H 37 H 38 H Respiratory Effort / Characteristics Non-Labored Spontaneous Respiratory Depth Normal Respiratory Pattern Blood Pressure Blood Pressure [Right Arm] 145/69 H Blood Pressure Mean Blood Pressure Mean [Right Arm] 94 Pulse Oximetry 98 98 98 Oxygen Delivery Method BiPAP Oxygen Flow Rate Fraction of Inspired Oxygen Sepsis Recent Fever Within 48 Hours Sepsis New/Unexplained Change in Mental Status Sepsis Action Taken by Nursing Oxygen Flow Rate - Titration Vital signs reviewed. General: Conically ill-appearing 84 yo male, in some respiratory discomfort HEENT: No scleral icterus, PERRLA, neck supple. Atraumatic. Cardiovascular: Regular rate and rhythm, no extra sounds. Pulmonary: Rhonchorous breath sounds bilaterally, distant. Moist cough. Increased work of breathing. Abdomen: Soft, nontender, nondistended, positive bowel sounds. Musculoskeletal: Atraumatic, no peripheral edema. Neurologic: Patient awake alert and oriented x 3 Skin: Warm, dry, no rash Course Administered Medications Acetaminophen (Acetaminophen 325 Mg Tab) 650 mg PO Q4H PRN PRN Reason: Pain or Fever Stop: 03/20/20 05:24 Last Admin: 02/19/20 05:54 Dose: 650 mg Documented by: [id number] Albuterol (Albut/Ipratrop 3mg/0.5mg Neb 3 Ml Vial) 3 ml NEB QIDR [facility] Stop: 03/20/20 14:59 Last Admin: 02/20/20 07:20 Dose: 3 ml Documented by: [id number] Admin: 02/19/20 19:08 Dose: 3 ml Documented by: [id number] Admin: 02/19/20 16:20 Dose: 3 ml Documented by: [id number] Amlodipine Besylate (Amlodipine Besylate 5 Mg Tab) 10 mg PO DAILY [facility] Stop: 03/20/20 08:59 Last Admin: 02/20/20 07:58 Dose: 10 mg Documented by: [id number] Admin: 02/19/20 07:55 Dose: 10 mg Documented by: [id number] Azithromycin (Azithromycin 250 Mg Tab) 250 mg PO QAM [facility] Stop: 02/27/20 08:59 Last Admin: 02/20/20 07:58 Dose: 250 mg Documented by: [id number] Enoxaparin Sodium (Enoxaparin Inj 40 Mg/0.4 Ml Syr) 40 mg SQ Q24H [facility] Stop: 03/20/20 07:59 Last Admin: 02/20/20 07:59 Dose: 40 mg Documented by: [id number] Admin: 02/19/20 07:53 Dose: 40 mg Documented by: [id number] Ferrous Sulfate (Ferrous Sulfate 325 Mg Tab) 325 mg PO DAILY [facility] Stop: 03/20/20 08:59 Last Admin: 02/20/20 07:58 Dose: 325 mg Documented by: [id number] Admin: 02/19/20 07:53 Dose: 325 mg Documented by: [id number] Finasteride (Finasteride 5 Mg Tab) 5 mg PO DAILY [facility] Stop: 03/20/20 08:59 Last Admin: 02/20/20 07:58 Dose: 5 mg Documented by: [id number] Admin: 02/19/20 07:55 Dose: 5 mg Documented by: [id number] Fluticasone/Vilanterol (Fluticasone/Vilanterol 200/25mcg 14 Puffs/Inhaler) 1 puffs INH DAILY [facility] Stop: 03/20/20 08:59 Last Admin: 02/20/20 07:58 Dose: 1 puffs Documented by: [id number] Admin: 02/19/20 07:54 Dose: 1 puffs Documented by: [id number] Guaifenesin (Guaifenesin 600 Mg Tabcr) 600 mg PO BID [facility] Stop: 03/20/20 08:59 Last Admin: 02/20/20 07:57 Dose: 600 mg Documented by: [id number] Admin: 02/19/20 21:11 Dose: 600 mg Documented by: [id number] Admin: 02/19/20 07:54 Dose: 600 mg Documented by: [id number] Methylprednisolone 30 mg/ (Syringe) 0.48 mls @ 1.5 mls/min IV Q8H [facility] Stop: 03/20/20 07:59 Last Admin: 02/20/20 07:57 Dose: 1.5 mls/min Documented by: [id number] Admin: 02/19/20 23:22 Dose: 1.5 mls/min Documented by: [id number] Admin: 02/19/20 17:03 Dose: 1.5 mls/min Documented by: [id number] Admin: 02/19/20 07:53 Dose: 1.5 mls/min Documented by: [id number] Ceftriaxone Sodium 2,000 mg/ (Dextrose) 70 mls @ 100 mls/hr IV Q24H [facility]; Protocol Stop: 02/26/20 05:59 Last Infusion: 02/20/20 08:45 Dose: 0 mls/hr Documented by: [id number] Admin: 02/20/20 08:01 Dose: 100 mls/hr Documented by: [id number] Infusion: 02/19/20 07:28 Dose: 0 mls/hr Documented by: [id number] Admin: 02/19/20 06:22 Dose: 100 mls/hr Documented by: [id number] Lactobacillus Acidoph/Casei/Rhamnos (Advanced Probiotic 1250 Mg Capsule) 2 cap PO TIDM [facility] Stop: 03/20/20 07:59 Last Admin: 02/20/20 07:58 Dose: 2 cap Documented by: [id number] Admin: 02/19/20 17:04 Dose: 2 cap Documented by: [id number] Admin: 02/19/20 12:22 Dose: 2 cap Documented by: [id number] Admin: 02/19/20 07:53 Dose: 2 cap Documented by: [id number] Pantoprazole Sodium (Pantoprazole 40 Mg Tab) 40 mg PO BID [facility] Stop: 03/20/20 08:59 Last Admin: 02/20/20 07:58 Dose: 40 mg Documented by: [id number] Admin: 02/19/20 21:11 Dose: 40 mg Documented by: [id number] Admin: 02/19/20 07:55 Dose: 40 mg Documented by: [id number] Tamsulosin HCl (Tamsulosin Hcl 0.4 Mg Cap) 0.4 mg PO HS [facility] Stop: 03/20/20 20:59 Last Admin: 02/19/20 21:10 Dose: 0.4 mg Documented by: [id number] Discontinued Medications Albuterol (Albut/Ipratrop 3mg/0.5mg Neb 3 Ml Vial) 3 ml INH NOW STA Stop: 02/19/20 01:16 Last Admin: 02/19/20 01:31 Dose: 3 ml Documented by: [id number] Albuterol (Albut/Ipratrop 3mg/0.5mg Neb 3 Ml Vial) 12 ml NEB ONE ONE Stop: 02/19/20 02:16 Last Admin: 02/19/20 02:34 Dose: 12 ml Documented by: [id number] Cefepime HCl (Cefepime 2,000 Mg/20 Ml Vial) Confirm Administered Dose 2,000 mg .ROUTE .STK-MED ONE Stop: 02/19/20 01:32 Last Admin: 02/19/20 01:47 Dose: 2,000 mg Documented by: [id number] Dexamethasone (Dexamethasone Sod Inj 10 Mg/Ml Vial) 6 mg IV NOW ONE Stop: 02/19/20 01:16 Last Admin: 02/19/20 01:47 Dose: 6 mg Documented by: [id number] Cefepime HCl 2,000 mg/ Syringe 20 mls @ 5 mls/min IV NOW STA; Protocol Stop: 02/19/20 01:18 Last Admin: 02/19/20 01:48 Dose: Not Given Documented by: [id number] Azithromycin 500 mg/ Dextrose 255 mls @ 125 mls/hr IV Q24H [facility] Stop: 02/22/20 07:59 Last Infusion: 02/19/20 10:07 Dose: 0 mls/hr Documented by: [id number] Admin: 02/19/20 07:57 Dose: 125 mls/hr Documented by: [id number] Lactated Ringer's (Lr) 1,000 mls @ 80 mls/hr IV .[id number] [facility] Stop: 03/20/20 05:24 Last Infusion: 02/19/20 14:18 Dose: 0 mls/hr Documented by: [id number] Admin: 02/19/20 06:54 Dose: 80 mls/hr Documented by: [id number] Critical Care Time Critical Care Time: Yes I have personally spent greater than 32 minutes of critical care time in the direct management of this patient. This includes bedside care, interpretation of diagnostic studies, and testing, discussion with consultants, patient, and family members, and other required patient management activities. This 32 minutes is in excess of all separately billable procedures. Medical Decision Making Differential Diagnosis Reactive airway disease, pneumonia, pneumothorax, COPD, CHF, infections, cardiac ischemia, pulmonary embolism, musculoskeletal, gastrointestinal, as well as other pathologies. Medical Records Attestation: I reviewed the patient's medical records. Home Medications Current Medication List: was personally reviewed by me Laboratory Data Attestation: I reviewed the patient's lab results. Result diagrams: 02/19/20 01:15 02/19/20 01:15 Lab Results 02/19/20 02/19/20 02/19/20 Range/Units 01:15 01:15 01:15 WBC 12.94 H (4.8-10.8) K/uL RBC 3.72 L (4.7-6.1) M/uL Hgb 11.3 L (14.0-18.0) g/dL Hct 35.3 L (42-52) % MCV 94.9 (80-100) fL MCH 30.4 (25-34) pg MCHC 32.0 (32-36) g/dL RDW Std Deviation 51.6 H (36.4-46.3) fL RDW Coeff of Syl 14.9 H (11.5-14.5) % Plt Count 211 (130-400) K/uL MPV 10.5 H (7.4-10.4) fL Immature Gran % (Auto) 0.2 % Neut % (Auto) 86.6 % Lymph % (Auto) 3.9 % Pickett % (Auto) 7.7 % Eos % (Auto) 1.3 % Baso % (Auto) 0.3 % Neut # (Auto) 11.21 H (1.4-6.5) K/uL Lymph # (Auto) 0.50 L (1.2-3.4) K/uL Pickett # (Auto) 0.99 H (0.11-0.59) K/uL Eos # (Auto) 0.17 (0-0.5) K/uL Baso # (Auto) 0.04 (0-0.2) K/uL Immature Gran # (Auto) 0.03 H (0.00-0.02) K/uL PT 10.3 (9.0-12.0) Seconds INR 1.0 (0.9-1.1) APTT 26.3 (21.0-31.0) Seconds PTT Ratio 0.9 Sodium 142 (136-145) mmol/L Potassium 3.6 (3.5-5.1) mmol/L Chloride 109 H (98-107) mmol/L Carbon Dioxide 28 (21-32) mmol/L Anion Gap 5.0 (3-11) BUN 23 H (7-18) mg/dl Creatinine 1.02 (0.6-1.4) mg/dl Est Cr Clr Drug Dosing 51.7 ml/min Est GFR ( Amer) 76.8 Est GFR (Non-Af Amer) 66.2 BUN/Creatinine Ratio 22.2 H (10-20) Glucose 118 H (70-99) mg/dl Lactate (0.4-2.0) mmol/L Calcium 9.1 (8.5-10.1) mg/dl Magnesium 2.1 (1.8-2.4) mg/dl Total Bilirubin 0.5 (0.2-1) mg/dl AST 21 (15-37) U/L ALT 32 (12-78) U/L Alkaline Phosphatase 73 (45-117) U/L Troponin I 0.020 (0-0.045) ng/ml NT-Pro-B Natriuret Pep 188 (0-1800) pg/ml Total Protein 7.0 (6.4-8.2) gm/dl Albumin 3.5 (3.4-5.0) gm/dl Globulin 3.5 (2.5-4.0) gm/dl Albumin/Globulin Ratio 1.0 (0.9-2) Adenovirus (PCR) (NotDetected) B. pertussis DNA (PCR) (NotDetected) B.parapertussis DNA PCR (NotDetected) C. pneumoniae DNA (PCR) (NotDetected) Coronavirus OC43 (PCR) (NotDetected) Coronavirus HKU1 (PCR) (NotDetected) Coronavirus 229E (PCR) (NotDetected) COVID-19 PCR (NotDetected) Coronavirus NL63 (PCR) (NotDetected) Human Metapneumovir PCR (NotDetected) Influenza Type A (PCR) (NotDetected) Influenza Type B (PCR) (NotDetected) M. pneumoniae (PCR) (NotDetected) Parainfluenza 1 (PCR) (NotDetected) Parainfluenza 2 (PCR) (NotDetected) Parainfluenza 3 (PCR) (NotDetected) Parainfluenza 4 (PCR) (NotDetected) RSV (PCR) (NotDetected) Entero/Rhino (PCR) (NotDetected) 02/19/20 02/19/20 Range/Units 01:15 01:23 WBC (4.8-10.8) K/uL RBC (4.7-6.1) M/uL Hgb (14.0-18.0) g/dL Hct (42-52) % MCV (80-100) fL MCH (25-34) pg MCHC (32-36) g/dL RDW Std Deviation (36.4-46.3) fL RDW Coeff of Syl (11.5-14.5) % Plt Count (130-400) K/uL MPV (7.4-10.4) fL Immature Gran % (Auto) % Neut % (Auto) % Lymph % (Auto) % Pickett % (Auto) % Eos % (Auto) % Baso % (Auto) % Neut # (Auto) (1.4-6.5) K/uL Lymph # (Auto) (1.2-3.4) K/uL [place]ett # (Auto) (0.11-0.59) K/uL Eos # (Auto) (0-0.5) K/uL Baso # (Auto) (0-0.2) K/uL Immature Gran # (Auto) (0.00-0.02) K/uL PT (9.0-12.0) Seconds INR (0.9-1.1) APTT (21.0-31.0) Seconds PTT Ratio Sodium (136-145) mmol/L Potassium (3.5-5.1) mmol/L Chloride (98-107) mmol/L Carbon Dioxide (21-32) mmol/L Anion Gap (3-11) BUN (7-18) mg/dl Creatinine (0.6-1.4) mg/dl Est Cr Clr Drug Dosing ml/min Est GFR ( Amer) Est GFR (Non-Af Amer) BUN/Creatinine Ratio (10-20) Glucose (70-99) mg/dl Lactate 0.9 (0.4-2.0) mmol/L Calcium (8.5-10.1) mg/dl Magnesium (1.8-2.4) mg/dl Total Bilirubin (0.2-1) mg/dl AST (15-37) U/L ALT (12-78) U/L Alkaline Phosphatase (45-117) U/L Troponin I (0-0.045) ng/ml NT-Pro-B Natriuret Pep (0-1800) pg/ml Total Protein (6.4-8.2) gm/dl Albumin (3.4-5.0) gm/dl Globulin (2.5-4.0) gm/dl Albumin/Globulin Ratio (0.9-2) Adenovirus (PCR) Not Detected (NotDetected) B. pertussis DNA (PCR) Not Detected (NotDetected) B.parapertussis DNA PCR Not Detected (NotDetected) C. pneumoniae DNA (PCR) Not Detected (NotDetected) Coronavirus OC43 (PCR) Not Detected (NotDetected) Coronavirus HKU1 (PCR) Not Detected (NotDetected) Coronavirus 229E (PCR) Not Detected (NotDetected) COVID-19 PCR Not Detected (NotDetected) Coronavirus NL63 (PCR) Not Detected (NotDetected) Human Metapneumovir PCR Not Detected (NotDetected) Influenza Type A (PCR) Not Detected (NotDetected) Influenza Type B (PCR) Not Detected (NotDetected) M. pneumoniae (PCR) Not Detected (NotDetected) Parainfluenza 1 (PCR) Not Detected (NotDetected) Parainfluenza 2 (PCR) Not Detected (NotDetected) Parainfluenza 3 (PCR) Not Detected (NotDetected) Parainfluenza 4 (PCR) Not Detected (NotDetected) RSV (PCR) Not Detected (NotDetected) Entero/Rhino (PCR) Not Detected (NotDetected) Imaging Data Attestation: I personally reviewed and interpreted this imaging study as follows: My Impression: CXR to my interpretation reveals changes c/w COPD, consolidation RLL field. ECG Data Attestation: I personally reviewed and interpreted this ECG as follows: Indication: + SOB/dyspnea Rate (beats per minute): 100 Rhythm: + normal sinus ECG Intervals/blocks: + Normal QT-c (100) ECG [place]: + Left axis deviation ECG ST segments: + Normal ST segments ECG Findings: + Other (artifact interferes with interpretation. No ectopy.) Blood Pressure Blood Pressure Findings: Elevated blood pressure Blood Pressure Disposition: further management by hospitalist MDM Narrative This pt was evaluated and appeared to be in no distress. IV access was obtained and lab work was drawn. An order for cardiac monitoring was placed and the pt w as noted to be in a ST at 102 bpm. A duoneb tx was ordered and pt was placed on bipap when he became fatigued an became hypoxic on n/c at 5 L pm. He was given 6 mg IV dexamethasone. CXR reveals concerns for PNA and after blood cx were sent pt was given cefepime. Biofire is negative for COVID and flu. Case was d/w the hospitalist service who will evaluate for further management. Impression & Plan Acute respiratory failure with hypoxemia, Pneumonia Discharge Plan Visit Data Chief Complaint: Shortness of Breath/Dyspnea ED Provider: Nivia Lowe Discharge Problem: Acute respiratory failure with hypoxemia, Pneumonia Patient Disposition: Admitted As Inpatient Discharge Instructions Interventions: ED Discharge Assessment Last Done: 02/19/20 04:45 Discharge Problem: Pneumonia Qualifiers: Pneumonia type: due to unspecified organism Laterality: right Lung location: lower lobe of lung Qualified Code(s): J18.9 - Pneumonia, unspecified organism
--- NOTE | 2020-02-19 08:43 | XRay Report ---
XR chest 1V portable HISTORY: Dyspnea COMPARISON: Chest CT 05/03/2018. Chest x-ray 04/23/2018. FINDINGS: Severe emphysema. No pneumothorax. Stable blunting of the costophrenic sulci which may be d ue to the hyperexpanded lungs. The heart is normal in size. Calcified granuloma within the left upper lobe, unchanged. Bibasilar interstitial thickening and a few faint patchy airspace opacities within the lung bases. This may represent a pneumonia possibly secondary to aspiration. IMPRESSION: 1. Bibasilar interstitial thickening and a few faint patchy airspace opacities within the lung bases. This may represent a pneumonia, possibly secondary to aspiration. 2. Severe emphysema. ACT 112: Negative or not required by law. Electronically signed by: Jeremias Swartz M.D. 02/19/2020 8:41 AM
[2020-02-19 10:46] LABS: Appearance Urine Clear (Clear); Bacteria Urine Automated Negative (Negative); Bilirubin Urine Negative (Negative); Blood Urine Negative (Negative); Color Urine Yellow; Glucose Urine UA Negative (Negative); Ketones Urine 2+ (Negative); Leukocyte Esterase Urine Negative (Negative); Nitrite Urine Negative (Negative); Protein Urine Trace (Negative); RBC Urine Automated 0-4 /hpf (0-4); Specific Gravity Urine 1.021 (1.000-1.030); Urobilinogen Urine Negative (Negative)
--- NOTE | 2020-02-19 14:07 | History & Physical Bridge Note ---
Date of Service February 19, 2020 History & Physical Bridge Note I have examined the patient, reviewed the History & Physical and in the interval since the performance of the History & Physical I have noted the following changes of clinical significance: Pt seen in the afternoon, feeling MUCH better he says. Denies SOB or cough. Is weaned down to 3LNC and is on 2LNC at home. VSS NAD, AAOx3 RRR no mgr Lungs diminished throughout, some crackles right lower and mid lung doran Abd large hernia,soft, colostomy with gas in it Ext no edema 84 yo male here with COPD exacerbation, acute on chronic resp failure with hypoxia, and CAP continue steroids, abx, nebs, O2 dc IVFs
[2020-02-19] MEDS: ALBUT/IPRATROP 3MG/0.5MG NEB 3 ML VIAL NEB SCH ×2 (16:20→19:08)
--- NOTE | 2020-02-19 16:42 | Electrocardiogram Report ---
Test Reason : Blood Pressure : / mmHG Vent. Rate : 100 BPM Atrial Rate : 100 BPM P-R Int : 150 ms QRS Dur : 090 ms QT Int : 314 ms P-R-T Axes : 080 -34 079 degrees QTc Int : 405 ms Poor data quality, interpretation may be adversely affected Normal sinus rhythm Left axis deviation Abnormal ECG When compared with ECG of 23-APR-2018 18:22, T wave inversion less evident in Lateral leads Confirmed by Mateus Boateng ([id number]) on 02/19/2020 4:41:28 PM Referred By: REFERRED SELF Confirmed By:Enrrique Boateng
[2020-02-19] MEDS ORDERED: TAMSULOSIN HCL 0.4 MG CAP PO SCH (21:00)
[2020-02-20] MEDS: ALBUT/IPRATROP 3MG/0.5MG NEB 3 ML VIAL NEB SCH ×2 (07:20→12:18)
[2020-02-20] MEDS: methylPREDNISolone 30 MG in SYRINGE 0 ML IV SCH (07:57)
[2020-02-20] MEDS: guaiFENesin 600 MG TABCR PO SCH (07:57)
[2020-02-20] MEDS: PANTOprazole 40 MG TAB PO SCH (07:58)
[2020-02-20] MEDS: amLODIPine BESYLATE 5 MG TAB PO SCH (07:58)
[2020-02-20] MEDS: FINASTERIDE 5 MG TAB PO SCH (07:58)
[2020-02-20] MEDS: ADVANCED PROBIOTIC 1250 MG CAPSULE PO SCH ×2 (07:58→12:01)
[2020-02-20] MEDS: FLUTICASONE/VILANTEROL 200/25MCG 14 PUFFS/INHALER INH SCH (07:58)
[2020-02-20] MEDS: FERROUS SULFATE 325 MG TAB PO SCH (07:58)
[2020-02-20] MEDS: ENOXAPARIN INJ 40 MG/0.4 ML SYR SQ SCH (07:59)
[2020-02-20] MEDS: cefTRIAXone SODIUM 2,000 MG in DEXTROSE 5% 50 ML IV SCH (08:01)
[2020-02-20] MEDS ORDERED: AZITHROMYCIN 250 MG TAB PO SCH (09:00)
--- NOTE | 2020-02-20 13:35 | Discharge Summary ---
Date of Service February 20, 2020 Admission HPI Per Admitting Provider Ford Kumari is an 84-year-old male with a past medical history of hyperparathyroidism, pneumoperitoneum, colostomy, GERD, COPD, hypertension, and abdominal aortic aneurysm who presents for evaluation of shortness of breath and dyspnea and he was found to have a leukocytosis on arrival to the ER. Ford reports he has been having increased shortness of breath and difficulty breathing for 1 to 2 weeks. He feels he has a nonproductive cough with a little wheezing. He has not had fever, chills, night sweats. He has not had any sick contacts. His cough is not productive. He had a similar presentation with pneumonia several months ago. He has not had any abdominal pain, nausea, vomiting, change in ostomy output. No new swelling in the legs. He lives at home with his and grandchildren. He has remote tobacco use, none in many years. Denies alcohol and recreational drug use. He is not a good historian of his medications, and reports that his memory is poor. He does not think he has tried any attempted treatments for his current difficulty breathing, and thinks he took his medications this morning. They are mostly managed by his granddaughter Tena. He has a extremely large abdominal hernia which he reports has not changed. He has a left upper chest subcutaneous mobile density which she reports he does not know what it is but is been there for many years, denies a history of cancer. It is not tender. Medications: Reviewed Medical history: Reviewed Surgical history: Reviewed Family history: Reviewed, noncontributory Allergies: Reviewed, agitation to morphine Social: See above, no tobacco use, lives with and grandchildren. CODE STATUS full code Principal Diagnosis Sepsis, POA Community-acquired pneumonia Acute on chronic respiratory failure with hypoxia COPD exacerbation Discharge Exam Constitutional + thin; no acute distress Eyes + anicteric sclerae Neck trachea midline, no thyromegaly Respiratory normal respiratory effort Auscultation: + diminished lung sounds (Throughout), + crackles (At right base) and + wheezes (A few scattered expiratory wheezes) Cardiovascular RRR, no murmur, no edema Chest (Breasts) Chest: normal inspection of chest Gastrointestinal (Abdomen) normal bowel sounds, soft, nontender, no hepatosplenomegaly (Large ventral hernia that is soft and nontender, colostomy in place) Musculoskeletal Extremities: extremities normal to inspection; no cyanosis and no clubbing Skin no rashes, warm and dry Neurologic moves all extremities and awake; no focal motor deficits Psychiatric A+Ox3, euthymic affect Lymphatic no lymphedema Discharge Data Allergies Allergy/AdvReac Type Severity Reaction Status Date / Time morphine AdvReac Severe Agitated Verified 02/19/20 01:37 Consultations 02/19/20 03:09 ED Decision to Admit Stat Ordered Studies Chest x-ray Hospital Course (1) Pneumonia: Ford Kumari is an 84-year-old male with a past medical history of hyperparathyroidism, pneumoperitoneum, colostomy, GERD, COPD, hypertension, and abdominal aortic aneurysm who presents for evaluation of shortness of breath and dyspnea and he was found to have a leukocytosis on arrival to the ER. Presented with sepsis, POA, right lower lobe pneumonia, and acute on chronic respiratory failure with hypoxia as well as COPD exacerbation Acute hypoxic respiratory failure 2/2 Right lower lobe pneumonia +/- RLL pna Leukocytosis to 12.94 on admission Tachycardic, afebrile on admission Patient initially stable on nasal cannula, per ED provider hypoxia to the 80s and worsening work of breathing requiring escalation to nonrebreather and BiPAP. Patient clinically improved on BiPAP and was quickly weaned back down to 2 L nasal cannula over the next 24 hours Bio fire negative, Covid not detected Blood cultures "no growth to date at almost 48-hour manjeet Received cefepime and dexamethasone in emergency department and was converted to ceftriaxone and azithromycin-we will finish her course of cefdinir and azithromycin as an outpatient Continue prednisone burst as an outpatient for COPD exacerbation Very stable and ready for discharge on hospital day #2 There was a question of aspiration pneumonia on x-ray-he does not seem to have any issues with this. 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 of discharge Follow chest x-ray to resolution as an outpatient COPD exacerbation Continue Advair 250/50 1 puff twice daily Continue bronchodilators Azithromycin as above IV Solu-Medrol was provided convert to prednisone burst as an outpatient Hypertension Hypertensive on admission which resolved Continue amlodipine 10 mg daily Abdominal aortic aneurysm Last follow-up ultrasound 06/21/2017 showed stable focal aneurysm with prior CT noting a diameter of 3.5 cm, patient had declined follow-up at subsequent out patient visits Elevated PSA, prostate nodule Patient with elevated PSA (1.7 in 2017) and nodule noted on CT scan, was not pursuing aggressive work-up as outpatient Colostomy Patient with 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 CODE STATUS: Full code Disposition: Stable for discharge to home (2) Sepsis: Sepsis, POA (3) Fever: (4) Anemia: (5) History of hyperparathyroidism: (6) Community acquired pneumonia: (7) Abdominal aortic aneurysm: (8) GERD (gastroesophageal reflux disease): Total Time Total Time Spent Total Time Spent (In Minutes): 35 minutes Total Time Includes: Examination of the Patient, Discharge Planning and Medication Reconciliation Discharge Plan Discharge Items Patient Disposition: Home - Self-Care Reason For Visit: HYPOXIC RESPIR. FAILURE, COPD EXACERBATION V PNA Discharge Diagnosis: Acute on chronic respiratory failure with hypoxia, pneumonia, COPD exacerbation Condition on Discharge: Good Activity: Resume your previous activity Non-emergency contact: Primary Care Provider Call non-emergency contact if: you have any medication questions, your symptoms worsen and you have a fever Follow-up/Referrals: Pablo Boyd MD [Primary Care Provider] - 02/25/20 2:00 pm (Please follow-up within 1 week after discharge) Diet: Heart Healthy Addtl Attending Provider Instructions: Please finish out the course of antibiotics for pneumonia and the prednisone for your COPD exacerbation. Follow-up with your primary care physician within 1 week after discharge. Unfortunately, the hospital does not have any of the high-dose flu shots for you and you should keep your already scheduled appointment for your flu shot with your doctors office as scheduled. Pending Studies at Discharge: Yes Stand-Alone Forms: My [facility] Medications and DC Order Prescriptions: New azithromycin 250 mg Tablet 250 mg PO QAM Qty: 3 RF: 0 cefdinir 300 mg capsule 300 mg PO BID 5 Days Qty: 10 RF: 0 prednisone 20 mg tablet 40 mg PO DAILY 5 Days Qty: 10 RF: 0 Continued finasteride 5 mg tablet 5 mg PO DAILY Qty: 90 RF: 3 amlodipine 10 mg tablet 10 mg PO DAILY Qty: 90 RF: 1 tamsulosin 0.4 mg capsule 0.4 mg PO HS Qty: 90 RF: 3 fluticasone propion-salmeterol [Advair Diskus] 250-50 mcg/dose blister with device 1 inh INHALATION BID Qty: 60 RF: 5 guaifenesin 600 mg tablet extended release 12hr 600 mg PO BID Qty: 60 RF: 0 PreserVision AREDS-2 991-531-60-1 xs-azvc-hi-mg capsule 1 tab PO ONCE Qty: 30 RF: 0 ipratropium-albuterol 0.5 mg-3 mg(2.5 mg base)/3 mL solution for nebulization 3 ml inhalation Q6H PRN (Reason: wheezing) Qty: 90 RF: 0 pantoprazole 40 mg tablet,delayed release (DR/EC) 40 mg PO BID Qty: 60 RF: 5 cholecalciferol (vitamin D3) [Vitamin D3] 50 mcg (2,000 unit) capsule 2,000 unit PO DAILY Qty: 90 RF: 1 ferrous sulfate [iron] 325 mg (65 mg iron) Tablet 325 mg PO UD RF: 0 docusate sodium 100 mg Capsule 200 mg PO BID RF: 0 Saccharomyces boulardii [Florastor] 250 mg Capsule 250 mg PO UD RF: 0 Centrum Silver 0.4-300-250 mg-mcg-mcg Tablet 1 tab PO DAILY RF: 0 Combivent Respimat 20-100 mcg/actuation mist 1 puff INHALATION QID RF: 0 Discharge Orders: Discharge Order (Routine); Ordered 02/20/20 Ordered By: Janel Rascon Admission Data Admit Date/Time: 02/19/20 03:50 Attending Provider: Janel Rascon Admit Provider: Ford Limon Primary Care Provider: Pablo Boyd Other Providers: Darsahna Cooper Coding Level of Care Code D/C Day Management >30 mins Diagnoses Pneumonia J18.9 Laterality: right Lung location: lower lobe of lung Pneumonia type: due to unspecified organism Sepsis A41.9 Fever R50.9 Fever type: unspecified Anemia D64.9 History of hyperparathyroidism Z86.39 Community acquired pneumonia J18.9 Abdominal aortic aneurysm I71.4 GERD (gastroesophageal reflux disease) K21.9
[2020-02-21] MEDS ORDERED: ADVANCED PROBIOTIC 1250 MG CAPSULE PO SCH (09:00)
== END 2020-02-20 14:34 | disposition home or self-care (01) | DRG 871 ==
LOC: ED 00:54 → 2E 03:50 → SUATTDRO 03:50 → 2E 04:45

== ENCOUNTER 2021-02-11 14:15 | Inpatient (IN) ==
[2021-02-11] MEDS ORDERED: SODIUM CHLORIDE 0.9% 1000ML 1,000 ML IV SCH (14:24)
[2021-02-11] MEDS ORDERED: methylPREDNISolone 125 MG/2 ML VIAL IV STA (14:25)
[2021-02-11] MEDS ORDERED: ALBUT/IPRATROP 3MG/0.5MG NEB 3 ML VIAL NEB STA (14:25)
[2021-02-11] MEDS ORDERED: guaiFENesin 600 MG TABCR PO STA (14:25)
--- NOTE | 2021-02-11 14:42 | Emergency Department Note ---
Impression & Plan Pneumonia, SIRS (systemic inflammatory response syndrome), UTI (urinary tract infection) ED Provider Note NAME: KAMI LABOY Jr AGE: 85 SEX: M ARRIVES VIA: Ambulance INFORMANT: Patient, ED PROVIDER(S): Devin Fernandez MD CHIEF COMPLAINT: Weakness, shortness of breath. PLAN: Disposition: Admit MEDICAL DECISION MAKING: The patient is a pleasant 85-year-old gentleman with past medical history of hyperparathyroidism, pneumoperitoneum, colostomy, GERD, hypertension, AAA, COPD on 2 L home O2 presents to the emergency department from his home where he lives in the basement of his grandsons home with his , for worsening malaise generalized weakness, cough, congestion shortness of breath for the past several days. Upon EMS arrival patient was found to be at 89% on his home 2 L nasal cannula. His lung sounds were noted to be rhonchorous. Patient is a poor historian but admits that he just has not felt well and has felt short of breath. Patient denies any known COVID-19 exposures. He reports he does not leave the house. He is not vaccinated for COVID-19. He admits and it was reported that he has not been eating or drinking well. There is no report of fevers, nausea, vomiting, diarrhea or urinary symptoms. On arrival the patient is acute on chronic ill-appearing but no acute distress, febrile to 38.0, heart rate in the 100s and vital signs otherwise stable. He appears clinically dry and cachectic. He has rhonchi with underlying wheezes of bilateral lung doran. He has a large anterior ventral wall hernia that bulges when he coughs and otherwise is soft and nontender. EKG without overt acute ischemia. CXR is suggestive aspiration pna. WBC 24K with left shift. Platelets wnl. H/H similar to prior. Chemistry without acidosis. BUN/Cr > 30 c/w patient's clinically dry appearance. Electrolytes unremarkable. LFTs without significant abnormality. Troponin negative/undetectable. BNP wnl. Lipase wnl. Procalcitonin 0.69. UA is suspicious for infection. Upon re-evaluation the patient did feel some improvement following IVF hydration, Solumedrol, Duoneb, guaifenesin, and empiric Zosyn. Patient and grand-daughter agree with plan for admission for continued management. Case was discussed with Dr. Limon, [facility] hospitalist, who will evaluate the patient for admission. Triage Nursing notes reviewed and agree them. Prior medical records reviewed Vital Signs: reviewed and remarkable for fever and tachycardia. Differential diagnosis: Infection, dehydration, metabolic abnormality, hypo/hyperglycemia, electrolyte disturbance, anemia, hypoxia, cardiac sources, intracerebral event, toxicologic, neurologic, as well as other pathologies. ER treatment provided: See below. Diagnostics interpreted by me: ECG: Sinus tachycardia, 112 bpm, no ectopy, nonspecific TWA, no overt ST elevation or depression. Cardiac Monitoring: An order for continuous cardiac monitoring was placed and demonstrated sinus tachycardia, 110 bpm, no ectopy. Laboratory studies: See below Imaging studies: See below Consultation(s): Case was discussed with Dr. Limon, [facility] hospitalist, who will evaluate the patient for admission. HPI: The patient is a pleasant 85-year-old gentleman with past medical history of hyperparathyroidism, pneumoperitoneum, colostomy, GERD, hypertension, AAA, COPD on 2 L home O2 presents to the emergency department from his home where he lives in the basement of his grandsons home with his , for worsening malaise generalized weakness, cough, congestion shortness of breath for the past several days. Upon EMS arrival patient was found to be at 89% on his home 2 L nasal cannula. His lung sounds were noted to be rhonchorous. Patient is a poor historian but admits that he just has not felt well and has felt short of breath. Patient denies any known COVID-19 exposures. He reports he does not leave the house. He is not vaccinated for COVID-19. He admits and it was reported that he has not been eating or drinking well. There is no report of fevers, nausea, vomiting, diarrhea or urinary symptoms. ROS: See above HPI for pertinent positives & negatives. A total of 10 systems reviewed and were otherwise negative. PAST MEDICAL HISTORY:See Below PAST SURGICAL HISTORY:See Below FAMILY HISTORY:See Below SOCIAL HISTORY:See Below HOME MEDICATIONS:See Below ALLERGIES:See Below VITALS:See Below PHYSICAL EXAMINATION: GENERAL: Awake, alert, acute on chronically ill-appearing, in no distress HENT: Normocephalic, atraumatic. Oropharynx dry mucous membranes. EYES: Normal conjunctiva. Sclera non-icteric. NECK: Supple. No nuchal rigidity. FROM. No JVD. RESPIRATORY: Rhonchi with underlying wheeze of bilateral lung doran. CARDIAC: Regular rate, normal rhythm. Extremities warm and well perfused. Pulses equal. ABDOMEN: Soft, non-distended. No tenderness to palpation. No rebound or gua rding. No masses. RECTAL: Deferred. MUSCULOSKELETAL: Chest examination reveals no tenderness. The back is symmetrical on inspection without obvious abnormality. There is no CVA tenderness to palpation. No joint edema. LOWER EXTREMITIES: Calves are equal size bilaterally and non-tender. No edema. No discoloration. NEURO: Normal sensorium. No sensory or motor deficits noted. SKIN: No rash or jaundice noted. ED COURSE: Critical Care: I have personally spent greater than 35 minutes of critical care time in the direct management of this patient. This includes bedside care, interpretation of diagnostic studies, and testing, discussion with consultants, patient, and family members, and other required patient management activities. This 35 minutes is in excess of all separately billable procedures. Devin Fernandez MD Past Med/Surg History Medical History Colostomy complication Colostomy complication COPD (chronic obstructive pulmonary disease) Hyperparathyroidism Hypertension Pneumonia Pneumoperitoneum Sepsis Surgical History History of colon resection Family History Denies family history of Ovarian cancer Prostate cancer Myocardial infarction Breast cancer Colorectal cancer Social History Smoking Status: Former smoker Tobacco Type: Cigarettes Age Started Using Tobacco: 19; Age Quit Using Tobacco: 23; packs per day: 0.5; Second Hand Exposure: No; Hx Alcohol Use: No Hx Substance Use: No Preferred Language: Divehi Communication Ability: Effective Visual Impairment: No Limitations Hearing Ability: Normal Weed Eradicator Required: No Beliefs That Will Affect Care: None marital status: Current Living Situation: Spouse and Family Current Living Situation Comment: and grandchilren current occupational status: retired 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 Feels Safe at Home: Yes Childhood Exposure to Second-Hand Smoke: Yes Dental Care, Regularly: No Physical Activity Frequency: Does not Exercise Seatbelt Use: always Sunscreen Use: No Assistive Devices: Walker Allergies Allergies Allergy/AdvReac Type Severity Reaction Status Date / Time morphine AdvReac Severe Agitated Verified 02/11/21 15:31 Home Meds Home Medications Medication Instructions Recorded Confirmed Saccharomyces boulardii 250 mg 250 mg PO UD 04/23/18 02/11/21 capsule (Florastor) docusate sodium 100 mg capsule 200 mg PO BID 04/23/18 02/11/21 ferrous sulfate 325 mg (65 mg 325 mg PO UD 04/23/18 02/11/21 iron) tablet (iron) pfraqlrm-[id number]-[id number] acid 0.4 1 tab PO DAILY 04/23/18 02/11/21 mg-lycopene 300 mcg-lutein 250 mcg tablet (Centrum Silver) calcium carbonate 400 mg calcium 400 mg PO BID tab 07/07/20 02/11/21 (1,000 mg) chewable tablet (Tums Ultra) Previous Rx's Medication Instructions Recorded guaifenesin 600 mg tablet, 600 mg PO BID #60 tab 12/05/19 extended release 12 hr ipratropium 0.5 mg-albuterol 3 mg 3 ml INHALATION Q6H PRN #90 ml 12/05/19 (2.5 mg base)/3 mL nebulization soln tamsulosin 0.4 mg capsule 0.4 mg PO HS #90 cap 04/29/20 fluticasone 250 mcg-salmeterol 50 1 inh INHALATION BID #60 ea 05/10/20 mcg/dose blistr powdr for inhalation (Advair Diskus) finasteride 5 mg tablet 5 mg PO DAILY #90 tab 05/11/20 calcitriol 0.25 mcg capsule 0.25 mcg PO DAILY #30 cap 07/08/20 ostomy supplies #1 ea 08/04/20 ipratropium 20 mcg-albuterol 100 1 puff INHALATION QID #4 g 09/06/20 mcg/actuation mist for inhalation (Combivent Respimat) amlodipine 10 mg tablet 10 mg PO DAILY #90 tab 09/27/20 pantoprazole 40 mg tablet,delayed 40 mg PO BID #60 tab 01/06/21 release Results & Data (ED) Vital Signs Vital Signs - 24 hr 02/11/21 14:25 02/11/21 15:07 02/11/21 15:34 Temperature 38.1 C H Temperature Source Oral Pulse Rate 112 H 98 H Pulse Rate [Left Finger] 117 H Pulse Rate from SpO2 Sensor 94 H Pulse Rhythm Regular Pulse Strength Normal Respiratory Rate 25 H 20 19 Respiratory Effort / Characteristics Non-Labored Spontaneous Respiratory Depth Normal Respiratory Pattern Regular Blood Pressure 173/104 H Blood Pressure Mean 127 Blood Pressure Position Sitting Pulse Oximetry 94 94 96 Oxygen Delivery Method Nasal Cannula Nasal Cannula Nasal Cannula Oxygen Flow Rate 2 2 2 Sepsis Recent Fever Within 48 Hours Yes Sepsis New/Unexplained Change in Mental Status N/A Sepsis Action Taken by Nursing Physician Notified 02/11/21 16:00 02/11/21 16:11 02/11/21 16:30 Temperature 37.3 C Temperature Source Oral Pulse Rate 92 H 87 Pulse Rate [Left Finger] Pulse Rate from SpO2 Sensor 93 H 87 Pulse Rhythm Pulse Strength Respiratory Rate 25 H 26 H Respiratory Effort / Characteristics Respiratory Depth Respiratory Pattern Blood Pressure 158/81 H 160/79 H Blood Pressure Mean 106 106 Blood Pressure Position Pulse Oximetry 97 95 Oxygen Delivery Method Nasal Cannula Nasal Cannula Oxygen Flow Rate 2 2 Sepsis Recent Fever Within 48 Hours Sepsis New/Unexplained Change in Mental Status Sepsis Action Taken by Nursing 02/11/21 17:00 02/11/21 17:30 02/11/21 18:00 Temperature Temperature Source Pulse Rate 81 91 H 83 Pulse Rate [Left Finger] Pulse Rate from SpO2 Sensor 76 91 H 83 Pulse Rhythm Pulse Strength Respiratory Rate 23 25 H 25 H Respiratory Effort / Characteristics Respiratory Depth Respiratory Pattern Blood Pressure 156/71 H 165/81 H 150/78 H Blood Pressure Mean 99 109 102 Blood Pressure Position Pulse Oximetry 92 93 91 Oxygen Delivery Method Nasal Cannula Nasal Cannula Nasal Cannula Oxygen Flow Rate 2 2 2 Sepsis Recent Fever Within 48 Hours Sepsis New/Unexplained Change in Mental Status Sepsis Action Taken by Nursing 02/11/21 18:30 02/11/21 19:00 Temperature Temperature Source Pulse Rate 87 82 Pulse Rate [Left Finger] Pulse Rate from SpO2 Sensor 84 81 Pulse Rhythm Pulse Strength Respiratory Rate 22 28 H Respiratory Effort / Characteristics Respiratory Depth Respiratory Pattern Blood Pressure 138/88 150/78 H Blood Pressure Mean 104 102 Blood Pressure Position Pulse Oximetry 92 95 Oxygen Delivery Method Nasal Cannula Nasal Cannula Oxygen Flow Rate 2 2 Sepsis Recent Fever Within 48 Hours Sepsis New/Unexplained Change in Mental Status Sepsis Action Taken by Nursing Laboratory Data Attestation: I reviewed the patient's lab results. Result diagrams: 02/11/21 14:59 02/11/21 14:59 Lab Results 02/11/21 02/11/21 02/11/21 Range/Units 14:59 14:59 14:59 WBC 24.38 H (4.8-10.8) K/uL RBC 4.13 L (4.7-6.1) M/uL Hgb 12.2 L (14.0-18.0) g/dL Hct 39.5 L (42-52) % MCV 95.6 (80-100) fL MCH 29.5 (25-34) pg MCHC 30.9 L (32-36) g/dL RDW Std Deviation 49.3 H (36.4-46.3) fL RDW Coeff of Syl 14.1 (11.5-14.5) % Plt Count 295 (130-400) K/uL MPV 10.8 H (7.4-10.4) fL Immature Gran % (Auto) 0.4 % Neut % (Auto) 93.3 % Lymph % (Auto) 2.8 % [place] % (Auto) 3.4 % Eos % (Auto) 0.0 % Baso % (Auto) 0.1 % Neut # (Auto) 22.75 H (1.4-6.5) K/uL Lymph # (Auto) 0.68 L (1.2-3.4) K/uL [place] # (Auto) 0.82 H (0.11-0.59) K/uL Eos # (Auto) 0.01 (0-0.5) K/uL Baso # (Auto) 0.02 (0-0.2) K/uL Immature Gran # (Auto) 0.10 H (0.00-0.02) K/uL Ovalocytes 1+ PT 11.1 (9.0-12.0) Seconds INR 1.1 (0.9-1.1) VBG pH (7.36-7.41) VBG pCO2 (38-50) mmHg VBG pO2 mmHg VBG HCO3 mmol/L VBG O2 Saturation % VBG Base Excess mEq/L Barometric Pressure mm/Hg Sodium 141 (136-145) mmol/L Potassium 4.1 (3.5-5.1) mmol/L Chloride 105 (98-107) mmol/L Carbon Dioxide 32 (21-32) mmol/L Anion Gap 4.0 (3-11) BUN 28 H (7-18) mg/dl Creatinine 0.84 (0.6-1.4) mg/dl Est Cr Clr Drug Dosing 57.0 ml/min Est GFR ( Amer) 91.2 ml/min Est GFR (Non-Af Amer) 78.7 ml/min BUN/Creatinine Ratio 33.4 H (10-20) Glucose 116 H (70-99) mg/dl Lactate (0.4-2.0) mmol/L Calcium 9.4 (8.5-10.1) mg/dl Phosphorus 4.0 (2.5-4.9) mg/dl Magnesium 2.4 (1.8-2.4) mg/dl Total Bilirubin 0.6 (0.2-1) mg/dl AST 18 (15-37) U/L ALT 54 (12-78) U/L Alkaline Phosphatase 134 H (45-117) U/L Troponin I < 0.015 (0-0.045) ng/ml NT-Pro-B Natriuret Pep 554 (0-1800) pg/ml Total Protein 7.1 (6.4-8.2) gm/dl Albumin 3.1 L (3.4-5.0) gm/dl Globulin 4.0 (2.5-4.0) gm/dl Albumin/Globulin Ratio 0.8 L (0.9-2) Lipase 113 (73-393) U/L Procalcitonin (0-0.5) ng/ml Urine Color Urine Appearance (Clear) Urine pH (4.5-7.5) Ur Specific [place] (1.000-1.030) Urine Protein (Negative) Urine Glucose (UA) (Negative) Urine Ketones (Negative) Urine Blood (Negative) Urine Nitrite (Negative) Urine Bilirubin (Negative) Urine Urobilinogen (Negative) Ur Leukocyte Esterase (Negative) Urine WBC (Auto) (0-5) /hpf Urine RBC (Auto) (0-4) /hpf U Hyaline Cast (Auto) (0-5) /lpf U Epithel Cells (Auto) (0-5) /lpf Urine Bacteria (Auto) (Negative) COVID-19 Eval Order SARS-CoV-2 (PCR) (Negative) 02/11/21 02/11/2121 Range/Units 14:59 14:59 15:25 WBC (4.8-10.8) K/uL RBC (4.7-6.1) M/uL Hgb (14.0-18.0) g/dL Hct (42-52) % MCV (80-100) fL MCH (25-34) pg MCHC (32-36) g/dL RDW Std Deviation (36.4-46.3) fL RDW Coeff of Syl (11.5-14.5) % Plt Count (130-400) K/uL MPV (7.4-10.4) fL Immature Gran % (Auto) % Neut % (Auto) % Lymph % (Auto) % [place] % (Auto) % Eos % (Auto) % Baso % (Auto) % Neut # (Auto) (1.4-6.5) K/uL Lymph # (Auto) (1.2-3.4) K/uL [place] # (Auto) (0.11-0.59) K/uL Eos # (Auto) (0-0.5) K/uL Baso # (Auto) (0-0.2) K/uL Immature Gran # (Auto) (0.00-0.02) K/uL Ovalocytes PT (9.0-12.0) Seconds INR (0.9-1.1) VBG pH (7.36-7.41) VBG pCO2 (38-50) mmHg VBG pO2 mmHg VBG HCO3 mmol/L VBG O2 Saturation % VBG Base Excess mEq/L Barometric Pressure mm/Hg Sodium (136-145) mmol/L Potassium (3.5-5.1) mmol/L Chloride (98-107) mmol/L Carbon Dioxide (21-32) mmol/L Anion Gap (3-11) BUN (7-18) mg/dl Creatinine (0.6-1.4) mg/dl Est Cr Clr Drug Dosing ml/min Est GFR ( Amer) ml/min Est GFR (Non-Af Amer) ml/min BUN/Creatinine Ratio (10-20) Glucose (70-99) mg/dl Lactate 1.0 (0.4-2.0) mmol/L Calcium (8.5-10.1) mg/dl Phosphorus (2.5-4.9) mg/dl Magnesium (1.8-2.4) mg/dl Total Bilirubin (0.2-1) mg/dl AST (15-37) U/L ALT (12-78) U/L Alkaline Phosphatase (45-117) U/L Troponin I (0-0.045) ng/ml NT-Pro-B Natriuret Pep (0-1800) pg/ml Total Protein (6.4-8.2) gm/dl Albumin (3.4-5.0) gm/dl Globulin (2.5-4.0) gm/dl Albumin/Globulin Ratio (0.9-2) Lipase (73-393) U/L Procalcitonin 0.69 H (0-0.5) ng/ml Urine Color Urine Appearance (Clear) Urine pH (4.5-7.5) Ur Specific [place] (1.000-1.030) Urine Protein (Negative) Urine Glucose (UA) (Negative) Urine Ketones (Negative) Urine Blood (Negative) Urine Nitrite (Negative) Urine Bilirubin (Negative) Urine Urobilinogen (Negative) Ur Leukocyte Esterase (Negative) Urine WBC (Auto) (0-5) /hpf Urine RBC (Auto) (0-4) /hpf U Hyaline Cast (Auto) (0-5) /lpf U Epithel Cells (Auto) (0-5) /lpf Urine Bacteria (Auto) (Negative) COVID-19 Eval Order Covid19 at [facility] SARS-CoV-2 (PCR) (Negative) 02/11/21 02/11/21 02/11/21 Range/Units 15:25 15:55 17:26 WBC (4.8-10.8) K/uL RBC (4.7-6.1) M/uL Hgb (14.0-18.0) g/dL Hct (42-52) % MCV (80-100) fL MCH (25-34) pg MCHC (32-36) g/dL RDW Std Deviation (36.4-46.3) fL RDW Coeff of Syl (11.5-14.5) % Plt Count (130-400) K/uL MPV (7.4-10.4) fL Immature Gran % (Auto) % Neut % (Auto) % Lymph % (Auto) % [place] % (Auto) % Eos % (Auto) % Baso % (Auto) % Neut # (Auto) (1.4-6.5) K/uL Lymph # (Auto) (1.2-3.4) K/uL [place] # (Auto) (0.11-0.59) K/uL Eos # (Auto) (0-0.5) K/uL Baso # (Auto) (0-0.2) K/uL Immature Gran # (Auto) (0.00-0.02) K/uL Ovalocytes PT (9.0-12.0) Seconds INR (0.9-1.1) VBG pH 7.36 (7.36-7.41) VBG pCO2 55 H (38-50) mmHg VBG pO2 36 mmHg VBG HCO3 30 mmol/L VBG O2 Saturation 66.7 % VBG Base Excess 3.7 mEq/L Barometric Pressure 722.8 mm/Hg Sodium (136-145) mmol/L Potassium (3.5-5.1) mmol/L Chloride (98-107) mmol/L Carbon Dioxide (21-32) mmol/L Anion Gap (3-11) BUN (7-18) mg/dl Creatinine (0.6-1.4) mg/dl Est Cr Clr Drug Dosing ml/min Est GFR ( Amer) ml/min Est GFR (Non-Af Amer) ml/min BUN/Creatinine Ratio (10-20) Glucose (70-99) mg/dl Lactate (0.4-2.0) mmol/L Calcium (8.5-10.1) mg/dl Phosphorus (2.5-4.9) mg/dl Magnesium (1.8-2.4) mg/dl Total Bilirubin (0.2-1) mg/dl AST (15-37) U/L ALT (12-78) U/L Alkaline Phosphatase (45-117) U/L Troponin I (0-0.045) ng/ml NT-Pro-B Natriuret Pep (0-1800) pg/ml Total Protein (6.4-8.2) gm/dl Albumin (3.4-5.0) gm/dl Globulin (2.5-4.0) gm/dl Albumin/Globulin Ratio (0.9-2) Lipase (73-393) U/L Procalcitonin (0-0.5) ng/ml Urine Color Dark Yellow Urine Appearance Clear (Clear) Urine pH 5.0 (4.5-7.5) Ur Specific [place] 1.023 (1.000-1.030) Urine Protein 1+ H (Negative) Urine Glucose (UA) Negative (Negative) Urine Ketones 2+ H (Negative) Urine Blood Negative (Negative) Urine Nitrite Negative (Negative) Urine Bilirubin Negative (Negative) Urine Urobilinogen Negative (Negative) Ur Leukocyte Esterase Negative (Negative) Urine WBC (Auto) 10-30 H (0-5) /hpf Urine RBC (Auto) 0-4 (0-4) /hpf U Hyaline Cast (Auto) 1-5 (0-5) /lpf U Epithel Cells (Auto) 0-5 (0-5) /lpf Urine Bacteria (Auto) 2+ H (Negative) COVID-19 Eval Order SARS-CoV-2 (PCR) NEGATIVE (Negative) Administered Medications Albuterol (Albut/Ipratrop 3mg/0.5mg Neb 3 Ml Vial) 3 ml NEB QIDR ALTAGRACIA Stop: 03/13/21 22:59 Last Admin: 02/11/21 23:24 Dose: 3 ml Documented by: [id number] Budesonide (Budesonide 0.5 Mg/2 Ml Vial (Pulmicort)) 0.5 mg NEB BIDR ALTAGRACIA Stop: 03/13/21 22:59 Last Admin: 02/11/21 23:24 Dose: 0.5 mg Documented by: [id number] Calcium Carbonate (Calcium Carbonate 500 Mg Chewable Tab) 500 mg PO BID ALTAGRACIA Stop: 03/13/21 21:33 Last Admin: 02/11/21 23:15 Dose: 500 mg Documented by: [id number] Docusate Sodium (Docusate Sodium 100 Mg Cap) 200 mg PO BID ALTAGRACIA Stop: 03/13/21 21:33 Last Admin: 02/11/21 23:14 Dose: 200 mg Documented by: [id number] Enoxaparin Sodium (Enoxaparin Inj 40 Mg/0.4 Ml Syr) 40 mg SQ Q24H ALTAGRACIA Stop: 03/13/21 22:59 Last Admin: 02/11/21 23:48 Dose: 40 mg Documented by: [id number] Sodium Chloride (Nss 1000ml) 1,000 mls @ 100 mls/hr IV .Q10H ALTAGRACIA Stop: 02/12/21 17:59 Last Admin: 02/11/21 23:19 Dose: 100 mls/hr Documented by: [id number] Piperacillin Sod/Tazobactam (Sod 3.375 gm/ Dextrose) 115 mls @ 28.75 mls/hr IV Q8H ALTAGRACIA; Protocol Stop: 02/18/21 21:59 Last Infusion: 02/12/21 03:26 Dose: 0 mls/hr Documented by: [id number] Admin: 02/11/21 23:13 Dose: 28.8 mls/hr Documented by: [id number] Methylprednisolone 40 mg/ (Syringe) 0.64 mls @ 1.5 mls/min IV Q12H ALTAGRACIA Stop: 03/14/21 02:59 Last Admin: 02/12/21 02:48 Dose: 1.5 mls/min Documented by: [id number] Miscellaneous Information (Piperacill/Tazobac Consult Active) 1 ea N/A UD PRN PRN Reason: Consult Stop: 03/13/21 15:30 Last Admin: 02/11/21 19:50 Dose: 1 ea Documented by: [id number] Pantoprazole Sodium (Pantoprazole 40 Mg Tab) 40 mg PO BID ALTAGRACIA Stop: 03/13/21 22:59 Last Admin: 02/11/21 23:49 Dose: 40 mg Documented by: [id number] Tamsulosin HCl (Tamsulosin Hcl 0.4 Mg Cap) 0.4 mg PO HS ALTAGRACIA Stop: 03/13/21 22:59 Last Admin: 02/11/21 23:48 Dose: 0.4 mg Documented by: [id number] Discontinued Medications Albuterol (Albut/Ipratrop 3mg/0.5mg Neb 3 Ml Vial) 3 ml NEB NOW STA Stop: 02/11/21 14:26 Last Admin: 02/11/21 15:05 Dose: 3 ml Documented by: [id number] Guaifenesin (Guaifenesin 600 Mg Tabcr) 600 mg PO NOW STA Stop: 02/11/21 14:26 Last Admin: 02/11/21 14:49 Dose: 600 mg Documented by: [id number] Sodium Chloride (Nss 1000ml) 1,000 mls @ 999 mls/hr IV .Q1H1M ALTAGRACIA Stop: 02/11/21 15:24 Last Infusion: 02/11/21 16:25 Dose: 0 mls/hr Documented by: [id number] Admin: 02/11/21 14:49 Dose: 999 mls/hr Documented by: [id number] Piperacillin Sod/Tazobactam Sod (Zosyn) 4.5 gm in 120 mls @ 240 mls/hr IV NOW ONE Stop: 02/11/21 16:00 Last Infusion: 02/11/21 16:25 Dose: 0 mls/hr Documented by: [id number] Admin: 02/11/21 16:10 Dose: 240 mls/hr Documented by: [id number] Sodium Chloride (Nss 1000ml) 500 mls @ 999 mls/hr IV .Q31M ONE Stop: 02/11/21 19:32 Last Infusion: 02/11/21 20:31 Dose: 0 mls/hr Documented by: [id number] Admin: 02/11/21 19:48 Dose: 999 mls/hr Documented by: [id number] Methylprednisolone (Methylprednisolone 125 Mg/2 Ml Vial) 125 mg IV NOW STA Stop: 02/11/21 14:26 Last Admin: 02/11/21 14:49 Dose: 125 mg Documented by: [id number] Imaging Data Radiologist's Impression: Chest X-Ray 02/11/21 14:22 XR chest 1V portable CLINICAL HISTORY: Atypical chest pain TECHNIQUE: Single frontal radiograph of the chest was obtained. Comparison: Comparison is made to chest one view 02/19/2020 FINDINGS: No lines and tubes are seen. The cardiomediastinal silhouette is normal. A right lower lung airspace opacity is increased from prior exam. There is a possible trace right pleural effusion. IMPRESSION: Right lower lung airspace opacity is seen which may represent atelectasis, pneumonia, and/or aspiration. ACT 112: Negative or not required by law. Electronically signed by: Bandar Painting M.D. 02/11/2021 3:11 PM Discharge Plan Visit Data Chief Complaint: Lethargic Stated Complaint: LETHARGIC ED Provider: Devin Fernandez Discharge Problem: Pneumonia, SIRS (systemic inflammatory response syndrome), UTI (urinary tract infection) Patient Disposition: Admitted As Inpatient Discharge Instructions Interventions: ED Discharge Assessment Last Done: 02/11/21 21:00 Discharge Problem: Pneumonia Qualifiers: Pneumonia type: due to unspecified organism Laterality: right Lung location: lower lobe of lung Qualified Code(s): J18.9 - Pneumonia, unspecified organism UTI (urinary tract infection) Qualifiers: Urinary tract infection type: acute cystitis Hematuria presence: without hematuria Qualified Code(s): N30.00 - Acute cystitis without hematuria
--- NOTE | 2021-02-11 15:13 | XRay Report ---
XR chest 1V portable CLINICAL HISTORY: Atypical chest pain TECHNIQUE: Single frontal radiograph of the chest was obtained. Comparison: Comparison is made to chest one view 02/19/2020 FINDINGS: No lines and tubes are seen. The cardiomediastinal silhouette is normal. A right lower lung airspace opacity is increased from prior exam. There is a possible trace right pleural effusion. IMPRESSION: Right lower lung airspace opacity is seen which may represent atelectasis, pneumonia, and/or aspirati on. ACT 112: Negative or not required by law. Electronically signed by: Bandar Painting M.D. 02/11/2021 3:11 PM
[2021-02-11 15:15] LABS: Hematocrit (blood only) 39.5 % (42-52); Hemoglobin 12.2 g/dL (14.0-18.0); Mean Corpuscular Hemoglobin 29.5 pg (25-34); Mean Corpuscular Hgb Conc 30.9 g/dL (32-36); Mean Corpuscular Volume 95.6 fL (80-100); Mean Platelet Volume 10.8 fL (7.4-10.4); Platelet Count 295 K/uL (130-400); RDW Coefficient of Variation 14.1 % (11.5-14.5); RDW Standard Deviation 49.3 fL (36.4-46.3); Red Blood Count 4.13 M/uL (4.7-6.1); White Blood Count 24.38 K/uL (4.8-10.8)
[2021-02-11 15:28] LABS: INR 1.1 (0.9-1.1); Prothrombin Time 11.1 Seconds (9.0-12.0)
[2021-02-11 15:31] LABS: Alanine Aminotransferase 54 U/L (12-78); Albumin Level 3.1 gm/dl (3.4-5.0); Aspartate Aminotransferase 18 U/L (15-37); BUN Creatinine Ratio 33.4 (10-20); Blood Urea Nitrogen 28 mg/dl (7-18); Calcium 9.4 mg/dl (8.5-10.1); Carbon Dioxide 32 mmol/L (21-32); Chloride 105 mmol/L (98-107); Est GFR (African American) 91.2 ml/min; Est GFR (Non-African American) 78.7 ml/min; Glucose 116 mg/dl (70-99); Lipase 113 U/L (73-393); Magnesium 2.4 mg/dl (1.8-2.4); Potassium 4.1 mmol/L (3.5-5.1); Sodium 141 mmol/L (136-145)
[2021-02-11] MEDS ORDERED: PIPERACILLIN/TAZOBACTAM 4.5 GM/120 ML BAG IV ONE (15:31)
[2021-02-11] MEDS ORDERED: PIPERACILL/TAZOBAC CONSULT ACTIVE PRN (15:31)
[2021-02-11 15:36] LABS: Basophils # (auto) 0.02 K/uL (0-0.2); Basophils % (auto) 0.1 %; Eosinophils # (auto) 0.01 K/uL (0-0.5); Immature Granulocytes % (auto) 0.4 %; Lymphocytes # (auto) 0.68 K/uL (1.2-3.4); Lymphocytes % (auto) 2.8 %; Monocytes # (auto) 0.82 K/uL (0.11-0.59); Monocytes % (auto) 3.4 %; Neutrophils # (auto) 22.75 K/uL (1.4-6.5); Neutrophils % (auto) 93.3 %; Ovalocytes 1+
[2021-02-11 15:37] LABS: Albumin Globulin Ratio 0.8 (0.9-2); Alkaline Phosphatase 134 U/L (45-117); Bilirubin,Total 0.6 mg/dl (0.2-1); NT Pro B Type Natriuretic Pept 554 pg/ml (0-1800); Total Protein 7.1 gm/dl (6.4-8.2); Troponin I < 0.015 ng/ml (0-0.045)
[2021-02-11 16:07] LABS: Base Excess VBG 3.7 mEq/L; Oxygen Saturation VBG 66.7 %; pH VBG 7.36 (7.36-7.41)
[2021-02-11 17:47] LABS: Appearance Urine Clear (Clear); Bacteria Urine Automated 2+ (Negative); Bilirubin Urine Negative (Negative); Blood Urine Negative (Negative); Color Urine Dark Yellow; Epithelial Cell Urine Auto 0-5 /lpf (0-5); Glucose Urine UA Negative (Negative); Ketones Urine 2+ (Negative); Leukocyte Esterase Urine Negative (Negative); Nitrite Urine Negative (Negative); Protein Urine 1+ (Negative); RBC Urine Automated 0-4 /hpf (0-4); Specific Gravity Urine 1.023 (1.000-1.030); Urobilinogen Urine Negative (Negative)
--- NOTE | 2021-02-11 17:56 | History & Physical Report ---
Date of Service February 11, 2021 Assessment & Plan (1) Acute and chronic respiratory failure with hypoxia: Plan: 85 y/o male w/ PMHx of COPD and hospitalization last year for pneumonia who presents w/ acute on chronic hypoxemic resp failure 2/2 RLL pneumonia. Stable. - per imaging, elevated wbc 24, 38.1C, and tachycardia on admission. RLL opacities appears milder than cxr from last admission (02/19/20). W/ dependent positioning, considered aspiration pneumonia and will cover for - passed bedside swallow and will feed, but ordered speech eval. aspiration precautions - continue Zosyn, narrow when cultures result - blood culture pending. ordered sputum cultures and nasal mrsa - per my exam, no wheezes. pneumonia more likely main contributor to symptoms as opposed to COPD exac, but as EMS and ED exams noted rhonchi, will treat w/ IV corticosteroids methylpred 40mg q12h - follow cbc and CMP in AM (2) Sepsis: Plan: - septic. volume status appears euvolemic. s/p 1L NSS in ED, will provide a nother 500 mL bolus. Afterwards, maintenance IVF 100mL/hr. No recent echo. Last echo 2016 w/ EF 55-60. current BNP 500s noted. - see above. providing IV fluids - strict Is and Os (3) COPD (chronic obstructive pulmonary disease): Plan: - see above. in lieu of home regimen, will provide pulmcort respules+duoneb, both chosen for nebulizer route - phlegmy cough and mucous-sounding. flutter valve, incentive spirometry, Mucinex 1200mg BID, and chest percussion therapy (4) Pneumonia: Plan: - see above (5) Hypertension: Plan: - continue home amlodipine (6) Anemia: Plan: - stable, chronic, takes iron supp at home, home temporarily this admission (7) GERD (gastroesophageal reflux disease): Plan: - continue home PPI (8) Vitamin D deficiency: Plan: - 2/2 parathyroidectomy for hx of hyperparathyroidism. continue home calcitriol (9) Colostomy care: Plan: - routine care, appears funcitonal adn w/o signs of infection. Plan: FEN/GI: Low Na diet. Aspiration precautions. Maintenance NSS 100 mL/hr code: full ppx: SCDs+SQ Lovenox 40mg daily dispo: med/surg tele PT/OT and speech evals Covid neg. After discussion, patient agreeable to receiving covid vaccine after this hospitalization. His previous reason for not receiving was because he believed his exposure risk was low. Will include in dc summary to get at pharmacy or from pcp. History of Present Illness Chief Complaint: dyspnea Primary Care Provider: Mateus Boyd MD Ford Kumari is an 85 y/o male w/ PMHx of HTN, COPD on 2-2.5L, GERD, and co lostomy who presents w/ worsening cough and dyspnea x 2 weeks (not worsening, but is lingering). Also has fatigue and poor appetite. 89% on EMS arrival on home 2L. Febrile to 28C and tachycardic to 100. Patient states main concerning his family is his cough. Cough is productive, he has not looked at color. He has not heard wheezing. Denies hx of VTE or cancer. No current pain. He thinks he took his AM meds today, but notes he occasionally forgets. His family occasionally helps. He is not in any pain and currently denies respiratory complaint. Denies aspiration concerns. Distant 2 pack year tobacco hx. Not covid vaccinated. [facility] pulm visit 09/07/20 telemedicine. KINNEY on minimal exertion. Not covid immunized. Lives w/ . Advair and combivent. 02/2020 [facility] admission for community acquired pneumonia. cxr w/ RLL airspace opacity. ED course: zosyn. albuterol neb. Mucinex. 125mg IVmethylpred. 1L NSS. WBC 24.38. 38.1C temp. Tachy to 110s, improved. ecg sinus tach Slightly poor historian, likely has mild baseline memory problems. Allergies Allergy/AdvReac Type Severity Reaction Status Date / Time morphine AdvReac Severe Agitated Verified 02/11/21 15:31 Home Medications Medication Instructions Recorded Confirmed Type Saccharomyces boulardii 250 mg 250 mg PO UD 04/23/18 02/11/21 History capsule (Florastor) docusate sodium 100 mg capsule 200 mg PO BID 04/23/18 02/11/21 History ferrous sulfate 325 mg (65 mg 325 mg PO UD 04/23/18 02/11/21 History iron) tablet (iron) razptljc-vru-itirn acid 0.4 1 tab PO DAILY 04/23/18 02/11/21 History mg-lycopene 300 mcg-lutein 250 mcg tablet (Centrum Silver) guaifenesin 600 mg tablet, 600 mg PO BID #60 tab 12/05/19 02/11/21 Rx extended release 12 hr ipratropium 0.5 mg-albuterol 3 mg 3 ml INHALATION Q6H PRN #90 ml 12/05/19 02/11/21 Rx (2.5 mg base)/3 mL nebulization soln tamsulosin 0.4 mg capsule 0.4 mg PO HS #90 cap 04/29/20 02/11/21 Rx fluticasone 250 mcg-salmeterol 50 1 inh INHALATION BID #60 ea 05/10/20 02/11/21 Rx mcg/dose blistr powdr for inhalation (Advair Diskus) finasteride 5 mg tablet 5 mg PO DAILY #90 tab 05/11/20 02/11/21 Rx calcium carbonate 400 mg calcium 400 mg PO BID tab 07/07/20 02/11/21 History (1,000 mg) chewable tablet (Tums Ultra) calcitriol 0.25 mcg capsule 0.25 mcg PO DAILY #30 cap 07/08/20 02/11/21 Rx ostomy supplies #1 ea 08/04/20 02/11/21 Rx ipratropium 20 mcg-albuterol 100 1 puff INHALATION QID #4 g 09/06/20 02/11/21 Rx mcg/actuation mist for inhalation (Combivent Respimat) amlodipine 10 mg tablet 10 mg PO DAILY #90 tab 09/27/20 02/11/21 Rx pantoprazole 40 mg tablet,delayed 40 mg PO BID #60 tab 01/06/21 02/11/21 Rx release Past Med/Surg History Medical History (Updated 02/11/21 @ 19:10 by Primo Arcos MD) Colostomy complication Colostomy complication COPD (chronic obstructive pulmonary disease) Hyperparathyroidism Hypertension Pneumonia Pneumoperitoneum Sepsis Surgical History History of colon resection Family History Denies family history of Ovarian cancer Prostate cancer Myocardial infarction Breast cancer Colorectal cancer Social History Smoking Status: Former smoker Tobacco Type: Cigarettes Age Started Using Tobacco: 19; Age Quit Using Tobacco: 23; packs per day: 0.5; Second Hand Exposure: No; Hx Alcohol Use: No Hx Substance Use: No Preferred Language: [place] Communication Ability: Effective Visual Impairment: No Limitations Hearing Ability: Normal Director Of Officiating Required: No Beliefs That Will Affect Care: None marital status: Current Living Situation: Spouse and Family Current Living Situation Comment: and grandchilren current occupational status: retired 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 Does not have thermometer and does not weigh self. Does not feel fatigued Eyes: Denies blurry vision, vision changes Denies nasal congestion ENT: Denies sore throat, sinus pain. Denies otalgia. Cardiovascular: Denies chest pain, palpitations Respiratory: Chronic KINNEY intermittently. Denies current sob or distress. Denies orthopnea or pleuritic pain. Gastrointestinal: Denies abdominal pain, nausea, vomiting, constipation, diarrhea, loody stool Genitourinary: Denies urinary symptoms including dysuria Musculoskeletal: Denies weakness, muscle aches/pain, joint aches/pain Neurological: Denies headache, numbness, tingling, focal weakness Physical Exam Physical Exam: General: Grossly oriented to person, location, year. Some memory issue on exam? Did not know city of [facility] and was not ocnfident about his home city [place].. NAD. Cooperative. Thin/frail appearing. HEENT: Atraumatic, normocephalic. EOMI. PERRL, small pupils. oropharynx wnl. No LAD. Pulm: No wheezes. Faint insp crackles at R anterior lung field. L anterior good air entry. Diffuse decreased air entry on posterior doran. Some transmitted airway sounds L posterior. No respiratory distress. Very slightly accessory muscle use but patient appears comfortable. Phlegmy sounding cough. Cardiac: RRR, -mrg. Radial pulses intact and symmetrical. No LE edema. Abdominal: Nontender, nondistended, soft. L abd ostomy, opaque bag. No surrounding erythema. Integ: Left upper chest wall 1in x.75min nodule, chronic and not new per patient. umb hernia scar Musculoskeletal: Moving all extremities Neuro: Normal strength/sensation of extrem Results & Data Results & Data ([facility]) Vital Signs (Past 12 Hours) Vital Signs During my interview, vitals in room were: currently 92-93 on 2L. pulse 86. 15 0/78. rr 21.Tachycardia resolved. Temp Pulse Pulse Resp BP Pulse Ox 02/11/21 16:30 87 26 H 160/79 H 95 02/11/21 16:11 37.3 C 02/11/21 16:00 92 H 25 H 158/81 H 97 02/11/21 15:34 98 H 19 96 02/11/21 15:07 117 H 20 94 02/11/21 14:25 38.1 C H 112 H 25 H 173/104 H 94 Laboratory Results WBC 24.38. Hb 12.2 stable. coags wnl. vbg ph 7.36. electrolytes wnl. Cr 0.84. Lactate 1.0. alk phos 73->134. trop neg x1. bnp 188->554.lipase 113. procalc 0.69H. UA pending. covid neg. 02/11/21 14:59 02/11/21 14:59 Cardiac Enzymes 02/11/21 Range/Units 14:59 AST 18 (15-37) U/L Troponin I < 0.015 (0-0.045) ng/ml Coagulation 02/11/21 Range/Units 14:59 PT 11.1 (9.0-12.0) Seconds CBC 02/11/21 Range/Units 14:59 WBC 24.38 H (4.8-10.8) K/uL RBC 4.13 L (4.7-6.1) M/uL Hgb 12.2 L (14.0-18.0) g/dL Hct 39.5 L (42-52) % Plt Count 295 (130-400) K/uL Neut # (Auto) 22.75 H (1.4-6.5) K/uL Lymph # (Auto) 0.68 L (1.2-3.4) K/uL Frontier # (Auto) 0.82 H (0.11-0.59) K/uL Eos # (Auto) 0.01 (0-0.5) K/uL Baso # (Auto) 0.02 (0-0.2) K/uL Comprehensive Metabolic Panel 02/11/21 Range/Units 14:59 Sodium 141 (136-145) mmol/L Potassium 4.1 (3.5-5.1) mmol/L Chloride 105 (98-107) mmol/L Carbon Dioxide 32 (21-32) mmol/L BUN 28 H (7-18) mg/dl Creatinine 0.84 (0.6-1.4) mg/dl Glucose 116 H (70-99) mg/dl Calcium 9.4 (8.5-10.1) mg/dl AST 18 (15-37) U/L ALT 54 (12-78) U/L Alkaline Phosphatase 134 H (45-117) U/L Total Protein 7.1 (6.4-8.2) gm/dl Albumin 3.1 L (3.4-5.0) gm/dl Intake and Output 02/11/21 02/11/21 02/11/21 06:59 14:59 22:59 Intake Total 1120 / 1120 Balance 1120 / 1120 Intake: IV 1120 / 1120 Piperacillin/Tazobactam 4.5 gm 120 / 120 In 120 ml @ 240 mls/hr IV NOW ONE Rx#:[id number] Sodium Chloride 0.9% 1000ML 1, 1000 / 1000 000 ml @ 999 mls/hr IV .Q1H1M [facility] Rx#:[id number] Other: Weight 65 kg Weight Measurement Method Built in [facility] Patient Weight 02/12/21 06:59 Weight 65 kg Diagnostic Findings Chest X-Ray 02/11/21 14:22 XR chest 1V portable CLINICAL HISTORY: Atypical chest pain TECHNIQUE: Single frontal radiograph of the chest was obtained. Comparison: Comparison is made to chest one view 02/19/2020 FINDINGS: No lines and tubes are seen. The cardiomediastinal silhouette is normal. A right lower lung airspace opacity is increased from prior exam. There is a possible tr jgina right pleural effusion. IMPRESSION: Right lower lung airspace opacity is seen which may represent atelectasis, pneumonia, and/or aspiration. ACT 112: Negative or not required by law. Electronically signed by: Bandar Painting M.D. 02/11/2021 3:11 PM ECG Additional Comments: Vent. Rate : 112 BPM Atrial Rate : 112 BPM P-R Int : 138 ms QRS Dur : 086 ms QT Int : 314 ms P-R-T Axes : 079 -53 087 degrees QTc Int : 428 ms Sinus tachycardia Left axis deviation Abnormal ECG When compared with ECG of 19-FEB-2020 01:00, Nonspecific T wave abnormality now evident in Anterior leads Confirmed by Mateus Boateng ([id number]) on 02/11/2021 6:15:15 PM Code Status & VTE Plan Code Status full VTE Prophylaxis Plan VTE Prophylaxis will be ordered: Yes Supervising Physician Co-Signing Physician Notes Patient seen and examined, chart reviewed, case discussed with Dr. Arcos and I agree with the assessment and plan as above except as otherwise noted above. General: Oriented to name and intermittently to place only. Not oriented to year or month. No acute distress, cooperative, follows one-step commands. HEENT: Atraumatic, normocephalic. Visual acuity and hearing grossly intact. Skin: Left upper chest with mobile subcutaneous mass, baseline and unchanged for many years per patient, reports developed after a torn muscle and has been persistent. No pain. Pulm: Right lower crackles, moderate air movement, no overt wheezes/rales. Symmetrical chest rise. No increase work of breathing. No respiratory distress. Cardiac: RRR, -mrg. Radial pulses intact and symmetrical. Abdominal: Nontender, nondistended, soft. BS present. All labs and images reviewed Aspiration pneumonia Aspiration precautions, continue antibiotics as above. Cultures pending as above. CBC/BMP daily. Patient received 1 L NSS bolus +500 cc bolus, near 30 cc/kg patient pressure is improved and appears well at bedside. We will continue IVF M. Resident Activity Tracking Resident Involvement: Resident Care Provided Care Provided: Adult Hospital Medicine (1) Pneumonia Laterality: right Lung location: lower lobe of lung Pneumonia type: due to unspecified organism Qualified Code(s): J18.9 - Pneumonia, unspecified organism
--- NOTE | 2021-02-11 18:15 | Electrocardiogram Report ---
Test Reason : Blood Pressure : / mmHG Vent. Rate : 112 BPM Atrial Rate : 112 BPM P-R Int : 138 ms QRS Dur : 086 ms QT Int : 314 ms P-R-T Axes : 079 -53 087 degrees QTc Int : 428 ms Sinus tachycardia Left axis deviation Abnormal ECG When compared with ECG of 19-FEB-2020 01:00, Nonspecific T wave abnormality now evident in Anterior leads Confirmed by Mateus Boateng ([id number]) on 02/11/2021 6:15:15 PM Referred By: REFERRED SELF Confirmed By:Enrrique Boateng
[2021-02-11] MEDS ORDERED: SODIUM CHLORIDE 0.9% 1000ML 500 ML IV ONE (19:02)
[2021-02-11] MEDS ORDERED: ONDANSETRON INJ 2 MG/ML 2 ML VIAL IV PRN (21:34)
[2021-02-11] MEDS ORDERED: ACETAMINOPHEN 325 MG TAB PO PRN (21:34)
[2021-02-11] MEDS ORDERED: ALUMINUM/MAGNESIUM SUSP 30 ML UDC PO PRN (21:34)
[2021-02-11] MEDS ORDERED: POLYETHYLENE (MIRALAX) 17 GM PACK PO PRN (21:34)
[2021-02-11] MEDS ORDERED: ENOXAPARIN INJ 40 MG/0.4 ML SYR SQ SCH (23:00)
[2021-02-11] MEDS: PIPERACILLIN/TAZOBACTAM 3.375 GM in DEXTROSE 5% 100 ML IV SCH (23:13)
[2021-02-11] MEDS: DOCUSATE SODIUM 100 MG CAP PO SCH (23:14)
[2021-02-11] MEDS: CALCIUM CARBONATE 500 MG CHEWABLE TAB PO SCH (23:15)
[2021-02-11] MEDS: SODIUM CHLORIDE 0.9% 1000ML 1,000 ML IV SCH (23:19)
[2021-02-11] MEDS: BUDESONIDE 0.5 MG/2 ML VIAL (PULMICORT) NEB SCH (23:24)
[2021-02-11] MEDS: ALBUT/IPRATROP 3MG/0.5MG NEB 3 ML VIAL NEB SCH (23:24)
[2021-02-11] MEDS: TAMSULOSIN HCL 0.4 MG CAP PO SCH (23:48)
[2021-02-11] MEDS: PANTOprazole 40 MG TAB PO SCH (23:49)
[2021-02-12] MEDS: methylPREDNISolone 40 MG in SYRINGE 0 ML IV SCH ×2 (02:48→15:10)
[2021-02-12] MEDS ORDERED: methylPREDNISolone 40 MG in SYRINGE 0 ML IV ONE (03:00)
[2021-02-12] MEDS: PIPERACILLIN/TAZOBACTAM 3.375 GM in DEXTROSE 5% 100 ML IV SCH ×3 (05:57→21:50)
[2021-02-12 06:56] LABS: Basophils # (auto) 0.01 K/uL (0-0.2); Hematocrit (blood only) 35.2 % (42-52); Hemoglobin 10.9 g/dL (14.0-18.0); Immature Granulocytes # (auto) 0.06 K/uL (0.00-0.02); Immature Granulocytes % (auto) 0.3 %; Lymphocytes # (auto) 0.37 K/uL (1.2-3.4); Lymphocytes % (auto) 1.8 %; Mean Corpuscular Hemoglobin 29.3 pg (25-34); Mean Corpuscular Volume 94.6 fL (80-100); Mean Platelet Volume 10.9 fL (7.4-10.4); Monocytes # (auto) 0.46 K/uL (0.11-0.59); Monocytes % (auto) 2.3 %; Neutrophils # (auto) 19.52 K/uL (1.4-6.5); Neutrophils % (auto) 95.6 %; Platelet Count 251 K/uL (130-400); RDW Coefficient of Variation 14.1 % (11.5-14.5); RDW Standard Deviation 48.6 fL (36.4-46.3); Red Blood Count 3.72 M/uL (4.7-6.1); White Blood Count 20.42 K/uL (4.8-10.8)
[2021-02-12] MEDS: ALBUT/IPRATROP 3MG/0.5MG NEB 3 ML VIAL NEB SCH ×4 (07:02→19:55)
[2021-02-12] MEDS: BUDESONIDE 0.5 MG/2 ML VIAL (PULMICORT) NEB SCH ×2 (07:02→19:55)
[2021-02-12 07:28] LABS: Albumin Level 2.4 gm/dl (3.4-5.0); BUN Creatinine Ratio 34.3 (10-20); Calcium 8.6 mg/dl (8.5-10.1); Creatinine Clr Calc Pharmacy 56.6 ml/min; Est GFR (African American) 95.1 ml/min; Potassium 3.7 mmol/L (3.5-5.1)
[2021-02-12 07:31] LABS: Albumin Globulin Ratio 0.7 (0.9-2); Bilirubin,Total 0.4 mg/dl (0.2-1); Globulin 3.6 gm/dl (2.5-4.0)
[2021-02-12] MEDS: SODIUM CHLORIDE 0.9% 1000ML 1,000 ML IV SCH (07:35)
[2021-02-12] MEDS: PANTOprazole 40 MG TAB PO SCH ×2 (07:36→19:43)
[2021-02-12] MEDS: DOCUSATE SODIUM 100 MG CAP PO SCH ×2 (07:36→19:43)
[2021-02-12] MEDS: FINASTERIDE 5 MG TAB PO SCH (07:36)
[2021-02-12] MEDS: CALCIUM CARBONATE 500 MG CHEWABLE TAB PO SCH ×2 (07:36→19:44)
[2021-02-12] MEDS: guaiFENesin 600 MG TABCR PO SCH ×2 (07:36→19:43)
[2021-02-12] MEDS: amLODIPine BESYLATE 5 MG TAB PO SCH (07:37)
[2021-02-12] MEDS: CALCITRIOL 0.25 MCG CAPSULE PO SCH (07:37)
--- NOTE | 2021-02-12 13:25 | Hospitalist Progress Note ---
Date of Service February 12, 2021 Assessment & Plan (1) Acute and chronic respiratory failure with hypoxia: Plan: 85 y/o male w/ PMHx of COPD and hospitalization last year for pneumonia who presents w/ acute on chronic hypoxemic resp failure 2/2 RLL pneumonia. Stable. - per imaging, elevated wbc 24, 38.1C, and tachycardia on admission. RLL opacities appears milder than cxr from last admission (02/19/20). - continue Zosyn, narrow when cultures result - blood culture negative @ 24 hours. ordered sputum cultures (pending) and nasal mrsa - most likely secondary to PNA (2) Sepsis: Plan: - septic. volume status appears euvolemic. s/p 1L NSS in ED, will provide another 500 mL bolus. Stop further IV fluids today, eating and drinking well (3) COPD (chronic obstructive pulmonary disease): Plan: - see above. in lieu of home regimen, will provide pulmcort respules+duoneb, both chosen for nebulizer route - continue IV solu-medrol 40mg IV BID - phlegmy cough and mucous-sounding. flutter valve, incentive spirometry, Mucinex 1200mg BID, and chest percussion therapy (4) Pneumonia: Plan: - see above (5) Hypertension: Plan: - continue home amlodipine (6) Anemia: Plan: - stable, chronic, takes iron supp at home, home temporarily this admission (7) GERD (gastroesophageal reflux disease): Plan: - continue home PPI (8) Vitamin D deficiency: Plan: - 2/2 parathyroidectomy for hx of hyperparathyroidism. continue home calcitriol (9) Colostomy care: Plan: - routine care, appears funcitonal adn w/o signs of infection. Plan: FEN/GI: Low Na diet. Aspiration precautions. code: full ppx: SCDs+SQ Lovenox 40mg daily dispo: stable for transfer to medical, patient refusing PT/OT Admission and Anticipated Discharge Date Admission Date: February 11, 2021 Subjective Patient unable to tell me why he came to the emergency room. Just tells me he feels well and would like to be discharged home. Per prior documentation he is usually on oxygen and the patient confirms this. He denies any urinary problems. Discussed case with his Granddaughter in law over the phone: she reports herself and are power of personal injury attorney. The patient has severe short term memory loss. This is evidenced by the fact he could not remember me between my two visits with him today. She reports slowly getting sicker for the last 2 weeks. More labored breathing, urinary incontinence, increased cough. Review of Systems Review of Systems: All systems reviewed & are unremarkable except as noted in HPI & below Physical Exam Constitutional: well developed; + not well nourished and no acute distress Respiratory: normal respiratory effort; no respiratory distress Auscultation: + rhonchi (throughout) Cardiovascular: Rate/Rhythm: regular rate and regular rhythm Heart Sounds: no murmur Extremities: normal capillary refill; no calf tenderness and no pedal edema Gastrointestinal (Abdomen): normal bowel sounds, soft, nontender, no hepatosplenomegaly Musculoskeletal: no cyanosis or clubbing, extremities motor strength 5/5 Skin: no rashes, warm and dry Neurologic: moves all extremities, awake and + confused (clear short term memory deficit) Psychiatric: Orientation: alert and oriented to person (self); + not oriented to place and + not oriented to time Results & Data Results & Data ([facility]) Vital Signs (Past 12 Hours) Vital Signs Temp Pulse Pulse Resp BP BP Pulse Ox 02/12/21 10:53 36.7 C 75 18 137/58 L 91 02/12/21 07:32 36.9 C 81 20 129/69 94 02/12/21 07:06 74 02/12/21 04:32 36.9 C 76 18 135/70 93 PG Care Time/CCT Total # of Minutes Spent Total Time Spent with Patient: Total time spent is greater than 50% in coordination of care (as documented) at patient's floor/unit and/or counseling patient: Coding Level of Care Code 29238 Subseq Hosp Care Lvl 2 Diagnoses Acute and chronic respiratory failure with hypoxia J96.21 Sepsis A41.9 COPD (chronic obstructive pulmonary disease) J44.9 Pneumonia J18.9 Laterality: right Lung location: lower lobe of lung Pneumonia type: due to unspecified organism Hypertension I10 Anemia D64.9 GERD (gastroesophageal reflux disease) K21.9 Vitamin D deficiency E55.9 Colostomy care Z43.3 (1) Pneumonia Laterality: right Lung location: lower lobe of lung Pneumonia type: due to unspecified organism Qualified Code(s): J18.9 - Pneumonia, unspecified organism
[2021-02-12] MEDS: TAMSULOSIN HCL 0.4 MG CAP PO SCH (19:43)
[2021-02-12] MEDS ORDERED: FLUTICASONE/SALMETEROL 250/50 (ADVAIR) 14 PUFF/1 INHALER INH SCH (21:13)
[2021-02-12] MEDS: ENOXAPARIN INJ 40 MG/0.4 ML SYR SQ SCH (21:50)
[2021-02-13] MEDS: methylPREDNISolone 40 MG in SYRINGE 0 ML IV SCH ×2 (03:14→15:20)
[2021-02-13] MEDS: PIPERACILLIN/TAZOBACTAM 3.375 GM in DEXTROSE 5% 100 ML IV SCH ×3 (05:41→21:32)
[2021-02-13] MEDS: BUDESONIDE 0.5 MG/2 ML VIAL (PULMICORT) NEB SCH ×2 (07:27→19:32)
[2021-02-13] MEDS: ALBUT/IPRATROP 3MG/0.5MG NEB 3 ML VIAL NEB SCH ×4 (07:27→19:32)
[2021-02-13] MEDS: PANTOprazole 40 MG TAB PO SCH ×2 (08:37→20:54)
[2021-02-13] MEDS: guaiFENesin 600 MG TABCR PO SCH ×2 (08:37→20:54)
[2021-02-13] MEDS: FINASTERIDE 5 MG TAB PO SCH (08:38)
[2021-02-13] MEDS: DOCUSATE SODIUM 100 MG CAP PO SCH ×2 (08:38→20:54)
[2021-02-13] MEDS: CALCITRIOL 0.25 MCG CAPSULE PO SCH (08:39)
[2021-02-13] MEDS: FLUTICASONE/VILANTEROL 200/25MCG 14 PUFFS/INHALER INH SCH (08:39)
[2021-02-13] MEDS: amLODIPine BESYLATE 5 MG TAB PO SCH (08:39)
[2021-02-13] MEDS: CALCIUM CARBONATE 500 MG CHEWABLE TAB PO SCH ×2 (08:39→20:54)
[2021-02-13] MEDS ORDERED: AZITHROMYCIN 250 MG TAB PO ONE (11:00)
--- NOTE | 2021-02-13 17:48 | Hospitalist Progress Note ---
Date of Service February 13, 2021 Assessment & Plan (1) Acute and chronic respiratory failure with hypoxia: Plan: 85 y/o male w/ PMHx of COPD and hospitalization last year for pneumonia who presents w/ acute on chronic hypoxemic resp failure 2/2 RLL pneumonia. Stable. - per imaging, elevated wbc 24, 38.1C, and tachycardia on admission. RLL opacities appears milder than cxr from last admission (02/19/20). - continue Zosyn, narrow when cultures result - Blood cultures GPC 1/2 (awaiting final identification. ordered sputum cultures (pending), Nasal MRSA negative - most likely secondary to PNA (unclear if blood cultures are contaminant - Urine culture - alpha strep, doubtful source unless same bacteria in blood (2) Sepsis: Plan: POA. Treatment as above. (3) COPD (chronic obstructive pulmonary disease): Plan: - see above. in lieu of home regimen, will provide pulmcort respules+duoneb, both chosen for nebulizer route - continue IV solu-medrol 40mg IV BID, switch to presnidone 40mg PO daily tomorrow - phlegmy cough and mucous-sounding. flutter valve, incentive spirometry, Mucinex 1200mg BID (4) Pneumonia: Plan: - see above (5) Hypertension: Plan: - continue home amlodipine (6) Anemia: Plan: - stable, chronic, takes iron supp at home, home temporarily this admission (7) GERD (gastroesophageal reflux disease): Plan: - continue home PPI (8) Vitamin D deficiency: Plan: - 2/2 parathyroidectomy for hx of hyperparathyroidism. continue home calcitriol (9) Colostomy care: Plan: - routine care, appears funcitonal adn w/o signs of infection. (10) Short-term memory loss: Plan: Patient has no capacity to leave the hospital. This is longstanding per his granddaughter in law who has POA. Plan: FEN/GI: Low Na diet. Aspiration precautions. code: full ppx: SCDs+SQ Lovenox 40mg daily dispo: stable for transfer to medical, patient refusing PT/OT Admission and Anticipated Discharge Date Admission Date: February 11, 2021 Subjective Patient tells me he feels fine. No current complaints or questions. Does not remember me from yesterday. He denies any shortness of breath. Updated his granddaughter over the phone. Review of Systems Review of Systems: All systems reviewed & are unremarkable except as noted in HPI & below Physical Exam Constitutional: well developed; + not well nourished and no acute distress Respiratory: normal respiratory effort; no respiratory distress Auscultation: + rhonchi (throughout, improved from yesterday) Cardiovascular: Rate/Rhythm: regular rate and regular rhythm Heart Sounds: no murmur Extremities: normal capillary refill; no calf tenderness and no pedal edema Gastrointestinal (Abdomen): normal bowel sounds, soft, nontender, no hepatosplenomegaly Musculoskeletal: no cyanosis or clubbing, extremities motor strength 5/5 Skin: no rashes, warm and dry Neurologic: moves all extremities, awake and + confused (clear short term memory deficit) Psychiatric: Orientation: alert and oriented to person (self); + not oriented to place and + not oriented to time Results & Data Results & Data ([facility]) Vital Signs (Past 12 Hours) Vital Signs Temp Pulse Resp BP Pulse Ox 02/13/21 15:45 36.4 C L 87 18 140/73 90 02/13/21 15:03 86 17 95 02/13/21 10:43 84 18 96 02/13/21 08:00 36.6 C 80 18 164/82 H 94 02/13/21 07:30 74 18 96 PG Care Time/CCT Total # of Minutes Spent Total Time Spent with Patient: Total time spent is greater than 50% in coordination of care (as documented) at patient's floor/unit and/or counseling patient: Coding Level of Care Code 57523 Subseq Hosp Care Lvl 2 Diagnoses Acute and chronic respiratory failure with hypoxia J96.21 Sepsis A41.9 COPD (chronic obstructive pulmonary disease) J44.9 Pneumonia J18.9 Laterality: right Lung location: lower lobe of lung Pneumonia type: due to unspecified organism Hypertension I10 Anemia D64.9 GERD (gastroesophageal reflux disease) K21.9 Vitamin D deficiency E55.9 Colostomy care Z43.3 Short-term memory loss R41.3 (1) Pneumonia Laterality: right Lung location: lower lobe of lung Pneumonia type: due to unspecified organism Qualified Code(s): J18.9 - Pneumonia, unspecified organism
[2021-02-13] MEDS: ENOXAPARIN INJ 40 MG/0.4 ML SYR SQ SCH (20:54)
[2021-02-13] MEDS: TAMSULOSIN HCL 0.4 MG CAP PO SCH (20:54)
[2021-02-14] MEDS: PIPERACILLIN/TAZOBACTAM 3.375 GM in DEXTROSE 5% 100 ML IV SCH ×3 (05:04→16:16)
[2021-02-14] MEDS: ALBUT/IPRATROP 3MG/0.5MG NEB 3 ML VIAL NEB SCH ×4 (07:17→19:17)
[2021-02-14] MEDS: BUDESONIDE 0.5 MG/2 ML VIAL (PULMICORT) NEB SCH ×2 (07:19→19:17)
[2021-02-14 07:59] LABS: Hematocrit (blood only) 36.1 % (42-52); Hemoglobin 11.3 g/dL (14.0-18.0); Mean Corpuscular Hemoglobin 29.3 pg (25-34); Mean Corpuscular Hgb Conc 31.3 g/dL (32-36); Mean Corpuscular Volume 93.5 fL (80-100); Mean Platelet Volume 11.1 fL (7.4-10.4); Platelet Count 268 K/uL (130-400); RDW Coefficient of Variation 13.9 % (11.5-14.5); RDW Standard Deviation 47.7 fL (36.4-46.3); Red Blood Count 3.86 M/uL (4.7-6.1); White Blood Count 13.65 K/uL (4.8-10.8)
[2021-02-14] MEDS: PANTOprazole 40 MG TAB PO SCH ×2 (08:00→20:09)
[2021-02-14] MEDS: CALCIUM CARBONATE 500 MG CHEWABLE TAB PO SCH ×2 (08:00→20:11)
[2021-02-14] MEDS: DOCUSATE SODIUM 100 MG CAP PO SCH ×2 (08:00→20:08)
[2021-02-14] MEDS: guaiFENesin 600 MG TABCR PO SCH ×2 (08:00→20:10)
[2021-02-14] MEDS: CALCITRIOL 0.25 MCG CAPSULE PO SCH (08:01)
[2021-02-14] MEDS: FLUTICASONE/VILANTEROL 200/25MCG 14 PUFFS/INHALER INH SCH (08:01)
[2021-02-14] MEDS: AZITHROMYCIN 250 MG TAB PO SCH (08:01)
[2021-02-14] MEDS: FINASTERIDE 5 MG TAB PO SCH (08:01)
[2021-02-14] MEDS: amLODIPine BESYLATE 5 MG TAB PO SCH (08:01)
[2021-02-14 08:42] LABS: Basophils # (auto) 0.01 K/uL (0-0.2); Basophils % (auto) 0.1 %; Echinocytes 1+; Eosinophils # (auto) 0.02 K/uL (0-0.5); Eosinophils % (auto) 0.1 %; Immature Granulocytes # (auto) 0.05 K/uL (0.00-0.02); Immature Granulocytes % (auto) 0.4 %; Lymphocytes # (auto) 1.44 K/uL (1.2-3.4); Lymphocytes % (auto) 10.5 %; Monocytes # (auto) 0.67 K/uL (0.11-0.59); Monocytes % (auto) 4.9 %; Neutrophils # (auto) 11.46 K/uL (1.4-6.5); Ovalocytes 1+
[2021-02-14 09:07] LABS: Hematocrit (blood only) 36.4 % (42-52); Hemoglobin 11.7 g/dL (14.0-18.0); Mean Corpuscular Hemoglobin 29.7 pg (25-34); Mean Corpuscular Hgb Conc 32.1 g/dL (32-36); Mean Corpuscular Volume 92.4 fL (80-100); Mean Platelet Volume 10.3 fL (7.4-10.4); Platelet Count 272 K/uL (130-400); RDW Coefficient of Variation 13.9 % (11.5-14.5); Red Blood Count 3.94 M/uL (4.7-6.1); White Blood Count 13.32 K/uL (4.8-10.8)
[2021-02-14 09:17] LABS: Basophils # (auto) 0.01 K/uL (0-0.2); Basophils % (auto) 0.1 %; Eosinophils # (auto) 0.02 K/uL (0-0.5); Eosinophils % (auto) 0.2 %; Immature Granulocytes # (auto) 0.05 K/uL (0.00-0.02); Immature Granulocytes % (auto) 0.4 %; Lymphocytes # (auto) 1.45 K/uL (1.2-3.4); Lymphocytes % (auto) 10.9 %; Monocytes # (auto) 0.55 K/uL (0.11-0.59); Monocytes % (auto) 4.1 %; Neutrophils # (auto) 11.24 K/uL (1.4-6.5); Neutrophils % (auto) 84.3 %
[2021-02-14 09:28] LABS: Ovalocytes 1+
[2021-02-14] MEDS: predniSONE 20 MG TAB PO SCH (09:32)
[2021-02-14 09:52] LABS: BUN Creatinine Ratio 26.1 (10-20); Calcium 8.9 mg/dl (8.5-10.1); Creatinine Clr Calc Pharmacy 52.4 ml/min; Est GFR (African American) 92.2 ml/min; Est GFR (Non-African American) 79.5 ml/min; Potassium 3.4 mmol/L (3.5-5.1)
[2021-02-14] MEDS: AMOXICILLIN/CLAVULANATE 875 MG TAB PO SCH (17:37)
[2021-02-14] MEDS: TAMSULOSIN HCL 0.4 MG CAP PO SCH (20:08)
[2021-02-14] MEDS: ENOXAPARIN INJ 40 MG/0.4 ML SYR SQ SCH (20:11)
--- NOTE | 2021-02-14 21:49 | Hospitalist Progress Note ---
Date of Service February 14, 2021 Assessment & Plan (1) Acute and chronic respiratory failure with hypoxia: Plan: 85 y/o male w/ PMHx of COPD and hospitalization last year for pneumonia who presents w/ acute on chronic hypoxemic resp failure 2/2 RLL pneumonia. Stable. - per imaging, elevated wbc 24, 38.1C, and tachycardia on admission. RLL opacities appears milder than cxr from last admission (02/19/20). - continue Zosyn, narrow when cultures result - Blood cultures GPC 1/2 (awaiting final identification. ordered sputum cultures (pending), Nasal MRSA negative - most likely secondary to PNA (unclear if blood cultures are contaminant - Urine culture - alpha strep, doubtful source unless same bacteria in blood -will continue antibiotics as stated above. (2) Sepsis: Plan: POA. Treatment as above. (3) COPD (chronic obstructive pulmonary disease): Plan: - see above. in lieu of home regimen, will provide pulmcort respules+duoneb, both chosen for nebulizer route - continue IV solu-medrol 40mg IV BID, switch to presnidone 40mg PO daily tomorrow - phlegmy cough and mucous-sounding. flutter valve, incentive spirometry, Mucin ex 1200mg BID (4) Pneumonia: Plan: - see above (5) Hypertension: Plan: - continue home amlodipine (6) Anemia: Plan: - stable, chronic, takes iron supp at home, home temporarily this admission (7) GERD (gastroesophageal reflux disease): Plan: - continue home PPI (8) Vitamin D deficiency: Plan: - 2/2 parathyroidectomy for hx of hyperparathyroidism. continue home calcitriol (9) Colostomy care: Plan: - routine care, appears funcitonal adn w/o signs of infection. (10) Short-term memory loss: Plan: Patient has no capacity to leave the hospital. This is longstanding per his granddaughter in law who has POA. Plan: FEN/GI: Low Na diet. Aspiration precautions. code: full ppx: SCDs+SQ Lovenox 40mg daily Admission and Anticipated Discharge Date Admission Date: February 11, 2021 Subjective Patient has no new complaints. Review of Systems Review of Systems: All systems reviewed & are unremarkable except as noted in HPI & below Physical Exam Physical Exam: Constitutional:L well developed; + not well nourished and no acute dist ress Respiratory: normal respiratory effort; no respir atory distress Au scultation: + rhon chi (throughout, i mproved from yeste rday) Cardiovascular:L Rate/Rhythm: regul ar rate and regula r rhythm Heart So unds: no murmur E xtremities: normal capillary refill; no calf tendernes s and no pedal susi ma Gastrointestinal ( Abdomen): normal bowel sound s, soft, nontender , no hepatosplenom egaly Musculoskeletal: no cyanosis or clu bbing, extremities motor strength 5/ 5 Skin: no rashes, warm an d dry Neurologic: moves all extremit ies, awake and + c onfused (clear aranza rt term memory def icit) Psychiatric: Orientation: alert and oriented to p erson (self); + no t oriented to plac e and + not orient ed to time Results & Data Results & Data ([facility]) Vital Signs (Past 12 Hours) Vital Signs Temp Pulse Resp BP Pulse Ox 02/14/21 19:17 85 18 95 02/14/21 16:22 97 02/14/21 16:00 36.5 C 71 18 157/67 H 96 02/14/21 14:58 80 18 96 02/14/21 11:16 83 18 93 PG Care Time/CCT Total # of Minutes Spent Total Time Spent with Patient: Total time spent is greater than 50% in coordination of care (as documented) at patient's floor/unit and/or counseling patient: Coding Level of Care Code 33232 Subseq Hosp Care Lvl 2 Diagnoses Acute and chronic respiratory failure with hypoxia J96.21 Sepsis A41.9 COPD (chronic obstructive pulmonary disease) J44.9 Pneumonia J18.9 Laterality: right Lung location: lower lobe of lung Pneumonia type: due to unspecified organism Hypertension I10 Anemia D64.9 GERD (gastroesophageal reflux disease) K21.9 Vitamin D deficiency E55.9 Colostomy care Z43.3 Short-term memory loss R41.3 (1) Pneumonia Laterality: right Lung location: lower lobe of lung Pneumonia type: due to unspecified organism Qualified Code(s): J18.9 - Pneumonia, unspecified organism
[2021-02-15] MEDS: ALBUT/IPRATROP 3MG/0.5MG NEB 3 ML VIAL NEB SCH ×4 (06:09→19:58)
[2021-02-15] MEDS: BUDESONIDE 0.5 MG/2 ML VIAL (PULMICORT) NEB SCH ×2 (06:10→19:58)
[2021-02-15 06:56] LABS: Basophils # (auto) 0.01 K/uL (0-0.2); Basophils % (auto) 0.1 %; Eosinophils # (auto) 0.07 K/uL (0-0.5); Eosinophils % (auto) 0.8 %; Hematocrit (blood only) 38.1 % (42-52); Immature Granulocytes # (auto) 0.04 K/uL (0.00-0.02); Immature Granulocytes % (auto) 0.4 %; Lymphocytes # (auto) 0.82 K/uL (1.2-3.4); Mean Corpuscular Hemoglobin 29.1 pg (25-34); Mean Corpuscular Hgb Conc 31.5 g/dL (32-36); Mean Corpuscular Volume 92.5 fL (80-100); Monocytes # (auto) 1.11 K/uL (0.11-0.59); Monocytes % (auto) 12.1 %; Neutrophils # (auto) 7.09 K/uL (1.4-6.5); Neutrophils % (auto) 77.6 %; Platelet Count 310 K/uL (130-400); RDW Coefficient of Variation 13.9 % (11.5-14.5); Red Blood Count 4.12 M/uL (4.7-6.1); White Blood Count 9.14 K/uL (4.8-10.8)
[2021-02-15 08:13] LABS: BUN Creatinine Ratio 27.7 (10-20); Calcium 9.4 mg/dl (8.5-10.1); Creatinine Clr Calc Pharmacy 59.7 ml/min; Est GFR (African American) 97.2 ml/min; Est GFR (Non-African American) 83.9 ml/min; Potassium 3.5 mmol/L (3.5-5.1)
[2021-02-15] MEDS: AMOXICILLIN/CLAVULANATE 875 MG TAB PO SCH ×2 (08:32→16:44)
[2021-02-15] MEDS: PANTOprazole 40 MG TAB PO SCH ×2 (08:33→22:00)
[2021-02-15] MEDS: DOCUSATE SODIUM 100 MG CAP PO SCH ×2 (08:33→22:00)
[2021-02-15] MEDS: CALCITRIOL 0.25 MCG CAPSULE PO SCH (08:34)
[2021-02-15] MEDS: predniSONE 20 MG TAB PO SCH (08:34)
[2021-02-15] MEDS: amLODIPine BESYLATE 5 MG TAB PO SCH (08:34)
[2021-02-15] MEDS: AZITHROMYCIN 250 MG TAB PO SCH (08:34)
[2021-02-15] MEDS: guaiFENesin 600 MG TABCR PO SCH ×2 (08:34→22:00)
[2021-02-15] MEDS: FINASTERIDE 5 MG TAB PO SCH (08:34)
[2021-02-15] MEDS: CALCIUM CARBONATE 500 MG CHEWABLE TAB PO SCH ×2 (08:34→21:59)
[2021-02-15] MEDS: FLUTICASONE/VILANTEROL 200/25MCG 14 PUFFS/INHALER INH SCH (08:35)
--- NOTE | 2021-02-15 21:58 | Hospitalist Progress Note ---
Date of Service February 15, 2021 Assessment & Plan (1) Acute and chronic respiratory failure with hypoxia: Plan: 85 y/o male w/ PMHx of COPD and hospitalization last year for pneumonia who presents w/ acute on chronic hypoxemic resp failure 2/2 RLL pneumonia. Stable. - per imaging, elevated wbc 24, 38.1C, and tachycardia on admission. RLL opacities appears milder than cxr from last admission (02/19/20). - continue Zosyn, narrow when cultures result - Blood cultures GPC 1/2 (awaiting final identification. ordered sputum cultures (pending), Nasal MRSA negative - most likely secondary to PNA (unclear if blood cultures are contaminant - Urine culture - alpha strep, doubtful source unless same bacteria in blood -Patient is now on augmentin. -Patient continues to improve. -will continue antibiotics as stated above. Updated son, and will likely discharge in the AM. (2) Sepsis: Plan: POA. Treatment as above. (3) COPD (chronic obstructive pulmonary disease): Plan: - see above. in lieu of home regimen, will provide pulmcort respules+duoneb, both chosen for nebulizer route - continue IV solu-medrol 40mg IV BID, switch to presnidone 40mg PO daily tomorrow - phlegmy cough and mucous-sounding. flutter valve, incentive spirometry, Mucinex 1200mg BID (4) Pneumonia: Plan: - see above (5) Hypertension: Plan: - continue home amlodipine (6) Anemia: Plan: - stable, chronic, takes iron supp at home, home temporarily this admission (7) GERD (gastroesophageal reflux disease): Plan: - continue home PPI (8) Vitamin D deficiency: Plan: - 2/2 parathyroidectomy for hx of hyperparathyroidism. continue home calcitriol (9) Colostomy care: Plan: - routine care, appears funcitonal adn w/o signs of infection. (10) Short-term memory loss: Plan: Patient has no capacity to leave the hospital. This is longstanding per his granddaughter in law who has POA. Plan: FEN/GI: Low Na diet. Aspiration precautions. code: full ppx: SCDs+SQ Lovenox 40mg daily Admission and Anticipated Discharge Date Admission Date: February 11, 2021 Subjective Patient reports no new symptoms. Review of Systems Review of Systems: All systems reviewed & are unremarkable except as noted in HPI & below Physical Exam Physical Exam: Constitutional: well developed; + not well nourished and no acute distress Respiratory: normal respiratory effort; no respiratory distress Auscultation: clear (throughout, improved from yesterday) Cardiovascular: Rate/Rhythm: regular rate and regular rhythm Heart Sounds: no murmur Extremities: normal capillary refill; no calf tenderness and no pedal edema Gastrointestinal (Abdomen): normal bowel sounds, soft, nontender, no hepatosplenomegaly Musculoskeletal: no cyanosis or clubbing, extremities motor strength 5/5 Skin: no rashes, warm and dry Neurologic: moves all extremities, awake and + confused (clear short term memory deficit) Psychiatric: Orientation: alert and oriented to person (self); + not oriented to place and + not oriented to time Results & Data Results & Data ([facility]) Vital Signs (Past 12 Hours) Vital Signs Temp Pulse Resp BP Pulse Ox 02/15/21 20:03 8 L 12 93 02/15/21 15:25 36.5 C 82 20 132/78 96 02/15/21 15:04 17 96 02/15/21 10:43 77 17 97 PG Care Time/CCT Total # of Minutes Spent Total Time Spent with Patient: Total time spent is greater than 50% in coordination of care (as documented) at patient's floor/unit and/or counseling patient: Coding Level of Care Code 67846 Subseq Hosp Care Lvl 2 Diagnoses Acute and chronic respiratory failure with hypoxia J96.21 Sepsis A41.9 COPD (chronic obstructive pulmonary disease) J44.9 Pneumonia J18.9 Laterality: right Lung location: lower lobe of lung Pneumonia type: due to unspecified organism Hypertension I10 Anemia D64.9 GERD (gastroesophageal reflux disease) K21.9 Vitamin D deficiency E55.9 Colostomy care Z43.3 Short-term memory loss R41.3 (1) Pneumonia Laterality: right Lung location: lower lobe of lung Pneumonia type: due to unspecified organism Qualified Code(s): J18.9 - Pneumonia, unspecified organism
[2021-02-15] MEDS: TAMSULOSIN HCL 0.4 MG CAP PO SCH (22:01)
[2021-02-15] MEDS: ENOXAPARIN INJ 40 MG/0.4 ML SYR SQ SCH (22:01)
[2021-02-16] MEDS: BUDESONIDE 0.5 MG/2 ML VIAL (PULMICORT) NEB SCH (07:31)
[2021-02-16] MEDS: ALBUT/IPRATROP 3MG/0.5MG NEB 3 ML VIAL NEB SCH ×2 (07:31→11:08)
[2021-02-16] MEDS: AMOXICILLIN/CLAVULANATE 875 MG TAB PO SCH (08:10)
[2021-02-16] MEDS: amLODIPine BESYLATE 5 MG TAB PO SCH (08:10)
[2021-02-16] MEDS: CALCITRIOL 0.25 MCG CAPSULE PO SCH (08:11)
[2021-02-16] MEDS: CALCIUM CARBONATE 500 MG CHEWABLE TAB PO SCH (08:11)
[2021-02-16] MEDS: DOCUSATE SODIUM 100 MG CAP PO SCH (08:11)
[2021-02-16] MEDS: FINASTERIDE 5 MG TAB PO SCH (08:11)
[2021-02-16] MEDS: AZITHROMYCIN 250 MG TAB PO SCH (08:11)
[2021-02-16] MEDS: PANTOprazole 40 MG TAB PO SCH (08:12)
[2021-02-16] MEDS: guaiFENesin 600 MG TABCR PO SCH (08:12)
[2021-02-16] MEDS: predniSONE 20 MG TAB PO SCH (08:12)
[2021-02-16] MEDS: FLUTICASONE/VILANTEROL 200/25MCG 14 PUFFS/INHALER INH SCH (08:12)
[2021-02-16 08:50] LABS: Hematocrit (blood only) 39.4 % (42-52); Hemoglobin 12.7 g/dL (14.0-18.0); Mean Corpuscular Hemoglobin 29.7 pg (25-34); Mean Corpuscular Hgb Conc 32.2 g/dL (32-36); Mean Corpuscular Volume 92.3 fL (80-100); Platelet Count 299 K/uL (130-400); RDW Coefficient of Variation 13.8 % (11.5-14.5); RDW Standard Deviation 46.8 fL (36.4-46.3); Red Blood Count 4.27 M/uL (4.7-6.1); White Blood Count 8.54 K/uL (4.8-10.8)
[2021-02-16 09:16] LABS: BUN Creatinine Ratio 24.5 (10-20); Calcium 9.6 mg/dl (8.5-10.1); Creatinine Clr Calc Pharmacy 48.9 ml/min; Est GFR (African American) 89.5 ml/min; Est GFR (Non-African American) 77.2 ml/min; Potassium 3.8 mmol/L (3.5-5.1)
--- NOTE | 2021-02-16 11:33 | Discharge Summary ---
Date of Service February 16, 2021 Admission HPI Per Admitting Provider Ford Kumari is an 85 y/o male w/ PMHx of HTN, COPD on 2-2.5L, GERD, and colostomy who presents w/ worsening cough and dyspnea x 2 weeks (not worsening, but is lingering). Also has fatigue and poor appetite. 89% on EMS arrival on home 2L. Febrile to 28C and tachycardic to 100. Patient states main concerning his family is his cough. Cough is productive, he has not looked at color. He has not heard wheezing. Denies hx of VTE or cancer. No current pain. He thinks he took his AM meds today, but notes he occasionally forgets. His family occasionally helps. He is not in any pain and currently denies respiratory complaint. Denies aspiration concerns. Distant 2 pack year tobacco hx. Not covid vaccinated. [facility] pulm visit 09/07/20 telemedicine. KINNEY on minimal exertion. Not covid immunized. Lives w/ . Advair and combivent. 02/2020 [facility] admission for community acquired pneumonia. cxr w/ RLL airspace opacity. ED course: zosyn. albuterol neb. Mucinex. 125mg IVmethylpred. 1L NSS. WBC 24.38. 38.1C temp. Tachy to 110s, improved. ecg sinus tach Slightly poor historian, likely has mild baseline memory problems. Principal Diagnosis Acute and chronic hypoxic respiratory failure Discharge Exam Constitutional: well developed; + not well nourished and no acute distress Respiratory: normal respiratory effort; no respiratory distress Auscultation: clear (throughout, improved from yesterday) Cardiovascular: Rate/Rhythm: regular rate and regular rhythm Heart Sounds: no murmur Extremities: normal capillary refill; no calf tenderness and no pedal edema Gastrointestinal (Abdomen): normal bowel sounds, soft, nontender, no hepatosplenomegaly Musculoskeletal: no cyanosis or clubbing, extremities motor strength 5/5 Skin: no rashes, warm and dry Neurologic: moves all extremities, awake and + confused (clear short term memory deficit) Psychiatric: Orientation: alert and oriented to person (self); + not oriented to place and + not oriented to time Discharge Data Allergies Allergy/AdvReac Type Severity Reaction Status Date / Time morphine AdvReac Severe Agitated Verified 02/11/21 15:31 Consultations 02/11/21 17:03 ED Decision to Admit Stat Hospital Course (1) Acute and chronic respiratory failure with hypoxia: 85 y/o male w/ PMHx of COPD and hospitalization last year for pneumonia who presents w/ acute on chronic hypoxemic resp failure 2/2 RLL pneumonia. Stable. - per imaging, elevated wbc 24, 38.1C, and tachycardia on admission. RLL opacities appears milder than cxr from last admission (02/19/20). - continue Zosyn, narrow when cultures result - Blood cultures GPC / (awaiting final identification. ordered sputum cultures (pending), Nasal MRSA negative - most likely secondary to PNA (unclear if blood cultures are contaminant - Urine culture - alpha strep, doubtful source unless same bacteria in blood -Patient is now on augmentin. -Patient continues to improve. -will continue antibiotics as stated above. Updated son, and will discharge patient. Meds for discharge stated below (2) Sepsis: POA. Treatment as above. (3) COPD (chronic obstructive pulmonary disease): - see above. in lieu of home regimen, will provide pulmcort respules+duoneb, both chosen for nebulizer route - continue IV solu-medrol 40mg IV BID, switch to presnidone 40mg PO daily tomorrow - phlegmy cough and mucous-sounding. flutter valve, incentive spirometry, Mucinex 1200mg BID (4) Pneumonia: - see above (5) Hypertension: - continue home amlodipine (6) Anemia: - stable, chronic, takes iron supp at home, home temporarily this admission (7) GERD (gastroesophageal reflux disease): - continue home PPI (8) Vitamin D deficiency: - 2/2 parathyroidectomy for hx of hyperparathyroidism. continue home calcitriol (9) Colostomy care: - routine care, appears funcitonal adn w/o signs of infection. (10) Short-term memory loss: Patient has no capacity to leave the hospital. This is longstanding per his granddaughter in law who has POA. (11) Protein calorie malnutrition: protein-calorie malnutrition with BMI 18 FEN/GI: Low Na diet. Aspiration precautions. code: full ppx: SCDs+SQ Lovenox 40mg daily Total Time Total Time Spent Total Time Spent (In Minutes): 32 Discharge Plan Discharge Items Patient Disposition: Home - Self-Care Reason For Visit: PNEUMONIA Discharge Diagnosis: Pneumonia Activity: Resume your previous activity Non-emergency contact: Primary Care Provider Call non-emergency contact if: you have any medication questions Follow-up/Referrals: Mateus Boyd MD [Primary Care Provider] - 02/28/21 2:00 pm Diet: Low Sodium (2gm) Addtl Attending Provider Instructions: You have been hospitalized for an acute medical problem. During your stay at [facility], we have made an effort to correct the problem that brought you to the hospital while keeping you as comfortable as possible. Medications were used to bring your condition under control and your discharge instructions will include directions for any medications you should take after leaving the hospital. Please make sure you see your Primary Care Provider as part of your follow up plan. Pending Studies at Discharge: No Stand-Alone Forms: My [facility], Smoking Cessation Medications and DC Order Prescriptions: New amoxicillin-pot clavulanate [Augmentin] 875-125 mg Tablet 1 tab PO BIDM Qty: 9 RF: 0 azithromycin 250 mg Tablet 250 mg PO QAM Qty: 1 RF: 0 guaifenesin [Mucinex] 600 mg Tablet Extended Release 12hr 1,200 mg PO Q12 7 Days Qty: 28 RF: 0 prednisone 10 mg tablet 10 mg PO DAILY Qty: 12 RF: 0 Continued guaifenesin 600 mg tablet extended release 12hr 600 mg PO BID Qty: 60 RF: 0 ipratropium-albuterol 0.5 mg-3 mg(2.5 mg base)/3 mL solution for nebulization 3 ml inhalation Q6H PRN (Reason: wheezing) Qty: 90 RF: 0 tamsulosin 0.4 mg capsule 0.4 mg PO HS Qty: 90 RF: 3 finasteride 5 mg tablet 5 mg PO DAILY Qty: 90 RF: 3 (DME) ostomy supplies Misc See Rx Instructions .ROUTE .MEDSUPPLY Qty: 1 RF: 0 Combivent Respimat 20-100 mcg/actuation mist 1 puff INHALATION QID Qty: 4 RF: 3 pantoprazole 40 mg tablet,delayed release (DR/EC) 40 mg PO BID Qty: 60 RF: 11 calcium carbonate [Tums Ultra] 400 mg calcium (1,000 mg) tablet,chewable 400 mg PO BID RF: 0 calcitriol 0.25 mcg capsule 0.25 mcg PO DAILY Qty: 30 RF: 5 fluticasone propion-salmeterol [Advair Diskus] 250-50 mcg/dose blister with device 1 inh INHALATION BID Qty: 60 RF: 5 ferrous sulfate [iron] 325 mg (65 mg iron) Tablet 325 mg PO UD RF: 0 docusate sodium 100 mg Capsule 200 mg PO BID RF: 0 Saccharomyces boulardii [Florastor] 250 mg Capsule 250 mg PO UD RF: 0 Centrum Silver 0.4-300-250 mg-mcg-mcg Tablet 1 tab PO DAILY RF: 0 Changed amlodipine 10 mg tablet 5 mg PO PM Qty: 90 RF: 3 Discharge Orders: Discharge Order (Routine); Ordered 02/16/21 Ordered By: Floyd Sharma Admission Data Admit Date/Time: 02/11/21 19:02 Attending Provider: Floyd Sharma Admit Provider: Primo Arcos Primary Care Provider: Mateus Boyd Other Providers: Ford Limon Other Interventions: Discharge Summary Assessment (RN) Last Done: 02/16/21 12:24 Coding Level of Care Code D/C DAY MANAGEMENT >30 MINS Diagnoses Acute and chronic respiratory failure with hypoxia J96.21 Sepsis A41.9 COPD (chronic obstructive pulmonary disease) J44.9 Pneumonia J18.9 Laterality: right Lung location: lower lobe of lung Pneumonia type: due to unspecified organism Hypertension I10 Anemia D64.9 GERD (gastroesophageal reflux disease) K21.9 Vitamin D deficiency E55.9 Colostomy care Z43.3 Short-term memory loss R41.3 Protein calorie malnutrition E46
--- NOTE | 2021-02-23 11:42 | Coding Query ---
To promote full compliance with coding requirements relating to patient care, provider participation is requested in all cases of surgical coder uncertainty. Please assist us with the question(s) below: Coding Question(s): The diagnosis(es) below was documented in the (surgical coder fill out source document ie H&P, progress notes, etc.) then subsequently fell off all further documentation. Please indicate if it is still a possible diagnosis or ruled out. Physician's Response(s): UTI (documented on ER only, there is documentation in PN an DS of Urine Culture - alpha strep) ( ) Diagnosed and POA ( ) Diagnosed and not POA ( x ) Ruled out ( ) Other (please specify) ASPIRATION PNEUMONIA (documented on ER only - the rest of chart documents RLL pneumonia but no mention of Aspiration Pneumonia) (x) Diagnosed and POA ( ) Diagnosed and not POA ( ) Ruled out ( ) Other (please specify) MTDD
--- NOTE | 2021-02-23 11:46 | Coding Query ---
CODING QUERY To promote full compliance with coding requirements relating to patient care, provider participation is requested in all cases of medical billing coder uncertainty. Please assist us with the question(s) below: Coding Question(s): Sepsis is documented throughout the record. Please specify below, in your clinical opinion, to specify the most likely source of Sepsis. (x ) most likely source of Sepsis is Aspiration Pneumonia ( ) most likely source of Sepsis is UTI ( ) most likely source of Sepsis is Other: Please Specify ( ) most likely source of Sepsis is Unknown Physician's Response(s): Thank you Galilea Morales Principal Diagnosis: "that condition established after study, to be chiefly responsible for occasioning the admission of the patient to the hospital for care." Co-Existing Principal Diagnosis: "when two or more diagnoses equally meet the criteria for principal diagnosis as determined by the circumstances of admission, diagnostic work up, and/or therapy provided, and the Alphabetic Index, Tabular List, or another coding guideline does not provide sequencing direction, any one of the diagnoses may be sequenced first." "When the physician has documented what appears to be a current diagnosis in the body of the record, but has not included the diagnosis in the final diagnostic statement, the physician should be asked whether the diagnosis should be added." (Source [facility]oding [facility] 2 QTR90. p3-4) RODERICK
== END 2021-02-16 13:15 | disposition home or self-care (01) | DRG 871 ==
LOC: ED 14:15 → SUATTDRO 19:02 → 2N 19:02

== ENCOUNTER 2021-05-22 10:46 | Inpatient (IN) ==
--- NOTE | 2021-05-22 11:03 | Emergency Department Note ---
Impression & Plan Acute and chronic respiratory failure with hypoxia, Anemia, Hypertension, COPD exacerbation ED Provider Note NAME: KAMI LABOY Jr AGE: 86 SEX: M : 1935 ARRIVES VIA: Ambulance INFORMANT: Patient, ED PROVIDER(S): Dwight Robles MD Chief Complaint: Shortness of breath HPI: Patient presents due to concern for shortness of breath. At the bedside the patient denies shortness of breath and believes that he is taking his medications but the granddaughter with whom he lives this stating that he had significant difficulty with breathing was unable to get up out of his chair. Patient had been put on 2 to 2-1/2 L at discharge during his most rest laceration stay but they increased him to 4 L at home. No history of COPD and former smoker. Patient does have cough but nonproductive. No lower extremity swelling. Patient was malnourished and not eating well. No nausea vomiting fevers or chills. No chest pains. Patient is not vaccinated for Covid or flu. Patient reportedly has been stating that he wants to kill himself. Granddaughter has removed guns and any other items out of the room but she is concerned about his mental wellness. No urinary symptoms nausea vomiting or abdominal pain. Patient denies any dysuria or additional issues with defecation. ROS: See HPI for pertinent positives and negatives. A total of 10 systems were reviewed and otherwise negative. Past medical history: See below Surgical history: See below Social history: See below Physical Exam: GENERAL: Thin in appearance, wearing glasses, nasal cannula in place EYE EXAM: Normal conjunctiva. PERRL, no anisocoria and EOM's grossly intact w/o pain. NECK: Supple, no nuchal rigidity, no adenopathy, non-tender. No signs of meningismus. LUNGS: Decreased breath sounds throughout with scant wheezing. Normal chest w all mechanics. HEART: NSR, no MRG. ABDOMEN: Abdomen soft, non-tender, normo-active bowel sounds, no masses, no rebound or guarding. BACK: No CVA TTP. SKIN: No rashes and no bruising. UPPER EXTREMITIES: Upper extremities are grossly normal. LOWER EXTREMITIES: Grossly normal, no edema. Negative Homans' sign bilaterally. NEURO EXAM: A&O x3, cranial nerves II-XII grossly intact, normal speech, moves all 4 extremities on command w/o issue. Differential diagnoses: Reactive airway disease, pneumonia, pneumothorax, COPD, CHF, infections, cardiac ischemia, pulmonary embolism, musculoskeletal, gastroi ntestinal, as well as other pathologies. Course: Patient was seen and evaluated the bedside. Full history physical exam was performed. EKG interpreted by me Normal sinus rhythm, rate of 76, normal intervals, left axis deviation, to inversion in aVL. Imaging Studies: See Below Cardiac monitoring: An order was placed for continuous cardiac monitoring. The monitor shows a rate of 72 with sinus rhythm. MDM: Patient was seen due to concern for functional dyspnea, failure to thrive as well as reported SI. Blood work was obtained and the patient was treated symptomatically. Patient has a normal white count with mild anemia at 13. Platelet count is unremarkable. Patient does have very mild hypercarbia with PCO2 of 60 VBG pH is 7.34. BUN to creatinine ratio is elevated. Troponin not detectable. Covid negative. The patient did receive treatments including steroids mag and DuoNeb treatments. The patient did appear improved. Given the patient's functional dyspnea failure to thrive inability to care at home as well as COPD exacerbation I did speak the on-call hospitalist. Patient was admitted by Dr. Todd. Past Med/Surg History Medical History Colostomy complication Colostomy complication COPD (chronic obstructive pulmonary disease) Hyperparathyroidism Hypertension Pneumonia Pneumoperitoneum Sepsis Surgical History History of colon resection Family History Denies family history of Ovarian cancer Prostate cancer Myocardial infarction Breast cancer Colorectal cancer Social History Smoking Status: Former smoker Tobacco Type: Cigarettes Age Started Using Tobacco: 19; Age Quit Using Tobacco: 23; packs per day: 0.5; Second Hand Exposure: No; Hx Alcohol Use: No Hx Substance Use: No Preferred Language: German Communication Ability: Effective Visual Impairment: No Limitations Hearing Ability: Normal Molecular Technologist Required: No Beliefs That Will Affect Care: None marital status: Current Living Situation: Spouse and Family Current Living Situation Comment: grandchildren; in assisted living? 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 Feels Safe at Home: Yes Childhood Exposure to Second-Hand Smoke: Yes Dental Care, Regularly: No Physical Activity Frequency: Does not Exercise Seatbelt Use: always Sunscreen Use: No Assistive Devices: Glasses, Oxygen - Continuous and Walker Immunizations: Not vaccinated for COVID-19 Allergies Allergies Allergy/AdvReac Type Severity Reaction Status Date / Time morphine AdvReac Severe Agitated Verified 02/11/21 15:31 Home Meds Home Medications Medication Instructions Recorded Confirmed Saccharomyces boulardii 250 mg 250 mg PO UD 04/23/18 05/22/21 capsule (Florastor) docusate sodium 100 mg capsule 200 mg PO BID 04/23/18 05/22/21 ferrous sulfate 325 mg (65 mg 325 mg PO UD 04/23/18 05/22/21 iron) tablet (iron) jhznsnfs-wep-yqhuz acid 0.4 1 tab PO DAILY 04/23/18 05/22/21 mg-lycopene 300 mcg-lutein 250 mcg tablet (Centrum Silver) calcium carbonate 400 mg calcium 400 mg PO BID tab 07/07/20 05/22/21 (1,000 mg) chewable tablet (Tums Ultra) Previous Rx's Medication Instructions Recorded guaifenesin 600 mg tablet, 600 mg PO BID #60 tab 12/05/19 extended release 12 hr fluticasone 250 mcg-salmeterol 50 1 inh INHALATION BID #60 ea 05/10/20 mcg/dose blistr powdr for inhalation (Advair Diskus) pantoprazole 40 mg tablet,delayed 40 mg PO BID #60 tab 01/06/21 release amlodipine 10 mg tablet 5 mg PO PM #90 tab 02/16/21 finasteride 5 mg tablet 5 mg PO DAILY #90 tab 03/09/21 tamsulosin 0.4 mg capsule 0.4 mg PO HS #90 cap 03/14/21 calcitriol 0.25 mcg capsule 0.25 mcg PO DAILY #30 cap 03/15/21 Results & Data (ED) Vital Signs Vital Signs - 24 hr 05/22/21 11:01 05/22/21 11:32 05/22/21 11:35 Temperature 37.0 C Temperature Source Oral Pulse Rate 78 Pulse Rate [Apical] Pulse Rate from SpO2 Sensor Respiratory Rate 17 Respiratory Effort / Characteristics Non-Labored Spontaneous Respiratory Depth Normal Respiratory Pattern Regular Blood Pressure 203/103 H Blood Pressure [Right Arm] Blood Pressure Mean 136 Blood Pressure Mean [Right Arm] Blood Pressure Position Lying Pulse Oximetry 99 99 Oxygen Delivery Method Nasal Cannula Nasal Cannula Nasal Cannula Oxygen Flow Rate 4 4 4 Fraction of Inspired Oxygen Sepsis Recent Fever Within 48 Hours No Sepsis New/Unexplained Change in Mental Status N/A Sepsis Action Taken by Nursing No Action Required 05/22/21 11:41 05/22/21 12:00 05/22/21 12:22 Temperature Temperature Source Pulse Rate 69 Pulse Rate [Apical] 73 69 Pulse Rate from SpO2 Sensor 67 Respiratory Rate 20 14 16 Respiratory Effort / Characteristics Spontaneous Respiratory Depth Respiratory Pattern Blood Pressure 190/92 H Blood Pressure [Right Arm] 180/100 H Blood Pressure Mean 124 Blood Pressure Mean [Right Arm] 126 Blood Pressure Position Pulse Oximetry 99 97 98 Oxygen Delivery Method Nasal Cannula Nasal Cannula Nasal Cannula Oxygen Flow Rate 3 4 3 Fraction of Inspired Oxygen Sepsis Recent Fever Within 48 Hours Sepsis New/Unexplained Change in Mental Status Sepsis Action Taken by Nursing 05/22/21 12:30 05/22/21 13:00 05/22/21 13:30 Temperature Temperature Source Pulse Rate 68 70 77 Pulse Rate [Apical] Pulse Rate from SpO2 Sensor 68 70 78 Respiratory Rate 14 15 20 Respiratory Effort / Characteristics Respiratory Depth Respiratory Pattern Blood Pressure 159/111 H 176/79 H Blood Pressure [Right Arm] Blood Pressure Mean 127 111 Blood Pressure Mean [Right Arm] Blood Pressure Position Pulse Oximetry 100 100 100 Oxygen Delivery Method Nebulizer Nebulizer Nasal Cannula Oxygen Flow Rate 4 Fraction of Inspired Oxygen Sepsis Recent Fever Within 48 Hours Sepsis New/Unexplained Change in Mental Status Sepsis Action Taken by Nursing 05/22/21 14:00 05/22/21 14:31 05/22/21 15:00 Temperature Temperature Source Pulse Rate 86 87 88 Pulse Rate [Apical] Pulse Rate from SpO2 Sensor 84 86 89 Respiratory Rate 18 16 15 Respiratory Effort / Characteristics Respiratory Depth Respiratory Pattern Blood Pressure 168/85 H 163/81 H 147/82 H Blood Pressure [Right Arm] Blood Pressure Mean 112 108 103 Blood Pressure Mean [Right Arm] Blood Pressure Position Pulse Oximetry 97 99 98 Oxygen Delivery Method Nasal Cannula Nasal Cannula Nasal Cannula Oxygen Flow Rate 2.5 2.5 Fraction of Inspired Oxygen 4 Sepsis Recent Fever Within 48 Hours Sepsis New/Unexplained Change in Mental Status Sepsis Action Taken by Nursing 05/22/21 15:30 05/22/21 16:00 05/22/21 16:44 Temperature Temperature Source Pulse Rate 87 81 81 Pulse Rate [Apical] Pulse Rate from SpO2 Sensor 82 Respiratory Rate 18 18 18 Respiratory Effort / Characteristics Respiratory Depth Respiratory Pattern Blood Pressure 142/75 H Blood Pressure [Right Arm] Blood Pressure Mean 97 Blood Pressure Mean [Right Arm] Blood Pressure Position Pulse Oximetry 99 97 Oxygen Delivery Method Nasal Cannula Nasal Cannula Oxygen Flow Rate 2.5 2 Fraction of Inspired Oxygen Sepsis Recent Fever Within 48 Hours Sepsis New/Unexplained Change in Mental Status Sepsis Action Taken by [facility] Medications Current Medication List: was personally reviewed by me Laboratory Data Attestation: I reviewed the patient's lab results. Result diagrams: 05/22/21 12:31 05/22/21 12:31 Lab Results 05/22/21 05/22/21 05/22/21 Range/Units 11:45 12:31 12:31 WBC 6.18 (4.8-10.8) K/uL RBC 4.32 L (4.7-6.1) M/uL Hgb 13.0 L (14.0-18.0) g/dL Hct 41.3 L (42-52) % MCV 95.6 (80-100) fL MCH 30.1 (25-34) pg MCHC 31.5 L (32-36) g/dL RDW Std Deviation 51.4 H (36.4-46.3) fL RDW Coeff of Syl 14.4 (11.5-14.5) % Plt Count 186 (130-400) K/uL MPV 10.7 H (7.4-10.4) fL Immature Gran % (Auto) 0.2 % Neut % (Auto) 68.5 % Lymph % (Auto) 16.0 % Dooly % (Auto) 10.7 % Eos % (Auto) 2.8 % Baso % (Auto) 1.8 % Neut # (Auto) 4.24 (1.4-6.5) K/uL Lymph # (Auto) 0.99 L (1.2-3.4) K/uL Dooly # (Auto) 0.66 H (0.11-0.59) K/uL Eos # (Auto) 0.17 (0-0.5) K/uL Baso # (Auto) 0.11 (0-0.2) K/uL Immature Gran # (Auto) 0.01 (0.00-0.02) K/uL VBG pH (7.36-7.41) VBG pCO2 (38-50) mmHg VBG pO2 mmHg VBG HCO3 mmol/L VBG O2 Saturation % VBG Base Excess mEq/L Barometric Pressure mm/Hg Sodium 143 (136-145) mmol/L Potassium 4.4 (3.5-5.1) mmol/L Chloride 107 (98-107) mmol/L Carbon Dioxide 30 (21-32) mmol/L Anion Gap 6 (3-11) BUN 24 H (6-23) mg/dl Creatinine 0.79 (0.6-1.4) mg/dl Est Cr Clr Drug Dosing 51.2 ml/min Est GFR ( Amer) 92.9 ml/min Est GFR (Non-Af Amer) 80.2 ml/min BUN/Creatinine Ratio 30.4 H (10-20) Glucose 106 H (70-99(Fasting)) mg/dl Calcium 9.1 (8.5-10.1) mg/dl Total Bilirubin 0.4 (0.2-1.0) mg/dl AST 19 (13-39) U/L ALT 24 (7-52) U/L Alkaline Phosphatase 57 (34-104) U/L Troponin I < 0.03 (0-0.04) ng/ml Total Protein 6.3 (6.0-8.3) gm/dl Albumin 4.0 (3.4-5.0) gm/dl Globulin 2.3 L (2.5-4.0) gm/dl Albumin/Globulin Ratio 1.7 (0.9-2) SARS-CoV-2, RNA, NAAT NEGATIVE (NEGATIVE) 05/22/21 Range/Units 12:31 WBC (4.8-10.8) K/uL RBC (4.7-6.1) M/uL Hgb (14.0-18.0) g/dL Hct (42-52) % MCV (80-100) fL MCH (25-34) pg MCHC (32-36) g/dL RDW Std Deviation (36.4-46.3) fL RDW Coeff of Syl (11.5-14.5) % Plt Count (130-400) K/uL MPV (7.4-10.4) fL Immature Gran % (Auto) % Neut % (Auto) % Lymph % (Auto) % Dooly % (Auto) % Eos % (Auto) % Baso % (Auto) % Neut # (Auto) (1.4-6.5) K/uL Lymph # (Auto) (1.2-3.4) K/uL Dooly # (Auto) (0.11-0.59) K/uL Eos # (Auto) (0-0.5) K/uL Baso # (Auto) (0-0.2) K/uL Immature Gran # (Auto) (0.00-0.02) K/uL VBG pH 7.34 L (7.36-7.41) VBG pCO2 60 H (38-50) mmHg VBG pO2 22 mmHg VBG HCO3 32 mmol/L VBG O2 Saturation < 60.0 % VBG Base Excess 4.5 mEq/L Barometric Pressure 742.5 mm/Hg Sodium (136-145) mmol/L Potassium (3.5-5.1) mmol/L Chloride (98-107) mmol/L Carbon Dioxide (21-32) mmol/L Anion Gap (3-11) BUN (6-23) mg/dl Creatinine (0.6-1.4) mg/dl Est Cr Clr Drug Dosing ml/min Est GFR ( Amer) ml/min Est GFR (Non-Af Amer) ml/min BUN/Creatinine Ratio (10-20) Glucose (70-99(Fasting)) mg/dl Calcium (8.5-10.1) mg/dl Total Bilirubin (0.2-1.0) mg/dl AST (13-39) U/L ALT (7-52) U/L Alkaline Phosphatase (34-104) U/L Troponin I (0-0.04) ng/ml Total Protein (6.0-8.3) gm/dl Albumin (3.4-5.0) gm/dl Globulin (2.5-4.0) gm/dl Albumin/Globulin Ratio (0.9-2) SARS-CoV-2, RNA, NAAT (NEGATIVE) Administered Medications Discontinued Medications Albuterol (Albut/Ipratrop 3mg/0.5mg Neb 3 Ml Vial) 12 ml INH ONE STA Stop: 05/22/21 11:25 Last Admin: 05/22/21 12:22 Dose: 12 ml Documented by: [id number] Doxycycline Hyclate (Doxycycline Hyclate 100 Mg Cap) 100 mg PO NOW STA Stop: 05/22/21 14:56 Last Admin: 05/22/21 14:58 Dose: 100 mg Documented by: [id number] Sodium Chloride (Nss) 500 mls @ 999 mls/hr IV .Q31M STA Stop: 05/22/21 11:54 Last Infusion: 05/22/21 12:14 Dose: 0 mls/hr Documented by: [id number] Admin: 05/22/21 11:43 Dose: 999 mls/hr Documented by: [id number] Magnesium Sulfate/Dextrose (Magnesium Sulfate / D5w) 1 gm in 100 mls @ 100 mls/hr IV NOW STA Stop: 05/22/21 12:24 Last Infusion: 05/22/21 12:47 Dose: 0 mls/hr Documented by: [id number] Admin: 05/22/21 11:47 Dose: 100 mls/hr Documented by: [id number] Methylprednisolone (Methylprednisolone 125 Mg/2 Ml Vial) 60 mg IV NOW STA Stop: 05/22/21 11:25 Last Admin: 05/22/21 11:46 Dose: 60 mg Documented by: [id number] Imaging Data Radiologist's Impression: Chest X-Ray 05/22/21 11:24 XR chest 1V portable CLINICAL HISTORY: Dyspnea. Previous smoker COMPARISON STUDY: 02/11/2021 TECHNIQUE: 1 view of the chest FINDINGS: Single frontal view of the chest demonstrates the cardiomediastinal silhouette to be within normal limits. There is again hyperinflation of the lungs with attenuation of the pulmonary vasculature peripherally characteristic of underlying chronic obstructive pulmonary disease. Compared to previous study, there has been interval clearing of right lower lobe pneumonia. No acute alveolar opacities are identified. There is no evidence for pleural effusion. There is no evidence for vascular congestion. There is no acute osseous pathology. IMPRESSION: No acute cardiopulmonary disease. Moderate COPD. ACT 112: Negative or not required by law. Electronically signed by: Dmitry Gibson M.D. 05/22/2021 11:37 AM Discharge Plan Visit Data Chief Complaint: Shortness of Breath/Dyspnea Stated Complaint: SOB ED Provider: Travis,Dwight D. Discharge Problem: Acute and chronic respiratory failure with hypoxia, Anemia, Hypertension, COPD exacerbation Discharge Instructions Interventions: ED Discharge Assessment Last Done: 05/22/21 16:44 Forms Stand Alone Forms: My [facility] [place] [employer] Prescriptions Prescriptions: No Action guaifenesin 600 mg tablet extended release 12hr 600 mg PO BID Qty: 60 RF: 0 pantoprazole 40 mg tablet,delayed release (DR/EC) 40 mg PO BID Qty: 60 RF: 11 finasteride 5 mg tablet 5 mg PO DAILY Qty: 90 RF: 3 tamsulosin 0.4 mg capsule 0.4 mg PO HS Qty: 90 RF: 3 calcitriol 0.25 mcg capsule 0.25 mcg PO DAILY Qty: 30 RF: 5 calcium carbonate [Tums Ultra] 400 mg calcium (1,000 mg) tablet,chewable 400 mg PO BID RF: 0 fluticasone propion-salmeterol [Advair Diskus] 250-50 mcg/dose blister with device 1 inh INHALATION BID Qty: 60 RF: 5 ferrous sulfate [iron] 325 mg (65 mg iron) Tablet 325 mg PO UD RF: 0 docusate sodium 100 mg Capsule 200 mg PO BID RF: 0 Saccharomyces boulardii [Florastor] 250 mg Capsule 250 mg PO UD RF: 0 Centrum Silver 0.4-300-250 mg-mcg-mcg Tablet 1 tab PO DAILY RF: 0 amlodipine 10 mg tablet 5 mg PO PM Qty: 90 RF: 3 Referrals Referrals: Mateus Boyd MD [Primary Care Provider] -
[2021-05-22] MEDS ORDERED: SODIUM CHLORIDE 0.9% 500 ML IV STA (11:24)
[2021-05-22] MEDS ORDERED: methylPREDNISolone 125 MG/2 ML VIAL IV STA (11:24)
[2021-05-22] MEDS ORDERED: ALBUT/IPRATROP 3MG/0.5MG NEB 3 ML VIAL INH STA (11:24)
[2021-05-22] MEDS ORDERED: MAGNESIUM SULFATE / D5W 1 GM/100 ML BAG IV STA (11:25)
--- NOTE | 2021-05-22 11:39 | XRay Report ---
XR chest 1V portable CLINICAL HISTORY: Dyspnea. Previous smoker COMPARISON STUDY: 02/11/2021 TECHNIQUE: 1 view of the chest FINDINGS: Single frontal view of the chest demonstrates the cardiomediastinal silhouette to be within normal li mits. There is again hyperinflation of the lungs with attenuation of the pulmonary vasculature periph erally characteristic of underlying chronic obstructive pulmonary disease. Compared to previous study , there has been interval clearing of right lower lobe pneumonia. No acute alveolar opacities are erin ntified. There is no evidence for pleural effusion. There is no evidence for vascular congestion. The re is no acute osseous pathology. IMPRESSION: No acute cardiopulmonary disease. Moderate COPD. ACT 112: Negative or not required by law. Electronically signed by: Dmitry Gibson M.D. 05/22/2021 11:37 AM
[2021-05-22 12:42] LABS: Basophils # (auto) 0.11 K/uL (0-0.2); Basophils % (auto) 1.8 %; Eosinophils # (auto) 0.17 K/uL (0-0.5); Eosinophils % (auto) 2.8 %; Hematocrit (blood only) 41.3 % (42-52); Immature Granulocytes # (auto) 0.01 K/uL (0.00-0.02); Immature Granulocytes % (auto) 0.2 %; Lymphocytes # (auto) 0.99 K/uL (1.2-3.4); Mean Corpuscular Hemoglobin 30.1 pg (25-34); Mean Corpuscular Hgb Conc 31.5 g/dL (32-36); Mean Corpuscular Volume 95.6 fL (80-100); Mean Platelet Volume 10.7 fL (7.4-10.4); Monocytes # (auto) 0.66 K/uL (0.11-0.59); Monocytes % (auto) 10.7 %; Neutrophils # (auto) 4.24 K/uL (1.4-6.5); Neutrophils % (auto) 68.5 %; Platelet Count 186 K/uL (130-400); RDW Coefficient of Variation 14.4 % (11.5-14.5); RDW Standard Deviation 51.4 fL (36.4-46.3); Red Blood Count 4.32 M/uL (4.7-6.1); White Blood Count 6.18 K/uL (4.8-10.8)
[2021-05-22 12:52] LABS: Base Excess VBG 4.5 mEq/L; HCO3 VBG 32 mmol/L; PCO2 VBG 60 mmHg (38-50); PO2 VBG 22 mmHg; pH VBG 7.34 (7.36-7.41)
[2021-05-22 12:55] LABS: Oxygen Saturation VBG < 60.0 %
[2021-05-22 13:06] LABS: Troponin I < 0.03 ng/ml (0-0.04)
[2021-05-22 13:09] LABS: Alanine Aminotransferase 24 U/L (7-52); Albumin Globulin Ratio 1.7 (0.9-2); Alkaline Phosphatase 57 U/L (34-104); Anion Gap 6 (3-11); Aspartate Aminotransferase 19 U/L (13-39); BUN Creatinine Ratio 30.4 (10-20); Bilirubin,Total 0.4 mg/dl (0.2-1.0); Blood Urea Nitrogen 24 mg/dl (6-23); Calcium 9.1 mg/dl (8.5-10.1); Carbon Dioxide 30 mmol/L (21-32); Chloride 107 mmol/L (98-107); Creatinine Clr Calc Pharmacy 51.2 ml/min; Est GFR (African American) 92.9 ml/min; Est GFR (Non-African American) 80.2 ml/min; Globulin 2.3 gm/dl (2.5-4.0); Glucose 106 mg/dl (70-99(Fasting)); Potassium 4.4 mmol/L (3.5-5.1); Sodium 143 mmol/L (136-145); Total Protein 6.3 gm/dl (6.0-8.3)
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
[2021-05-22] MEDS ORDERED: DOXYCYCLINE HYCLATE 100 MG CAP PO STA (14:55)
[2021-05-22] MEDS ORDERED: ACETAMINOPHEN 325 MG TAB PO PRN (17:11)
[2021-05-22] MEDS ORDERED: ONDANSETRON INJ 2 MG/ML 2 ML VIAL IV PRN (17:11)
[2021-05-22] MEDS: ALBUT/IPRATROP 3MG/0.5MG NEB 3 ML VIAL NEB SCH ×2 (17:48→19:48)
[2021-05-22] MEDS: amLODIPine BESYLATE 5 MG TAB PO SCH (20:34)
[2021-05-22] MEDS: DOCUSATE SODIUM 100 MG CAP PO SCH (20:34)
[2021-05-22] MEDS: CALCIUM CARBONATE 500 MG CHEWABLE TAB PO SCH (20:34)
[2021-05-22] MEDS: HEPARIN SOD 5,000 UNIT/0.5 ML VIAL SQ SCH (20:35)
[2021-05-22] MEDS: TAMSULOSIN HCL 0.4 MG CAP PO SCH (20:35)
[2021-05-22] MEDS: PANTOprazole 40 MG TAB PO SCH (20:35)
[2021-05-22] MEDS: guaiFENesin 600 MG TABCR PO SCH (20:35)
[2021-05-22] MEDS: DOXYCYCLINE HYCLATE 100 MG CAP PO SCH (20:35)
[2021-05-22] MEDS: methylPREDNISolone 30 MG in SYRINGE 0 ML IV SCH (20:36)
[2021-05-22 21:24] LABS: Appearance Urine Clear (Clear); Bacteria Urine Automated 1+ (Negative); Bilirubin Urine Negative (Negative); Blood Urine Negative (Negative); Color Urine Yellow; Glucose Urine UA Negative (Negative); Ketones Urine 1+ (Negative); Leukocyte Esterase Urine Trace (Negative); Nitrite Urine Positive (Negative); Protein Urine Negative (Negative); Urobilinogen Urine Negative (Negative)
[2021-05-22 21:37] LABS: RBC Urine Automated 0-4 /hpf (0-4)
[2021-05-22] MEDS ORDERED: cefTRIAXone SODIUM 1,000 MG in DEXTROSE 5% 50 ML IV SCH (22:00)
--- NOTE | 2021-05-23 06:00 | Electrocardiogram Report ---
Test Reason : Blood Pressure : / mmHG Vent. Rate : 076 BPM Atrial Rate : 076 BPM P-R Int : 132 ms QRS Dur : 082 ms QT Int : 372 ms P-R-T Axes : 067 -68 082 degrees QTc Int : 418 ms Normal sinus rhythm Left axis deviation Nonspecific ST and T wave abnormality Abnormal ECG When compared with ECG of 11-FEB-2021 14:25, No significant change Confirmed by Adama Lanza ([id number]) on 05/23/2021 5:59:57 AM Referred By: REFERRED SELF Confirmed By:Adama Lanza
[2021-05-23] MEDS: DOXYCYCLINE HYCLATE 100 MG CAP PO SCH ×2 (06:18→18:23)
[2021-05-23 07:06] LABS: BUN Creatinine Ratio 33.7 (10-20); Calcium 9.2 mg/dl (8.5-10.1); Creatinine Clr Calc Pharmacy 45.2 ml/min; Est GFR (African American) 85.8 ml/min
[2021-05-23] MEDS: ALBUT/IPRATROP 3MG/0.5MG NEB 3 ML VIAL NEB SCH (07:31)
[2021-05-23] MEDS: FLUTICASONE/VILANTEROL 100/25MCG 14 PUFFS/INHALER INH SCH (07:56)
[2021-05-23] MEDS: CALCITRIOL 0.25 MCG CAPSULE PO SCH (07:56)
[2021-05-23] MEDS: DOCUSATE SODIUM 100 MG CAP PO SCH ×2 (07:56→20:14)
[2021-05-23] MEDS: CALCIUM CARBONATE 500 MG CHEWABLE TAB PO SCH ×2 (07:56→20:14)
[2021-05-23] MEDS: FINASTERIDE 5 MG TAB PO SCH (07:56)
[2021-05-23] MEDS: methylPREDNISolone 30 MG in SYRINGE 0 ML IV SCH ×2 (07:57→22:29)
[2021-05-23] MEDS: MULTIVITAMIN TAB PO SCH (07:57)
[2021-05-23] MEDS: HEPARIN SOD 5,000 UNIT/0.5 ML VIAL SQ SCH ×2 (07:57→20:15)
[2021-05-23] MEDS: guaiFENesin 600 MG TABCR PO SCH ×2 (07:57→20:14)
[2021-05-23] MEDS: PANTOprazole 40 MG TAB PO SCH ×2 (07:57→20:15)
[2021-05-23] MEDS ORDERED: ALBUT/IPRATROP 3MG/0.5MG NEB 3 ML VIAL NEB PRN (08:55)
--- NOTE | 2021-05-23 11:07 | Psychiatric Consultation ---
Date of Consultation May 23, 2021 Impression / Recommendations Impression 86 yo with a history of mild cognitive impairment admitted medically. Diagnostically consistent with adjustment disorder with depressed mood. Acute risk of self-harm is low given denial of active SI, reasons for living, and no history of prior attempts nor hospitalizations and denial of anhedonia and hopelessness and good social supports. They are not interested in nor do they meet criteria for inpatient psychiatric hospitalization at this time. However, he may benefit from medications, and therapy. He declines therapy but is willing to consider medication, psych liason discussed it with his grandson who was in support of this. Ford consented to trying mirtazapine to help with insomnia and his mood. Sodium is normal and no evidence of prolonged QTc. He does not have decision making capacity to leave AMA as he cannot tell me any benefits of staying in the hospital nor any risks should he leave before he was medically stable to do so ("I can't really tell you that"). (1) Adjustment disorder with depressed mood: -Does not have DMC to leave AMA -mirtazapine 7.5mg qhs for insomnia and depression; after 1 week could be incre ased to 15mg qhs and then further titrated to 30mg qhs if beneficial; in future as an outpatient if mirtazapine ineffective other options for depression would be SSRI likely would start with sertraline 25mg qd for 2 weeks and then if tolerated could increase to 50mg qd for depression. -psych liason discussed safety planning with patient's grandson who did not feel comfortable removing guns from the home but stated that lock has been changed so that Ford no longer has access to guns and confirmed that he has no access to ammunition either -safe to discharge from psychiatric perspective once medically stable Risk Factors Assessment Do You Have Access To A Gun?: Yes (guns in home, locked and no ammunition but has access) Substance Use Disorders: No Previous Attempt: No Hopelessness: No Protective Factors Assessment : Yes Stable Relationships: Yes Supportive Family: Yes Psych History Identifying Data 86 yo man with mild cognitive impairment admitted medically for worsening COPD and suspected UTI. Psychiatry was consulted for depression. Chief Complaint "I'd like to go home". History of Present Illness Ford is fully oriented to hospital name, city, month, year. Ford describes some depression in the context of his having to move into a intermediate facility recently after breaking her hip. This has been one of the longest times they have been apart since they got in 1955. Since that time he has been intermittently making statements of suicide to his granddaughter, with whom he lives. He minimizes these statements today stating "I just say that" and that "no I would never act on them". He states he has many reasons to live including "everything really". His granddaughter has also noticed changes in his cognition including early signs of dementia. Reportedly his appetite has been low and especially within the last week with weight loss though he denies this and is observed eating a large lunch during our interview. He reports difficulty with sleep and endorses some depressive symptoms (PHQ-9 score of 6 with score of 1 for q9). He denies any current SI but does endorse periods of passive SI as described above. He identifies difficulty with sleep as his biggest problem, otherwise stating he is ok and would like to return home. He declines offers for outpatient therapy stating "no I think I can do it on my own". Initially he's reluctant to consider medication but then states he is willing to try it if his granddaughter or grandson think it's a good idea since they help him manage his medication. Further collateral per his conversation with psych liason last night on 05/22/21 after admission: "Rounded on patient for initial consult. Patient resting in bed, engaged in conversation. Introduced self and explained reason for visit. He states "I don't know why I am here, anyone would be depressed being in here." He stated he doesn't know his reason for being in the hospital. States "I feel great for 86, I know I've said I would be better off , but I don't mean it." He reports feeling safe living with grandchildren. States "I have fun living there, and I have everything I need." He did express missing his , and couldn't recall what facility she was in. He stated his depression "comes, and goes, doesn't everybody's?" Scored a 6 on PHQ-9 scale. Reports that he has poor sleep, difficulty staying asleep. He reports appetite is "great." He expressed that he would like to do more, and is unable to do them being in the hospital. He does report access to weapons, stated he has a gun cabinet that locks. He did give permission to speak to his granddaughter Tena Gunn, ANUM was signed. He denies needing anything from our service at this time, he was encouraged to have staff reach out if needed." Past Psychiatric History Outpatient Services: none Previous Psych Admissions: n/a Do You Have Access To A Gun?: Yes (guns in home, locked and no ammunition but has access) History of Previous Suicide Attempt: No Past Medication Trials: none Allergies Allergy/AdvReac Type Severity Reaction Status Date / Time morphine AdvReac Severe Agitated Verified 02/11/21 15:31 Home Medications Medication Instructions Recorded Confirmed Type Saccharomyces boulardii 250 mg 250 mg PO UD 04/23/18 05/22/21 History capsule (Florastor) docusate sodium 100 mg capsule 200 mg PO BID 04/23/18 05/22/21 History ferrous sulfate 325 mg (65 mg 325 mg PO UD 04/23/18 05/22/21 History iron) tablet (iron) bfohjuja-zaj-pfgkg acid 0.4 1 tab PO DAILY 04/23/18 05/22/21 History mg-lycopene 300 mcg-lutein 250 mcg tablet (Centrum Silver) guaifenesin 600 mg tablet, 600 mg PO BID #60 tab 12/05/19 05/22/21 Rx extended release 12 hr fluticasone 250 mcg-salmeterol 50 1 inh INHALATION BID #60 ea 05/10/20 05/22/21 Rx mcg/dose blistr powdr for inhalation (Advair Diskus) calcium carbonate 400 mg calcium 400 mg PO BID tab 07/07/20 05/22/21 History (1,000 mg) chewable tablet (Tums Ultra) pantoprazole 40 mg tablet,delayed 40 mg PO BID #60 tab 01/06/21 05/22/21 Rx release amlodipine 10 mg tablet 5 mg PO PM #90 tab 02/16/21 05/22/21 Rx finasteride 5 mg tablet 5 mg PO DAILY #90 tab 03/09/21 05/22/21 Rx tamsulosin 0.4 mg capsule 0.4 mg PO HS #90 cap 03/14/21 05/22/21 Rx calcitriol 0.25 mcg capsule 0.25 mcg PO DAILY #30 cap 03/15/21 05/22/21 Rx Family History denies any Substance Abuse History denies Personal History Living Arrangements: Apartment (with granddaughter ) Employment Status: Retired Marital Status: Beliefs That Will Affect Care: None History of Legal Problems: denies Psychological Trauma History Comment: denies Patient History Medical History Colostomy complication COPD (chronic obstructive pulmonary disease) Hyperparathyroidism Hypertension Pneumonia Pneumoperitoneum s/p hemicolectomy and colostomy formation Sepsis Surgical History History of colon resection with colostomy formation Family History Denies family history of Ovarian cancer Prostate cancer Myocardial infarction Breast cancer Colorectal cancer Social History Smoking Status: Former smoker Tobacco Type: Cigarettes Age Started Using Tobacco: 19; Age Quit Using Tobacco: 23; packs per day: 0.5; Second Hand Exposure: No; Do You Dip or Chew Tobacco: No; Tobacco Cessation Education Requested by Patient: No Hx Alcohol Use: No Hx Substance Use: No Preferred Language: Sami Communication Ability: Effective Visual Impairment: No Limitations Hearing Ability: Normal [employer] Associate Required: No Beliefs That Will Affect Care: None marital status: Current Living Situation: Family Current Living Situation Comment: grandchildren; is in [place] [facility] current occupational status: retired 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 How many Children do You have: 2 Other Information That Helps Us Care for You: No Feels Safe at Home: Yes Safety Concerns: Feels Safe At This Time Childhood Exposure to Second-Hand Smoke: Yes Dental Care, Regularly: No Physical Activity Frequency: Does not Exercise Seatbelt Use: always Sunscreen Use: No Assistive Devices: Cane and Walker Physical Exam Psychiatric: Orientation: alert and oriented x 3 Apperance: appropriately dressed and appropriately groomed Eye Contact: good eye contact Motor Behavior: no abnormal motor movements Speech: normal rate/rhythm/volume of speech Affect: + constricted affect Mood: + depressed mood; no anxious mood Thought Process: linear/logical thought process Thought Content: reality based without delusions Suicidal Thoughts: denies suicidal thoughts (intermittent passive SI prior to hospitalization) Homicidal Thoughts: denies homicidal thoughts Hallucinations: no auditory hallucinations and no visual hallucinations Cognition: remote memory grossly intact, attention grossly intact and language grossly intact; + recent memory not intact Insight: + limited insight Judgement: + limited judgement Vital Signs (Past 24 Hours): Last Vital Signs Temp 37.2 C 05/23/21 08:15 Pulse 81 05/23/21 08:15 Resp 18 05/23/21 08:15 BP 103/65 05/23/21 08:15 Pulse Ox 95 05/23/21 08:15 Review of Systems All systems reviewed & are unremarkable except as noted in HPI & below Results & Data (PSY) Laboratory Results Reviewed CBC, CMP; Na+ nml, abml UA Diagnostic Findings QTc wnl on EKG Medications Administered Amlodipine Besylate (Amlodipine Besylate 5 Mg Tab) 5 mg PO PM ALTAGRACIA Stop: 06/21/21 20:59 Last Admin: 05/22/21 20:34 Dose: 5 mg Documented by: [id number] Calcitriol (Calcitriol 0.25 Mcg Capsule) 0.25 mcg PO DAILY ALTAGRACIA Stop: 06/22/21 08:59 Last Admin: 05/23/21 07:56 Dose: 0.25 mcg Documented by: [id number] Calcium Carbonate (Calcium Carbonate 500 Mg Chewable Tab) 500 mg PO BID ALTAGRACIA Stop: 06/21/21 20:59 Last Admin: 05/23/21 07:56 Dose: 500 mg Documented by: [id number] Admin: 05/22/21 20:34 Dose: 500 mg Documented by: [id number] Docusate Sodium (Docusate Sodium 100 Mg Cap) 200 mg PO BID ALTAGRACIA Stop: 06/21/21 20:59 Last Admin: 05/23/21 07:56 Dose: 200 mg Documented by: [id number] Admin: 05/22/21 20:34 Dose: 200 mg Documented by: [id number] Doxycycline Hyclate (Doxycycline Hyclate 100 Mg Cap) 100 mg PO BID@0700,1900 ALTAGRACIA Stop: 05/29/21 20:59 Last Admin: 05/23/21 06:18 Dose: 100 mg Documented by: [id number] Admin: 05/22/21 20:35 Dose: 100 mg Documented by: [id number] Finasteride (Finasteride 5 Mg Tab) 5 mg PO DAILY ALTAGRACIA Stop: 06/22/21 08:59 Last Admin: 05/23/21 07:56 Dose: 5 mg Documented by: [id number] Fluticasone/Vilanterol (Fluticasone/Vilanterol 100/25mcg 14 Puffs/Inhaler) 1 puffs INH DAILY COUNTS INCLUDE 234 BEDS AT THE [facility]; Protocol Stop: 06/22/21 08:59 Last Admin: 05/23/21 07:56 Dose: 1 puffs Documented by: [id number] Guaifenesin (Guaifenesin 600 Mg Tabcr) 600 mg PO BID ALTAGRACIA Stop: 06/21/21 20:59 Last Admin: 05/23/21 07:57 Dose: 600 mg Documented by: [id number] Admin: 05/22/21 20:35 Dose: 600 mg Documented by: [id number] Heparin Sodium (Porcine) (Heparin Sod 5,000 Unit/0.5 Ml Vial) 5,000 units SQ Q12 ALTAGRACIA Stop: 06/21/21 20:59 Last Admin: 05/23/21 07:57 Dose: 5,000 units Documented by: [id number] Admin: 05/22/21 20:35 Dose: 5,000 units Documented by: [id number] Methylprednisolone 30 mg/ (Syringe) 0.48 mls @ 1.5 mls/min IV BID COUNTS INCLUDE 234 BEDS AT THE [facility] Stop: 06/21/21 20:59 Last Admin: 05/23/21 07:57 Dose: 1.5 mls/min Documented by: [id number] Admin: 05/22/21 20:36 Dose: 1.5 mls/min Documented by: [id number] Ceftriaxone Sodium 1,000 mg/ (Dextrose) 50 mls @ 100 mls/hr IV Q24H COUNTS INCLUDE 234 BEDS AT THE [facility]; Protocol Stop: 05/27/21 21:59 Last Infusion: 05/22/21 22:47 Dose: 0 mls/hr Documented by: [id number] Admin: 05/22/21 22:16 Dose: 100 mls/hr Documented by: [id number] Multivitamins (Multivitamin Tab) 1 tab PO DAILY COUNTS INCLUDE 234 BEDS AT THE [facility] Stop: 06/22/21 08:59 Last Admin: 05/23/21 07:57 Dose: 1 tab Documented by: [id number] Pantoprazole Sodium (Pantoprazole 40 Mg Tab) 40 mg PO BID COUNTS INCLUDE 234 BEDS AT THE [facility] Stop: 06/21/21 20:59 Last Admin: 05/23/21 07:57 Dose: 40 mg Documented by: [id number] Admin: 05/22/21 20:35 Dose: 40 mg Documented by: [id number] Tamsulosin HCl (Tamsulosin Hcl 0.4 Mg Cap) 0.4 mg PO HS ALTAGRACIA Stop: 06/21/21 20:59 Last Admin: 05/22/21 20:35 Dose: 0.4 mg Documented by: [id number] Coding Level of Care Code 70779 Inpt Consult Level 3 Diagnoses Adjustment disorder with depressed mood F43.21
--- NOTE | 2021-05-23 16:07 | Medical Student Progress Note ---
Date of Service May 23, 2021 Assessment & Plan (1) COPD exacerbation: Plan: 86 yo male with hx of hypoxic respiratory failure secondary to COPD (at home: 2.5-3.5 L nc O; at times noncompliant w/ O2 + inhalers), dementia, hypertension presents due to granddaughter's concern about weakness, worsening dyspnea, cough, loss of appetite, and weight loss. (1) COPD exacerbation - resolving - sat at 92 on 2L nc, improved from 4L nc in ED - Chest X Ray (05/22): moderate COPD, no evidence of acute cardiopulm disease. - negative COVID test - continue COPD regimen (Solumedrol, doxy, nebs, mucinex, home inhalers) (2) Asymptomatic bacteruria - initial concern for contaminated/dirty UA in ED - no sx - Urine culture: pin-point growth; reincubating - discontinue abx at this time (3) Depression w/ Suicidal Ideation - PHQ-9: 6 - guns in the home; but pt has no access to them (lock change) or ammunition - Reported by grand daughter; Pt denies sx - associated with moving to [facility] facility following hip fracture in January - Psych consult: Adjustment disorder with depressed mood. DMC to leave AMA. [facility]MC criteria for inp hospitalization. Safe to discharge once stabilized - Start Mirtazapine 7.5 qhs; psych consult contains titration regimen - Consider Sertraline 25mg qd if Mirtazapine is ineffective (4) Failure to Thrive - grandson reports instances where Ford was incontinent, expressed being unable to move from one place to another, and had decreased appetite leading to 8kg weight loss since Fall 2020. - PT/OT consult ordered (5) Hypertension - continue amlodipine + flomax (6) GERD - continue PPI (7) Dementia - reported by grandson; approx 4 years - TSH, B12 WNL; B1 still pending (8) BPH - continue finasteride + flomax Diet: Reg Code: Full DVT: Heparin Admission and Anticipated Discharge Date Admission Date: May 22, 2021 Supervising Attestation Medical Student Supervision Note: I was personally present during medical student patient encounter and independently interviewed and examined the patient and verified the king history and physical, reviewed labs and image studies, discussed the case with Amina Vu and agree with the findings and care plan. COPD exacerbation - improving. continue steroids, doxy, nebs. Chronic oxygen need - now at baseline. Depression - per psych anticipate d/c home in am. Subjective Pt was seen at bedsite this morning. He appeared in good spirits and was conversational. He stated that he was feeling great and would like to go home. When asked about a cough, he replied "who doesn't cough these days?". No cough were appreciated during our conversation. Otherwise, he denies SOB, or difference from baseline. He did not recognized any recent weight loss but when it was pointed out, he stated he started eating less because he used to eat too much. With probing, he also endorsed feeling sad because he misses his children but denied having suicidal ideations/depressed mood prior to admission. When asked about his comments to his granddaughter about wanting to , he stated saying things like that sometimes "because it's fun". He is very adamant that he can do a lot of things by himself at home and would like to be discharged. We also verified that his granddaughter is responsible for keeping track of his medication when at home. We updated grandsami Goel over the phone. Amando expressed concerns about Pt being unable to care for himself at home. Both grandson and his work + have two kids, and are only able to check on pt a few times a day. They are uncomfortable with pt returning home if he continues to be incontinent + express SI, and asked about possibility of [facility] facility (although Pt refused even when given the option to be in same facility as his ). Review of Systems Constitutional: Denies feeling any different from baseline Respiratory: no cough, no dyspnea and no wheezing Cardiovascular: no chest pain, no dyspnea at rest and no lightheadedness Genitourinary: no dysuria Integumentary: + non-healing lesions and + skin swelling; no rash and no erythema Neurologic: no behavioral changes Psychiatric: no behavioral changes, no depression, no change in appetite and no suicidal ideation Physical Exam Physical Exam: Appears well, in no acute distress. Eyes: PERRL, anicteric sclerae Respiratory: Mild expiratory wheeze, decreased breath sounds. Cardiovascular: Rate/Rhythm: regular rate and regular rhythm Heart Sounds: normal S1 and normal S2; no gallop, no murmur and no cardiac rub Extremities: normal capillary refill; no calf tenderness and no edema Gastrointestinal (Abdomen): Large midline hernia. Ostomy with bag on L abd omen. Normal bowel sound. Nontender, soft. Skin: Warm and dry. Neurologic: Fluent and clear speech Psychiatric: Alert and oriented x3, normal mood and affect, poor insight/judgment Results & Data ([facility]) Vital Signs (Past 12 Hours) Vital Signs Temp Pulse Pulse Resp BP Pulse Ox 05/23/21 14:19 83 05/23/21 11:38 36.6 C 74 16 137/70 92 05/23/21 08:15 37.2 C 81 18 103/65 95 05/23/21 07:42 77 05/23/21 07:33 77 20 93 05/23/21 03:51 36.7 C 72 18 131/68 96 Laboratory Results 05/23/21 05/23/21 05/23/21 Range/Units 06:08 06:08 06:08 Sodium (136-145) mmol/L Potassium (3.5-5.1) mmol/L Chloride (98-107) mmol/L Carbon Dioxide (21-32) mmol/L Anion Gap (3-11) BUN (6-23) mg/dl Creatinine (0.6-1.4) mg/dl Est Cr Clr Drug Dosing ml/min Est GFR ( Amer) ml/min Est GFR (Non-Af Amer) ml/min BUN/Creatinine Ratio (10-20) Glucose (70-99(Fasting)) mg/dl Calcium (8.5-10.1) mg/dl Whole Bld Vitamin B1 Pending Vitamin B12 660 (211-911) pg/ml TSH 1.866 (0.300-4.500) uIu/ml Urine Color Urine Appearance (Clear) Urine pH (4.5-7.5) Ur Specific [place] (1.000-1.030) Urine Protein (Negative) Urine Glucose (UA) (Negative) Urine Ketones (Negative) Urine Blood (Negative) Urine Nitrite (Negative) Urine Bilirubin (Negative) Urine Urobilinogen (Negative) Ur Leukocyte Esterase (Negative) Urine WBC (Auto) (0-5) /hpf Urine RBC (Auto) (0-4) /hpf U Hyaline Cast (Auto) (0-5) /lpf U Epithel Cells (Auto) (0-5) /lpf Urine Bacteria (Auto) (Negative) 05/23/21 05/22/21 Range/Units 06:08 20:10 Sodium 142 (136-145) mmol/L Potassium 5.0 (3.5-5.1) mmol/L Chloride 106 (98-107) mmol/L Carbon Dioxide 30 (21-32) mmol/L Anion Gap 6 (3-11) BUN 31 H (6-23) mg/dl Creatinine 0.92 (0.6-1.4) mg/dl Est Cr Clr Drug Dosing 45.2 ml/min Est GFR ( Amer) 85.8 ml/min Est GFR (Non-Af Amer) 74.0 ml/min BUN/Creatinine Ratio 33.7 H (10-20) Glucose 109 H (70-99(Fasting)) mg/dl Calcium 9.2 (8.5-10.1) mg/dl Whole Bld Vitamin B1 Vitamin B12 (211-911) pg/ml TSH (0.300-4.500) uIu/ml Urine Color Yellow Urine Appearance Clear (Clear) Urine pH 6.0 (4.5-7.5) Ur Specific [place] 1.020 (1.000-1.030) Urine Protein Negative (Negative) Urine Glucose (UA) Negative (Negative) Urine Ketones 1+ H (Negative) Urine Blood Negative (Negative) Urine Nitrite Positive A (Negative) Urine Bilirubin Negative (Negative) Urine Urobilinogen Negative (Negative) Ur Leukocyte Esterase Trace H (Negative) Urine WBC (Auto) 10-30 H (0-5) /hpf Urine RBC (Auto) 0-4 (0-4) /hpf U Hyaline Cast (Auto) 1-5 (0-5) /lpf U Epithel Cells (Auto) 5-10 H (0-5) /lpf Urine Bacteria (Auto) 1+ H (Negative)
[2021-05-23] MEDS: amLODIPine BESYLATE 5 MG TAB PO SCH (20:14)
[2021-05-23] MEDS: MIRTAZAPINE TAB 15 MG TAB PO SCH (20:15)
[2021-05-23] MEDS: TAMSULOSIN HCL 0.4 MG CAP PO SCH (20:15)
[2021-05-24] MEDS: DOXYCYCLINE HYCLATE 100 MG CAP PO SCH ×2 (05:49→18:36)
[2021-05-24 07:36] LABS: BUN Creatinine Ratio 37.3 (10-20); Calcium 9.3 mg/dl (8.5-10.1); Creatinine Clr Calc Pharmacy 50.5 ml/min; Est GFR (African American) 91.1 ml/min; Est GFR (Non-African American) 78.6 ml/min
[2021-05-24] MEDS: methylPREDNISolone 30 MG in SYRINGE 0 ML IV SCH (08:21)
[2021-05-24] MEDS: PANTOprazole 40 MG TAB PO SCH ×2 (08:22→20:25)
[2021-05-24] MEDS: MULTIVITAMIN TAB PO SCH (08:22)
[2021-05-24] MEDS: DOCUSATE SODIUM 100 MG CAP PO SCH ×2 (08:22→20:24)
[2021-05-24] MEDS: CALCITRIOL 0.25 MCG CAPSULE PO SCH (08:22)
[2021-05-24] MEDS: guaiFENesin 600 MG TABCR PO SCH ×2 (08:22→20:26)
[2021-05-24] MEDS: FINASTERIDE 5 MG TAB PO SCH (08:22)
[2021-05-24] MEDS: CALCIUM CARBONATE 500 MG CHEWABLE TAB PO SCH ×2 (08:23→20:26)
[2021-05-24] MEDS: HEPARIN SOD 5,000 UNIT/0.5 ML VIAL SQ SCH ×2 (08:24→20:24)
[2021-05-24] MEDS: FLUTICASONE/VILANTEROL 100/25MCG 14 PUFFS/INHALER INH SCH (08:24)
--- NOTE | 2021-05-24 08:52 | Medical Student Progress Note ---
Date of Service May 24, 2021 Assessment & Plan (1) Failure to thrive in adult: Plan: 86 yo male with hx of hypoxic respiratory failure secondary to COPD (at home: 2.5-3.5 L nc O; at times noncompliant w/ O2 + inhalers), dementia, hypertension presents due to granddaughter's concern about weakness, worsening dyspnea, cough, loss of appetite, and weight loss. Overall improving. Currently assessing ability to return home w/ family support vs acute rehab vs SNF. (1) Failure to Thrive - grandson reports instances where Ford was incontinent, expressed being unable to move from one place to another, and had decreased appetite leading to 8kg weight loss since Fall 2020. - discussed possibility of moving to [facility] where pt's is currently residing, and pt is amenable to this idea; Building Performance Consultant following - OT recommends inpatient rehab until meets OT goals (anticipate OT 2X/wk for 2+ weeks). May then be able to return home w/ family support. - PT recommends inpatient rehab until meets PT goals (anticipate PT 3-5 sessions). May then be able to return home w/ family support. - continue PT/OT (2) COPD exacerbation - resolving - back to baseline on Room Air-2L nc; improved from 4L nc in ED - Chest X Ray (05/22): moderate COPD, no evidence of acute cardiopulm disease. - negative COVID test - day 3 doxy - continue nebs, mucinex, home inhalers - Transition steroids from IV Solumedrol to 40mg Prednisone daily (3) Depression w/ Suicidal Ideation - Reported by grand daughter; Pt denies sx - associated with [facility] in January - PHQ-9: 6 - guns in the home; but pt has no access to them (lock change) or ammunition - Psych consult: Adjustment disorder with depressed mood. DMC to leave AMA. DMC criteria for inp hospitalization. Safe to discharge once stabilized - Continue Mirtazapine 7.5 qhs; tolerating it well without side effects. (5) Hypertension - 160/69 this AM, asymptomatic - continue amlodipine + flomax (6) GERD - continue PPI (7) Dementia - reported by grandson; approx 4 years - TSH, B12 WNL; B1 still pending (8) BPH - continue finasteride + flomax Diet: Reg Code: Full DVT: Heparin Admission and Anticipated Discharge Date Admission Date: May 22, 2021 Supervising Attestation Medical Student Supervision Note: I was personally present during medical student patient encounter and independently interviewed and examined the patient and verified the king history and physical, reviewed labs and image studies, discussed the case with Amina Boswell and agree with the findings and care plan. COPD exac - improving with current regimen Depression - started on mirtazepine PT/OT - rehab placement Subjective Patient was seen at bedside today while he was eating breakfast. He endorses good appetite and good mood. He denies cough, SOB, dizziness, fatigue, and chest pain/palpitation. He also denies depression and SI. We discussed the option of moving to [facility] nursing facility where his has been residing since January, and he was amenable to the idea. He expressed wanting to bring his guns there, but understand that nursing facilities are safe places and bringing his guns would not be necessary. He also understands that he can continue to discuss this option with his grandchildren, who can help him figure out the essentials he could bring. We confirmed that he is a former smoked (stopped in 1954). Otherwise, he is doing well, and is aware that PT/OT will be coming by to assess his ability to care for himself once discharged. Review of Systems Constitutional: no fever, no chills, no sweats and no fatigue Respiratory: no cough and no dyspnea Cardiovascular: no chest pain, no palpitations, no lightheadedness and no edema Psychiatric: no depression, no change in appetite and no suicidal ideation Physical Exam Constitutional: WD/WN, vitals as above Eyes: PERRL, anicteric sclerae Respiratory: Mild expiratory wheezes, decreased lung sounds. Normal respiratory effort. Cardiovascular: RRR, no murmur, no edema Extremities: no calf tenderness Gastrointestinal (Abdomen): Large, reducible, midline hernia. ostomy bag on LLQ. Non tender, soft. Normoactive sounds. Skin: No rashes, warm, dry. Psychiatric: A+Ox3, euthymic affect Eye Contact: good eye contact Speech: normal rate/rhythm/volume of speech Thought Process: linear/logical thought process Insight: + poor insight Judgement: + poor judgement Results & Data ([facility]) Vital Signs (Past 12 Hours) Vital Signs Temp Pulse Pulse Resp BP BP Pulse Ox 05/24/21 07:25 36.8 C 69 18 162/84 H 93 05/24/21 07:22 75 05/24/21 03:51 36.5 C 72 18 135/64 93 05/24/21 00:51 70 05/24/21 00:19 36.9 C 68 18 172/85 H 94 Laboratory Results 05/24/21 Range/Units 06:47 Sodium 137 (136-145) mmol/L Potassium 5.0 (3.5-5.1) mmol/L Chloride 102 (98-107) mmol/L Carbon Dioxide 30 (21-32) mmol/L Anion Gap 5 (3-11) BUN 31 H (6-23) mg/dl Creatinine 0.83 (0.6-1.4) mg/dl Est Cr Clr Drug Dosing 50.5 ml/min Est GFR ( Amer) 91.1 ml/min Est GFR (Non-Af Amer) 78.6 ml/min BUN/Creatinine Ratio 37.3 H (10-20) Glucose 109 H (70-99(Fasting)) mg/dl Calcium 9.3 (8.5-10.1) mg/dl
--- NOTE | 2021-05-24 14:57 | Psychiatric Progress Note ---
Date of Service May 24, 2021 Impression / Recommendations Impression 86 yo with a history of mild cognitive impairment admitted medically. Diagnostically consistent with adjustment disorder with depressed mood. Acute risk of self-harm is low given denial of active SI, reasons for living, and no history of prior attempts nor hospitalizations and denial of anhedonia and hopelessness and good social supports. They are not interested in nor do they meet criteria for inpatient psychiatric hospitalization at this time. However, he may benefit from medications, and therapy. He declines therapy but is willing to consider medication, psych liason discussed it with his grandson who was in support of this. Ford consented to trying mirtazapine to help with insomnia and his mood. Sodium is normal and no evidence of prolonged QTc. He does not have decision making capacity to leave AMA as he cannot tell me any benefits of staying in the hospital nor any risks should he leave before he was medically stable to do so ("I can't really tell you that"). 05/24/21: Tolerating mirtazapine well without side effects. Plan: continue with option for dose titration in 1 week. (1) Adjustment disorder with depressed mood: -Does not have DMC to leave AMA -mirtazapine 7.5mg qhs for insomnia and depression; after 1 week could be increased to 15mg qhs and then further titrated to 30mg qhs if beneficial; in future as an outpatient if mirtazapine ineffective other options for depression would be SSRI likely would start with sertraline 25mg qd for 2 weeks and then if tolerated could increase to 50mg qd for depression. -psych liason discussed safety planning with patient's grandson who did not feel comfortable removing guns from the home but stated that lock has been changed so that Ford no longer has access to guns and confirmed that he has no access to ammunition either -safe to discharge from psychiatric perspective once medically stable Risk Factors Assessment Do You Have Access To A Gun?: Yes (guns in home, locked and no ammunition but has access) Substance Use Disorders: No Previous Attempt: No Hopelessness: No Protective Factors Assessment : Yes Stable Relationships: Yes Supportive Family: Yes Interval History Identifying Information 86 yo man with mild cognitive impairment admitted medically for worsening COPD and suspected UTI. Psychiatry was consulted for depression. Chief Complaint "I'm fine". Review of Systems Notes Reports stable sleep and appetite (enjoyed his breakfast). Denies any physical symptoms. Subjective Subjective Patient was seen & assessed and interval progress reviewed. Ford states he had no trouble sleeping last night "I never do" and denies any side effects from the mirtazapine. States he's willing to continue taking it. Remains eager to leave the hospital and see his . Cannot recall if he has visited her or talked to her on the phone since she went to her SNF stating "I think so but I can't remember". Physical Exam Psychiatric A+Ox3, euthymic affect Orientation: alert and oriented x 3 Apperance: appropriately dressed and appropriately groomed Eye Contact: good eye contact Motor Behavior: no abnormal motor movements Speech: normal rate/rhythm/volume of speech Affect: euthymic affect Mood: no depressed mood and no anxious mood Thought Process: linear/logical thought process Thought Content: reality based without delusions Suicidal Thoughts: denies suicidal thoughts (intermittent passive SI prior to hospitalization) Homicidal Thoughts: denies homicidal thoughts Hallucinations: no auditory hallucinations and no visual hallucinations Cognition: remote memory grossly intact, attention grossly intact and language grossly intact; + recent memory not intact Insight: + limited insight Judgement: + limited judgement Vital Signs (Past 24 Hours) Last Vital Signs Temp 36.9 C 05/24/21 11:01 Pulse 70 05/24/21 11:01 Resp 20 05/24/21 11:01 BP 160/69 H 05/24/21 11:01 Pulse Ox 97 05/24/21 11:01 Results & Data ([facility]) Laboratory Results Laboratory Results - last 24 hr 05/24/21 06:47 Sodium 137 Potassium 5.0 Chloride 102 Carbon Dioxide 30 Anion Gap 5 BUN 31 H Creatinine 0.83 Est Cr Clr Drug Dosing 50.5 Est GFR ( Amer) 91.1 Est GFR (Non-Af Amer) 78.6 BUN/Creatinine Ratio 37.3 H Glucose 109 H Calcium 9.3 Current Inpatient Medications Current Inpatient Medications: Current Inpatient Medications Acetaminophen (Acetaminophen 325 Mg Tab) 650 mg PO Q4H PRN PRN Reason: Pain or Fever Stop: 06/21/21 17:10 Albuterol (Albut/Ipratrop 3mg/0.5mg Neb 3 Ml Vial) 3 ml NEB Q2H PRN; Protocol PRN Reason: SOB/WHEEZING Stop: 06/22/21 08:53 Amlodipine Besylate (Amlodipine Besylate 5 Mg Tab) 5 mg PO PM ALTAGRACIA Stop: 06/21/21 20:59 Last Admin: 05/23/21 20:14 Dose: 5 mg Documented by: Calcitriol (Calcitriol 0.25 Mcg Capsule) 0.25 mcg PO DAILY ALTAGRACIA Stop: 06/22/21 08:59 Last Admin: 05/24/21 08:22 Dose: 0.25 mcg Documented by: Calcium Carbonate (Calcium Carbonate 500 Mg Chewable Tab) 500 mg PO BID ALTAGRACIA Stop: 06/21/21 20:59 Last Admin: 05/24/21 08:23 Dose: 500 mg Documented by: Docusate Sodium (Docusate Sodium 100 Mg Cap) 200 mg PO BID ALTAGRACIA Stop: 06/21/21 20:59 Last Admin: 05/24/21 08:22 Dose: 200 mg Documented by: Doxycycline Hyclate (Doxycycline Hyclate 100 Mg Cap) 100 mg PO BID@0700,1900 ALTAGRACIA Stop: 05/29/21 20:59 Last Admin: 05/24/21 05:49 Dose: 100 mg Documented by: Finasteride (Finasteride 5 Mg Tab) 5 mg PO DAILY ALTAGRACIA Stop: 06/22/21 08:59 Last Admin: 05/24/21 08:22 Dose: 5 mg Documented by: Fluticasone/Vilanterol (Fluticasone/Vilanterol 100/25mcg 14 Puffs/Inhaler) 1 puffs INH DAILY [facility]; Protocol Stop: 06/22/21 08:59 Last Admin: 05/24/21 08:24 Dose: 1 puffs Documented by: Guaifenesin (Guaifenesin 600 Mg Tabcr) 600 mg PO BID ALTAGRACIA Stop: 06/21/21 20:59 Last Admin: 05/24/21 08:22 Dose: 600 mg Documented by: Heparin Sodium (Porcine) (Heparin Sod 5,000 Unit/0.5 Ml Vial) 5,000 units SQ Q12 ALTAGRACIA Stop: 06/21/21 20:59 Last Admin: 05/24/21 08:24 Dose: 5,000 units Documented by: Mirtazapine (Mirtazapine Tab 15 Mg Tab) 7.5 mg PO HS ALTAGRACIA Stop: 06/22/21 20:59 Last Admin: 05/23/21 20:15 Dose: 7.5 mg Documented by: Multivitamins (Multivitamin Tab) 1 tab PO DAILY ALTAGRACIA Stop: 06/22/21 08:59 Last Admin: 05/24/21 08:22 Dose: 1 tab Documented by: Ondansetron HCl (Ondansetron Inj 2 Mg/Ml 2 Ml Vial) 4 mg IV Q6H PRN PRN Reason: Nausea Stop: 06/21/21 17:10 Pantoprazole Sodium (Pantoprazole 40 Mg Tab) 40 mg PO BID ALTAGRACIA Stop: 06/21/21 20:59 Last Admin: 05/24/21 08:22 Dose: 40 mg Documented by: Prednisone (Prednisone 20 Mg Tab) 40 mg PO DAILY ALTAGRACIA Stop: 05/27/21 08:59 Tamsulosin HCl (Tamsulosin Hcl 0.4 Mg Cap) 0.4 mg PO HS ALTAGRACIA Stop: 06/21/21 20:59 Last Admin: 05/23/21 20:15 Dose: 0.4 mg Documented by:
[2021-05-24] MEDS: TAMSULOSIN HCL 0.4 MG CAP PO SCH (20:26)
[2021-05-24] MEDS: amLODIPine BESYLATE 5 MG TAB PO SCH (20:27)
[2021-05-24] MEDS: MIRTAZAPINE TAB 15 MG TAB PO SCH (20:27)
[2021-05-25] MEDS: HEPARIN SOD 5,000 UNIT/0.5 ML VIAL SQ SCH ×2 (07:28→19:39)
[2021-05-25] MEDS: DOCUSATE SODIUM 100 MG CAP PO SCH ×2 (07:28→19:40)
[2021-05-25] MEDS: guaiFENesin 600 MG TABCR PO SCH ×2 (07:29→19:37)
[2021-05-25] MEDS: CALCITRIOL 0.25 MCG CAPSULE PO SCH (07:29)
[2021-05-25] MEDS: predniSONE 20 MG TAB PO SCH (07:29)
[2021-05-25] MEDS: FINASTERIDE 5 MG TAB PO SCH (07:29)
[2021-05-25] MEDS: CALCIUM CARBONATE 500 MG CHEWABLE TAB PO SCH ×2 (07:29→19:39)
[2021-05-25] MEDS: DOXYCYCLINE HYCLATE 100 MG CAP PO SCH ×2 (07:29→18:41)
[2021-05-25] MEDS: MULTIVITAMIN TAB PO SCH (07:29)
[2021-05-25] MEDS: FLUTICASONE/VILANTEROL 100/25MCG 14 PUFFS/INHALER INH SCH (07:30)
[2021-05-25] MEDS: PANTOprazole 40 MG TAB PO SCH ×2 (07:30→19:36)
--- NOTE | 2021-05-25 08:53 | Medical Student Progress Note ---
Date of Service May 25, 2021 Assessment & Plan (1) Failure to thrive in adult: Plan: 86 yo male with hx of hypoxic respiratory failure secondary to COPD (at home: 2.5-3.5 L nc O; at times noncompliant w/ O2 + inhalers), dementia, hypertension presents due to granddaughter's concern about weakness, worsening dyspnea, cough, loss of appetite, and weight loss. Overall improving. Currently assessing ability to return home w/ family support vs acute rehab vs SNF. (1) Failure to Thrive - felicity reports instances where Ford was incontinent, expressed being unable to move from one place to another, and had decreased appetite leading to 8kg weight loss since Fall 2020. - pt appetite/po intake has been good throughout his stay - Options of discharge to [facility] vs grandson's; Arcade Games Mechanic is following - OT recommends inpatient rehab until meets OT goals (anticipate OT 2X/wk for 2+ weeks). May then be able to return home w/ family support. - PT recommends inpatient rehab until meets PT goals (anticipate PT 3-5 sessions). May then be able to return home w/ family support. - continue PT/OT (2) COPD exacerbation - resolving - back to baseline on Room Air-2L nc; improved from 4L nc in ED - Chest X Ray (05/22): moderate COPD, no evidence of acute cardiopulm disease. - negative COVID test - day 4/5 Doxycycline (100 mg PO BID) - continue Prednisone (day 4/5, 40mg PO daily), Duoneb (3 mL Q2 PRN), Mucinex (600 mg PO BID), and home inhalers (Breo Ellipta) (3) Depression w/ Suicidal Ideation - Reported by grand daughter; Pt denies sx - associated with moving to retirement facility following hip fracture in January - PHQ-9: 6 - guns in the home; but pt has no access to them (grandson changed locks) or ammunition - Psych consult: Adjustment disorder with depressed mood. DMC to leave AMA. DMC criteria for inp hospitalization. Safe to discharge once stabilized - Continue Mirtazapine 7.5 qhs; tolerating it well without side effects. (4) Hypertension - 133/71 - continue Amlodipine + Flomax (5) GERD - continue PPI (6) Dementia - reported by grandson; approx 4 years - TSH, B12 WNL; B1 still pending (7) BPH - continue Finasteride + Flomax Diet: Reg Code: Full DVT: Heparin Admission and Anticipated Discharge Date Admission Date: May 24, 2021 Supervising Attestation Medical Student Supervision Note: I was personally present during medical student patient encounter and independently interviewed and examined the patient and verified the king history and physical, reviewed labs and image studies, discussed the case with Amina Boswell and agree with the findings and care plan. Awaiting office of aging clearance for discharge planning - rehab vs home with home health Subjective Patient seen at beside, awake and alert. He feels great and would like to go home. When asked about his PT/OT evaluation, he admitted that he did not remember much because his memory is getting worse. We went over PT/OT goals, and although pt does not agree with their assessment, he understands that working with PT/OT is necessary for him to safely return home. We also discussed [facility] vs. returning home to [facility] again, and at this point, pt would prefer to go to [facility]. He endorses feeling a little sad today, but has no SI. He denies cough, dyspnea, chest pain, palpitation, and dizziness. Review of Systems Respiratory: no cough and no dyspnea Cardiovascular: no chest pain, no palpitations, no lightheadedness and no syncope Psychiatric: no change in appetite and no suicidal ideation Feeling a little sad Physical Exam Respiratory: normal respiratory effort mild expiratory wheezing, decreased breath sounds, no cyanosis. Cardiovascular: RRR, no murmur, no edema Vessels: dorsalis pedis pulses present Gastrointestinal (Abdomen): Large, reducible midline hernia. L ostomy bag. Nontender, soft, normoactive sounds. Psychiatric: A+Ox3, euthymic affect Results & Data ([facility]) Vital Signs (Past 12 Hours) Vital Signs Temp Pulse Pulse Resp BP BP Pulse Ox 05/25/21 07:09 36.5 C 62 18 133/71 100 05/25/21 04:22 36.7 C 63 20 142/68 H 98 05/24/21 23:31 65 05/24/21 23:00 36.8 C 68 20 165/81 H 98 Laboratory Results 05/24/21 Range/Units 20:24 POC Glucose 108 H (70-99) mg/dl
[2021-05-25] MEDS: amLODIPine BESYLATE 5 MG TAB PO SCH (19:36)
[2021-05-25] MEDS: TAMSULOSIN HCL 0.4 MG CAP PO SCH (19:37)
[2021-05-25] MEDS: MIRTAZAPINE TAB 15 MG TAB PO SCH (19:39)
[2021-05-26] MEDS: DOXYCYCLINE HYCLATE 100 MG CAP PO SCH ×2 (05:43→18:06)
[2021-05-26] MEDS: CALCITRIOL 0.25 MCG CAPSULE PO SCH (10:00)
[2021-05-26] MEDS: CALCIUM CARBONATE 500 MG CHEWABLE TAB PO SCH ×2 (10:02→20:10)
[2021-05-26] MEDS: DOCUSATE SODIUM 100 MG CAP PO SCH ×2 (10:04→20:10)
[2021-05-26] MEDS: FINASTERIDE 5 MG TAB PO SCH (10:05)
[2021-05-26] MEDS: FLUTICASONE/VILANTEROL 100/25MCG 14 PUFFS/INHALER INH SCH (10:07)
[2021-05-26] MEDS: HEPARIN SOD 5,000 UNIT/0.5 ML VIAL SQ SCH ×2 (10:10→20:11)
[2021-05-26] MEDS: guaiFENesin 600 MG TABCR PO SCH ×2 (10:10→20:10)
[2021-05-26] MEDS: MULTIVITAMIN TAB PO SCH (10:12)
[2021-05-26] MEDS: PANTOprazole 40 MG TAB PO SCH ×2 (10:14→20:05)
[2021-05-26] MEDS: predniSONE 20 MG TAB PO SCH (10:14)
--- NOTE | 2021-05-26 20:00 | Hospitalist Progress Note ---
Date of Service May 26, 2021 Assessment & Plan (1) Failure to thrive in adult: Plan: 86 yo male with hx of hypoxic respiratory failure secondary to COPD (at home: 2.5-3.5 L nc O; at times noncompliant w/ O2 + inhalers), dementia, hypertension presents due to granddaughter's concern about weakness, worsening dyspnea, cough, loss of appetite, and weight loss. Overall improving. Currently assessing ability to return home w/ family support vs acute rehab vs SNF. (1) Failure to Thrive - felicity reports instances where Ford was incontinent, expressed being unable to move from one place to another, and had decreased appetite leading to 8kg weight loss since Fall 2020. - pt appetite/po intake has been good throughout his stay - Options of discharge to [facility] vs grandson[facility]; Information Coder is following - OT recommends inpatient rehab until meets OT goals (anticipate OT 2X/wk for 2+ weeks). May then be able to return home w/ family support. - PT recommends inpatient rehab until meets PT goals (anticipate PT 3-5 sessions). May then be able to return home w/ family support. - continue PT/OT (2) COPD exacerbation - resolving - back to baseline on Room Air-2L nc; improved from 4L nc in ED - Chest X Ray (05/22): moderate COPD, no evidence of acute cardiopulm disease. - negative COVID test - to finish course of Doxycycline on (100 mg PO BID) - to Prednisone 40mg PO daily in am, Duoneb (3 mL Q2 PRN), Mucinex (600 mg PO BID), and home inhalers (Breo Ellipta) (3) Depression w/ Suicidal Ideation - Reported by grand daughter; Pt denies sx - associated with moving to residential facility following hip fracture in January - guns in the home; but pt has no access to them (grandson changed locks) or ammunition - Psych consult: Adjustment disorder with depressed mood. DMC to leave AMA. DMC criteria for inp hospitalization. Safe to discharge once stabilized - Continue Mirtazapine 7.5 qhs; tolerating it well without side effects. after 1 week could be increased to 15mg qhs and then further titrated to 30mg qhs if beneficial; in future as an outpatient if mirtazapine ineffective other options for depression would be SSRI likely would start with sertraline 25mg qd for 2 weeks and then if tolerated could increase to 50mg qd for depression. (4) Hypertension - 133/71 - continue Amlodipine + Flomax (5) GERD - continue PPI (6) Dementia - reported by grandson; approx 4 years - TSH, B12 WNL; B1 still pending (7) BPH - continue Finasteride + Flomax Diet: Reg Code: Full DVT: Heparin Dispo - await rehab placement Admission and Anticipated Discharge Date Admission Date: May 24, 2021 Subjective Denies any concerns. No shortness of breath, chest pain eager to be discharged from hospital. appetite normal Physical Exam Constitutional: WD/WN, vitals as above Respiratory: No resp distress Lung - decreased Breath sounds globally Cardiovascular: Regular rate rhythm Psychiatric: Alert to self and place. Normal mood Results & Data Results & Data ([facility]) Vital Signs (Past 12 Hours) Vital Signs Temp Pulse Pulse Resp BP BP Pulse Ox 05/26/21 19:07 37.2 C 81 18 139/66 91 05/26/21 15:15 78 05/26/21 14:57 37.5 C 78 20 137/71 97 05/26/21 11:13 37.1 C 76 20 124/56 L 96
[2021-05-26] MEDS: amLODIPine BESYLATE 5 MG TAB PO SCH (20:05)
[2021-05-26] MEDS: TAMSULOSIN HCL 0.4 MG CAP PO SCH (20:05)
[2021-05-26] MEDS: MIRTAZAPINE TAB 15 MG TAB PO SCH (20:06)
[2021-05-27] MEDS: CALCITRIOL 0.25 MCG CAPSULE PO SCH (08:35)
[2021-05-27] MEDS: FINASTERIDE 5 MG TAB PO SCH (08:36)
[2021-05-27] MEDS: CALCIUM CARBONATE 500 MG CHEWABLE TAB PO SCH ×2 (08:36→20:21)
[2021-05-27] MEDS: DOXYCYCLINE HYCLATE 100 MG CAP PO SCH ×2 (08:36→18:25)
[2021-05-27] MEDS: MULTIVITAMIN TAB PO SCH (08:36)
[2021-05-27] MEDS: HEPARIN SOD 5,000 UNIT/0.5 ML VIAL SQ SCH ×2 (08:36→20:20)
[2021-05-27] MEDS: PANTOprazole 40 MG TAB PO SCH ×2 (08:37→20:21)
[2021-05-27] MEDS: guaiFENesin 600 MG TABCR PO SCH ×2 (08:37→20:20)
[2021-05-27] MEDS: DOCUSATE SODIUM 100 MG CAP PO SCH ×2 (08:37→20:21)
[2021-05-27] MEDS: FLUTICASONE/VILANTEROL 100/25MCG 14 PUFFS/INHALER INH SCH (08:37)
--- NOTE | 2021-05-27 17:05 | Hospitalist Progress Note ---
Date of Service May 27, 2021 Assessment & Plan (1) Failure to thrive in adult: Plan: 86 yo male with hx of hypoxic respiratory failure secondary to COPD (at home: 2.5-3.5 L nc O; at times noncompliant w/ O2 + inhalers), dementia, hypertension presents due to granddaughter's concern about weakness, worsening dyspnea, cough, loss of appetite, and weight loss. Overall improving. Currently assessing ability to return home w/ family support vs acute rehab vs SNF. (05/27) Spoke with grandsami via phone. Discussed options for patient. Pt likely won't qualify for acute rehab or SNF since he if functioning well during PT/OT sessions. Mood has improved and able to ambulate to urinal without complaint. Eating well on Remron. 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 (1) Failure to Thrive - felicity reports instances where Ford was incontinent, expressed being unable to move from one place to another, and had decreased appetite leading to 8kg weight loss since Fall 2020. - pt appetite/po intake has been good throughout his stay - continue PT/OT (2) COPD exacerbation - resolving - back to baseline on Room Air-2L nc; improved from 4L nc in ED - Chest X Ray (05/22): moderate COPD, no evidence of acute cardiopulm disease. - negative COVID test - to finish course of Doxycycline on (100 mg PO BID) - to Prednisone 40mg PO daily in am, Duoneb (3 mL Q2 PRN), Mucinex (600 mg PO BID), and home inhalers (Breo Ellipta) (3) Depression w/ Suicidal Ideation - Reported by grand daughter; Pt denies sx - associated with moving to [facility] facility following hip fracture in January - guns in the home; but pt has no access to them (grandson changed locks) or ammunition - Psych consult: Adjustment disorder with depressed mood. DMC to leave AMA. DMC criteria for inp hospitalization. Safe to discharge once stabilized - Continue Mirtazapine 7.5 qhs; tolerating it well without side effects. after 1 week could be increased to 15mg qhs and then further titrated to 30mg qhs if beneficial; in future as an outpatient if mirtazapine ineffective other options for depression would be SSRI likely would start with sertraline 25mg qd for 2 weeks and then if tolerated could increase to 50mg qd for depression. (4) Hypertension - 106/60 - continue Amlodipine + Flomax (5) GERD - continue PPI (6) Dementia - reported by grandsami; approx 4 years - TSH, B12, B1 WNL (7) BPH - continue Finasteride + Flomax Diet: Reg Code: Full DVT: Heparin Dispo: discharge home tomorrow afternoon with grandson; RENE following for home health Admission and Anticipated Discharge Date Admission Date: May 24, 2021 Supervising Physician Co-Signing Physician Notes Resident Physician Supervision Note: I independently interviewed and examined the patient and verified the king history and physical, reviewed labs and image studies and agree with resident Dr. Miller findings and care plan. Subjective Comfortable laying in bed. In good spirits. Wants to go home. Talks about how he only has a few years left to live and is understanding of that. Review of Systems Review of Systems: All systems reviewed & are unremarkable except as noted in HPI & below Constitutional: denies fevers, fatigue CV: denies chest pain Resp: denies shortness of breath GI: denies abdominal pain, nausea, vomiting, constipation, diarrhea : denies pain with urination Physical Exam Constitutional: WD/WN, vitals as above Respiratory: normal respiratory effort; no labored breathing Auscultation: lungs clear to auscultation bilaterally Cardiovascular: Rate/Rhythm: regular rate and regular rhythm Gastrointestinal (Abdomen): Inspection/Auscultation: normal bowel sounds Percussion/Palpation: abdomen soft; abdomen nontender and no guarding Psychiatric: A+Ox3, euthymic affect Results & Data Results & Data ([facility]) Vital Signs (Past 12 Hours) Vital Signs Temp Pulse Pulse Resp BP Pulse Ox 05/27/21 16:35 80 05/27/21 16:00 36.9 C 72 18 106/60 97 05/27/21 11:38 36.8 C 64 18 121/51 L 97 05/27/21 07:55 36.8 C 64 18 142/68 H 97 05/27/21 07:24 65 Resident Activity Tracking Resident Involvement: Resident Care Provided Care Provided: Adult Hospital Medicine
[2021-05-27] MEDS: amLODIPine BESYLATE 5 MG TAB PO SCH (20:21)
[2021-05-27] MEDS: TAMSULOSIN HCL 0.4 MG CAP PO SCH (20:21)
[2021-05-27] MEDS: MIRTAZAPINE TAB 15 MG TAB PO SCH (20:22)
[2021-05-28] MEDS: DOXYCYCLINE HYCLATE 100 MG CAP PO SCH (06:22)
[2021-05-28] MEDS: HEPARIN SOD 5,000 UNIT/0.5 ML VIAL SQ SCH (07:41)
[2021-05-28] MEDS: guaiFENesin 600 MG TABCR PO SCH (07:41)
[2021-05-28] MEDS: PANTOprazole 40 MG TAB PO SCH (07:42)
[2021-05-28] MEDS: FINASTERIDE 5 MG TAB PO SCH (07:42)
[2021-05-28] MEDS: DOCUSATE SODIUM 100 MG CAP PO SCH (07:42)
[2021-05-28] MEDS: MULTIVITAMIN TAB PO SCH (07:42)
[2021-05-28] MEDS: CALCIUM CARBONATE 500 MG CHEWABLE TAB PO SCH (07:42)
[2021-05-28] MEDS: CALCITRIOL 0.25 MCG CAPSULE PO SCH (07:42)
[2021-05-28] MEDS: FLUTICASONE/VILANTEROL 100/25MCG 14 PUFFS/INHALER INH SCH (07:43)
[2021-05-28] MEDS ORDERED: Nursing to Pharmacy Communication SCH (14:30)
[2021-05-28] MEDS ORDERED: DOXYCYCLINE HYCLATE 100 MG CAP PO ONE (14:45)
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
== END 2021-05-28 15:58 | disposition home health service (06) | DRG 189 ==
LOC: 2N 10:46 → ED 10:46 → SUATTDRO 14:23 → 2N 16:44
DX: Z87.891 Personal history of nicotine dependence; J96.21 Acute and chronic respiratory failure with hypoxia; Z88.5 Allergy status to narcotic agent; E43 Unspecified severe protein-calorie malnutrition; J44.1 Chronic obstructive pulmonary disease with (acute) exacerbation; R62.7 Adult failure to thrive; K21.9 Gastro-esophageal reflux disease without esophagitis; G47.00 Insomnia, unspecified; Z91.19 Patient's noncompliance with other medical treatment and regimen; I10 Essential (primary) hypertension; F03.90 Unspecified dementia, unspecified severity, without behavioral disturbance, psychotic disturbance, mood disturbance, and anxiety; Z99.81 Dependence on supplemental oxygen; N40.1 Benign prostatic hyperplasia with lower urinary tract symptoms; F32.A Depression, unspecified; R45.851 Suicidal ideations; F43.21 Adjustment disorder with depressed mood; G31.84 Mild cognitive impairment of uncertain or unknown etiology; R32 Unspecified urinary incontinence; D64.9 Anemia, unspecified; J96.22 Acute and chronic respiratory failure with hypercapnia

== ENCOUNTER 2021-08-15 18:21 | Inpatient (IN) ==
--- NOTE | 2021-08-15 18:45 | Emergency Department Note ---
Impression & Plan Adult failure to thrive ADMIT ED Provider Note HPI: The patient is an 86-year-old male history of COPD, on home oxygen, dementia, who presents the emergency department for evaluation from home via EMS. Patient reportedly lives with his grandchildren. On arrival here to the ED the patient is hemodynamically stable, he tells me he does not know why he is here. Denies any focal complaint of pain. Appears in no acute distress. ROS: -General: Reported failure to thrive *10 point review systems was conducted and is otherwise negative unless stated above *Outpatient medications and allergy history reviewed PE: General: Frail-appearing, no acute distress HEENT: Normocephalic, atraumatic Eyes: Extraocular eye movement is intact, no scleral erythema Pulmonary: Clear to auscultation bilaterally, no wheezing Cardio: Regular rate and rhythm GI: Abdomen is soft, nontender : No suprapubic tenderness MSK: No evidence of trauma or malformation of the extremities, no edema Skin: No evidence of rash Neuro: Alert, no focal deficits Psychiatric: Cooperative front desk monitor: - An order was placed for continuous cardiac monitoring - Patient was noted to be in sinus rhythm with rate of 70 EKG: Rate: 72 Rhythm: Normal sinus rhythm Intervals: Within normal limits ST changes: No ST elevation Time: 185 Medical Decision Making: Patient presented to the emergency department with failure to thrive, I was able to establish contact with the patient's son as well as [id number] on the phone, they tell me that the patient has not been eating well over the past 5 days, he has not been getting up out of bed and he has been urinating on himself, he has become increasingly difficult to take care of at home and they are interested in placing him in a nursing facility. Patient tells me he does not know why he is here. On arrival the patient is hemodynamically stable, he is saturating well on his baseline nasal cannula oxygen, chest x-ray does not show any evidence of acute pathology, lab work does not show any critical electrolyte abnormalities or acute kidney injury. Patient does not have any outward evidence of trauma, there is reportedly no evidence of any recent falls. He is alert here in the ED, confusion is at baseline with history of dementia. I discussed the above findings with the on-call hospitalist, Dr. Cooper, patient will be admitted for further care and placement according to the family's wishes. Patient was admitted in stable condition. Diagnosis: 1. Failure to thrive 2. Encounter for placement/penitentiary placement 3. Acute on chronic anemia 4. Hyperglycemia without DKA 5. Diminished appetite Disposition: Admission Jagdish Lamar DO Emergency Medicine Past Med/Surg History Medical History (Updated 08/16/21 @ 00:47 by Jagdish Lamra DO) Chronic hypoxemic respiratory failure Chronic obstructive pulmonary disease Colostomy complication COPD (chronic obstructive pulmonary disease) COPD exacerbation Hyperparathyroidism Hypertension Pneumonia Pneumoperitoneum s/p hemicolectomy and colostomy formation Sepsis Suicidal ideation Surgical History History of colon resection with colostomy formation Family History Denies family history of Ovarian cancer Prostate cancer Myocardial infarction Breast cancer Colorectal cancer Social History Smoking Status: Former smoker Tobacco Type: Cigarettes and Cigars Age Started Using Tobacco: 19; Age Quit Using Tobacco: 23; packs per day: 0.5; Second Hand Exposure: No; Hx Alcohol Use: No Hx Substance Use: No Preferred Language: French Communication Ability: Effective Visual Impairment: No Limitations Hearing Ability: Normal Part Maker Required: No Beliefs That Will Affect Care: None marital status: Current Living Situation: Family Current Living Situation Comment: grandchildren; is in [facility] current occupational status: retired 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 How many Children do You have: 2 Other Information That Helps Us Care for You: No Feels Safe at Home: Yes Safety Concerns: Feels Safe At This Time Childhood Exposure to Second-Hand Smoke: Yes Dental Care, Regularly: No Physical Activity Frequency: Does not Exercise Seatbelt Use: always Sunscreen Use: No Assistive Devices: Denture - Upper, Glasses, Oxygen - Continuous and Walker Allergies Allergies Allergy/AdvReac Type Severity Reaction Status Date / Time morphine AdvReac Severe Agitated Verified 08/15/21 21:46 Home Meds Home Medications Medication Instructions Recorded Confirmed docusate sodium 100 mg capsule 200 mg PO BID 04/23/18 08/15/21 [id number] acid 0.4 1 tab PO DAILY 04/23/18 08/15/21 mg-lycopene 300 mcg-lutein 250 mcg tablet (Centrum Silver) calcium carbonate 400 mg calcium 400 mg PO BID tab 07/07/20 08/15/21 (1,000 mg) chewable tablet (Tums Ultra) Saccharomyces boulardii 250 mg 250 mg PO DAILY 08/15/21 08/15/21 capsule (Florastor) amlodipine 10 mg tablet 10 mg PO PM 08/15/21 08/15/21 Previous Rx's Medication Instructions Recorded guaifenesin 600 mg tablet, 600 mg PO BID #60 tab 12/05/19 extended release 12 hr pantoprazole 40 mg tablet,delayed 40 mg PO BID #60 tab 01/06/21 release finasteride 5 mg tablet 5 mg PO DAILY #90 tab 03/09/21 tamsulosin 0.4 mg capsule 0.4 mg PO HS #90 cap 03/14/21 calcitriol 0.25 mcg capsule 0.25 mcg PO DAILY #30 cap 03/15/21 mirtazapine 15 mg tablet (Remeron) 15 mg PO DAILY #90 tab 06/07/21 fluticasone 250 mcg-salmeterol 50 1 inh INHALATION BID #60 ea 07/20/21 mcg/dose blistr powdr for inhalation (Advair Diskus) ipratropium 20 mcg-albuterol 100 1 puff INHALATION QID #1 inhaler 07/20/21 mcg/actuation mist for inhalation (Combivent Respimat) Results & Data (ED) Vital Signs Vital Signs - 24 hr 08/15/21 18:30 08/15/21 19:14 08/15/21 19:16 Temperature 37.1 C Temperature Source Oral Pulse Rate 82 74 Pulse Rate [Apical] 73 Pulse Rhythm Regular Respiratory Rate 21 21 20 Blood Pressure 155/90 H Blood Pressure [Right Arm] Blood Pressure Mean 111 Blood Pressure Mean [Right Arm] Blood Pressure Position Lying Pulse Oximetry 98 96 97 Oxygen Delivery Method Nasal Cannula Nasal Cannula Nasal Cannula Oxygen Flow Rate 4 4 4 Sepsis Recent Fever Within 48 Hours No Sepsis New/Unexplained Change in Mental Status N/A Sepsis Action Taken by Nursing No Action Required 08/15/21 20:00 08/15/21 21:00 Temperature Temperature Source Pulse Rate Pulse Rate [Apical] 72 75 Pulse Rhythm Respiratory Rate 24 20 Blood Pressure Blood Pressure [Right Arm] 144/75 H 150/75 H Blood Pressure Mean Blood Pressure Mean [Right Arm] 98 100 Blood Pressure Position Pulse Oximetry 94 Oxygen Delivery Method Nasal Cannula Oxygen Flow Rate 4 Sepsis Recent Fever Within 48 Hours Sepsis New/Unexplained Change in Mental Status Sepsis Action Taken by Nursing Laboratory Data Result diagrams: 08/15/21 19:13 08/15/21 19:13 Lab Results 08/15/21 08/15/21 08/15/21 Range/Units 19:12 19:13 19:13 WBC 7.94 (4.8-10.8) K/uL RBC 4.12 L (4.7-6.1) M/uL Hgb 12.1 L (14.0-18.0) g/dL Hct 38.7 L (42-52) % MCV 93.9 (80-100) fL MCH 29.4 (25-34) pg MCHC 31.3 L (32-36) g/dL RDW Std Deviation 50.3 H (36.4-46.3) fL RDW Coeff of Syl 14.7 H (11.5-14.5) % Plt Count 234 (130-400) K/uL MPV 11.2 H (7.4-10.4) fL Immature Gran % (Auto) 0.1 % Neut % (Auto) 78.9 % Lymph % (Auto) 11.5 % [place] % (Auto) 7.7 % Eos % (Auto) 1.3 % Baso % (Auto) 0.5 % Neut # (Auto) 6.27 (1.4-6.5) K/uL Lymph # (Auto) 0.91 L (1.2-3.4) K/uL [place] # (Auto) 0.61 H (0.11-0.59) K/uL Eos # (Auto) 0.10 (0-0.5) K/uL Baso # (Auto) 0.04 (0-0.2) K/uL Immature Gran # (Auto) 0.01 (0.00-0.02) K/uL PT 11.2 (9.0-12.0) Seconds INR 1.1 (0.9-1.1) APTT 26.2 (21.0-31.0) Seconds PTT Ratio 1.0 VBG pH (7.36-7.41) VBG pCO2 (38-50) mmHg VBG pO2 mmHg VBG HCO3 mmol/L VBG O2 Saturation % VBG Base Excess mEq/L Barometric Pressure mm/Hg Sodium (136-145) mmol/L Potassium (3.5-5.1) mmol/L Chloride (98-107) mmol/L Carbon Dioxide (21-32) mmol/L Anion Gap (3-11) BUN (6-23) mg/dl Creatinine (0.6-1.4) mg/dl Est Cr Clr Drug Dosing ml/min Est GFR ( Amer) ml/min Est GFR (Non-Af Amer) ml/min BUN/Creatinine Ratio (10-20) Glucose (70-99(Fasting)) mg/dl Calcium (8.5-10.1) mg/dl Total Bilirubin (0.2-1.0) mg/dl AST (13-39) U/L ALT (7-52) U/L Alkaline Phosphatase (34-104) U/L Total Protein (6.0-8.3) gm/dl Albumin (3.4-5.0) gm/dl Globulin (2.5-4.0) gm/dl Albumin/Globulin Ratio (0.9-2) SARS-CoV-2, RNA, NAAT NEGATIVE (NEGATIVE) 08/15/21 08/15/21 Range/Units 19:13 19:13 WBC (4.8-10.8) K/uL RBC (4.7-6.1) M/uL Hgb (14.0-18.0) g/dL Hct (42-52) % MCV (80-100) fL MCH (25-34) pg MCHC (32-36) g/dL RDW Std Deviation (36.4-46.3) fL RDW Coeff of Syl (11.5-14.5) % Plt Count (130-400) K/uL MPV (7.4-10.4) fL Immature Gran % (Auto) % Neut % (Auto) % Lymph % (Auto) % [place] % (Auto) % Eos % (Auto) % Baso % (Auto) % Neut # (Auto) (1.4-6.5) K/uL Lymph # (Auto) (1.2-3.4) K/uL [place] # (Auto) (0.11-0.59) K/uL Eos # (Auto) (0-0.5) K/uL Baso # (Auto) (0-0.2) K/uL Immature Gran # (Auto) (0.00-0.02) K/uL PT (9.0-12.0) Seconds INR (0.9-1.1) APTT (21.0-31.0) Seconds PTT Ratio VBG pH 7.35 L (7.36-7.41) VBG pCO2 65 H (38-50) mmHg VBG pO2 22 mmHg VBG HCO3 35 mmol/L VBG O2 Saturation < 60.0 % VBG Base Excess 7.0 mEq/L Barometric Pressure 732.7 mm/Hg Sodium 143 (136-145) mmol/L Potassium 3.6 (3.5-5.1) mmol/L Chloride 103 (98-107) mmol/L Carbon Dioxide 36 H (21-32) mmol/L Anion Gap 4 (3-11) BUN 26 H (6-23) mg/dl Creatinine 1.03 (0.6-1.4) mg/dl Est Cr Clr Drug Dosing 38.6 ml/min Est GFR ( Amer) 74.8 ml/min Est GFR (Non-Af Amer) 64.6 ml/min BUN/Creatinine Ratio 25.2 H (10-20) Glucose 175 H (70-99(Fasting)) mg/dl Calcium 9.4 (8.5-10.1) mg/dl Total Bilirubin 0.5 (0.2-1.0) mg/dl AST 27 (13-39) U/L ALT 33 (7-52) U/L Alkaline Phosphatase 85 (34-104) U/L Total Protein 6.4 (6.0-8.3) gm/dl Albumin 3.8 (3.4-5.0) gm/dl Globulin 2.6 (2.5-4.0) gm/dl Albumin/Globulin Ratio 1.5 (0.9-2) SARS-CoV-2, RNA, NAAT (NEGATIVE) Imaging Data Radiologist's Impression: Chest X-Ray 08/15/21 18:44 XR chest 1V portable CLINICAL HISTORY: Dyspnea COMPARISON STUDY: Chest CT April 23, 2018. Chest radiograph May 22, 2021. FINDINGS: Lung hyperexpansion is again noted with severe upper lobe predominant emphysema. No pneumothorax or pleural effusion is noted. No consolidation is identified. A calcified left midlung granuloma is again noted. This is benign. Cardiac size is normal. Mediastinal contours are normal. The appearance of the chest is unchanged. IMPRESSION: 1. No acute cardiopulmonary findings. 2. Severe emphysema. ACT 112: Negative or not required by law. Electronically signed by: Law Galan M.D. 08/15/2021 7:25 PM Discharge Plan Visit Data Chief Complaint: Illness ED Provider: Jagdish Lamar Discharge Problem: Adult failure to thrive Patient Disposition: Admitted As Inpatient Discharge Instructions Interventions: ED Discharge Assessment Last Done: 08/15/21 23:00
--- NOTE | 2021-08-15 19:27 | XRay Report ---
XR chest 1V portable CLINICAL HISTORY: Dyspnea COMPARISON STUDY: Chest CT April 23, 2018. Chest radiograph May 22, 2021. FINDINGS: Lung hyperexpansion is again noted with severe upper lobe predominant emphysema. No pneumot horax or pleural effusion is noted. No consolidation is identified. A calcified left midlung granulom a is again noted. This is benign. Cardiac size is normal. Mediastinal contours are normal. The appear ance of the chest is unchanged. IMPRESSION: 1. No acute cardiopulmonary findings. 2. Severe emphysema. ACT 112: Negative or not required by law. Electronically signed by: Law Galan M.D. 08/15/2021 7:25 PM
[2021-08-15 19:29] LABS: Basophils # (auto) 0.04 K/uL (0-0.2); Basophils % (auto) 0.5 %; Eosinophils % (auto) 1.3 %; Hematocrit (blood only) 38.7 % (42-52); Hemoglobin 12.1 g/dL (14.0-18.0); Immature Granulocytes # (auto) 0.01 K/uL (0.00-0.02); Immature Granulocytes % (auto) 0.1 %; Lymphocytes # (auto) 0.91 K/uL (1.2-3.4); Lymphocytes % (auto) 11.5 %; Mean Corpuscular Hemoglobin 29.4 pg (25-34); Mean Corpuscular Hgb Conc 31.3 g/dL (32-36); Mean Corpuscular Volume 93.9 fL (80-100); Mean Platelet Volume 11.2 fL (7.4-10.4); Monocytes # (auto) 0.61 K/uL (0.11-0.59); Monocytes % (auto) 7.7 %; Neutrophils # (auto) 6.27 K/uL (1.4-6.5); Neutrophils % (auto) 78.9 %; Platelet Count 234 K/uL (130-400); RDW Coefficient of Variation 14.7 % (11.5-14.5); RDW Standard Deviation 50.3 fL (36.4-46.3); Red Blood Count 4.12 M/uL (4.7-6.1); White Blood Count 7.94 K/uL (4.8-10.8)
[2021-08-15 19:34] LABS: INR 1.1 (0.9-1.1); Partial Thromboplastin Time 26.2 Seconds (21.0-31.0); Prothrombin Time 11.2 Seconds (9.0-12.0)
[2021-08-15 19:42] LABS: HCO3 VBG 35 mmol/L; PCO2 VBG 65 mmHg (38-50); PO2 VBG 22 mmHg; pH VBG 7.35 (7.36-7.41)
[2021-08-15 19:44] LABS: Albumin Globulin Ratio 1.5 (0.9-2); Albumin Level 3.8 gm/dl (3.4-5.0); BUN Creatinine Ratio 25.2 (10-20); Bilirubin,Total 0.5 mg/dl (0.2-1.0); Calcium 9.4 mg/dl (8.5-10.1); Creatinine Clr Calc Pharmacy 38.6 ml/min; Est GFR (African American) 74.8 ml/min; Est GFR (Non-African American) 64.6 ml/min; Globulin 2.6 gm/dl (2.5-4.0); Potassium 3.6 mmol/L (3.5-5.1); Total Protein 6.4 gm/dl (6.0-8.3)
[2021-08-15 19:57] LABS: Oxygen Saturation VBG < 60.0 %
--- NOTE | 2021-08-15 20:45 | History & Physical Report ---
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- not an acute exacerbation - Continue with home inhalers although may benefit to easier to use delivery methods with his mentation and dexterity - Moist cough and wet voice with talking that he has to clear his throat- may have aspirtion component as well- will have TELEVISION ANALYZER re-evaluate the pateint - Will add nebulizers on as well as flutter valve QID and vest therapy - Continue with home oxygen - mild elevation in Co2 (2) Failure to thrive in adult: Plan: This is family's biggest concern with him returning to home as they are reportedly unable to get him to take his medication and/or eat - Case management consultation placed - Reported by family that he does not allow home [place] assistance in to help him - PT/OT consultation placed (3) Urinary incontinence: Plan: secondary to dementia (4) BPH loc w urin obs/LUTS: Plan: Continue with Tamsulosin (5) Dementia: Plan: Continue mirtazapine- unsure of who is following this chronically - previously started with psych evaluation in 06/07 for depresison secondary to adjustment disorder with depressed mood (6) Mood disorder: Plan: Previously started on Mirtazapine and if ineffective possible addition of sertraline - sertraline not started (7) Severe protein-calorie malnutrition: Plan: Nutrition consultation- evaluate for supplementation with shakes (8) GERD (gastroesophageal reflux disease): Plan: Continue with PPI BID - may have aspiration component as well- consider adjusting (9) Hypertension: Plan: Continue amlodipine (10) History of hyperparathyroidism: Plan: With history of parathyroid surgery in 2018 secondary to adenomas. - previously followed with Endocrinology- had calcitriol discontinued and then re-instituted in 07/04 - was placed on calcium supplementation for bone health - his calcium in 9.4 on draws today- with reports he is not taking medications at home- has not had calcium check since may- prior to this was getting them drawn monthly - may consider discontinuing for less medications or if palliative care discussions progress History of Present Illness Primary Care Provider: Mateus Boyd MD 86 YOM with medical history of: COPD (on home oxygen), failure to thrive, BPH, Dementia, malnutrition secondary to decrease caloric intake, reported depression, colostomy with hernia. Patient was brought in via EMS from home where he lives with his grandson and grandson's . Did discuss with them on the phone. They were concerned as he still appears to be short of breath at home and coughing as well as reports that he is not getting up out of his chair to eat or take his medications, they report consistent incontinence to the point his depends are falling apart. Patient was previously admitted in May for failure to thrive and hypoxia and family reports that home health did come but the patient stopped letting them in to assist. He was evaluated in June by pulmonary for his end-stage COPD with palliative care discussion started but referred back to PCP. Overall the family is having difficulty taking care of him at home as reported by [id number] and son on the phone. The patient's is at [facility] and they would favor to have him there as well. In the EMD he had a CXR completed and routine labs done to include VBG. VBG with mild hypercarbia above his baseline, elevated bicarb, he has moist cough and wet sounding voice. He is on his baseline 4L oxygen at home. Last TELEVISION ANALYZER was from 02/03 noted with aspiration precautions. Patient will be admitted to medical surgical floor- will place on scheduled nebulizers with flutter valve or chest physiotherapy for secretion clearance. TELEVISION ANALYZER consultation and case management consultation for possible placement. Patient does have dementia with poor recall, he is unable to tell me why he came to the hospital or how he got here. He does say that he gets up and walks around the house, and is unable to tell me where his is at. Allergies Allergy/AdvReac Type Severity Reaction Status Date / Time morphine AdvReac Severe Agitated Verified 08/15/21 21:46 Home Medications Medication Instructions Recorded Confirmed Type docusate sodium 100 mg capsule 200 mg PO BID 04/23/18 08/15/21 History tolbauus-xid-wdlgz acid 0.4 1 tab PO DAILY 04/23/18 08/15/21 History mg-lycopene 300 mcg-lutein 250 mcg tablet (Centrum Silver) guaifenesin 600 mg tablet, 600 mg PO BID #60 tab 12/05/19 08/15/21 Rx extended release 12 hr calcium carbonate 400 mg calcium 400 mg PO BID tab 07/07/20 08/15/21 History (1,000 mg) chewable tablet (Tums Ultra) pantoprazole 40 mg tablet,delayed 40 mg PO BID #60 tab 01/06/21 08/15/21 Rx release finasteride 5 mg tablet 5 mg PO DAILY #90 tab 03/09/21 08/15/21 Rx tamsulosin 0.4 mg capsule 0.4 mg PO HS #90 cap 03/14/21 08/15/21 Rx calcitriol 0.25 mcg capsule 0.25 mcg PO DAILY #30 cap 03/15/21 08/15/21 Rx mirtazapine 15 mg tablet (Remeron) 15 mg PO DAILY #90 tab 06/07/21 08/15/21 Rx fluticasone 250 mcg-salmeterol 50 1 inh INHALATION BID #60 ea 07/20/21 08/15/21 Rx mcg/dose blistr powdr for inhalation (Advair Diskus) ipratropium 20 mcg-albuterol 100 1 puff INHALATION QID #1 inhaler 07/20/21 08/15/21 Rx mcg/actuation mist for inhalation (Combivent Respimat) Saccharomyces boulardii 250 mg 250 mg PO DAILY 08/15/21 08/15/21 History capsule (Florastor) amlodipine 10 mg tablet 10 mg PO PM 08/15/21 08/15/21 History Past Med/Surg History Medical History (Updated 08/16/21 @ 00:47 by Jagdish Lamar DO) Chronic hypoxemic respiratory failure Chronic obstructive pulmonary disease Colostomy complication COPD (chronic obstructive pulmonary disease) COPD exacerbation Hyperparathyroidism Hypertension Pneumonia Pneumoperitoneum s/p hemicolectomy and colostomy formation Sepsis Suicidal ideation Surgical History History of colon resection with colostomy formation Family History Denies family history of Ovarian cancer Prostate cancer Myocardial infarction Breast cancer Colorectal cancer Social History Smoking Status: Former smoker Tobacco Type: Cigarettes and Cigars Age Started Using Tobacco: 19; Age Quit Using Tobacco: 23; packs per day: 0.5; Second Hand Exposure: No; Hx Alcohol Use: No Hx Substance Use: No Preferred Language: Hungarian Communication Ability: Effective Visual Impairment: No Limitations Hearing Ability: Normal Fly Raiser Lockstitch Required: No Beliefs That Will Affect Care: None marital status: Current Living Situation: Family Current Living Situation Comment: grandchildren; is in [facility] current occupational status: retired 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 Physical Exam Physical Exam: PHYSICAL EXAM: General: awake, alert, confused Head: Normocephalic, atraumatic ENT: PERRL, EOMI, no pharyngeal exudate, mucous membranes dry Neuro: AAO x 3, speech clear and appropriate, strength intact bilaterally 5/5, sensation intact and equal all extremities and dermatomes, no pronator drift Chest: equal rise and fall of the chest, moist cough, with scattered wheezing throughout Cardiac: Regular rate and rhythm, telemetry reviewed, skin warm dry, cap refill <3 seconds, peripheral pulses +2 no JVD, no murmur, no edema GI: NABS x 4 quadrants, soft, palpable hernia : Spontaneously voiding, no pain, no CVA tenderness, Extremities: Normal inspection, no peripheral edema or erythema, calfs nontender to palpation Psych: dementia, pleasantly confused Skin: no rash or erythema Results & Data Results & Data ([facility]) Vital Signs (Past 12 Hours) Vital Signs Temp Pulse Pulse Resp BP Pulse Ox 08/15/21 19:16 73 20 97 08/15/21 19:14 74 21 96 08/15/21 18:30 37.1 C 82 21 155/90 H 98 Laboratory Results Abnormal Labs 08/15/21 08/15/21 08/15/21 19:13 19:13 19:13 RBC 4.12 L Hgb 12.1 L Hct 38.7 L MCHC 31.3 L RDW Std Deviation 50.3 H RDW Coeff of Syl 14.7 H MPV 11.2 H Lymph # (Auto) 0.91 L Story # (Auto) 0.61 H VBG pH 7.35 L VBG pCO2 65 H Carbon Dioxide 36 H BUN 26 H BUN/Creatinine Ratio 25.2 H Glucose 175 H Diagnostic Findings Chest X-Ray 08/15/21 18:44 XR chest 1V portable CLINICAL HISTORY: Dyspnea COMPARISON STUDY: Chest CT April 23, 2018. Chest radiograph May 22, 2021. FINDINGS: Lung hyperexpansion is again noted with severe upper lobe predominant emphysema. No pneumothorax or pleural effusion is noted. No consolidation is identified. A calcified left midlung granuloma is again noted. This is benign. Cardiac size is normal. Mediastinal contours are normal. The appearance of the chest is unchanged. IMPRESSION: 1. No acute cardiopulmonary findings. 2. Severe emphysema. ACT 112: Negative or not required by law. Electronically signed by: Law Galan M.D. 08/15/2021 7:25 PM Medications Administered Home Medications Saccharomyces boulardii 250 mg capsule (Florastor) 250 mg PO UD 04/23/18 [History Confirmed 05/30/21] docusate sodium 100 mg capsule 200 mg PO BID 04/23/18 [History Confirmed 05/30/21] ferrous sulfate 325 mg (65 mg iron) tablet (iron) 325 mg PO UD 04/23/18 [History Confirmed 05/30/21] egqfdsti-upc-nrpyw acid 0.4 mg-lycopene 300 mcg-lutein 250 mcg tablet (Centrum Silver) 1 tab PO DAILY 04/23/18 [History Confirmed 05/30/21] guaifenesin 600 mg tablet, extended release 12 hr 600 mg PO BID #60 tab 12/05/19 [Rx Confirmed 05/30/21] calcium carbonate 400 mg calcium (1,000 mg) chewable tablet (Tums Ultra) 400 mg PO BID tab 07/07/20 [History Confirmed 05/30/21] pantoprazole 40 mg tablet,delayed release 40 mg PO BID #60 tab 01/06/21 [Rx Confirmed 05/30/21] amlodipine 10 mg tablet 5 mg PO PM #90 tab 02/16/21 [Rx Confirmed 05/30/21] finasteride 5 mg tablet 5 mg PO DAILY #90 tab 03/09/21 [Rx Confirmed 05/30/21] tamsulosin 0.4 mg capsule 0.4 mg PO HS #90 cap 03/14/21 [Rx Confirmed 05/30/21] calcitriol 0.25 mcg capsule 0.25 mcg PO DAILY #30 cap 03/15/21 [Rx Confirmed 05/30/21] mirtazapine 15 mg tablet (Remeron) 15 mg PO DAILY #90 tab 06/07/21 [Rx Confirmed 06/07/21] fluticasone 250 mcg-salmeterol 50 mcg/dose blistr powdr for inhalation (Advair Diskus) 1 inh INHALATION BID #60 ea 07/20/21 [Rx Confirmed 07/20/21] ipratropium 20 mcg-albuterol 100 mcg/actuation mist for inhalation (Combivent Respimat) 1 puff INHALATION QID #1 inhaler 07/20/21 [Rx Confirmed 07/20/21] ECG Additional Comments: Normal sinus rhythm Left axis deviation Incomplete right bundle branch block Septal infarct , age undetermined Abnormal ECG Code Status & VTE Plan Code Status CODE: DNR/DNI VTE: SCDs, Heparin 5000 units sub q q12 Supervising Physician Co-Signing Physician Notes Patient seen and examined, chart reviewed, case discussed with TERRENCE Wei and I agree with his assessment and plan as documented above. In brief, patient is an 86-year-old male with history of COPD on home oxygen, dementia, depression, poor oral intake. Patient lives with his grandson and his grandson's . Has reportedly been doing poorly at home to include shortness of breath, cough, decreased oral intake and activity. Family is requesting placement. Patient with no complaints at present. States he does not know why he is here in the hospital. On physical exam he is afebrile, hemodynamically stable, awake and oriented to self and hospital. Skinno rash HEENTnormocephalic/atraumatic, dry mucous membranes Heart+ S1, S2, regular, no murmur/rub/gallops Lungsequal air entry bilaterally, no rales/rhonchi/wheezes. He does have a moist cough Abdomen+ bowel sounds, soft, nontender/nondistended Extremitieswarm, well perfused Labs and images reviewed. Significant for stable normochromic/normocytic anemia Chest x-ray with no acute findings Assessment/plan: 86-year-old male with COPD on home O2 presenting from home with failure to thrive. Family is requesting placement. Continue home medications, supplemental oxygen as above. We will order speech/swallow evaluation to reassess aspiration risk PT/OT/case management for placement needs Remainder of plan as above PG Care Time/CCT Total # of Minutes Spent Total Time Spent with Patient: Total time spent is greater than 50% in coordination of care (as documented) at patient's floor/unit and/or counseling patient: Coding Level of Care Code INT OBSERVATION CARE 70M LVL 3 Diagnoses Chronic obstructive pulmonary disease J44.9 Failure to thrive in adult R62.7 Urinary incontinence R32 BPH loc w urin obs/LUTS N40.1 Severe protein-calorie malnutrition E43 Dementia F03.90 GERD (gastroesophageal reflux disease) K21.9 Hypertension I10 Hypertension type: unspecified History of hyperparathyroidism Z86.39 Mood disorder F39 (1) Hypertension Hypertension type: unspecified Qualified Code(s): I10 - Essential (primary) hypertension
[2021-08-15] MEDS ORDERED: NON-FORMULARY MEDICATION (Ferrous Sulfate [Iron] 325 mg (65 mg iron) Tablet) PO SCH (23:14)
[2021-08-15] MEDS ORDERED: ACETAMINOPHEN 325 MG TAB PO PRN (23:14)
[2021-08-15] MEDS ORDERED: ALBUT/IPRATROP 3MG/0.5MG NEB 3 ML VIAL NEB PRN (23:14)
[2021-08-16] MEDS: Albuterol HFA 8 GM Inhaler (Combivent Respimat P&T Subs) INH SCH ×4 (07:14→19:04)
[2021-08-16] MEDS: Ipratropium HFA Inhaler (Combivent Respimat P&T Subs) INH SCH ×4 (07:14→19:04)
[2021-08-16 07:19] LABS: Basophils # (auto) 0.04 K/uL (0-0.2); Basophils % (auto) 0.6 %; Eosinophils # (auto) 0.09 K/uL (0-0.5); Eosinophils % (auto) 1.3 %; Hematocrit (blood only) 38.5 % (42-52); Immature Granulocytes # (auto) 0.01 K/uL (0.00-0.02); Immature Granulocytes % (auto) 0.1 %; Lymphocytes # (auto) 0.98 K/uL (1.2-3.4); Lymphocytes % (auto) 14.4 %; Mean Corpuscular Hemoglobin 29.9 pg (25-34); Mean Corpuscular Hgb Conc 31.2 g/dL (32-36); Mean Platelet Volume 11.2 fL (7.4-10.4); Monocytes # (auto) 0.76 K/uL (0.11-0.59); Monocytes % (auto) 11.2 %; Neutrophils # (auto) 4.91 K/uL (1.4-6.5); Neutrophils % (auto) 72.4 %; Platelet Count 244 K/uL (130-400); RDW Coefficient of Variation 14.4 % (11.5-14.5); RDW Standard Deviation 50.9 fL (36.4-46.3); Red Blood Count 4.01 M/uL (4.7-6.1); White Blood Count 6.79 K/uL (4.8-10.8)
[2021-08-16] MEDS ORDERED: THIAMINE HCL 200 MG in SODIUM CHLORIDE 0.9% 50 ML IV STA (08:00)
--- NOTE | 2021-08-16 08:00 | Hospitalist Progress Note ---
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 Followed by pulm, recently seen, talks of palliative but deferred to PCP. At that time Group D COPD Typically had been using 2-2.5L NC at home, currently up to 4L at rest. CXR negative, severe emphysema. Mild elevation CO2 on admission Titrate O2 to maintain sats Flutter valve/vest therapy Continue home inhalers, duonebs prn Added mucinex BID as takes at home Speech saw -- able to tolerate diet without issue. No further follow-up unless witnessed dysphagia or aspiration PT/OT consulted Per son/cxouelbb-wg-vlh (whom patient lives with), patient at [facility] and they are becoming more unable to take care of him and consider placement at [facility] CM to follow (2) Failure to thrive in adult: Plan: This is family's biggest concern with him returning to home as they are reportedly unable to get him to take his medication and/or eat PT/OT/CM consulted Speech saw -- has also been tolerating diet well while here. Did get started on remeron last admission and is currently on 15mg. Could consider increasing to 30mg HS as tolerated to increase appetite Reported by family that he does not allow home [place] assistance in to help him (3) Urinary incontinence: Plan: secondary to dementia Urine cx ordered but has been incontinent Prior urine cx + may 2021 --> monitor although denied urinary symptoms does have hx dementia WBC wnl and has been afebrile (4) BPH loc w urin obs/LUTS: Plan: Continue with Tamsulosin (5) Dementia: Plan: Continue mirtazapine- unsure of who is following this chronically - previously started with psych evaluation in 06/07 for depresison secondary to adjustment disorder with depressed mood --> consider increasing to 30mg HS Also checked B12/TSH for completeness --> B12 885, TSH 3.127 wnl Given 200mg IV thiamine x 1 as well, added to labs for completeness (6) Mood disorder: Plan: Previously started on Mirtazapine and if ineffective possible addition of sertraline but could consider increasing remeron as mentioned (7) Severe protein-calorie malnutrition: Plan: Nutrition consultation- evaluate for supplementation with shakes (8) GERD (gastroesophageal reflux disease): Plan: Continue with PPI BID (9) Hypertension: Plan: Continue amlodipine, decreased to 10mg daily as ordered 15mg on admission BP 126/64 (10) History of hyperparathyroidism: Plan: With history of parathyroid surgery in 2018 secondary to adenomas. - previously followed with Endocrinology- had calcitriol discontinued and then re-instituted in 07/04 - was placed on calcium supplementation for bone health - his calcium in 9.5 on draws today- with reports he is not taking medications at home- has not had calcium check since may- prior to this was getting them drawn monthly - may consider discontinuing for less medications or if palliative care discussions progress Will resume calcitriol Plan: continued inpatient stay PT/OT consulted -- likely will need placement Admission and Anticipated Discharge Date Admission Date: August 15, 2021 Subjective Patient evaluated this morning. Doing alright. States no shortness of breath. Currently had nasal cannula off while sleeping and states that happens at home while he's sleeping and he doesn't realize. He notes he is typically on 2L NC but recently had this increased. Currently he knows he is on 4L. He is aware he is in [facility], the year is 2021, but thought the month was July. Endorses he lives at home with son and his and his own is at [facility]. Appears family would like additional help/placement. He is agreeable to such. States does have occasional wet cough but sputum production unknown as he states "once it's up there, it goes back down". Denied issues with swallowing at present time. No fever, chills, chest pain, shortness of breath, abdominal pain, nausea or vomiting reported. Questions/concerns addressed at this time. Review of Systems Review of Systems: All systems reviewed & are unremarkable except as noted in HPI & below Physical Exam Physical Exam: General: awake, alert, WD but malnoursished elderly gentleman sitting up in bed, sleeping with NC off nose, NAD, not tachypneic HEENT: head normocephalic, atraumatic, mm slightly dry, pupils equal and reactive Resp: no cough during encounter, able to talk in complete sentences, NC off currently but had been utilizing 4L (reported 2-2.5L at baseline), not tachypneic, scattered faint wheezing, diminshed throughout CV: RRR, no m/r/g, no edema GI: +BS, soft, non-tender : no cardona MSK/Neuro: moves all extremities, CN intact grossly, no facial droop Psych: alert to person/place/year but not time/events, pleasant and cooperative Results & Data Results & Data ([facility]) Vital Signs (Past 12 Hours) Vital Signs Temp Pulse Pulse Pulse Resp BP Pulse Ox 08/16/21 07:32 37.0 C 73 16 126/64 97 08/16/21 07:21 78 20 91 08/15/21 23:00 36.9 C 73 81 21 132/68 95 08/15/21 21:00 75 20 150/75 H 94 08/15/21 20:00 72 24 144/75 H Laboratory Results 08/16/21 08/16/21 08/16/21 Range/Units 08:11 08:11 08:11 WBC (4.8-10.8) K/uL RBC (4.7-6.1) M/uL Hgb (14.0-18.0) g/dL Hct (42-52) % MCV (80-100) fL MCH (25-34) pg MCHC (32-36) g/dL RDW Std Deviation (36.4-46.3) fL RDW Coeff of Syl (11.5-14.5) % Plt Count (130-400) K/uL MPV (7.4-10.4) fL Immature Gran % (Auto) % Neut % (Auto) % Lymph % (Auto) % [place] % (Auto) % Eos % (Auto) % Baso % (Auto) % Neut # (Auto) (1.4-6.5) K/uL Lymph # (Auto) (1.2-3.4) K/uL [place] # (Auto) (0.11-0.59) K/uL Eos # (Auto) (0-0.5) K/uL Baso # (Auto) (0-0.2) K/uL Immature Gran # (Auto) (0.00-0.02) K/uL PT (9.0-12.0) Seconds INR (0.9-1.1) APTT (21.0-31.0) Seconds PTT Ratio VBG pH (7.36-7.41) VBG pCO2 (38-50) mmHg VBG pO2 mmHg VBG HCO3 mmol/L VBG O2 Saturation % VBG Base Excess mEq/L Barometric Pressure mm/Hg Sodium (136-145) mmol/L Potassium (3.5-5.1) mmol/L Chloride (98-107) mmol/L Carbon Dioxide (21-32) mmol/L Anion Gap (3-11) BUN (6-23) mg/dl Creatinine (0.6-1.4) mg/dl Est Cr Clr Drug Dosing ml/min Est GFR ( Amer) ml/min Est GFR (Non-Af Amer) ml/min BUN/Creatinine Ratio (10-20) Glucose (70-99(Fasting)) mg/dl Calcium (8.5-10.1) mg/dl Magnesium 2.0 (1.7-2.4) mg/dl Total Bilirubin (0.2-1.0) mg/dl AST (13-39) U/L ALT (7-52) U/L Alkaline Phosphatase (34-104) U/L Total Protein (6.0-8.3) gm/dl Albumin (3.4-5.0) gm/dl Globulin (2.5-4.0) gm/dl Albumin/Globulin Ratio (0.9-2) Vitamin B1 Pending Vitamin B12 (180-914) pg/ml TSH 3.127 (0.300-4.500) uIu/ml SARS-CoV-2, RNA, NAAT (NEGATIVE) 08/16/21 08/16/21 08/16/21 Range/Units 08:11 06:27 06:27 WBC 6.79 (4.8-10.8) K/uL RBC 4.01 L (4.7-6.1) M/uL Hgb 12.0 L (14.0-18.0) g/dL Hct 38.5 L (42-52) % MCV 96.0 (80-100) fL MCH 29.9 (25-34) pg MCHC 31.2 L (32-36) g/dL RDW Std Deviation 50.9 H (36.4-46.3) fL RDW Coeff of Syl 14.4 (11.5-14.5) % Plt Count 244 (130-400) K/uL MPV 11.2 H (7.4-10.4) fL Immature Gran % (Auto) 0.1 % Neut % (Auto) 72.4 % Lymph % (Auto) 14.4 % [place] % (Auto) 11.2 % Eos % (Auto) 1.3 % Baso % (Auto) 0.6 % Neut # (Auto) 4.91 (1.4-6.5) K/uL Lymph # (Auto) 0.98 L (1.2-3.4) K/uL [place] # (Auto) 0.76 H (0.11-0.59) K/uL Eos # (Auto) 0.09 (0-0.5) K/uL Baso # (Auto) 0.04 (0-0.2) K/uL Immature Gran # (Auto) 0.01 (0.00-0.02) K/uL PT (9.0-12.0) Seconds INR (0.9-1.1) APTT (21.0-31.0) Seconds PTT Ratio VBG pH (7.36-7.41) VBG pCO2 (38-50) mmHg VBG pO2 mmHg VBG HCO3 mmol/L VBG O2 Saturation % VBG Base Excess mEq/L Barometric Pressure mm/Hg Sodium 144 (136-145) mmol/L Potassium 3.7 (3.5-5.1) mmol/L Chloride 104 (98-107) mmol/L Carbon Dioxide 35 H (21-32) mmol/L Anion Gap 5 (3-11) BUN 26 H (6-23) mg/dl Creatinine 0.80 (0.6-1.4) mg/dl Est Cr Clr Drug Dosing 49.0 ml/min Est GFR ( Amer) 92.4 ml/min Est GFR (Non-Af Amer) 79.8 ml/min BUN/Creatinine Ratio 32.5 H (10-20) Glucose 108 H (70-99(Fasting)) mg/dl Calcium 9.5 (8.5-10.1) mg/dl Magnesium (1.7-2.4) mg/dl Total Bilirubin (0.2-1.0) mg/dl AST (13-39) U/L ALT (7-52) U/L Alkaline Phosphatase (34-104) U/L Total Protein (6.0-8.3) gm/dl Albumin (3.4-5.0) gm/dl Globulin (2.5-4.0) gm/dl Albumin/Globulin Ratio (0.9-2) Vitamin B1 Vitamin B12 885 (180-914) pg/ml TSH (0.300-4.500) uIu/ml SARS-CoV-2, RNA, NAAT (NEGATIVE) 08/15/21 08/15/21 08/15/21 Range/Units 19:13 19:13 19:13 WBC (4.8-10.8) K/uL RBC (4.7-6.1) M/uL Hgb (14.0-18.0) g/dL Hct (42-52) % MCV (80-100) fL MCH (25-34) pg MCHC (32-36) g/dL RDW Std Deviation (36.4-46.3) fL RDW Coeff of Syl (11.5-14.5) % Plt Count (130-400) K/uL MPV (7.4-10.4) fL Immature Gran % (Auto) % Neut % (Auto) % Lymph % (Auto) % [place] % (Auto) % Eos % (Auto) % Baso % (Auto) % Neut # (Auto) (1.4-6.5) K/uL Lymph # (Auto) (1.2-3.4) K/uL [place] # (Auto) (0.11-0.59) K/uL Eos # (Auto) (0-0.5) K/uL Baso # (Auto) (0-0.2) K/uL Immature Gran # (Auto) (0.00-0.02) K/uL PT 11.2 (9.0-12.0) Seconds INR 1.1 (0.9-1.1) APTT 26.2 (21.0-31.0) Seconds PTT Ratio 1.0 VBG pH 7.35 L (7.36-7.41) VBG pCO2 65 H (38-50) mmHg VBG pO2 22 mmHg VBG HCO3 35 mmol/L VBG O2 Saturation < 60.0 % VBG Base Excess 7.0 mEq/L Barometric Pressure 732.7 mm/Hg Sodium 143 (136-145) mmol/L Potassium 3.6 (3.5-5.1) mmol/L Chloride 103 (98-107) mmol/L Carbon Dioxide 36 H (21-32) mmol/L Anion Gap 4 (3-11) BUN 26 H (6-23) mg/dl Creatinine 1.03 (0.6-1.4) mg/dl Est Cr Clr Drug Dosing 38.6 ml/min Est GFR ( Amer) 74.8 ml/min Est GFR (Non-Af Amer) 64.6 ml/min BUN/Creatinine Ratio 25.2 H (10-20) Glucose 175 H (70-99(Fasting)) mg/dl Calcium 9.4 (8.5-10.1) mg/dl Magnesium (1.7-2.4) mg/dl Total Bilirubin 0.5 (0.2-1.0) mg/dl AST 27 (13-39) U/L ALT 33 (7-52) U/L Alkaline Phosphatase 85 (34-104) U/L Total Protein 6.4 (6.0-8.3) gm/dl Albumin 3.8 (3.4-5.0) gm/dl Globulin 2.6 (2.5-4.0) gm/dl Albumin/Globulin Ratio 1.5 (0.9-2) Vitamin B1 Vitamin B12 (180-914) pg/ml TSH (0.300-4.500) uIu/ml SARS-CoV-2, RNA, NAAT (NEGATIVE) 08/15/21 08/15/21 Range/Units 19:13 19:12 WBC 7.94 (4.8-10.8) K/uL RBC 4.12 L (4.7-6.1) M/uL Hgb 12.1 L (14.0-18.0) g/dL Hct 38.7 L (42-52) % MCV 93.9 (80-100) fL MCH 29.4 (25-34) pg MCHC 31.3 L (32-36) g/dL RDW Std Deviation 50.3 H (36.4-46.3) fL RDW Coeff of Syl 14.7 H (11.5-14.5) % Plt Count 234 (130-400) K/uL MPV 11.2 H (7.4-10.4) fL Immature Gran % (Auto) 0.1 % Neut % (Auto) 78.9 % Lymph % (Auto) 11.5 % [place] % (Auto) 7.7 % Eos % (Auto) 1.3 % Baso % (Auto) 0.5 % Neut # (Auto) 6.27 (1.4-6.5) K/uL Lymph # (Auto) 0.91 L (1.2-3.4) K/uL [place] # (Auto) 0.61 H (0.11-0.59) K/uL Eos # (Auto) 0.10 (0-0.5) K/uL Baso # (Auto) 0.04 (0-0.2) K/uL Immature Gran # (Auto) 0.01 (0.00-0.02) K/uL PT (9.0-12.0) Seconds INR (0.9-1.1) APTT (21.0-31.0) Seconds PTT Ratio VBG pH (7.36-7.41) VBG pCO2 (38-50) mmHg VBG pO2 mmHg VBG HCO3 mmol/L VBG O2 Saturation % VBG Base Excess mEq/L Barometric Pressure mm/Hg Sodium (136-145) mmol/L Potassium (3.5-5.1) mmol/L Chloride (98-107) mmol/L Carbon Dioxide (21-32) mmol/L Anion Gap (3-11) BUN (6-23) mg/dl Creatinine (0.6-1.4) mg/dl Est Cr Clr Drug Dosing ml/min Est GFR ( Amer) ml/min Est GFR (Non-Af Amer) ml/min BUN/Creatinine Ratio (10-20) Glucose (70-99(Fasting)) mg/dl Calcium (8.5-10.1) mg/dl Magnesium (1.7-2.4) mg/dl Total Bilirubin (0.2-1.0) mg/dl AST (13-39) U/L ALT (7-52) U/L Alkaline Phosphatase (34-104) U/L Total Protein (6.0-8.3) gm/dl Albumin (3.4-5.0) gm/dl Globulin (2.5-4.0) gm/dl Albumin/Globulin Ratio (0.9-2) Vitamin B1 Vitamin B12 (180-914) pg/ml TSH (0.300-4.500) uIu/ml SARS-CoV-2, RNA, NAAT NEGATIVE (NEGATIVE) Diagnostic Findings Chest X-Ray 08/15/21 18:44 XR chest 1V portable CLINICAL HISTORY: Dyspnea COMPARISON STUDY: Chest CT April 23, 2018. Chest radiograph May 22, 2021. FINDINGS: Lung hyperexpansion is again noted with severe upper lobe predominant emphysema. No pneumothorax or pleural effusion is noted. No consolidation is identified. A calcified left midlung granuloma is again noted. This is benign. Cardiac size is normal. Mediastinal contours are normal. The appearance of the chest is unchanged. IMPRESSION: 1. No acute cardiopulmonary findings. 2. Severe emphysema. ACT 112: Negative or not required by law. Electronically signed by: Law Galan M.D. 08/15/2021 7:25 PM PG Care Time/CCT Total # of Minutes Spent Total Time Spent with Patient: Total time spent is greater than 50% in coordination of care (as documented) at patient's floor/unit and/or counseling patient: Coding Level of Care Code 05582 Subseq Obs Care Lvl 3 Diagnoses Chronic obstructive pulmonary disease J44.9 Failure to thrive in adult R62.7 Urinary incontinence R32 BPH loc w urin obs/LUTS N40.1 Dementia F03.90 Mood disorder F39 Severe protein-calorie malnutrition E43 GERD (gastroesophageal reflux disease) K21.9 Hypertension I10 Hypertension type: unspecified History of hyperparathyroidism Z86.39 (1) Hypertension Hypertension type: unspecified Qualified Code(s): I10 - Essential (primary) hypertension
[2021-08-16] MEDS: DOCUSATE SODIUM 100 MG CAP PO SCH ×2 (08:30→21:16)
[2021-08-16] MEDS: MIRTAZAPINE TAB 15 MG TAB PO SCH (08:31)
[2021-08-16] MEDS: FINASTERIDE 5 MG TAB PO SCH (08:31)
[2021-08-16] MEDS: HEPARIN SOD 5,000 UNIT/0.5 ML VIAL SQ SCH ×2 (08:31→21:17)
[2021-08-16] MEDS: PANTOprazole 40 MG TAB PO SCH ×2 (08:31→21:17)
[2021-08-16] MEDS: FLUTICASONE/VILANTEROL 100/25MCG 14 PUFFS/INHALER INH SCH (08:31)
[2021-08-16 08:39] LABS: BUN Creatinine Ratio 32.5 (10-20); Calcium 9.5 mg/dl (8.5-10.1); Est GFR (African American) 92.4 ml/min; Est GFR (Non-African American) 79.8 ml/min; Potassium 3.7 mmol/L (3.5-5.1)
[2021-08-16] MEDS ORDERED: IPRATROPIUM BROMIDE/ALBUTEROL respimat INH INH SCH (09:00)
[2021-08-16] MEDS ORDERED: amLODIPine BESYLATE 5 MG TAB PO SCH ×2 (21:00)
[2021-08-16] MEDS: amLODIPine BESYLATE 5 MG TAB PO SCH (21:17)
[2021-08-16] MEDS: TAMSULOSIN HCL 0.4 MG CAP PO SCH (21:17)
[2021-08-16] MEDS: guaiFENesin 600 MG TABCR PO SCH (21:17)
[2021-08-17] MEDS: Ipratropium HFA Inhaler (Combivent Respimat P&T Subs) INH SCH ×4 (07:16→19:15)
[2021-08-17] MEDS: Albuterol HFA 8 GM Inhaler (Combivent Respimat P&T Subs) INH SCH ×4 (07:16→19:14)
--- NOTE | 2021-08-17 07:54 | Hospitalist Progress Note ---
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 Followed by pulm, recently seen, talks of palliative but deferred to PCP. At that time Group D COPD Typically had been using 2-2.5L NC at home, currently up to 4L at rest. CXR negative, severe emphysema. Mild elevation CO2 on admission Titrate O2 to maintain sats --> has been 96%-97% (occassional 91%) on 4L --> asked RN to wean given severe COPD to maintain sats 88-90%. --> Weaned to 2L this afternoon and actually 96%. Suspect could be weaned further to prevent CO2 retention as slightly elevated from day prior from being on 4L continuously Flutter valve/vest therapy Continue home inhalers, duonebs prn Added and continue mucinex BID as takes at home Speech saw -- able to tolerate diet without issue. No further follow-up unless witnessed dysphagia or aspiration -- eating 100%/75% of meals today PT/OT consulted Per grandson/saxatlvr-id-jch (whom patient lives with), patient at [facility] and they are becoming more unable to take care of him and consider placement at [facility] Left voicemail for grandson for update today. CM following (2) Failure to thrive in adult: Plan: This is family's biggest concern with him returning to home as they are reportedly unable to get him to take his medication and/or eat PT/OT/CM consulted Speech saw -- has also been tolerating diet well while here. Did get started on remeron last admission and is currently on 15mg. Reported by family that he does not allow home [place] assistance in to help him but has been agreeable to care provided here and not having any issues. Eating/drinking well and continuing Remeron at 15mg for now. Can increase outpt as needed for mood to30mg (3) Urinary incontinence: Plan: secondary to dementia WBC wnl and has been afebrile Prior urine cx + may 2021 --> monitor although denied urinary symptoms does have hx dementia Urine cx ordered but has been incontinent (4) BPH loc w urin obs/LUTS: Plan: Continue with Tamsulosin (5) Dementia: Plan: Continue mirtazapine- unsure of who is following this chronically - previously started with psych evaluation in 06/07 for depression secondary to adjustment disorder with depressed mood --> consider increasing to 30mg HS outpatient if needed Also checked B12/TSH for completeness --> B12 885, TSH 3.127 wnl Given 200mg IV thiamine x 1 as well, added to labs for completeness however did review and was checked last admission and was normal Appears at baseline and actually quite alert/oriented compared to prior reports (6) Mood disorder: Plan: Previously started on Mirtazapine and if ineffective possible addition of sertraline but could consider increasing remeron as mentioned (7) Severe protein-calorie malnutrition: Plan: Nutrition consultation- evaluate for supplementation with shakes (8) GERD (gastroesophageal reflux disease): Plan: Continue with PPI BID., Mag 2.0 (9) Hypertension: Plan: Continue amlodipine, decreased to 10mg daily as ordered 15mg on admission BP 117/62 (10) History of hyperparathyroidism: Plan: With history of parathyroid surgery in 2018 secondary to adenomas. - previously followed with Endocrinology- had calcitriol discontinued and then re-instituted in 07/04 - was placed on calcium supplementation for bone health - his calcium in 9.5 on draws today- with reports he is not taking medications at home- has not had calcium check since may- prior to this was getting them drawn monthly - may consider discontinuing for less medications or if palliative care discuss ions progress Resumed calcitriol DVT Prophylaxis --Heparin SQ Plan: continued inpatient stay PT/OT consulted -- likely will need placement. hopefully [facility] when bed available change to full admit Admission and Anticipated Discharge Date Admission Date: August 15, 2021 Supervising Physician Co-Signing Physician Notes JUANIS Supervision Note: I did not personally see or examine the patient today, but I verified all king points of JUANIS Ricardo's assessment and plan with the following exceptions/additions: None Subjective Patient evaluated this morning. Doing well. Sitting up in chair at bedside. No distress. Discussed updating son/looking for placement at this time. He notes this is his grandson he has lived with. Him and had two daughters. He knows it's August, in the hospital. Pleasant and eating well, good appetite. On 4L and asking RN to titrate down given severe emphysema. Denies any fever/chills, chest pain, shortness of breath. Occasional moist cough that he states is a "tickle" and unchanged from baseline. Does not expectorate sputum but endorses he consistently uses the flutter valve and when picked up to encourage and states he has several at home and he does use them. Review of Systems Review of Systems: All systems reviewed & are unremarkable except as noted in HPI & below Physical Exam Physical Exam: General: awake, alert, WD but malnoursished elderly gentleman sitting up in chair looking out window, NAD HEENT: head normocephalic, atraumatic, mm improved, pupils equal and reactive Resp: able to talk in complete sentences, no accessory muscle use. CTAB, no wheezing, diminished throughout, 96% on 4L NC (baseline 2-2.5L) CV: RRR, no m/r/g, no edema GI: +BS, soft, non-tender : no cardona MSK/Neuro: moves all extremities, CN intact grossly, no facial droop Psych: alert to person/place/year/month, knows in hospital but not the name of the hospital, pleasant and cooperative Results & Data Results & Data ([facility]) Vital Signs (Past 12 Hours) Vital Signs Temp Pulse Resp BP Pulse Ox 08/17/21 07:30 36.9 C 69 16 117/62 95 08/17/21 07:19 80 18 91 08/16/21 21:06 36.9 C 79 14 125/60 100 Laboratory Results 08/17/21 08/17/21 Range/Units 07:40 07:40 WBC 6.49 (4.8-10.8) K/uL RBC 3.69 L (4.7-6.1) M/uL Hgb 11.3 L (14.0-18.0) g/dL Hct 35.2 L (42-52) % MCV 95.4 (80-100) fL MCH 30.6 (25-34) pg MCHC 32.1 (32-36) g/dL RDW Std Deviation 50.6 H (36.4-46.3) fL RDW Coeff of Syl 14.4 (11.5-14.5) % Plt Count 230 (130-400) K/uL MPV 11.0 H (7.4-10.4) fL Immature Gran % (Auto) 0.2 % Neut % (Auto) 71.8 % Lymph % (Auto) 9.2 % [place] % (Auto) 15.4 % Eos % (Auto) 2.6 % Baso % (Auto) 0.8 % Neut # (Auto) 4.66 (1.4-6.5) K/uL Lymph # (Auto) 0.60 L (1.2-3.4) K/uL [place] # (Auto) 1.00 H (0.11-0.59) K/uL Eos # (Auto) 0.17 (0-0.5) K/uL Baso # (Auto) 0.05 (0-0.2) K/uL Immature Gran # (Auto) 0.01 (0.00-0.02) K/uL Sodium 144 (136-145) mmol/L Potassium 3.8 (3.5-5.1) mmol/L Chloride 104 (98-107) mmol/L Carbon Dioxide 35 H (21-32) mmol/L Anion Gap 5 (3-11) BUN 31 H (6-23) mg/dl Creatinine 0.82 (0.6-1.4) mg/dl Est Cr Clr Drug Dosing 47.8 ml/min Est GFR ( Amer) 91.5 ml/min Est GFR (Non-Af Amer) 79.0 ml/min BUN/Creatinine Ratio 37.8 H (10-20) Glucose 121 H (70-99(Fasting)) mg/dl Calcium 9.3 (8.5-10.1) mg/dl PG Care Time/CCT Total # of Minutes Spent Total Time Spent with Patient: Total time spent is greater than 50% in coordination of care (as documented) at patient's floor/unit and/or counseling patient: Coding Level of Care Code 47142 Subseq Hosp Care Lvl 2 Diagnoses Chronic obstructive pulmonary disease J44.9 Failure to thrive in adult R62.7 Urinary incontinence R32 BPH loc w urin obs/LUTS N40.1 Dementia F03.90 Mood disorder F39 Severe protein-calorie malnutrition E43 GERD (gastroesophageal reflux disease) K21.9 Hypertension I10 Hypertension type: unspecified History of hyperparathyroidism Z86.39 (1) Hypertension Hypertension type: unspecified Qualified Code(s): I10 - Essential (primary) hypertension
[2021-08-17 08:14] LABS: Basophils # (auto) 0.05 K/uL (0-0.2); Basophils % (auto) 0.8 %; Eosinophils # (auto) 0.17 K/uL (0-0.5); Eosinophils % (auto) 2.6 %; Hematocrit (blood only) 35.2 % (42-52); Hemoglobin 11.3 g/dL (14.0-18.0); Immature Granulocytes # (auto) 0.01 K/uL (0.00-0.02); Immature Granulocytes % (auto) 0.2 %; Lymphocytes % (auto) 9.2 %; Mean Corpuscular Hemoglobin 30.6 pg (25-34); Mean Corpuscular Hgb Conc 32.1 g/dL (32-36); Mean Corpuscular Volume 95.4 fL (80-100); Monocytes % (auto) 15.4 %; Neutrophils # (auto) 4.66 K/uL (1.4-6.5); Neutrophils % (auto) 71.8 %; Platelet Count 230 K/uL (130-400); RDW Coefficient of Variation 14.4 % (11.5-14.5); RDW Standard Deviation 50.6 fL (36.4-46.3); Red Blood Count 3.69 M/uL (4.7-6.1); White Blood Count 6.49 K/uL (4.8-10.8)
[2021-08-17 08:42] LABS: BUN Creatinine Ratio 37.8 (10-20); Calcium 9.3 mg/dl (8.5-10.1); Creatinine Clr Calc Pharmacy 47.8 ml/min; Est GFR (African American) 91.5 ml/min; Potassium 3.8 mmol/L (3.5-5.1)
[2021-08-17] MEDS: FLUTICASONE/VILANTEROL 100/25MCG 14 PUFFS/INHALER INH SCH (08:56)
[2021-08-17] MEDS: guaiFENesin 600 MG TABCR PO SCH ×2 (08:57→20:29)
[2021-08-17] MEDS: PANTOprazole 40 MG TAB PO SCH ×2 (08:57→20:29)
[2021-08-17] MEDS: FINASTERIDE 5 MG TAB PO SCH (08:57)
[2021-08-17] MEDS: CALCITRIOL 0.25 MCG CAPSULE PO SCH (08:57)
[2021-08-17] MEDS: HEPARIN SOD 5,000 UNIT/0.5 ML VIAL SQ SCH ×2 (08:57→20:29)
[2021-08-17] MEDS: MIRTAZAPINE TAB 15 MG TAB PO SCH (08:57)
[2021-08-17] MEDS: DOCUSATE SODIUM 100 MG CAP PO SCH ×2 (08:57→20:29)
--- NOTE | 2021-08-17 15:24 | Electrocardiogram Report ---
Test Reason : Blood Pressure : / mmHG Vent. Rate : 072 BPM Atrial Rate : 072 BPM P-R Int : 146 ms QRS Dur : 094 ms QT Int : 372 ms P-R-T Axes : 083 -56 087 degrees QTc Int : 407 ms Normal sinus rhythm Left axis deviation Incomplete right bundle branch block Septal infarct , age undetermined Abnormal ECG When compared with ECG of 22-MAY-2021 10:57, No significant change Confirmed by Foreign Jackson ([id number]) on 08/17/2021 3:24:09 PM Referred By: REFERRED SELF Confirmed By:Foreign Jackson
[2021-08-17] MEDS: TAMSULOSIN HCL 0.4 MG CAP PO SCH (20:29)
[2021-08-17] MEDS: amLODIPine BESYLATE 5 MG TAB PO SCH (20:29)
[2021-08-18 06:10] LABS: Basophils # (auto) 0.06 K/uL (0-0.2); Eosinophils # (auto) 0.42 K/uL (0-0.5); Eosinophils % (auto) 6.9 %; Hematocrit (blood only) 33.4 % (42-52); Hemoglobin 10.6 g/dL (14.0-18.0); Immature Granulocytes # (auto) 0.02 K/uL (0.00-0.02); Immature Granulocytes % (auto) 0.3 %; Lymphocytes # (auto) 0.65 K/uL (1.2-3.4); Lymphocytes % (auto) 10.6 %; Mean Corpuscular Hemoglobin 29.8 pg (25-34); Mean Corpuscular Hgb Conc 31.7 g/dL (32-36); Mean Corpuscular Volume 93.8 fL (80-100); Mean Platelet Volume 10.6 fL (7.4-10.4); Monocytes # (auto) 1.22 K/uL (0.11-0.59); Monocytes % (auto) 19.9 %; Neutrophils # (auto) 3.75 K/uL (1.4-6.5); Neutrophils % (auto) 61.3 %; Platelet Count 252 K/uL (130-400); RDW Coefficient of Variation 14.3 % (11.5-14.5); RDW Standard Deviation 49.2 fL (36.4-46.3); Red Blood Count 3.56 M/uL (4.7-6.1); White Blood Count 6.12 K/uL (4.8-10.8)
[2021-08-18 06:47] LABS: Creatinine Clr Calc Pharmacy 42.6 ml/min; Est GFR (African American) 85.8 ml/min; Potassium 4.3 mmol/L (3.5-5.1)
[2021-08-18] MEDS: Ipratropium HFA Inhaler (Combivent Respimat P&T Subs) INH SCH ×4 (07:11→19:27)
[2021-08-18] MEDS: Albuterol HFA 8 GM Inhaler (Combivent Respimat P&T Subs) INH SCH ×4 (07:11→19:27)
[2021-08-18] MEDS: DOCUSATE SODIUM 100 MG CAP PO SCH ×2 (08:15→20:32)
[2021-08-18] MEDS: HEPARIN SOD 5,000 UNIT/0.5 ML VIAL SQ SCH ×2 (08:15→20:33)
[2021-08-18] MEDS: guaiFENesin 600 MG TABCR PO SCH ×2 (08:15→20:33)
[2021-08-18] MEDS: CALCITRIOL 0.25 MCG CAPSULE PO SCH (08:16)
[2021-08-18] MEDS: PANTOprazole 40 MG TAB PO SCH ×2 (08:16→20:33)
[2021-08-18] MEDS: FLUTICASONE/VILANTEROL 100/25MCG 14 PUFFS/INHALER INH SCH (08:16)
[2021-08-18] MEDS: MIRTAZAPINE TAB 15 MG TAB PO SCH (08:16)
[2021-08-18] MEDS: FINASTERIDE 5 MG TAB PO SCH (08:16)
--- NOTE | 2021-08-18 08:47 | Hospitalist Progress Note ---
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 Followed by pulm, recently seen, talks of palliative but deferred to PCP. At that time Group D COPD Typically had been using 2-2.5L NC at home, currently up to 4L at rest. CXR negative, severe emphysema. Mild elevation CO2 on admission Elevation in CO2 likely from overuse of oxygen, and likely need to maintain sats 88% or greater Had been on 4L with SpO2 up to 97%, titrated to 2L this morning and asked RN to titrate/trial. --> Has been on room air with Spo2 ~90% Asked to ambulate/pulse ox this afternoon to see how he does, likely does need with ambulation but suspect at rest likely not required CO2 improved compared to admission with titration Continue flutter valve, vibration vest, mucinex Speech cleared -- has been tolerating diet without issue PT/OT consulted -- possible rehab pending vs family to take home if not willing to pay out of pocket. Patient has been calm/cooperative and eating most of meals. ?wonder about availability of meals provided at home as family stated wouldn't eat much Left voicemail for grandson, no return call. Patient's at [facility] and they would like patient there as well, again may need to consider paying out of pocket if not have skilled need CM following (2) Failure to thrive in adult: Plan: This is family's biggest concern with him returning to home as they are reportedly unable to get him to take his medication and/or eat PT/OT/CM consulted Speech saw -- has also been tolerating diet well while here. Did get started on remeron last admission and is currently on 15mg. Reported by family that he does not allow home [place] assistance in to help him but has been agreeable to care provided here and not having any issues. Eating/drinking well and continuing Remeron at 15mg for now. Can increase outpt as needed for mood to30mg (3) Urinary incontinence: Plan: secondary to dementia WBC wnl and has been afebrile Prior urine cx + may 2021 --> monitor although denied urinary symptoms does have hx dementia Urine cx ordered but has been incontinent, monitor (4) BPH loc w urin obs/LUTS: Plan: Continue with Tamsulosin (5) Dementia: Plan: Continue mirtazapine- unsure of who is following this chronically - previously started with psych evaluation in 06/07 for depression secondary to adjustment disorder with depressed mood --> consider increasing to 30mg HS outpatient if needed Also checked B12/TSH for completeness --> B12 885, TSH 3.127 wnl Given 200mg IV thiamine x 1 as well, added to labs for completeness however did review and was checked last admission and was normal and will hold off further supplementation Appears at baseline and actually quite alert/oriented compared to prior reports (6) Mood disorder: Plan: Previously started on Mirtazapine and if ineffective possible addition of sertraline but could consider increasing remeron as mentioned (7) Severe protein-calorie malnutrition: Plan: Nutrition consultation- evaluate for supplementation with shakes (8) GERD (gastroesophageal reflux disease): Plan: Continue with PPI BID., Mag 2.0 (9) Hypertension: Plan: Continue amlodipine, decreased to 10mg daily as ordered 15mg on admission BP 141/67 (10) History of hyperparathyroidism: Plan: With history of parathyroid surgery in 2018 secondary to adenomas. - previously followed with Endocrinology- had calcitriol discontinued and then re-instituted in 07/04 - was placed on calcium supplementation for bone health Calcium stable on calcitriol, continued DVT Prophylaxis --Heparin SQ Plan: continued inpatient stay PT/OT consulted -- SNF rec CM following Admission and Anticipated Discharge Date Admission Date: August 17, 2021 Supervising Physician Co-Signing Physician Notes JUANIS Supervision Note: I did not personally see or examine the patient today, but I verified all king points of JAUNIS Ricardo's assessment and plan with the following exceptions/additions: None Subjective Patient evaluated this morning. Doing well. Eating/drinking, bowels moving. Ostomy came loose this morning, pasty stool noted and asked RN to change ostomy. Ordered ostomy box from SP. No fever/chills, chest pain, shortness of breath, abdominal pain, nausea or vomiting. Review of Systems Review of Systems: All systems reviewed & are unremarkable except as noted in HPI & below Physical Exam Physical Exam: General: awake, alert, WD but malnourished elderly gentleman, sitting in bed, NAD HEENT: head normocephalic, atraumatic, mm improved, pupils equal and reactive Resp: able to talk in complete sentences, no accessory muscle use. CTAB, no wheezing,94% on 2L (asked to wean) CV: RRR, no m/r/g, no edema GI: +BS, soft, non-tender, ostomy loosened with leaking pasty stool (Rn to change) : no cardona MSK/Neuro: moves all extremities, CN intact grossly, no facial droop Psych: alert to person/place/year/month, knows in hospital but not the name of the hospital, pleasant and cooperative Results & Data Results & Data ([facility]) Vital Signs (Past 12 Hours) Vital Signs Temp Pulse Resp BP BP Pulse Ox 08/18/21 07:15 89 20 96 08/18/21 07:02 36.9 C 76 16 142/73 H 97 08/17/21 22:28 37.0 C 81 18 134/67 96 Laboratory Results 08/18/21 08/18/21 Range/Units 05:50 05:50 WBC 6.12 (4.8-10.8) K/uL RBC 3.56 L (4.7-6.1) M/uL Hgb 10.6 L (14.0-18.0) g/dL Hct 33.4 L (42-52) % MCV 93.8 (80-100) fL MCH 29.8 (25-34) pg MCHC 31.7 L (32-36) g/dL RDW Std Deviation 49.2 H (36.4-46.3) fL RDW Coeff of Syl 14.3 (11.5-14.5) % Plt Count 252 (130-400) K/uL MPV 10.6 H (7.4-10.4) fL Immature Gran % (Auto) 0.3 % Neut % (Auto) 61.3 % Lymph % (Auto) 10.6 % [place] % (Auto) 19.9 % Eos % (Auto) 6.9 % Baso % (Auto) 1.0 % Neut # (Auto) 3.75 (1.4-6.5) K/uL Lymph # (Auto) 0.65 L (1.2-3.4) K/uL [place] # (Auto) 1.22 H (0.11-0.59) K/uL Eos # (Auto) 0.42 (0-0.5) K/uL Baso # (Auto) 0.06 (0-0.2) K/uL Immature Gran # (Auto) 0.02 (0.00-0.02) K/uL Sodium 142 (136-145) mmol/L Potassium 4.3 (3.5-5.1) mmol/L Chloride 105 (98-107) mmol/L Carbon Dioxide 34 H (21-32) mmol/L Anion Gap 3 (3-11) BUN 34 H (6-23) mg/dl Creatinine 0.92 (0.6-1.4) mg/dl Est Cr Clr Drug Dosing 42.6 ml/min Est GFR ( Amer) 85.8 ml/min Est GFR (Non-Af Amer) 74.0 ml/min BUN/Creatinine Ratio 37.0 H (10-20) Glucose 115 H (70-99(Fasting)) mg/dl Calcium 9.0 (8.5-10.1) mg/dl PG Care Time/CCT Total # of Minutes Spent Total Time Spent with Patient: Total time spent is greater than 50% in coordination of care (as documented) at patient's floor/unit and/or counseling patient: Coding Level of Care Code 43102 Subseq Hosp Care Lvl 2 Diagnoses Chronic obstructive pulmonary disease J44.9 Failure to thrive in adult R62.7 Urinary incontinence R32 BPH loc w urin obs/LUTS N40.1 Dementia F03.90 Mood disorder F39 Severe protein-calorie malnutrition E43 GERD (gastroesophageal reflux disease) K21.9 Hypertension I10 Hypertension type: unspecified History of hyperparathyroidism Z86.39 (1) Hypertension Hypertension type: unspecified Qualified Code(s): I10 - Essential (primary) hypertension
[2021-08-18 10:04] LABS: Ferritin 482.7 ng/ml (8-388)
[2021-08-18 12:46] LABS: Appearance Urine Clear (Clear); Bacteria Urine Automated Negative (Negative); Bilirubin Urine Negative (Negative); Blood Urine Negative (Negative); Color Urine Yellow; Glucose Urine UA Negative (Negative); Ketones Urine Negative (Negative); Leukocyte Esterase Urine 1+ (Negative); Nitrite Urine Negative (Negative); Protein Urine Negative (Negative); RBC Urine Automated 0-4 /hpf (0-4); Specific Gravity Urine 1.021 (1.000-1.030); Urobilinogen Urine Negative (Negative)
[2021-08-18] MEDS: TAMSULOSIN HCL 0.4 MG CAP PO SCH (20:32)
[2021-08-18] MEDS: amLODIPine BESYLATE 5 MG TAB PO SCH (20:32)
[2021-08-19] MEDS: Ipratropium HFA Inhaler (Combivent Respimat P&T Subs) INH SCH ×4 (07:38→19:39)
[2021-08-19] MEDS: Albuterol HFA 8 GM Inhaler (Combivent Respimat P&T Subs) INH SCH ×4 (07:39→19:40)
[2021-08-19 08:11] LABS: BUN Creatinine Ratio 27.8 (10-20); Calcium 9.1 mg/dl (8.5-10.1); Creatinine Clr Calc Pharmacy 49.6 ml/min; Est GFR (African American) 92.9 ml/min; Est GFR (Non-African American) 80.2 ml/min; Potassium 3.9 mmol/L (3.5-5.1)
[2021-08-19] MEDS: guaiFENesin 600 MG TABCR PO SCH ×2 (08:41→21:19)
[2021-08-19] MEDS: DOCUSATE SODIUM 100 MG CAP PO SCH ×2 (08:41→21:21)
[2021-08-19] MEDS: CALCITRIOL 0.25 MCG CAPSULE PO SCH (08:41)
[2021-08-19] MEDS: PANTOprazole 40 MG TAB PO SCH ×2 (08:41→21:20)
[2021-08-19] MEDS: MIRTAZAPINE TAB 15 MG TAB PO SCH (08:42)
[2021-08-19] MEDS: FINASTERIDE 5 MG TAB PO SCH (08:42)
[2021-08-19] MEDS: HEPARIN SOD 5,000 UNIT/0.5 ML VIAL SQ SCH ×2 (08:42→21:20)
[2021-08-19] MEDS: FLUTICASONE/VILANTEROL 100/25MCG 14 PUFFS/INHALER INH SCH (08:43)
--- NOTE | 2021-08-19 13:25 | Hospitalist Progress Note ---
Date of Service August 19, 2021 Assessment & Plan (1) Failure to thrive in adult: Plan: This is family's biggest concern with him returning to home as they are reportedly unable to get him to take his medication and/or eat PT/OT/CM consulted Speech saw -- has also been tolerating diet well while here. Did get started on remeron last admission and is currently on 15mg. Reported by family that he does not allow home [place] assistance in to help him but has been agreeable to care provided here and not having any issues. Eating/drinking well and continuing Remeron at 15mg for now. 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 Followed by pulm, recently seen, talks of palliative but deferred to PCP. At that time Group D COPD Typically had been using 2-2.5L NC at home,was up to 4L at rest on arrival CXR negative, severe emphysema. Mild elevation CO2 on admission Elevation in CO2 likely from overuse of oxygen, and likely need to maintain sats 88% or greater Had been on 4L with SpO2 up to 97%, titrated to 2L now and stable --> Has been on room air with Spo2 ~90% Asked to ambulate/pulse ox this afternoon to see how he does, likely does need with ambulation but suspect at rest likely not required CO2 improved compared to admission with titration Continue flutter valve, vibration vest, mucinex Speech cleared -- has been tolerating diet without issue (3) Urinary incontinence: Plan: secondary to dementia WBC wnl and has been afebrile Prior urine cx + may 2021 --> monitor although denied urinary symptoms does have hx dementia Urine cx ordered but has been incontinent, monitor (4) BPH loc w urin obs/LUTS: Plan: Continue with Tamsulosin (5) Dementia: Plan: Continue mirtazapine- unsure of who is following this chronically - previously started with psych evaluation in 06/07 for depression secondary to adjustment disorder with depressed mood --> consider increasing to 30mg HS outpatient if needed Also checked B12/TSH --> B12 885, TSH 3.127 wnl Given 200mg IV thiamine x 1 as well, vitamin B1 level added to labs but was checked last admission and was normal-will hold off further supplementation Appears at baseline and actually quite alert/oriented compared to prior reports (6) Mood disorder: Plan: Previously started on Mirtazapine and if ineffective possible addition of sertraline but could consider increasing remeron as mentioned (7) Severe protein-calorie malnutrition: Plan: Nutrition consultation- evaluate for supplementation with shakes (8) GERD (gastroesophageal reflux disease): Plan: Continue with PPI BID., Mag 2.0 (9) Hypertension: Plan: Continue amlodipine, decreased to 10mg daily as ordered 15mg on admission BP 141/67 (10) History of hyperparathyroidism: Plan: With history of parathyroid surgery in 2018 secondary to adenomas. - previously followed with Endocrinology- had calcitriol discontinued and then re-instituted in 07/04 - was placed on calcium supplementation for bone health Calcium stable on calcitriol, continued DVT Prophylaxis --Heparin SQ Plan: Dispo-plan for dc to SNF at [facility] where his resides , plan for bed on Sunday but will need insurance auth Admission and Anticipated Discharge Date Admission Date: August 17, 2021 Subjective No complaints. Denies SOB. Is eating and drinking. Review of Systems Review of Systems: All systems reviewed & are unremarkable except as noted in HPI & below Physical Exam Constitutional: WD/WN, vitals as above Eyes: + anicteric sclerae Neck: trachea midline, no thyromegaly Respiratory: normal respiratory effort Auscultation: + rhonchi (bilateral); no crackles and no wheezes Cardiovascular: RRR, no murmur, no edema Chest (Breasts): Chest: normal inspection of chest Gastrointestinal (Abdomen): Inspection/Auscultation: normal bowel sounds; + abdomen abnormal to inspection (large ventral hernia reducible,ostomy bag full of stool) Percussion/Palpation: abdomen soft; abdomen nontender Musculoskeletal: Extremities: extremities normal to inspection; no cyanosis and no clubbing Skin: no rashes, warm and dry Neurologic: moves all extremities and awake; no focal motor deficits Psychiatric: Orientation: alert, oriented to person, oriented to place and cooperative Lymphatic: no lymphedema Results & Data Results & Data ([facility]) Vital Signs (Past 12 Hours) Vital Signs Temp Pulse Pulse Resp BP Pulse Ox 08/19/21 11:34 98 08/19/21 11:21 36.8 C 72 16 132/68 94 08/19/21 10:42 74 20 94 08/19/21 07:45 36.7 C 75 18 128/70 92 08/19/21 07:26 69 22 93 Laboratory Results 08/19/21 Range/Units 07:08 Sodium 142 (136-145) mmol/L Potassium 3.9 (3.5-5.1) mmol/L Chloride 103 (98-107) mmol/L Carbon Dioxide 35 H (21-32) mmol/L Anion Gap 4 (3-11) BUN 22 (6-23) mg/dl Creatinine 0.79 (0.6-1.4) mg/dl Est Cr Clr Drug Dosing 49.6 ml/min Est GFR ( Amer) 92.9 ml/min Est GFR (Non-Af Amer) 80.2 ml/min BUN/Creatinine Ratio 27.8 H (10-20) Glucose 99 (70-99(Fasting)) mg/dl Calcium 9.1 (8.5-10.1) mg/dl PG Care Time/CCT Total # of Minutes Spent Total Time Spent with Patient: Total time spent is greater than 50% in coordination of care (as documented) at patient's floor/unit and/or counseling patient: Coding Level of Care Code 96653 Subseq Hosp Care Lvl 2 Diagnoses Chronic obstructive pulmonary disease J44.9 Failure to thrive in adult R62.7 Urinary incontinence R32 BPH loc w urin obs/LUTS N40.1 Dementia F03.90 Mood disorder F39 Severe protein-calorie malnutrition E43 GERD (gastroesophageal reflux disease) K21.9 Hypertension I10 Hypertension type: unspecified History of hyperparathyroidism Z86.39 (1) Hypertension Hypertension type: unspecified Qualified Code(s): I10 - Essential (primary) hypertension
[2021-08-19] MEDS: amLODIPine BESYLATE 5 MG TAB PO SCH (21:18)
[2021-08-19] MEDS: TAMSULOSIN HCL 0.4 MG CAP PO SCH (21:19)
[2021-08-20] MEDS: Ipratropium HFA Inhaler (Combivent Respimat P&T Subs) INH SCH ×4 (07:19→20:09)
[2021-08-20] MEDS: Albuterol HFA 8 GM Inhaler (Combivent Respimat P&T Subs) INH SCH ×4 (07:20→20:08)
--- NOTE | 2021-08-20 07:57 | Hospitalist Progress Note ---
Date of Service August 20, 2021 Assessment & Plan (1) Failure to thrive in adult: Plan: This is family's biggest concern with him returning to home as they are reportedly unable to get him to take his medication and/or eat PT/OT/CM consulted Speech saw -- has also been tolerating diet well while here. Did get started on remeron last admission and is currently on 15mg. Reported by family that he does not allow home [place] assistance in to help him but has been agreeable to care provided here and not having any issues. Eating/drinking well and continuing Remeron at 15mg for now. 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 Followed by pulm, recently seen, talks of palliative but deferred to PCP. At that time Group D COPD Typically had been using 2-2.5L NC at home,was up to 4L at rest on arrival CXR negative, severe emphysema. Mild elevation CO2 on admission Elevation in CO2 likely from overuse of oxygen, and likely need to maintain sats 88% or greater Had been on 4L with SpO2 up to 97%, titrated to 2L now and stable --> Has been on room air with Spo2 ~90% --> Stable 93-94% on 2L, titrate to maintain 88% or greater CO2 improved compared to admission with titration Continue flutter valve, vibration vest, mucinex Speech cleared -- has been tolerating diet without issue Would ambulate to see needs w/ ambulation prior to discharge (3) Urinary incontinence: Plan: secondary to dementia WBC wnl and has been afebrile Prior urine cx + may 2021 --> monitor although denied urinary symptoms does have hx dementia Urine cx ordered but has been incontinent, monitor --> pin point growth, re- incubating. Follow --> Denied symptoms, and no increased weakness but monitor cx, consider tx if develops symptoms/fever/elevation in WBC (4) BPH loc w urin obs/LUTS: Plan: Continue with Tamsulosin (5) Dementia: Plan: Continue mirtazapine- unsure of who is following this chronically - previously started with psych evaluation in 06/07 for depression secondary to adjustment disorder with depressed mood --> consider increasing to 30mg HS outpatient if needed but has been eating/drinking without issue and will continue current dose. Can increase on outpatient basis B12 wnl TSH 3.127 wnl B1 checked last admission and was normal, no further supplementation Appears at baseline and actually quite alert/oriented compared to prior reports but family reported issue with feeding/taking pills at home but has not had any issues during inpatient stay (6) Mood disorder: Plan: Previously started on Mirtazapine and if ineffective possible addition of sertraline but could consider increasing remeron as mentioned (7) Severe protein-calorie malnutrition: Plan: Nutrition consultation- evaluate for supplementation with shakes (8) GERD (gastroesophageal reflux disease): Plan: Continue with PPI BID., Mag 2.0 days (9) Hypertension: Plan: Continue amlodipine 10mg daily BP 137/69 (10) History of hyperparathyroidism: Plan: With history of parathyroid surgery in 2018 secondary to adenomas. -previously followed with Endocrinology- had calcitriol discontinued and then re-instituted in 07/04 -was placed on calcium supplementation for bone health Calcium stable on calcitriol, continued DVT Prophylaxis --Heparin SQ while inpatient Plan: Dispo-plan for dc to SNF at [facility] where his resides , plan for bed on Sunday but will need insurance auth Admission and Anticipated Discharge Date Admission Date: August 17, 2021 Supervising Physician Co-Signing Physician Notes PA Supervision Note: I did not personally see or examine the patient today, but I verified all kign points of JUANIS Ricardo's assessment and plan with the following exceptions/additions: None Subjective Eval this morning. Doing well. No complaints. Awaiting placement. Eating/drinking, moving bowels/urinating without issue. No dysuria or burning reported. Agreeable to placement where his is, discussed likely won't be bed until Sunday. Questions/concerns addressed. Review of Systems Review of Systems: All systems reviewed & are unremarkable except as noted in HPI & below Physical Exam Physical Exam: General: awake, alert, WD elderly gentleman, sitting in bed, NAD HEENT: head normocephalic, atraumatic, mm improved, pupils equal and reactive Resp: able to talk in complete sentences, no accessory muscle use. CTAB, rhonchi bilaterally (improved with deep cough), on 2L NC CV: RRR, no m/r/g, no edema GI: +BS, soft, non-tender, +ventral hernia, +ostomy (detached this morning, replaced, soft brown stool present) : no cardona MSK/Neuro: moves all extremities, CN intact grossly, no facial droop Psych: alert to person/place/year/month, knows in hospital but not the name of the hospital, pleasant and cooperative Results & Data Results & Data ([facility]) Vital Signs (Past 12 Hours) Vital Signs Temp Pulse Resp BP Pulse Ox 08/20/21 07:22 68 18 93 08/20/21 07:10 37.0 C 68 16 137/69 94 08/19/21 21:57 36.7 C 82 18 162/74 H 92 PG Care Time/CCT Total # of Minutes Spent Total Time Spent with Patient: Total time spent is greater than 50% in coordination of care (as documented) at patient's floor/unit and/or counseling patient: Coding Level of Care Code 36068 Subseq Hosp Care Lvl 1 Diagnoses Failure to thrive in adult R62.7 Chronic obstructive pulmonary disease J44.9 Urinary incontinence R32 BPH loc w urin obs/LUTS N40.1 Dementia F03.90 Mood disorder F39 Severe protein-calorie malnutrition E43 GERD (gastroesophageal reflux disease) K21.9 Hypertension I10 Hypertension type: unspecified History of hyperparathyroidism Z86.39 (1) Hypertension Hypertension type: unspecified Qualified Code(s): I10 - Essential (primary) hypertension
[2021-08-20] MEDS: FINASTERIDE 5 MG TAB PO SCH (08:18)
[2021-08-20] MEDS: PANTOprazole 40 MG TAB PO SCH ×2 (08:19→20:45)
[2021-08-20] MEDS: DOCUSATE SODIUM 100 MG CAP PO SCH ×2 (08:19→20:43)
[2021-08-20] MEDS: FLUTICASONE/VILANTEROL 100/25MCG 14 PUFFS/INHALER INH SCH (08:19)
[2021-08-20] MEDS: CALCITRIOL 0.25 MCG CAPSULE PO SCH (08:19)
[2021-08-20] MEDS: HEPARIN SOD 5,000 UNIT/0.5 ML VIAL SQ SCH ×2 (08:19→20:44)
[2021-08-20] MEDS: guaiFENesin 600 MG TABCR PO SCH ×2 (08:19→20:43)
[2021-08-20] MEDS: amLODIPine BESYLATE 5 MG TAB PO SCH (20:42)
[2021-08-20] MEDS: MIRTAZAPINE TAB 15 MG TAB PO SCH (20:44)
[2021-08-20] MEDS: TAMSULOSIN HCL 0.4 MG CAP PO SCH (20:45)
[2021-08-21] MEDS: Albuterol HFA 8 GM Inhaler (Combivent Respimat P&T Subs) INH SCH ×4 (07:12→19:18)
[2021-08-21] MEDS: Ipratropium HFA Inhaler (Combivent Respimat P&T Subs) INH SCH ×4 (07:12→19:18)
--- NOTE | 2021-08-21 08:00 | Hospitalist Progress Note ---
Date of Service August 21, 2021 Assessment & Plan (1) Failure to thrive in adult: Plan: This is family's biggest concern with him returning to home as they are reportedly unable to get him to take his medication and/or eat PT/OT/CM consulted Speech saw -- has also been tolerating diet well while here. Did get started on remeron last admission and is currently on 15mg. Reported by family that he does not allow home [place] assistance in to help him but has been agreeable to care provided here and not having any issues. Eating/drinking well and continuing Remeron at 15mg for now. 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 Followed by pulm, recently seen, talks of palliative but deferred to PCP. At that time Group D COPD Typically had been using 2-2.5L NC at home,was up to 4L at rest on arrival CXR negative, severe emphysema. Mild elevation CO2 on admission Elevation in CO2 likely from overuse of oxygen, and likely need to maintain sats 88% or greater Had been on 4L with SpO2 up to 97%, titrated to 2L and has been stable on room air Plan for ambulatory study to determine current needs with ambulation CO2 improved compared to admission with titration Continue flutter valve, vibration vest, mucinex Speech cleared -- has been tolerating diet without issue (3) Urinary incontinence: Plan: secondary to dementia WBC wnl and has been afebrile Prior urine cx + may 2021 --> monitor although denied urinary symptoms does have hx dementia Urine cx ordered but has been incontinent, monitor --> diphtheroids, no tx indicated (4) BPH loc w urin obs/LUTS: Plan: Continue with Tamsulosin (5) Dementia: Plan: Continue mirtazapine- unsure of who is following this chronically - previously started with psych evaluation in 06/07 for depression secondary to adjustment disorder with depressed mood --> consider increasing to 30mg HS outpatient if needed but has been eating/drinking without issue and will continue current dose. Can increase on o utpatient basis B12 wnl TSH 3.127 wnl B1 checked last admission and was normal, no further supplementation Appears at baseline and actually quite alert/oriented compared to prior reports but family reported issue with feeding/taking pills at home but has not had any issues during inpatient stay (6) Mood disorder: Plan: Previously started on Mirtazapine and if ineffective possible addition of sertraline but could consider increasing remeron as mentioned (7) Severe protein-calorie malnutrition: Plan: Nutrition consultation- evaluate for supplementation with shakes (8) GERD (gastroesophageal reflux disease): Plan: Continue with PPI BID., Mag 2.0 x days (9) Hypertension: Plan: Continue amlodipine 10mg daily BP 111/60 (10) History of hyperparathyroidism: Plan: With history of parathyroid surgery in 2018 secondary to adenomas. -previously followed with Endocrinology- had calcitriol discontinued and then re-instituted in 07/04 -was placed on calcium supplementation for bone health Calcium stable on calcitriol, continued DVT Prophylaxis --Heparin SQ while inpatient Plan: Dispo-plan for dc to SNF at [facility] where his resides , plan for bed on Sunday but will need insurance auth Admission and Anticipated Discharge Date Admission Date: August 17, 2021 Supervising Physician Co-Signing Physician Notes JUANIS Supervision Note: I did not personally see or examine the patient today, but I verified all king points of JUANIS Ricardo's assessment and plan with the following exceptions/additions: None Subjective Patient evaluated this morning. Sitting up in bed, no issues. Eating/drinking without issues, ostomy functioning. Awaiting placement. No shortness of breath, fever, chills, chest pain. Currently on room air. Review of Systems Review of Systems: All systems reviewed & are unremarkable except as noted in HPI & below Physical Exam Physical Exam: General: awake, alert, WD elderly gentleman, sitting up in chair looking out the window, NAD HEENT: head normocephalic, atraumatic, mm improved, pupils equal and reactive Resp: able to talk in complete sentences, no accessory muscle use. coarse breath sounds bilaterally (improved with cough), on room air sitting in air CV: RRR, no m/r/g, no edema GI: +BS, soft, non-tender, +ventral hernia (non-tender), +ostomy (soft brown stool present) : no cardona MSK/Neuro: moves all extremities, CN intact grossly, no facial droop Psych: alert to person/place/year/month, knows in hospital but not the name of the hospital, pleasant and cooperative Results & Data Results & Data ([facility]) Vital Signs (Past 12 Hours) Vital Signs Temp Pulse Resp BP Pulse Ox 08/21/21 07:40 36.7 C 70 16 111/60 93 08/21/21 07:14 77 18 94 08/21/21 05:28 18 91 08/21/21 01:26 90 08/20/21 22:06 37.1 C 72 20 138/50 L 91 08/20/21 20:10 75 18 94 PG Care Time/CCT Total # of Minutes Spent Total Time Spent with Patient: Total time spent is greater than 50% in coordination of care (as documented) at patient's floor/unit and/or counseling patient: Coding Level of Care Code 27146 Subseq Hosp Care Lvl 1 Diagnoses Failure to thrive in adult R62.7 Chronic obstructive pulmonary disease J44.9 Urinary incontinence R32 BPH loc w urin obs/LUTS N40.1 Dementia F03.90 Mood disorder F39 Severe protein-calorie malnutrition E43 GERD (gastroesophageal reflux disease) K21.9 Hypertension I10 Hypertension type: unspecified History of hyperparathyroidism Z86.39 (1) Hypertension Hypertension type: unspecified Qualified Code(s): I10 - Essential (primary) hypertension
[2021-08-21] MEDS: PANTOprazole 40 MG TAB PO SCH ×2 (09:30→20:03)
[2021-08-21] MEDS: DOCUSATE SODIUM 100 MG CAP PO SCH ×2 (09:30→20:02)
[2021-08-21] MEDS: guaiFENesin 600 MG TABCR PO SCH ×2 (09:30→20:02)
[2021-08-21] MEDS: HEPARIN SOD 5,000 UNIT/0.5 ML VIAL SQ SCH ×2 (09:30→20:03)
[2021-08-21] MEDS: CALCITRIOL 0.25 MCG CAPSULE PO SCH (09:30)
[2021-08-21] MEDS: FLUTICASONE/VILANTEROL 100/25MCG 14 PUFFS/INHALER INH SCH (09:30)
[2021-08-21] MEDS: FINASTERIDE 5 MG TAB PO SCH (09:30)
[2021-08-21] MEDS: SODIUM CHLORIDE 0.9% 500 ML IV SCH (19:07)
[2021-08-21] MEDS: amLODIPine BESYLATE 5 MG TAB PO SCH (20:01)
[2021-08-21] MEDS: MIRTAZAPINE TAB 15 MG TAB PO SCH (20:03)
[2021-08-21] MEDS: TAMSULOSIN HCL 0.4 MG CAP PO SCH (20:03)
[2021-08-22] MEDS: SODIUM CHLORIDE 0.9% 500 ML IV SCH ×3 (01:50→16:26)
[2021-08-22] MEDS: Ipratropium HFA Inhaler (Combivent Respimat P&T Subs) INH SCH ×3 (06:57→14:31)
[2021-08-22] MEDS: Albuterol HFA 8 GM Inhaler (Combivent Respimat P&T Subs) INH SCH ×3 (06:57→14:29)
[2021-08-22] MEDS: CALCITRIOL 0.25 MCG CAPSULE PO SCH (08:55)
[2021-08-22] MEDS: DOCUSATE SODIUM 100 MG CAP PO SCH (08:55)
[2021-08-22] MEDS: guaiFENesin 600 MG TABCR PO SCH (08:55)
[2021-08-22] MEDS: FINASTERIDE 5 MG TAB PO SCH (08:55)
[2021-08-22] MEDS: PANTOprazole 40 MG TAB PO SCH (08:55)
[2021-08-22] MEDS: FLUTICASONE/VILANTEROL 100/25MCG 14 PUFFS/INHALER INH SCH (08:55)
[2021-08-22] MEDS: HEPARIN SOD 5,000 UNIT/0.5 ML VIAL SQ SCH (08:56)
--- NOTE | 2021-08-22 15:13 | Discharge Summary ---
Date of Service August 22, 2021 Admission HPI Per Admitting Provider 86 YOM with medical history of: COPD (on home oxygen), failure to thrive, BPH, Dementia, malnutrition secondary to decrease caloric intake, reported depression, colostomy with hernia. Patient was brought in via EMS from home where he lives with his grandson and grandson's . Did discuss with them on the phone. They were concerned as he still appears to be short of breath at home and coughing as well as reports that he is not getting up out of his chair to eat or take his medications, they report consistent incontinence to the point his depends are falling apart. Patient was previously admitted in May for failure to thrive and hypoxia and family reports that home health did come but the patient stopped letting them in to assist. He was evaluated in June by pulmonary for his end-stage COPD with palliative care discussion started but referred back to PCP. Overall the family is having difficulty taking care of him at home as reported by [id number] and son on the phone. The patient's is at [facility] and they would favor to have him there as well. In the EMD he had a CXR completed and routine labs done to include VBG. VBG with mild hypercarbia above his baseline, elevated bicarb, he has moist cough and wet sounding voice. He is on his baseline 4L oxygen at home. Last TEXTILE FINISHER was from 02/03 noted with aspiration precautions. Patient will be admitted to medical surgical floor- will place on scheduled nebulizers with flutter valve or chest physiotherapy for secretion clearance. [employer]ER consultation and case management consultation for possible placement. Patient does have dementia with poor recall, he is unable to tell me why he came to the hospital or how he got here. He does say that he gets up and walks around the house, and is unable to tell me where his is at. Principal Diagnosis Failure to thrive COPD dementia Discharge Exam General: awake, alert, WD elderly gentleman, sitting up in chair looking out the window, NAD HEENT: head normocephalic, atraumatic, mm improved, pupils equal and reactive Resp: able to talk in complete sentences, no accessory muscle use. coarse breath sounds bilaterally (improved with cough), on room air sitting in air CV: RRR, no m/r/g, no edema GI: +BS, soft, non-tender, +ventral hernia (non-tender), +ostomy (soft brown sto ol present) : no cardona MSK/Neuro: moves all extremities, CN intact grossly, no facial droop Psych: alert to person/place/year/month, knows in hospital but not the name of the hospital, pleasant and cooperative Constitutional WD/WN, vitals as above Eyes + anicteric sclerae Neck trachea midline, no thyromegaly Respiratory normal respiratory effort Auscultation: + rhonchi (bilateral); no crackles and no wheezes Cardiovascular RRR, no murmur, no edema Chest (Breasts) Chest: normal inspection of chest Gastrointestinal (Abdomen) Inspection/Auscultation: normal bowel sounds; + abdomen abnormal to inspection (large ventral hernia reducible,ostomy bag full of stool) Percussion/Palpation: abdomen soft; abdomen nontender Musculoskeletal Extremities: extremities normal to inspection; no cyanosis and no clubbing Skin no rashes, warm and dry Neurologic moves all extremities and awake; no focal motor deficits Psychiatric Orientation: alert, oriented to person, oriented to place and cooperative Lymphatic no lymphedema Discharge Data Allergies Allergy/AdvReac Type Severity Reaction Status Date / Time morphine AdvReac Severe Agitated Verified 08/15/21 21:46 Consultations 08/15/21 20:24 ED Decision to Admit Stat Hospital Course (1) Failure to thrive in adult: This is family's biggest concern with him returning to home as they are reportedly unable to get him to take his medication and/or eat PT/OT/CM consulted Speech saw -- has also been tolerating diet well while here. Did get started on remeron last admission and is currently on 15mg. Reported by family that he does not allow home [place] assistance in to help him but has been agreeable to care provided here and not having any issues. Eating/drinking well and continuing Remeron at 15mg for now. 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 Followed by pulm, recently seen, talks of palliative but deferred to PCP. At that time Group D COPD Typically had been using 2-2.5L NC at home,was up to 4L at rest on arrival CXR negative, severe emphysema. Mild elevation CO2 on admission Elevation in CO2 likely from overuse of oxygen, and likely need to maintain sats 88% or greater Had been on 4L with SpO2 up to 97%, titrated to 2L and has been stable on room air CO2 improved compared to admission with titration Continue flutter valve, vibration vest, mucinex Speech cleared -- has been tolerating diet without issue (3) Urinary incontinence: secondary to dementia WBC wnl and has been afebrile Prior urine cx + may 2021 --> monitor although denied urinary symptoms does have hx dementia Urine cx ordered but has been incontinent, monitor --> diphtheroids, no tx indicated (4) BPH loc w urin obs/LUTS: Continue with Tamsulosin (5) Dementia: Continue mirtazapine- unsure of who is following this chronically - previously started with psych evaluation in 06/07 for depression secondary to adjustment disorder with depressed mood --> consider increasing to 30mg HS outpatient if needed but has been eating/drinking without issue and will continue current dose. Can increase on outpatient basis B12 wnl TSH 3.127 wnl B1 checked last admission and was normal, no further supplementation Appears at baseline and actually quite alert/oriented compared to prior reports but family reported issue with feeding/taking pills at home but has not had any issues during inpatient stay (6) Mood disorder: Previously started on Mirtazapine and if ineffective possible addition of sertraline but could consider increasing remeron as mentioned (7) Severe protein-calorie malnutrition: Nutrition consultation- evaluate for supplementation with shakes (8) GERD (gastroesophageal reflux disease): Continue with PPI BID., Mag 2.0 x days (9) Hypertension: Continue amlodipine 10mg daily BP 111/60 (10) History of hyperparathyroidism: With history of parathyroid surgery in 2018 secondary to adenomas. -previously followed with Endocrinology- had calcitriol discontinued and then re-instituted in 07/04 -was placed on calcium supplementation for bone health Calcium stable on calcitriol, continued DVT Prophylaxis --Heparin SQ while inpatient Dispo-plan for dc to SNF at [facility] where his [facility] , plan for bed on Sunday but will need insurance auth Total Time Total Time Spent Total Time Spent (In Minutes): 45 Discharge Plan Discharge Items Patient Disposition: Transfer Half-Way Fac Reason For Visit: FAILURE TO THRIVE Discharge Diagnosis: Failure to thrive Activity: Resume your previous activity Non-emergency contact: Primary Care Provider Call non-emergency contact if: your symptoms worsen Follow-up/Referrals: Mateus Boyd MD [Primary Care Provider] - Diet: Regular Addtl Attending Provider Instructions: The patient needs to have walking test at the facility to see what her baseline oxygen requirement is, given history of COPD and tendency to retain PCO2 , his oxygen saturation should be between 88 to 90% Stand-Alone Forms: [facility] Medications and DC Order Prescriptions: No Action guaifenesin 600 mg tablet extended release 12hr 600 mg PO BID Qty: 60 RF: 0 pantoprazole 40 mg tablet,delayed release (DR/EC) 40 mg PO BID Qty: 60 RF: 11 finasteride 5 mg tablet 5 mg PO DAILY Qty: 90 RF: 3 tamsulosin 0.4 mg capsule 0.4 mg PO HS Qty: 90 RF: 3 calcitriol 0.25 mcg capsule 0.25 mcg PO DAILY Qty: 30 RF: 5 calcium carbonate [Tums Ultra] 400 mg calcium (1,000 mg) tablet,chewable 400 mg PO BID RF: 0 mirtazapine [Remeron] 15 mg tablet 15 mg PO DAILY Qty: 90 RF: 3 Combivent Respimat 20-100 mcg/actuation mist 1 puff INHALATION QID Qty: 1 RF: 3 fluticasone propion-salmeterol [Advair Diskus] 250-50 mcg/dose blister with device 1 inh INHALATION BID Qty: 60 RF: 3 docusate sodium 100 mg Capsule 200 mg PO BID RF: 0 Centrum Silver 0.4-300-250 mg-mcg-mcg Tablet 1 tab PO DAILY RF: 0 Saccharomyces boulardii [Florastor] 250 mg Capsule 250 mg PO DAILY RF: 0 amlodipine 10 mg tablet 10 mg PO PM RF: 0 Admission Data Admit Date/Time: 08/17/21 15:23 Attending Provider: Gonzalo Evans Admit Provider: Darshana Cooper Primary Care Provider: Mateus Boyd Other Providers: Darshana Cooper ; [facility] Coding Level of Care Code D/C DAY MANAGEMENT >30 MINS Diagnoses Failure to thrive in adult R62.7 Chronic obstructive pulmonary disease J44.9 Urinary incontinence R32 BPH loc w urin obs/LUTS N40.1 Dementia F03.90 Mood disorder F39 Severe protein-calorie malnutrition E43 GERD (gastroesophageal reflux disease) K21.9 Hypertension I10 Hypertension type: unspecified History of hyperparathyroidism Z86.39
== END 2021-08-22 17:24 | DRG 640 ==
LOC: 3N 18:21 → ED 18:21 → SUATTDRO 21:37 → 3N 23:00 → SUATTDRO 08-17 15:23